=== PATIENT | female | born 1940 | race Caucasian/White ===

== ENCOUNTER 2018-04-18 14:25 | Inpatient (IN) ==
--- NOTE | 2018-04-18 15:22 | General Surgery Consult Note ---
<FadiEddie Ivanna - Last Filed: 04/18/18 17:13> Date of Encounter: 04/18/18 Time of Encounter: 15:50 Assessment and Plan (1) Mass of colon Current Visit: Yes Status: Acute CT shows mass in the sigmoid colon and bowel obstruction with dilated bowel loops Abdomen with tympany - unlikely to be able to have an adequate bowel prep for colonoscopy Labs: mild leukocytosis (13.8), no anemia, platelets 411, mild hypokalemia (3.1) , BUN and Cr normal PLAN: NPO in prep for OR IV fluids and antibiotics Replace potassium Will proceed with proctosigmoidectomy with diverting colostomy this evening - risks and benefits discussed, questions answered - signed consent completed (2) Bowel obstruction Current Visit: Yes Status: Acute Plan as above Qualifiers: Intestinal obstruction type: unspecified Intestinal obstruction extent: partial Qualified Code(s): K56.600 - Partial intestinal obstruction, unspecified as to cause History of Present Illness Consult date: 04/18/18 Reason for consult: other (sigmoid colon mass, perforated viscus) Requesting physician: Best Stevens History of present illness: Ms. Álvarez is a 78 year old female with PMH of dementia, HTN, HLD, hypothyroidism, and venous stasis, with PSH of tubal ligation, presented to [facility] with N/V/D and weakness for the past couple of days. She is very sleepy upon my exam. She can communicate and knows her name, but does not carry on much conversation beyond that. She has not been reporting abdominal pain. They report that she had no BM' s for the past couple of days, until this morning when she had diarrhea. Normally she has a BM daily, and intermittently she will have some mild diarrhea. No hematochezia, melena, or change in stool caliber. Family does report a 12# weight loss. no prior colonoscopy. She has care by family 24 hours a day. They report she has been refusing to eat or drink over this time period as well. Becoming increasingly confused. Normally able to walk around the house on her own. Also admits to a productive cough. No fevers or chills. She has not had anything to eat today. No smoking or alcohol history. No history of heart problems or lung problems. CT w/ IV contrast shows suspected infiltrating mass of the sigmoid colon. Mild dilatation of the colon proximal to the mass suggests an element of obstruction. Sigmoid diverticulosis with no evidence of diverticulitis. Cholelithiasis without findings of cholecystitis. Free fluid in the pelvis. Past Med Surg Social Fam HX - Past Medical History Medical history: hyperlipidemia, hypertension, thyroid disease, venous stasis Psychiatric history: depression - Social History Smoking Status: Never smoker Smokeless Tobacco Status: No Alcohol use: none Drug use: none Medications and Allergies Aspirin [Lo-Dose Aspirin EC] 81 mg PO DAILY 04/18/18 [History] Citalopram [CeleXA] 30 mg PO DAILY 04/18/18 [History] Donepezil HCl [Aricept] 10 mg PO HS 04/18/18 [History] Levothyroxine [Synthroid] 100 mcg PO DAILY 04/18/18 [History] Lisinopril-HCTZ 10-12.5 [Prinzide 10-12.5] 1 each PO DAILY 04/18/18 [History] Potassium Chloride [K-Tab ER] 20 meq PO DAILY 04/18/18 [History] Simvastatin [Zocor] 20 mg PO DAILY 04/18/18 [History] 3 Allergy/AdvReac Type Severity Reaction Status Date / Time No Known Allergies Allergy Verified 04/20/17 08:49 Review of Systems All systems PM: reviewed and no additional remarkable complaints except as stated All systems PM: The remainder of the systems were reviewed and are negative General Surgery Exam - General physical appearance well developed, well nourished, no distress - Eyes normal ocular movement - Respiratory normal expansion, normal respiratory effort, clear to auscultation - Cardiovascular Cardiovascular exam: Present: RRR - Abdomen Abdomen general surgery: Present: bowel sounds present, soft, tympanic, tender ( difficult to determine, pushes hand away when palpating LLQ), guarding, surgical scars (midline) - Integumentary Integumentary general surgery: Present: warm and dry, no abnormal pigmentation - Psychiatric Psychiatric general surgery: Present: oriented to person, oriented to place Results - Labs 04/18/18 15:56 All other labs normal. Consult Discharge Plan - Plan Referrals: Albertina Zapien MD [Primary Care Provider] - <Virgil Hernandez - Last Filed: 04/18/18 20:22> Date of Encounter: 04/18/18 Review of Systems All systems PM: The remainder of the systems were reviewed and are negative General Surgery Exam Initial Vital Signs Temp Pulse Resp BP Pulse Ox 99.3 F 80 14 128/77 97 04/18/18 16:36 04/18/18 16:36 04/18/18 16:36 04/18/18 16:36 04/18/18 16:36 Exam Initial Vital Signs Temp Pulse Resp BP Pulse Ox 99.3 F 80 14 128/77 97 04/18/18 16:36 04/18/18 16:36 04/18/18 16:36 04/18/18 16:36 04/18/18 16:36 Results - Labs 04/18/18 15:56 Abnormal lab results Potassium 3.3 mEq/L (3.5-5.1) L 04/18/18 15:56 Glucose 139 mg/dL (70-105) H 04/18/18 15:56 Diabetes panel 04/18/18 Range/Units 15:56 Sodium 139 (136-145) mEq/L Potassium 3.3 L (3.5-5.1) mEq/L Chloride 104 (98-107) mEq/L Carbon Dioxide 27 (23-29) mEq/L BUN 19 (8-23) mg/dL Creatinine 0.88 (0.60-1.20) mg/dL Glucose 139 H (70-105) mg/dL Calcium 8.9 (8.6-10.3) mg/dL Calcium panel 04/18/18 Range/Units 15:56 Calcium 8.9 (8.6-10.3) mg/dL Pituitary panel 04/18/18 Range/Units 15:56 Sodium 139 (136-145) mEq/L Potassium 3.3 L (3.5-5.1) mEq/L Chloride 104 (98-107) mEq/L Carbon Dioxide 27 (23-29) mEq/L BUN 19 (8-23) mg/dL Creatinine 0.88 (0.60-1.20) mg/dL Glucose 139 H (70-105) mg/dL Calcium 8.9 (8.6-10.3) mg/dL Adrenal panel 04/18/18 Range/Units 15:56 Sodium 139 (136-145) mEq/L Potassium 3.3 L (3.5-5.1) mEq/L Chloride 104 (98-107) mEq/L Carbon Dioxide 27 (23-29) mEq/L BUN 19 (8-23) mg/dL Creatinine 0.88 (0.60-1.20) mg/dL Glucose 139 H (70-105) mg/dL Calcium 8.9 (8.6-10.3) mg/dL All other labs normal. - Attending Attestation I examined this patient and my medical decision-making was reviewed with the Resident Physician. I agree with the documented findings, disposition and treatment plan as described except to the extent set forth below. The patient is seen and evaluated with resident after transfer from [place] emergency room. She has lost weight and not eaten for several days. She has mild hypokalemia. CAT scan demonstrates bowel obstruction at the level of the rectosigmoid. I personally reviewed the films and agree with the findings of a likely infiltrative mass at this level. In her age group, with no previous colonoscopy, colon cancer is at the top of the differential. Her colon is obstructed and I think that immediate exploration and Torrez's procedure is indicated. I shared this information with the family. Perioperative care and patients with this severity of dementia is always challenging. I also shared this with the family we will proceed with Torrez's procedure symptoms possible. Virgil Hernandez MD FACS
[2018-04-18] MEDS ORDERED: OXYCODONE Oral CONC 10 MG/0.5 ML ORAL.SYG SL PRN ×2 (15:25→21:55)
[2018-04-18] MEDS ORDERED: 0.9 % Sodium Chloride 1,000 ML IVC SCH (15:30)
[2018-04-18] MEDS ORDERED: MetroNIDAZOLE 500 MG/100 ML 500 MG/100 ML BAG IVPB SCH (16:00)
[2018-04-18 16:51] LABS: BUN/Creatinine Ratio 22 (6-26); Blood Urea Nitrogen 19 mg/dL (8-23); Calcium 8.9 mg/dL (8.6-10.3); Carbon Dioxide 27 mEq/L (23-29); Carcinoembryonic Antigen 1.4 ng/mL (Less than 5.0); Chloride 104 mEq/L (98-107); Glucose 139 mg/dL (70-105); Osmolality,Calculated 293 (280-300); Potassium 3.3 mEq/L (3.5-5.1); Sodium 139 mEq/L (136-145); eGFR For African Americans > 60 (> 60); eGFR For Non-African Americans > 60 (> 60)
--- NOTE | 2018-04-18 17:58 | Anesthesia Evaluation PreOp ---
Date of Encounter: 04/18/18 Time of Encounter: 18:00 - Past History Planned Operation: Torrez's Procedure Cardiac History: HTN, Hyperlipidemia Pulmonary History: Denies Any Significant HX COMPUTER SYSTEMS TECHNICIAN History: Denies Any Significant HX Other Medical History: Thyroid, Other (Depression) Anesthesia History: No Prior Anesthetic Complications : No Alcohol Use: none Drug use: none Medications and Allergies Aspirin [Lo-Dose Aspirin EC] 81 mg PO DAILY 04/18/18 [History] Citalopram [CeleXA] 30 mg PO DAILY 04/18/18 [History] Donepezil HCl [Aricept] 10 mg PO HS 04/18/18 [History] Levothyroxine [Synthroid] 100 mcg PO DAILY 04/18/18 [History] Lisinopril-HCTZ 10-12.5 [Prinzide 10-12.5] 1 each PO DAILY 04/18/18 [History] Potassium Chloride [K-Tab ER] 20 meq PO DAILY 04/18/18 [History] Simvastatin [Zocor] 20 mg PO DAILY 04/18/18 [History] 3 Allergy/AdvReac Type Severity Reaction Status Date / Time No Known Allergies Allergy Verified 04/20/17 08:49 - Meds/Allergy Pre-op Review Medications Reviewed: Yes Allergies Reviewed: Yes Beta Blockers on Current Med List: No Anesthesia Results - Labs 04/18/18 15:56 Laboratory Tests 04/18/18 04/18/18 10:05 15:56 Hgb 13.8 Hct 41.4 Plt Count 411 H Sodium 139 Potassium 3.3 L BUN 19 Creatinine 0.88 - Imaging EKG: report reviewed Anesthesia Exam Vital Signs/O2 Sat/Glucose, Most Current Temp Pulse Resp BP Pulse Ox 04/18/18 16:36 99.3 F 80 14 128/77 97 Height: 5'2 Weight: 174 lbs NPO (# of Hours): MN Pain Scale: 0 - HEENT Pupil (Motor): Pupils equal, EOMI Mallampati: II Oral Opening: Greater than 3 - COMPUTER SYSTEMS TECHNICIAN LOC: Oriented COMPUTER SYSTEMS TECHNICIAN Motor: Normal RUE, Normal LUE, Normal RLE, Normal LLE, Normal Face COMPUTER SYSTEMS TECHNICIAN Sensory: Normal: RUE, LUE, RLE, LLE, Face - Cardiac Rhythm: Regular Murmur: None JVD: No Carotid Bruit: No - Pulmonary Breath Sounds: bilateral Clear Respiratory Effort: Symmetrical Anesthesia Assess/Plan ASA Score: 2 Modified Isreal Scale for Level of Consciousness: Cooperative, oriented, and tranquil Anesthetic Plan: General, Regional (Discussed GA, possible TAP Block, agrees to proceed) Monitoring Plan: Standard Monitors Recovery Plan: PACU
[2018-04-18] MEDS ORDERED: Acetaminophen IV 1,000 MG/100 ML INFUS..BTL ONE (18:06)
[2018-04-18] MEDS ORDERED: Famotidine 20 MG/2 ML VIAL ONE (18:07)
[2018-04-18] MEDS ORDERED: *HR* Propofol 200 MG/20 ML VIAL IVP ONE (18:09)
[2018-04-18] MEDS ORDERED: *HR* FentaNYL (PF) 100 MCG/2 ML VIAL ONE ×2 (18:09→19:15)
[2018-04-18] MEDS ORDERED: *HR* Midazolam HCl 2 MG/2 ML VIAL ONE (18:09)
[2018-04-18] MEDS ORDERED: CefOXitin 1,000 MG VIAL ONE ×2 (18:10→19:25)
[2018-04-18] MEDS ORDERED: Dexamethasone 4 MG/ML VIAL ONE (18:24)
[2018-04-18] MEDS ORDERED: Ondansetron 4 MG/2 ML VIAL ONE (18:24)
[2018-04-18] MEDS ORDERED: *HR* Rocuronium Bromide 50 MG/5 ML VIAL ONE (18:24)
[2018-04-18] MEDS ORDERED: Lidocaine -MPF 2% 2 ML VIAL ONE (18:24)
[2018-04-18] MEDS ORDERED: *HR* Succinylcholine 200 MG/10 ML VIAL IVP ONE (18:24)
[2018-04-18] MEDS ORDERED: *HR* PHENYLEPHRINE 1,000 MCG/10 ML SYRINGE IVP ONE (18:42)
[2018-04-18] MEDS ORDERED: EPHEDrine 50 MG/ML VIAL ONE (18:49)
[2018-04-18] MEDS ORDERED: *HR* Morphine 10 MG/ML VIAL ONE (19:04)
[2018-04-18] MEDS ORDERED: Ondansetron 4 MG/2 ML VIAL IVP PRN (19:23)
[2018-04-18] MEDS ORDERED: Naloxone 0.4 MG/ML INJ IVP PRN ×2 (19:23→21:55)
--- NOTE | 2018-04-18 19:36 | Internal Med History&Physical ---
Date of Encounter: 04/18/18 Time of Encounter: 15:37 Internal Medicine - H&P: HPI Chief complaint: Sigmoid Colon Mass and Bowel Obstruction Admitted From: Intrahospital Transfer Plans for Post Hospital Care: Transfer Inp Rehab Fac History of present illness: Ms. Stinson is a 78 year old female who presented to [facility] ED today with a few day history of nausea, vomiting, diarrhea, poor PO intake, and generalized weakness. She has history of dementia, but usually awake and conservative. She is somnolent at this time and cannot provide any history. Family is in room and provides all of history. Patient shakes her head and denies any pain at this time. She has only had diarrhea starting today. Family denies hematochezia or melena. Family denies hematemesis. She has started to become increasingly confused from her baseline. She was previously walking on her own. At [facility] ED, she was found to have WBC of 13.8 and potassium of 3.1. CXR showed bibasilar atelectasis. CT abdomen/pelvis showed suspected infiltrating mass of sigmoid colon and mild dilatation of colon proximal to mass suggesting obstruction. She was given IV KCl and IV NS in [place] ED. She was transferred here for surgical consultation. Dr. Hernandez was surgeon consulted. I discussed case in person with him. He is planning to take to OR and perform proctosigmoidectomy with diverting colostomy this evening. He discussed risks family, and they are in agreement with proceeding with surgery. Past Med Surg Social Fam HX - Past Medical History Attestation: Yes The following information was validated with the patient. Source: obtained from family Medical history: hyperlipidemia, hypertension, thyroid disease, venous stasis Psychiatric history: depression - Past Surgical History Surgical History: no surgical history - Social History Smoking Status: Never smoker Smokeless Tobacco Status: No Alcohol use: none Drug use: none - Additional Family History Additional family history: No significant family history per patient's family. Internal Medicine - H&P: Meds Aspirin [Lo-Dose Aspirin EC] 81 mg PO DAILY 04/18/18 [History] Citalopram [CeleXA] 30 mg PO DAILY 04/18/18 [History] Donepezil HCl [Aricept] 10 mg PO HS 04/18/18 [History] Levothyroxine [Synthroid] 100 mcg PO DAILY 04/18/18 [History] Lisinopril-HCTZ 10-12.5 [Prinzide 10-12.5] 1 each PO DAILY 04/18/18 [History] Potassium Chloride [K-Tab ER] 20 meq PO DAILY 04/18/18 [History] Simvastatin [Zocor] 20 mg PO DAILY 04/18/18 [History] 3 Allergy/AdvReac Type Severity Reaction Status Date / Time No Known Allergies Allergy Verified 04/20/17 08:49 All Systems PM: Unable to obtain ROS from patient due to non-verbal and altered status. - Constitutional Vitals: Temp Pulse Resp BP Pulse Ox 99.3 F 80 14 128/77 97 04/18/18 16:36 04/18/18 16:36 04/18/18 16:36 04/18/18 16:36 04/18/18 16:36 General appearance: Present: A&O X 0, cooperative, no acute distress. Absent: answers questions appropriately Exam: Non-verbal - Head Head exam: Present: atraumatic, normal inspection, normocephalic - Eye Eye exam: Present: EOMI, PERRL. Absent: conjunctival injection, nystagmus, scleral icterus - ENT ENT exam: Present: mucous membranes moist, normal external ear exam, normal oropharynx - Neck Neck exam general surgery: Present: supple, trachea midline. Absent: lymphadenopathy, tenderness, thyromegaly - Respiratory Respiratory exam: Present: CTAB. Absent: accessory muscle use, rales, rhonchi, wheezes Additional comments: Normal WOB - Cardiovascular Cardiovascular exam: Present: RRR, +S1, +S2. Absent: diastolic murmur, gallop, rubs, systolic murmur Additional comments: No BLE edema - GI/Abdominal GI/Abdominal exam: Present: hyperactive bowel sounds (Tympanic, high-pitched bowel sounds loudest in LLQ), soft, tenderness (Mild TTP diffusely across abdomen). Absent: distended, guarding, hepatomegaly, mass, rebound, splenomegaly - Neurological Exam Neurological exam: Present: no focal deficits. Absent: motor sensory deficit, facial droop Additional comments: Unable to fully evaluate due to patient condition - Psychiatric Additional comments: Unable to evaluate due to patient condition - Skin Skin exam: Present: dry, intact, warm. Absent: cyanosis, rash Internal Med - H&P Results - Labs CBC & Chem 7: 04/18/18 15:56 Labs: BMP 04/18/18 15:56 Sodium 139 Potassium 3.3 L Chloride 104 Carbon Dioxide 27 BUN 19 Creatinine 0.88 Glucose 139 H Calcium 8.9 - Assessment and plan (1) Bowel obstruction Current Visit: Yes Status: Acute Assessment and plan: Secondary to sigmoid colon mass. Surgery consulted; appreciate input. I have discussed case in person with Dr. Hernandez, who plans on taking patient for proctosigmoidectomy with diverting colostomy this evening. Will continue NPO, IVF, replete electrolytes, and control N/V with IV zofran. Oxycodone SL PRN pain. Start IV protonix for GI prophylaxis. Start IV flagyl and IV cipro. Recheck labwork in AM. PT/OT/SW consulted for discharge planning. Qualifiers: Intestinal obstruction type: unspecified Intestinal obstruction extent: partial Qualified Code(s): K56.600 - Partial intestinal obstruction, unspecified as to cause (2) Mass of colon Current Visit: Yes Status: Acute Assessment and plan: Management as per above. Plan for surgery today. Follow up on biopsy results. May need heme/onc consult based on biopsy results. (3) Hypokalemia Current Visit: Yes Status: Acute Assessment and plan: K= 3.3. Give KCl 40 mEq IV once. Recheck BMP in AM. (4) Atelectasis of both lungs Current Visit: Yes Status: Acute Assessment and plan: Start incentive spirometer when awake and post-op. (5) HTN (hypertension) Current Visit: Yes Status: Chronic Assessment and plan: Continue home medications when tolerating PO. Start hydralazine 10 mg IV Q6H PRN systolic BP > 160 and/or diastolic BP > 100. Qualifiers: Hypertension type: essential hypertension Qualified Code(s): I10 - Essential (primary) hypertension (6) HLD (hyperlipidemia) Current Visit: Yes Status: Chronic Assessment and plan: Continue home medications when tolerating PO. Qualifiers: Hyperlipidemia type: mixed hyperlipidemia Qualified Code(s): E78.2 - Mixed hyperlipidemia (7) Hypothyroidism Current Visit: Yes Status: Acute Assessment and plan: Hold home PO levothyroxine until tolerating PO. Start IV levothyroxine at home dose for now. Qualifiers: Hypothyroidism type: unspecified Qualified Code(s): E03.9 - Hypothyroidism , unspecified (8) DVT prophylaxis Current Visit: Yes Status: Acute Assessment and plan: Start SQ heparin. - Time Spent With Patient Total time spent is greater than 50% in coordination of care (as documented) at patient's floor/unit and/or counseling patient: less than 15 minutes
[2018-04-18] MEDS ORDERED: Povidone-Iodine 28.4 GM TUBE TP ONE (19:41)
[2018-04-18] MEDS ORDERED: Levothyroxine Sodium 100 MCG VIAL IVP SCH (19:45)
[2018-04-18] MEDS ORDERED: Pantoprazole 40 MG VIAL IVP SCH (19:45)
[2018-04-18] MEDS ORDERED: Bupivacaine/EPI 1:200k 0.5%PF 30 ML VIAL ONE (19:49)
--- NOTE | 2018-04-18 20:33 | Operative Note ---
Date of procedure: 04/18/18 Pre-op diagnosis: Sigmoid colon obstruction secondary to infiltrating mass Post-op diagnosis: other (Sigmoid colon obstruction indistinct infiltrating mass ) Procedure: Torrez's procedure. Sigmoid colectomy with end colostomy Anesthesia: MEGAN Surgeon: Virgil Hernandez Was there an assistant director of plant operations present: Yes Director Radio News: Lyric Romero Estimated blood loss (cc): 75 Specimen: Sigmoid colon and rectosigmoid mass Condition: stable Disposition: PACU Procedure in Detail: After informed consent the patient was taken to the major operative suite placed supine position given adequate general anesthetic. Norton catheter was placed. The abdomen was prepped and draped in sterile fashion utilizing ChloraPrep standard draping techniques. Timeout was taken and patient was identified. Made a lower abdominal midline incision. The abdomen was entered. There were some adhesions between the fallopian tube in the sigmoid colon. The sigmoid colon and cecum were very dilated. There was transudate fluid in the abdomen consistent with bowel obstruction. We traced the dilated sigmoid colon to the rectosigmoid. The rectum was absolutely flaccid. The rectosigmoid was rock hard over a 4 cm length. I was able to mobilize the fallopian tubes and uterus off the rectosigmoid and sigmoid colon. I divided the lateral peritoneal attachments to the rectosigmoid. The sigmoid colon was divided at its midportion with a stapler. The end of the staple line failed and there was some spillage of stool in the abdomen. The area of staple line failure was immediately closed with interrupted silk. There was no further spillage. I divided the sigmoid mesentery with clamps and hemostatic ligatures. I obtained full mobilization rectum. I divided the rectum just below the level of the pelvic inlet. This was done with contour stapler and staple line was intact. I divided the remaining portions of the mesentery to the rectum. Specimen was passed off the field clinically a rockhard mass about 4 cm the sigmoid colon was mobilized. I irrigated the abdomen with copious amounts of antibiotic containing solution. I made an opening in the left lower quadrant and brought the sigmoid colon out in a tension-free manner to perform end colostomy. I irrigated the abdomen again and closed the midline with looped 0 PDS. Skin was closed with interrupted Vicryl and skin clips. I matured the colostomy with 3 point 3-0 Vicryl's. She tolerated the procedure well. I opened the specimen. I was unable to identify any mucosal defect consistent with malignancy. The differential diagnosis still includes colon cancer but now also includes perforated diverticular disease with severe scar causing complete colon obstruction. She tolerated the procedure well and was transferred to recovery in stable condition
--- NOTE | 2018-04-18 22:17 | Anesthesia Evaluation Post Op ---
Date of Encounter: 04/18/18 Time of Encounter: 22:16 - Vital Signs Vital Signs: Vital Signs/O2 Sat, Most Current Temp Pulse Resp BP Pulse Ox 97.5 F L 111 18 112/70 96 04/18/18 22:00 04/18/18 22:00 04/18/18 22:00 04/18/18 22:00 04/18/18 22:00 - Lungs Lungs: Clear Ascult./Percussion - Airway Airway: Non-obstructed - Cardiovascular Regular Rate - Mental Status Mental Status: Asleep with brisk response to light stimulation, Baseline Status - Pain Pain Scale: 0 Pain Scale used: Numeric (1 - 10) - Nausea Vomiting Nausea Vomiting: Not Present - Hydration Hydration: NPO, Norton catheter - Discharge PostOp Status: Transfer Patient to floor
[2018-04-18] MEDS: 0.9 % Sodium Chloride 1,000 ML IVC SCH (23:09)
[2018-04-19] MEDS: MetroNIDAZOLE 500 MG/100 ML 500 MG/100 ML BAG IVPB SCH ×3 (00:27→15:19)
[2018-04-19 05:30] LABS: Basophils % 0.1 %; Hematocrit 39.3 % (35.3-44.9); Hemoglobin 12.6 g/dL (11.5-15.4); Immature Granulocytes % 0.2 % (0-4); Lymphocytes # 0.4 K/mcL (0.6-4.6); Lymphocytes % 4.4 %; Mean Corpuscular HGB Conc 32.1 g/dL (31.6-35.5); Mean Corpuscular Hemoglobin 28.3 pg (28.0-33.3); Mean Corpuscular Volume 88.1 fL (83.0-100.0); Mean Platelet Volume 10.8 fL (9.4-12.4); Monocytes # 0.4 K/mcL (0.0-1.3); Monocytes % 4.7 %; Neutrophils # 8.2 K/mcL (1.6-8.9); Platelet Count 331 K/mcL (140-400); Red Blood Count 4.46 M/mcL (3.82-4.97); Red Cell Distribution Width 13.4 % (11.5-14.5); Segmented Neutrophils % 90.6 %
[2018-04-19 05:38] LABS: INR 1.3; Prothrombin Time 14.2 Seconds (9.4-12.1)
[2018-04-19 05:41] LABS: Activated Partial Thrombo Time 27.2 Seconds (26.0-36.0)
[2018-04-19 05:45] LABS: Platelet Estimate Normal (Normal)
[2018-04-19 05:54] LABS: Alanine Aminotransferase 20 Units/L (7-52); Albumin 2.8 g/dL (3.5-5.7); Alkaline Phosphatase 80 Units/L (34-104); Aspartate Amino Transferase 21 Units/L (13-39); BUN/Creatinine Ratio 17 (6-26); Bilirubin,Total 0.8 mg/dL (0.3-1.0); Blood Urea Nitrogen 16 mg/dL (8-23); Calcium 7.7 mg/dL (8.6-10.3); Carbon Dioxide 20 mEq/L (23-29); Chloride 108 mEq/L (98-107); Globulin 2.7 g/dL (2.4-3.5); Glucose 216 mg/dL (70-105); Magnesium 1.4 mg/dL (1.6-2.6); Osmolality,Calculated 294 (280-300); Phosphorous 3.2 mg/dL (2.7-4.5); Potassium 3.4 mEq/L (3.5-5.1); Sodium 138 mEq/L (136-145); Total Protein 5.5 g/dL (6.4-8.9); eGFR For African Americans > 60 (> 60); eGFR For Non-African Americans 59 (> 60)
[2018-04-19] MEDS: 0.9 % Sodium Chloride 1,000 ML IVC SCH ×3 (05:55→16:52)
[2018-04-19] MEDS: *HR* Heparin 5,000 UNIT/ML VIAL SQ SCH ×2 (05:55→16:52)
[2018-04-19] MEDS ORDERED: *HR* Heparin 5,000 UNIT/ML VIAL SQ SCH (06:00)
[2018-04-19] MEDS ORDERED: Levothyroxine Sodium 100 MCG VIAL IVP SCH (06:30)
[2018-04-19] MEDS ORDERED: Potassium Chloride 40 MEQ, Lidocaine 1% 2 ML in D5% in Water 500 ML IVPB ONE (07:19)
--- NOTE | 2018-04-19 08:07 | Internal Med Progress Note ---
<Eric Cevallos - Last Filed: 04/19/18 13:30> Date of Encounter: 04/19/18 Time of Encounter: 08:05 - Assessment and plan (1) Bowel obstruction Current Visit: Yes Status: Resolved Assessment and plan: Secondary to sigmoid colon mass. POD#1 s/p Torrez's procedure, sigmoid colectomy with end colostomy Surgery following Continue NPO, IVF, replete electrolytes, and control N/V with IV zofran. Oxycodone SL PRN pain. Continue IV protonix for GI prophylaxis Continue IV flagyl and IV cipro. Recheck labwork in AM. Advance diet once approved by surgeon PT/OT/SW consulted for discharge planning. Qualifiers: Intestinal obstruction type: unspecified Intestinal obstruction extent: partial Qualified Code(s): K56.600 - Partial intestinal obstruction, unspecified as to cause (2) Mass of colon Current Visit: Yes Status: Resolved Assessment and plan: Management as per above. Torrez's procedure, Sigmoid colectomy with end colostomy performed 04/18/18 CEA 1.4 Follow up on biopsy results. May need heme/onc consult based on biopsy results. (3) Atelectasis of both lungs Current Visit: Yes Status: Acute Assessment and plan: Encourage incentive spirometery when awake post-op. (4) Hypokalemia Current Visit: Yes Status: Acute Assessment and plan: Given KCl 40 mEq IV Recheck BMP in AM. (5) Hypomagnesemia Current Visit: Yes Status: Acute Assessment and plan: Supplement Mag Continue to monitor (6) HTN (hypertension) Current Visit: Yes Status: Chronic Assessment and plan: Continue home medications when tolerating PO. Continue hydralazine 10 mg IV Q6H PRN systolic BP > 160 and/or diastolic BP > 100. Qualifiers: Hypertension type: essential hypertension Qualified Code(s): I10 - Essential (primary) hypertension (7) HLD (hyperlipidemia) Current Visit: Yes Status: Chronic Assessment and plan: Continue home medications when tolerating PO. Qualifiers: Hyperlipidemia type: mixed hyperlipidemia Qualified Code(s): E78.2 - Mixed hyperlipidemia (8) Hypothyroidism Current Visit: Yes Status: Acute Assessment and plan: Hold home PO levothyroxine until tolerating PO. Continue IV levothyroxine at home dose for now. Qualifiers: Hypothyroidism type: unspecified Qualified Code(s): E03.9 - Hypothyroidism , unspecified (9) Dementia Current Visit: Yes Status: Chronic Assessment and plan: Continue home meds Qualifiers: Dementia type: unspecified type Dementia behavioral disturbance: without behavioral disturbance Qualified Code(s): F03.90 - Unspecified dementia without behavioral disturbance (10) Obesity (BMI 30.0-34.9) Current Visit: No Status: Chronic Assessment and plan: Lifestyle modification (11) DVT prophylaxis Current Visit: Yes Status: Acute Assessment and plan: SQ heparin. 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 Patient denies any c/o. Surgical dressing is intact. - Constitutional Vitals: Temp Pulse Resp BP Pulse Ox 97.5 F L 77 16 94/56 93 04/19/18 07:23 04/19/18 07:23 04/19/18 07:23 04/19/18 07:23 04/19/18 07:23 General appearance: Present: A&O X 0, cooperative, no acute distress, obese. Absent: answers questions appropriately - Head Head exam: Present: atraumatic, normocephalic - Eye Eye exam: Present: PERRL, conjuntiva pink, sclera anicteric Pupils: Present: PERRL - ENT ENT exam: Present: mucous membranes dry, normal oropharynx - Neck Neck exam general surgery: Present: supple, trachea midline. Absent: lymphadenopathy - Respiratory Respiratory exam: Present: CTAB. Absent: accessory muscle use, rales, rhonchi, wheezes - Cardiovascular Cardiovascular exam: Present: RRR, +S1, +S2. Absent: diastolic murmur, gallop, rubs, systolic murmur - GI/Abdominal GI/Abdominal exam: Present: normal bowel sounds, soft, tenderness (appropriate TTP, colostomy site intact), no peritoneal signs. Absent: distended - Extremities Exam Extremities exam: Present: warm, radial pulses palpable and symmetrical. Absent : calf tenderness, cyanotic, pedal edema - Incison Incision: Present: clean and dry, intact - Back Exam Back exam: Present: normal inspection. Absent: paraspinal tenderness, tenderness - Neurological Exam Neurological exam: Present: CN II-XII intact, no focal deficits. Absent: pronater drift, facial droop, speech deficit - Psychiatric Psychiatric exam: Present: normal affect, normal mood - Skin Skin exam: Present: dry, intact, warm Internal Medicine: Result - Labs CBC & Chem 7: 04/19/18 04:19 04/19/18 04:19 Labs: Short CBC 04/19/18 Range/Units 04:19 WBC 9.1 (4.3-11.1) K/mcL Hgb 12.6 (11.5-15.4) g/dL Hct 39.3 (35.3-44.9) % Plt Count 331 (140-400) K/mcL Neutrophils # 8.2 (1.6-8.9) K/mcL BMP 04/18/18 04/19/18 15:56 04:19 Sodium 139 138 Potassium 3.3 L 3.4 L Chloride 104 108 H Carbon Dioxide 27 20 L BUN 19 16 Creatinine 0.88 0.92 Glucose 139 H 216 H Calcium 8.9 7.7 L Liver Function 04/19/18 Range/Units 04:19 Total Bilirubin 0.8 (0.3-1.0) mg/dL AST 21 (13-39) Units/L ALT 20 (7-52) Units/L Alkaline Phosphatase 80 (34-104) Units/L Albumin 2.8 L (3.5-5.7) g/dL - ABG Interpretation ABG results: PT/INR, D-dimer PT 14.2 Seconds (9.4-12.1) H 04/19/18 04:19 - Pulse Oximetry Interpretation Digit-Finger Pulse Oximetry Readin (On RA) - VTE Documentation of Mechanical Device: Intermittent pneumatic compression device Consult Discharge Plan - Plan Referrals: Albertina Zapien MD [Primary Care Provider] - <Emily Sparks - Last Filed: 04/19/18 14:54> Date of Encounter: 04/19/18 - Assessment and plan (1) Mass of colon Current Visit: Yes Status: Resolved (2) Bowel obstruction Current Visit: Yes Status: Resolved Qualifiers: Intestinal obstruction type: unspecified Intestinal obstruction extent: partial Qualified Code(s): K56.600 - Partial intestinal obstruction, unspecified as to cause (3) Atelectasis of both lungs Current Visit: Yes Status: Acute (4) Hypokalemia Current Visit: Yes Status: Acute (5) HTN (hypertension) Current Visit: Yes Status: Chronic Qualifiers: Hypertension type: essential hypertension Qualified Code(s): I10 - Essential (primary) hypertension (6) HLD (hyperlipidemia) Current Visit: Yes Status: Chronic Qualifiers: Hyperlipidemia type: mixed hyperlipidemia Qualified Code(s): E78.2 - Mixed hyperlipidemia (7) Hypothyroidism Current Visit: Yes Status: Acute Qualifiers: Hypothyroidism type: unspecified Qualified Code(s): E03.9 - Hypothyroidism , unspecified (8) DVT prophylaxis Current Visit: Yes Status: Acute (9) Hypomagnesemia Current Visit: Yes Status: Acute (10) Dementia Current Visit: Yes Status: Chronic Qualifiers: Dementia type: unspecified type Dementia behavioral disturbance: without behavioral disturbance Qualified Code(s): F03.90 - Unspecified dementia without behavioral disturbance (11) Obesity (BMI 30.0-34.9) Current Visit: No Status: Chronic (12) Protein-calorie malnutrition, moderate Current Visit: Yes Status: Acute - Time Spent With Patient Total time spent is greater than 50% in coordination of care (as documented) at patient's floor/unit and/or counseling patient: - Constitutional Vitals: Temp Pulse Resp BP Pulse Ox 99.9 F H 129 15 94/57 96 04/19/18 12:18 04/19/18 12:18 04/19/18 12:18 04/19/18 12:18 04/19/18 12:18 Internal Medicine: Result - Labs CBC & Chem 7: 04/19/18 04:19 04/19/18 04:19 Labs: Short CBC 04/19/18 Range/Units 04:19 WBC 9.1 (4.3-11.1) K/mcL Hgb 12.6 (11.5-15.4) g/dL Hct 39.3 (35.3-44.9) % Plt Count 331 (140-400) K/mcL Neutrophils # 8.2 (1.6-8.9) K/mcL BMP 04/18/18 04/19/18 15:56 04:19 Sodium 139 138 Potassium 3.3 L 3.4 L Chloride 104 108 H Carbon Dioxide 27 20 L BUN 19 16 Creatinine 0.88 0.92 Glucose 139 H 216 H Calcium 8.9 7.7 L Liver Function 04/19/18 Range/Units 04:19 Total Bilirubin 0.8 (0.3-1.0) mg/dL AST 21 (13-39) Units/L ALT 20 (7-52) Units/L Alkaline Phosphatase 80 (34-104) Units/L Albumin 2.8 L (3.5-5.7) g/dL - ABG Interpretation ABG results: PT/INR, D-dimer PT 14.2 Seconds (9.4-12.1) H 04/19/18 04:19 - Attending Attestation I examined this patient and my medical decision-making was reviewed with the Resident Physician Dr. Cevallos. I agree with the documented findings, disposition and treatment plan as described except to the extent set forth below. Ms. Stinson is a 78 year old female who presented to [facility] ED with a few day history of nausea, vomiting, diarrhea, poor PO intake, and generalized weakness. Family denies hematochezia or melena. Family denies hematemesis. At [facility] ED, she was found to have WBC of 13.8 and potassium of 3.1. CXR showed bibasilar atelectasis. CT abdomen/pelvis showed suspected infiltrating mass of sigmoid colon and mild dilatation of colon proximal to mass suggesting obstruction. Pt was admitted her and went to OR for perform proctosigmoidectomy with diverting colostomy last night. Pt is resting comfortably. Noticed stool in colostomy bag. Gen: Sleepy Chest: DBS b/l Heart: S1S2+ RRR Abd; Colostomy bag +, Dressing on over incisions a/p 1. Acute bowel obstruction due to sigmoid colon mass 2. s/p Torrez's procedure. Sigmoid colectomy with end colostomy cont post op care as per Surgery IV hydration NPO for now empirical abx close monitoring of electrolytes
[2018-04-19] MEDS: Pantoprazole 40 MG VIAL IVP SCH (08:23)
--- NOTE | 2018-04-19 09:30 | General Surgery Progress Note ---
<FadiEddie Ivanna - Last Filed: 04/19/18 09:28> Date of Encounter: 04/19/18 Time of Encounter: 07:30 - Assessment and Plan (1) Bowel obstruction Current Visit: Yes Status: Inactive POD #1 s/p Torrez's procedure - sigmoidectomy with diverting colostomy. Stool present in colostomy this morning - final pathology pending: appearance not entirely convincing for colon cancer - DDX: colon cancer, severe scar from perforated diverticulum CT shows mass in the sigmoid colon and bowel obstruction with dilated bowel loops Labs: leukocytosis resolved, no anemia, mild hypokalemia, BUN and Cr normal PLAN: NPO IV fluids and antibiotics Pain and nausea control Replace potassium Qualifiers: Intestinal obstruction type: unspecified Intestinal obstruction extent: partial Qualified Code(s): K56.600 - Partial intestinal obstruction, unspecified as to cause (2) Mass of colon Current Visit: Yes Status: Inactive Plan as above Pathology pending Subjective Patient reports: afebrile Narrative: Pt very somnolent upon my exam. Abdomen appears with mild tenderness. Colostomy with stool. Objective Vital Signs - Last 8 Hours Temp Pulse Resp BP Pulse Ox 04/19/18 07:23 97.5 F L 77 16 94/56 93 04/19/18 04:43 97.8 F 112 15 106/68 96 Intake and Output 04/18/18 04/19/18 04/19/18 23:59 07:59 15:59 Intake Total 0 / 0 1300 / 1300 200 / 200 Output Total 75 / 75 150 / 150 Balance -75 / -75 1150 / 1150 200 / 200 Intake: IV Fluids 1300 / 1300 200 / 200 0.9 % Sodium Chloride 1,000 ML 1000 / 1000 @ 125 mls/hr IVC .Q8H [facility] Rx#: [id number] Cipro Premix 400 MG/200 ML 400 200 / 200 mg In 200 ml @ 200 mls/hr IVPB Q12H [facility] Rx#:[id number] Flagyl Premix 500 MG/100 ML 500 100 / 100 mg In 100 ml @ 100 mls/hr IVPB Q8HR [facility] Rx#:[id number] Potassium Chloride 10 mEq/100mL 200 / 200 10 meq In 100 ml @ 100 mls/hr IVPB Q1H [facility] Rx#:[id number] Oral 0 / 0 0 / 0 Output: Urine 0 / 0 Estimated Blood Loss 75 / 75 Catheter 150 / 150 Other: Meal NPO Dinner Weight 79.1 kg Blood Glucose* 172 - General physical appearance no distress - Respiratory normal expansion, normal respiratory effort - Cardiovascular Cardiovascular exam: Present: RRR - Abdomen Abdomen: Present: bowel sounds present, soft, tender (appropriately) - Incision Incision: Present: clean and dry, intact, open (ostomy pink, stool present in colostomy bag) - Labs 04/19/18 04:19 04/19/18 04:19 Diabetes panel 04/18/18 04/19/18 Range/Units 15:56 04:19 Sodium 139 138 (136-145) mEq/L Potassium 3.3 L 3.4 L (3.5-5.1) mEq/L Chloride 104 108 H (98-107) mEq/L Carbon Dioxide 27 20 L (23-29) mEq/L BUN 19 16 (8-23) mg/dL Creatinine 0.88 0.92 (0.60-1.20) mg/dL Glucose 139 H 216 H (70-105) mg/dL Calcium 8.9 7.7 L (8.6-10.3) mg/dL AST 21 (13-39) Units/L ALT 20 (7-52) Units/L Alkaline Phosphatase 80 (34-104) Units/L Albumin 2.8 L (3.5-5.7) g/dL Calcium panel 04/18/18 04/19/18 Range/Units 15:56 04:19 Calcium 8.9 7.7 L (8.6-10.3) mg/dL Phosphorus 3.2 (2.7-4.5) mg/dL Albumin 2.8 L (3.5-5.7) g/dL Pituitary panel 04/18/18 04/19/18 Range/Units 15:56 04:19 Sodium 139 138 (136-145) mEq/L Potassium 3.3 L 3.4 L (3.5-5.1) mEq/L Chloride 104 108 H (98-107) mEq/L Carbon Dioxide 27 20 L (23-29) mEq/L BUN 19 16 (8-23) mg/dL Creatinine 0.88 0.92 (0.60-1.20) mg/dL Glucose 139 H 216 H (70-105) mg/dL Calcium 8.9 7.7 L (8.6-10.3) mg/dL Adrenal panel 04/18/18 04/19/18 Range/Units 15:56 04:19 Sodium 139 138 (136-145) mEq/L Potassium 3.3 L 3.4 L (3.5-5.1) mEq/L Chloride 104 108 H (98-107) mEq/L Carbon Dioxide 27 20 L (23-29) mEq/L BUN 19 16 (8-23) mg/dL Creatinine 0.88 0.92 (0.60-1.20) mg/dL Glucose 139 H 216 H (70-105) mg/dL Calcium 8.9 7.7 L (8.6-10.3) mg/dL Total Bilirubin 0.8 (0.3-1.0) mg/dL AST 21 (13-39) Units/L ALT 20 (7-52) Units/L Alkaline Phosphatase 80 (34-104) Units/L Albumin 2.8 L (3.5-5.7) g/dL - VTE Documentation of Mechanical Device: Intermittent pneumatic compression device Consult Discharge Plan - Plan Additional Instructions: will continue to follow loosely please see recommendations above Referrals: Albertina Zapien MD [Primary Care Provider] - <Virgil Hernandez - Last Filed: 04/21/18 09:35> Date of Encounter: 04/19/18 Objective Vital Signs - Last 8 Hours Temp Pulse Resp BP Pulse Ox 04/21/18 08:04 98.4 F 108 19 119/73 97 04/21/18 05:29 98.9 F 105 20 133/86 98 Intake and Output 04/20/18 04/21/18 04/21/18 23:59 07:59 15:59 Intake Total 400 / 400 300 / 300 1000 / 1000 Output Total 695 / 695 150 / 150 Balance -295 / -295 150 / 150 1000 / 1000 Intake: IV Fluids 400 / 400 300 / 300 1000 / 1000 0.9 % Sodium Chloride 1,000 ML 1000 / 1000 @ 75 mls/hr IVC .[id number] [facility] Rx #:[id number] Ofirmev 1,000 mg/100 ml 1,000 100 / 100 200 / 200 mg In 100 ml @ 400 mls/hr IVPB Q6HR [facility] Rx#:[id number] Cipro Premix 400 MG/200 ML 400 200 / 200 mg In 200 ml @ 200 mls/hr IVPB Q12H [facility] Rx#:[id number] Flagyl Premix 500 MG/100 ML 500 100 / 100 100 / 100 mg In 100 ml @ 100 mls/hr IVPB Q8HR [facility] Rx#:[id number] Output: Stool 175 / 175 150 / 150 Catheter 520 / 520 Other: Stool Consistency loose Stool Color Green Black # Urine Diapers 1 Weight 87.1 kg Blood Glucose* 104 107 Patient Weight 04/21/18 23:59 Weight 87.1 kg - Labs 04/21/18 04:19 04/21/18 04:19 Diabetes panel 04/21/18 Range/Units 04:19 Sodium 139 (136-145) mEq/L Potassium 3.2 L (3.5-5.1) mEq/L Chloride 114 H (98-107) mEq/L Carbon Dioxide 21 L (23-29) mEq/L BUN 17 (8-23) mg/dL Creatinine 0.80 (0.60-1.20) mg/dL Glucose 121 H (70-105) mg/dL Calcium 7.7 L (8.6-10.3) mg/dL Calcium panel 04/21/18 Range/Units 04:19 Calcium 7.7 L (8.6-10.3) mg/dL Pituitary panel 04/21/18 Range/Units 04:19 Sodium 139 (136-145) mEq/L Potassium 3.2 L (3.5-5.1) mEq/L Chloride 114 H (98-107) mEq/L Carbon Dioxide 21 L (23-29) mEq/L BUN 17 (8-23) mg/dL Creatinine 0.80 (0.60-1.20) mg/dL Glucose 121 H (70-105) mg/dL Calcium 7.7 L (8.6-10.3) mg/dL Adrenal panel 04/21/18 Range/Units 04:19 Sodium 139 (136-145) mEq/L Potassium 3.2 L (3.5-5.1) mEq/L Chloride 114 H (98-107) mEq/L Carbon Dioxide 21 L (23-29) mEq/L BUN 17 (8-23) mg/dL Creatinine 0.80 (0.60-1.20) mg/dL Glucose 121 H (70-105) mg/dL Calcium 7.7 L (8.6-10.3) mg/dL - Attending Attestation I examined this patient and my medical decision-making was reviewed with the Resident Physician. I agree with the documented findings, disposition and treatment plan as described except to the extent set forth below. The patient is seen and evaluated on morning rounds with the resident. She has profound dementia. She had disorientation last night and removed her ostomy appliance as well as pulled her IV. She now has a 24-hour sitter. The level of dementia we will make postoperative care very challenging. We will continue maximum supportive care. Virgil Hernandez MD FACS
[2018-04-19] MEDS ORDERED: Ketorolac 15 MG/ML VIAL IVP ONE (09:53)
[2018-04-19] MEDS: Acetaminophen IV 1,000 MG/100 ML INFUS..BTL IVPB SCH ×3 (12:23→23:59)
[2018-04-19] MEDS ORDERED: OXYCODONE Oral CONC 10 MG/0.5 ML ORAL.SYG SL PRN (15:09)
[2018-04-19] MEDS: Haloperidol Lactate 5 MG/ML VIAL IVP PRN ×2 (15:18→22:06)
[2018-04-19] MEDS: OXYCODONE Oral CONC 10 MG/0.5 ML ORAL.SYG SL PRN (16:51)
[2018-04-19] MEDS ORDERED: Haloperidol Lactate 5 MG/ML VIAL IVP ONE (17:02)
[2018-04-19] MEDS: *HR* FentaNYL (PF) 100 MCG/2 ML VIAL IVP PRN (17:12)
[2018-04-19] MEDS ORDERED: *HR* LORazepam 2 MG/ML VIAL IVP ONE (20:44)
[2018-04-20] MEDS: MetroNIDAZOLE 500 MG/100 ML 500 MG/100 ML BAG IVPB SCH ×3 (00:06→15:34)
[2018-04-20] MEDS: *HR* FentaNYL (PF) 100 MCG/2 ML VIAL IVP PRN ×3 (03:06→15:33)
[2018-04-20] MEDS: Acetaminophen IV 1,000 MG/100 ML INFUS..BTL IVPB SCH ×3 (05:50→19:54)
[2018-04-20] MEDS: 0.9 % Sodium Chloride 1,000 ML IVC SCH ×2 (05:51→13:20)
[2018-04-20] MEDS: *HR* Heparin 5,000 UNIT/ML VIAL SQ SCH ×2 (05:51→18:50)
--- NOTE | 2018-04-20 06:09 | Event Note ---
Date of Encounter: 04/20/18 Time of Encounter: 06:01 On day team patient was placed in restraints due to aggressiveness towards staff and pulling IVs out and her colostomy bag off. During the night patient was checked on multiple occasions to assess if she was able to have her order for soft restraints removed but per nurse the couple of times they had taken her restraints off that night in attempts she immediately was pulling at her IV. Restraint sights were checked with no signs of skin break down or ischemia. Pulses were present bilaterally. Patient continued to be confused and mumble words but was not responding to any of my questions. Soft restraints were continued for patient's safety and to complete treatment.
[2018-04-20 06:28] LABS: Hematocrit 31.4 % (35.3-44.9); Immature Platelets 2.8 % (1.1-6.1); Mean Corpuscular HGB Conc 32.2 g/dL (31.6-35.5); Mean Corpuscular Hemoglobin 27.9 pg (28.0-33.3); Mean Corpuscular Volume 86.7 fL (83.0-100.0); Mean Platelet Volume 10.8 fL (9.4-12.4); Red Blood Count 3.62 M/mcL (3.82-4.97); Red Cell Distribution Width 13.6 % (11.5-14.5)
[2018-04-20] MEDS ORDERED: Levothyroxine Sodium 100 MCG VIAL IVP SCH (06:30)
[2018-04-20 06:35] LABS: Hemoglobin 10.1 g/dL (11.5-15.4)
[2018-04-20 06:40] LABS: BUN/Creatinine Ratio 23 (6-26); Blood Urea Nitrogen 19 mg/dL (8-23); Calcium 7.6 mg/dL (8.6-10.3); Carbon Dioxide 20 mEq/L (23-29); Chloride 112 mEq/L (98-107); Glucose 103 mg/dL (70-105); Magnesium 1.8 mg/dL (1.6-2.6); Osmolality,Calculated 289 (280-300); Potassium 3.2 mEq/L (3.5-5.1); Sodium 138 mEq/L (136-145); eGFR For African Americans > 60 (> 60); eGFR For Non-African Americans > 60 (> 60)
--- NOTE | 2018-04-20 06:43 | Internal Med Progress Note ---
<Eric Cevallos - Last Filed: 04/20/18 13:43> Date of Encounter: 04/20/18 Time of Encounter: 06:42 - Assessment and plan (1) Bowel obstruction Current Visit: Yes Status: Resolved Assessment and plan: Secondary to sigmoid colon mass. POD#2 s/p Torrez's procedure, sigmoid colectomy with end colostomy Surgery following Replete electrolytes, and control N/V with IV zofran. CXR reveals findings suggest congestive heart failure. IVF decreased to 75cc/ hr. Echo pending Oxycodone SL PRN pain. Continue IV protonix for GI prophylaxis Continue IV flagyl and IV cipro. Recheck labwork in AM. Clear liquid diet, advance diet once approved by surgeon PT/OT/SW consulted for discharge planning. Qualifiers: Intestinal obstruction type: unspecified Intestinal obstruction extent: partial Qualified Code(s): K56.600 - Partial intestinal obstruction, unspecified as to cause (2) Mass of colon Current Visit: Yes Status: Resolved Assessment and plan: Management as per above. Torrez's procedure, Sigmoid colectomy with end colostomy performed 04/18/18 CEA 1.4 Follow up on biopsy results. May need heme/onc consult based on biopsy results. (3) Atelectasis of both lungs Current Visit: Yes Status: Acute Assessment and plan: CXR reveals findings suggest congestive heart failure. IVF decreased to 75cc/ hr. Echo pending Encourage incentive spirometery when awake post-op. (4) Delirium Current Visit: Yes Status: Acute Assessment and plan: Patient was placed in soft restraints due to acute delirium and pulling out her IV and colostomy bag. Surgical dressing is intact. Sitter and daughter are at bedside. Keep patient awake during the day to avoid owning. Continue Haldol prn (5) Dementia Current Visit: Yes Status: Chronic Assessment and plan: Continue home meds Qualifiers: Dementia type: unspecified type Dementia behavioral disturbance: without behavioral disturbance Qualified Code(s): F03.90 - Unspecified dementia without behavioral disturbance (6) HTN (hypertension) Current Visit: Yes Status: Chronic Assessment and plan: Continue home medications when tolerating PO. Continue hydralazine 10 mg IV Q6H PRN systolic BP > 160 and/or diastolic BP > 100. Qualifiers: Hypertension type: essential hypertension Qualified Code(s): I10 - Essential (primary) hypertension (7) HLD (hyperlipidemia) Current Visit: Yes Status: Chronic Assessment and plan: Continue home medications when tolerating PO. Qualifiers: Hyperlipidemia type: mixed hyperlipidemia Qualified Code(s): E78.2 - Mixed hyperlipidemia (8) Hypothyroidism Current Visit: Yes Status: Acute Assessment and plan: Continue home levothyroxine. Qualifiers: Hypothyroidism type: unspecified Qualified Code(s): E03.9 - Hypothyroidism , unspecified (9) Obesity (BMI 30.0-34.9) Current Visit: No Status: Chronic Assessment and plan: Lifestyle modification (10) Protein-calorie malnutrition, moderate Current Visit: Yes Status: Acute Assessment and plan: Albumin 2.8 Decreased dust mixer strength, temporal wasting, loss of muscle mass Advance diet once approved by surgeon (11) Hypokalemia Current Visit: Yes Status: Acute Assessment and plan: Given KCl 40 mEq IV Recheck BMP in AM. (12) Hypomagnesemia Current Visit: Yes Status: Acute Assessment and plan: Supplemented Mag Continue to monitor (13) DVT prophylaxis Current Visit: Yes Status: Acute Assessment and plan: SQ heparin. - Time Spent With Patient Total time spent is greater than 50% in coordination of care (as documented) at patient's floor/unit and/or counseling patient: - Subjective Interval history: Patient seen and examined resting comfortably in bed on POD# 2 s/p Torrez's procedure, sigmoid colectomy with end colostomy. Patient was placed in soft restraints yesterday due to acute delirium and pulling out her IV and colostomy bag. Surgical dressing is intact. Sitter and daughter are at bedside. - Constitutional Vitals: Temp Pulse Resp BP Pulse Ox 99.0 F 133 18 103/71 97 04/20/18 03:01 04/20/18 03:01 04/20/18 03:01 04/20/18 03:01 04/20/18 03:01 General appearance: Present: A&O X 0, cooperative, no acute distress, obese. Absent: answers questions appropriately - Head Head exam: Present: atraumatic, normocephalic - Eye Eye exam: Present: PERRL, conjuntiva pink, sclera anicteric Pupils: Present: PERRL - ENT ENT exam: Present: mucous membranes dry, normal oropharynx - Neck Neck exam general surgery: Present: supple, trachea midline. Absent: lymphadenopathy - Respiratory Respiratory exam: Present: decreased breath sounds. Absent: accessory muscle use, CTAB, rales, rhonchi, wheezes - Cardiovascular Cardiovascular exam: Present: +S1, +S2, tachycardia. Absent: diastolic murmur, gallop, RRR, rubs, systolic murmur - GI/Abdominal GI/Abdominal exam: Present: hypoactive bowel sounds, soft, tenderness ( appropriate TTP, ostomy and dressing intact), no peritoneal signs. Absent: distended, normal bowel sounds - Additional comments: rios in place - Extremities Exam Extremities exam: Present: warm, radial pulses palpable and symmetrical. Absent : calf tenderness, cyanotic, pedal edema - Incison Incision: Present: clean and dry, intact - Neurological Exam Neurological exam: Present: altered, CN II-XII intact, no focal deficits. Absent: oriented X3, pronater drift, facial droop, speech deficit - Psychiatric Psychiatric exam: Present: agitated, normal mood - Skin Skin exam: Present: dry, intact, normal color, warm Internal Medicine: Result - Labs CBC & Chem 7: 04/20/18 05:43 04/20/18 05:43 Labs: Short CBC 04/20/18 Range/Units 05:43 WBC 13.4 H (4.3-11.1) K/mcL Hgb 10.1 L D (11.5-15.4) g/dL Hct 31.4 L (35.3-44.9) % Plt Count 249 (140-400) K/mcL BMP 04/20/18 05:43 Sodium 138 Potassium 3.2 L Chloride 112 H Carbon Dioxide 20 L BUN 19 Creatinine 0.82 Glucose 103 Calcium 7.6 L - ABG Interpretation ABG results: PT/INR, D-dimer PT 14.2 Seconds (9.4-12.1) H 04/19/18 04:19 - Pulse Oximetry Interpretation Digit-Finger Pulse Oximetry Readin (2L O2 via NC) - Impressions Impressions Chest X-Ray 04/20/18 11:54 IMPRESSION: Findings suggest congestive heart failure D/ / Jules Winter MD / Jules Winter MD Interpreting Provider: Jules Winter MD - VTE Documentation of Mechanical Device: Intermittent pneumatic compression device Consult Discharge Plan - Plan Referrals: Albertina Zapien MD [Primary Care Provider] - <Emily Sparks - Last Filed: 04/20/18 14:43> Date of Encounter: 04/20/18 - Assessment and plan (1) Mass of colon Current Visit: Yes Status: Resolved (2) Bowel obstruction Current Visit: Yes Status: Resolved Qualifiers: Intestinal obstruction type: unspecified Intestinal obstruction extent: partial Qualified Code(s): K56.600 - Partial intestinal obstruction, unspecified as to cause (3) Atelectasis of both lungs Current Visit: Yes Status: Acute (4) Hypokalemia Current Visit: Yes Status: Acute (5) HTN (hypertension) Current Visit: Yes Status: Chronic Qualifiers: Hypertension type: essential hypertension Qualified Code(s): I10 - Essential (primary) hypertension (6) HLD (hyperlipidemia) Current Visit: Yes Status: Chronic Qualifiers: Hyperlipidemia type: mixed hyperlipidemia Qualified Code(s): E78.2 - Mixed hyperlipidemia (7) Hypothyroidism Current Visit: Yes Status: Acute Qualifiers: Hypothyroidism type: unspecified Qualified Code(s): E03.9 - Hypothyroidism , unspecified (8) DVT prophylaxis Current Visit: Yes Status: Acute (9) Hypomagnesemia Current Visit: Yes Status: Acute (10) Dementia Current Visit: Yes Status: Chronic Qualifiers: Dementia type: unspecified type Dementia behavioral disturbance: without behavioral disturbance Qualified Code(s): F03.90 - Unspecified dementia without behavioral disturbance (11) Obesity (BMI 30.0-34.9) Current Visit: No Status: Chronic (12) Protein-calorie malnutrition, moderate Current Visit: Yes Status: Acute (13) Delirium Current Visit: Yes Status: Acute - Time Spent With Patient Total time spent is greater than 50% in coordination of care (as documented) at patient's floor/unit and/or counseling patient: - Constitutional Vitals: Temp Pulse Resp BP Pulse Ox 97.9 F 136 17 124/70 96 04/20/18 09:35 04/20/18 09:35 04/20/18 09:35 04/20/18 09:35 04/20/18 09:35 Internal Medicine: Result - Labs CBC & Chem 7: 04/20/18 05:43 04/20/18 05:43 Labs: Short CBC 04/20/18 Range/Units 05:43 WBC 13.4 H (4.3-11.1) K/mcL Hgb 10.1 L D (11.5-15.4) g/dL Hct 31.4 L (35.3-44.9) % Plt Count 249 (140-400) K/mcL BMP 04/20/18 05:43 Sodium 138 Potassium 3.2 L Chloride 112 H Carbon Dioxide 20 L BUN 19 Creatinine 0.82 Glucose 103 Calcium 7.6 L - ABG Interpretation ABG results: PT/INR, D-dimer PT 14.2 Seconds (9.4-12.1) H 04/19/18 04:19 - Impressions Impressions Chest X-Ray 04/20/18 11:54 IMPRESSION: Findings suggest congestive heart failure D/ / Jules Winter MD / Jules Winter MD Interpreting Provider: Jules Winter MD - Attending Attestation I examined this patient and my medical decision-making was reviewed with the Resident Physician Dr. Cevallos. I agree with the documented findings, disposition and treatment plan as described except to the extent set forth below. Ms. Stinson is a 78 year old female who presented to [facility] ED with a few day history of nausea, vomiting, diarrhea, poor PO intake, and generalized weakness. Family denies hematochezia or melena. Family denies hematemesis. At [facility] ED, she was found to have WBC of 13.8 and potassium of 3.1. CXR showed bibasilar atelectasis. CT abdomen/pelvis showed suspected infiltrating mass of sigmoid colon and mild dilatation of colon proximal to mass suggesting obstruction. Pt was admitted here and went to OR for perform proctosigmoidectomy with diverting colostomy on 04/18/18. Pt became very agitated and delirious y/d. Now pt is resting comfortably. Still confused and getting agitated at times. Noticed stool in colostomy bag. Gen: A,A, disoriented Chest: DBS b/l Heart: S1S2+ Sinus tachycardia Abd; Colostomy bag +, Dressing on over incisions a/p 1. Acute bowel obstruction due to sigmoid colon mass 2. s/p Torrez's procedure. Sigmoid colectomy with end colostomy cont post op care as per Surgery IV hydration clear liquid diet empirical abx cipro and flagyl close monitoring of electrolytes 3. Acute delirium due to dementia + post op cont Haldol PRN soft restrain for now 4. Acute hypoxic resp failure CXR showed atelectasis repeat CXR today cont o2 cont Duoneb Gentle hydration
[2018-04-20] MEDS ORDERED: Potassium Chloride 40 MEQ, Lidocaine 1% 2 ML in D5% in Water 500 ML IVPB ONE (06:44)
[2018-04-20] MEDS ORDERED: Potassium Chloride Elixir 20 MEQ/15 ML UDC PO ONE (07:58)
--- NOTE | 2018-04-20 07:59 | General Surgery Progress Note ---
<Eddie Aponte R - Last Filed: 04/20/18 07:50> Date of Encounter: 04/20/18 Time of Encounter: 07:50 - Assessment and Plan (1) Bowel obstruction Current Visit: Yes Status: Resolved POD #3 s/p Torrez's procedure - sigmoidectomy with diverting colostomy. Stool present in colostomy this morning - final pathology pending: appearance not entirely convincing for colon cancer - DDX: colon cancer, severe scar from perforated diverticulum CT shows mass in the sigmoid colon and bowel obstruction with dilated bowel loops Labs: leukocytosis (13.4 today), mild anemia, mild hypokalemia, BUN and Cr normal PLAN: May advance to clears today while upright IV fluids if able to maintain access Continue antibiotics Pain and nausea control Replace potassium Consult to jermaine for assistance with agitation, confusion, and delirium - continue sitter Qualifiers: Intestinal obstruction type: unspecified Intestinal obstruction extent: partial Qualified Code(s): K56.600 - Partial intestinal obstruction, unspecified as to cause (2) Mass of colon Current Visit: Yes Status: Resolved Plan as above Pathology pending Subjective Narrative: Pt still confused and limited responses. Does not appear to be in distress on exam. Objective Vital Signs - Last 8 Hours Temp Pulse Resp BP Pulse Ox 04/20/18 03:01 99.0 F 133 18 103/71 97 Intake and Output 04/19/18 04/19/18 04/20/18 15:59 23:59 07:59 Intake Total 1350 / 1350 650 / 650 1500 / 1500 Output Total 450 / 450 975 / 975 Balance 1350 / 1350 200 / 200 525 / 525 Intake: IV Fluids 1350 / 1350 650 / 650 1500 / 1500 0.9 % Sodium Chloride 1,000 ML 950 / 950 250 / 250 1000 / 1000 @ 125 mls/hr IVC .Q8H [facility] Rx#: [id number] Ofirmev 1,000 mg/100 ml 1,000 100 / 100 100 / 100 200 / 200 mg In 100 ml @ 400 mls/hr IVPB Q6HR [facility] Rx#:[id number] Cipro Premix 400 MG/200 ML 400 200 / 200 200 / 200 200 / 200 mg In 200 ml @ 200 mls/hr IVPB Q12H [facility] Rx#:[id number] Flagyl Premix 500 MG/100 ML 500 100 / 100 100 / 100 100 / 100 mg In 100 ml @ 100 mls/hr IVPB Q8HR [facility] Rx#:[id number] Oral 0 / 0 Output: Stool 450 / 450 500 / 500 Catheter 475 / 475 Other: Meal NPO Percent of Meal Consumed 0% Stool Consistency loose liquid Stool Color Brown Weight 80.743 kg Blood Glucose* 176 111 93 Patient Weight 04/20/18 23:59 Weight 80.743 kg - General physical appearance no distress - Cardiovascular Cardiovascular exam: Present: tachycardia, regular rhythm - Abdomen Abdomen: Present: bowel sounds present, soft, tender (appropriately) - Incision Incision: Present: clean and dry, intact, open (ostomy pink with stool in colostomy bag) - Integumentary no rash - Neurologic CN 2-12 grossly intact - Labs 04/20/18 05:43 04/20/18 05:43 Diabetes panel 04/20/18 Range/Units 05:43 Sodium 138 (136-145) mEq/L Potassium 3.2 L (3.5-5.1) mEq/L Chloride 112 H (98-107) mEq/L Carbon Dioxide 20 L (23-29) mEq/L BUN 19 (8-23) mg/dL Creatinine 0.82 (0.60-1.20) mg/dL Glucose 103 (70-105) mg/dL Calcium 7.6 L (8.6-10.3) mg/dL Calcium panel 04/20/18 Range/Units 05:43 Calcium 7.6 L (8.6-10.3) mg/dL Pituitary panel 04/20/18 Range/Units 05:43 Sodium 138 (136-145) mEq/L Potassium 3.2 L (3.5-5.1) mEq/L Chloride 112 H (98-107) mEq/L Carbon Dioxide 20 L (23-29) mEq/L BUN 19 (8-23) mg/dL Creatinine 0.82 (0.60-1.20) mg/dL Glucose 103 (70-105) mg/dL Calcium 7.6 L (8.6-10.3) mg/dL Adrenal panel 04/20/18 Range/Units 05:43 Sodium 138 (136-145) mEq/L Potassium 3.2 L (3.5-5.1) mEq/L Chloride 112 H (98-107) mEq/L Carbon Dioxide 20 L (23-29) mEq/L BUN 19 (8-23) mg/dL Creatinine 0.82 (0.60-1.20) mg/dL Glucose 103 (70-105) mg/dL Calcium 7.6 L (8.6-10.3) mg/dL - VTE Documentation of Mechanical Device: Intermittent pneumatic compression device Consult Discharge Plan - Plan Additional Instructions: will continue to follow loosely please see recommendations above Referrals: Albertina Zapien MD [Primary Care Provider] - <Virgil Hernandez - Last Filed: 04/21/18 09:41> Date of Encounter: 04/20/18 Objective Vital Signs - Last 8 Hours Temp Pulse Resp BP Pulse Ox 04/21/18 08:04 98.4 F 108 19 119/73 97 04/21/18 05:29 98.9 F 105 20 133/86 98 Intake and Output 04/20/18 04/21/18 04/21/18 23:59 07:59 15:59 Intake Total 400 / 400 300 / 300 1000 / 1000 Output Total 695 / 695 150 / 150 Balance -295 / -295 150 / 150 1000 / 1000 Intake: IV Fluids 400 / 400 300 / 300 1000 / 1000 0.9 % Sodium Chloride 1,000 ML 1000 / 1000 @ 75 mls/hr IVC .[id number] [facility] Rx #:[id number] Ofirmev 1,000 mg/100 ml 1,000 100 / 100 200 / 200 mg In 100 ml @ 400 mls/hr IVPB Q6HR [facility] Rx#:[id number] Cipro Premix 400 MG/200 ML 400 200 / 200 mg In 200 ml @ 200 mls/hr IVPB Q12H [facility] Rx#:[id number] Flagyl Premix 500 MG/100 ML 500 100 / 100 100 / 100 mg In 100 ml @ 100 mls/hr IVPB Q8HR [facility] Rx#:[id number] Output: Stool 175 / 175 150 / 150 Catheter 520 / 520 Other: Stool Consistency loose Stool Color Green Black # Urine Diapers 1 Weight 87.1 kg Blood Glucose* 104 107 Patient Weight 04/21/18 23:59 Weight 87.1 kg - Labs 04/21/18 04:19 04/21/18 04:19 Diabetes panel 04/21/18 Range/Units 04:19 Sodium 139 (136-145) mEq/L Potassium 3.2 L (3.5-5.1) mEq/L Chloride 114 H (98-107) mEq/L Carbon Dioxide 21 L (23-29) mEq/L BUN 17 (8-23) mg/dL Creatinine 0.80 (0.60-1.20) mg/dL Glucose 121 H (70-105) mg/dL Calcium 7.7 L (8.6-10.3) mg/dL Calcium panel 04/21/18 Range/Units 04:19 Calcium 7.7 L (8.6-10.3) mg/dL Pituitary panel 04/21/18 Range/Units 04:19 Sodium 139 (136-145) mEq/L Potassium 3.2 L (3.5-5.1) mEq/L Chloride 114 H (98-107) mEq/L Carbon Dioxide 21 L (23-29) mEq/L BUN 17 (8-23) mg/dL Creatinine 0.80 (0.60-1.20) mg/dL Glucose 121 H (70-105) mg/dL Calcium 7.7 L (8.6-10.3) mg/dL Adrenal panel 04/21/18 Range/Units 04:19 Sodium 139 (136-145) mEq/L Potassium 3.2 L (3.5-5.1) mEq/L Chloride 114 H (98-107) mEq/L Carbon Dioxide 21 L (23-29) mEq/L BUN 17 (8-23) mg/dL Creatinine 0.80 (0.60-1.20) mg/dL Glucose 121 H (70-105) mg/dL Calcium 7.7 L (8.6-10.3) mg/dL - Attending Attestation I examined this patient and my medical decision-making was reviewed with the Resident Physician. I agree with the documented findings, disposition and treatment plan as described except to the extent set forth below. The patient was seen and evaluated on morning rounds with resident. She continues to be disoriented and unresponsive secondary to profound dementia. She has a 24-hour sitter at this point. We will try to start some clear liquid diet she is having good ostomy function and bowel movement Virgil Hernandez MD FACS
[2018-04-20] MEDS: Pantoprazole 40 MG VIAL IVP SCH (08:48)
[2018-04-20] MEDS: Haloperidol Lactate 5 MG/ML VIAL IVP PRN ×3 (08:49→22:06)
--- NOTE | 2018-04-20 12:34 | Electrocardiograph Report ---
[address] [place] [address] Test Date: 2018-04-19 Pat Name: Preeti Stinson Department: 115 Room: 3A13 Gender: F [employer]: TLS : 1940 Requested By: Maria R Bang Order Number: [id number] Reading MD: Guzman Hall Measurements Intervals [place] Rate: 112 P: 48 CT: 120 QRS: -1 QRSD: 100 T: -10 QT: 324 QTc: 390 Interpretive Statements SINUS TACHYCARDIA POSSIBLE INFERIOR MYOCARDIAL INFARCTION, PROBABLY OLD WITH POSTERIOR EXTENSION Electronically Signed On 04-20-2018 12:32:36 EDT by Guzman Hall
[2018-04-20] MEDS ORDERED: Perflutren Lipid Microsphere 1.3 ML in 0.9 % Sodium Chloride 8.7 ML IVP ONE (19:19)
[2018-04-20] MEDS ORDERED: Perflutren Lipid Microsphere 2 ML VIAL ONE (19:37)
[2018-04-20] MEDS: Ondansetron 4 MG/2 ML VIAL IVP PRN (19:46)
--- NOTE | 2018-04-20 20:04 | Consult Note ---
Date of Encounter: 04/20/18 Time of Encounter: 19:45 History of Present Illness Patient: new to practice Requesting Physician: Best Stevens Reason for consult: exacerbation of neurocogntion History of present illness: Ms. Stinson is a 78 year old female patient was placed in restraints due to aggressiveness towards staff and pulling IVs out and her colostomy bag off. During the night patient was checked on multiple occasions to assess if she was able to have her order for soft restraints removed but per nurse the couple of times they had taken her restraints off that night in attempts she immediately was pulling at her IV. Restraint sights were checked with no signs of skin break down or ischemia. Pulses were present bilaterally. Patient continued to be confused and mumble words but was not responding to any of my questions. Soft restraints were continued for patient's safety and to complete treatment. Pt is a 78 yo, , female, who presents for exacerbation of neurocogniton , currently agitatied and aggressive. Pt is currently resting comfortably. Pt was mininamally responsive and unable to participate in the interview process. will continue to follow pt loosely. Pt was smiling and pleasent at time of interview. MSE: Alert and Oriented x0 Appearance: dressed in hospital [facility] Behavior: Polite, pleasant Speech: unable to assess Mood: unable to assess Affect: pleasant Thought content: pleasant Psychosis: none noted, currently does not appear to be responding to internal stimuli. Thought Process: significant reduction in neurocognition however unable to assess at this time. Judgment: Poor. Insight: Poor . 1.Interval hx 2.Continue current medications 3.Review current labs 4. Supportive therapy was provided 5. Will continue to follow pt loosely 6. Recomment utilization of PRN medications to keep pt calm and in compliance with treatment. 7. Concern for asperation with sedation, pt vomited while present with interview CC: Best Stevens Past Med Surg Social Fam HX - Past Medical History Medical history: hyperlipidemia, hypertension, thyroid disease, venous stasis - Past Psychiatric History Psychiatric history: Reports: other (unable to assess at this time) - Past Surgical History Surgical History: no surgical history - Social History Smoking Status: Never smoker Smokeless Tobacco Status: No Alcohol use: none Drug use: none Medications & Allergies Aspirin [Lo-Dose Aspirin EC] 81 mg PO DAILY 04/18/18 [History] Citalopram [CeleXA] 30 mg PO DAILY 04/18/18 [History] Donepezil HCl [Aricept] 10 mg PO HS 04/18/18 [History] Levothyroxine [Synthroid] 100 mcg PO DAILY 04/18/18 [History] Lisinopril-HCTZ 10-12.5 [Prinzide 10-12.5] 1 each PO DAILY 04/18/18 [History] Potassium Chloride [K-Tab ER] 20 meq PO DAILY 04/18/18 [History] Simvastatin [Zocor] 20 mg PO DAILY 04/18/18 [History] 3 Allergy/AdvReac Type Severity Reaction Status Date / Time No Known Allergies Allergy Verified 04/20/17 08:49 Review of Systems Neurological: Reports: confusion, memory loss Psychiatric: Reports: other (unable to assess at this time) Psychiatry Exam - Constitutional Vitals: Temp Pulse Resp BP Pulse Ox 97.9 F 127 17 119/68 96 04/20/18 14:40 04/20/18 14:40 04/20/18 14:40 04/20/18 14:40 04/20/18 14:40 General appearance: age & developmentally appropriate - Psychiatric Patient Orientation: No Person, No Time, No Place, No Circumstance, Yes Other ( not oriented) Level of alertness: Sedated Behavior: calm, cooperative, withdrawn Psychomotor activity: Abnormal movements Eye Contact: Minimal Contact Mood Description: Other (confused) Affect description: inappropriate to situation Speech Volume: No speech Speech pattern: limited Language & Vocabulary: other (limited) Thought Process: Slowed Thinking Thought Content: Yes Poverty of Content Perceptual Disturbances: Yes Derealization Attention Span Ability: Unable to Sustain Attention Memory Description: Remote Impaired Patient Reliability: Not Reliable Historian Fund of knowledge: Yes below average Intelligence Estimate: Below Average Judgment: Poor Insight: None Results - Labs Labs: Laboratory Last Values WBC 13.4 K/mcL (4.3-11.1) H 04/20/18 05:43 RBC 3.62 M/mcL (3.82-4.97) L 04/20/18 05:43 Hgb 10.1 g/dL (11.5-15.4) L D 04/20/18 05:43 Hct 31.4 % (35.3-44.9) L 04/20/18 05:43 MCV 86.7 fL (83.0-100.0) 04/20/18 05:43 MCH 27.9 pg (28.0-33.3) L 04/20/18 05:43 MCHC 32.2 g/dL (31.6-35.5) 04/20/18 05:43 RDW 13.6 % (11.5-14.5) 04/20/18 05:43 Plt Count 249 K/mcL (140-400) 04/20/18 05:43 MPV 10.8 fL (9.4-12.4) 04/20/18 05:43 Immature Gran % 0.2 % (0-4) 04/19/18 04:19 Seg Neutrophils % 90.6 % 04/19/18 04:19 Lymphocytes % 4.4 % 04/19/18 04:19 Monocytes % 4.7 % 04/19/18 04:19 Eosinophils % 0.0 % 04/19/18 04:19 Basophils % 0.1 % 04/19/18 04:19 Neutrophils # 8.2 K/mcL (1.6-8.9) 04/19/18 04:19 Lymphocytes # 0.4 K/mcL (0.6-4.6) L 04/19/18 04:19 Monocytes # 0.4 K/mcL (0.0-1.3) 04/19/18 04:19 Eosinophils # 0.0 K/mcL (0.0-0.6) 04/19/18 04:19 Basophils # 0.0 K/mcL (0.0-0.2) 04/19/18 04:19 Platelet Estimate Normal (Normal) 04/19/18 04:19 Immature Plt Fraction 2.8 % (1.1-6.1) 04/20/18 05:43 PT 14.2 Seconds (9.4-12.1) H 04/19/18 04:19 INR 1.3 04/19/18 04:19 APTT 27.2 Seconds (26.0-36.0) 04/19/18 04:19 Sodium 138 mEq/L (136-145) 04/20/18 05:43 Potassium 3.2 mEq/L (3.5-5.1) L 04/20/18 05:43 Chloride 112 mEq/L (98-107) H 04/20/18 05:43 Carbon Dioxide 20 mEq/L (23-29) L 04/20/18 05:43 BUN 19 mg/dL (8-23) 04/20/18 05:43 Creatinine 0.82 mg/dL (0.60-1.20) 04/20/18 05:43 Est GFR ( Amer) > 60 (> 60) 04/20/18 05:43 Est GFR (Non-Af Amer) > 60 (> 60) 04/20/18 05:43 BUN/Creatinine Ratio 23 (6-26) 04/20/18 05:43 Glucose 103 mg/dL (70-105) 04/20/18 05:43 POC Glucose 104 mg/dL (70-99) H 04/20/18 18:35 Calculated Osmolality 289 (280-300) 04/20/18 05:43 Calcium 7.6 mg/dL (8.6-10.3) L 04/20/18 05:43 Phosphorus 3.2 mg/dL (2.7-4.5) 04/19/18 04:19 Magnesium 1.8 mg/dL (1.6-2.6) 04/20/18 05:43 Total Bilirubin 0.8 mg/dL (0.3-1.0) 04/19/18 04:19 AST 21 Units/L (13-39) 04/19/18 04:19 ALT 20 Units/L (7-52) 04/19/18 04:19 Alkaline Phosphatase 80 Units/L (34-104) 04/19/18 04:19 Serum Total Protein 5.5 g/dL (6.4-8.9) L 04/19/18 04:19 Albumin 2.8 g/dL (3.5-5.7) L 04/19/18 04:19 Globulin 2.7 g/dL (2.4-3.5) 04/19/18 04:19 Albumin/Globulin Ratio 1.0 (1.1-2.2) L 04/19/18 04:19 Carcinoembryonic Ag 1.4 ng/mL (Less than 5.0) 04/18/18 15:56 - Impressions Impressions Chest X-Ray 04/20/18 11:54 IMPRESSION: Findings suggest congestive heart failure D/ / Jules Winter MD / Jules Winter MD Interpreting Provider: Jules Winter MD Consult Discharge Plan - Plan Referrals: Albertina Zapien MD [Primary Care Provider] -
--- NOTE | 2018-04-20 20:12 | Consult Note ---
Date of Encounter: 04/20/18 Assessment & Recommendation (1) Delirium Current visit: Yes Status: Acute (2) Dementia Current visit: Yes Status: Chronic Qualifiers: Dementia type: unspecified type Dementia behavioral disturbance: without behavioral disturbance Qualified Code(s): F03.90 - Unspecified dementia without behavioral disturbance History of Present Illness Requesting Physician: Best Stevens History of present illness: Ms. Stinson is a 78 year old female CC: Best Stevens Past Med Surg Social Fam HX - Past Medical History Medical history: hyperlipidemia, hypertension, thyroid disease, venous stasis - Past Surgical History Surgical History: no surgical history - Social History Smoking Status: Never smoker Smokeless Tobacco Status: No Alcohol use: none Drug use: none Medications & Allergies Aspirin [Lo-Dose Aspirin EC] 81 mg PO DAILY 04/18/18 [History] Citalopram [CeleXA] 30 mg PO DAILY 04/18/18 [History] Donepezil HCl [Aricept] 10 mg PO HS 04/18/18 [History] Levothyroxine [Synthroid] 100 mcg PO DAILY 04/18/18 [History] Lisinopril-HCTZ 10-12.5 [Prinzide 10-12.5] 1 each PO DAILY 04/18/18 [History] Potassium Chloride [K-Tab ER] 20 meq PO DAILY 04/18/18 [History] Simvastatin [Zocor] 20 mg PO DAILY 04/18/18 [History] 3 Allergy/AdvReac Type Severity Reaction Status Date / Time No Known Allergies Allergy Verified 04/20/17 08:49 Review of Systems Psychiatric: Reports: other (unable to assess at this time) Psychiatry Exam - Constitutional Vitals: Temp Pulse Resp BP Pulse Ox 97.9 F 127 17 119/68 96 04/20/18 14:40 04/20/18 14:40 04/20/18 14:40 04/20/18 14:40 04/20/18 14:40 Results - Labs Labs: Laboratory Last Values WBC 13.4 K/mcL (4.3-11.1) H 04/20/18 05:43 RBC 3.62 M/mcL (3.82-4.97) L 04/20/18 05:43 Hgb 10.1 g/dL (11.5-15.4) L D 04/20/18 05:43 Hct 31.4 % (35.3-44.9) L 04/20/18 05:43 MCV 86.7 fL (83.0-100.0) 04/20/18 05:43 MCH 27.9 pg (28.0-33.3) L 04/20/18 05:43 MCHC 32.2 g/dL (31.6-35.5) 04/20/18 05:43 RDW 13.6 % (11.5-14.5) 04/20/18 05:43 Plt Count 249 K/mcL (140-400) 04/20/18 05:43 MPV 10.8 fL (9.4-12.4) 04/20/18 05:43 Immature Gran % 0.2 % (0-4) 04/19/18 04:19 Seg Neutrophils % 90.6 % 04/19/18 04:19 Lymphocytes % 4.4 % 04/19/18 04:19 Monocytes % 4.7 % 04/19/18 04:19 Eosinophils % 0.0 % 04/19/18 04:19 Basophils % 0.1 % 04/19/18 04:19 Neutrophils # 8.2 K/mcL (1.6-8.9) 04/19/18 04:19 Lymphocytes # 0.4 K/mcL (0.6-4.6) L 04/19/18 04:19 Monocytes # 0.4 K/mcL (0.0-1.3) 04/19/18 04:19 Eosinophils # 0.0 K/mcL (0.0-0.6) 04/19/18 04:19 Basophils # 0.0 K/mcL (0.0-0.2) 04/19/18 04:19 Platelet Estimate Normal (Normal) 04/19/18 04:19 Immature Plt Fraction 2.8 % (1.1-6.1) 04/20/18 05:43 PT 14.2 Seconds (9.4-12.1) H 04/19/18 04:19 INR 1.3 04/19/18 04:19 APTT 27.2 Seconds (26.0-36.0) 04/19/18 04:19 Sodium 138 mEq/L (136-145) 04/20/18 05:43 Potassium 3.2 mEq/L (3.5-5.1) L 04/20/18 05:43 Chloride 112 mEq/L (98-107) H 04/20/18 05:43 Carbon Dioxide 20 mEq/L (23-29) L 04/20/18 05:43 BUN 19 mg/dL (8-23) 04/20/18 05:43 Creatinine 0.82 mg/dL (0.60-1.20) 04/20/18 05:43 Est GFR ( Amer) > 60 (> 60) 04/20/18 05:43 Est GFR (Non-Af Amer) > 60 (> 60) 04/20/18 05:43 BUN/Creatinine Ratio 23 (6-26) 04/20/18 05:43 Glucose 103 mg/dL (70-105) 04/20/18 05:43 POC Glucose 104 mg/dL (70-99) H 04/20/18 18:35 Calculated Osmolality 289 (280-300) 04/20/18 05:43 Calcium 7.6 mg/dL (8.6-10.3) L 04/20/18 05:43 Phosphorus 3.2 mg/dL (2.7-4.5) 04/19/18 04:19 Magnesium 1.8 mg/dL (1.6-2.6) 04/20/18 05:43 Total Bilirubin 0.8 mg/dL (0.3-1.0) 04/19/18 04:19 AST 21 Units/L (13-39) 04/19/18 04:19 ALT 20 Units/L (7-52) 04/19/18 04:19 Alkaline Phosphatase 80 Units/L (34-104) 04/19/18 04:19 Serum Total Protein 5.5 g/dL (6.4-8.9) L 04/19/18 04:19 Albumin 2.8 g/dL (3.5-5.7) L 04/19/18 04:19 Globulin 2.7 g/dL (2.4-3.5) 04/19/18 04:19 Albumin/Globulin Ratio 1.0 (1.1-2.2) L 04/19/18 04:19 Carcinoembryonic Ag 1.4 ng/mL (Less than 5.0) 04/18/18 15:56 - Impressions Impressions Chest X-Ray 04/20/18 11:54 IMPRESSION: Findings suggest congestive heart failure D/ / Jules Winter MD / Jules Winter MD Interpreting Provider: Jules Winter MD Consult Discharge Plan - Plan Additional Instructions: will continue to follow loosely please see recommendations above Referrals: Albertina Zapien MD [Primary Care Provider] -
[2018-04-21] MEDS: Acetaminophen IV 1,000 MG/100 ML INFUS..BTL IVPB SCH ×3 (00:13→13:04)
[2018-04-21] MEDS: MetroNIDAZOLE 500 MG/100 ML 500 MG/100 ML BAG IVPB SCH ×4 (00:19→23:33)
[2018-04-21 04:45] LABS: Basophils % 0.1 %; Hematocrit 30.3 % (35.3-44.9); Hemoglobin 9.8 g/dL (11.5-15.4); Immature Granulocytes % 0.9 % (0-4); Lymphocytes # 0.6 K/mcL (0.6-4.6); Lymphocytes % 4.2 %; Mean Corpuscular HGB Conc 32.3 g/dL (31.6-35.5); Mean Corpuscular Hemoglobin 27.8 pg (28.0-33.3); Mean Corpuscular Volume 86.1 fL (83.0-100.0); Mean Platelet Volume 10.6 fL (9.4-12.4); Monocytes # 0.5 K/mcL (0.0-1.3); Monocytes % 3.4 %; Neutrophils # 13.7 K/mcL (1.6-8.9); Platelet Count 266 K/mcL (140-400); Red Blood Count 3.52 M/mcL (3.82-4.97); Red Cell Distribution Width 13.8 % (11.5-14.5); Segmented Neutrophils % 91.4 %
[2018-04-21 04:55] LABS: BUN/Creatinine Ratio 21 (6-26); Blood Urea Nitrogen 17 mg/dL (8-23); Calcium 7.7 mg/dL (8.6-10.3); Carbon Dioxide 21 mEq/L (23-29); Chloride 114 mEq/L (98-107); Glucose 121 mg/dL (70-105); Osmolality,Calculated 291 (280-300); Potassium 3.2 mEq/L (3.5-5.1); Sodium 139 mEq/L (136-145); eGFR For African Americans > 60 (> 60); eGFR For Non-African Americans > 60 (> 60)
[2018-04-21] MEDS: *HR* Heparin 5,000 UNIT/ML VIAL SQ SCH ×2 (05:42→17:58)
[2018-04-21] MEDS ORDERED: Potassium Chloride 40 MEQ, Lidocaine 1% 2 ML in D5% in Water 500 ML IVPB ONE (07:32)
--- NOTE | 2018-04-21 07:35 | Internal Med Progress Note ---
<Eric Cevallos - Last Filed: 04/21/18 11:46> Date of Encounter: 04/21/18 Time of Encounter: 07:33 - Assessment and plan (1) Mass of colon Current Visit: Yes Status: Resolved Assessment and plan: Management as per above. Torrez's procedure, Sigmoid colectomy with end colostomy performed 04/18/18 CEA 1.4 Follow up on biopsy results. May need heme/onc consult based on biopsy results. (2) Bowel obstruction Current Visit: Yes Status: Acute Assessment and plan: Secondary to sigmoid colon mass. POD#3 s/p Torrez's procedure, sigmoid colectomy with end colostomy Surgery following Replete electrolytes, and control N/V with IV zofran. Acute abdominal series shows no evidence of pneumoperitoneum. No evidence of bowel obstruction. IVF decreased to 75cc/hr. Echo pending Oxycodone SL PRN pain. Continue IV protonix for GI prophylaxis Continue IV flagyl and IV cipro. Recheck labwork in AM. NPO, advance diet once approved by surgeon PT/OT/SW consulted for discharge planning. Qualifiers: Intestinal obstruction type: unspecified Intestinal obstruction extent: partial Qualified Code(s): K56.600 - Partial intestinal obstruction, unspecified as to cause (3) Atelectasis of both lungs Current Visit: Yes Status: Acute Assessment and plan: Acute abdominal series shows small bilateral pleural effusions with mild interstitial pulmonary edema. Mild right lower lobe patchy airspace opacity that may represent atelectasis and/or aspiration. Continue Flagyl and Cipro IVF decreased to 75cc/hr. Echo pending Encourage incentive spirometery when awake post-op. Patient vomited yesterday and is now on supplemental O2. Continue aspiration precautions. NPO, Speech therapy consulted. (4) Delirium Current Visit: Yes Status: Acute Assessment and plan: Patient remained in soft restraints overnight due to acute delirium and pulling out her IV and colostomy bag. Surgical dressing is intact. Sitter is at bedside. Keep patient awake during the day to avoid ing. Continue Haldol prn A&Ox1. Will trial restraint vacation today. (5) Dementia Current Visit: Yes Status: Chronic Assessment and plan: Psych following loosly. Continue home meds Qualifiers: Dementia type: unspecified type Dementia behavioral disturbance: without behavioral disturbance Qualified Code(s): F03.90 - Unspecified dementia without behavioral disturbance (6) HTN (hypertension) Current Visit: Yes Status: Chronic Assessment and plan: Continue home medications when tolerating PO. Continue hydralazine 10 mg IV Q6H PRN systolic BP > 160 and/or diastolic BP > 100. Qualifiers: Hypertension type: essential hypertension Qualified Code(s): I10 - Essential (primary) hypertension (7) HLD (hyperlipidemia) Current Visit: Yes Status: Chronic Assessment and plan: Continue home medications when tolerating PO. Qualifiers: Hyperlipidemia type: mixed hyperlipidemia Qualified Code(s): E78.2 - Mixed hyperlipidemia (8) Hypothyroidism Current Visit: Yes Status: Acute Assessment and plan: Continue home levothyroxine. Qualifiers: Hypothyroidism type: unspecified Qualified Code(s): E03.9 - Hypothyroidism , unspecified (9) Hypokalemia Current Visit: Yes Status: Acute Assessment and plan: Given KCl 40 mEq IV Recheck BMP in AM. (10) Hypomagnesemia Current Visit: Yes Status: Resolved Assessment and plan: Supplemented Mag Continue to monitor (11) Obesity (BMI 30.0-34.9) Current Visit: No Status: Chronic Assessment and plan: Lifestyle modification (12) Protein-calorie malnutrition, moderate Current Visit: Yes Status: Acute Assessment and plan: Albumin 2.8 Decreased performance improvement consultant strength, temporal wasting, loss of muscle mass Advance diet once approved by surgeon (13) DVT prophylaxis Current Visit: Yes Status: Acute Assessment and plan: SQ heparin. - Time Spent With Patient Total time spent is greater than 50% in coordination of care (as documented) at patient's floor/unit and/or counseling patient: - Subjective Interval history: Patient seen and examined resting comfortably in bed on POD# 3 s/p Torrez's procedure, sigmoid colectomy with end colostomy. Patient remained in soft restraints overnight due to delirium. Restraints were removed this AM. Surgical dressing is intact. Sitter and daughter are at bedside. Patient vomited yesterday and is now on supplemental O2. Continue aspiration precautions. - Constitutional Vitals: Temp Pulse Resp BP Pulse Ox 98.9 F 105 20 133/86 98 04/21/18 05:29 04/21/18 05:29 04/21/18 05:29 04/21/18 05:29 04/21/18 05:29 General appearance: Present: A&O X 1, no acute distress, obese. Absent: answers questions appropriately - Head Head exam: Present: atraumatic, normocephalic - Eye Eye exam: Present: PERRL, conjuntiva pink, sclera anicteric Pupils: Present: PERRL - ENT ENT exam: Present: mucous membranes dry, normal oropharynx - Neck Neck exam general surgery: Present: supple, trachea midline. Absent: lymphadenopathy - Respiratory Respiratory exam: Present: decreased breath sounds. Absent: accessory muscle use, CTAB, rales, rhonchi, wheezes - Cardiovascular Cardiovascular exam: Present: RRR, +S1, +S2. Absent: diastolic murmur, gallop, rubs, systolic murmur - GI/Abdominal GI/Abdominal exam: Present: normal bowel sounds, soft, tenderness (surgical dressing and ostomy in place), no peritoneal signs. Absent: distended - Extremities Exam Extremities exam: Present: warm, radial pulses palpable and symmetrical. Absent : calf tenderness, cyanotic, pedal edema - Neurological Exam Neurological exam: Present: CN II-XII intact, oriented X3, no focal deficits. Absent: pronater drift, facial droop, speech deficit - Psychiatric Psychiatric exam: Present: flat affect - Expanded Psychiatric Exam Focused psych exam: Present: restlessness - Skin Skin exam: Present: dry, intact (no skin break down), warm Internal Medicine: Result - Labs CBC & Chem 7: 04/21/18 04:19 04/21/18 04:19 Labs: Short CBC 04/21/18 Range/Units 04:19 WBC 14.9 H (4.3-11.1) K/mcL Hgb 9.8 L (11.5-15.4) g/dL Hct 30.3 L (35.3-44.9) % Plt Count 266 (140-400) K/mcL Neutrophils # 13.7 H (1.6-8.9) K/mcL BMP 04/21/18 04:19 Sodium 139 Potassium 3.2 L Chloride 114 H Carbon Dioxide 21 L BUN 17 Creatinine 0.80 Glucose 121 H Calcium 7.7 L - ABG Interpretation ABG results: PT/INR, D-dimer PT 14.2 Seconds (9.4-12.1) H 04/19/18 04:19 - Pulse Oximetry Interpretation Digit-Finger Pulse Oximetry Readin (On 3L O2) - Impressions Impressions Impressions Chest X-Ray 04/20/18 11:54 IMPRESSION: Findings suggest congestive heart failure D/ / Jules Winter MD / Jules Winter MD Interpreting Provider: Jules Winter MD Chest/Abdomen X-ray 04/21/18 07:35 IMPRESSION: Small bilateral pleural effusions with mild interstitial pulmonary edema. Mild right lower lobe patchy airspace opacity that may represent atelectasis and/or aspiration. No evidence of pneumoperitoneum. No evidence of bowel obstruction. D/ / Luis Peoples MD / Luis Peoples MD Interpreting Provider: Luis Peoples MD - VTE Documentation of Mechanical Device: Intermittent pneumatic compression device Consult Discharge Plan - Plan Additional Instructions: will continue to follow loosely please see recommendations above Referrals: Albertina Zapien MD [Primary Care Provider] - <BridgerJose Luisbobby - Last Filed: 04/21/18 13:55> Date of Encounter: 04/21/18 - Assessment and plan (1) Mass of colon Current Visit: Yes Status: Resolved (2) Bowel obstruction Current Visit: Yes Status: Acute Qualifiers: Intestinal obstruction type: unspecified Intestinal obstruction extent: partial Qualified Code(s): K56.600 - Partial intestinal obstruction, unspecified as to cause (3) Atelectasis of both lungs Current Visit: Yes Status: Acute (4) Hypokalemia Current Visit: Yes Status: Acute (5) HTN (hypertension) Current Visit: Yes Status: Chronic Qualifiers: Hypertension type: essential hypertension Qualified Code(s): I10 - Essential (primary) hypertension (6) HLD (hyperlipidemia) Current Visit: Yes Status: Chronic Qualifiers: Hyperlipidemia type: mixed hyperlipidemia Qualified Code(s): E78.2 - Mixed hyperlipidemia (7) Hypothyroidism Current Visit: Yes Status: Acute Qualifiers: Hypothyroidism type: unspecified Qualified Code(s): E03.9 - Hypothyroidism , unspecified (8) DVT prophylaxis Current Visit: Yes Status: Acute (9) Hypomagnesemia Current Visit: Yes Status: Resolved (10) Dementia Current Visit: Yes Status: Chronic Qualifiers: Dementia type: unspecified type Dementia behavioral disturbance: without behavioral disturbance Qualified Code(s): F03.90 - Unspecified dementia without behavioral disturbance (11) Obesity (BMI 30.0-34.9) Current Visit: No Status: Chronic (12) Protein-calorie malnutrition, moderate Current Visit: Yes Status: Acute (13) Delirium Current Visit: Yes Status: Acute - Time Spent With Patient Total time spent is greater than 50% in coordination of care (as documented) at patient's floor/unit and/or counseling patient: - Constitutional Vitals: Temp Pulse Resp BP Pulse Ox 98.9 F 91 19 112/63 94 04/21/18 12:00 04/21/18 12:00 04/21/18 12:00 04/21/18 12:00 04/21/18 12:00 Internal Medicine: Result - Labs CBC & Chem 7: 04/21/18 04:19 04/21/18 04:19 Labs: Short CBC 04/21/18 Range/Units 04:19 WBC 14.9 H (4.3-11.1) K/mcL Hgb 9.8 L (11.5-15.4) g/dL Hct 30.3 L (35.3-44.9) % Plt Count 266 (140-400) K/mcL Neutrophils # 13.7 H (1.6-8.9) K/mcL BMP 04/21/18 04:19 Sodium 139 Potassium 3.2 L Chloride 114 H Carbon Dioxide 21 L BUN 17 Creatinine 0.80 Glucose 121 H Calcium 7.7 L - ABG Interpretation ABG results: PT/INR, D-dimer PT 14.2 Seconds (9.4-12.1) H 04/19/18 04:19 - Impressions Impressions Echocardiogram 04/20/18 13:45 Impressions: Sinus tachycardia. LVEF 65%. Atypical septal motion. Mild left ventricular diastolic dysfunction. Indeterminate diastolic function. Normal right ventricular structure and function. Mild-moderate tricuspid regurgitation. Moderate pulmonary hypertension. Left Ventricular Wall Motion: Rest Echo Findings All wall segments showed normal motion. Findings: Study Quality * Technically challenging due to clinical status. ECG Findings * Sinus tachycardia. Left Ventricle * LVEF 65%. * Atypical septal motion. * Mild left ventricular diastolic dysfunction. * Indeterminate diastolic function. Right Ventricle * Normal right ventricular structure and function. Left Atrium * Moderately dilated left atrium. Right Atrium * Normal right atrial size. Mitral Valve * Moderate mitral annular calcification * No mitral stenosis. * No mitral regurgitation. Aortic Valve * No aortic regurgitation. * Aortic valve not well visualized. * No aortic stenosis. Tricuspid Valve * Tricuspid valve not well visualized. * Mild-moderate tricuspid regurgitation. * Estimated RA pressure is 8 mmHg. * Estimated RVSP is 53 mmHg. * Moderate pulmonary hypertension. Pulmonic Valve * Pulmonic valve is not well visualized. * No pulmonic stenosis. * No pulmonic regurgitation. Pulmonary Artery * Pulmonary artery not well visualized. Aorta * Not well visualized. Pericardium * There is no pericardial effusion present. Interatrial Septum * No evidence of PFO by color Doppler. IVC * The IVC is not dilated. * < 50% respiratory change. Chest/Abdomen X-ray 04/21/18 07:35 IMPRESSION: Small bilateral pleural effusions with mild interstitial pulmonary edema. Mild right lower lobe patchy airspace opacity that may represent atelectasis and/or aspiration. No evidence of pneumoperitoneum. No evidence of bowel obstruction. D/ / Luis Peoples MD / Luis Peoples MD Interpreting Provider: Luis Peoples MD - Attending Attestation I examined this patient and my medical decision-making was reviewed with the Resident Physician Dr. Cevallos. I agree with the documented findings, disposition and treatment plan as described except to the extent set forth below. Ms. Stinson is a 78 year old female who presented to [facility] ED with a few day history of nausea, vomiting, diarrhea, poor PO intake, and generalized weakness. Family denies hematochezia or melena. Family denies hematemesis. At [facility] ED, she was found to have WBC of 13.8 and potassium of 3.1. CXR showed bibasilar atelectasis. CT abdomen/pelvis showed suspected infiltrating mass of sigmoid colon and mild dilatation of colon proximal to mass suggesting obstruction. Pt was admitted here and went to OR for perform proctosigmoidectomy with diverting colostomy on 04/18/18. Pt became very agitated and delirious post op. Now pt is resting comfortably. Today she is more alert, awake and oriented to self. Noticed stool in colostomy bag. She did have few episodes of vomiting last night. Gen: A,A, disoriented Chest: DBS b/l Heart: S1S2+ Sinus tachycardia Abd; Colostomy bag +, Dressing on over incisions a/p 1. Acute bowel obstruction due to sigmoid colon mass 2. s/p Torrez's procedure. Sigmoid Colectomy with end colostomy cont post op care as per Surgery path report pending Reviewed abd x ray - no signs of obstruction resumed diet high risk for aspiration speech eval ordered cont empirical abx cipro and flagyl close monitoring of electrolytes 3. Acute delirium due to dementia + post op cont Haldol PRN soft restrain as needed for now 4. Acute hypoxic resp failure 5. ?? Aspiration PNA - Pt is high risk for aspiration CXR showed atelectasis / concerning for aspiration PNA cont o2 cont Duoneb d/c IVF Aspiration precautions on abx already Talked to the pt's daughter at bed side and explained to her about current care.
[2018-04-21] MEDS: Haloperidol Lactate 5 MG/ML VIAL IVP PRN ×2 (08:35→23:33)
[2018-04-21] MEDS: 0.9 % Sodium Chloride 1,000 ML IVC SCH (08:37)
--- NOTE | 2018-04-21 09:14 | General Surgery Progress Note ---
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 Sigmoid colectomy with end colostomy POD#3 as above. Pathology pending. CEA unremarkable Was on clear, concern for aspiration, NPO per primary team (who has also placed ST eval) her stoma is pink and moist, but flat. She has had approximately 100 ML's of then brown liquid output. Plan: May return to PO when safe to do so Continue ATBX; WBC increased 14.9 from 13.4; okay to change Cipro to Levaquin for broader coverage if necessary. AAS with patchy opacities which could be atelectasis vs aspiration Ostomy care: Will need bedside RN for new colostomy teaching as the wound care nurses unavailable at this time. Please place convex wafer with colostomy change Place abdominal binder loosely to protect colostomy given confusion. IVF (and electrolyte repletion) per primary team; may need PICC and TPN pending speech eval for aspiration supportive care and discomfort management PT/OT and SW following Qualifiers: Intestinal obstruction type: unspecified Intestinal obstruction extent: partial Qualified Code(s): K56.600 - Partial intestinal obstruction, unspecified as to cause (2) Mass of colon Current Visit: Yes Status: Resolved See assessment and plan above (3) Dementia Current Visit: Yes Status: Chronic psych following. Management per primary team. See A/P above Qualifiers: Dementia type: unspecified type Dementia behavioral disturbance: without behavioral disturbance Qualified Code(s): F03.90 - Unspecified dementia without behavioral disturbance (4) Obesity (BMI 30.0-34.9) Current Visit: No Status: Chronic See a/p above (5) Protein-calorie malnutrition, moderate Current Visit: Yes Status: Acute See a/p above Subjective Narrative: Unable to obtain subjective information's patient is obtunded. Sitter is at bedside. Family is at bedside and state confusion. Objective Vital Signs - Last 8 Hours Temp Pulse Resp BP Pulse Ox 04/21/18 08:04 98.4 F 108 19 119/73 97 04/21/18 05:29 98.9 F 105 20 133/86 98 04/21/18 01:30 99.7 F H 94 19 108/82 93 Intake and Output 04/20/18 04/21/18 04/21/18 23:59 07:59 15:59 Intake Total 400 / 400 300 / 300 1000 / 1000 Output Total 695 / 695 150 / 150 Balance -295 / -295 150 / 150 1000 / 1000 Intake: IV Fluids 400 / 400 300 / 300 1000 / 1000 0.9 % Sodium Chloride 1,000 ML 1000 / 1000 @ 75 mls/hr IVC .[id number] [facility] Rx #:[id number] Ofirmev 1,000 mg/100 ml 1,000 100 / 100 200 / 200 mg In 100 ml @ 400 mls/hr IVPB Q6HR [facility] Rx#:[id number] Cipro Premix 400 MG/200 ML 400 200 / 200 mg In 200 ml @ 200 mls/hr IVPB Q12H [facility] Rx#:[id number] Flagyl Premix 500 MG/100 ML 500 100 / 100 100 / 100 mg In 100 ml @ 100 mls/hr IVPB Q8HR [facility] Rx#:[id number] Output: Stool 175 / 175 150 / 150 Catheter 520 / 520 Other: Stool Consistency loose Stool Color Green Black # Urine Diapers 1 Weight 87.1 kg Blood Glucose* 104 107 Patient Weight 04/21/18 23:59 Weight 87.1 kg - General physical appearance no distress - ENT atraumatic, normocephalic, Other (bilious appearing vomitus noted on gown and chin) - Neck Neck exam: trachea midline - Respiratory other (Course and decreased) - Cardiovascular Cardiovascular exam: Present: RRR (distant heart tones) - Abdomen Abdomen: Present: bowel sounds present, soft, tender, wound (ostomy is flat, but with output and is pink/moist) Hernia: none - Incision Incision: Present: clean and dry, intact - Integumentary no rash - Neurologic confused - Musculoskeletal other - Psychiatric other (confused) - Labs 04/21/18 04:19 04/21/18 04:19 Diabetes panel 04/21/18 Range/Units 04:19 Sodium 139 (136-145) mEq/L Potassium 3.2 L (3.5-5.1) mEq/L Chloride 114 H (98-107) mEq/L Carbon Dioxide 21 L (23-29) mEq/L BUN 17 (8-23) mg/dL Creatinine 0.80 (0.60-1.20) mg/dL Glucose 121 H (70-105) mg/dL Calcium 7.7 L (8.6-10.3) mg/dL Calcium panel 04/21/18 Range/Units 04:19 Calcium 7.7 L (8.6-10.3) mg/dL Pituitary panel 04/21/18 Range/Units 04:19 Sodium 139 (136-145) mEq/L Potassium 3.2 L (3.5-5.1) mEq/L Chloride 114 H (98-107) mEq/L Carbon Dioxide 21 L (23-29) mEq/L BUN 17 (8-23) mg/dL Creatinine 0.80 (0.60-1.20) mg/dL Glucose 121 H (70-105) mg/dL Calcium 7.7 L (8.6-10.3) mg/dL Adrenal panel 04/21/18 Range/Units 04:19 Sodium 139 (136-145) mEq/L Potassium 3.2 L (3.5-5.1) mEq/L Chloride 114 H (98-107) mEq/L Carbon Dioxide 21 L (23-29) mEq/L BUN 17 (8-23) mg/dL Creatinine 0.80 (0.60-1.20) mg/dL Glucose 121 H (70-105) mg/dL Calcium 7.7 L (8.6-10.3) mg/dL - VTE Documentation of Mechanical Device: Intermittent pneumatic compression device Consult Discharge Plan - Plan Additional Instructions: continue current medications for calm/agitation, and to keep pt comfortable and redirectable Referrals: Albertina Zapien MD [Primary Care Provider] - <Virgil Hernandez - Last Filed: 04/23/18 12:04> Date of Encounter: 04/21/18 Objective Vital Signs - Last 8 Hours Temp Pulse Resp BP Pulse Ox 04/23/18 11:15 98.3 F 114 18 144/95 96 04/23/18 08:19 95 04/23/18 08:00 99.2 F 110 16 153/97 95 Intake and Output 04/22/18 04/23/18 04/23/18 23:59 07:59 15:59 Intake Total 200 / 200 115 / 115 120 / 120 Output Total 0 / 0 Balance 200 / 200 115 / 115 120 / 120 Intake: IV Fluids 200 / 200 100 / 100 100 / 100 Ofirmev 1,000 mg/100 ml 1,000 100 / 100 mg In 100 ml @ 400 mls/hr IVPB ONCE ONE Rx#:[id number] Flagyl Premix 500 MG/100 ML 500 100 / 100 100 / 100 100 / 100 mg In 100 ml @ 100 mls/hr IVPB Q8HR [facility] Rx#:[id number] Oral 15 15 20 / 20 Output: Urine 0 / 0 Other: Meal Breakfast Percent of Meal Consumed 5% # Urine Diapers 1 # Bowel Movement Diapers 0 Weight 91.8 kg 93.3 kg Patient Weight 04/23/18 23:59 Weight 93.3 kg - Labs 04/23/18 04:12 04/23/18 04:12 Diabetes panel 04/23/18 Range/Units 04:12 Sodium 141 (136-145) mEq/L Potassium 3.4 L (3.5-5.1) mEq/L Chloride 114 H (98-107) mEq/L Carbon Dioxide 19 L (23-29) mEq/L BUN 10 (8-23) mg/dL Creatinine 0.62 (0.60-1.20) mg/dL Glucose 104 (70-105) mg/dL Calcium 7.9 L (8.6-10.3) mg/dL Calcium panel 04/23/18 Range/Units 04:12 Calcium 7.9 L (8.6-10.3) mg/dL Pituitary panel 04/23/18 Range/Units 04:12 Sodium 141 (136-145) mEq/L Potassium 3.4 L (3.5-5.1) mEq/L Chloride 114 H (98-107) mEq/L Carbon Dioxide 19 L (23-29) mEq/L BUN 10 (8-23) mg/dL Creatinine 0.62 (0.60-1.20) mg/dL Glucose 104 (70-105) mg/dL Calcium 7.9 L (8.6-10.3) mg/dL Adrenal panel 04/23/18 Range/Units 04:12 Sodium 141 (136-145) mEq/L Potassium 3.4 L (3.5-5.1) mEq/L Chloride 114 H (98-107) mEq/L Carbon Dioxide 19 L (23-29) mEq/L BUN 10 (8-23) mg/dL Creatinine 0.62 (0.60-1.20) mg/dL Glucose 104 (70-105) mg/dL Calcium 7.9 L (8.6-10.3) mg/dL - Attending Attestation I examined this patient and my medical decision-making was reviewed with the Resident Physician. I agree with the documented findings, disposition and treatment plan as described except to the extent set forth below. The patient is seen and evaluated on morning rounds with the resident. She remains unresponsive. Her ostomy is functioning normally. We will try to take measures to assist her with orientation and returned to her baseline of dementia. Continue supportive care. Virgil Hernandez MD FACS
[2018-04-21] MEDS: *HR* FentaNYL (PF) 100 MCG/2 ML VIAL IVP PRN (10:52)
[2018-04-21] MEDS: Ondansetron 4 MG/2 ML VIAL IVP PRN (10:52)
[2018-04-21] MEDS: Pantoprazole 40 MG VIAL IVP SCH (11:01)
[2018-04-21] MEDS: Levalbuterol Neb 1.25 MG/3 ML IH PRN (23:14)
[2018-04-22] MEDS: OXYCODONE Oral CONC 10 MG/0.5 ML ORAL.SYG SL PRN ×3 (02:50→19:37)
[2018-04-22 05:55] LABS: Basophils % 0.1 %; Eosinophils # 0.1 K/mcL (0.0-0.6); Eosinophils % 0.5 %; Hematocrit 32.3 % (35.3-44.9); Hemoglobin 10.6 g/dL (11.5-15.4); Immature Granulocytes % 0.8 % (0-4); Lymphocytes % 7.7 %; Mean Corpuscular HGB Conc 32.8 g/dL (31.6-35.5); Mean Corpuscular Hemoglobin 28.4 pg (28.0-33.3); Mean Corpuscular Volume 86.6 fL (83.0-100.0); Mean Platelet Volume 10.7 fL (9.4-12.4); Monocytes # 0.6 K/mcL (0.0-1.3); Monocytes % 4.8 %; Neutrophils # 11.4 K/mcL (1.6-8.9); Platelet Count 294 K/mcL (140-400); Red Blood Count 3.73 M/mcL (3.82-4.97); Red Cell Distribution Width 13.9 % (11.5-14.5); Segmented Neutrophils % 86.1 %
[2018-04-22] MEDS: *HR* Heparin 5,000 UNIT/ML VIAL SQ SCH ×2 (05:57→16:26)
[2018-04-22 06:17] LABS: BUN/Creatinine Ratio 20 (6-26); Blood Urea Nitrogen 13 mg/dL (8-23); Calcium 7.7 mg/dL (8.6-10.3); Carbon Dioxide 18 mEq/L (23-29); Chloride 112 mEq/L (98-107); Glucose 116 mg/dL (70-105); Magnesium 1.6 mg/dL (1.6-2.6); Osmolality,Calculated 289 (280-300); Potassium 3.1 mEq/L (3.5-5.1); Sodium 139 mEq/L (136-145); eGFR For African Americans > 60 (> 60); eGFR For Non-African Americans > 60 (> 60)
[2018-04-22] MEDS ORDERED: Potassium Chloride Elixir 20 MEQ/15 ML UDC PO ONE (07:24)
--- NOTE | 2018-04-22 08:23 | Internal Med Progress Note ---
Date of Encounter: 04/22/18 Time of Encounter: 08:16 - Assessment and plan (1) Fever Current Visit: Yes Status: Acute Assessment and plan: POD 4, fever, will check CXR, UA and blood culture, changed cipro to levaqin Qualifiers: Fever type: unspecified Qualified Code(s): R50.9 - Fever, unspecified (2) Mass of colon Current Visit: Yes Status: Resolved Assessment and plan: Management as per above. Torrez's procedure, Sigmoid colectomy with end colostomy performed 04/18/18 CEA 1.4 Follow up on biopsy results. will consult heme/onc (3) Bowel obstruction Current Visit: Yes Status: Acute Assessment and plan: POD 4, on clear, mag advance to purred diet per SP if surgery is ok Qualifiers: Intestinal obstruction type: unspecified Intestinal obstruction extent: partial Qualified Code(s): K56.600 - Partial intestinal obstruction, unspecified as to cause (4) Hypokalemia Current Visit: Yes Status: Acute Assessment and plan: replaced oral (5) HLD (hyperlipidemia) Current Visit: Yes Status: Chronic Qualifiers: Hyperlipidemia type: mixed hyperlipidemia Qualified Code(s): E78.2 - Mixed hyperlipidemia (6) Hypomagnesemia Current Visit: Yes Status: Resolved (7) Dementia Current Visit: Yes Status: Chronic Assessment and plan: pschy is on board Qualifiers: Dementia type: unspecified type Dementia behavioral disturbance: without behavioral disturbance Qualified Code(s): F03.90 - Unspecified dementia without behavioral disturbance (8) Obesity (BMI 30.0-34.9) Current Visit: Yes Status: Chronic Assessment and plan: Lifestyle modification (9) Protein-calorie malnutrition, moderate Current Visit: Yes Status: Acute (10) Delirium Current Visit: Yes Status: Acute Assessment and plan: Supportive care, continue sitter, r/o infections (11) Hypothyroidism Current Visit: Yes Status: Acute Qualifiers: Hypothyroidism type: unspecified Qualified Code(s): E03.9 - Hypothyroidism , unspecified (12) HTN (hypertension) Current Visit: Yes Status: Chronic Qualifiers: Hypertension type: essential hypertension Qualified Code(s): I10 - Essential (primary) hypertension - Time Spent With Patient Total time spent is greater than 50% in coordination of care (as documented) at patient's floor/unit and/or counseling patient: 25 - 35 minutes - Subjective Interval history: Ms. Stinson is a 78 year old female who presented to [facility] ED today with a few day history of nausea, vomiting, diarrhea, poor PO intake, and generalized weakness. She has history of dementia, but usually awake and conservative.CT abdomen/pelvis showed suspected infiltrating mass of sigmoid colon and mild dilatation of colon proximal to mass suggesting obstruction. Patient had a sigmoid colectomy and colostomy on April 18. She is currently confused, has a sitter, colostomy is making stools. On clear liquids. Had a speech evaluation med advanced to pureed diets if surgery is okay, patient had a fever this morning 100.2 , MATA 120, I Ordered chest x-ray UA and the 2 sets of blood culture. She is on flagyle and cipro for GI coverage, I chanaged cipro to levaquin - Constitutional Vitals: Temp Pulse Resp BP Pulse Ox 100.2 F H 126 22 132/85 94 04/22/18 07:36 04/22/18 07:36 04/22/18 07:36 04/22/18 07:36 04/22/18 07:36 General appearance: Present: A&O X 1, no acute distress, obese. Absent: answers questions appropriately Exam: CONSTITUTIONAL: patient appears as an age appropriate female in no acute distress. EYES Clear sclerae, bilateral pupils are equal, reactive to light. EMOI. RESPIRATORY: No accessory muscle use, bilateral basilar crackles to auscultation , no wheezing. CARDIOVASCULAR: Regular heart rate, normal S1 and S2, no murmurs GASTROINTESTINAL: bowel sounds present, soft, no tenderness. MUSCULOSKELETAL: Joints in normal range of motion, no clubbing, no edema, no cyanosis. Bilateral peripheral pulses 2+. NEUROLOGIC: CN II to XII are grossly intact, no focal neurological deficit. Internal Medicine: Result - Labs CBC & Chem 7: 04/22/18 03:37 04/22/18 03:37 Labs: Short CBC 04/22/18 Range/Units 03:37 WBC 13.2 H (4.3-11.1) K/mcL Hgb 10.6 L (11.5-15.4) g/dL Hct 32.3 L (35.3-44.9) % Plt Count 294 (140-400) K/mcL Neutrophils # 11.4 H (1.6-8.9) K/mcL BMP 04/22/18 03:37 Sodium 139 Potassium 3.1 L Chloride 112 H Carbon Dioxide 18 L BUN 13 Creatinine 0.65 Glucose 116 H Calcium 7.7 L - ABG Interpretation ABG results: PT/INR, D-dimer PT 14.2 Seconds (9.4-12.1) H 04/19/18 04:19 - Impressions Impressions Echocardiogram 04/20/18 13:45 Impressions: Sinus tachycardia. LVEF 65%. Atypical septal motion. Mild left ventricular diastolic dysfunction. Indeterminate diastolic function. Normal right ventricular structure and function. Mild-moderate tricuspid regurgitation. Moderate pulmonary hypertension. Left Ventricular Wall Motion: Rest Echo Findings All wall segments showed normal motion. Findings: Study Quality * Technically challenging due to clinical status. ECG Findings * Sinus tachycardia. Left Ventricle * LVEF 65%. * Atypical septal motion. * Mild left ventricular diastolic dysfunction. * Indeterminate diastolic function. Right Ventricle * Normal right ventricular structure and function. Left Atrium * Moderately dilated left atrium. Right Atrium * Normal right atrial size. Mitral Valve * Moderate mitral annular calcification * No mitral stenosis. * No mitral regurgitation. Aortic Valve * No aortic regurgitation. * Aortic valve not well visualized. * No aortic stenosis. Tricuspid Valve * Tricuspid valve not well visualized. * Mild-moderate tricuspid regurgitation. * Estimated RA pressure is 8 mmHg. * Estimated RVSP is 53 mmHg. * Moderate pulmonary hypertension. Pulmonic Valve * Pulmonic valve is not well visualized. * No pulmonic stenosis. * No pulmonic regurgitation. Pulmonary Artery * Pulmonary artery not well visualized. Aorta * Not well visualized. Pericardium * There is no pericardial effusion present. Interatrial Septum * No evidence of PFO by color Doppler. IVC * The IVC is not dilated. * < 50% respiratory change. Chest/Abdomen X-ray 04/21/18 07:35 IMPRESSION: Small bilateral pleural effusions with mild interstitial pulmonary edema. Mild right lower lobe patchy airspace opacity that may represent atelectasis and/or aspiration. No evidence of pneumoperitoneum. No evidence of bowel obstruction. D/ / Luis Peoples MD / Luis Peoples MD Interpreting Provider: Luis Peoples MD - VTE Documentation of Mechanical Device: Intermittent pneumatic compression device Consult Discharge Plan - Plan Additional Instructions: will continue to follow loosely please see recommendations above Referrals: Albertina Zapien MD [Primary Care Provider] -
[2018-04-22] MEDS: MetroNIDAZOLE 500 MG/100 ML 500 MG/100 ML BAG IVPB SCH ×3 (08:36→23:24)
[2018-04-22] MEDS: Haloperidol Lactate 5 MG/ML VIAL IVP PRN (08:47)
[2018-04-22] MEDS: Aspirin Enteric Coated 81 MG Tablet PO SCH (08:52)
[2018-04-22] MEDS ORDERED: Levofloxacin 750 MG/150 ML 750 MG/150 ML BAG IVPB SCH (09:00)
[2018-04-22 09:48] LABS: Bilirubin,Urine Negative (Negative); Blood,Urine Negative (Negative); Clarity,Urine Clear (Clear); Color,Urine Dark Yellow (Yellow); Glucose,Urine (UA) Normal (Normal); Ketones,Urine 15 mg/dL (Negative); Leukocyte Esterase,Urine Trace (Negative); Nitrite,Urine Positive (Negative); PH,Urine 5.5 pH Units (5.0-8.0); Protein,Urine Trace mg/dL (Neg-Trace); Specific Gravity,Urine > 1.030 (1.010-1.025); Urobilinogen,Urine Normal (Normal)
[2018-04-22 09:53] LABS: Bacteria,Urine None Seen per hpf (None-Few); Hyaline Casts,Urine None Seen per lpf (None-Few); Squamous Epithelial Cell,Urine Many per lpf (None-Few); WBC,Urine 0-3 per hpf (0-3)
--- NOTE | 2018-04-22 11:16 | General Surgery Progress Note ---
Date of Encounter: 04/22/18 Time of Encounter: 06:30 - Assessment and Plan (1) Bowel obstruction Current Visit: Yes Status: Acute POD #4 s/p Torrez's procedure - sigmoidectomy with diverting colostomy. 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 Labs: leukocytosis improving, mild anemia, hypokalemia, BUN and Cr normal PLAN: Ok to have clear liquid diet Pain and nausea control IV fluids, antibiotics, and electrolyte replacement per primary team Ostomy care - will need RN teaching prior to discharge - convex wafer with changes - loose abdominal binder if needed to protect colostomy PT/OT and SW following Qualifiers: Intestinal obstruction type: unspecified Intestinal obstruction extent: partial Qualified Code(s): K56.600 - Partial intestinal obstruction, unspecified as to cause (2) Mass of colon Current Visit: Yes Status: Resolved Plan as above (3) Dementia Current Visit: Yes Status: Chronic Management per primary and psychiatry Qualifiers: Dementia type: unspecified type Dementia behavioral disturbance: without behavioral disturbance Qualified Code(s): F03.90 - Unspecified dementia without behavioral disturbance Subjective Narrative: Pt resting. She does not speak much during exam. Does not appear to be in pain during physical exam. Sitter at bedside. Objective Vital Signs - Last 8 Hours Temp Pulse Resp BP Pulse Ox 04/22/18 09:27 99.1 F 119 22 115/75 92 04/22/18 07:50 92 04/22/18 07:36 100.2 F H 126 22 132/85 94 04/22/18 05:34 98.7 F 115 26 136/85 95 Intake and Output 04/21/18 04/22/18 04/22/18 23:59 07:59 15:59 Intake Total 315 / 315 300 / 300 250 / 250 Output Total 110 / 110 60 / 60 450 / 450 Balance 205 / 205 240 / 240 -200 / -200 Intake: IV Fluids 300 / 300 300 / 300 250 / 250 Cipro Premix 400 MG/200 ML 400 200 / 200 200 / 200 mg In 200 ml @ 200 mls/hr IVPB Q12H [facility] Rx#:[id number] Levaquin Premix 750mg/150 mL 150 / 150 750 mg In 150 ml @ 100 mls/hr IVPB DAILY [facility] Rx#:[id number] Flagyl Premix 500 MG/100 ML 500 100 / 100 100 / 100 100 / 100 mg In 100 ml @ 100 mls/hr IVPB Q8HR [facility] Rx#:[id number] Oral 15 / 15 0 / 0 Output: Urine 60 / 60 60 / 60 Stool 50 / 50 50 / 50 Straight Cath 400 / 400 Other: Stool Consistency liquid Stool Color Green Brown Green # Urine Diapers 1 1 0 Weight 92.9 kg Patient Weight 04/22/18 23:59 Weight 92.9 kg - General physical appearance no distress - Eyes normal ocular movement - ENT atraumatic, normocephalic - Neck Neck exam: trachea midline - Respiratory other (decreased bilaterally) - Cardiovascular Cardiovascular exam: Present: RRR - Abdomen Abdomen: Present: bowel sounds present, soft, non tender, wound (ostomy pink and moist with output) - Incision Incision: Present: clean and dry, intact - Neurologic confused - Labs 04/22/18 03:37 04/22/18 03:37 Diabetes panel 04/22/18 Range/Units 03:37 Sodium 139 (136-145) mEq/L Potassium 3.1 L (3.5-5.1) mEq/L Chloride 112 H (98-107) mEq/L Carbon Dioxide 18 L (23-29) mEq/L BUN 13 (8-23) mg/dL Creatinine 0.65 (0.60-1.20) mg/dL Glucose 116 H (70-105) mg/dL Calcium 7.7 L (8.6-10.3) mg/dL Calcium panel 04/22/18 Range/Units 03:37 Calcium 7.7 L (8.6-10.3) mg/dL Pituitary panel 04/22/18 Range/Units 03:37 Sodium 139 (136-145) mEq/L Potassium 3.1 L (3.5-5.1) mEq/L Chloride 112 H (98-107) mEq/L Carbon Dioxide 18 L (23-29) mEq/L BUN 13 (8-23) mg/dL Creatinine 0.65 (0.60-1.20) mg/dL Glucose 116 H (70-105) mg/dL Calcium 7.7 L (8.6-10.3) mg/dL Adrenal panel 04/22/18 Range/Units 03:37 Sodium 139 (136-145) mEq/L Potassium 3.1 L (3.5-5.1) mEq/L Chloride 112 H (98-107) mEq/L Carbon Dioxide 18 L (23-29) mEq/L BUN 13 (8-23) mg/dL Creatinine 0.65 (0.60-1.20) mg/dL Glucose 116 H (70-105) mg/dL Calcium 7.7 L (8.6-10.3) mg/dL - VTE Documentation of Mechanical Device: Intermittent pneumatic compression device Consult Discharge Plan - Plan Additional Instructions: will continue to follow loosely please see recommendations above Referrals: Albertina Zapien MD [Primary Care Provider] -
--- NOTE | 2018-04-22 19:22 | Consult Note ---
Date of Encounter: 04/22/18 Time of Encounter: 18:30 Assessment & Recommendation (1) Delirium Current visit: Yes Status: Acute (2) Dementia Current visit: Yes Status: Chronic Qualifiers: Dementia type: unspecified type Dementia behavioral disturbance: without behavioral disturbance Qualified Code(s): F03.90 - Unspecified dementia without behavioral disturbance History of Present Illness Requesting Physician: Bridgette Lindquist MD Reason for consult: delirium History of present illness: Ms. Stinson is a 78 year old female patient was placed in restraints due to aggressiveness towards staff and pulling IVs out and her colostomy bag off. During the night patient was checked on multiple occasions to assess if she was able to have her order for soft restraints removed but per nurse the couple of times they had taken her restraints off that night in attempts she immediately was pulling at her IV. Restraint sights were checked with no signs of skin break down or ischemia. Pulses were present bilaterally. Patient continued to be confused and mumble words but was not responding to any of my questions. Soft restraints were continued for patient's safety and to complete treatment. Pt is a 78 yo, , female, who presents for exacerbation of neurocogniton , currently agitatied and aggressive. Pt is currently resting comfortably. Pt was mininamally responsive and unable to participate in the interview process. will continue to follow pt loosely. Pt was smiling and pleasent at time of interview. MSE: Alert and Oriented x1 Appearance: dressed in hospital pajamas Behavior: Polite, pleasant Speech: fluent, one word answers, normal tone, normal rate Mood: unable to assess Affect: pleasant Thought content: pleasant Psychosis: none noted, currently does not appear to be responding to internal stimuli. Thought Process: significant reduction in neurocognition however unable to assess at this time. Judgment: Poor. Insight: Poor . 1.Interval hx 2.Continue current medications 3.Review current labs 4. Supportive therapy was provided 5. Will continue to follow pt loosely 6. Recomment utilization of PRN medications to keep pt calm and in compliance with treatment. 7. Concern for asperation with sedation. CC: Bridgette Lindquist MD Past Med Surg Social Fam HX - Past Medical History Medical history: hyperlipidemia, hypertension, thyroid disease, venous stasis - Past Psychiatric History Psychiatric history: Reports: other (unable to assess) Family psychiatric history: Unknown Family History of Suicide: Unknown - Past Surgical History Surgical History: no surgical history - Social History Smoking Status: Never smoker Smokeless Tobacco Status: No Alcohol use: none Drug use: none Medications & Allergies Aspirin [Lo-Dose Aspirin EC] 81 mg PO DAILY 04/18/18 [History] Citalopram [CeleXA] 30 mg PO DAILY 04/18/18 [History] Donepezil HCl [Aricept] 10 mg PO HS 04/18/18 [History] Levothyroxine [Synthroid] 100 mcg PO DAILY 04/18/18 [History] Lisinopril-HCTZ 10-12.5 [Prinzide 10-12.5] 1 each PO DAILY 04/18/18 [History] Potassium Chloride [K-Tab ER] 20 meq PO DAILY 04/18/18 [History] Simvastatin [Zocor] 20 mg PO DAILY 04/18/18 [History] 3 Allergy/AdvReac Type Severity Reaction Status Date / Time No Known Allergies Allergy Verified 04/20/17 08:49 Review of Systems Psychiatric: Reports: other (unable to assess at this time) Psychiatry Exam - Constitutional Vitals: Temp Pulse Resp BP Pulse Ox 98.6 F 118 20 136/81 94 04/22/18 15:59 04/22/18 15:59 04/22/18 15:59 04/22/18 15:59 04/22/18 15:59 - Psychiatric Patient Orientation: Yes Person Level of alertness: Sedated Behavior: calm, other (redirectable) Psychomotor activity: Normal Eye Contact: Minimal Contact Mood Description: Anxious Affect description: flat Speech Volume: Soft/Quiet Speech pattern: normal rate, fluent Language & Vocabulary: limited Thought Process: Disorganized, Slowed Thinking Thought Content: No Suicidal ideation, No Homicidal ideation Perceptual Disturbances: No Auditory hallucinations, No Visual hallucinations Attention Span Ability: Unable to Focus Memory Description: Immediate Impaired, Remote Impaired Patient Reliability: Not Reliable Historian Fund of knowledge: Yes below average Intelligence Estimate: Average Judgment: Poor Insight: None Results - Labs Labs: Laboratory Last Values WBC 13.2 K/mcL (4.3-11.1) H 04/22/18 03:37 RBC 3.73 M/mcL (3.82-4.97) L 04/22/18 03:37 Hgb 10.6 g/dL (11.5-15.4) L 04/22/18 03:37 Hct 32.3 % (35.3-44.9) L 04/22/18 03:37 MCV 86.6 fL (83.0-100.0) 04/22/18 03:37 MCH 28.4 pg (28.0-33.3) 04/22/18 03:37 MCHC 32.8 g/dL (31.6-35.5) 04/22/18 03:37 RDW 13.9 % (11.5-14.5) 04/22/18 03:37 Plt Count 294 K/mcL (140-400) 04/22/18 03:37 MPV 10.7 fL (9.4-12.4) 04/22/18 03:37 Immature Gran % 0.8 % (0-4) 04/22/18 03:37 Seg Neutrophils % 86.1 % 04/22/18 03:37 Lymphocytes % 7.7 % 04/22/18 03:37 Monocytes % 4.8 % 04/22/18 03:37 Eosinophils % 0.5 % 04/22/18 03:37 Basophils % 0.1 % 04/22/18 03:37 Neutrophils # 11.4 K/mcL (1.6-8.9) H 04/22/18 03:37 Lymphocytes # 1.0 K/mcL (0.6-4.6) 04/22/18 03:37 Monocytes # 0.6 K/mcL (0.0-1.3) 04/22/18 03:37 Eosinophils # 0.1 K/mcL (0.0-0.6) 04/22/18 03:37 Basophils # 0.0 K/mcL (0.0-0.2) 04/22/18 03:37 Platelet Estimate Normal (Normal) 04/19/18 04:19 Immature Plt Fraction 2.8 % (1.1-6.1) 04/20/18 05:43 PT 14.2 Seconds (9.4-12.1) H 04/19/18 04:19 INR 1.3 04/19/18 04:19 APTT 27.2 Seconds (26.0-36.0) 04/19/18 04:19 Sodium 139 mEq/L (136-145) 04/22/18 03:37 Potassium 3.1 mEq/L (3.5-5.1) L 04/22/18 03:37 Chloride 112 mEq/L (98-107) H 04/22/18 03:37 Carbon Dioxide 18 mEq/L (23-29) L 04/22/18 03:37 BUN 13 mg/dL (8-23) 04/22/18 03:37 Creatinine 0.65 mg/dL (0.60-1.20) 04/22/18 03:37 Est GFR ( Amer) > 60 (> 60) 04/22/18 03:37 Est GFR (Non-Af Amer) > 60 (> 60) 04/22/18 03:37 BUN/Creatinine Ratio 20 (6-26) 04/22/18 03:37 Glucose 116 mg/dL (70-105) H 04/22/18 03:37 POC Glucose 121 mg/dL (70-99) H 04/21/18 12:55 Calculated Osmolality 289 (280-300) 04/22/18 03:37 Calcium 7.7 mg/dL (8.6-10.3) L 04/22/18 03:37 Phosphorus 3.2 mg/dL (2.7-4.5) 04/19/18 04:19 Magnesium 1.6 mg/dL (1.6-2.6) 04/22/18 03:37 Total Bilirubin 0.8 mg/dL (0.3-1.0) 04/19/18 04:19 AST 21 Units/L (13-39) 04/19/18 04:19 ALT 20 Units/L (7-52) 04/19/18 04:19 Alkaline Phosphatase 80 Units/L (34-104) 04/19/18 04:19 Serum Total Protein 5.5 g/dL (6.4-8.9) L 04/19/18 04:19 Albumin 2.8 g/dL (3.5-5.7) L 04/19/18 04:19 Globulin 2.7 g/dL (2.4-3.5) 04/19/18 04:19 Albumin/Globulin Ratio 1.0 (1.1-2.2) L 04/19/18 04:19 Carcinoembryonic Ag 1.4 ng/mL (Less than 5.0) 04/18/18 15:56 Urine Color Dark Yellow (Yellow) 04/22/18 09:16 Urine Clarity Clear (Clear) 04/22/18 09:16 Urine pH 5.5 pH Units (5.0-8.0) 04/22/18 09:16 Ur Specific [place] > 1.030 (1.010-1.025) H 04/22/18 09:16 Urine Protein Trace mg/dL (Neg-Trace) 04/22/18 09:16 Urine Glucose (UA) Normal mg/dL (Normal) 04/22/18 09:16 Urine Ketones 15 mg/dL (Negative) H 04/22/18 09:16 Urine Blood Negative (Negative) 04/22/18 09:16 Urine Nitrite Positive (Negative) A 04/22/18 09:16 Urine Bilirubin Negative (Negative) 04/22/18 09:16 Urine Urobilinogen Normal mg/dL (Normal) 04/22/18 09:16 Ur Leukocyte Esterase Trace (Negative) H 04/22/18 09:16 Urine Microscopic RBC 5-15 per hpf (0-3) H 04/22/18 09:16 Urine Microscopic WBC 0-3 per hpf (0-3) 04/22/18 09:16 Ur Squamous Epith Cells Many per lpf (None-Few) H 04/22/18 09:16 Urine Bacteria None Seen per hpf (None-Few) 04/22/18 09:16 Hyaline Casts None Seen per lpf (None-Few) 04/22/18 09:16 Ur Culture Indicated? NO. (NO) A 04/22/18 09:16 - Impressions Impressions Chest X-Ray 04/22/18 08:12 IMPRESSION: 1. Stable pulmonary vascular congestion with low lung volumes and bibasilar atelectasis. D/ / Demetri Benz MD / Demetri Benz MD Interpreting Provider: Demetri Benz MD Consult Discharge Plan - Plan Additional Instructions: continue current medications for calm/agitation, and to keep pt comfortable and redirectable Referrals: Albertina Zapien MD [Primary Care Provider] -
[2018-04-22] MEDS ORDERED: Acetaminophen IV 1,000 MG/100 ML INFUS..BTL IVPB ONE (22:18)
[2018-04-23 04:35] LABS: Basophils % 0.1 %; Eosinophils # 0.1 K/mcL (0.0-0.6); Eosinophils % 1.8 %; Hematocrit 31.7 % (35.3-44.9); Hemoglobin 10.5 g/dL (11.5-15.4); Lymphocytes # 1.2 K/mcL (0.6-4.6); Lymphocytes % 16.3 %; Mean Corpuscular HGB Conc 33.1 g/dL (31.6-35.5); Mean Corpuscular Hemoglobin 28.3 pg (28.0-33.3); Mean Corpuscular Volume 85.4 fL (83.0-100.0); Mean Platelet Volume 9.8 fL (9.4-12.4); Monocytes # 0.9 K/mcL (0.0-1.3); Platelet Count 325 K/mcL (140-400); Red Blood Count 3.71 M/mcL (3.82-4.97); Red Cell Distribution Width 13.9 % (11.5-14.5); Segmented Neutrophils % 68.8 %
[2018-04-23 04:50] LABS: BUN/Creatinine Ratio 16 (6-26); Blood Urea Nitrogen 10 mg/dL (8-23); Calcium 7.9 mg/dL (8.6-10.3); Carbon Dioxide 19 mEq/L (23-29); Chloride 114 mEq/L (98-107); Glucose 104 mg/dL (70-105); Osmolality,Calculated 291 (280-300); Potassium 3.4 mEq/L (3.5-5.1); Sodium 141 mEq/L (136-145); eGFR For African Americans > 60 (> 60); eGFR For Non-African Americans > 60 (> 60)
[2018-04-23] MEDS: OXYCODONE Oral CONC 10 MG/0.5 ML ORAL.SYG SL PRN ×3 (05:19→18:15)
[2018-04-23] MEDS: *HR* Heparin 5,000 UNIT/ML VIAL SQ SCH ×2 (05:20→17:20)
[2018-04-23] MEDS: Aspirin Enteric Coated 81 MG Tablet PO SCH (07:41)
[2018-04-23] MEDS: MetroNIDAZOLE 500 MG/100 ML 500 MG/100 ML BAG IVPB SCH ×2 (07:41→15:48)
--- NOTE | 2018-04-23 08:28 | Internal Med Progress Note ---
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 continue ATB (3) Bowel obstruction Current Visit: Yes Status: Acute Assessment and plan: s/p Torrez's procedure - sigmoidectomy with diverting colostomy on 04/18. 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 on pureed diet with thin liquid Qualifiers: Intestinal obstruction type: unspecified Intestinal obstruction extent: partial Qualified Code(s): K56.600 - Partial intestinal obstruction, unspecified as to cause (4) Hypokalemia Current Visit: Yes Status: Acute Assessment and plan: replaced and follow up am (5) HLD (hyperlipidemia) Current Visit: Yes Status: Chronic Qualifiers: Hyperlipidemia type: mixed hyperlipidemia Qualified Code(s): E78.2 - Mixed hyperlipidemia (6) Hypomagnesemia Current Visit: Yes Status: Resolved (7) Dementia Current Visit: Yes Status: Chronic Qualifiers: Dementia type: unspecified type Dementia behavioral disturbance: without behavioral disturbance Qualified Code(s): F03.90 - Unspecified dementia without behavioral disturbance (8) Obesity (BMI 30.0-34.9) Current Visit: Yes Status: Chronic (9) Protein-calorie malnutrition, moderate Current Visit: Yes Status: Acute (10) Delirium Current Visit: Yes Status: Acute Assessment and plan: Post op delirium Supportive care, continue sitter, r/o infections (11) Hypothyroidism Current Visit: Yes Status: Acute Qualifiers: Hypothyroidism type: unspecified Qualified Code(s): E03.9 - Hypothyroidism , unspecified (12) HTN (hypertension) Current Visit: Yes Status: Chronic Qualifiers: Hypertension type: essential hypertension Qualified Code(s): I10 - Essential (primary) hypertension - Time Spent With Patient Total time spent is greater than 50% in coordination of care (as documented) at patient's floor/unit and/or counseling patient: Greater than 35 minutes - Subjective Interval history: Ms. Stinson is a 78 year old female who presented to [facility] ED today with a few day history of nausea, vomiting, diarrhea, poor PO intake, and generalized weakness. She has history of dementia, but usually awake and conservative.CT abdomen/pelvis showed suspected infiltrating mass of sigmoid colon and mild dilatation of colon proximal to mass suggesting obstruction. Patient had a sigmoid colectomy and colostomy on April 18. She is currently confused, has a sitter, colostomy is making stools. Had a speech evaluation and advanced to pureed diets on 04/22, patient had a fever this morning 100.2 , MATA 120, on 04/22, chest x-ray showed congestion and negative UA and the 2 sets of blood culture pending. Continue on flagyl and levaquin. Patient is doing ok, T 99.2, WBC trending down, she has b/l crackles, with wheezing, CXR showed congestion, will give Iv lasix Hypokalemia, oral replacement - Constitutional Vitals: Temp Pulse Resp BP Pulse Ox 99.2 F 110 16 153/97 95 04/23/18 08:00 04/23/18 08:00 04/23/18 08:00 04/23/18 08:00 04/23/18 08:19 General appearance: Present: A&O X 1, no acute distress, obese. Absent: answers questions appropriately Exam: CONSTITUTIONAL: patient appears as an age appropriate female in no acute distress. EYES Clear sclerae, bilateral pupils are equal, reactive to light. EMOI. RESPIRATORY: No accessory muscle use, bilateral clear to auscultation, no wheezing, no crackles/rales. CARDIOVASCULAR: Regular heart rate, normal S1 and S2, no murmurs GASTROINTESTINAL: bowel sounds present, soft, no tenderness. MUSCULOSKELETAL: Joints in normal range of motion, no clubbing, no edema, no cyanosis. Bilateral peripheral pulses 2+. NEUROLOGIC: CN II to XII are grossly intact, no focal neurological deficit. Internal Medicine: Result - Labs CBC & Chem 7: 04/23/18 04:12 04/23/18 04:12 Labs: Short CBC 04/23/18 Range/Units 04:12 WBC 7.2 (4.3-11.1) K/mcL Hgb 10.5 L (11.5-15.4) g/dL Hct 31.7 L (35.3-44.9) % Plt Count 325 (140-400) K/mcL Neutrophils # 5.0 (1.6-8.9) K/mcL BMP 04/23/18 04:12 Sodium 141 Potassium 3.4 L Chloride 114 H Carbon Dioxide 19 L BUN 10 Creatinine 0.62 Glucose 104 Calcium 7.9 L Urine 04/22/18 Range/Units 09:16 Urine Color Dark Yellow (Yellow) Urine Clarity Clear (Clear) Urine pH 5.5 (5.0-8.0) pH Units Ur Specific [place] > 1.030 H (1.010-1.025) Urine Protein Trace (Neg-Trace) mg/dL Urine Glucose (UA) Normal (Normal) mg/dL - ABG Interpretation ABG results: PT/INR, D-dimer PT 14.2 Seconds (9.4-12.1) H 04/19/18 04:19 - Impressions Impressions Chest X-Ray 04/22/18 08:12 IMPRESSION: 1. Stable pulmonary vascular congestion with low lung volumes and bibasilar atelectasis. D/ / Demetri Benz MD / Demetri Benz MD Interpreting Provider: Demetri Benz MD - VTE Documentation of Mechanical Device: Intermittent pneumatic compression device Consult Discharge Plan - Plan Additional Instructions: continue current medications for calm/agitation, and to keep pt comfortable and redirectable Referrals: Albertina Zapien MD [Primary Care Provider] -
[2018-04-23] MEDS ORDERED: Potassium Chloride Elixir 20 MEQ/15 ML UDC PO ONE (08:30)
[2018-04-23] MEDS: Furosemide 20 MG/2 ML VIAL IVP SCH ×2 (08:35→22:17)
[2018-04-23] MEDS: Ondansetron 4 MG/2 ML VIAL IVP PRN (08:42)
--- NOTE | 2018-04-23 10:32 | General Surgery Progress Note ---
<Eddie Aponte Ivanna - Last Filed: 04/23/18 10:29> Date of Encounter: 04/23/18 Time of Encounter: 07:50 - Assessment and Plan (1) Bowel obstruction Current Visit: Yes Status: Acute POD #5 s/p Torrez's procedure - sigmoidectomy with diverting colostomy. 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 Labs: leukocytosis resolved, mild anemia, hypokalemia, BUN and Cr normal PLAN: Continue pureed diet Pain and nausea control IV fluids, antibiotics, and electrolyte replacement per primary team Ostomy care - will need RN teaching prior to discharge - convex wafer with changes - loose abdominal binder if needed to protect colostomy PT/OT and SW following Qualifiers: Intestinal obstruction type: unspecified Intestinal obstruction extent: partial Qualified Code(s): K56.600 - Partial intestinal obstruction, unspecified as to cause (2) Mass of colon Current Visit: Yes Status: Resolved Plan as above (3) Dementia Current Visit: Yes Status: Chronic Management per primary and psychiatry Qualifiers: Dementia type: unspecified type Dementia behavioral disturbance: without behavioral disturbance Qualified Code(s): F03.90 - Unspecified dementia without behavioral disturbance Subjective Narrative: Pt with eyes open this AM. Still not verbally responding to questions. She is noted to be coughing more than before. Family at bedside. Objective Vital Signs - Last 8 Hours Temp Pulse Resp BP Pulse Ox 04/23/18 08:19 95 04/23/18 08:00 99.2 F 110 16 153/97 95 04/23/18 04:00 99.1 F 102 16 141/87 94 Intake and Output 04/22/18 04/23/18 04/23/18 23:59 07:59 15:59 Intake Total 200 / 200 115 / 115 120 / 120 Output Total 0 / 0 Balance 200 / 200 115 / 115 120 / 120 Intake: IV Fluids 200 / 200 100 / 100 100 / 100 Ofirmev 1,000 mg/100 ml 1,000 100 / 100 mg In 100 ml @ 400 mls/hr IVPB ONCE ONE Rx#:[id number] Flagyl Premix 500 MG/100 ML 500 100 / 100 100 / 100 100 / 100 mg In 100 ml @ 100 mls/hr IVPB Q8HR [facility] Rx#:[id number] Oral 15 / 15 20 / 20 Output: Urine 0 / 0 Other: Meal Breakfast Percent of Meal Consumed 5% # Urine Diapers 1 # Bowel Movement Diapers 0 Weight 91.8 kg 93.3 kg Patient Weight 04/23/18 23:59 Weight 93.3 kg - General physical appearance no distress - Respiratory other (decreased bilaterally) - Cardiovascular Cardiovascular exam: Present: tachycardia, regular rhythm - Abdomen Abdomen: Present: bowel sounds present, soft, non tender (pt does not respond when abdomen is palpated), wound (ostomy pink and moist with output). Absent: guarding, rebound, rigid - Incision Incision: Present: clean and dry, intact - Neurologic confused - Labs 04/23/18 04:12 04/23/18 04:12 Diabetes panel 04/23/18 Range/Units 04:12 Sodium 141 (136-145) mEq/L Potassium 3.4 L (3.5-5.1) mEq/L Chloride 114 H (98-107) mEq/L Carbon Dioxide 19 L (23-29) mEq/L BUN 10 (8-23) mg/dL Creatinine 0.62 (0.60-1.20) mg/dL Glucose 104 (70-105) mg/dL Calcium 7.9 L (8.6-10.3) mg/dL Calcium panel 04/23/18 Range/Units 04:12 Calcium 7.9 L (8.6-10.3) mg/dL Pituitary panel 04/23/18 Range/Units 04:12 Sodium 141 (136-145) mEq/L Potassium 3.4 L (3.5-5.1) mEq/L Chloride 114 H (98-107) mEq/L Carbon Dioxide 19 L (23-29) mEq/L BUN 10 (8-23) mg/dL Creatinine 0.62 (0.60-1.20) mg/dL Glucose 104 (70-105) mg/dL Calcium 7.9 L (8.6-10.3) mg/dL Adrenal panel 04/23/18 Range/Units 04:12 Sodium 141 (136-145) mEq/L Potassium 3.4 L (3.5-5.1) mEq/L Chloride 114 H (98-107) mEq/L Carbon Dioxide 19 L (23-29) mEq/L BUN 10 (8-23) mg/dL Creatinine 0.62 (0.60-1.20) mg/dL Glucose 104 (70-105) mg/dL Calcium 7.9 L (8.6-10.3) mg/dL - VTE Documentation of Mechanical Device: Intermittent pneumatic compression device Consult Discharge Plan - Plan Additional Instructions: continue current medications for calm/agitation, and to keep pt comfortable and redirectable Referrals: Albertina Zapien MD [Primary Care Provider] - <Virgil Hernandez - Last Filed: 04/23/18 12:14> Date of Encounter: 04/23/18 Objective Vital Signs - Last 8 Hours Temp Pulse Resp BP Pulse Ox 04/23/18 11:15 98.3 F 114 18 144/95 96 04/23/18 08:19 95 04/23/18 08:00 99.2 F 110 16 153/97 95 Intake and Output 04/22/18 04/23/18 04/23/18 23:59 07:59 15:59 Intake Total 200 / 200 115 / 115 120 / 120 Output Total 0 / 0 Balance 200 / 200 115 / 115 120 / 120 Intake: IV Fluids 200 / 200 100 / 100 100 / 100 Ofirmev 1,000 mg/100 ml 1,000 100 / 100 mg In 100 ml @ 400 mls/hr IVPB ONCE ONE Rx#:[id number] Flagyl Premix 500 MG/100 ML 500 100 / 100 100 / 100 100 / 100 mg In 100 ml @ 100 mls/hr IVPB Q8HR [facility] Rx#:[id number] Oral 15 / 15 20 / 20 Output: Urine 0 / 0 Other: Meal Breakfast Percent of Meal Consumed 5% # Urine Diapers 1 # Bowel Movement Diapers 0 Weight 91.8 kg 93.3 kg Patient Weight 04/23/18 23:59 Weight 93.3 kg - Labs 04/23/18 04:12 04/23/18 04:12 Diabetes panel 04/23/18 Range/Units 04:12 Sodium 141 (136-145) mEq/L Potassium 3.4 L (3.5-5.1) mEq/L Chloride 114 H (98-107) mEq/L Carbon Dioxide 19 L (23-29) mEq/L BUN 10 (8-23) mg/dL Creatinine 0.62 (0.60-1.20) mg/dL Glucose 104 (70-105) mg/dL Calcium 7.9 L (8.6-10.3) mg/dL Calcium panel 04/23/18 Range/Units 04:12 Calcium 7.9 L (8.6-10.3) mg/dL Pituitary panel 04/23/18 Range/Units 04:12 Sodium 141 (136-145) mEq/L Potassium 3.4 L (3.5-5.1) mEq/L Chloride 114 H (98-107) mEq/L Carbon Dioxide 19 L (23-29) mEq/L BUN 10 (8-23) mg/dL Creatinine 0.62 (0.60-1.20) mg/dL Glucose 104 (70-105) mg/dL Calcium 7.9 L (8.6-10.3) mg/dL Adrenal panel 04/23/18 Range/Units 04:12 Sodium 141 (136-145) mEq/L Potassium 3.4 L (3.5-5.1) mEq/L Chloride 114 H (98-107) mEq/L Carbon Dioxide 19 L (23-29) mEq/L BUN 10 (8-23) mg/dL Creatinine 0.62 (0.60-1.20) mg/dL Glucose 104 (70-105) mg/dL Calcium 7.9 L (8.6-10.3) mg/dL - Attending Attestation I examined this patient and my medical decision-making was reviewed with the Resident Physician. I agree with the documented findings, disposition and treatment plan as described except to the extent set forth below. The patient is seen and evaluated on morning rounds with the resident. She looks much better today. She is almost back to her baseline of dementia. She is sitting in bed and smiling as well as interacting with her family. Her ostomy is functioning normally. She is slow to take diet. Continue supportive care Virgil Hernandez MD FACS
[2018-04-23] MEDS ORDERED: Levofloxacin 750 MG/150 ML 750 MG/150 ML BAG IVPB SCH (14:00)
[2018-04-24] MEDS: MetroNIDAZOLE 500 MG/100 ML 500 MG/100 ML BAG IVPB SCH ×4 (00:03→23:45)
[2018-04-24 01:23] LABS: Basophils % 0.3 %; Eosinophils # 0.1 K/mcL (0.0-0.6); Eosinophils % 0.6 %; Hematocrit 35.1 % (35.3-44.9); Hemoglobin 11.4 g/dL (11.5-15.4); Immature Granulocytes % 1.9 % (0-4); Lymphocytes # 1.2 K/mcL (0.6-4.6); Lymphocytes % 11.4 %; Mean Corpuscular HGB Conc 32.5 g/dL (31.6-35.5); Mean Corpuscular Hemoglobin 27.2 pg (28.0-33.3); Mean Corpuscular Volume 83.8 fL (83.0-100.0); Mean Platelet Volume 9.8 fL (9.4-12.4); Monocytes # 1.2 K/mcL (0.0-1.3); Monocytes % 11.7 %; Neutrophils # 7.7 K/mcL (1.6-8.9); Platelet Count 429 K/mcL (140-400); Red Blood Count 4.19 M/mcL (3.82-4.97); Red Cell Distribution Width 14.2 % (11.5-14.5); Segmented Neutrophils % 74.1 %
[2018-04-24 01:40] LABS: Alanine Aminotransferase 20 Units/L (7-52); Albumin 2.8 g/dL (3.5-5.7); Albumin/Globulin Ratio 0.9 (1.1-2.2); Alkaline Phosphatase 81 Units/L (34-104); Aspartate Amino Transferase 18 Units/L (13-39); BUN/Creatinine Ratio 14 (6-26); Bilirubin,Direct 0.3 mg/dL (0.0-0.2); Bilirubin,Indirect 0.3 mg/dL (0.0-1.2); Bilirubin,Total 0.6 mg/dL (0.3-1.0); Blood Urea Nitrogen 11 mg/dL (8-23); Calcium 8.4 mg/dL (8.6-10.3); Carbon Dioxide 20 mEq/L (23-29); Chloride 109 mEq/L (98-107); Globulin 3.2 g/dL (2.4-3.5); Glucose 115 mg/dL (70-105); Magnesium 1.6 mg/dL (1.6-2.6); Osmolality,Calculated 292 (280-300); Potassium 3.2 mEq/L (3.5-5.1); Sodium 141 mEq/L (136-145); eGFR For African Americans > 60 (> 60); eGFR For Non-African Americans > 60 (> 60)
[2018-04-24] MEDS: Ondansetron 4 MG/2 ML VIAL IVP PRN (04:31)
[2018-04-24] MEDS: OXYCODONE Oral CONC 10 MG/0.5 ML ORAL.SYG SL PRN ×4 (05:13→23:27)
[2018-04-24] MEDS ORDERED: 0.9 % Sodium Chloride 1,000 ML IVC SCH ×2 (07:30→07:34)
[2018-04-24] MEDS: *HR* Heparin 5,000 UNIT/ML VIAL SQ SCH ×2 (07:31→17:34)
[2018-04-24] MEDS ORDERED: Potassium Chloride 40 MEQ, Lidocaine 1% 2 ML in D5% in Water 500 ML IVPB ONE (07:38)
--- NOTE | 2018-04-24 07:54 | Internal Med Progress Note ---
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 continue ATB (3) Bowel obstruction Current Visit: Yes Status: Acute Assessment and plan: s/p Torrez's procedure - sigmoidectomy with diverting colostomy on 04/18. 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 -persistent post-op ileus, NG was placed last night, surgery is on board Qualifiers: Intestinal obstruction type: unspecified Intestinal obstruction extent: partial Qualified Code(s): K56.600 - Partial intestinal obstruction, unspecified as to cause (4) Hypokalemia Current Visit: Yes Status: Acute Assessment and plan: IV repalced, will follow up pm (5) HLD (hyperlipidemia) Current Visit: Yes Status: Chronic Qualifiers: Hyperlipidemia type: mixed hyperlipidemia Qualified Code(s): E78.2 - Mixed hyperlipidemia (6) Hypomagnesemia Current Visit: Yes Status: Resolved Assessment and plan: IV replaced follow up am (7) Dementia Current Visit: Yes Status: Chronic Qualifiers: Dementia type: unspecified type Dementia behavioral disturbance: without behavioral disturbance Qualified Code(s): F03.90 - Unspecified dementia without behavioral disturbance (8) Protein-calorie malnutrition, moderate Current Visit: Yes Status: Acute (9) Delirium Current Visit: Yes Status: Acute (10) Hypothyroidism Current Visit: Yes Status: Acute Assessment and plan: changed to iV form Qualifiers: Hypothyroidism type: unspecified Qualified Code(s): E03.9 - Hypothyroidism , unspecified (11) HTN (hypertension) Current Visit: Yes Status: Chronic Qualifiers: Hypertension type: essential hypertension Qualified Code(s): I10 - Essential (primary) hypertension (12) Dysphagia Current Visit: Yes Status: Acute Assessment and plan: SP done on 04/22, ok for pureed diet with thin liquid Qualifiers: Dysphagia type: oral phase Qualified Code(s): R13.11 - Dysphagia, oral phase (13) Obesity (BMI 30-39.9) Current Visit: Yes Status: Acute - Time Spent With Patient Total time spent is greater than 50% in coordination of care (as documented) at patient's floor/unit and/or counseling patient: Greater than 35 minutes - Subjective Interval history: Ms. Stinson is a 78 year old female who presented to [facility] ED today with a few day history of nausea, vomiting, diarrhea, poor PO intake, and generalized weakness. She has history of dementia, but usually awake and conservative.CT abdomen/pelvis showed suspected infiltrating mass of sigmoid colon and mild dilatation of colon proximal to mass suggesting obstruction. Patient had a sigmoid colectomy and colostomy on April 18. She is currently confused, has a sitter, colostomy is making stools. Had a speech evaluation and advanced to pureed diets on 04/22, patient had a fever this morning 100.2 , MATA 120, on 04/22, chest x-ray ON 04/22 showed congestion and negative UA, DUPLEX OF LE was negative for DVT and the 2 sets of blood culture pending. Continue on flagyl and levaquin. Patient vomited last night, acute abdominal series on 04/24 showed persistent post-op ileus, NG placed had 800 ml output at the fisrt shift. will place soft restraint to prevent NG removal. CXR showed small pleural effusion with bibasilar atelectasis 1. persistent post-op delirum in setting of dementia, unable to wean sitter 2. persistent post-op ileus, on NG 3. post-op fever, no UTI and pneumonia, likley aspiration and atelectasis, on IV flagyl and zosyn discharge plan family prefer going home with home care, but family caseworker is concerned her daughter being too much to take care of her - Constitutional Vitals: Temp Pulse Resp BP Pulse Ox 100.5 F H 122 23 135/86 93 04/24/18 07:00 04/24/18 07:00 04/24/18 07:00 04/24/18 07:00 04/24/18 07:00 General appearance: Present: A&O X 1, mild distress, no acute distress, obese. Absent: answers questions appropriately Exam: CONSTITUTIONAL: patient appears as an age appropriate female in no acute distress. EYES Clear sclerae, bilateral pupils are equal, reactive to light. EMOI. RESPIRATORY: No accessory muscle use, bilateral clear to auscultation, no wheezing, no crackles/rales. CARDIOVASCULAR: Regular heart rate, normal S1 and S2, no murmurs GASTROINTESTINAL: bowel sounds present, soft, no tenderness. MUSCULOSKELETAL: Joints in normal range of motion, no clubbing, no edema, no cyanosis. Bilateral peripheral pulses 2+. NEUROLOGIC: CN II to XII are grossly intact, no focal neurological deficit. Internal Medicine: Result - Labs CBC & Chem 7: 04/24/18 00:39 04/24/18 00:39 Labs: Short CBC 04/24/18 Range/Units 00:39 WBC 10.3 (4.3-11.1) K/mcL Hgb 11.4 L (11.5-15.4) g/dL Hct 35.1 L (35.3-44.9) % Plt Count 429 H (140-400) K/mcL Neutrophils # 7.7 (1.6-8.9) K/mcL BMP 04/24/18 00:39 Sodium 141 Potassium 3.2 L Chloride 109 H Carbon Dioxide 20 L BUN 11 Creatinine 0.76 Glucose 115 H Calcium 8.4 L Liver Function 04/24/18 Range/Units 00:39 Total Bilirubin 0.6 (0.3-1.0) mg/dL Direct Bilirubin 0.3 H (0.0-0.2) mg/dL AST 18 (13-39) Units/L ALT 20 (7-52) Units/L Alkaline Phosphatase 81 (34-104) Units/L Albumin 2.8 L (3.5-5.7) g/dL - ABG Interpretation ABG results: PT/INR, D-dimer PT 14.2 Seconds (9.4-12.1) H 04/19/18 04:19 - Impressions Impressions Chest/Abdomen X-ray 04/24/18 05:45 IMPRESSION: Persistent mild postoperative ileus. Small pleural effusions with bibasilar atelectasis. D/ / Tahir Conrad MD / Tahir Conrad MD Interpreting Provider: Tahir Conrad MD - VTE Documentation of Mechanical Device: Intermittent pneumatic compression device Consult Discharge Plan - Plan Additional Instructions: continue current medications for calm/agitation, and to keep pt comfortable and redirectable Referrals: Albertina Zapien MD [Primary Care Provider] -
[2018-04-24] MEDS: Levothyroxine Sodium 100 MCG VIAL IVP SCH (07:56)
[2018-04-24] MEDS: Pantoprazole 40 MG VIAL IVP SCH (07:56)
[2018-04-24] MEDS: Aspirin Enteric Coated 81 MG Tablet PO SCH (07:56)
[2018-04-24] MEDS: Acetaminophen IV 1,000 MG/100 ML INFUS..BTL IVPB PRN ×2 (08:15→14:06)
[2018-04-24] MEDS: Piperacillin/Tazobactam 3.375 GM in 0.9 % Sodium Chloride Mini Bag 100 ML IVPB SCH ×2 (08:35→16:08)
--- NOTE | 2018-04-24 08:48 | General Surgery Progress Note ---
<FadiEddie Ivanna - Last Filed: 04/24/18 10:14> Date of Encounter: 04/24/18 Time of Encounter: 08:00 - Assessment and Plan (1) Bowel obstruction Current Visit: Yes Status: Acute POD #6 s/p Torrez's procedure - sigmoidectomy with diverting colostomy. 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 Continuing Flagyl AAS XR: do not think this is an ileus PLAN: NPO and NG tube - 800ml out - bowel rest today - possible retrial of diet tomorrow Plan for PICC and TPN start on Wednesday 04/25 IV fluids (D5 1/2 NS + 20K) at 75 ml/hr Pain and nausea control IV fluids, antibiotics, and electrolyte replacement per primary team Ostomy care - will need RN teaching prior to discharge - convex wafer with changes - loose abdominal binder if needed to protect colostomy PT/OT and SW following Qualifiers: Intestinal obstruction type: unspecified Intestinal obstruction extent: partial Qualified Code(s): K56.600 - Partial intestinal obstruction, unspecified as to cause (2) Mass of colon Current Visit: Yes Status: Resolved Plan as above (3) Dementia Current Visit: Yes Status: Chronic Management per primary and psychiatry Qualifiers: Dementia type: unspecified type Dementia behavioral disturbance: without behavioral disturbance Qualified Code(s): F03.90 - Unspecified dementia without behavioral disturbance Subjective Narrative: Pt not responding during encounter. Began having vomiting overnight and NG tube was placed. Objective Vital Signs - Last 8 Hours Temp Pulse Resp BP Pulse Ox 04/24/18 07:00 100.5 F H 122 23 135/86 93 04/24/18 05:30 100.7 F H 125 21 141/94 93 04/24/18 04:10 100.7 F H 127 26 151/99 94 04/24/18 00:47 99.1 F 120 24 139/88 91 Intake and Output 04/23/18 04/24/18 04/24/18 23:59 07:59 15:59 Intake Total 105 / 105 100 / 100 Output Total 0 / 0 0 / 0 Balance 105 / 105 100 / 100 0 / 0 Intake: IV Fluids 100 / 100 100 / 100 Flagyl Premix 500 MG/100 ML 500 100 / 100 100 / 100 mg In 100 ml @ 100 mls/hr IVPB Q8HR [facility] Rx#:[id number] Oral 5 / 5 0 / 0 Output: Urine 0 / 0 Stool 0 / 0 Other: Meal Dinner NPO Percent of Meal Consumed 5% # Urine Diapers 1 1 1 # Bowel Movements 0 Weight 89.3 kg Patient Weight 04/24/18 23:59 Weight 89.3 kg - General physical appearance no distress - Respiratory other (diminished and course bilaterally) - Cardiovascular Cardiovascular exam: Present: tachycardia, regular rhythm - Abdomen Abdomen: Present: bowel sounds present, soft, wound (ostomy pink and moist with output). Absent: guarding, rebound, rigid - Incision Incision: Present: clean and dry, intact - Neurologic confused - Labs 04/24/18 00:39 04/24/18 00:39 Diabetes panel 04/24/18 Range/Units 00:39 Sodium 141 (136-145) mEq/L Potassium 3.2 L (3.5-5.1) mEq/L Chloride 109 H (98-107) mEq/L Carbon Dioxide 20 L (23-29) mEq/L BUN 11 (8-23) mg/dL Creatinine 0.76 (0.60-1.20) mg/dL Glucose 115 H (70-105) mg/dL Calcium 8.4 L (8.6-10.3) mg/dL AST 18 (13-39) Units/L ALT 20 (7-52) Units/L Alkaline Phosphatase 81 (34-104) Units/L Albumin 2.8 L (3.5-5.7) g/dL Calcium panel 04/24/18 Range/Units 00:39 Calcium 8.4 L (8.6-10.3) mg/dL Albumin 2.8 L (3.5-5.7) g/dL Pituitary panel 04/24/18 Range/Units 00:39 Sodium 141 (136-145) mEq/L Potassium 3.2 L (3.5-5.1) mEq/L Chloride 109 H (98-107) mEq/L Carbon Dioxide 20 L (23-29) mEq/L BUN 11 (8-23) mg/dL Creatinine 0.76 (0.60-1.20) mg/dL Glucose 115 H (70-105) mg/dL Calcium 8.4 L (8.6-10.3) mg/dL Adrenal panel 04/24/18 Range/Units 00:39 Sodium 141 (136-145) mEq/L Potassium 3.2 L (3.5-5.1) mEq/L Chloride 109 H (98-107) mEq/L Carbon Dioxide 20 L (23-29) mEq/L BUN 11 (8-23) mg/dL Creatinine 0.76 (0.60-1.20) mg/dL Glucose 115 H (70-105) mg/dL Calcium 8.4 L (8.6-10.3) mg/dL Total Bilirubin 0.6 (0.3-1.0) mg/dL AST 18 (13-39) Units/L ALT 20 (7-52) Units/L Alkaline Phosphatase 81 (34-104) Units/L Albumin 2.8 L (3.5-5.7) g/dL - VTE Documentation of Mechanical Device: Intermittent pneumatic compression device Consult Discharge Plan - Plan Additional Instructions: continue current medications for calm/agitation, and to keep pt comfortable and redirectable Referrals: Albertina Zpaien MD [Primary Care Provider] - <Virgil Hernandez - Last Filed: 04/24/18 11:02> Date of Encounter: 04/24/18 Objective Vital Signs - Last 8 Hours Temp Pulse Resp BP Pulse Ox 04/24/18 10:00 100.2 F H 111 24 123/81 94 04/24/18 09:30 100.2 F H 111 20 123/81 94 04/24/18 09:00 93 04/24/18 07:30 100.5 F H 122 20 135/86 94 04/24/18 07:00 100.5 F H 122 23 135/86 93 04/24/18 05:30 100.7 F H 125 21 141/94 93 04/24/18 04:10 100.7 F H 127 26 151/99 94 Intake and Output 04/23/18 04/24/18 04/24/18 23:59 07:59 15:59 Intake Total 105 / 105 100 / 100 200 / 200 Output Total 0 / 0 0 / 0 Balance 105 / 105 100 / 100 200 / 200 Intake: IV Fluids 100 / 100 100 / 100 200 / 200 Ofirmev 1,000 mg/100 ml 1,000 100 / 100 mg In 100 ml @ 400 mls/hr IVPB Q6H [facility] Rx#:[id number] Flagyl Premix 500 MG/100 ML 500 100 / 100 100 / 100 100 / 100 mg In 100 ml @ 100 mls/hr IVPB Q8HR [facility] Rx#:[id number] Oral 5 / 5 0 / 0 Output: Urine 0 / 0 Stool 0 / 0 Other: Meal Dinner NPO Percent of Meal Consumed 5% # Urine Diapers 1 1 1 # Bowel Movements 0 Weight 89.3 kg Patient Weight 04/24/18 23:59 Weight 89.3 kg - Labs 04/24/18 00:39 04/24/18 00:39 Diabetes panel 04/24/18 Range/Units 00:39 Sodium 141 (136-145) mEq/L Potassium 3.2 L (3.5-5.1) mEq/L Chloride 109 H (98-107) mEq/L Carbon Dioxide 20 L (23-29) mEq/L BUN 11 (8-23) mg/dL Creatinine 0.76 (0.60-1.20) mg/dL Glucose 115 H (70-105) mg/dL Calcium 8.4 L (8.6-10.3) mg/dL AST 18 (13-39) Units/L ALT 20 (7-52) Units/L Alkaline Phosphatase 81 (34-104) Units/L Albumin 2.8 L (3.5-5.7) g/dL Calcium panel 04/24/18 Range/Units 00:39 Calcium 8.4 L (8.6-10.3) mg/dL Albumin 2.8 L (3.5-5.7) g/dL Pituitary panel 04/24/18 Range/Units 00:39 Sodium 141 (136-145) mEq/L Potassium 3.2 L (3.5-5.1) mEq/L Chloride 109 H (98-107) mEq/L Carbon Dioxide 20 L (23-29) mEq/L BUN 11 (8-23) mg/dL Creatinine 0.76 (0.60-1.20) mg/dL Glucose 115 H (70-105) mg/dL Calcium 8.4 L (8.6-10.3) mg/dL Adrenal panel 04/24/18 Range/Units 00:39 Sodium 141 (136-145) mEq/L Potassium 3.2 L (3.5-5.1) mEq/L Chloride 109 H (98-107) mEq/L Carbon Dioxide 20 L (23-29) mEq/L BUN 11 (8-23) mg/dL Creatinine 0.76 (0.60-1.20) mg/dL Glucose 115 H (70-105) mg/dL Calcium 8.4 L (8.6-10.3) mg/dL Total Bilirubin 0.6 (0.3-1.0) mg/dL AST 18 (13-39) Units/L ALT 20 (7-52) Units/L Alkaline Phosphatase 81 (34-104) Units/L Albumin 2.8 L (3.5-5.7) g/dL - Attending Attestation I examined this patient and my medical decision-making was reviewed with the Resident Physician. I agree with the documented findings, disposition and treatment plan as described except to the extent set forth below. The patient is seen and evaluated on morning rounds with resident. She developed nausea and vomiting last evening. Nasogastric tube was placed. Gen. large amount of drainage. Today her ostomy is functioning. I ordered an acute abdominal series last night. There is no evidence of obstruction on these films. This is likely postoperative ileus. This should resolve. We will start TPN tomorrow. The patient is resting comfortably Virgil Hernandez MD FACS
[2018-04-24] MEDS: D5% in 0.45% NACL w KCl 20 MEQ/1,000 ML MLS IVC SCH (11:39)
[2018-04-25] MEDS: Piperacillin/Tazobactam 3.375 GM in 0.9 % Sodium Chloride Mini Bag 100 ML IVPB SCH ×4 (00:53→23:32)
[2018-04-25 01:00] LABS: Basophils % 0.2 %; Eosinophils # 0.2 K/mcL (0.0-0.6); Eosinophils % 1.5 %; Hematocrit 32.5 % (35.3-44.9); Hemoglobin 10.7 g/dL (11.5-15.4); Immature Granulocytes % 1.7 % (0-4); Lymphocytes # 1.7 K/mcL (0.6-4.6); Lymphocytes % 11.5 %; Mean Corpuscular HGB Conc 32.9 g/dL (31.6-35.5); Mean Corpuscular Hemoglobin 27.6 pg (28.0-33.3); Mean Platelet Volume 9.4 fL (9.4-12.4); Monocytes # 1.5 K/mcL (0.0-1.3); Neutrophils # 11.2 K/mcL (1.6-8.9); Platelet Count 418 K/mcL (140-400); Red Blood Count 3.87 M/mcL (3.82-4.97); Red Cell Distribution Width 14.6 % (11.5-14.5); Segmented Neutrophils % 75.1 %
[2018-04-25 01:12] LABS: Alanine Aminotransferase 15 Units/L (7-52); Albumin 2.7 g/dL (3.5-5.7); Alkaline Phosphatase 72 Units/L (34-104); Aspartate Amino Transferase 15 Units/L (13-39); BUN/Creatinine Ratio 14 (6-26); Bilirubin,Direct 0.2 mg/dL (0.0-0.2); Bilirubin,Indirect 0.3 mg/dL (0.0-1.2); Bilirubin,Total 0.5 mg/dL (0.3-1.0); Blood Urea Nitrogen 13 mg/dL (8-23); Calcium 8.1 mg/dL (8.6-10.3); Carbon Dioxide 24 mEq/L (23-29); Chloride 112 mEq/L (98-107); Globulin 2.8 g/dL (2.4-3.5); Glucose 141 mg/dL (70-105); Magnesium 2.1 mg/dL (1.6-2.6); Osmolality,Calculated 294 (280-300); Potassium 3.5 mEq/L (3.5-5.1); Sodium 141 mEq/L (136-145); Total Protein 5.5 g/dL (6.4-8.9); eGFR For African Americans > 60 (> 60); eGFR For Non-African Americans 57 (> 60)
[2018-04-25] MEDS: D5% in 0.45% NACL w KCl 20 MEQ/1,000 ML MLS IVC SCH (04:46)
[2018-04-25] MEDS: OXYCODONE Oral CONC 10 MG/0.5 ML ORAL.SYG SL PRN (06:15)
[2018-04-25] MEDS: *HR* Heparin 5,000 UNIT/ML VIAL SQ SCH ×2 (06:16→17:08)
[2018-04-25] MEDS ORDERED: Methylnaltrexone 12 MG/0.6 ML SYRINGE SQ ONE (07:41)
[2018-04-25] MEDS ORDERED: Lidocaine -MPF 1% 5 ML AMPUL INFILT ONE (07:42)
[2018-04-25] MEDS ORDERED: 0.9 % Sodium Chloride 1,000 ML IVC SCH (07:45)
--- NOTE | 2018-04-25 07:47 | General Surgery Progress Note ---
<GilbertAngelica Lo - Last Filed: 04/25/18 07:43> Date of Encounter: 04/25/18 Time of Encounter: 07:30 - Assessment and Plan (1) Bowel obstruction Current Visit: Yes Status: Acute Date of procedure: 04/18/18 Pre-op diagnosis: Sigmoid colon obstruction secondary to infiltrating mass Post-op diagnosis: other (Sigmoid colon obstruction indistinct infiltrating mass ) Procedure: Torrez's procedure. Sigmoid colectomy with end colostomy POD#7 as above. Pathology pending. CEA unremarkable Clinical course thus far has included a period of being on CLD postoperatively, but on day 3 there was concern for aspiration. DIRECTOR [employer]LOOD BANK recommended thickened liquids and she was returned to a diet. On 04/23/2018 she was sitting up at bedside and appeared to be doing well, but on she developed a postoperative ileus and an NG was placed with return of 1L. She has had aprox 250 ml green output since 0500 on 04/25 and a total 2140 ml since placing NG wednesday. RN reports two wet depends during his shift, making I&O difficult. her stoma is pink and moist, but flat. She has had approximately 30 ML's of then brown liquid output. Plan: continue supportive care and discomfort management postoperative ileus: methylnatrexone SQ x1, NPO, NG to LIWS Await return of bowel function PICC/TPN for protein malnutrition Continue ATBX; WBC increased 10.3 to 15.0 (noted primary team changed levofloxacin to Zosyn on 04/24, flagyl remains) Will obtain repeat CXR Insert rios for accurate I&O in the setting of increased WBC, decreased urine output, and fever. Check Ua/cx upon insertion of rios Ostomy care: consult to wound care Place abdominal binder loosely to protect colostomy given confusion. continue PT/OT as able Qualifiers: Intestinal obstruction type: unspecified Intestinal obstruction extent: partial Qualified Code(s): K56.600 - Partial intestinal obstruction, unspecified as to cause (2) Leukocytosis Current Visit: Yes Status: Acute Suspect pulm vs urinary in nature. No evidence for concern for abdominal source. Rectal temp bolus 250 ml (for mild increase in creatinine), then MIV at 75 ml until TPN at goal titrate TPN/MIV to TPN goal. Stop MIV when TPN at goal UA w/culture CXR Blood cx prior to PICC insertion ATBX recommendations pending-will defer further management to primary team. Qualifiers: Leukocytosis type: unspecified Qualified Code(s): D72.829 - Elevated white blood cell count, unspecified (3) Mass of colon Current Visit: Yes Status: Resolved See assessment and plan above (4) Dementia Current Visit: Yes Status: Chronic psych following. Management per primary team. See A/P above Will d/c narcotic pain medication in an effort to reduce confusion (noted sitters at bedside and patient in restraints). Qualifiers: Dementia type: unspecified type Dementia behavioral disturbance: without behavioral disturbance Qualified Code(s): F03.90 - Unspecified dementia without behavioral disturbance (5) Protein-calorie malnutrition, moderate Current Visit: Yes Status: Acute See a/p above PICC and TPN Subjective Narrative: Unable to obtain subjective information due to current mental status. Sitters are at bedside. Objective Vital Signs - Last 8 Hours Temp Pulse Resp BP Pulse Ox 04/25/18 07:34 99.4 F 109 20 142/87 91 04/25/18 04:29 99.1 F 110 19 115/77 92 04/25/18 02:00 99.1 F 103 19 125/82 93 Intake and Output 04/24/18 04/24/18 04/25/18 15:59 23:59 07:59 Intake Total 1072 / 1072 450 / 450 850 / 850 Output Total 590 / 590 300 / 300 Balance 482 / 482 150 / 150 850 / 850 Intake: IV Fluids 1072 / 1072 450 / 450 850 / 850 0.9 % Sodium Chloride 1,000 ML 100 / 100 @ 75 mls/hr IVC .[id number] [facility] Rx #:[id number] KCl 20mEq IN D5%-0.45 NACL 20 250 / 250 750 / 750 meq In 1,000 ml @ 75 mls/hr IVC .[id number] [facility] Rx#:[id number] Ofirmev 1,000 mg/100 ml 1,000 200 / 200 mg In 100 ml @ 400 mls/hr IVPB Q6H PRN Rx#:[id number] Magnesium Sulfate Premix 2gm/ 50 / 50 50mL 2 gm In 50 ml @ 50 mls/hr IVPB ONCE ONE Rx#:[id number] Flagyl Premix 500 MG/100 ML 500 100 / 100 100 / 100 100 / 100 mg In 100 ml @ 100 mls/hr IVPB Q8HR [facility] Rx#:[id number] Zosyn 3.375 GM In 0.9 % Sodium 100 / 100 100 / 100 Chloride (Mini-Bag +) 100 ML @ 25 mls/hr IVPB Q8HR [facility] Rx#: [id number] KCl 40 MEQ Xylocaine 2 ML In 522 / 522 Dextrose 5% 500 ML @ 130.5 mls/ hr IVPB ONCE ONE Rx#:[id number] Oral 0 / 0 0 / 0 Output: Stool 0 / 0 Gastric Drainage 590 / 590 300 / 300 Other: Meal npo NPO Percent of Meal Consumed 0% # Urine Diapers 0 0 0 # Bowel Movements 0 0 Weight 90.8 kg Blood Glucose* 142 134 131 Patient Weight 04/25/18 23:59 Weight 90.8 kg - General physical appearance no distress, other (confused) - ENT dry mucosa, atraumatic, normocephalic, Other (NG noted to left nares) - Neck Neck exam: trachea midline, no venous distension - Respiratory other (Decreased respiratory effort) - Cardiovascular Cardiovascular exam: Present: RRR - Abdomen Abdomen: Present: soft, tender, wound (colostomy is WNL. Small amount of brown output in bag.). Absent: bowel sounds present (faint at best) Hernia: none - Incision Incision: Present: clean and dry, intact - Integumentary no growths - Neurologic confused, disoriented, other (restraints and sitter noted) - Musculoskeletal other - Psychiatric other (disoriented) - Labs 04/25/18 00:36 04/25/18 00:36 Diabetes panel 04/24/18 04/25/18 Range/Units 15:20 00:36 Sodium 141 (136-145) mEq/L Potassium 3.5 3.5 (3.5-5.1) mEq/L Chloride 112 H (98-107) mEq/L Carbon Dioxide 24 (23-29) mEq/L BUN 13 (8-23) mg/dL Creatinine 0.94 (0.60-1.20) mg/dL Glucose 141 H (70-105) mg/dL Calcium 8.1 L (8.6-10.3) mg/dL AST 15 (13-39) Units/L ALT 15 (7-52) Units/L Alkaline Phosphatase 72 (34-104) Units/L Albumin 2.7 L (3.5-5.7) g/dL Calcium panel 04/25/18 Range/Units 00:36 Calcium 8.1 L (8.6-10.3) mg/dL Albumin 2.7 L (3.5-5.7) g/dL Pituitary panel 04/24/18 04/25/18 Range/Units 15:20 00:36 Sodium 141 (136-145) mEq/L Potassium 3.5 3.5 (3.5-5.1) mEq/L Chloride 112 H (98-107) mEq/L Carbon Dioxide 24 (23-29) mEq/L BUN 13 (8-23) mg/dL Creatinine 0.94 (0.60-1.20) mg/dL Glucose 141 H (70-105) mg/dL Calcium 8.1 L (8.6-10.3) mg/dL Adrenal panel 04/24/18 04/25/18 Range/Units 15:20 00:36 Sodium 141 (136-145) mEq/L Potassium 3.5 3.5 (3.5-5.1) mEq/L Chloride 112 H (98-107) mEq/L Carbon Dioxide 24 (23-29) mEq/L BUN 13 (8-23) mg/dL Creatinine 0.94 (0.60-1.20) mg/dL Glucose 141 H (70-105) mg/dL Calcium 8.1 L (8.6-10.3) mg/dL Total Bilirubin 0.5 (0.3-1.0) mg/dL AST 15 (13-39) Units/L ALT 15 (7-52) Units/L Alkaline Phosphatase 72 (34-104) Units/L Albumin 2.7 L (3.5-5.7) g/dL - VTE Documentation of Mechanical Device: Intermittent pneumatic compression device Consult Discharge Plan - Plan Additional Instructions: continue current medications for calm/agitation, and to keep pt comfortable and redirectable Referrals: Albertina Zapien MD [Primary Care Provider] - <Virgil Hernandez - Last Filed: 04/26/18 13:07> Date of Encounter: 04/25/18 Objective Vital Signs - Last 8 Hours Temp Pulse Resp BP Pulse Ox 04/26/18 10:48 98.3 F 100 18 115/83 92 04/26/18 10:01 18 95 04/26/18 06:52 98.2 F 99 18 132/82 95 Intake and Output 04/25/18 04/26/18 04/26/18 23:59 07:59 15:59 Intake Total 595 / 595 350 / 350 Output Total 1200 / 1200 1500 / 1500 900 / 900 Balance -605 / -605 -1150 / -1150 -900 / -900 Intake: IV Fluids 355 / 355 350 / 350 Intralipid 20% 250 ML @ 21 mls/ 250 / 250 hr IVPB DAILY@1700 [facility] Rx#: [id number] Zosyn 3.375 GM In 0.9 % Sodium 100 / 100 100 / 100 Chloride (Mini-Bag +) 100 ML @ 25 mls/hr IVPB Q8HR [facility] Rx#: [id number] Potassium Phosphate 22 MEQ In 0 255 / 255 .9 % Sodium Chloride 250 ML @ 40 mls/hr IVPB ONCE ONE Rx#: [id number] Oral 240 / 240 0 / 0 Output: Urine 400 / 400 Gastric Tube Lavage Amount 300 / 300 550 / 550 500 / 500 Left Nare 300 / 300 550 / 550 500 / 500 Catheter 900 / 900 950 / 950 Other: Meal Dinner NPO BREAKFAST Percent of Meal Consumed 100% Weight 87.8 kg 87.8 kg Blood Glucose* 126 138 178 Patient Weight 04/26/18 23:59 Weight 87.8 kg - Labs 04/26/18 04:25 04/26/18 04:25 Diabetes panel 04/26/18 04/26/18 Range/Units 04:00 04:25 Sodium 143 (136-145) mEq/L Potassium 2.8 L (3.5-5.1) mEq/L Chloride 111 H (98-107) mEq/L Carbon Dioxide 26 (23-29) mEq/L BUN 8 (8-23) mg/dL Creatinine 0.63 (0.60-1.20) mg/dL Glucose 122 H (70-105) mg/dL Calcium 7.6 L (8.6-10.3) mg/dL Triglycerides 100 (< 150) mg/dL Calcium panel 04/26/18 Range/Units 04:25 Calcium 7.6 L (8.6-10.3) mg/dL Phosphorus 3.0 (2.7-4.5) mg/dL Pituitary panel 04/26/18 Range/Units 04:25 Sodium 143 (136-145) mEq/L Potassium 2.8 L (3.5-5.1) mEq/L Chloride 111 H (98-107) mEq/L Carbon Dioxide 26 (23-29) mEq/L BUN 8 (8-23) mg/dL Creatinine 0.63 (0.60-1.20) mg/dL Glucose 122 H (70-105) mg/dL Calcium 7.6 L (8.6-10.3) mg/dL Adrenal panel 04/26/18 Range/Units 04:25 Sodium 143 (136-145) mEq/L Potassium 2.8 L (3.5-5.1) mEq/L Chloride 111 H (98-107) mEq/L Carbon Dioxide 26 (23-29) mEq/L BUN 8 (8-23) mg/dL Creatinine 0.63 (0.60-1.20) mg/dL Glucose 122 H (70-105) mg/dL Calcium 7.6 L (8.6-10.3) mg/dL - Attending Attestation I have personally performed a face to face evaluation on this patient. I have reviewed and agree with the care plan. History and Exam by me shows: The patient is seen and evaluated on morning rounds. She has had nausea and vomiting and ileus. We will continue nasogastric tube drainage today. Virgil Hernandez MD FACS
[2018-04-25] MEDS ORDERED: 0.9 % Sodium Chloride 250 ML IVC ONE (08:02)
[2018-04-25 08:28] LABS: Bilirubin,Urine Negative (Negative); Blood,Urine Negative (Negative); Clarity,Urine Clear (Clear); Color,Urine Yellow (Yellow); Glucose,Urine (UA) Normal (Normal); Ketones,Urine Trace mg/dL (Negative); Leukocyte Esterase,Urine Negative (Negative); Nitrite,Urine Negative (Negative); Protein,Urine Negative (Neg-Trace); Specific Gravity,Urine 1.019 (1.010-1.025); Urobilinogen,Urine Normal (Normal)
[2018-04-25 09:01] LABS: Magnesium 1.9 mg/dL (1.6-2.6); Phosphorous 2.2 mg/dL (2.7-4.5)
[2018-04-25] MEDS: MetroNIDAZOLE 500 MG/100 ML 500 MG/100 ML BAG IVPB SCH (09:51)
[2018-04-25] MEDS: 0.9 % Sodium Chloride 1,000 ML IVC SCH (09:51)
[2018-04-25] MEDS: Levothyroxine Sodium 100 MCG VIAL IVP SCH (09:52)
[2018-04-25] MEDS: Pantoprazole 40 MG VIAL IVP SCH (09:52)
[2018-04-25] MEDS ORDERED: D10% in Water 500 ML IVC PRN (11:43)
[2018-04-25] MEDS ORDERED: D5% in Water 1,000 ML IVC PRN (12:12)
[2018-04-25] MEDS ORDERED: Dextrose Gel 15 GM/37.5 ML TUBE PO PRN ×2 (12:12)
[2018-04-25] MEDS ORDERED: *HR* Dextrose 50 % in Water (Syg) 50 ML SYRINGE IVP PRN (12:12)
[2018-04-25] MEDS: Insulin LISPRO 300 UNITS/3 ML VIAL SQ SCH ×3 (12:35→21:02)
[2018-04-25] MEDS: *HR* LORazepam 2 MG/ML VIAL IVP PRN (13:25)
[2018-04-25] MEDS ORDERED: Acetylcysteine 10% 2 ML INHSOL IH SCH (16:00)
--- NOTE | 2018-04-25 16:23 | Electrocardiograph Report ---
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
[2018-04-25] MEDS ORDERED: Clinimix E 5%-15% SOLUTION 2,000 ML with MVI, adult with vitamin K 10 ML IVC SCH (17:00)
--- NOTE | 2018-04-25 17:42 | Internal Med Progress Note ---
Date of Encounter: 04/25/18 Time of Encounter: 16:00 - Assessment and plan (1) Ileus following gastrointestinal surgery Current Visit: Yes Status: Acute Assessment and plan: Pt has developed ileus. Currently has NG with drainage. Has been started on TPN through new PICC today. (2) Leukocytosis Current Visit: Yes Status: Acute Assessment and plan: WBC higher today. Currently on IV abx to cover possible aspiration. Flagyl stopped today. Zosyn continued. Added IV Vancomycin today. Recheck labs tomorrow. Qualifiers: Leukocytosis type: unspecified Qualified Code(s): D72.829 - Elevated white blood cell count, unspecified (3) Bowel obstruction Current Visit: Yes Status: Acute Assessment and plan: From sigmoid colon mass s/p resection now. Pain management. Qualifiers: Intestinal obstruction type: other intestinal obstruction Intestinal obstruction extent: partial Qualified Code(s): K56.690 - Other partial intestinal obstruction (4) Hypokalemia Current Visit: Yes Status: Resolved Assessment and plan: Potassium normal. Now on TPN so will follow. (5) Hypophosphatemia Current Visit: Yes Status: Acute Assessment and plan: New today. Replete prior to TPN. (6) HTN (hypertension) Current Visit: Yes Status: Chronic Assessment and plan: Not taking PO. Continue IV meds for management of BP. Qualifiers: Hypertension type: essential hypertension Qualified Code(s): I10 - Essential (primary) hypertension (7) HLD (hyperlipidemia) Current Visit: Yes Status: Chronic Assessment and plan: Continue home medications when tolerating PO. Qualifiers: Hyperlipidemia type: mixed hyperlipidemia Qualified Code(s): E78.2 - Mixed hyperlipidemia (8) Hypothyroidism Current Visit: Yes Status: Chronic Assessment and plan: Currently on IV supplement. Qualifiers: Hypothyroidism type: acquired Qualified Code(s): E03.9 - Hypothyroidism, unspecified (9) DVT prophylaxis Current Visit: Yes Status: Acute (10) Dementia Current Visit: Yes Status: Chronic Assessment and plan: Sitter in room now. Qualifiers: Dementia type: unspecified type Dementia behavioral disturbance: without behavioral disturbance Qualified Code(s): F03.90 - Unspecified dementia without behavioral disturbance (11) Protein-calorie malnutrition, moderate Current Visit: Yes Status: Acute Assessment and plan: TPN started today. Electrolytes to be followed. - Time Spent With Patient Total time spent is greater than 50% in coordination of care (as documented) at patient's floor/unit and/or counseling patient: - Subjective Interval history: Ms Stinson is currently admitted for acute post op ileus following Hartmans procedure for colon mass. She is now on TPN. She remains moderate to high risk due to potential for worsening clinical status. Ms Stinson is very restless. Now on TPN. PICC placed today. She does not respond to questions. NG placed last night for vomiting. - Constitutional Vitals: Temp Pulse Resp BP Pulse Ox 98.8 F 101 28 130/70 92 04/25/18 15:55 04/25/18 15:55 04/25/18 15:55 04/25/18 15:55 04/25/18 15:55 General appearance: Present: A&O X 1, mild distress. Absent: answers questions appropriately - Head Head exam: Present: normocephalic - Eye Eye exam: Present: EOMI, conjuntiva pink - ENT ENT exam: Present: mucous membranes dry Additional comments: NG in place - Respiratory Respiratory exam: Present: decreased breath sounds, rhonchi. Absent: respiratory distress, wheezes - Cardiovascular Cardiovascular exam: Present: distant heart sounds, RRR. Absent: tachycardia - GI/Abdominal GI/Abdominal exam: Present: hypoactive bowel sounds, soft - Extremities Exam Extremities exam: Present: warm. Absent: tenderness - Neurological Exam Neurological exam: Present: alert Additional comments: Does not follow commands. - Skin Skin exam: Present: dry, warm Internal Medicine: Result - Labs CBC & Chem 7: 04/25/18 00:36 04/25/18 00:36 Labs: Short CBC 04/25/18 Range/Units 00:36 WBC 15.0 H (4.3-11.1) K/mcL Hgb 10.7 L (11.5-15.4) g/dL Hct 32.5 L (35.3-44.9) % Plt Count 418 H (140-400) K/mcL Neutrophils # 11.2 H (1.6-8.9) K/mcL BMP 04/25/18 00:36 Sodium 141 Potassium 3.5 Chloride 112 H Carbon Dioxide 24 BUN 13 Creatinine 0.94 Glucose 141 H Calcium 8.1 L Liver Function 04/25/18 Range/Units 00:36 Total Bilirubin 0.5 (0.3-1.0) mg/dL Direct Bilirubin 0.2 (0.0-0.2) mg/dL AST 15 (13-39) Units/L ALT 15 (7-52) Units/L Alkaline Phosphatase 72 (34-104) Units/L Albumin 2.7 L (3.5-5.7) g/dL Urine 04/25/18 Range/Units 08:10 Urine Color Yellow (Yellow) Urine Clarity Clear (Clear) Urine pH 6.0 (5.0-8.0) pH Units Ur Specific [place] 1.019 (1.010-1.025) Urine Protein Negative (Neg-Trace) mg/dL Urine Glucose (UA) Normal (Normal) mg/dL - ABG Interpretation ABG results: PT/INR, D-dimer PT 14.2 Seconds (9.4-12.1) H 04/19/18 04:19 - Impressions Impressions Chest X-Ray 04/25/18 07:38 IMPRESSION: 1. Enteric tube in the stomach. 2. Mild improved aeration of the right lung base. No acute basilar consolidation to suggest aspiration pneumonitis. D/ / 04/25/2018 08:16:57 Terrence Anderson MD / [facility] Interpreting Provider: Terrence Anderson MD - VTE Documentation of Mechanical Device: Intermittent pneumatic compression device Consult Discharge Plan - Plan Additional Instructions: continue current medications for calm/agitation, and to keep pt comfortable and redirectable Referrals: Albertina Zapien MD [Primary Care Provider] -
[2018-04-25] MEDS: Acetylcysteine 10% 2 ML INHSOL IH SCH (22:12)
[2018-04-25] MEDS: Levalbuterol Neb 1.25 MG/3 ML IH PRN (22:12)
[2018-04-26] MEDS: Insulin LISPRO 300 UNITS/3 ML VIAL SQ SCH ×6 (00:10→20:18)
[2018-04-26] MEDS: Levalbuterol Neb 1.25 MG/3 ML IH PRN ×4 (03:41→22:31)
[2018-04-26] MEDS: Acetylcysteine 10% 2 ML INHSOL IH SCH ×4 (03:41→22:31)
[2018-04-26 04:40] LABS: Basophils % 0.2 %; Eosinophils # 0.2 K/mcL (0.0-0.6); Eosinophils % 1.4 %; Hemoglobin 9.8 g/dL (11.5-15.4); Lymphocytes # 2.2 K/mcL (0.6-4.6); Mean Corpuscular HGB Conc 32.7 g/dL (31.6-35.5); Mean Corpuscular Hemoglobin 27.4 pg (28.0-33.3); Mean Corpuscular Volume 83.8 fL (83.0-100.0); Mean Platelet Volume 9.3 fL (9.4-12.4); Monocytes # 1.3 K/mcL (0.0-1.3); Monocytes % 8.1 %; Neutrophils # 11.6 K/mcL (1.6-8.9); Platelet Count 356 K/mcL (140-400); Red Blood Count 3.58 M/mcL (3.82-4.97); Red Cell Distribution Width 14.5 % (11.5-14.5); Segmented Neutrophils % 74.3 %
[2018-04-26 05:01] LABS: BUN/Creatinine Ratio 13 (6-26); Blood Urea Nitrogen 8 mg/dL (8-23); Calcium 7.6 mg/dL (8.6-10.3); Carbon Dioxide 26 mEq/L (23-29); Chloride 111 mEq/L (98-107); Glucose 122 mg/dL (70-105); Magnesium 1.5 mg/dL (1.6-2.6); Osmolality,Calculated 296 (280-300); Potassium 2.8 mEq/L (3.5-5.1); Sodium 143 mEq/L (136-145); eGFR For African Americans > 60 (> 60); eGFR For Non-African Americans > 60 (> 60)
[2018-04-26] MEDS: *HR* Heparin 5,000 UNIT/ML VIAL SQ SCH ×2 (06:16→17:23)
[2018-04-26] MEDS ORDERED: MetroNIDAZOLE 500 MG/100 ML 500 MG/100 ML BAG IVPB SCH (08:00)
--- NOTE | 2018-04-26 08:02 | General Surgery Progress Note ---
<Angelica Hunt - Last Filed: 04/26/18 07:57> Date of Encounter: 04/26/18 Time of Encounter: 07:15 - Assessment and Plan (1) Bowel obstruction Current Visit: Yes Status: Acute Date of procedure: 04/18/18 Pre-op diagnosis: Sigmoid colon obstruction secondary to infiltrating mass Post-op diagnosis: other (Sigmoid colon obstruction indistinct infiltrating mass ) Procedure: Torrez's procedure. Sigmoid colectomy with end colostomy POD#8 as above. Pathology pending. CEA unremarkable Clinical course thus far has included a period of being on CLD postoperatively, but on day 3 there was concern for aspiration. SPRINKLER FITTER recommended thickened liquids and she was returned to a diet. On 04/23/2018 she was sitting up at bedside and appeared to be doing well, but on 04/24 she developed a postoperative ileus and an NG was placed with return of 1L. NG output is decreasing. Norton catheter was replaced yesterday (04/25 due to decreased urinary output) and RN noted 1200 ML's return. her stoma is pink and moist, but flat. She has had approximately 20 ml bowel sweat Plan: continue supportive care and discomfort management postoperative ileus: methylnatrexone SQ x1 on 04/25 (can repeat on 04/26), NPO , NG to gravity. May return to suction if vomiting or nausea. Await return of bowel function PICC/TPN for protein malnutrition Continue ATBX; WBC increased 10.3>>15.0>> (noted primary team changed levofloxacin to Zosyn on 04/24, flagyl to vancomycin 625). Continue antibiotics per primary team Continue Norton while strict intake and output needed daily wound care per bedside RN: remove dressing. Wash midline incision with antibacterial soap. May cover with a dry dressing or leave open to air. Ostomy care: consult to wound care Place abdominal binder loosely to protect colostomy given confusion. continue PT/OT as able Qualifiers: Intestinal obstruction type: other intestinal obstruction Intestinal obstruction extent: partial Qualified Code(s): K56.690 - Other partial intestinal obstruction (2) Leukocytosis Current Visit: Yes Status: Acute Suspect pulm vs urinary in nature. No evidence for concern for abdominal source. See assessment and plan above. Management per primary team Qualifiers: Leukocytosis type: unspecified Qualified Code(s): D72.829 - Elevated white blood cell count, unspecified (3) Mass of colon Current Visit: Yes Status: Resolved See assessment and plan above (4) Dementia Current Visit: Yes Status: Chronic psych following. Management per primary team. See A/P above Will d/c narcotic pain medication in an effort to reduce confusion (noted sitters at bedside and patient in restraints). Qualifiers: Dementia type: unspecified type Dementia behavioral disturbance: without behavioral disturbance Qualified Code(s): F03.90 - Unspecified dementia without behavioral disturbance (5) Protein-calorie malnutrition, moderate Current Visit: Yes Status: Acute Postoperative ileus remains but improving. See a/p above PICC and TPN Subjective Narrative: Remains confused. Unable to obtain subjective information. Although patient does states she is feeling "a little better." Objective Vital Signs - Last 8 Hours Temp Pulse Resp BP Pulse Ox 04/26/18 06:52 98.2 F 99 18 132/82 95 04/26/18 03:45 18 98 04/26/18 03:27 99.7 F H 100 19 122/62 90 04/26/18 00:56 98.2 F 105 20 125/79 95 Intake and Output 04/25/18 04/25/18 04/26/18 15:59 23:59 07:59 Intake Total 200 / 200 595 / 595 350 / 350 Output Total 1850 / 1850 1200 / 1200 1500 / 1500 Balance -1650 / -1650 -605 / -605 -1150 / -1150 Intake: IV Fluids 200 / 200 355 / 355 350 / 350 Intralipid 20% 250 ML @ 21 mls/ 250 / 250 hr IVPB DAILY@1700 [facility] Rx#: [id number] Flagyl Premix 500 MG/100 ML 500 100 / 100 mg In 100 ml @ 100 mls/hr IVPB Q8HR [facility] Rx#:[id number] Zosyn 3.375 GM In 0.9 % Sodium 100 / 100 100 / 100 100 / 100 Chloride (Mini-Bag +) 100 ML @ 25 mls/hr IVPB Q8HR [facility] Rx#: [id number] Potassium Phosphate 22 MEQ In 0 255 / 255 .9 % Sodium Chloride 250 ML @ 40 mls/hr IVPB ONCE ONE Rx#: [id number] Oral 240 / 240 0 / 0 Output: Gastric Tube Lavage Amount 700 / 700 300 / 300 550 / 550 Left Nare 700 / 700 300 / 300 550 / 550 Catheter 1150 / 1150 900 / 900 950 / 950 Other: Meal Dinner Percent of Meal Consumed 100% Weight 87.8 kg Blood Glucose* 113 126 138 - General physical appearance no distress, other (Confused) - ENT atraumatic, normocephalic - Neck Neck exam: trachea midline - Respiratory other (Decreased respiratory effort, decreased breath sounds) - Cardiovascular Cardiovascular exam: Present: RRR - Abdomen Abdomen: Present: bowel sounds present (Hypoactive), soft, non tender, wound ( Colostomy site is with a small amount of bowel sweat) Hernia: none - Incision Incision: Present: clean and dry, intact - Integumentary no rash - Neurologic disoriented - Musculoskeletal other (Generalized weakness noted) - Psychiatric speech is normal - Labs 04/26/18 04:25 04/26/18 04:25 Diabetes panel 04/26/18 04/26/18 Range/Units 04:00 04:25 Sodium 143 (136-145) mEq/L Potassium 2.8 L (3.5-5.1) mEq/L Chloride 111 H (98-107) mEq/L Carbon Dioxide 26 (23-29) mEq/L BUN 8 (8-23) mg/dL Creatinine 0.63 (0.60-1.20) mg/dL Glucose 122 H (70-105) mg/dL Calcium 7.6 L (8.6-10.3) mg/dL Triglycerides 100 (< 150) mg/dL Calcium panel 04/25/18 04/26/18 Range/Units 08:30 04:25 Calcium 7.6 L (8.6-10.3) mg/dL Phosphorus 2.2 L 3.0 (2.7-4.5) mg/dL Pituitary panel 04/26/18 Range/Units 04:25 Sodium 143 (136-145) mEq/L Potassium 2.8 L (3.5-5.1) mEq/L Chloride 111 H (98-107) mEq/L Carbon Dioxide 26 (23-29) mEq/L BUN 8 (8-23) mg/dL Creatinine 0.63 (0.60-1.20) mg/dL Glucose 122 H (70-105) mg/dL Calcium 7.6 L (8.6-10.3) mg/dL Adrenal panel 04/26/18 Range/Units 04:25 Sodium 143 (136-145) mEq/L Potassium 2.8 L (3.5-5.1) mEq/L Chloride 111 H (98-107) mEq/L Carbon Dioxide 26 (23-29) mEq/L BUN 8 (8-23) mg/dL Creatinine 0.63 (0.60-1.20) mg/dL Glucose 122 H (70-105) mg/dL Calcium 7.6 L (8.6-10.3) mg/dL - VTE Documentation of Mechanical Device: Intermittent pneumatic compression device Consult Discharge Plan - Plan Additional Instructions: continue current medications for calm/agitation, and to keep pt comfortable and redirectable Referrals: Albertina Zapien MD [Primary Care Provider] - <Virgil Hernandez - Last Filed: 04/26/18 13:09> Date of Encounter: 04/26/18 Objective Vital Signs - Last 8 Hours Temp Pulse Resp BP Pulse Ox 04/26/18 10:48 98.3 F 100 18 115/83 92 04/26/18 10:01 18 95 04/26/18 06:52 98.2 F 99 18 132/82 95 Intake and Output 04/25/18 04/26/18 04/26/18 23:59 07:59 15:59 Intake Total 595 / 595 350 / 350 Output Total 1200 / 1200 1500 / 1500 900 / 900 Balance -605 / -605 -1150 / -1150 -900 / -900 Intake: IV Fluids 355 / 355 350 / 350 Intralipid 20% 250 ML @ 21 mls/ 250 / 250 hr IVPB DAILY@1700 [facility] Rx#: [id number] Zosyn 3.375 GM In 0.9 % Sodium 100 / 100 100 / 100 Chloride (Mini-Bag +) 100 ML @ 25 mls/hr IVPB Q8HR [facility] Rx#: [id number] Potassium Phosphate 22 MEQ In 0 255 / 255 .9 % Sodium Chloride 250 ML @ 40 mls/hr IVPB ONCE ONE Rx#: [id number] Oral 240 / 240 0 / 0 Output: Urine 400 / 400 Gastric Tube Lavage Amount 300 / 300 550 / 550 500 / 500 Left Nare 300 / 300 550 / 550 500 / 500 Catheter 900 / 900 950 / 950 Other: Meal Dinner NPO BREAKFAST Percent of Meal Consumed 100% Weight 87.8 kg 87.8 kg Blood Glucose* 126 138 178 Patient Weight 04/26/18 23:59 Weight 87.8 kg - Labs 04/26/18 04:25 04/26/18 04:25 Diabetes panel 04/26/18 04/26/18 Range/Units 04:00 04:25 Sodium 143 (136-145) mEq/L Potassium 2.8 L (3.5-5.1) mEq/L Chloride 111 H (98-107) mEq/L Carbon Dioxide 26 (23-29) mEq/L BUN 8 (8-23) mg/dL Creatinine 0.63 (0.60-1.20) mg/dL Glucose 122 H (70-105) mg/dL Calcium 7.6 L (8.6-10.3) mg/dL Triglycerides 100 (< 150) mg/dL Calcium panel 04/26/18 Range/Units 04:25 Calcium 7.6 L (8.6-10.3) mg/dL Phosphorus 3.0 (2.7-4.5) mg/dL Pituitary panel 04/26/18 Range/Units 04:25 Sodium 143 (136-145) mEq/L Potassium 2.8 L (3.5-5.1) mEq/L Chloride 111 H (98-107) mEq/L Carbon Dioxide 26 (23-29) mEq/L BUN 8 (8-23) mg/dL Creatinine 0.63 (0.60-1.20) mg/dL Glucose 122 H (70-105) mg/dL Calcium 7.6 L (8.6-10.3) mg/dL Adrenal panel 04/26/18 Range/Units 04:25 Sodium 143 (136-145) mEq/L Potassium 2.8 L (3.5-5.1) mEq/L Chloride 111 H (98-107) mEq/L Carbon Dioxide 26 (23-29) mEq/L BUN 8 (8-23) mg/dL Creatinine 0.63 (0.60-1.20) mg/dL Glucose 122 H (70-105) mg/dL Calcium 7.6 L (8.6-10.3) mg/dL - Attending Attestation I have personally performed a face to face evaluation on this patient. I have reviewed and agree with the care plan. History and Exam by me shows: The patient is seen and evaluated on morning rounds with the clinical nurse practitioner. The patient has had decreased nasogastric tube output. We will try and get the tube out today by placing the nasogastric tube to Norton bag for drain. Continue TPN Virgil Hernandez MD FACS
[2018-04-26] MEDS ORDERED: Potassium Chloride 40 MEQ, Lidocaine 1% 2 ML in D5% in Water 500 ML IVPB ONE (08:04)
[2018-04-26] MEDS: Piperacillin/Tazobactam 3.375 GM in 0.9 % Sodium Chloride Mini Bag 100 ML IVPB SCH ×2 (09:23→16:02)
[2018-04-26] MEDS: Levothyroxine Sodium 100 MCG VIAL IVP SCH (09:24)
[2018-04-26] MEDS: Pantoprazole 40 MG VIAL IVP SCH (09:24)
[2018-04-26] MEDS: 0.9 % Sodium Chloride 1,000 ML IVC SCH (09:25)
[2018-04-26] MEDS ORDERED: 0.9 % Sodium Chloride 1,000 ML IVC SCH (13:59)
[2018-04-26] MEDS ORDERED: Clinimix E 5%-15% SOLUTION 2,000 ML with MVI, adult with vitamin K 10 ML IVC SCH (17:00)
--- NOTE | 2018-04-26 17:55 | Internal Med Progress Note ---
Date of Encounter: 04/26/18 Time of Encounter: 08:30 - Assessment and plan (1) Ileus following gastrointestinal surgery Current Visit: Yes Status: Acute Assessment and plan: Continues with NG and TPN. Further management per surgical service. (2) Leukocytosis Current Visit: Yes Status: Acute Assessment and plan: WBC about the same. Currently on IV abx. Recheck labs tomorrow. Qualifiers: Leukocytosis type: unspecified Qualified Code(s): D72.829 - Elevated white blood cell count, unspecified (3) Bowel obstruction Current Visit: Yes Status: Acute Assessment and plan: From sigmoid colon mass s/p resection now. Pain management. Qualifiers: Intestinal obstruction type: other intestinal obstruction Intestinal obstruction extent: partial Qualified Code(s): K56.690 - Other partial intestinal obstruction (4) Hypokalemia Current Visit: Yes Status: Resolved Assessment and plan: Low again today. Replace IV today. Continue TPN. (5) Hypophosphatemia Current Visit: Yes Status: Acute Assessment and plan: Continue in TPN. (6) HTN (hypertension) Current Visit: Yes Status: Chronic Assessment and plan: Not taking PO. Continue IV meds for management of BP. Qualifiers: Hypertension type: essential hypertension Qualified Code(s): I10 - Essential (primary) hypertension (7) HLD (hyperlipidemia) Current Visit: Yes Status: Chronic Assessment and plan: Continue home medications when tolerating PO. Qualifiers: Hyperlipidemia type: mixed hyperlipidemia Qualified Code(s): E78.2 - Mixed hyperlipidemia (8) Hypothyroidism Current Visit: Yes Status: Chronic Assessment and plan: Currently on IV supplement. Qualifiers: Hypothyroidism type: acquired Qualified Code(s): E03.9 - Hypothyroidism, unspecified (9) DVT prophylaxis Current Visit: Yes Status: Acute (10) Dementia Current Visit: Yes Status: Chronic Assessment and plan: Sitter in room now. Qualifiers: Dementia type: unspecified type Dementia behavioral disturbance: without behavioral disturbance Qualified Code(s): F03.90 - Unspecified dementia without behavioral disturbance (11) Protein-calorie malnutrition, moderate Current Visit: Yes Status: Acute Assessment and plan: TPN started. Electrolytes to be followed. (12) Hypomagnesemia Current Visit: Yes Status: Acute Assessment and plan: New again today. Replace. (13) Hypocalcemia Current Visit: Yes Status: Acute Assessment and plan: New today. Replace. - Time Spent With Patient Total time spent is greater than 50% in coordination of care (as documented) at patient's floor/unit and/or counseling patient: - Subjective Interval history: Ms Stinson is currently admitted for acute post op ileus following Hartmans procedure for colon mass. She is now on TPN. She remains moderate to high risk due to potential for worsening clinical status. Ms Stinson remains confused and restless at times. No fever though WBC is still high. She did not answer my questions. - Constitutional Vitals: Temp Pulse Resp BP Pulse Ox 98.4 F 100 18 127/80 93 04/26/18 14:00 04/26/18 14:00 04/26/18 16:00 04/26/18 14:00 04/26/18 16:00 General appearance: Present: A&O X 1. Absent: answers questions appropriately - Head Head exam: Present: normocephalic - Eye Eye exam: Present: EOMI, conjuntiva pink - ENT ENT exam: Present: mucous membranes dry - Respiratory Respiratory exam: Present: decreased breath sounds, rhonchi - Cardiovascular Cardiovascular exam: Present: RRR. Absent: tachycardia - GI/Abdominal GI/Abdominal exam: Present: soft - Extremities Exam Extremities exam: Present: warm. Absent: tenderness - Neurological Exam Neurological exam: Present: alert - Skin Skin exam: Present: warm Internal Medicine: Result - Labs CBC & Chem 7: 04/26/18 04:25 04/26/18 04:25 Labs: Short CBC 04/26/18 Range/Units 04:25 WBC 15.7 H (4.3-11.1) K/mcL Hgb 9.8 L (11.5-15.4) g/dL Hct 30.0 L (35.3-44.9) % Plt Count 356 (140-400) K/mcL Neutrophils # 11.6 H (1.6-8.9) K/mcL BMP 04/26/18 04:25 Sodium 143 Potassium 2.8 L Chloride 111 H Carbon Dioxide 26 BUN 8 Creatinine 0.63 Glucose 122 H Calcium 7.6 L - ABG Interpretation ABG results: PT/INR, D-dimer PT 14.2 Seconds (9.4-12.1) H 04/19/18 04:19 - VTE Documentation of Mechanical Device: Intermittent pneumatic compression device Consult Discharge Plan - Plan Additional Instructions: continue current medications for calm/agitation, and to keep pt comfortable and redirectable Referrals: Albertina Zapien MD [Primary Care Provider] -
[2018-04-26] MEDS: Ondansetron 4 MG/2 ML VIAL IVP PRN (22:44)
[2018-04-27] MEDS: Piperacillin/Tazobactam 3.375 GM in 0.9 % Sodium Chloride Mini Bag 100 ML IVPB SCH ×3 (00:15→17:30)
[2018-04-27] MEDS: Insulin LISPRO 300 UNITS/3 ML VIAL SQ SCH ×6 (00:34→20:34)
[2018-04-27] MEDS: Levalbuterol Neb 1.25 MG/3 ML IH PRN ×4 (04:05→20:50)
[2018-04-27] MEDS: Acetylcysteine 10% 2 ML INHSOL IH SCH ×4 (04:05→20:50)
[2018-04-27 04:25] LABS: Basophils # 0.1 K/mcL (0.0-0.2); Basophils % 0.2 %; Eosinophils # 0.2 K/mcL (0.0-0.6); Eosinophils % 0.9 %; Hematocrit 37.8 % (35.3-44.9); Immature Granulocytes % 1.4 % (0-4); Lymphocytes # 1.6 K/mcL (0.6-4.6); Lymphocytes % 7.2 %; Mean Corpuscular HGB Conc 33.1 g/dL (31.6-35.5); Mean Corpuscular Hemoglobin 27.9 pg (28.0-33.3); Mean Corpuscular Volume 84.4 fL (83.0-100.0); Mean Platelet Volume 9.9 fL (9.4-12.4); Monocytes # 1.1 K/mcL (0.0-1.3); Monocytes % 4.9 %; Neutrophils # 18.3 K/mcL (1.6-8.9); Platelet Count 409 K/mcL (140-400); Red Blood Count 4.48 M/mcL (3.82-4.97); Red Cell Distribution Width 14.3 % (11.5-14.5); Segmented Neutrophils % 85.4 %
[2018-04-27 04:26] LABS: Hemoglobin 12.5 g/dL (11.5-15.4)
[2018-04-27 04:27] LABS: BUN/Creatinine Ratio 14 (6-26); Blood Urea Nitrogen 8 mg/dL (8-23); Calcium 7.5 mg/dL (8.6-10.3); Carbon Dioxide 26 mEq/L (23-29); Chloride 105 mEq/L (98-107); Glucose 124 mg/dL (70-105); Magnesium 1.6 mg/dL (1.6-2.6); Osmolality,Calculated 288 (280-300); Phosphorous 3.9 mg/dL (2.7-4.5); Potassium 2.7 mEq/L (3.5-5.1); Sodium 139 mEq/L (136-145); eGFR For African Americans > 60 (> 60); eGFR For Non-African Americans > 60 (> 60)
[2018-04-27] MEDS: *HR* Heparin 5,000 UNIT/ML VIAL SQ SCH ×2 (04:58→17:29)
[2018-04-27] MEDS: Levothyroxine Sodium 100 MCG VIAL IVP SCH (08:43)
[2018-04-27] MEDS: Pantoprazole 40 MG VIAL IVP SCH (08:43)
--- NOTE | 2018-04-27 08:49 | Wound Care Progress Note ---
Date of Encounter: 04/27/18 Time of Encounter: 07:00 Patient Wound Assessment - Vital Signs Temperature: 99.1 F Pulse Rate: 105 Respiratory Rate: 17 Blood Pressure: 112/72 O2 Sat by Pulse Oximetry: 95 Blood Glucose: 141 - Pain Present Pain Present: Unable to Respond - Nutrition Assessment Nutritional Support: Tube Feedings Subjective Narrative: The patient is seen and evaluated on morning rounds. She is not doing well at all. She had vomiting with her nasogastric tube to a Norton bag. Her white blood cell count is elevated at 21,500. Her colostomy is working well and 750 mL was removed last night. She is currently on aggressive broad-spectrum antibiotic therapy. Her overall condition appears to be deteriorating. I have ordered a CAT scan of the abdomen to rule out any possibility of intra- abdominal sepsis. My overall feeling is that this is pulmonary in nature. She continues to not be able to cooperate secondary to dementia. Nasogastric tube will be placed to continuous low wall suction. She had some blood in her nasogastric tube this morning however her hemoglobin and hematocrit are stable. Objective Last Vital Signs Temp 99.1 F 04/27/18 08:43 Pulse 105 04/27/18 08:43 Resp 17 04/27/18 08:43 BP 112/72 04/27/18 08:43 Pulse Ox 95 04/27/18 08:43 - General physical appearance moderate distress, chronically ill, other (Dementia with disorientation) - Cardiac Cardiovascular exam: RRR, no murmurs/rubs/gallops - Respiratory crackles: bilateral, wheezing: bilateral - Abdomen Abdomen: bowel sounds present, soft (Ostomy functioning with 750 mL of output) - Neurologic other (Unresponsive today) - Psychiatric other (Disoriented and unresponsive) - Labs 04/27/18 03:50 04/27/18 03:50 Diabetes panel 04/27/18 Range/Units 03:50 Sodium 139 (136-145) mEq/L Potassium 2.7 L (3.5-5.1) mEq/L Chloride 105 (98-107) mEq/L Carbon Dioxide 26 (23-29) mEq/L BUN 8 (8-23) mg/dL Creatinine 0.59 L (0.60-1.20) mg/dL Glucose 124 H (70-105) mg/dL Calcium 7.5 L (8.6-10.3) mg/dL Calcium panel 04/27/18 Range/Units 03:50 Calcium 7.5 L (8.6-10.3) mg/dL Phosphorus 3.9 (2.7-4.5) mg/dL Pituitary panel 04/27/18 Range/Units 03:50 Sodium 139 (136-145) mEq/L Potassium 2.7 L (3.5-5.1) mEq/L Chloride 105 (98-107) mEq/L Carbon Dioxide 26 (23-29) mEq/L BUN 8 (8-23) mg/dL Creatinine 0.59 L (0.60-1.20) mg/dL Glucose 124 H (70-105) mg/dL Calcium 7.5 L (8.6-10.3) mg/dL Adrenal panel 04/27/18 Range/Units 03:50 Sodium 139 (136-145) mEq/L Potassium 2.7 L (3.5-5.1) mEq/L Chloride 105 (98-107) mEq/L Carbon Dioxide 26 (23-29) mEq/L BUN 8 (8-23) mg/dL Creatinine 0.59 L (0.60-1.20) mg/dL Glucose 124 H (70-105) mg/dL Calcium 7.5 L (8.6-10.3) mg/dL - Assessment and Plan (1) Bowel obstruction Current Visit: Yes Status: Acute The patient is postoperative day 8 from 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 She had Torrez's procedure. Her baseline dementia has made her postoperative recovery difficult. She had vomiting last night. Her white blood cell count is elevated. We will obtain a CAT scan of the abdomen to rule out intra-abdominal sepsis causes. Qualifiers: Intestinal obstruction type: other intestinal obstruction Intestinal obstruction extent: complete Qualified Code(s): K56.691 - Other complete intestinal obstruction Consult Discharge Plan - Plan Additional Instructions: continue current medications for calm/agitation, and to keep pt comfortable and redirectable Referrals: Albertina Zapien MD [Primary Care Provider] -
[2018-04-27] MEDS ORDERED: Potassium Chloride 40 MEQ, Lidocaine 1% 2 ML in D5% in Water 500 ML IVPB ONE (08:51)
[2018-04-27] MEDS ORDERED: Levofloxacin 750 MG/150 ML 750 MG/150 ML BAG IVPB SCH (10:00)
[2018-04-27 10:46] LABS: Bilirubin,Urine Negative (Negative); Blood,Urine Small (Negative); Clarity,Urine Cloudy (Clear); Color,Urine Dark Yellow (Yellow); Glucose,Urine (UA) Normal (Normal); Ketones,Urine Negative (Negative); Leukocyte Esterase,Urine Small (Negative); Nitrite,Urine Negative (Negative); Protein,Urine 100 mg/dL (Neg-Trace); Specific Gravity,Urine > 1.030 (1.010-1.025); Urobilinogen,Urine Normal (Normal)
[2018-04-27 10:48] LABS: Squamous Epithelial Cell,Urine Many per lpf (None-Few); WBC,Urine 50-100 per hpf (0-3)
[2018-04-27 11:04] LABS: Bacteria,Urine Many per hpf (None-Few); Yeast,Urine Many per hpf (None Seen)
[2018-04-27 11:05] LABS: Hyaline Casts,Urine None Seen per lpf (None-Few)
--- NOTE | 2018-04-27 12:13 | Infectious Disease Consult ---
Date of Encounter: 04/27/18 Time of Encounter: 11:00 Assessment and Plan (1) Sepsis Status: Acute Assessment and plan: The patient had three SIRS criteria (tachycardia, leukocytosis, and fever). Etiology unclear: intra-abdominal (peritonitis) vs. pulmonary (pneumonia) vs. non-infectious. The patient did have some spillage of bowel contents into the abdomen intra-op, but CT negative for abscess or fluid collection. She continues to have persistent/worsening leukocytosis and tachycardia. She has been afebrile x 48 hours. Blood culture drawn 04/22/18 is NGTD x 1 set. Repeat blood culture drawn 04/24/18 is NGTD x 1 set. Repeat blood cultures drawn 04/25/18 are NGTD x 2 sets. The patient's mental status makes it very difficult to obtain ROS information from her. CT of the abdomen and pelvis showed findings consistent with ileus and some ascites, but no other acute intra-abdominal process. It did show adjacent consolidation at the lung bases. WBC up to 21 this morning with neutrophilic predominance. Urinalysis negative. Liquid stool noted in the colostomy bag. Based on amount and appearance, low index of suspicion for C. diff. The patient does have a PICC line, but clinically does not appear infected. Surgical incision looks great. Repeat blood cultures x 2 sets now. Check procalcitonin. Check peripheral smear. The patient has had several episodes of emesis making the possibility of aspiration very high. Get CT of the chest to evaluate. Check amylase, lipase, LFTs. The patient does not appear to have any URI symptoms, but may consider checking RIP. If CT chest indicative of PNA, consider checking S. pneumo and Legionella UATs and sputum culture if the patient is able to provide an adequate specimen. Continue Vancomycin IV. Pharmacy to dose. Goal trough ~15. Continue Zosyn 3.375 grams IV Q8H. Start Micafungin 100mg IV daily. Discontinue Levaquin. Monitor renal function and for drug toxicity and dose-adjust antibiotics. Duration of treatment depends on the clinical picture. Qualifiers: Sepsis type: sepsis due to unspecified organism Qualified Code(s): A41.9 - Sepsis, unspecified organism (2) Leukocytosis Status: Acute Assessment and plan: Etiology unclear. Neutrophilic predominance. Workup as above. Qualifiers: Leukocytosis type: unspecified Qualified Code(s): D72.829 - Elevated white blood cell count, unspecified (3) Encephalopathy Status: Acute Assessment and plan: Etiology unclear, but likely multifactorial: sepsis + anesthesia + pain medication +/- other. Unsure of the patient's baseline. Consider CT head to evaluate. (4) Ileus following gastrointestinal surgery Status: Acute Assessment and plan: CT of the abdomen and pelvis completed 04/27/18 showed findings consistent with post-op ileus. Could be contributing to leukocytosis. Management per the surgery team. (5) Mass of colon Status: Resolved Assessment and plan: CT of the abdomen and pelvis completed 04/18/18 showed a suspicious infiltrating mass of the colon with obstruction. Transferred to [facility]. Surgery consulted and following. 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 Operative note reviewed. Pathology negative for malignancy, but did show acute on chronic diverticulosis with abscess and giant cell formation. Post-op care per the general surgery team. (6) Bowel obstruction Status: Acute Assessment and plan: Secondary to colonic mass. Qualifiers: Intestinal obstruction type: other intestinal obstruction Intestinal obstruction extent: complete Qualified Code(s): K56.691 - Other complete intestinal obstruction (7) Hypokalemia Status: Acute Assessment and plan: Replacement per the primary team. (8) HTN (hypertension) Status: Chronic Qualifiers: Hypertension type: essential hypertension Qualified Code(s): I10 - Essential (primary) hypertension (9) HLD (hyperlipidemia) Status: Chronic Qualifiers: Hyperlipidemia type: mixed hyperlipidemia Qualified Code(s): E78.2 - Mixed hyperlipidemia (10) Hypothyroidism Status: Chronic Qualifiers: Hypothyroidism type: acquired Qualified Code(s): E03.9 - Hypothyroidism, unspecified (11) Dementia Status: Chronic Qualifiers: Dementia type: unspecified type Dementia behavioral disturbance: without behavioral disturbance Qualified Code(s): F03.90 - Unspecified dementia without behavioral disturbance Infectious Disease HPI - Data of Consult Patient: new to practice Consult date: 04/27/18 Requesting Physician: Nir Rome DO Primary Care Provider: Albertina Zapien, - Consult Narrative Reason for consult: Leukocytosis History of present illness: Ms. Stinson is a 78 year old female with a past medical history of dementia, hyperlipidemia, hypertension, hypothyroidism, depression, and venous stasis. Patient was admitted to the hospital April 18 for a colon mass. We are consulted April 27 for further recommendations for persistent leukocytosis. Briefly, the patient is a 78-year-old female with past medical history as stated above. The patient's mental status precludes her ability to provide me with much information regarding the events leading up to her hospitalization, therefore, most of the information is obtained from the medical record. There is not currently any family at the bedside. The patient presented to a april at [facility] emergency department on the day of admission with complaints of generalized weakness, abdominal pain, and poor by mouth intake. On arrival to the ER, the patient had tachycardia and leukocytosis with neutrophilic predominance and she was noted to be hypoxic on room air. She has CT abdomen and pelvis with IV and oral contrast that showed a suspicious infiltrating mass of the colon with obstruction. Chest x-ray showed bibasilar atelectasis. Urinalysis was negative for pyuria. She was transferred to the [facility] for further evaluation and treatment. Upon arrival, the patient was evaluated by general surgery. She was taken to the OR on April 18 and underwent a Torrez's procedure and sigmoid colectomy with end colostomy. Review of the operative note reveals that there was some spillage of stool contents into the abdomen. Centimeter mass was removed. Pathology revealed acute on chronic diverticulosis with abscess and giant cell formation. Post-op she was started on IV Cipro and Flagyl. Since surgery, the patient has been confused and pulling her lines and has required soft restraints. Postoperatively, the patient's leukocytosis resolved, but she had persistent tachycardia and redeveloped leukocytosis two days after surgery. On , she was evaluated by [facility] and was noted to have an episode of emesis. There was concern for aspiration. Chest/abdominal xray 04/21/18 showed small bilateral pleural effusions with mild interstitial pulmonary edema and mild RLL opacity concerning for atelectasis vs. PNA. On 04/22, the patient spiked a fever with Tmax 100.9. Her antibiotic coverage was switched from Cipro and flagyl to Levaquin and Flagyl on 04/22. Blood culture drawn 04/22/18 is negative x 1 set. Venous doppler studies of the BLE were negative. Urinalysis was contaminated. Speech therapy was consulted and recommended mechanically altered diet with thin liquids. Her WBC normalized on 04/23. On 04/24, the patient had another fever with Tmax 100.7. The patient had another episode of emesis and NGT was placed and 1 liter of gastric contents were removed. Chest and abdominal x-ray showed a mild post-op ileus and small bilateral pleural effusions with bibasilar atelectasis. Antibiotics were switched to Zosyn and Flagyl. On 04/25, leukocytosis recurred. Additional blood cultures were obtained x 2 sets peripherally and are NGTD. Repeat CXR showed improved aeration of the right lung base without definite infiltrate. Urinalysis was obtained via rios catheter and was negative, but patient had a 1200ml of urine in her bladder. The patient had a PICC line placed on 04/25 and TPN was started. Vancomycin was added to the antibiotic regimen. Levaquin was added this morning as well. The patient continues to have intermittent episodes of vomiting despite NGT to straight drain, so LIWS was started this morning. According to the staff, she also had grossly bloody drainage from her NGT this morning and surgery is aware. CT of the abdomen and pelvis this morning shows findings consistent with ileus, a focal nodule on the left kidney, and adjacent consolidation of the bilateral lung bases. She has been afebrile since 04/25, but her WBC has continued to worsen and she continues to have altered mental status and tachycardia. During my exam today, the patient is unable to provide with any ROS information other than she is not currently having any pain. She does not follow commands or answer any questions. CC: Nir Rome, DO Past Med Surg Social Fam HX - Past Medical History Source: old records reviewed, nursing notes reviewed Medical history: hyperlipidemia, hypertension, thyroid disease, venous stasis, other (Dementia) Psychiatric history: other - Past Surgical History Surgical History: no surgical history - Social History Smoking Status: Never smoker Smokeless Tobacco Status: No Alcohol use: none Drug use: none Infectious Disease-CN:Meds Aspirin [Lo-Dose Aspirin EC] 81 mg PO DAILY 04/18/18 [History] Citalopram [CeleXA] 30 mg PO DAILY 04/18/18 [History] Donepezil HCl [Aricept] 10 mg PO HS 04/18/18 [History] Levothyroxine [Synthroid] 100 mcg PO DAILY 04/18/18 [History] Lisinopril-HCTZ 10-12.5 [Prinzide 10-12.5] 1 each PO DAILY 04/18/18 [History] Potassium Chloride [K-Tab ER] 20 meq PO DAILY 04/18/18 [History] Simvastatin [Zocor] 20 mg PO DAILY 04/18/18 [History] 3 Allergy/AdvReac Type Severity Reaction Status Date / Time No Known Allergies Allergy Verified 04/20/17 08:49 ROS unobtainable: due to mental status Exam - Constitutional Vitals: Temp Pulse Resp BP Pulse Ox 99.1 F 105 18 112/72 94 04/27/18 08:50 04/27/18 08:50 04/27/18 10:34 04/27/18 08:50 04/27/18 10:34 General appearance: no acute distress, obese, no febrile - Head Head exam: Present: atraumatic, normal inspection, normocephalic - Eye Additional comments: Patient refuses to open eyes and resists passive opening. She does not follow commands to assess EOMs. - ENT Additional comments: Unable to assess. Patient refuses. - Neck Neck exam: Present: normal inspection - Respiratory Respiratory exam: Present: decreased breath sounds (Bilateral bases). Absent: rales, respiratory distress, rhonchi - Cardiovascular Cardiovascular exam: Present: +S1, +S2, tachycardia. Absent: irregular rhythm - GI/Abdominal GI/Abdominal exam: Present: normal bowel sounds, soft, tenderness (Generalized) . Absent: distended Additional comments: Midline abdominal incision with waleska intact and wound edges well- approximated. Colostomy noted to the LLQ with small amount of dark green/brown liquid stool noted in the bag. Rios catheter noted to be draining dark yellow urine. NGT to LIWS with small amount of dark green drainage noted. - Extremities Exam Extremities exam: Absent: joint swelling, pedal edema, tenderness - Neurological Exam Neurological exam: Present: altered. Absent: oriented X3 Additional comments: Does not follow commands consistently. Opens eyes some to verbal stimuli. Moves all extremities simultaneously, but not on command. - Skin Skin exam: Present: dry, intact, normal color, warm - Additional findings Additional findings: PICC line noted to the RUE with transparent dressing C/D/I. No erythema, warmth , drainage, or tenderness noted. Infectious Disease CN: Results - Labs CBC & Chem 7: 04/27/18 03:50 04/27/18 03:50 Cultures: Cultures 04/22/18 08:24 Blood Culture - Final Peripheral Venipuncture No growth. Final report. 04/25/18 07:55 Blood Culture - Preliminary Peripheral Venipuncture Culture is incubating and being continuously monitored for growth. Final report to follow. 04/25/18 07:57 Blood Culture - Preliminary Peripheral Venipuncture Culture is incubating and being continuously monitored for growth. Final report to follow. 04/24/18 05:27 Blood Culture - Preliminary Peripheral Venipuncture Culture is incubating and being continuously monitored for growth. Final report to follow. Serology: Serology 04/27/18 04/25/18 04/22/18 Range/Units 10:35 08:10 09:16 Urine Color Dark Yellow Yellow Dark Yellow (Yellow) Urine Clarity Cloudy A Clear Clear (Clear) Urine pH 6.0 6.0 5.5 (5.0-8.0) pH Units Ur Specific Reading > 1.030 H 1.019 > 1.030 H (1.010-1.025) Urine Protein 100 H Negative Trace (Neg-Trace) mg/dL Urine Glucose (UA) Normal Normal Normal (Normal) mg/dL Urine Ketones Negative Trace H 15 H (Negative) mg/dL Urine Blood Small H Negative Negative (Negative) Urine Nitrite Negative Negative Positive A (Negative) Urine Bilirubin Negative Negative Negative (Negative) Urine Urobilinogen Normal Normal Normal (Normal) mg/dL Ur Leukocyte Esterase Small H Negative Trace H (Negative) Urine Microscopic RBC 3-5 H 5-15 H (0-3) per hpf Urine Microscopic WBC 50-100 H 0-3 (0-3) per hpf Ur Squamous Epith Cells Many H Many H (None-Few) per lpf Urine Bacteria Many H None Seen (None-Few) per hpf Hyaline Casts None Seen None Seen (None-Few) per lpf Urine Yeast Many H (None Seen) per hpf Ur Culture Indicated? NO. A (NO) - VTE Documentation of Mechanical Device: Intermittent pneumatic compression device Consult Discharge Plan - Plan Additional Instructions: continue current medications for calm/agitation, and to keep pt comfortable and redirectable Referrals: Albertina Huerta MD [Primary Care Provider] - - Attending Attestation I examined this patient and my medical decision-making was reviewed with the Resident Physician. I agree with the documented findings, disposition and treatment plan as described except to the extent set forth below. This is an addendum to original report dictated by [place] Rolon CNP. Please refer to [place]'s note for full details. Patient is a 78-year-old woman who is unable to give me any history so most of the information was taken from medical records who has a history of dementia, hyperlipidemia, hypertension, hypothyroidism was admitted to [place] on 04/18 for colon mass. We are consulted on 04/27 for persistent leukocytosis. Patient was taken to the OR on 04/18 where she underwent a Torrez's procedure and sigmoid colectomy with end colostomy. Op note mentions some spillage of stool continent of the abdomen. 4 cm mass was resected and sent to pathology. Pathology was negative for malignancy. Patient's pulse op was treated with Flagyl and Cipro and her leukocytosis resolved. Patient on 04/22 spiked a low- grade temperature of 100.9 Fahrenheit. Workup was nonrevealing at that time. Patient continued to have fever and antibiotics were switched to Zosyn and Flagyl. Patient's symptoms not improved continues to be very confused requiring 4. restraint going on her INR. TPN was started. We were asked to evaluate the patient and make further recommendations. Assessment and plan: 1-sepsis 2 -persistent leukocytosis 3 - encephalopathy 4-ileus 5 - mass of colon 6-bowel obstruction 7-possible aspiration pneumonia Recommendations: I am not sure where the persistent leukocytosis coming from or if this is due to infection versus reactive versus leukemoid area Possible sources including urine versus intra-abdominal versus pulmonary. Could also possibly be due to central line associated infection but very unlikely since the patient said fever and leukocytosis prior to central line placement. Patient is already on broad-spectrum antibiotics. We will continue. Add antifungal element since the patient had perforated viscus intraoperatively and had some spillage into the intra-abdominal cavity. Await blood cultures and urine cultures to finalize Check procalcitonin and peripheral smear Check inflammatory markers
[2018-04-27 15:56] LABS: Albumin 2.2 g/dL (3.5-5.7); Albumin/Globulin Ratio 0.8 (1.1-2.2); Bilirubin,Direct 0.2 mg/dL (0.0-0.2); Bilirubin,Indirect 0.2 mg/dL (0.0-1.2); Bilirubin,Total 0.4 mg/dL (0.3-1.0); Globulin 2.6 g/dL (2.4-3.5); Total Protein 4.8 g/dL (6.4-8.9)
[2018-04-27] MEDS ORDERED: Clinimix E 5%-15% SOLUTION 2,000 ML with MVI, adult with vitamin K 10 ML IVC SCH (17:00)
[2018-04-27] MEDS: Acetaminophen IV 1,000 MG/100 ML INFUS..BTL IVPB PRN (17:28)
--- NOTE | 2018-04-27 18:56 | Internal Med Progress Note ---
Date of Encounter: 04/27/18 Time of Encounter: 16:45 - Assessment and plan (1) Ileus following gastrointestinal surgery Current Visit: Yes Status: Acute Assessment and plan: Continues with NG and TPN. Further management per surgical service. Had CT earlier today. (2) Leukocytosis Current Visit: Yes Status: Acute Assessment and plan: WBC increased today. On IV abx. Will ask ID for input regarding possible sources. Qualifiers: Leukocytosis type: unspecified Qualified Code(s): D72.829 - Elevated white blood cell count, unspecified (3) Bowel obstruction Current Visit: Yes Status: Acute Assessment and plan: From sigmoid colon mass s/p resection now. Pain management. Qualifiers: Intestinal obstruction type: other intestinal obstruction Intestinal obstruction extent: complete Qualified Code(s): K56.691 - Other complete intestinal obstruction (4) Hypokalemia Current Visit: Yes Status: Acute Assessment and plan: Low again today. Replace IV today again. Continue TPN. (5) HTN (hypertension) Current Visit: Yes Status: Chronic Assessment and plan: Not taking PO. Continue IV meds for management of BP. Qualifiers: Hypertension type: essential hypertension Qualified Code(s): I10 - Essential (primary) hypertension (6) HLD (hyperlipidemia) Current Visit: Yes Status: Chronic Assessment and plan: Continue home medications when tolerating PO. Qualifiers: Hyperlipidemia type: mixed hyperlipidemia Qualified Code(s): E78.2 - Mixed hyperlipidemia (7) Hypothyroidism Current Visit: Yes Status: Chronic Assessment and plan: Currently on IV supplement. Qualifiers: Hypothyroidism type: acquired Qualified Code(s): E03.9 - Hypothyroidism, unspecified (8) DVT prophylaxis Current Visit: Yes Status: Acute (9) Dementia Current Visit: Yes Status: Chronic Assessment and plan: Sitter in room now. Qualifiers: Dementia type: unspecified type Dementia behavioral disturbance: without behavioral disturbance Qualified Code(s): F03.90 - Unspecified dementia without behavioral disturbance (10) Protein-calorie malnutrition, moderate Current Visit: Yes Status: Acute Assessment and plan: TPN started. Electrolytes to be followed. (11) Hypomagnesemia Current Visit: Yes Status: Acute Assessment and plan: Monitoring at this time. (12) Hypocalcemia Current Visit: Yes Status: Acute - Time Spent With Patient Total time spent is greater than 50% in coordination of care (as documented) at patient's floor/unit and/or counseling patient: - Subjective Interval history: Ms Stinson is currently admitted for acute post op ileus following Hartmans procedure for colon mass. She is now on TPN. She remains moderate to high risk due to potential for worsening clinical status. Ms Stinson becomes more agitated in evening. WBC increasing. No fever. Otherwise does not answer questions. - Constitutional Vitals: Temp Pulse Resp BP Pulse Ox 99.5 F 91 16 110/74 95 04/27/18 17:06 04/27/18 17:06 04/27/18 17:06 04/27/18 17:06 04/27/18 17:06 General appearance: Present: A&O X 1. Absent: answers questions appropriately - Head Head exam: Present: normocephalic - Eye Eye exam: Present: conjuntiva pink - ENT ENT exam: Present: mucous membranes dry - Respiratory Respiratory exam: Present: rhonchi - Cardiovascular Cardiovascular exam: Present: RRR. Absent: tachycardia - GI/Abdominal GI/Abdominal exam: Present: hypoactive bowel sounds, soft - Extremities Exam Extremities exam: Present: warm - Neurological Exam Neurological exam: Present: alert - Skin Skin exam: Present: dry, warm Internal Medicine: Result - Labs CBC & Chem 7: 04/27/18 03:50 04/27/18 03:50 Labs: Short CBC 04/27/18 Range/Units 03:50 WBC 21.4 H (4.3-11.1) K/mcL Hgb 12.5 D (11.5-15.4) g/dL Hct 37.8 (35.3-44.9) % Plt Count 409 H (140-400) K/mcL Neutrophils # 18.3 H (1.6-8.9) K/mcL BMP 04/27/18 03:50 Sodium 139 Potassium 2.7 L Chloride 105 Carbon Dioxide 26 BUN 8 Creatinine 0.59 L Glucose 124 H Calcium 7.5 L Liver Function 04/27/18 Range/Units 14:45 Total Bilirubin 0.4 (0.3-1.0) mg/dL Direct Bilirubin 0.2 (0.0-0.2) mg/dL AST 16 (13-39) Units/L ALT 13 (7-52) Units/L Alkaline Phosphatase 54 (34-104) Units/L Albumin 2.2 L (3.5-5.7) g/dL Urine 04/27/18 Range/Units 10:35 Urine Color Dark Yellow (Yellow) Urine Clarity Cloudy A (Clear) Urine pH 6.0 (5.0-8.0) pH Units Ur Specific Walker > 1.030 H (1.010-1.025) Urine Protein 100 H (Neg-Trace) mg/dL Urine Glucose (UA) Normal (Normal) mg/dL - ABG Interpretation ABG results: PT/INR, D-dimer PT 14.2 Seconds (9.4-12.1) H 04/19/18 04:19 - Impressions Impressions Abdomen/Pelvis CT 04/27/18 07:59 IMPRESSION: Interval placement of left lower quadrant ostomy. Scattered dilated loops of small and large bowel are seen. No definite transition point is seen, favoring ileus over obstruction. Small bilateral pleural effusions, suggesting fluid overload. Scattered abdominal and pelvic ascites, most commonly secondary to fluid overload. Sterility of the fluid however is technically indeterminate by imaging. The amount of fluid seen is likely insufficient for paracentesis Cholelithiasis. Fluid in the bladder appears somewhat hyperdense. This could be artifactual or secondary to blood or proteinaceous debris. Recommend correlation with urinalysis Focal nodule projects medially off the left kidney, not clearly a simple cyst. Consider renal ultrasound Healing sacral insufficiency fractures D/ / Xavi Baum MD / Xavi Baum MD Interpreting Provider: Xavi Baum MD - VTE Documentation of Mechanical Device: Intermittent pneumatic compression device Consult Discharge Plan - Plan Additional Instructions: continue current medications for calm/agitation, and to keep pt comfortable and redirectable Referrals: Albertina Huerta MD [Primary Care Provider] -
[2018-04-27] MEDS: Micafungin 100 MG in 0.9 % Sodium Chloride Mini Bag 100 ML IVPB SCH (20:45)
[2018-04-27] MEDS: *HR* LORazepam 2 MG/ML VIAL IVP PRN (22:10)
[2018-04-28] MEDS: Piperacillin/Tazobactam 3.375 GM in 0.9 % Sodium Chloride Mini Bag 100 ML IVPB SCH ×3 (00:29→16:56)
[2018-04-28] MEDS: Insulin LISPRO 300 UNITS/3 ML VIAL SQ SCH ×6 (00:37→21:09)
[2018-04-28 04:22] LABS: Basophils % 0.1 %; Eosinophils # 0.3 K/mcL (0.0-0.6); Eosinophils % 1.5 %; Hematocrit 31.5 % (35.3-44.9); Immature Granulocytes % 1.4 % (0-4); Lymphocytes # 1.6 K/mcL (0.6-4.6); Lymphocytes % 8.2 %; Mean Corpuscular HGB Conc 33.7 g/dL (31.6-35.5); Mean Corpuscular Hemoglobin 28.6 pg (28.0-33.3); Mean Corpuscular Volume 84.9 fL (83.0-100.0); Mean Platelet Volume 9.7 fL (9.4-12.4); Monocytes # 1.3 K/mcL (0.0-1.3); Monocytes % 6.8 %; Neutrophils # 16.2 K/mcL (1.6-8.9); Platelet Count 323 K/mcL (140-400); Red Blood Count 3.71 M/mcL (3.82-4.97); Red Cell Distribution Width 14.3 % (11.5-14.5)
[2018-04-28 04:29] LABS: Hemoglobin 10.6 g/dL (11.5-15.4)
[2018-04-28 04:40] LABS: BUN/Creatinine Ratio 16 (6-26); Blood Urea Nitrogen 17 mg/dL (8-23); Calcium 7.4 mg/dL (8.6-10.3); Carbon Dioxide 25 mEq/L (23-29); Chloride 107 mEq/L (98-107); Glucose 109 mg/dL (70-105); Magnesium 1.6 mg/dL (1.6-2.6); Osmolality,Calculated 290 (280-300); Phosphorous 3.3 mg/dL (2.7-4.5); Potassium 2.7 mEq/L (3.5-5.1); Sodium 139 mEq/L (136-145); eGFR For African Americans > 60 (> 60); eGFR For Non-African Americans 51 (> 60)
[2018-04-28] MEDS: *HR* Heparin 5,000 UNIT/ML VIAL SQ SCH ×2 (05:43→17:00)
--- NOTE | 2018-04-28 10:22 | Infectious Disease Progress No ---
Date of Encounter: 04/28/18 Time of Encounter: 10:19 - Assessment and Plan (1) Sepsis Current Visit: Yes Status: Acute The patient had three SIRS criteria (tachycardia, leukocytosis, and fever). Etiology unclear: intra-abdominal (peritonitis) vs. pulmonary (pneumonia) vs. non-infectious. The patient did have some spillage of bowel contents into the abdomen intra-op, but CT negative for abscess or fluid collection. She continues to have persistent leukocytosis, but appears to be trending down today. She continues to have persistent tachycardia. She has been afebrile x 48 hours. Blood culture drawn 04/22/18 is negative x 1 set. Repeat blood culture drawn 04/24/18 is NGTD x 1 set. Repeat blood cultures drawn 04/25/18 are NGTD x 2 sets. Additional blood cultures drawn 04/27/18 are pending x 2 sets. The patient's mental status makes it very difficult to obtain ROS information from her. CT of the abdomen and pelvis showed findings consistent with ileus and some ascites, but no other acute intra-abdominal process. It did show adjacent consolidation at the lung bases. CT chest shows bilateral upper lobe nodular opacities, concerning for infectious process. Urinalysis negative. The patient does have a PICC line, but clinically does not appear infected. Surgical incision looks great. Check procalcitonin. --> pending. Check peripheral smear. --> pending. Amylase and lipase elevated, but abdominal exam benign and CT negative for pancreatitis. The patient does not appear to have any URI symptoms. S. pneumo and Legionella UATs negative. Continue Vancomycin IV. Pharmacy to dose. Goal trough ~15. Continue Zosyn 3.375 grams IV Q8H. Continue Micafungin 100mg IV daily. Monitor renal function and for drug toxicity and dose-adjust antibiotics. Duration of treatment depends on the clinical picture. Qualifiers: Sepsis type: sepsis due to unspecified organism Qualified Code(s): A41.9 - Sepsis, unspecified organism (2) Leukocytosis Current Visit: Yes Status: Acute Etiology unclear. Neutrophilic predominance. Improved this morning. Workup as above. Qualifiers: Leukocytosis type: unspecified Qualified Code(s): D72.829 - Elevated white blood cell count, unspecified (3) Abnormal CT scan, chest Current Visit: Yes Status: Acute CT of the chest completed 04/27/18 shows moderate bilateral pleural effusions with bibasilar lung opacities likely representing atelectasis. It also shows upper lob sub-solid nodular opacities that are suspected to be infectious. Recommend pulmonary to evaluate. (4) Encephalopathy Current Visit: Yes Status: Acute Etiology unclear, but likely multifactorial: sepsis + anesthesia + pain medication +/- other. Unsure of the patient's baseline. (5) Ileus following gastrointestinal surgery Current Visit: Yes Status: Acute CT of the abdomen and pelvis completed 04/27/18 showed findings consistent with post-op ileus. Could be contributing to leukocytosis. Management per the surgery team. (6) Mass of colon Current Visit: Yes Status: Resolved CT of the abdomen and pelvis completed 04/18/18 showed a suspicious infiltrating mass of the colon with obstruction. Transferred to [facility]. Surgery consulted and following. 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 Operative note reviewed. Pathology negative for malignancy, but did show acute on chronic diverticulosis with abscess and giant cell formation. Post-op care per the general surgery team. (7) Bowel obstruction Current Visit: Yes Status: Acute Secondary to colonic mass. Resolved. Qualifiers: Intestinal obstruction type: other intestinal obstruction Intestinal obstruction extent: complete Qualified Code(s): K56.691 - Other complete intestinal obstruction (8) Hypokalemia Current Visit: Yes Status: Acute Replacement per the primary team. (9) HTN (hypertension) Current Visit: Yes Status: Chronic Qualifiers: Hypertension type: essential hypertension Qualified Code(s): I10 - Essential (primary) hypertension (10) HLD (hyperlipidemia) Current Visit: Yes Status: Chronic Qualifiers: Hyperlipidemia type: mixed hyperlipidemia Qualified Code(s): E78.2 - Mixed hyperlipidemia (11) Hypothyroidism Current Visit: Yes Status: Chronic Qualifiers: Hypothyroidism type: acquired Qualified Code(s): E03.9 - Hypothyroidism, unspecified (12) Dementia Current Visit: Yes Status: Chronic Qualifiers: Dementia type: unspecified type Dementia behavioral disturbance: without behavioral disturbance Qualified Code(s): F03.90 - Unspecified dementia without behavioral disturbance - Subjective Interval history: Patient seen and examined. No acute events noted overnight. Patient more awake this morning, but appears restless and agitated and not able to provide ROS information. Per the sitter at bedside, patient very restless overnight and attempts to pull lines and colostomy bag when unrestrained. No more vomiting noted this morning. Infect Dis PN-Objective Data - Labs CBC & Chem 7: 04/29/18 10:20 04/29/18 03:15 Labs: Laboratory Results - last 24 hr 04/26/18 04/27/18 04/27/18 20:11 08:48 10:35 WBC RBC Hgb Hct MCV MCH MCHC RDW Plt Count MPV Immature Gran % Seg Neutrophils % Lymphocytes % Monocytes % Eosinophils % Basophils % Neutrophils # Lymphocytes # Monocytes # Eosinophils # Basophils # Smear Path Review Sodium Potassium Chloride Carbon Dioxide BUN Creatinine Est GFR ( Amer) Est GFR (Non-Af Amer) BUN/Creatinine Ratio Glucose POC Glucose 116 H 133 H Calculated Osmolality Calcium Phosphorus Magnesium Total Bilirubin Direct Bilirubin Indirect Bilirubin AST ALT Alkaline Phosphatase Serum Total Protein Albumin Globulin Albumin/Globulin Ratio Amylase Lipase Urine Color Dark Yellow Urine Clarity Cloudy A Urine pH 6.0 Ur Specific [place] > 1.030 H Urine Protein 100 H Urine Glucose (UA) Normal Urine Ketones Negative Urine Blood Small H Urine Nitrite Negative Urine Bilirubin Negative Urine Urobilinogen Normal Ur Leukocyte Esterase Small H Urine Microscopic RBC 3-5 H Urine Microscopic WBC 50-100 H Ur Squamous Epith Cells Many H Urine Bacteria Many H Hyaline Casts None Seen Urine Yeast Many H Vancomycin Trough 04/27/18 04/27/18 04/27/18 12:46 14:45 16:10 WBC RBC Hgb Hct MCV MCH MCHC RDW Plt Count MPV Immature Gran % Seg Neutrophils % Lymphocytes % Monocytes % Eosinophils % Basophils % Neutrophils # Lymphocytes # Monocytes # Eosinophils # Basophils # Smear Path Review See Below Sodium Potassium Chloride Carbon Dioxide BUN Creatinine Est GFR ( Amer) Est GFR (Non-Af Amer) BUN/Creatinine Ratio Glucose POC Glucose 137 H Calculated Osmolality Calcium Phosphorus Magnesium Total Bilirubin 0.4 Direct Bilirubin 0.2 Indirect Bilirubin 0.2 AST 16 ALT 13 Alkaline Phosphatase 54 Serum Total Protein 4.8 L Albumin 2.2 L Globulin 2.6 Albumin/Globulin Ratio 0.8 L Amylase 111 H Lipase 130 H Urine Color Urine Clarity Urine pH Ur Specific [place] Urine Protein Urine Glucose (UA) Urine Ketones Urine Blood Urine Nitrite Urine Bilirubin Urine Urobilinogen Ur Leukocyte Esterase Urine Microscopic RBC Urine Microscopic WBC Ur Squamous Epith Cells Urine Bacteria Hyaline Casts Urine Yeast Vancomycin Trough 6 04/27/18 04/27/18 04/27/18 16:55 20:23 23:55 WBC RBC Hgb Hct MCV MCH MCHC RDW Plt Count MPV Immature Gran % Seg Neutrophils % Lymphocytes % Monocytes % Eosinophils % Basophils % Neutrophils # Lymphocytes # Monocytes # Eosinophils # Basophils # Smear Path Review Sodium Potassium Chloride Carbon Dioxide BUN Creatinine Est GFR ( Amer) Est GFR (Non-Af Amer) BUN/Creatinine Ratio Glucose POC Glucose 114 H 122 H 111 H Calculated Osmolality Calcium Phosphorus Magnesium Total Bilirubin Direct Bilirubin Indirect Bilirubin AST ALT Alkaline Phosphatase Serum Total Protein Albumin Globulin Albumin/Globulin Ratio Amylase Lipase Urine Color Urine Clarity Urine pH Ur Specific [place] Urine Protein Urine Glucose (UA) Urine Ketones Urine Blood Urine Nitrite Urine Bilirubin Urine Urobilinogen Ur Leukocyte Esterase Urine Microscopic RBC Urine Microscopic WBC Ur Squamous Epith Cells Urine Bacteria Hyaline Casts Urine Yeast Vancomycin Trough 04/28/18 04/28/18 04/28/18 04:00 04:00 04:06 WBC 19.8 H RBC 3.71 L Hgb 10.6 L D Hct 31.5 L MCV 84.9 MCH 28.6 MCHC 33.7 RDW 14.3 Plt Count 323 MPV 9.7 Immature Gran % 1.4 Seg Neutrophils % 82.0 Lymphocytes % 8.2 Monocytes % 6.8 Eosinophils % 1.5 Basophils % 0.1 Neutrophils # 16.2 H Lymphocytes # 1.6 Monocytes # 1.3 Eosinophils # 0.3 Basophils # 0.0 Smear Path Review Sodium 139 Potassium 2.7 L Chloride 107 Carbon Dioxide 25 BUN 17 Creatinine 1.05 Est GFR ( Amer) > 60 Est GFR (Non-Af Amer) 51 L BUN/Creatinine Ratio 16 Glucose 109 H POC Glucose 113 H Calculated Osmolality 290 Calcium 7.4 L Phosphorus 3.3 Magnesium 1.6 Total Bilirubin Direct Bilirubin Indirect Bilirubin AST ALT Alkaline Phosphatase Serum Total Protein Albumin Globulin Albumin/Globulin Ratio Amylase Lipase Urine Color Urine Clarity Urine pH Ur Specific [place] Urine Protein Urine Glucose (UA) Urine Ketones Urine Blood Urine Nitrite Urine Bilirubin Urine Urobilinogen Ur Leukocyte Esterase Urine Microscopic RBC Urine Microscopic WBC Ur Squamous Epith Cells Urine Bacteria Hyaline Casts Urine Yeast Vancomycin Trough 04/28/18 08:08 WBC RBC Hgb Hct MCV MCH MCHC RDW Plt Count MPV Immature Gran % Seg Neutrophils % Lymphocytes % Monocytes % Eosinophils % Basophils % Neutrophils # Lymphocytes # Monocytes # Eosinophils # Basophils # Smear Path Review Sodium Potassium Chloride Carbon Dioxide BUN Creatinine Est GFR ( Amer) Est GFR (Non-Af Amer) BUN/Creatinine Ratio Glucose POC Glucose 114 H Calculated Osmolality Calcium Phosphorus Magnesium Total Bilirubin Direct Bilirubin Indirect Bilirubin AST ALT Alkaline Phosphatase Serum Total Protein Albumin Globulin Albumin/Globulin Ratio Amylase Lipase Urine Color Urine Clarity Urine pH Ur Specific [place] Urine Protein Urine Glucose (UA) Urine Ketones Urine Blood Urine Nitrite Urine Bilirubin Urine Urobilinogen Ur Leukocyte Esterase Urine Microscopic RBC Urine Microscopic WBC Ur Squamous Epith Cells Urine Bacteria Hyaline Casts Urine Yeast Vancomycin Trough Cultures: Cultures 04/27/18 10:29 Legionella Antigen - Final Urine,[place] Streptococcus pneumoniae Antigen (M - Final 04/27/18 16:10 Blood Culture - Preliminary Peripheral Venipuncture Culture is incubating and being continuously monitored for growth. Final report to follow. 04/27/18 16:10 Blood Culture - Preliminary Peripheral Venipuncture Culture is incubating and being continuously monitored for growth. Final report to follow. 04/22/18 08:24 Blood Culture - Final Peripheral Venipuncture No growth. Final report. 04/25/18 07:55 Blood Culture - Preliminary Peripheral Venipuncture Culture is incubating and being continuously monitored for growth. Final report to follow. 04/25/18 07:57 Blood Culture - Preliminary Peripheral Venipuncture Culture is incubating and being continuously monitored for growth. Final report to follow. 04/24/18 05:27 Blood Culture - Preliminary Peripheral Venipuncture Culture is incubating and being continuously monitored for growth. Final report to follow. Serology 04/27/18 04/25/18 04/22/18 Range/Units 10:35 08:10 09:16 Urine Color Dark Yellow Yellow Dark Yellow (Yellow) Urine Clarity Cloudy A Clear Clear (Clear) Urine pH 6.0 6.0 5.5 (5.0-8.0) pH Units Ur Specific [place] > 1.030 H 1.019 > 1.030 H (1.010-1.025) Urine Protein 100 H Negative Trace (Neg-Trace) mg/dL Urine Glucose (UA) Normal Normal Normal (Normal) mg/dL Urine Ketones Negative Trace H 15 H (Negative) mg/dL Urine Blood Small H Negative Negative (Negative) Urine Nitrite Negative Negative Positive A (Negative) Urine Bilirubin Negative Negative Negative (Negative) Urine Urobilinogen Normal Normal Normal (Normal) mg/dL Ur Leukocyte Esterase Small H Negative Trace H (Negative) Urine Microscopic RBC 3-5 H 5-15 H (0-3) per hpf Urine Microscopic WBC 50-100 H 0-3 (0-3) per hpf Ur Squamous Epith Cells Many H Many H (None-Few) per lpf Urine Bacteria Many H None Seen (None-Few) per hpf Hyaline Casts None Seen None Seen (None-Few) per lpf Urine Yeast Many H (None Seen) per hpf Ur Culture Indicated? NO. A (NO) - Impressions Impressions Chest CT 04/27/18 15:37 IMPRESSION: Motion limited study. Moderate bilateral pleural effusions. Associated bibasilar lung opacities likely represent atelectasis. Upper lobe sub solid nodular opacities measuring up to 23 mm are suspected to be infectious; however, recommend follow up based on guidelines below. RECOMMENDATIONS: Fleischner Society guidelines for follow-up and management of incidentally detected subsolid pulmonary nodules: Multiple subsolid nodules < 6 mm - [address] at 3-6 months. If stable, consider CT at 2 and 4 years. > than or equal to 6 mm - CT at 3-6 months. Subsequent management based on the most suspicious nodule(s). - Low risk patients include individuals with minimal or absent history of smoking and other known risk factors. - High risk patients include individuals with a history or smoking or known risk factors. Radiology 2017 http://pubs.[facility]na.org/doi/full/[email or web address] D/ / 04/27/2018 20:01:05 Abdirizak Das MD / pro Interpreting Provider: Abdirizak Das MD Exam - Constitutional Vitals: Temp Pulse Resp BP Pulse Ox 100.0 F H 93 18 119/79 97 04/28/18 10:05 04/28/18 10:05 04/28/18 10:05 04/28/18 10:05 04/28/18 10:05 General appearance: average body habitus, no acute distress, no cooperative - Head Head exam: Present: atraumatic, normal inspection, normocephalic - Eye Additional comments: Unable to assess due to patient refusal. Resists passive eye opening. - ENT Additional comments: Unable to assess. Patient refuses to open her mouth. - Neck Neck exam: Present: normal inspection - Respiratory Respiratory exam: Present: decreased breath sounds (Throughout). Absent: rales , respiratory distress, rhonchi, wheezes Additional comments: Moist cough noted on exam. - Cardiovascular Cardiovascular exam: Present: tachycardia. Absent: irregular rhythm - GI/Abdominal GI/Abdominal exam: Present: normal bowel sounds, soft. Absent: distended, tenderness Additional comments: Midline abdominal incision dressing C/D/I. Colostomy noted to the LLQ with flat, beefy red stoma. Moderate amount of dark green liquid noted in the collection bag. [place] catheter noted to be draining dark yellow urine. NGT to LIWS with moderate amount of dark green liquid drainage. - Extremities Exam Extremities exam: Present: normal inspection. Absent: joint swelling, pedal edema, tenderness - Neurological Exam Neurological exam: Present: altered (Awake, does not follow commands or answer questions.), no focal deficits (MAHMOOD x4 spontaneously). Absent: facial droop - Psychiatric Psychiatric exam: Present: agitated - Skin Skin exam: Present: dry, intact, normal color, warm - VTE Documentation of Mechanical Device: Intermittent pneumatic compression device Consult Discharge Plan - Plan Additional Instructions: continue current medications for calm/agitation, and to keep pt comfortable and redirectable Referrals: Albertina Huerta MD [Primary Care Provider] - - Attending Attestation I examined this patient and my medical decision-making was reviewed with the Resident Physician. I agree with the documented findings, disposition and treatment plan as described except to the extent set forth below.
[2018-04-28] MEDS: Micafungin 100 MG in 0.9 % Sodium Chloride Mini Bag 100 ML IVPB SCH (11:06)
[2018-04-28] MEDS: Pantoprazole 40 MG VIAL IVP SCH (11:08)
[2018-04-28] MEDS: Levothyroxine Sodium 100 MCG VIAL IVP SCH (11:08)
--- NOTE | 2018-04-28 12:34 | General Surgery Progress Note ---
<GilbertAngelica Lo - Last Filed: 04/28/18 12:28> Date of Encounter: 04/28/18 Time of Encounter: 12:28 - Assessment and Plan (1) Bowel obstruction Current Visit: Yes Status: Resolved Date of procedure: 04/18/18 Pre-op diagnosis: Sigmoid colon obstruction secondary to infiltrating mass Post-op diagnosis: other (Sigmoid colon obstruction indistinct infiltrating mass ) Procedure: Torrez's procedure. Sigmoid colectomy with end colostomy POD#10 as above. Pathology acute on chronic diverticulitis. CEA unremarkable Clinical course thus far has included a period of being on CLD postoperatively, but on day 3 there was concern for aspiration. FAN RUNNER recommended thickened liquids and she was returned to a diet. On 04/23/2018 she was sitting up at bedside and appeared to be doing well, but on 04/24 she developed a postoperative ileus and an NG was placed with return of 1L. NG output is decreasing. Norton catheter was replaced (04/25 due to decreased urinary output) and RN noted 1200 ML's return. She continued to have vomiting with her need her gastric tube to a Norton bag. She was returned to suction. On 04/27/2018 urine her white blood cell count remains elevated at 21,000 hundred. She is having output in her colostomy. A CT of the abdomen and pelvis was completed to rule out any possibility of intra-abdominal sepsis 04/27 which noted scattered dilated loops of small and large bowel, no transition point seen, scattered abdominal and pelvic ascites most likely secondary to fluid overload, cholelithiasis, focal nodule projecting over the left kidney not clearly a simple cyst. her stoma is pink and moist Plan: continue supportive care and discomfort management postoperative ileus: methylnatrexone SQ x1 on 04/25 (can repeat on 04/26), NPO , NG to LIWS. Await return of bowel function PICC/TPN for protein malnutrition Continue ATBX; WBC increased 10.3>>15.0>> (noted primary team changed levofloxacin to Zosyn on 04/24, flagyl to vancomycin 625). Continue antibiotics per primary team Continue Norton while strict intake and output needed daily wound care per bedside RN: remove dressing. Wash midline incision with antibacterial soap. May cover with a dry dressing or leave open to air. Ostomy care: consult to wound care Place abdominal binder loosely to protect colostomy given confusion. continue PT/OT as able; noted she will need a hospital bed at home per primary team Qualifiers: Intestinal obstruction type: other intestinal obstruction Intestinal obstruction extent: complete Qualified Code(s): K56.691 - Other complete intestinal obstruction (2) Leukocytosis Current Visit: Yes Status: Acute Suspect pulm vs urinary in nature. No evidence for concern for abdominal source. See assessment and plan above. Management per primary team/infectious disease Qualifiers: Leukocytosis type: unspecified Qualified Code(s): D72.829 - Elevated white blood cell count, unspecified (3) Mass of colon Current Visit: Yes Status: Resolved See assessment and plan above (4) Dementia Current Visit: Yes Status: Chronic psych following. Management per primary team. See A/P above Qualifiers: Dementia type: unspecified type Dementia behavioral disturbance: without behavioral disturbance Qualified Code(s): F03.90 - Unspecified dementia without behavioral disturbance (5) Protein-calorie malnutrition, moderate Current Visit: Yes Status: Acute Postoperative ileus remains but improving. See a/p above PICC and TPN Subjective Narrative: Unable to obtain subjective information. She remains confused. Objective Vital Signs - Last 8 Hours Temp Pulse Resp BP Pulse Ox 04/28/18 12:09 99.2 F 107 20 132/79 96 04/28/18 10:05 100.0 F H 93 18 119/79 97 04/28/18 09:00 100.0 F H 93 18 119/79 97 04/28/18 07:12 99.4 F 107 20 118/77 95 04/28/18 05:00 99.5 F 106 20 137/78 95 Intake and Output 04/27/18 04/28/18 04/28/18 23:59 07:59 15:59 Intake Total 800 / 800 350 / 350 0 / 0 Output Total 945 / 945 1125 / 1125 950 / 950 Balance -145 / -145 -775 / -775 -950 / -950 Intake: IV Fluids 800 / 800 350 / 350 Ofirmev 1,000 mg/100 ml 1,000 100 / 100 mg In 100 ml @ 400 mls/hr IVPB Q6H PRN Rx#:[id number] Intralipid 20% 250 ML @ 21 mls/ 250 / 250 hr IVPB DAILY@1700 [facility] Rx#: [id number] Mycamine 100 MG In 0.9 % Sodium 100 / 100 Chloride (Mini-Bag +) 100 ML @ 100 mls/hr IVPB DAILY [facility] Rx#: [id number] Zosyn 3.375 GM In 0.9 % Sodium 100 / 100 100 / 100 Chloride (Mini-Bag +) 100 ML @ 25 mls/hr IVPB Q8HR [facility] Rx#: [id number] Vancocin 2,000 MG In 0.9 % 500 / 500 Sodium Chloride 500 ML @ 250 mls/hr IVPB Q24H [facility] Rx#: [id number] Oral 0 / 0 0 / 0 Output: Urine 250 / 250 Stool 470 / 470 450 / 450 450 / 450 Catheter 125 / 125 375 / 375 250 / 250 Gastric Drainage 350 / 350 300 / 300 Other: Meal Dinner Breakfast Percent of Meal Consumed 0% 0% Stool Consistency liquid liquid Stool Color Brown Brown Green Green Blood Glucose* 111 124 - Labs 04/28/18 04:00 04/28/18 04:00 Diabetes panel 04/27/18 04/28/18 Range/Units 14:45 04:00 Sodium 139 (136-145) mEq/L Potassium 2.7 L (3.5-5.1) mEq/L Chloride 107 (98-107) mEq/L Carbon Dioxide 25 (23-29) mEq/L BUN 17 (8-23) mg/dL Creatinine 1.05 (0.60-1.20) mg/dL Glucose 109 H (70-105) mg/dL Calcium 7.4 L (8.6-10.3) mg/dL AST 16 (13-39) Units/L ALT 13 (7-52) Units/L Alkaline Phosphatase 54 (34-104) Units/L Albumin 2.2 L (3.5-5.7) g/dL Calcium panel 04/27/18 04/28/18 Range/Units 14:45 04:00 Calcium 7.4 L (8.6-10.3) mg/dL Phosphorus 3.3 (2.7-4.5) mg/dL Albumin 2.2 L (3.5-5.7) g/dL Pituitary panel 04/28/18 Range/Units 04:00 Sodium 139 (136-145) mEq/L Potassium 2.7 L (3.5-5.1) mEq/L Chloride 107 (98-107) mEq/L Carbon Dioxide 25 (23-29) mEq/L BUN 17 (8-23) mg/dL Creatinine 1.05 (0.60-1.20) mg/dL Glucose 109 H (70-105) mg/dL Calcium 7.4 L (8.6-10.3) mg/dL Adrenal panel 04/27/18 04/28/18 Range/Units 14:45 04:00 Sodium 139 (136-145) mEq/L Potassium 2.7 L (3.5-5.1) mEq/L Chloride 107 (98-107) mEq/L Carbon Dioxide 25 (23-29) mEq/L BUN 17 (8-23) mg/dL Creatinine 1.05 (0.60-1.20) mg/dL Glucose 109 H (70-105) mg/dL Calcium 7.4 L (8.6-10.3) mg/dL Total Bilirubin 0.4 (0.3-1.0) mg/dL AST 16 (13-39) Units/L ALT 13 (7-52) Units/L Alkaline Phosphatase 54 (34-104) Units/L Albumin 2.2 L (3.5-5.7) g/dL - VTE Documentation of Mechanical Device: Intermittent pneumatic compression device Consult Discharge Plan - Plan Additional Instructions: continue current medications for calm/agitation, and to keep pt comfortable and redirectable Referrals: Albertina Huerta MD [Primary Care Provider] - <Virgil Hernandez - Last Filed: 04/28/18 13:39> Date of Encounter: 04/28/18 - Assessment and Plan (1) Bowel obstruction Current Visit: Yes Status: Resolved Qualifiers: Intestinal obstruction type: other intestinal obstruction Intestinal obstruction extent: complete Qualified Code(s): K56.691 - Other complete intestinal obstruction Objective Vital Signs - Last 8 Hours Temp Pulse Resp BP Pulse Ox 04/28/18 12:09 99.2 F 107 20 132/79 96 04/28/18 10:05 100.0 F H 93 18 119/79 97 04/28/18 09:00 100.0 F H 93 18 119/79 97 04/28/18 07:12 99.4 F 107 20 118/77 95 Intake and Output 04/27/18 04/28/18 04/28/18 23:59 07:59 15:59 Intake Total 800 / 800 350 / 350 0 / 0 Output Total 945 / 945 1125 / 1125 1050 / 1050 Balance -145 / -145 -775 / -775 -1050 / -1050 Intake: IV Fluids 800 / 800 350 / 350 Ofirmev 1,000 mg/100 ml 1,000 100 / 100 mg In 100 ml @ 400 mls/hr IVPB Q6H PRN Rx#:[id number] Intralipid 20% 250 ML @ 21 mls/ 250 / 250 hr IVPB DAILY@1700 [facility] Rx#: [id number] Mycamine 100 MG In 0.9 % Sodium 100 / 100 Chloride (Mini-Bag +) 100 ML @ 100 mls/hr IVPB DAILY [facility] Rx#: [id number] Zosyn 3.375 GM In 0.9 % Sodium 100 / 100 100 / 100 Chloride (Mini-Bag +) 100 ML @ 25 mls/hr IVPB Q8HR [facility] Rx#: [id number] Vancocin 2,000 MG In 0.9 % 500 / 500 Sodium Chloride 500 ML @ 250 mls/hr IVPB Q24H [facility] Rx#: [id number] Oral 0 / 0 0 / 0 Output: Urine 250 / 250 Stool 470 / 470 450 / 450 450 / 450 Catheter 125 / 125 375 / 375 350 / 350 Gastric Drainage 350 / 350 300 / 300 Other: Meal Dinner Lunch Percent of Meal Consumed 0% 0% Stool Consistency liquid liquid Stool Color Brown Brown Green Green Blood Glucose* 111 124 - Labs 04/28/18 04:00 04/28/18 04:00 Diabetes panel 04/27/18 04/28/18 Range/Units 14:45 04:00 Sodium 139 (136-145) mEq/L Potassium 2.7 L (3.5-5.1) mEq/L Chloride 107 (98-107) mEq/L Carbon Dioxide 25 (23-29) mEq/L BUN 17 (8-23) mg/dL Creatinine 1.05 (0.60-1.20) mg/dL Glucose 109 H (70-105) mg/dL Calcium 7.4 L (8.6-10.3) mg/dL AST 16 (13-39) Units/L ALT 13 (7-52) Units/L Alkaline Phosphatase 54 (34-104) Units/L Albumin 2.2 L (3.5-5.7) g/dL Calcium panel 04/27/18 04/28/18 Range/Units 14:45 04:00 Calcium 7.4 L (8.6-10.3) mg/dL Phosphorus 3.3 (2.7-4.5) mg/dL Albumin 2.2 L (3.5-5.7) g/dL Pituitary panel 04/28/18 Range/Units 04:00 Sodium 139 (136-145) mEq/L Potassium 2.7 L (3.5-5.1) mEq/L Chloride 107 (98-107) mEq/L Carbon Dioxide 25 (23-29) mEq/L BUN 17 (8-23) mg/dL Creatinine 1.05 (0.60-1.20) mg/dL Glucose 109 H (70-105) mg/dL Calcium 7.4 L (8.6-10.3) mg/dL Adrenal panel 04/27/18 04/28/18 Range/Units 14:45 04:00 Sodium 139 (136-145) mEq/L Potassium 2.7 L (3.5-5.1) mEq/L Chloride 107 (98-107) mEq/L Carbon Dioxide 25 (23-29) mEq/L BUN 17 (8-23) mg/dL Creatinine 1.05 (0.60-1.20) mg/dL Glucose 109 H (70-105) mg/dL Calcium 7.4 L (8.6-10.3) mg/dL Total Bilirubin 0.4 (0.3-1.0) mg/dL AST 16 (13-39) Units/L ALT 13 (7-52) Units/L Alkaline Phosphatase 54 (34-104) Units/L Albumin 2.2 L (3.5-5.7) g/dL - Attending Attestation I have personally performed a face to face evaluation on this patient. I have reviewed and agree with the care plan. History and Exam by me shows: I personally reviewed the CAT scan images from yesterday. I evaluated the patient on morning rounds today. She appears to have a prolonged postoperative ileus. There does not appear to be a bowel obstruction. She is having colostomy output. Her nausea vomiting should clear with continued support. Add Reglan as needed.
[2018-04-28] MEDS ORDERED: Potassium Chloride 40 MEQ, Lidocaine 1% 2 ML in D5% in Water 500 ML IVPB ONE (13:19)
[2018-04-28 15:12] LABS: Adenovirus Not Detected (Not Detect); Bordetella Pertussis Not Detected (Not Detect); Chlamydophila pneumoniae Not Detected (Not Detect); Coronavirus 229E Not Detected (Not Detect); Coronavirus HKU1 Not Detected (Not Detect); Coronavirus NL63 Not Detected (Not Detect); Coronavirus OC43 Not Detected (Not Detect); Human Metapneumovirus Not Detected (Not Detect); Human Rhinovirus/Enterovirus Not Detected (Not Detect); Influenza A Subtype 2009 H1 Not Detected (Not Detect); Influenza A Untypeable Not Detected (Not Detect); Influenza B Not Detected (Not Detect); Mycoplasma pneumoniae Not Detected (Not Detect); Parainfluenza Virus 1 Not Detected (Not Detect); Parainfluenza Virus 2 Not Detected (Not Detect); Parainfluenza Virus 3 Not Detected (Not Detect); Parainfluenza Virus 4 Not Detected (Not Detect); Respiratory Syncytial Virus Not Detected (Not Detect)
[2018-04-28] MEDS ORDERED: Clinimix E 5%-15% SOLUTION 2,000 ML with MVI, adult with vitamin K 10 ML, Potassium C... IVC SCH (17:00)
--- NOTE | 2018-04-28 18:18 | Internal Med Progress Note ---
Date of Encounter: 04/28/18 Time of Encounter: 08:00 - Assessment and plan (1) Ileus following gastrointestinal surgery Current Visit: Yes Status: Acute Assessment and plan: Continues with NG and TPN. Further management per surgical service. (2) Leukocytosis Current Visit: Yes Status: Acute Assessment and plan: WBC somewhat improved. Continue abx per ID service. Qualifiers: Leukocytosis type: unspecified Qualified Code(s): D72.829 - Elevated white blood cell count, unspecified (3) Bowel obstruction Current Visit: Yes Status: Resolved Assessment and plan: From sigmoid colon mass s/p resection now. Pain management. Qualifiers: Intestinal obstruction type: other intestinal obstruction Intestinal obstruction extent: complete Qualified Code(s): K56.691 - Other complete intestinal obstruction (4) Hypokalemia Current Visit: Yes Status: Acute Assessment and plan: Persists. IV replacement. Added to TPN today. (5) HTN (hypertension) Current Visit: Yes Status: Chronic Assessment and plan: Not taking PO. Continue IV meds for management of BP. Qualifiers: Hypertension type: essential hypertension Qualified Code(s): I10 - Essential (primary) hypertension (6) HLD (hyperlipidemia) Current Visit: Yes Status: Chronic Assessment and plan: Continue home medications when tolerating PO. Qualifiers: Hyperlipidemia type: mixed hyperlipidemia Qualified Code(s): E78.2 - Mixed hyperlipidemia (7) Hypothyroidism Current Visit: Yes Status: Chronic Assessment and plan: Currently on IV supplement. Qualifiers: Hypothyroidism type: acquired Qualified Code(s): E03.9 - Hypothyroidism, unspecified (8) DVT prophylaxis Current Visit: Yes Status: Acute (9) Dementia Current Visit: Yes Status: Chronic Assessment and plan: Sitter in room now. Qualifiers: Dementia type: unspecified type Dementia behavioral disturbance: without behavioral disturbance Qualified Code(s): F03.90 - Unspecified dementia without behavioral disturbance (10) Protein-calorie malnutrition, moderate Current Visit: Yes Status: Acute Assessment and plan: TPN started. Electrolytes to be followed. (11) Hypomagnesemia Current Visit: Yes Status: Resolved (12) Hypocalcemia Current Visit: Yes Status: Acute - Time Spent With Patient Total time spent is greater than 50% in coordination of care (as documented) at patient's floor/unit and/or counseling patient: - Subjective Interval history: Ms Stinson is currently admitted for acute post op ileus following Hartmans procedure for colon mass. She is now on TPN. She remains moderate to high risk due to potential for worsening clinical status. Ms Stinson seems to be more alert today. Does not answer question. No fever or chills. - Constitutional Vitals: Temp Pulse Resp BP Pulse Ox 99.5 F 102 20 131/36 95 04/28/18 17:34 04/28/18 17:34 04/28/18 17:34 04/28/18 17:34 04/28/18 17:34 General appearance: Present: A&O X 1. Absent: answers questions appropriately - Head Head exam: Present: normocephalic - Eye Eye exam: Present: conjuntiva pink - ENT ENT exam: Present: mucous membranes dry - Respiratory Respiratory exam: Present: decreased breath sounds. Absent: rhonchi, wheezes - Cardiovascular Cardiovascular exam: Present: RRR. Absent: tachycardia - GI/Abdominal GI/Abdominal exam: Present: hypoactive bowel sounds, soft - Extremities Exam Extremities exam: Present: warm. Absent: tenderness - Neurological Exam Neurological exam: Present: alert - Skin Skin exam: Present: dry, warm Internal Medicine: Result - Labs CBC & Chem 7: 04/28/18 04:00 04/28/18 04:00 Labs: Short CBC 04/28/18 Range/Units 04:00 WBC 19.8 H (4.3-11.1) K/mcL Hgb 10.6 L D (11.5-15.4) g/dL Hct 31.5 L (35.3-44.9) % Plt Count 323 (140-400) K/mcL Neutrophils # 16.2 H (1.6-8.9) K/mcL BMP 04/28/18 04:00 Sodium 139 Potassium 2.7 L Chloride 107 Carbon Dioxide 25 BUN 17 Creatinine 1.05 Glucose 109 H Calcium 7.4 L - ABG Interpretation ABG results: PT/INR, D-dimer PT 14.2 Seconds (9.4-12.1) H 04/19/18 04:19 - Impressions Impressions Chest CT 04/27/18 15:37 IMPRESSION: Motion limited study. Moderate bilateral pleural effusions. Associated bibasilar lung opacities likely represent atelectasis. Upper lobe sub solid nodular opacities measuring up to 23 mm are suspected to be infectious; however, recommend follow up based on guidelines below. RECOMMENDATIONS: Fleischner Society guidelines for follow-up and management of incidentally detected subsolid pulmonary nodules: Multiple subsolid nodules < 6 [address] - CT at 3-6 months. If stable, consider CT at 2 and 4 years. > than or equal to 6 [address] - [address] at 3-6 months. Subsequent management based on the most suspicious nodule(s). - Low risk patients include individuals with minimal or absent history of smoking and other known risk factors. - High risk patients include individuals with a history or smoking or known risk factors. Radiology 2017 http://pubs.rsna.org/doi/full/10.1148/radiol.[email or web address] D/ / 04/27/2018 20:01:05 Abdirizak Das MD / pro Interpreting Provider: Abdirizak Das MD - VTE Documentation of Mechanical Device: Intermittent pneumatic compression device Consult Discharge Plan - Plan Additional Instructions: continue current medications for calm/agitation, and to keep pt comfortable and redirectable Referrals: Albertina Huerta MD [Primary Care Provider] -
[2018-04-28] MEDS: Acetaminophen IV 1,000 MG/100 ML INFUS..BTL IVPB PRN (20:49)
[2018-04-29] MEDS: Piperacillin/Tazobactam 3.375 GM in 0.9 % Sodium Chloride Mini Bag 100 ML IVPB SCH ×3 (00:05→21:00)
[2018-04-29] MEDS: Insulin LISPRO 300 UNITS/3 ML VIAL SQ SCH ×6 (00:30→20:12)
[2018-04-29 04:02] LABS: Calcium 7.6 mg/dL (8.6-10.3); Magnesium 1.9 mg/dL (1.6-2.6); Phosphorous 3.7 mg/dL (2.7-4.5); Potassium 2.8 mEq/L (3.5-5.1)
[2018-04-29] MEDS ORDERED: Potassium Chloride 40 MEQ, Lidocaine 1% 2 ML in D5% in Water 500 ML IVPB ONE (05:28)
[2018-04-29] MEDS: *HR* Heparin 5,000 UNIT/ML VIAL SQ SCH ×2 (05:47→17:33)
[2018-04-29] MEDS: Micafungin 100 MG in 0.9 % Sodium Chloride Mini Bag 100 ML IVPB SCH (10:02)
[2018-04-29] MEDS: Levothyroxine Sodium 100 MCG VIAL IVP SCH (10:02)
[2018-04-29] MEDS: Pantoprazole 40 MG VIAL IVP SCH (10:03)
[2018-04-29 10:49] LABS: Basophils % 0.2 %; Eosinophils # 0.3 K/mcL (0.0-0.6); Eosinophils % 1.7 %; Hemoglobin 9.9 g/dL (11.5-15.4); Immature Granulocytes % 1.1 % (0-4); Lymphocytes # 1.2 K/mcL (0.6-4.6); Mean Corpuscular Hemoglobin 27.6 pg (28.0-33.3); Mean Corpuscular Volume 83.6 fL (83.0-100.0); Mean Platelet Volume 9.9 fL (9.4-12.4); Monocytes # 1.1 K/mcL (0.0-1.3); Monocytes % 6.3 %; Neutrophils # 14.1 K/mcL (1.6-8.9); Platelet Count 314 K/mcL (140-400); Red Blood Count 3.59 M/mcL (3.82-4.97); Red Cell Distribution Width 14.6 % (11.5-14.5); Segmented Neutrophils % 83.7 %
--- NOTE | 2018-04-29 12:47 | General Surgery Progress Note ---
Date of Encounter: 04/29/18 Time of Encounter: 12:00 - Assessment and Plan (1) Bowel obstruction Current Visit: Yes Status: Acute Date of procedure: 04/18/18 Pre-op diagnosis: Sigmoid colon obstruction secondary to infiltrating mass Post-op diagnosis: other (Sigmoid colon obstruction indistinct infiltrating mass ) Procedure: Torrez's procedure. Sigmoid colectomy with end colostomy POD#11 as above. Pathology acute on chronic diverticulitis. CEA unremarkable Clinical course thus far has included a period of being on CLD postoperatively, but on day 3 there was concern for aspiration. [employer] recommended thickened liquids and she was returned to a diet. On 04/23/2018 she was sitting up at bedside and appeared to be doing well, but on 04/24 she developed a postoperative ileus and an NG was placed with return of 1L. NG output is decreasing. Norton catheter was replaced (04/25 due to decreased urinary output) and RN noted 1200 ML's return. She continued to have vomiting with her need her gastric tube to a Norton bag, and she was returned to suction. On 04/[address] of the abdomen and pelvis was completed to rule out any possibility of intra-abdominal sepsis which noted scattered dilated loops of small and large bowel, no transition point seen, scattered abdominal and pelvic ascites most likely secondary to fluid overload, cholelithiasis, focal nodule projecting over the left kidney not clearly a simple cyst. ID is following and changed IV ATBX to Vanc, Zosyn, and Micofungin 04/29 her NG remains to suction at this time and has had minimal output. She has had greater than 600 ML liquid output in her colostomy today. Her stoma is pink and moist. She does remain confused and noted sitters at bedside bilateral wrist restraints applied. Her right arm is significantly edematous when compared to the left arm. Her PICC is in the right arm. The bedside RN notes that they did infuse Zosyn and a peripheral IV and ill filtrated however the Zosyn amount is only 100 mL. We will obtain bilateral upper extremity Doppler's to rule out DVT. Plan: continue supportive care and discomfort management postoperative ileus: methylnatrexone SQ x1 on 04/25 (can repeat after 04/26 if needed) Await return of bowel function-will complete a KUB. If her bowel gas pattern is improved, we will d/c her NG tube return to diet as per [employer] recommendations PICC/TPN for protein malnutrition daily wound care per bedside RN: remove dressing. Wash midline incision with antibacterial soap. May cover with a dry dressing or leave open to air. Ostomy care per bedside RN Place abdominal binder loosely to protect colostomy given confusion. Continue PT/OT, GI, and DVT prophylaxis Update: 1334 NG d/c'd. May have clear liquid diet per [employer] recommendations. Will consider advancing diet on 04/30 Qualifiers: Intestinal obstruction type: other intestinal obstruction Intestinal obstruction extent: complete Qualified Code(s): K56.691 - Other complete intestinal obstruction (2) Arm edema Current Visit: Yes Status: Acute PIV infiltration vs concern for DVT BL UE dopplers to r/o DVT Continue heparin SQ per primary team in the interim (3) Leukocytosis Current Visit: Yes Status: Acute Suspect pulm vs urinary in nature. No evidence for concern for abdominal source. Managment per ID Qualifiers: Leukocytosis type: unspecified Qualified Code(s): D72.829 - Elevated white blood cell count, unspecified (4) Mass of colon Current Visit: Yes Status: Resolved See assessment and plan above (5) Dementia Current Visit: Yes Status: Chronic psych following. Management per primary team. See A/P above Qualifiers: Dementia type: unspecified type Dementia behavioral disturbance: without behavioral disturbance Qualified Code(s): F03.90 - Unspecified dementia without behavioral disturbance (6) Protein-calorie malnutrition, moderate Current Visit: Yes Status: Acute Postoperative ileus remains but improving. See a/p above PICC and TPN (7) Postoperative ileus Current Visit: Yes Status: Acute Prolonged postoperative ileus. See assessment and plan above. Further recommendations pending KUB Subjective Narrative: Unable to obtain subjective information. Mrs. Stinson remains confused. Objective Vital Signs - Last 8 Hours Temp Pulse Resp BP Pulse Ox 04/29/18 11:57 98.8 F 95 20 145/82 96 04/29/18 11:54 98.8 F 95 20 145/82 96 04/29/18 08:06 98.2 F 95 20 124/69 96 04/29/18 07:30 98.2 F 95 20 124/69 96 Intake and Output 04/28/18 04/29/18 04/29/18 23:59 07:59 15:59 Intake Total 210 / 210 350 / 350 0 / 0 Output Total 1275 / 1275 650 / 650 1600 / 1600 Balance -1065 / -1065 -300 / -300 -1600 / -1600 Intake: IV Fluids 200 / 200 350 / 350 Ofirmev 1,000 mg/100 ml 1,000 100 / 100 mg In 100 ml @ 400 mls/hr IVPB Q6H PRN Rx#:[id number] Intralipid 20% 250 ML @ 21 mls/ 250 / 250 hr IVPB DAILY@1700 [facility] Rx#: [id number] Zosyn 3.375 GM In 0.9 % Sodium 100 / 100 100 / 100 Chloride (Mini-Bag +) 100 ML @ 25 mls/hr IVPB Q8HR [facility] Rx#: [id number] Oral 0 / 0 0 / 0 Free Water 10 10 Output: Stool 550 / 550 300 / 300 350 / 350 Catheter 725 / 725 350 / 350 1100 / 1100 Gastric Drainage 150 / 150 Other: Meal Dinner Breakfast Percent of Meal Consumed 0% 0% Stool Consistency liquid liquid Stool Color Yellow Brown Brown Green Yellow Green Blood Glucose* 125 131 99 - General physical appearance no distress, other - Neck Neck exam: trachea midline - Respiratory other (Decreased breath sounds) - Cardiovascular Cardiovascular exam: Present: distant heart sounds - Abdomen Abdomen: Present: bowel sounds present, soft, non tender, wound (Colostomy site is within normal limits. The stoma is pink and moist. The student nurse reported 350 ML screen output this a.m. and the bag is nearly full again.) Hernia: none - Incision Incision: Present: clean and dry, intact - Integumentary other - Musculoskeletal other (She is restrained bilateral upper arms. Her right arm is very edematous. The left arm is of normal size.) - Psychiatric other (Confused) - Labs 04/29/18 10:20 04/29/18 03:15 Diabetes panel 04/29/18 Range/Units 03:15 Sodium 139 (136-145) mEq/L Potassium 2.8 L (3.5-5.1) mEq/L Chloride 109 H (98-107) mEq/L Carbon Dioxide 23 (23-29) mEq/L BUN 26 H (8-23) mg/dL Creatinine 1.68 H (0.60-1.20) mg/dL Glucose 108 H (70-105) mg/dL Calcium 7.6 L (8.6-10.3) mg/dL Calcium panel 04/29/18 Range/Units 03:15 Calcium 7.6 L (8.6-10.3) mg/dL Phosphorus 3.7 (2.7-4.5) mg/dL Pituitary panel 04/29/18 Range/Units 03:15 Sodium 139 (136-145) mEq/L Potassium 2.8 L (3.5-5.1) mEq/L Chloride 109 H (98-107) mEq/L Carbon Dioxide 23 (23-29) mEq/L BUN 26 H (8-23) mg/dL Creatinine 1.68 H (0.60-1.20) mg/dL Glucose 108 H (70-105) mg/dL Calcium 7.6 L (8.6-10.3) mg/dL Adrenal panel 04/29/18 Range/Units 03:15 Sodium 139 (136-145) mEq/L Potassium 2.8 L (3.5-5.1) mEq/L Chloride 109 H (98-107) mEq/L Carbon Dioxide 23 (23-29) mEq/L BUN 26 H (8-23) mg/dL Creatinine 1.68 H (0.60-1.20) mg/dL Glucose 108 H (70-105) mg/dL Calcium 7.6 L (8.6-10.3) mg/dL - VTE Documentation of Mechanical Device: Intermittent pneumatic compression device Consult Discharge Plan - Plan Additional Instructions: continue current medications for calm/agitation, and to keep pt comfortable and redirectable Referrals: Albertina Huerta MD [Primary Care Provider] -
[2018-04-29] MEDS ORDERED: Micafungin 100 MG in 0.9 % Sodium Chloride Mini Bag 100 ML IVPB SCH (15:00)
--- NOTE | 2018-04-29 16:07 | Infectious Disease Progress No ---
Date of Encounter: 04/29/18 Time of Encounter: 16:05 - Assessment and Plan (1) Sepsis Current Visit: Yes Status: Acute The patient had three SIRS criteria (tachycardia, leukocytosis, and fever). Etiology unclear: intra-abdominal (peritonitis) vs. pulmonary (pneumonia) vs. non-infectious. The patient did have some spillage of bowel contents into the abdomen intra-op, but CT negative for abscess or fluid collection. She continues to have persistent leukocytosis, but appears to be trending down today. She continues to have persistent tachycardia. She has been afebrile x 48 hours. Blood culture drawn 04/22/18 is negative x 1 set. Repeat blood culture drawn 04/24/18 is NGTD x 1 set. Repeat blood cultures drawn 04/25/18 are NGTD x 2 sets. Additional blood cultures drawn 04/27/18 are pending x 2 sets. The patient's mental status makes it very difficult to obtain ROS information from her. CT of the abdomen and pelvis showed findings consistent with ileus and some ascites, but no other acute intra-abdominal process. It did show adjacent consolidation at the lung bases. CT chest shows bilateral upper lobe nodular opacities, concerning for infectious process. Urinalysis negative. The patient does have a PICC line, but clinically does not appear infected. Surgical incision looks great. Check procalcitonin. --> pending. Check peripheral smear. --> reveals reactive leukocytosis Amylase and lipase elevated, but abdominal exam benign and CT negative for pancreatitis. The patient does not appear to have any URI symptoms. S. pneumo and Legionella UATs negative. d/c vancomycin; no proof of MRSA and patient seems to be going into GEORGI. Continue Zosyn 3.375 grams IV Q8H. d/c Micafungin 100mg IV daily. Monitor renal function and for drug toxicity and dose-adjust antibiotics. Duration of treatment depends on the clinical picture. d/w pharmacy staff Qualifiers: Sepsis type: sepsis due to unspecified organism Qualified Code(s): A41.9 - Sepsis, unspecified organism (2) Leukocytosis Current Visit: Yes Status: Acute Etiology unclear. Neutrophilic predominance. Improved this morning. Workup as above. Qualifiers: Leukocytosis type: unspecified Qualified Code(s): D72.829 - Elevated white blood cell count, unspecified (3) Abnormal CT scan, chest Current Visit: Yes Status: Acute CT of the chest completed 04/27/18 shows moderate bilateral pleural effusions with bibasilar lung opacities likely representing atelectasis. It also shows upper lob sub-solid nodular opacities that are suspected to be infectious. Recommend pulmonary to evaluate. (4) Encephalopathy Current Visit: Yes Status: Acute Etiology unclear, but likely multifactorial: sepsis + anesthesia + pain medication +/- other. Unsure of the patient's baseline. (5) Ileus following gastrointestinal surgery Current Visit: Yes Status: Acute CT of the abdomen and pelvis completed 04/27/18 showed findings consistent with post-op ileus. Could be contributing to leukocytosis. Management per the surgery team. (6) Mass of colon Current Visit: Yes Status: Resolved CT of the abdomen and pelvis completed 04/18/18 showed a suspicious infiltrating mass of the colon with obstruction. Transferred to [facility]. Surgery consulted and following. 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 Operative note reviewed. Pathology negative for malignancy, but did show acute on chronic diverticulosis with abscess and giant cell formation. Post-op care per the general surgery team. (7) Bowel obstruction Current Visit: Yes Status: Acute Secondary to colonic mass. Resolved. Qualifiers: Intestinal obstruction type: other intestinal obstruction Intestinal obstruction extent: complete Qualified Code(s): K56.691 - Other complete intestinal obstruction (8) Hypokalemia Current Visit: Yes Status: Acute Replacement per the primary team. (9) HTN (hypertension) Current Visit: Yes Status: Chronic Qualifiers: Hypertension type: essential hypertension Qualified Code(s): I10 - Essential (primary) hypertension (10) HLD (hyperlipidemia) Current Visit: Yes Status: Chronic Qualifiers: Hyperlipidemia type: mixed hyperlipidemia Qualified Code(s): E78.2 - Mixed hyperlipidemia (11) Hypothyroidism Current Visit: Yes Status: Chronic Qualifiers: Hypothyroidism type: acquired Qualified Code(s): E03.9 - Hypothyroidism, unspecified (12) Dementia Current Visit: Yes Status: Chronic Qualifiers: Dementia type: unspecified type Dementia behavioral disturbance: without behavioral disturbance Qualified Code(s): F03.90 - Unspecified dementia without behavioral disturbance (13) GEORGI (acute kidney injury) Current Visit: Yes Status: Acute Etiology not clear. Likely multifactorial. Monitor kidney function closely We will DC vancomycin - Subjective Interval history: Patient seen and examined. No acute events noted overnight. Patient more awake this morning, but appears restless and agitated and not able to provide ROS information. Daughter is at bedside who I have met for the first time. Review of systems Limited WBC improved from 20,000-17,000 Patient has been afebrile for 24 hours Infect Dis PN-Objective Data - Labs CBC & Chem 7: 04/29/18 10:20 04/29/18 03:15 Labs: Laboratory Results - last 24 hr 04/28/18 04/28/18 04/28/18 16:25 20:35 23:54 WBC RBC Hgb Hct MCV MCH MCHC RDW Plt Count MPV Immature Gran % Seg Neutrophils % Lymphocytes % Monocytes % Eosinophils % Basophils % Neutrophils # Lymphocytes # Monocytes # Eosinophils # Basophils # Sodium Potassium Chloride Carbon Dioxide BUN Creatinine Est GFR ( Amer) Est GFR (Non-Af Amer) BUN/Creatinine Ratio Glucose POC Glucose 122 H 120 H 125 H Calculated Osmolality Calcium Venous Ioniz Calcium Phosphorus Magnesium Random Vancomycin 04/29/18 04/29/18 04/29/18 03:15 03:54 04:00 WBC RBC Hgb Hct MCV MCH MCHC RDW Plt Count MPV Immature Gran % Seg Neutrophils % Lymphocytes % Monocytes % Eosinophils % Basophils % Neutrophils # Lymphocytes # Monocytes # Eosinophils # Basophils # Sodium 139 Potassium 2.8 L Chloride 109 H Carbon Dioxide 23 BUN 26 H Creatinine 1.68 H Est GFR ( Amer) 36 L Est GFR (Non-Af Amer) 29 L BUN/Creatinine Ratio 15 Glucose 108 H POC Glucose 131 H Calculated Osmolality 293 Calcium 7.6 L Venous Ioniz Calcium 1.10 L Phosphorus 3.7 Magnesium 1.9 Random Vancomycin 04/29/18 04/29/18 04/29/18 08:16 10:20 10:20 WBC 16.8 H RBC 3.59 L Hgb 9.9 L Hct 30.0 L MCV 83.6 MCH 27.6 L MCHC 33.0 RDW 14.6 H Plt Count 314 MPV 9.9 Immature Gran % 1.1 Seg Neutrophils % 83.7 Lymphocytes % 7.0 Monocytes % 6.3 Eosinophils % 1.7 Basophils % 0.2 Neutrophils # 14.1 H Lymphocytes # 1.2 Monocytes # 1.1 Eosinophils # 0.3 Basophils # 0.0 Sodium Potassium Chloride Carbon Dioxide BUN Creatinine Est GFR ( Amer) Est GFR (Non-Af Amer) BUN/Creatinine Ratio Glucose POC Glucose 141 H Calculated Osmolality Calcium Venous Ioniz Calcium Phosphorus Magnesium Random Vancomycin 14 Cultures: Cultures 04/24/18 05:27 Blood Culture - Final Peripheral Venipuncture No growth. Final report. 04/27/18 10:25 Urine Culture - Preliminary Urine,Catheterized Yeast Species 04/27/18 10:29 Legionella Antigen - Final Urine,[place] Streptococcus pneumoniae Antigen (M - Final 04/27/18 16:10 Blood Culture - Preliminary Peripheral Venipuncture Culture is incubating and being continuously monitored for growth. Final report to follow. 04/27/18 16:10 Blood Culture - Preliminary Peripheral Venipuncture Culture is incubating and being continuously monitored for growth. Final report to follow. 04/22/18 08:24 Blood Culture - Final Peripheral Venipuncture No growth. Final report. 04/25/18 07:55 Blood Culture - Preliminary Peripheral Venipuncture Culture is incubating and being continuously monitored for growth. Final report to follow. 04/25/18 07:57 Blood Culture - Preliminary Peripheral Venipuncture Culture is incubating and being continuously monitored for growth. Final report to follow. Serology 04/28/18 04/27/18 04/25/18 Range/Units 14:15 10:35 08:10 Urine Color Dark Yellow Yellow (Yellow) Urine Clarity Cloudy A Clear (Clear) Urine pH 6.0 6.0 (5.0-8.0) pH Units Ur Specific [place] > 1.030 H 1.019 (1.010-1.025) Urine Protein 100 H Negative (Neg-Trace) mg/dL Urine Glucose (UA) Normal Normal (Normal) mg/dL Urine Ketones Negative Trace H (Negative) mg/dL Urine Blood Small H Negative (Negative) Urine Nitrite Negative Negative (Negative) Urine Bilirubin Negative Negative (Negative) Urine Urobilinogen Normal Normal (Normal) mg/dL Ur Leukocyte Esterase Small H Negative (Negative) Urine Microscopic RBC 3-5 H (0-3) per hpf Urine Microscopic WBC 50-100 H (0-3) per hpf Ur Squamous Epith Cells Many H (None-Few) per lpf Urine Bacteria Many H (None-Few) per hpf Hyaline Casts None Seen (None-Few) per lpf Urine Yeast Many H (None Seen) per hpf Ur Culture Indicated? (NO) Chlamy pneumoniae PCR Not Detected (Not Detect) Adenovirus (PCR) Not Detected (Not Detect) B. pertussis DNA (PCR) Not Detected (Not Detect) B.parapertussis DNA PCR Not Detected (Not Detect) Coronavirus OC43 (PCR) Not Detected (Not Detect) Coronavirus HKU1 (PCR) Not Detected (Not Detect) Coronavirus 229E (PCR) Not Detected (Not Detect) Coronavirus NL63 (PCR) Not Detected (Not Detect) Human Metapneumovir PCR Not Detected (Not Detect) Influenza A (H1) PCR Not Detected (Not Detect) Influ A (H1N1/09) PCR Not Detected (Not Detect) Influenza A (H3) PCR Not Detected (Not Detect) Influenza A Untype (PCR) Not Detected (Not Detect) Influenza Type B (PCR) Not Detected (Not Detect) M.pneumoniae DNA (PCR) Not Detected (Not Detect) Parainfluenza 1 (PCR) Not Detected (Not Detect) Parainfluenza 2 (PCR) Not Detected (Not Detect) Parainfluenza 3 (PCR) Not Detected (Not Detect) Parainfluenza 4 (PCR) Not Detected (Not Detect) RSV (PCR) Not Detected (Not Detect) Entero/Rhino (PCR) Not Detected (Not Detect) 04/22/18 Range/Units 09:16 Urine Color Dark Yellow (Yellow) Urine Clarity Clear (Clear) Urine pH 5.5 (5.0-8.0) pH Units Ur Specific [place] > 1.030 H (1.010-1.025) Urine Protein Trace (Neg-Trace) mg/dL Urine Glucose (UA) Normal (Normal) mg/dL Urine Ketones 15 H (Negative) mg/dL Urine Blood Negative (Negative) Urine Nitrite Positive A (Negative) Urine Bilirubin Negative (Negative) Urine Urobilinogen Normal (Normal) mg/dL Ur Leukocyte Esterase Trace H (Negative) Urine Microscopic RBC 5-15 H (0-3) per hpf Urine Microscopic WBC 0-3 (0-3) per hpf Ur Squamous Epith Cells Many H (None-Few) per lpf Urine Bacteria None Seen (None-Few) per hpf Hyaline Casts None Seen (None-Few) per lpf Urine Yeast (None Seen) per hpf Ur Culture Indicated? NO. A (NO) Chlamy pneumoniae PCR (Not Detect) Adenovirus (PCR) (Not Detect) B. pertussis DNA (PCR) (Not Detect) B.parapertussis DNA PCR (Not Detect) Coronavirus OC43 (PCR) (Not Detect) Coronavirus HKU1 (PCR) (Not Detect) Coronavirus 229E (PCR) (Not Detect) Coronavirus NL63 (PCR) (Not Detect) Human Metapneumovir PCR (Not Detect) Influenza A (H1) PCR (Not Detect) Influ A (H1N1/09) PCR (Not Detect) Influenza A (H3) PCR (Not Detect) Influenza A Untype (PCR) (Not Detect) Influenza Type B (PCR) (Not Detect) M.pneumoniae DNA (PCR) (Not Detect) Parainfluenza 1 (PCR) (Not Detect) Parainfluenza 2 (PCR) (Not Detect) Parainfluenza 3 (PCR) (Not Detect) Parainfluenza 4 (PCR) (Not Detect) RSV (PCR) (Not Detect) Entero/Rhino (PCR) (Not Detect) - Impressions Impressions KUB X-Ray 04/29/18 12:17 IMPRESSION: 1. The nasogastric tube is looped within the proximal stomach. Consider repositioning prior to use. 2. Nonobstructive bowel gas pattern. D/ / Abdirizak Diamond MD / Abdirizak Diamond MD Interpreting Provider: Abdirizak Diamond MD Exam - Constitutional Vitals: Temp Pulse Resp BP Pulse Ox 98.8 F 95 20 145/82 96 04/29/18 11:57 04/29/18 11:57 04/29/18 11:57 04/29/18 11:57 04/29/18 11:57 General appearance: disheveled, no febrile, no cooperative - Respiratory Additional comments: 4 inspiratory effort. Chest expanding symmetrically. Lungs audible both lung vazquez. - Cardiovascular Cardiovascular exam: Present: RRR, +S1, +S2 - GI/Abdominal Additional comments: Abdomen soft. Colostomy intact. Wound intact. - VTE Documentation of Mechanical Device: Intermittent pneumatic compression device Consult Discharge Plan - Plan Additional Instructions: continue current medications for calm/agitation, and to keep pt comfortable and redirectable Referrals: Albertina Huerta MD [Primary Care Provider] -
--- NOTE | 2018-04-29 16:24 | Internal Med Progress Note ---
Date of Encounter: 04/29/18 Time of Encounter: 08:10 - Assessment and plan (1) Acute renal failure due to tubular necrosis Current Visit: Yes Status: Suspected Assessment and plan: Pt is having a lot of volume out in stool. She is negative over 2 liters last 24 hours. Will give some IV fluids in addition to TPN and recheck labs in AM May need to ultrasound kidneys as well. (2) Hypokalemia Current Visit: Yes Status: Acute Assessment and plan: Persists today. IV replacement. Increased amount in TPN. (3) Hypocalcemia Current Visit: Yes Status: Acute Assessment and plan: Low again today. Replace. (4) Ileus following gastrointestinal surgery Current Visit: Yes Status: Acute Assessment and plan: NG to be removed today. Has stool output in ostomy. Continue TPN till adequate PO nutrition. (5) Leukocytosis Current Visit: Yes Status: Acute Assessment and plan: Slowly decreasing. Abx per ID service. Qualifiers: Leukocytosis type: unspecified Qualified Code(s): D72.829 - Elevated white blood cell count, unspecified (6) HTN (hypertension) Current Visit: Yes Status: Chronic Assessment and plan: Not taking PO. Continue IV meds for management of BP. Qualifiers: Hypertension type: essential hypertension Qualified Code(s): I10 - Essential (primary) hypertension (7) HLD (hyperlipidemia) Current Visit: Yes Status: Chronic Assessment and plan: Continue home medications when tolerating PO. Qualifiers: Hyperlipidemia type: mixed hyperlipidemia Qualified Code(s): E78.2 - Mixed hyperlipidemia (8) Hypothyroidism Current Visit: Yes Status: Chronic Assessment and plan: Currently on IV supplement. Qualifiers: Hypothyroidism type: acquired Qualified Code(s): E03.9 - Hypothyroidism, unspecified (9) Dementia Current Visit: Yes Status: Chronic Assessment and plan: Sitter in room now. Qualifiers: Dementia type: unspecified type Dementia behavioral disturbance: without behavioral disturbance Qualified Code(s): F03.90 - Unspecified dementia without behavioral disturbance (10) Protein-calorie malnutrition, moderate Current Visit: Yes Status: Acute Assessment and plan: TPN started. Electrolytes to be followed. (11) Bowel obstruction Current Visit: Yes Status: Resolved Assessment and plan: From sigmoid colon mass s/p resection now. Pain management. Qualifiers: Intestinal obstruction type: other intestinal obstruction Intestinal obstruction extent: complete Qualified Code(s): K56.691 - Other complete intestinal obstruction (12) DVT prophylaxis Current Visit: Yes Status: Acute - Time Spent With Patient Total time spent is greater than 50% in coordination of care (as documented) at patient's floor/unit and/or counseling patient: - Subjective Interval history: Ms Stinson is currently admitted for acute post op ileus following Hartmans procedure for colon mass. She is now on TPN. She remains moderate to high risk due to potential for worsening clinical status. Ms Stinson is resting comfortably at this time. NG to be removed today. She has a lot of stool output. No fever or chills. WBC slightly lower. Not really answering or following commands. - Constitutional Vitals: Temp Pulse Resp BP Pulse Ox 98.2 F 101 15 114/62 96 04/29/18 16:00 04/29/18 16:00 04/29/18 16:00 04/29/18 16:00 04/29/18 16:00 General appearance: Present: A&O X 1. Absent: answers questions appropriately - Head Head exam: Present: normocephalic - Eye Eye exam: Present: conjuntiva pink - ENT ENT exam: Present: mucous membranes dry - Respiratory Respiratory exam: Present: decreased breath sounds. Absent: rales, rhonchi, wheezes - Cardiovascular Cardiovascular exam: Present: distant heart sounds, RRR. Absent: tachycardia - GI/Abdominal GI/Abdominal exam: Present: hypoactive bowel sounds, soft - Extremities Exam Extremities exam: Present: warm. Absent: tenderness Additional comments: RUE has some edema - Neurological Exam Neurological exam: Present: alert - Skin Skin exam: Present: dry, warm Internal Medicine: Result - Labs CBC & Chem 7: 04/29/18 10:20 04/29/18 03:15 Labs: Short CBC 04/29/18 Range/Units 10:20 WBC 16.8 H (4.3-11.1) K/mcL Hgb 9.9 L (11.5-15.4) g/dL Hct 30.0 L (35.3-44.9) % Plt Count 314 (140-400) K/mcL Neutrophils # 14.1 H (1.6-8.9) K/mcL BMP 04/29/18 03:15 Sodium 139 Potassium 2.8 L Chloride 109 H Carbon Dioxide 23 BUN 26 H Creatinine 1.68 H Glucose 108 H Calcium 7.6 L - ABG Interpretation ABG results: PT/INR, D-dimer PT 14.2 Seconds (9.4-12.1) H 04/19/18 04:19 - Impressions Impressions KUB X-Ray 04/29/18 12:17 IMPRESSION: 1. The nasogastric tube is looped within the proximal stomach. Consider repositioning prior to use. 2. Nonobstructive bowel gas pattern. D/ / Abdirizak Diamond MD / Abdirizak Diamond MD Interpreting Provider: Abdirizak Diamond MD - VTE Documentation of Mechanical Device: Intermittent pneumatic compression device Consult Discharge Plan - Plan Additional Instructions: continue current medications for calm/agitation, and to keep pt comfortable and redirectable Referrals: Albertina Huerta MD [Primary Care Provider] -
[2018-04-29] MEDS ORDERED: Calcium Gluconate 2,000 MG in 0.9 % Sodium Chloride 100 ML IVPB ONE (16:31)
[2018-04-29] MEDS ORDERED: Clinimix E 5%-15% SOLUTION 2,000 ML with MVI, adult with vitamin K 10 ML, Potassium A... IVC SCH (17:00)
[2018-04-29] MEDS: Acetaminophen IV 1,000 MG/100 ML INFUS..BTL IVPB PRN (17:25)
[2018-04-29] MEDS: Ringers Solution, Lactated 1,000 ML IVC SCH (17:32)
[2018-04-29] MEDS ORDERED: Piperacillin/Tazobactam 3.375 GM in 0.9 % Sodium Chloride Mini Bag 100 ML IVPB SCH (18:00)
[2018-04-30] MEDS: Insulin LISPRO 300 UNITS/3 ML VIAL SQ SCH ×6 (00:50→20:23)
[2018-04-30 04:13] LABS: Calcium 8.1 mg/dL (8.6-10.3); Magnesium 1.9 mg/dL (1.6-2.6); Phosphorous 3.3 mg/dL (2.7-4.5); Potassium 3.2 mEq/L (3.5-5.1)
[2018-04-30] MEDS: *HR* Heparin 5,000 UNIT/ML VIAL SQ SCH ×2 (06:12→18:24)
[2018-04-30] MEDS ORDERED: Aminoglycoside Consult 1 EACH MC ONE (07:50)
[2018-04-30] MEDS: Ringers Solution, Lactated 1,000 ML IVC SCH (08:11)
[2018-04-30] MEDS: Pantoprazole 40 MG VIAL IVP SCH (08:12)
[2018-04-30] MEDS: Levothyroxine Sodium 100 MCG VIAL IVP SCH (08:13)
--- NOTE | 2018-04-30 08:49 | Internal Med Progress Note ---
Date of Encounter: 04/30/18 Time of Encounter: 08:30 - Assessment and plan (1) Acute renal failure due to tubular necrosis Current Visit: Yes Status: Suspected Assessment and plan: Slightly improved today. Will continue IV fluids in addition to TPN. If stool volume is high will check for C diff. Recheck labs tomorrow. Avoid nephrotoxins. Vanc being dosed by renal function. (2) Hypokalemia Current Visit: Yes Status: Acute Assessment and plan: Persists today. Little better than yesterday. Will give IV supplement. Has in TPN as well. (3) Hypocalcemia Current Visit: Yes Status: Acute Assessment and plan: Recheck and replace (4) Ileus following gastrointestinal surgery Current Visit: Yes Status: Acute Assessment and plan: Tolerating having NG out. Not taking a whole lot in by mouth. Continue TPN for now. (5) Leukocytosis Current Visit: Yes Status: Acute Assessment and plan: Recheck tomorrow. Qualifiers: Leukocytosis type: unspecified Qualified Code(s): D72.829 - Elevated white blood cell count, unspecified (6) HTN (hypertension) Current Visit: Yes Status: Chronic Assessment and plan: BP a little higher this am. Not as well controlled. Restart PO meds now. Qualifiers: Hypertension type: essential hypertension Qualified Code(s): I10 - Essential (primary) hypertension (7) HLD (hyperlipidemia) Current Visit: Yes Status: Chronic Assessment and plan: Continue home medications when tolerating PO. Qualifiers: Hyperlipidemia type: mixed hyperlipidemia Qualified Code(s): E78.2 - Mixed hyperlipidemia (8) Hypothyroidism Current Visit: Yes Status: Chronic Assessment and plan: Currently on IV supplement. Anticipate transition to PO tomorrow. Qualifiers: Hypothyroidism type: acquired Qualified Code(s): E03.9 - Hypothyroidism, unspecified (9) Dementia Current Visit: Yes Status: Chronic Assessment and plan: Seems to be more alert today but confused. Qualifiers: Dementia type: unspecified type Dementia behavioral disturbance: without behavioral disturbance Qualified Code(s): F03.90 - Unspecified dementia without behavioral disturbance (10) Protein-calorie malnutrition, moderate Current Visit: Yes Status: Acute Assessment and plan: TPN to be continued. (11) Bowel obstruction Current Visit: Yes Status: Resolved Assessment and plan: From sigmoid colon mass s/p resection now. Pain management. Qualifiers: Intestinal obstruction type: other intestinal obstruction Intestinal obstruction extent: complete Qualified Code(s): K56.691 - Other complete intestinal obstruction (12) DVT prophylaxis Current Visit: Yes Status: Acute - Time Spent With Patient Total time spent is greater than 50% in coordination of care (as documented) at patient's floor/unit and/or counseling patient: - Subjective Interval history: Ms Stinson is currently admitted for acute post op ileus following Hartmans procedure for colon mass. She is now on TPN. She remains moderate to high risk due to potential for worsening clinical status. Ms Stinson is more alert. She is conversant with us but not understandable. She was requesting water. She has output in her ostomy and no nausea or vomiting. She continues to pull at everything. No CP or SOB noted. - Constitutional Vitals: Temp Pulse Resp BP Pulse Ox 97.9 F 106 16 153/87 96 04/30/18 06:38 04/30/18 06:38 04/30/18 06:38 04/30/18 06:38 04/30/18 06:38 General appearance: Present: A&O X 1. Absent: answers questions appropriately - Head Head exam: Present: normocephalic - Eye Eye exam: Present: EOMI, conjuntiva pink - ENT ENT exam: Present: mucous membranes dry - Respiratory Respiratory exam: Present: decreased breath sounds. Absent: rales, rhonchi, wheezes - Cardiovascular Cardiovascular exam: Present: RRR. Absent: tachycardia - GI/Abdominal GI/Abdominal exam: Present: hypoactive bowel sounds, soft. Absent: tenderness Additional comments: Ostomy with liquid stool - Extremities Exam Extremities exam: Present: tenderness, warm Additional comments: Tender RUE with superficial clot area - Neurological Exam Neurological exam: Present: alert - Skin Skin exam: Present: dry, warm Internal Medicine: Result - Labs CBC & Chem 7: 04/29/18 10:20 04/30/18 03:37 Labs: Short CBC 04/29/18 Range/Units 10:20 WBC 16.8 H (4.3-11.1) K/mcL Hgb 9.9 L (11.5-15.4) g/dL Hct 30.0 L (35.3-44.9) % Plt Count 314 (140-400) K/mcL Neutrophils # 14.1 H (1.6-8.9) K/mcL BMP 04/30/18 03:37 Sodium 139 Potassium 3.2 L Chloride 109 H Carbon Dioxide 22 L BUN 29 H Creatinine 1.58 H Glucose 107 H Calcium 8.1 L - ABG Interpretation ABG results: PT/INR, D-dimer PT 14.2 Seconds (9.4-12.1) H 04/19/18 04:19 - Impressions Impressions KUB X-Ray 04/29/18 12:17 IMPRESSION: 1. The nasogastric tube is looped within the proximal stomach. Consider repositioning prior to use. 2. Nonobstructive bowel gas pattern. D/ / Abdirizak Diamond MD / Abdirizak Diamond MD Interpreting Provider: Abdirizak Diamond MD - VTE Documentation of Mechanical Device: Intermittent pneumatic compression device Consult Discharge Plan - Plan Additional Instructions: continue current medications for calm/agitation, and to keep pt comfortable and redirectable Referrals: Albertina Huerta MD [Primary Care Provider] -
[2018-04-30] MEDS ORDERED: amLODIPine 5 MG TABLET PO SCH (09:30)
[2018-04-30] MEDS: Piperacillin/Tazobactam 3.375 GM in 0.9 % Sodium Chloride Mini Bag 100 ML IVPB SCH ×2 (10:40→21:22)
--- NOTE | 2018-04-30 11:28 | Infectious Disease Progress No ---
Date of Encounter: 04/30/18 Time of Encounter: 11:26 - Assessment and Plan (1) Sepsis Current Visit: Yes Status: Acute The patient had three SIRS criteria (tachycardia, leukocytosis, and fever). Etiology unclear: intra-abdominal (peritonitis) vs. pulmonary (pneumonia) vs. non-infectious. The patient did have some spillage of bowel contents into the abdomen intra-op, but CT negative for abscess or fluid collection. She continues to have persistent leukocytosis, but appears to be trending down. She continues to have persistent tachycardia, but appears improved. She has been afebrile. Blood culture drawn 04/22/18 is negative x 1 set. Repeat blood culture drawn 04/24/18 is NGTD x 1 set. Repeat blood cultures drawn 04/25/18 are NGTD x 2 sets. Additional blood cultures drawn 04/27/18 are NGTD x 2 sets. The patient's mental status makes it very difficult to obtain ROS information from her. CT of the abdomen and pelvis showed findings consistent with ileus and some ascites, but no other acute intra-abdominal process. It did show adjacent consolidation at the lung bases. CT chest shows bilateral upper lobe nodular opacities, concerning for infectious process. Urinalysis negative. Culture grew out only yeast. The patient does have a PICC line, but clinically does not appear infected. Surgical incision looks great. Check procalcitonin. --> pending. Check peripheral smear. --> reveals reactive leukocytosis Amylase and lipase elevated, but abdominal exam benign and CT negative for pancreatitis. The patient does not appear to have any URI symptoms. S. pneumo and Legionella UATs negative. Discontinue vancomycin; no proof of MRSA and patient seems to be going into GEORGI. Continue Zosyn 3.375 grams IV Q8H. Discontinue Micafungin 100mg IV daily. Monitor renal function and for drug toxicity and dose-adjust antibiotics. Duration of treatment depends on the clinical picture. Qualifiers: Sepsis type: sepsis due to unspecified organism Qualified Code(s): A41.9 - Sepsis, unspecified organism (2) Leukocytosis Current Visit: Yes Status: Acute Etiology unclear. Neutrophilic predominance. Improved. Workup as above. Continue to trend. Qualifiers: Leukocytosis type: unspecified Qualified Code(s): D72.829 - Elevated white blood cell count, unspecified (3) Abnormal CT scan, chest Current Visit: Yes Status: Acute CT of the chest completed 04/27/18 shows moderate bilateral pleural effusions with bibasilar lung opacities likely representing atelectasis. It also shows upper lobe sub-solid nodular opacities that are suspected to be infectious. Recommend pulmonary to evaluate. (4) Encephalopathy Current Visit: Yes Status: Acute Etiology unclear, but likely multifactorial: sepsis + anesthesia + pain medication +/- other. Unsure of the patient's baseline. (5) Ileus following gastrointestinal surgery Current Visit: Yes Status: Acute CT of the abdomen and pelvis completed 04/27/18 showed findings consistent with post-op ileus. Could be contributing to leukocytosis. Management per the surgery team. (6) Mass of colon Current Visit: Yes Status: Resolved CT of the abdomen and pelvis completed 04/18/18 showed a suspicious infiltrating mass of the colon with obstruction. Transferred to [facility]. Surgery consulted and following. 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 Operative note reviewed. Pathology negative for malignancy, but did show acute on chronic diverticulosis with abscess and giant cell formation. Post-op care per the general surgery team. (7) Bowel obstruction Current Visit: Yes Status: Resolved Secondary to colonic mass. Resolved. Qualifiers: Intestinal obstruction type: other intestinal obstruction Intestinal obstruction extent: complete Qualified Code(s): K56.691 - Other complete intestinal obstruction (8) Hypokalemia Current Visit: Yes Status: Resolved Replacement per the primary team. (9) HTN (hypertension) Current Visit: Yes Status: Chronic Qualifiers: Hypertension type: essential hypertension Qualified Code(s): I10 - Essential (primary) hypertension (10) HLD (hyperlipidemia) Current Visit: Yes Status: Chronic Qualifiers: Hyperlipidemia type: mixed hyperlipidemia Qualified Code(s): E78.2 - Mixed hyperlipidemia (11) Hypothyroidism Current Visit: Yes Status: Chronic Qualifiers: Hypothyroidism type: acquired Qualified Code(s): E03.9 - Hypothyroidism, unspecified (12) Dementia Current Visit: Yes Status: Chronic Qualifiers: Dementia type: unspecified type Dementia behavioral disturbance: without behavioral disturbance Qualified Code(s): F03.90 - Unspecified dementia without behavioral disturbance (13) GEORGI (acute kidney injury) Current Visit: Yes Status: Acute Etiology not clear. Likely multifactorial. Monitor kidney function closely We will DC vancomycin. (14) Superficial venous thrombosis of right arm Current Visit: Yes Status: Acute Venous doppler study shows SVT in the right basilic and right cephalic veins. Supportive care. Anticoagulation per the primary team. - Subjective Interval history: Patient seen and examined with family at the bedside. No acute events noted overnight. Patient more awake this morning, but appears restless and agitated and not able to much provide ROS information. Per the sitter at bedside, patient very restless overnight and attempts to pull lines and colostomy bag when unrestrained. The patient denies pain or shortness of breath, but is unable to provide any other ROS information. Infect Dis PN-Objective Data - Labs CBC & Chem 7: 04/29/18 10:20 04/30/18 03:37 Labs: Laboratory Results - last 24 hr 04/27/18 04/29/18 04/30/18 16:10 19:52 00:46 Sodium Potassium Chloride Carbon Dioxide BUN Creatinine Est GFR ( Amer) Est GFR (Non-Af Amer) BUN/Creatinine Ratio Glucose POC Glucose 131 H 127 H Calculated Osmolality Calcium Phosphorus Magnesium Procalcitonin 0.16 H 04/30/18 04/30/18 03:37 07:41 Sodium 139 Potassium 3.2 L Chloride 109 H Carbon Dioxide 22 L BUN 29 H Creatinine 1.58 H Est GFR ( Amer) 38 L Est GFR (Non-Af Amer) 32 L BUN/Creatinine Ratio 18 Glucose 107 H POC Glucose 121 H Calculated Osmolality 294 Calcium 8.1 L Phosphorus 3.3 Magnesium 1.9 Procalcitonin Cultures: Cultures 04/27/18 10:25 Urine Culture - Final Urine,Catheterized Beatris albicans 04/25/18 07:55 Blood Culture - Final Peripheral Venipuncture No growth. Final report. 04/25/18 07:57 Blood Culture - Final Peripheral Venipuncture No growth. Final report. 04/24/18 05:27 Blood Culture - Final Peripheral Venipuncture No growth. Final report. 04/27/18 10:29 Legionella Antigen - Final Urine,[place] Streptococcus pneumoniae Antigen (M - Final 04/27/18 16:10 Blood Culture - Preliminary Peripheral Venipuncture Culture is incubating and being continuously monitored for growth. Final report to follow. 04/27/18 16:10 Blood Culture - Preliminary Peripheral Venipuncture Culture is incubating and being continuously monitored for growth. Final report to follow. 04/22/18 08:24 Blood Culture - Final Peripheral Venipuncture No growth. Final report. Serology 04/28/18 04/27/18 04/25/18 Range/Units 14:15 10:35 08:10 Urine Color Dark Yellow Yellow (Yellow) Urine Clarity Cloudy A Clear (Clear) Urine pH 6.0 6.0 (5.0-8.0) pH Units Ur Specific [place] > 1.030 H 1.019 (1.010-1.025) Urine Protein 100 H Negative (Neg-Trace) mg/dL Urine Glucose (UA) Normal Normal (Normal) mg/dL Urine Ketones Negative Trace H (Negative) mg/dL Urine Blood Small H Negative (Negative) Urine Nitrite Negative Negative (Negative) Urine Bilirubin Negative Negative (Negative) Urine Urobilinogen Normal Normal (Normal) mg/dL Ur Leukocyte Esterase Small H Negative (Negative) Urine Microscopic RBC 3-5 H (0-3) per hpf Urine Microscopic WBC 50-100 H (0-3) per hpf Ur Squamous Epith Cells Many H (None-Few) per lpf Urine Bacteria Many H (None-Few) per hpf Hyaline Casts None Seen (None-Few) per lpf Urine Yeast Many H (None Seen) per hpf Ur Culture Indicated? (NO) Chlamy pneumoniae PCR Not Detected (Not Detect) Adenovirus (PCR) Not Detected (Not Detect) B. pertussis DNA (PCR) Not Detected (Not Detect) B.parapertussis DNA PCR Not Detected (Not Detect) Coronavirus OC43 (PCR) Not Detected (Not Detect) Coronavirus HKU1 (PCR) Not Detected (Not Detect) Coronavirus 229E (PCR) Not Detected (Not Detect) Coronavirus NL63 (PCR) Not Detected (Not Detect) Human Metapneumovir PCR Not Detected (Not Detect) Influenza A (H1) PCR Not Detected (Not Detect) Influ A (H1N1/09) PCR Not Detected (Not Detect) Influenza A (H3) PCR Not Detected (Not Detect) Influenza A Untype (PCR) Not Detected (Not Detect) Influenza Type B (PCR) Not Detected (Not Detect) M.pneumoniae DNA (PCR) Not Detected (Not Detect) Parainfluenza 1 (PCR) Not Detected (Not Detect) Parainfluenza 2 (PCR) Not Detected (Not Detect) Parainfluenza 3 (PCR) Not Detected (Not Detect) Parainfluenza 4 (PCR) Not Detected (Not Detect) RSV (PCR) Not Detected (Not Detect) Entero/Rhino (PCR) Not Detected (Not Detect) 04/22/18 Range/Units 09:16 Urine Color Dark Yellow (Yellow) Urine Clarity Clear (Clear) Urine pH 5.5 (5.0-8.0) pH Units Ur Specific [place] > 1.030 H (1.010-1.025) Urine Protein Trace (Neg-Trace) mg/dL Urine Glucose (UA) Normal (Normal) mg/dL Urine Ketones 15 H (Negative) mg/dL Urine Blood Negative (Negative) Urine Nitrite Positive A (Negative) Urine Bilirubin Negative (Negative) Urine Urobilinogen Normal (Normal) mg/dL Ur Leukocyte Esterase Trace H (Negative) Urine Microscopic RBC 5-15 H (0-3) per hpf Urine Microscopic WBC 0-3 (0-3) per hpf Ur Squamous Epith Cells Many H (None-Few) per lpf Urine Bacteria None Seen (None-Few) per hpf Hyaline Casts None Seen (None-Few) per lpf Urine Yeast (None Seen) per hpf Ur Culture Indicated? NO. A (NO) Chlamy pneumoniae PCR (Not Detect) Adenovirus (PCR) (Not Detect) B. pertussis DNA (PCR) (Not Detect) B.parapertussis DNA PCR (Not Detect) Coronavirus OC43 (PCR) (Not Detect) Coronavirus HKU1 (PCR) (Not Detect) Coronavirus 229E (PCR) (Not Detect) Coronavirus NL63 (PCR) (Not Detect) Human Metapneumovir PCR (Not Detect) Influenza A (H1) PCR (Not Detect) Influ A (H1N1/09) PCR (Not Detect) Influenza A (H3) PCR (Not Detect) Influenza A Untype (PCR) (Not Detect) Influenza Type B (PCR) (Not Detect) M.pneumoniae DNA (PCR) (Not Detect) Parainfluenza 1 (PCR) (Not Detect) Parainfluenza 2 (PCR) (Not Detect) Parainfluenza 3 (PCR) (Not Detect) Parainfluenza 4 (PCR) (Not Detect) RSV (PCR) (Not Detect) Entero/Rhino (PCR) (Not Detect) - Impressions Impressions KUB X-Ray 04/29/18 12:17 IMPRESSION: 1. The nasogastric tube is looped within the proximal stomach. Consider repositioning prior to use. 2. Nonobstructive bowel gas pattern. D/ / Abdirizak Diamond MD / Abdirizak Diamond MD Interpreting Provider: Abdirizak Diamond MD Exam - Constitutional Vitals: Temp Pulse Resp BP Pulse Ox 99.2 F 102 16 147/84 95 04/30/18 10:50 04/30/18 10:50 04/30/18 10:50 04/30/18 10:50 04/30/18 10:50 General appearance: average body habitus, cooperative, no acute distress - Head Head exam: Present: atraumatic, normal inspection, normocephalic - Eye Eye exam: Present: normal appearance, PERRL Pupils: Present: normal accommodation - ENT ENT exam: Present: mucous membranes dry - Neck Neck exam: Present: normal inspection - Respiratory Respiratory exam: Present: CTAB. Absent: rales, respiratory distress, rhonchi, wheezes - Cardiovascular Cardiovascular exam: Present: RRR, +S1, +S2 - GI/Abdominal GI/Abdominal exam: Present: normal bowel sounds, soft, tenderness (grimaces with abdominal palpation). Absent: distended Additional comments: Midline abdominal surgical incision [employer] with w[place]ka intact and wound edges well -approximated. No erythema, warmth, or drainage noted. Colostomy noted to the LLQ with small amount of liquid brown stool noted in the bag. - Extremities Exam Extremities exam: Absent: joint swelling, normal inspection (RUE erythematous with mild erythema and warmth noted.), pedal edema, tenderness - Neurological Exam Neurological exam: Present: alert, no focal deficits (MAHMOOD spontaneously x 4). Absent: oriented X3 - Skin Skin exam: Present: dry, intact, normal color, warm - VTE Documentation of Mechanical Device: Intermittent pneumatic compression device Consult Discharge Plan - Plan Additional Instructions: continue current medications for calm/agitation, and to keep pt comfortable and redirectable Referrals: Albertina Huerta MD [Primary Care Provider] -
--- NOTE | 2018-04-30 13:36 | General Surgery Progress Note ---
Date of Encounter: 04/30/18 Time of Encounter: 12:10 - Assessment and Plan (1) Status post Sunny's procedure Current Visit: Yes Status: Acute patient is doing well from surgical standpoint ngt removed yesterday and limited thickened clears given, per daughter in patients confused state she is refusing to open her mouth and eat patient will be placed up in chair for all meals, ok to give ice cream, encourage po intake incision healing well colostomy pink and functioning appropriate, output + (2) Dementia Current Visit: Yes Status: Chronic patient confused with dementia at baseline discussed with family that undergoing hospitalization and surgery she can have an acute exaccerbation of her confusion and can even progress with her confusion to a new norm, expressed understanding patient is unlikely able to return home at discharge, likely need rehab or snf Qualifiers: Dementia type: unspecified type Dementia behavioral disturbance: without behavioral disturbance Qualified Code(s): F03.90 - Unspecified dementia without behavioral disturbance (3) Urinary retention Current Visit: Yes Status: Acute continue with rios start flomax Subjective Narrative: patient is confused and not answering questions appropriately is agitated daughters present sitter present Objective Vital Signs - Last 8 Hours Temp Pulse Resp BP Pulse Ox 04/30/18 10:50 99.2 F 102 16 147/84 95 04/30/18 06:38 97.9 F 106 16 153/87 96 Intake and Output 04/29/18 04/30/18 04/30/18 23:59 07:59 15:59 Intake Total 370 / 370 1350 / 1350 255 / 255 Output Total 1175 / 1175 2100 / 2100 775 / 775 Balance -805 / -805 -750 / -750 -520 / -520 Intake: IV Fluids 320 / 320 1350 / 1350 200 / 200 Lactated Ringers 1,000 ML @ 75 1000 / 1000 mls/hr IVC .[id number] REMBERTO Rx#: [id number] Ofirmev 1,000 mg/100 ml 1,000 100 / 100 mg In 100 ml @ 400 mls/hr IVPB Q6H PRN Rx#:[id number] Calcium Gluconate 2,000 MG In 0 120 / 120 .9 % Sodium Chloride 100 ML @ 220 mls/hr IVPB ONCE ONE Rx#: [id number] Intralipid 20% 250 ML @ 21 mls/ 250 / 250 hr IVPB DAILY@1700 REMBERTO Rx#: [id number] Mycamine 100 MG In 0.9 % Sodium 100 / 100 Chloride (Mini-Bag +) 100 ML @ 100 mls/hr IVPB Q24H REMBERTO Rx#: [id number] Zosyn 3.375 GM In 0.9 % Sodium 100 / 100 Chloride (Mini-Bag +) 100 ML @ 25 mls/hr IVPB Q12H REMBERTO Rx#: [id number] Potassium Chloride 10 mEq/100mL 200 / 200 10 meq In 100 ml @ 100 mls/hr IVPB Q1H REMBERTO Rx#:[id number] Oral 50 / 50 55 / 55 Output: Stool 300 / 300 300 / 300 100 / 100 Catheter 875 / 875 1800 / 1800 675 / 675 Other: Meal Dinner Percent of Meal Consumed 0% Stool Consistency liquid Blood Glucose* 131 121 111 - General physical appearance well developed, no distress - Eyes normal ocular movement - ENT dry mucosa - Neck Neck exam: trachea midline - Respiratory normal expansion, clear to auscultation - Cardiovascular Cardiovascular exam: Present: RRR - Abdomen Abdomen: Present: bowel sounds present, soft, non tender. Absent: distended, guarding, rebound - Incision Incision: Present: clean and dry, intact - Integumentary no rash, no growths - Musculoskeletal other (laying in bed with restraints in place) - Psychiatric oriented to time, oriented to person, oriented to place, speech is normal, memory intact - Additional Exam colostomy pink, functioning - Labs 04/29/18 10:20 04/30/18 03:37 Diabetes panel 04/30/18 Range/Units 03:37 Sodium 139 (136-145) mEq/L Potassium 3.2 L (3.5-5.1) mEq/L Chloride 109 H (98-107) mEq/L Carbon Dioxide 22 L (23-29) mEq/L BUN 29 H (8-23) mg/dL Creatinine 1.58 H (0.60-1.20) mg/dL Glucose 107 H (70-105) mg/dL Calcium 8.1 L (8.6-10.3) mg/dL Calcium panel 04/30/18 Range/Units 03:37 Calcium 8.1 L (8.6-10.3) mg/dL Phosphorus 3.3 (2.7-4.5) mg/dL Pituitary panel 04/30/18 Range/Units 03:37 Sodium 139 (136-145) mEq/L Potassium 3.2 L (3.5-5.1) mEq/L Chloride 109 H (98-107) mEq/L Carbon Dioxide 22 L (23-29) mEq/L BUN 29 H (8-23) mg/dL Creatinine 1.58 H (0.60-1.20) mg/dL Glucose 107 H (70-105) mg/dL Calcium 8.1 L (8.6-10.3) mg/dL Adrenal panel 04/30/18 Range/Units 03:37 Sodium 139 (136-145) mEq/L Potassium 3.2 L (3.5-5.1) mEq/L Chloride 109 H (98-107) mEq/L Carbon Dioxide 22 L (23-29) mEq/L BUN 29 H (8-23) mg/dL Creatinine 1.58 H (0.60-1.20) mg/dL Glucose 107 H (70-105) mg/dL Calcium 8.1 L (8.6-10.3) mg/dL - VTE Documentation of Mechanical Device: Intermittent pneumatic compression device Consult Discharge Plan - Plan Additional Instructions: continue current medications for calm/agitation, and to keep pt comfortable and redirectable Referrals: Albertina Huerta MD [Primary Care Provider] -
[2018-04-30] MEDS ORDERED: Haloperidol Lactate 5 MG/ML VIAL IVP PRN (13:37)
[2018-04-30] MEDS ORDERED: Haloperidol Lactate 5 MG/ML VIAL IVP ONE (15:47)
[2018-04-30] MEDS ORDERED: Clinimix E 5%-15% SOLUTION 2,000 ML with MVI, adult with vitamin K 10 ML IVC SCH (17:00)
[2018-04-30] MEDS ORDERED: Famotidine 20 MG TABLET PO SCH (21:00)
[2018-05-01] MEDS: Insulin LISPRO 300 UNITS/3 ML VIAL SQ SCH ×7 (00:50→23:53)
[2018-05-01] MEDS: Ringers Solution, Lactated 1,000 ML IVC SCH (01:10)
[2018-05-01 03:39] LABS: Hematocrit 29.5 % (35.3-44.9); Hemoglobin 9.8 g/dL (11.5-15.4); Mean Corpuscular HGB Conc 33.2 g/dL (31.6-35.5); Mean Corpuscular Hemoglobin 28.2 pg (28.0-33.3); Mean Corpuscular Volume 84.8 fL (83.0-100.0); Mean Platelet Volume 10.1 fL (9.4-12.4); Platelet Count 333 K/mcL (140-400); Red Blood Count 3.48 M/mcL (3.82-4.97); Red Cell Distribution Width 14.7 % (11.5-14.5)
[2018-05-01 03:44] LABS: VBG PH 7.44 pH Units (7.32-7.42)
[2018-05-01 03:59] LABS: Calcium 7.9 mg/dL (8.6-10.3); Magnesium 1.7 mg/dL (1.6-2.6); Potassium 3.8 mEq/L (3.5-5.1)
[2018-05-01] MEDS: *HR* Heparin 5,000 UNIT/ML VIAL SQ SCH ×2 (06:04→18:59)
[2018-05-01] MEDS ORDERED: Ringers Solution, Lactated 1,000 ML IVC SCH (07:45)
--- NOTE | 2018-05-01 07:55 | Internal Med Progress Note ---
Date of Encounter: 05/01/18 Time of Encounter: 07:30 - Assessment and plan (1) Acute renal failure due to tubular necrosis Current Visit: Yes Status: Suspected Assessment and plan: Continues to have GEORGI despite fluids though is slowly decreasing. Making good urine. Will check US. Continue IV fluids. (2) Hypokalemia Current Visit: Yes Status: Resolved Assessment and plan: Improved today. Continue current amount in TPN and follow. (3) Hypocalcemia Current Visit: Yes Status: Acute Assessment and plan: Low again today. Will replace. (4) Ileus following gastrointestinal surgery Current Visit: Yes Status: Resolved Assessment and plan: No further N/V and having good output. Not eating - will start appetite supplement. (5) Leukocytosis Current Visit: Yes Status: Acute Assessment and plan: Lower today. Abx plan per ID. Qualifiers: Leukocytosis type: unspecified Qualified Code(s): D72.829 - Elevated white blood cell count, unspecified (6) HTN (hypertension) Current Visit: Yes Status: Chronic Assessment and plan: Uncontrolled. Meds adjusted today. Qualifiers: Hypertension type: essential hypertension Qualified Code(s): I10 - Essential (primary) hypertension (7) HLD (hyperlipidemia) Current Visit: Yes Status: Chronic Assessment and plan: Refused Zocor last night. Will d/c for now. Qualifiers: Hyperlipidemia type: mixed hyperlipidemia Qualified Code(s): E78.2 - Mixed hyperlipidemia (8) Hypothyroidism Current Visit: Yes Status: Chronic Assessment and plan: Transition to PO supplement today. Qualifiers: Hypothyroidism type: acquired Qualified Code(s): E03.9 - Hypothyroidism, unspecified (9) Dementia Current Visit: Yes Status: Chronic Assessment and plan: Much more agitated and delirious. Did not sleep last night. Start Trazodone at bedtime. PRN Haldol. No focal neuro deficits to suggest CORN SHELLER event. Hopefully will improve with time. Qualifiers: Dementia type: unspecified type Dementia behavioral disturbance: with behavioral disturbance Qualified Code(s): F03.91 - Unspecified dementia with behavioral disturbance (10) Protein-calorie malnutrition, moderate Current Visit: Yes Status: Acute Assessment and plan: TPN to be continued. (11) Bowel obstruction Current Visit: Yes Status: Resolved Qualifiers: Intestinal obstruction type: other intestinal obstruction Intestinal obstruction extent: complete Qualified Code(s): K56.691 - Other complete intestinal obstruction (12) DVT prophylaxis Current Visit: Yes Status: Acute - Time Spent With Patient Total time spent is greater than 50% in coordination of care (as documented) at patient's floor/unit and/or counseling patient: - Subjective Interval history: Ms Stinson is currently admitted for acute post op ileus following Hartmans procedure for colon mass. She is now on TPN. She remains moderate to high risk due to potential for worsening clinical status. Ms Stinson has been very agitated. She did not sleep last night. She is not eating. She is cursing and "not herself." No overt fever. WBC improving but creatinine still elevated. Blood pressure elevated as well. Lots of urine output. When given food she closes mouth and turns away. - Constitutional Vitals: Temp Pulse Resp BP Pulse Ox 99.4 F 95 20 172/93 95 05/01/18 07:45 05/01/18 07:45 05/01/18 07:45 05/01/18 07:45 05/01/18 07:45 General appearance: Present: A&O X 1. Absent: answers questions appropriately - Head Head exam: Present: atraumatic, normocephalic - Eye Eye exam: Present: EOMI, conjuntiva pink - ENT ENT exam: Present: mucous membranes dry - Respiratory Respiratory exam: Present: decreased breath sounds, rhonchi. Absent: rales, wheezes - Cardiovascular Cardiovascular exam: Present: RRR. Absent: systolic murmur, tachycardia - GI/Abdominal GI/Abdominal exam: Present: normal bowel sounds, soft, tenderness - Extremities Exam Extremities exam: Present: tenderness, warm Additional comments: Tender RUE with superficial clots. - Neurological Exam Neurological exam: Present: alert - Skin Skin exam: Present: dry, warm Internal Medicine: Result - Labs CBC & Chem 7: 05/01/18 03:25 05/01/18 03:25 Labs: Short CBC 05/01/18 Range/Units 03:25 WBC 12.6 H (4.3-11.1) K/mcL Hgb 9.8 L (11.5-15.4) g/dL Hct 29.5 L (35.3-44.9) % Plt Count 333 (140-400) K/mcL BMP 05/01/18 03:25 Sodium 138 Potassium 3.8 Chloride 107 Carbon Dioxide 25 BUN 30 H Creatinine 1.45 H Glucose 112 H Calcium 7.9 L - ABG Interpretation ABG results: PT/INR, D-dimer PT 14.2 Seconds (9.4-12.1) H 04/19/18 04:19 - VTE Documentation of Mechanical Device: Intermittent pneumatic compression device Consult Discharge Plan - Plan Additional Instructions: continue current medications for calm/agitation, and to keep pt comfortable and redirectable Referrals: Albertina Heurta MD [Primary Care Provider] -
[2018-05-01] MEDS ORDERED: Calcium Gluconate 2,000 MG in 0.9 % Sodium Chloride 100 ML IVPB ONE (08:48)
[2018-05-01] MEDS: amLODIPine 5 MG TABLET PO SCH (09:32)
[2018-05-01] MEDS: Megestrol Acetate 400 MG/10 ML UDC PO SCH (09:33)
[2018-05-01] MEDS: Piperacillin/Tazobactam 3.375 GM in 0.9 % Sodium Chloride Mini Bag 100 ML IVPB SCH ×2 (09:33→21:10)
--- NOTE | 2018-05-01 11:13 | General Surgery Progress Note ---
Date of Encounter: 05/01/18 Time of Encounter: 11:11 - Assessment and Plan (1) Status post Sunny's procedure Current Visit: Yes Status: Acute patient is doing well from surgical standpoint still refusing to eat, will try fulls with ensure for all meals patient will be placed up in chair for all meals, ok to give ice cream, encourage po intake incision healing well colostomy pink and functioning appropriate, output + (2) Dementia Current Visit: Yes Status: Chronic patient confused with dementia at baseline discussed with family that undergoing hospitalization and surgery she can have an acute exaccerbation of her confusion and can even progress with her confusion to a new norm, expressed understanding patient is unlikely able to return home at discharge, likely need rehab or snf, discussed possible LTAC, they would like to talk to social work regarding this Qualifiers: Dementia type: unspecified type Dementia behavioral disturbance: with behavioral disturbance Qualified Code(s): F03.91 - Unspecified dementia with behavioral disturbance (3) Urinary retention Current Visit: Yes Status: Acute continue with rios continue flomax Subjective Narrative: patient still confused and agitated when try to talk with patient, daughters are present and state she was up in chair this am and ate half a thing of vanilla icecream Objective Vital Signs - Last 8 Hours Temp Pulse Resp BP Pulse Ox 05/01/18 07:45 99.4 F 95 20 172/93 95 Intake and Output 04/30/18 05/01/18 05/01/18 23:59 07:59 15:59 Intake Total 1000 / 1000 350 / 350 Output Total 1800 / 1800 1850 / 1850 Balance -800 / -800 -1500 / -1500 Intake: IV Fluids 1000 / 1000 350 / 350 Lactated Ringers 1,000 ML @ 75 1000 / 1000 mls/hr IVC .[id number] REMBERTO Rx#: [id number] Intralipid 20% 250 ML @ 21 mls/ 250 / 250 hr IVPB DAILY@1700 REMBERTO Rx#: [id number] Zosyn 3.375 GM In 0.9 % Sodium 100 / 100 Chloride (Mini-Bag +) 100 ML @ 25 mls/hr IVPB Q12H REMBERTO Rx#: [id number] Oral 0 / 0 0 / 0 Output: Stool 100 / 100 0 / 0 Catheter 1700 / 1700 1850 / 1850 Other: Meal Dinner Percent of Meal Consumed 0% Weight 84 kg Blood Glucose* 127 137 Patient Weight 05/01/18 23:59 Weight 84 kg - General physical appearance well developed, well nourished, no distress, obese - Eyes PERRL, normal ocular movement - ENT normal mucosa, normocephalic - Neck Neck exam: trachea midline - Respiratory normal expansion, clear to auscultation - Cardiovascular Cardiovascular exam: Present: RRR - Abdomen Abdomen: Present: bowel sounds present, soft, non tender. Absent: distended, guarding, rebound Additional Comments: colostomy - pink, functioning well - Incision Incision: Present: clean and dry, intact - Integumentary no growths - Neurologic CN 2-12 grossly intact - Musculoskeletal normal posture - Psychiatric other (confused, agitated) - Labs 05/01/18 03:25 05/01/18 03:25 Diabetes panel 05/01/18 Range/Units 03:25 Sodium 138 (136-145) mEq/L Potassium 3.8 (3.5-5.1) mEq/L Chloride 107 (98-107) mEq/L Carbon Dioxide 25 (23-29) mEq/L BUN 30 H (8-23) mg/dL Creatinine 1.45 H (0.60-1.20) mg/dL Glucose 112 H (70-105) mg/dL Calcium 7.9 L (8.6-10.3) mg/dL Calcium panel 05/01/18 Range/Units 03:25 Calcium 7.9 L (8.6-10.3) mg/dL Phosphorus 3.0 (2.7-4.5) mg/dL Pituitary panel 05/01/18 Range/Units 03:25 Sodium 138 (136-145) mEq/L Potassium 3.8 (3.5-5.1) mEq/L Chloride 107 (98-107) mEq/L Carbon Dioxide 25 (23-29) mEq/L BUN 30 H (8-23) mg/dL Creatinine 1.45 H (0.60-1.20) mg/dL Glucose 112 H (70-105) mg/dL Calcium 7.9 L (8.6-10.3) mg/dL Adrenal panel 05/01/18 Range/Units 03:25 Sodium 138 (136-145) mEq/L Potassium 3.8 (3.5-5.1) mEq/L Chloride 107 (98-107) mEq/L Carbon Dioxide 25 (23-29) mEq/L BUN 30 H (8-23) mg/dL Creatinine 1.45 H (0.60-1.20) mg/dL Glucose 112 H (70-105) mg/dL Calcium 7.9 L (8.6-10.3) mg/dL - VTE Documentation of Mechanical Device: Intermittent pneumatic compression device Consult Discharge Plan - Plan Additional Instructions: continue current medications for calm/agitation, and to keep pt comfortable and redirectable Referrals: Albertina Huerta MD [Primary Care Provider] -
[2018-05-01] MEDS: Clinimix E 5%-15% SOLUTION 2,000 ML with MVI, adult with vitamin K 10 ML IVC SCH (16:34)
[2018-05-01] MEDS: traZODone 50 MG TABLET PO SCH (21:14)
[2018-05-01] MEDS: Famotidine 20 MG TABLET PO SCH (21:14)
[2018-05-02 03:48] LABS: Hematocrit 29.9 % (35.3-44.9); Mean Corpuscular HGB Conc 33.4 g/dL (31.6-35.5); Mean Corpuscular Hemoglobin 28.2 pg (28.0-33.3); Mean Corpuscular Volume 84.2 fL (83.0-100.0); Mean Platelet Volume 9.9 fL (9.4-12.4); Platelet Count 343 K/mcL (140-400); Red Blood Count 3.55 M/mcL (3.82-4.97); Red Cell Distribution Width 15.1 % (11.5-14.5)
[2018-05-02 04:04] LABS: Calcium 8.2 mg/dL (8.6-10.3); Magnesium 1.7 mg/dL (1.6-2.6); Phosphorous 4.1 mg/dL (2.7-4.5); Potassium 3.7 mEq/L (3.5-5.1)
[2018-05-02] MEDS: Insulin LISPRO 300 UNITS/3 ML VIAL SQ SCH ×5 (04:15→23:56)
[2018-05-02] MEDS: *HR* Heparin 5,000 UNIT/ML VIAL SQ SCH ×2 (05:42→17:14)
--- NOTE | 2018-05-02 09:06 | General Surgery Progress Note ---
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 Sigmoid colectomy with end colostomy POD#14 as above. Pathology acute on chronic diverticulitis. CEA unremarkable Clinical course thus far has included a period of being on CLD postoperatively, but on day 3 there was concern for aspiration. RESOURCE DEVELOPMENT DIRECTOR recommended thickened liquids and she was returned to a diet. On 04/23/2018 she was sitting up at bedside and appeared to be doing well, but on 04/24 she developed a postoperative ileus and an NG was placed with return of 1L. NG output is decreasing. Norton catheter was replaced (04/25 due to decreased urinary output) and RN noted 1200 ML's return. She continued to have vomiting with her need her gastric tube to a Norton bag, and she was returned to suction. On 04/[address] of the abdomen and pelvis was completed to rule out any possibility of intra-abdominal sepsis which noted scattered dilated loops of small and large bowel, no transition point seen, scattered abdominal and pelvic ascites most likely secondary to fluid overload, cholelithiasis, focal nodule projecting over the left kidney not clearly a simple cyst. ID is following and changed IV ATBX to Vanc, Zosyn, and Micofungin 04/29 her NG remains to suction at this time and has had minimal output. She has had greater than 600 ML liquid output in her colostomy today. Her stoma is pink and moist. She does remain confused and noted sitters at bedside bilateral wrist restraints applied. Her right arm is significantly edematous when compared to the left arm. Her PICC is in the right arm. The bedside RN notes that they did infuse Zosyn and a peripheral IV and ill filtrated however the Zosyn amount is only 100 mL. BL UE dopplers negative for DVT 05/01/2018 she was started on FLD. She is not eating or drinking much. She is a poor candidate for a PEG given that she pulls line, requires a sitter and restraints. Dr. Herrera discussed with family that undergoing hospitalization and surgery she can have an acute exaccerbation of her confusion and can even progress with her confusion to a new norm, expressed understanding; patient is unlikely able to return home at discharge, likely need rehab or snf, discussed possible LTAC, they would like to talk to social work regarding this. WBC overall downtrending. [place] remain. Incision is grossly WNL. Plan: continue supportive care and discomfort management postoperative ileus: resolving. having output and has not required any further doses of methylnaltrexone. Reglan as needed Megace per primary team PICC/TPN for protein malnutrition; calorie count daily wound care per bedside RN: remove dressing. Wash midline incision with antibacterial soap. May cover with a dry dressing or leave open to air. Ostomy care per bedside RN Place abdominal binder loosely to protect colostomy given confusion. Continue PT/OT, GI, and DVT prophylaxis D/c planning per primary care as above. Qualifiers: Intestinal obstruction type: other intestinal obstruction Intestinal obstruction extent: complete Qualified Code(s): K56.691 - Other complete intestinal obstruction (2) Arm edema Current Visit: Yes Status: Acute PIV infiltration vs concern for DVT BL UE dopplers to r/o DVT: Superficial thrombus noted. Continue heparin SQ per primary team in the interim (3) Leukocytosis Current Visit: Yes Status: Acute Suspect pulm vs urinary in nature. No evidence for concern for abdominal source. Managment per ID Qualifiers: Leukocytosis type: unspecified Qualified Code(s): D72.829 - Elevated white blood cell count, unspecified (4) Mass of colon Current Visit: Yes Status: Resolved See assessment and plan above (5) Dementia Current Visit: Yes Status: Chronic See a/p above Qualifiers: Dementia type: unspecified type Dementia behavioral disturbance: with behavioral disturbance Qualified Code(s): F03.91 - Unspecified dementia with behavioral disturbance (6) Protein-calorie malnutrition, moderate Current Visit: Yes Status: Acute Postoperative ileus remains but improving. See a/p above PICC and TPN (7) Postoperative ileus Current Visit: Yes Status: Acute Prolonged postoperative ileus. See assessment and plan above. Subjective Narrative: Confused. Sitter at bedside. Does not answer subjective questions. Objective Vital Signs - Last 8 Hours Temp Pulse Resp BP Pulse Ox 05/02/18 07:45 98.4 F 100 16 133/72 92 05/02/18 06:49 98.4 F 100 16 133/72 92 05/02/18 05:01 99.1 F 115 20 129/71 95 05/02/18 03:08 99.3 F 111 20 132/75 95 Intake and Output 05/01/18 05/02/18 05/02/18 23:59 07:59 15:59 Intake Total 1787 100 / 100 Output Total 950 / 950 1300 / 1300 Balance 838 / 838 -1300 / -1300 100 / 100 Intake: IV Fluids 1787 100 / 100 Clinimix E 5%-15% SOLUTION 2, 1787 000 ML @ 83.3 mls/hr IVC .Q24H REMBERTO with M.v.i. Adult 10 ml Rx# :[id number] Zosyn 3.375 GM In 0.9 % Sodium 100 / 100 Chloride (Mini-Bag +) 100 ML @ 25 mls/hr IVPB Q12H [facility] Rx#: [id number] Oral 0 / 0 0 / 0 Output: Urine 350 / 350 Stool 100 / 100 Catheter 850 / 850 950 / 950 Other: Meal Dinner Breakfast Percent of Meal Consumed 5% 0% Blood Glucose* 136 126 116 - General physical appearance no distress, other (sitting upright in chair at bedside) - ENT normocephalic - Neck Neck exam: trachea midline - Respiratory other (decreased) - Cardiovascular Cardiovascular exam: Present: RRR - Abdomen Abdomen: Present: bowel sounds present, soft, non tender, wound (ostomy with output. Stoma is pink and moist) - Incision Incision: Present: clean and dry, intact - Neurologic normal sensation - Musculoskeletal normal posture - Psychiatric other (confused) - Labs 05/02/18 03:32 05/02/18 03:32 Diabetes panel 05/02/18 Range/Units 03:32 Sodium 138 (136-145) mEq/L Potassium 3.7 (3.5-5.1) mEq/L Chloride 104 (98-107) mEq/L Carbon Dioxide 26 (23-29) mEq/L BUN 33 H (8-23) mg/dL Creatinine 1.48 H (0.60-1.20) mg/dL Glucose 104 (70-105) mg/dL Calcium 8.2 L (8.6-10.3) mg/dL Triglycerides 144 (< 150) mg/dL Calcium panel 05/02/18 Range/Units 03:32 Calcium 8.2 L (8.6-10.3) mg/dL Phosphorus 4.1 (2.7-4.5) mg/dL Pituitary panel 05/02/18 Range/Units 03:32 Sodium 138 (136-145) mEq/L Potassium 3.7 (3.5-5.1) mEq/L Chloride 104 (98-107) mEq/L Carbon Dioxide 26 (23-29) mEq/L BUN 33 H (8-23) mg/dL Creatinine 1.48 H (0.60-1.20) mg/dL Glucose 104 (70-105) mg/dL Calcium 8.2 L (8.6-10.3) mg/dL Adrenal panel 05/02/18 Range/Units 03:32 Sodium 138 (136-145) mEq/L Potassium 3.7 (3.5-5.1) mEq/L Chloride 104 (98-107) mEq/L Carbon Dioxide 26 (23-29) mEq/L BUN 33 H (8-23) mg/dL Creatinine 1.48 H (0.60-1.20) mg/dL Glucose 104 (70-105) mg/dL Calcium 8.2 L (8.6-10.3) mg/dL - VTE Documentation of Mechanical Device: Intermittent pneumatic compression device Consult Discharge Plan - Plan Additional Instructions: continue current medications for calm/agitation, and to keep pt comfortable and redirectable Referrals: Albertina Huerta MD [Primary Care Provider] - <Moira Herrera - Last Filed: 05/02/18 11:52> Date of Encounter: 05/02/18 - Assessment and Plan (1) Status post Sunny's procedure Current Visit: Yes Status: Acute (2) Dementia Current Visit: Yes Status: Chronic Qualifiers: Dementia type: unspecified type Dementia behavioral disturbance: with behavioral disturbance Qualified Code(s): F03.91 - Unspecified dementia with behavioral disturbance (3) Urinary retention Current Visit: Yes Status: Acute Objective Vital Signs - Last 8 Hours Temp Pulse Resp BP Pulse Ox 05/02/18 10:53 98.2 F 96 16 140/89 96 05/02/18 07:45 98.4 F 100 16 133/72 92 05/02/18 06:49 98.4 F 100 16 133/72 92 05/02/18 05:01 99.1 F 115 20 129/71 95 Intake and Output 05/01/18 05/02/18 05/02/18 23:59 07:59 15:59 Intake Total 1787 350 / 350 Output Total 950 / 950 1300 / 1300 Balance 838 / 838 -1300 / -1300 350 / 350 Intake: IV Fluids 1787 350 / 350 Clinimix E 5%-15% SOLUTION 2, 1787 000 ML @ 83.3 mls/hr IVC .Q24H REMBERTO with M.v.i. Adult 10 ml Rx# :[id number] Intralipid 20% 250 ML @ 21 mls/ 250 / 250 hr IVPB DAILY@1700 REMBERTO Rx#: [id number] Zosyn 3.375 GM In 0.9 % Sodium 100 / 100 Chloride (Mini-Bag +) 100 ML @ 25 mls/hr IVPB Q12H [facility] Rx#: [id number] Oral 0 / 0 0 / 0 Output: Urine 350 / 350 Stool 100 / 100 Catheter 850 / 850 950 / 950 Other: Meal Dinner Breakfast Percent of Meal Consumed 5% 0% Blood Glucose* 136 126 114 - Labs 05/02/18 03:32 05/02/18 03:32 Diabetes panel 05/02/18 Range/Units 03:32 Sodium 138 (136-145) mEq/L Potassium 3.7 (3.5-5.1) mEq/L Chloride 104 (98-107) mEq/L Carbon Dioxide 26 (23-29) mEq/L BUN 33 H (8-23) mg/dL Creatinine 1.48 H (0.60-1.20) mg/dL Glucose 104 (70-105) mg/dL Calcium 8.2 L (8.6-10.3) mg/dL Triglycerides 144 (< 150) mg/dL Calcium panel 05/02/18 Range/Units 03:32 Calcium 8.2 L (8.6-10.3) mg/dL Phosphorus 4.1 (2.7-4.5) mg/dL Pituitary panel 05/02/18 Range/Units 03:32 Sodium 138 (136-145) mEq/L Potassium 3.7 (3.5-5.1) mEq/L Chloride 104 (98-107) mEq/L Carbon Dioxide 26 (23-29) mEq/L BUN 33 H (8-23) mg/dL Creatinine 1.48 H (0.60-1.20) mg/dL Glucose 104 (70-105) mg/dL Calcium 8.2 L (8.6-10.3) mg/dL Adrenal panel 05/02/18 Range/Units 03:32 Sodium 138 (136-145) mEq/L Potassium 3.7 (3.5-5.1) mEq/L Chloride 104 (98-107) mEq/L Carbon Dioxide 26 (23-29) mEq/L BUN 33 H (8-23) mg/dL Creatinine 1.48 H (0.60-1.20) mg/dL Glucose 104 (70-105) mg/dL Calcium 8.2 L (8.6-10.3) mg/dL - Attending Attestation I have personally performed a face to face evaluation on this patient. I have reviewed and agree with the care plan. History and Exam by me shows:
[2018-05-02] MEDS: amLODIPine 5 MG TABLET PO SCH (09:18)
[2018-05-02] MEDS: Famotidine 20 MG TABLET PO SCH (09:18)
[2018-05-02] MEDS: Megestrol Acetate 400 MG/10 ML UDC PO SCH (09:20)
[2018-05-02] MEDS: Piperacillin/Tazobactam 3.375 GM in 0.9 % Sodium Chloride Mini Bag 100 ML IVPB SCH ×2 (09:25→17:07)
--- NOTE | 2018-05-02 11:37 | Infectious Disease Progress No ---
Date of Encounter: 05/02/18 Time of Encounter: 11:34 - Assessment and Plan (1) Sepsis Current Visit: Yes Status: Acute The patient had three SIRS criteria (tachycardia, leukocytosis, and fever). Etiology unclear: intra-abdominal (peritonitis) vs. pulmonary (pneumonia) vs. non-infectious. The patient did have some spillage of bowel contents into the abdomen intra-op, but CT negative for abscess or fluid collection. She continues to have persistent leukocytosis, but appears to be trending down. She continues to have persistent tachycardia, but appears improved. She has been afebrile. Blood culture drawn 04/22/18 is negative x 1 set. Repeat blood culture drawn 04/24/18 is negative x 1 set. Repeat blood cultures drawn 04/25/18 are negative x 2 sets. Additional blood cultures drawn 04/27/18 are negative x 2 sets. The patient's mental status makes it very difficult to obtain ROS information from her. CT of the abdomen and pelvis showed findings consistent with ileus and some ascites, but no other acute intra-abdominal process. It did show adjacent consolidation at the lung bases. CT chest shows bilateral upper lobe nodular opacities, concerning for infectious process. Urinalysis negative. Culture grew out only yeast. The patient does have a PICC line, but clinically does not appear infected. Surgical incision looks great. Check procalcitonin. --> mildly elevated at 0.16. Check peripheral smear. --> reveals reactive leukocytosis Amylase and lipase elevated, but abdominal exam benign and CT negative for pancreatitis. The patient does not appear to have any URI symptoms. S. pneumo and Legionella UATs negative. Vancomycin stopped due to lack of MRSA on cultures and worsening GEORGI. Continue Zosyn 3.375 grams IV Q8H (day 8). Micafungin discontinued. Monitor renal function and for drug toxicity and dose-adjust antibiotics. Duration of treatment depends on the clinical picture. Qualifiers: Sepsis type: sepsis due to unspecified organism Qualified Code(s): A41.9 - Sepsis, unspecified organism (2) Leukocytosis Current Visit: Yes Status: Acute Etiology unclear. Neutrophilic predominance. Improved. Workup as above. Continue to trend. Qualifiers: Leukocytosis type: unspecified Qualified Code(s): D72.829 - Elevated white blood cell count, unspecified (3) Abnormal CT scan, chest Current Visit: Yes Status: Acute CT of the chest completed 04/27/18 shows moderate bilateral pleural effusions with bibasilar lung opacities likely representing atelectasis. It also shows upper lobe sub-solid nodular opacities that are suspected to be infectious. Recommend pulmonary to evaluate. (4) Encephalopathy Current Visit: Yes Status: Acute Etiology unclear, but likely multifactorial: sepsis + anesthesia + pain medication +/- other. Appears improved. Continue to monitor closely. (5) Ileus following gastrointestinal surgery Current Visit: Yes Status: Resolved CT of the abdomen and pelvis completed 04/27/18 showed findings consistent with post-op ileus. Could be contributing to leukocytosis. Management per the surgery team. (6) Mass of colon Current Visit: Yes Status: Resolved CT of the abdomen and pelvis completed 04/18/18 showed a suspicious infiltrating mass of the colon with obstruction. Transferred to [facility]. Surgery consulted and following. 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 Operative note reviewed. Pathology negative for malignancy, but did show acute on chronic diverticulosis with abscess and giant cell formation. Post-op care per the general surgery team. (7) Bowel obstruction Current Visit: Yes Status: Resolved Secondary to colonic mass. Resolved. Qualifiers: Intestinal obstruction type: other intestinal obstruction Intestinal obstruction extent: complete Qualified Code(s): K56.691 - Other complete intestinal obstruction (8) Hypokalemia Current Visit: Yes Status: Resolved Replacement per the primary team. (9) HTN (hypertension) Current Visit: Yes Status: Chronic Qualifiers: Hypertension type: essential hypertension Qualified Code(s): I10 - Essential (primary) hypertension (10) HLD (hyperlipidemia) Current Visit: Yes Status: Chronic Qualifiers: Hyperlipidemia type: mixed hyperlipidemia Qualified Code(s): E78.2 - Mixed hyperlipidemia (11) Hypothyroidism Current Visit: Yes Status: Chronic Qualifiers: Hypothyroidism type: acquired Qualified Code(s): E03.9 - Hypothyroidism, unspecified (12) Dementia Current Visit: Yes Status: Chronic Qualifiers: Dementia type: unspecified type Dementia behavioral disturbance: with behavioral disturbance Qualified Code(s): F03.91 - Unspecified dementia with behavioral disturbance (13) GEORGI (acute kidney injury) Current Visit: Yes Status: Acute Etiology not clear. Likely multifactorial. Monitor kidney function closely Continue to trend. (14) Superficial venous thrombosis of right arm Current Visit: Yes Status: Acute Venous doppler study shows SVT in the right basilic and right cephalic veins. Supportive care. Anticoagulation per the primary team. - Subjective Interval history: Patient seen and examined. No acute events noted overnight. Patient more awake this morning. Denies chest pain, shortness of breath, abdominal pain, or nausea/ vomiting. Able to follow some commands. Sitter remains at bedside with BUE wrist restraints noted. Infect Dis PN-Objective Data - Labs CBC & Chem 7: 05/02/18 03:32 05/02/18 03:32 Labs: Laboratory Results - last 24 hr 05/01/18 05/01/18 05/01/18 07:38 11:19 15:55 WBC RBC Hgb Hct MCV MCH MCHC RDW Plt Count MPV Sodium Potassium Chloride Carbon Dioxide BUN Creatinine Est GFR ( Amer) Est GFR (Non-Af Amer) BUN/Creatinine Ratio Glucose POC Glucose 137 H 129 H 127 H Calculated Osmolality Calcium Phosphorus Magnesium Triglycerides 05/01/18 05/01/18 05/02/18 20:32 23:24 03:32 WBC RBC Hgb Hct MCV MCH MCHC RDW Plt Count MPV Sodium 138 Potassium 3.7 Chloride 104 Carbon Dioxide 26 BUN 33 H Creatinine 1.48 H Est GFR ( Amer) 41 L Est GFR (Non-Af Amer) 34 L BUN/Creatinine Ratio 22 Glucose 104 POC Glucose 123 H 136 H Calculated Osmolality 294 Calcium 8.2 L Phosphorus 4.1 Magnesium 1.7 Triglycerides 144 05/02/18 05/02/18 03:32 04:13 WBC 13.0 H RBC 3.55 L Hgb 10.0 L Hct 29.9 L MCV 84.2 MCH 28.2 MCHC 33.4 RDW 15.1 H Plt Count 343 MPV 9.9 Sodium Potassium Chloride Carbon Dioxide BUN Creatinine Est GFR ( Amer) Est GFR (Non-Af Amer) BUN/Creatinine Ratio Glucose POC Glucose 126 H Calculated Osmolality Calcium Phosphorus Magnesium Triglycerides Cultures: Cultures 04/27/18 10:25 Urine Culture - Final Urine,Catheterized Beatris albicans 04/25/18 07:55 Blood Culture - Final Peripheral Venipuncture No growth. Final report. 04/25/18 07:57 Blood Culture - Final Peripheral Venipuncture No growth. Final report. 04/24/18 05:27 Blood Culture - Final Peripheral Venipuncture No growth. Final report. 04/27/18 10:29 Legionella Antigen - Final Urine,[place] Streptococcus pneumoniae Antigen (M - Final 04/27/18 16:10 Blood Culture - Preliminary Peripheral Venipuncture Culture is incubating and being continuously monitored for growth. Final report to follow. 04/27/18 16:10 Blood Culture - Preliminary Peripheral Venipuncture Culture is incubating and being continuously monitored for growth. Final report to follow. 04/22/18 08:24 Blood Culture - Final Peripheral Venipuncture No growth. Final report. Serology 04/28/18 04/27/18 04/25/18 Range/Units 14:15 10:35 08:10 Urine Color Dark Yellow Yellow (Yellow) Urine Clarity Cloudy A Clear (Clear) Urine pH 6.0 6.0 (5.0-8.0) pH Units Ur Specific [place] > 1.030 H 1.019 (1.010-1.025) Urine Protein 100 H Negative (Neg-Trace) mg/dL Urine Glucose (UA) Normal Normal (Normal) mg/dL Urine Ketones Negative Trace H (Negative) mg/dL Urine Blood Small H Negative (Negative) Urine Nitrite Negative Negative (Negative) Urine Bilirubin Negative Negative (Negative) Urine Urobilinogen Normal Normal (Normal) mg/dL Ur Leukocyte Esterase Small H Negative (Negative) Urine Microscopic RBC 3-5 H (0-3) per hpf Urine Microscopic WBC 50-100 H (0-3) per hpf Ur Squamous Epith Cells Many H (None-Few) per lpf Urine Bacteria Many H (None-Few) per hpf Hyaline Casts None Seen (None-Few) per lpf Urine Yeast Many H (None Seen) per hpf Ur Culture Indicated? (NO) Chlamy pneumoniae PCR Not Detected (Not Detect) Adenovirus (PCR) Not Detected (Not Detect) B. pertussis DNA (PCR) Not Detected (Not Detect) B.parapertussis DNA PCR Not Detected (Not Detect) Coronavirus OC43 (PCR) Not Detected (Not Detect) Coronavirus HKU1 (PCR) Not Detected (Not Detect) Coronavirus 229E (PCR) Not Detected (Not Detect) Coronavirus NL63 (PCR) Not Detected (Not Detect) Human Metapneumovir PCR Not Detected (Not Detect) Influenza A (H1) PCR Not Detected (Not Detect) Influ A (H1N1/09) PCR Not Detected (Not Detect) Influenza A (H3) PCR Not Detected (Not Detect) Influenza A Untype (PCR) Not Detected (Not Detect) Influenza Type B (PCR) Not Detected (Not Detect) M.pneumoniae DNA (PCR) Not Detected (Not Detect) Parainfluenza 1 (PCR) Not Detected (Not Detect) Parainfluenza 2 (PCR) Not Detected (Not Detect) Parainfluenza 3 (PCR) Not Detected (Not Detect) Parainfluenza 4 (PCR) Not Detected (Not Detect) RSV (PCR) Not Detected (Not Detect) Entero/Rhino (PCR) Not Detected (Not Detect) 04/22/18 Range/Units 09:16 Urine Color Dark Yellow (Yellow) Urine Clarity Clear (Clear) Urine pH 5.5 (5.0-8.0) pH Units Ur Specific [place] > 1.030 H (1.010-1.025) Urine Protein Trace (Neg-Trace) mg/dL Urine Glucose (UA) Normal (Normal) mg/dL Urine Ketones 15 H (Negative) mg/dL Urine Blood Negative (Negative) Urine Nitrite Positive A (Negative) Urine Bilirubin Negative (Negative) Urine Urobilinogen Normal (Normal) mg/dL Ur Leukocyte Esterase Trace H (Negative) Urine Microscopic RBC 5-15 H (0-3) per hpf Urine Microscopic WBC 0-3 (0-3) per hpf Ur Squamous Epith Cells Many H (None-Few) per lpf Urine Bacteria None Seen (None-Few) per hpf Hyaline Casts None Seen (None-Few) per lpf Urine Yeast (None Seen) per hpf Ur Culture Indicated? NO. A (NO) Chlamy pneumoniae PCR (Not Detect) Adenovirus (PCR) (Not Detect) B. pertussis DNA (PCR) (Not Detect) B.parapertussis DNA PCR (Not Detect) Coronavirus OC43 (PCR) (Not Detect) Coronavirus HKU1 (PCR) (Not Detect) Coronavirus 229E (PCR) (Not Detect) Coronavirus NL63 (PCR) (Not Detect) Human Metapneumovir PCR (Not Detect) Influenza A (H1) PCR (Not Detect) Influ A (H1N1/09) PCR (Not Detect) Influenza A (H3) PCR (Not Detect) Influenza A Untype (PCR) (Not Detect) Influenza Type B (PCR) (Not Detect) M.pneumoniae DNA (PCR) (Not Detect) Parainfluenza 1 (PCR) (Not Detect) Parainfluenza 2 (PCR) (Not Detect) Parainfluenza 3 (PCR) (Not Detect) Parainfluenza 4 (PCR) (Not Detect) RSV (PCR) (Not Detect) Entero/Rhino (PCR) (Not Detect) - Impressions Impressions Retroperitoneum Ultrasound 05/02/18 08:00 IMPRESSION: No hydronephrosis. D/ / Michael Mills MD / Michael Mills MD Interpreting Provider: Michael Mills MD Exam - Constitutional Vitals: Temp Pulse Resp BP Pulse Ox 98.2 F 96 16 140/89 96 05/02/18 10:53 05/02/18 10:53 05/02/18 10:53 05/02/18 10:53 05/02/18 10:53 General appearance: average body habitus, cooperative, no acute distress - Head Head exam: Present: atraumatic, normal inspection, normocephalic - Eye Eye exam: Present: normal appearance, PERRL. Absent: EOMI (Unable to assess. Patient noncompliant with exam.) - ENT ENT exam: Present: mucous membranes dry - Neck Neck exam: Present: normal inspection - Respiratory Respiratory exam: Present: CTAB. Absent: rales, respiratory distress, rhonchi, wheezes - Cardiovascular Cardiovascular exam: Present: RRR, +S1, +S2 - GI/Abdominal GI/Abdominal exam: Present: normal bowel sounds, soft. 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 No erythema, warmth, or drainage noted. Colostomy noted to the LLQ with liquid green stool noted in the collection bag. [place] catheter noted to be draining clear yellow urine. - Extremities Exam Extremities exam: Present: normal inspection. Absent: joint swelling, pedal edema, tenderness - Neurological Exam Neurological exam: Present: alert, no focal deficits (MAHMOOD x 4 spontaneously, but does not follow commands.). Absent: oriented X3 (Oriented to person only.) - Psychiatric Psychiatric exam: Present: normal affect, normal mood - Skin Skin exam: Present: dry, intact, normal color, warm - Additional findings Additional findings: PICC line noted to the RUE with transparent dressing C/D/I. RUE mildly edematous, erythema improved. - VTE Documentation of Mechanical Device: Intermittent pneumatic compression device Consult Discharge Plan - Plan Additional Instructions: continue current medications for calm/agitation, and to keep pt comfortable and redirectable Referrals: Albertina Huerta MD [Primary Care Provider] - - Attending Attestation I examined this patient and my medical decision-making was reviewed with the Resident Physician. I agree with the documented findings, disposition and treatment plan as described except to the extent set forth below.
--- NOTE | 2018-05-02 14:22 | Internal Med Progress Note ---
Date of Encounter: 05/02/18 Time of Encounter: 07:30 - Assessment and plan (1) Acute renal failure due to tubular necrosis Current Visit: Yes Status: Suspected Assessment and plan: Creatinine about the same. May be baseline. Ultrasound neg for obstruction and urine output good. Avoid nephrotoxins. (2) Hypokalemia Current Visit: Yes Status: Resolved Assessment and plan: Improved today. Continue current amount in TPN and follow. (3) Hypocalcemia Current Visit: Yes Status: Acute Assessment and plan: Replaced yesterday. Recheck tomorrow. (4) Ileus following gastrointestinal surgery Current Visit: Yes Status: Resolved (5) Leukocytosis Current Visit: Yes Status: Acute Assessment and plan: WBC stable today. Qualifiers: Leukocytosis type: unspecified Qualified Code(s): D72.829 - Elevated white blood cell count, unspecified (6) HTN (hypertension) Current Visit: Yes Status: Chronic Assessment and plan: Seems to be better controlled today. Continue to follow. Qualifiers: Hypertension type: essential hypertension Qualified Code(s): I10 - Essential (primary) hypertension (7) HLD (hyperlipidemia) Current Visit: Yes Status: Chronic Assessment and plan: Refused Zocor. Will d/c for now. Qualifiers: Hyperlipidemia type: mixed hyperlipidemia Qualified Code(s): E78.2 - Mixed hyperlipidemia (8) Hypothyroidism Current Visit: Yes Status: Chronic Assessment and plan: On PO supplement. Qualifiers: Hypothyroidism type: acquired Qualified Code(s): E03.9 - Hypothyroidism, unspecified (9) Dementia Current Visit: Yes Status: Chronic Assessment and plan: On Trazodone at night and PRN Haldol. Increase activity. Qualifiers: Dementia type: unspecified type Dementia behavioral disturbance: with behavioral disturbance Qualified Code(s): F03.91 - Unspecified dementia with behavioral disturbance (10) Protein-calorie malnutrition, moderate Current Visit: Yes Status: Acute Assessment and plan: TPN to be continued. (11) Bowel obstruction Current Visit: Yes Status: Resolved Qualifiers: Intestinal obstruction type: other intestinal obstruction Intestinal obstruction extent: complete Qualified Code(s): K56.691 - Other complete intestinal obstruction (12) DVT prophylaxis Current Visit: Yes Status: Acute - Time Spent With Patient Total time spent is greater than 50% in coordination of care (as documented) at patient's floor/unit and/or counseling patient: - Subjective Interval history: Ms Stinson is currently admitted for acute post op ileus following Hartmans procedure for colon mass. She is now on TPN. She remains moderate to high risk due to potential for worsening clinical status. Ms Stinson is restless but more directable at this time. No fever or chills. Still not eating much. Stool output not excessive. Creatinine still elevated - ? new baseline. Planning to get up to chair today to try to eat. Still on TPN. - Constitutional Vitals: Temp Pulse Resp BP Pulse Ox 98.2 F 96 16 140/89 96 05/02/18 10:53 05/02/18 10:53 05/02/18 10:53 05/02/18 10:53 05/02/18 10:53 General appearance: Present: A&O X 1. Absent: answers questions appropriately - Head Head exam: Present: normocephalic - Eye Eye exam: Present: conjuntiva pink - ENT ENT exam: Present: mucous membranes dry - Respiratory Respiratory exam: Present: rhonchi. Absent: rales, wheezes Additional comments: Does not appear to be in distress. - Cardiovascular Cardiovascular exam: Present: RRR. Absent: tachycardia - GI/Abdominal GI/Abdominal exam: Present: normal bowel sounds, soft - Extremities Exam Extremities exam: Present: warm. Absent: tenderness - Neurological Exam Neurological exam: Present: alert - Skin Skin exam: Present: dry, warm Internal Medicine: Result - Labs CBC & Chem 7: 05/02/18 03:32 05/02/18 03:32 Labs: Short CBC 05/02/18 Range/Units 03:32 WBC 13.0 H (4.3-11.1) K/mcL Hgb 10.0 L (11.5-15.4) g/dL Hct 29.9 L (35.3-44.9) % Plt Count 343 (140-400) K/mcL BMP 05/02/18 03:32 Sodium 138 Potassium 3.7 Chloride 104 Carbon Dioxide 26 BUN 33 H Creatinine 1.48 H Glucose 104 Calcium 8.2 L - ABG Interpretation ABG results: PT/INR, D-dimer PT 14.2 Seconds (9.4-12.1) H 04/19/18 04:19 - Impressions Impressions Retroperitoneum Ultrasound 05/02/18 08:00 IMPRESSION: No hydronephrosis. D/ / Michael Mills MD / Michael Mills MD Interpreting Provider: Michael Mills MD - VTE Documentation of Mechanical Device: Intermittent pneumatic compression device Consult Discharge Plan - Plan Additional Instructions: continue current medications for calm/agitation, and to keep pt comfortable and redirectable Referrals: Albertina Huerta MD [Primary Care Provider] -
[2018-05-02] MEDS ORDERED: Clinimix E 5%-15% SOLUTION 2,000 ML with MVI, adult with vitamin K 10 ML IVC SCH (17:00)
[2018-05-02] MEDS: Clinimix E 5%-15% SOLUTION 2,000 ML with MVI, adult with vitamin K 10 ML IVC SCH (17:20)
[2018-05-02] MEDS: traZODone 50 MG TABLET PO SCH (20:17)
[2018-05-03] MEDS: Piperacillin/Tazobactam 3.375 GM in 0.9 % Sodium Chloride Mini Bag 100 ML IVPB SCH ×3 (02:42→17:09)
[2018-05-03 05:43] LABS: Basophils # 0.1 K/mcL (0.0-0.2); Basophils % 0.4 %; Eosinophils # 0.3 K/mcL (0.0-0.6); Eosinophils % 2.4 %; Hematocrit 28.8 % (35.3-44.9); Hemoglobin 9.6 g/dL (11.5-15.4); Immature Granulocytes % 1.3 % (0-4); Lymphocytes # 1.7 K/mcL (0.6-4.6); Lymphocytes % 13.9 %; Mean Corpuscular HGB Conc 33.3 g/dL (31.6-35.5); Mean Corpuscular Hemoglobin 28.3 pg (28.0-33.3); Mean Platelet Volume 9.8 fL (9.4-12.4); Monocytes # 1.4 K/mcL (0.0-1.3); Monocytes % 11.3 %; Neutrophils # 8.4 K/mcL (1.6-8.9); Platelet Count 385 K/mcL (140-400); Red Blood Count 3.39 M/mcL (3.82-4.97); Red Cell Distribution Width 15.6 % (11.5-14.5); Segmented Neutrophils % 70.7 %
[2018-05-03] MEDS: Insulin LISPRO 300 UNITS/3 ML VIAL SQ SCH ×3 (05:50→17:14)
[2018-05-03 06:01] LABS: Calcium 7.8 mg/dL (8.6-10.3); Magnesium 1.8 mg/dL (1.6-2.6); Phosphorous 3.9 mg/dL (2.7-4.5); Potassium 3.8 mEq/L (3.5-5.1)
[2018-05-03] MEDS: *HR* Heparin 5,000 UNIT/ML VIAL SQ SCH ×2 (06:02→17:13)
[2018-05-03] MEDS: amLODIPine 5 MG TABLET PO SCH (09:03)
[2018-05-03] MEDS: Famotidine 20 MG TABLET PO SCH (09:04)
[2018-05-03] MEDS: Megestrol Acetate 400 MG/10 ML UDC PO SCH (09:09)
--- NOTE | 2018-05-03 09:19 | General Surgery Progress Note ---
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 Sigmoid colectomy with end colostomy POD#15 as above. Pathology acute on chronic diverticulitis. CEA unremarkable prolonged postoperative ileus is resolved. She did require one dose of sub Q methyl naltrexone. She is having output in her colostomy, has not had any further episodes of nausea or vomiting, and is tolerating her PO. She is having poor intake and therefore remains on TPN. Megace has been initiated. I suspect her dementia is contributing. Sitter remains at bedside and per case management, the patient had to be placed in restraints again last night. ID is following and the patient is on IV ATBX. a CT of the abdomen and pelvis did not indicate any abdominal sources. ATBX to Vanc, Zosyn, and Micofungin 04/29 BL UE dopplers negative for DVT Plan: continue supportive care and discomfort management prolonged postoperative ileus is resolved. Continue diet as tolerated. Megace per primary team PICC/TPN for protein malnutrition; calorie count daily wound care per bedside RN: remove dressing. Wash midline incision with antibacterial soap. May cover with a dry dressing or leave open to air. May remove waleska and place Steri-Strips. Ostomy care per bedside RN Continue abdominal binder loosely to protect colostomy given confusion. Continue PT/OT, GI, and DVT prophylaxis D/c planning per primary care as above. Per CM, she will need to be consider and restraint free prior to ECF admission, but is unclear if LTAC (which would be more appropriate) would accept. Referral to [facility] noted. Qualifiers: Intestinal obstruction type: other intestinal obstruction Intestinal obstruction extent: complete Qualified Code(s): K56.691 - Other complete intestinal obstruction (2) Tachycardia Current Visit: Yes Status: Acute Patient is afebrile. She is tachycardic today. 120s. No acute distress. Management per primary team. (3) Leukocytosis Current Visit: Yes Status: Acute Suspect pulm vs urinary in nature. No evidence for concern for abdominal source. Managment per ID Qualifiers: Leukocytosis type: unspecified Qualified Code(s): D72.829 - Elevated white blood cell count, unspecified (4) Mass of colon Current Visit: Yes Status: Resolved See assessment and plan above (5) Dementia Current Visit: Yes Status: Chronic See a/p above Qualifiers: Dementia type: unspecified type Dementia behavioral disturbance: with behavioral disturbance Qualified Code(s): F03.91 - Unspecified dementia with behavioral disturbance (6) Protein-calorie malnutrition, moderate Current Visit: Yes Status: Acute Postoperative ileus remains but improving. See a/p above PICC and TPN (7) Postoperative ileus Current Visit: Yes Status: Acute Prolonged postoperative ileus. See assessment and plan above. (8) Arm edema Current Visit: Yes Status: Resolved PIV infiltration vs concern for DVT BL UE dopplers to r/o DVT: Superficial thrombus noted. Continue heparin SQ per primary team in the interim Subjective Patient reports: no new complaints Objective Vital Signs - Last 8 Hours Temp Pulse Resp BP Pulse Ox 05/03/18 07:37 97.6 F 110 18 139/75 98 05/03/18 05:07 99.4 F 109 20 138/77 96 05/03/18 03:05 99.6 F 120 20 151/83 96 Intake and Output 05/02/18 05/03/18 05/03/18 23:59 07:59 15:59 Intake Total 2350 / 2350 100 / 100 350 / 350 Output Total 1450 / 1450 725 / 725 Balance 900 / 900 -625 / -625 350 / 350 Intake: IV Fluids 2110 / 2110 100 / 100 Clinimix E 5%-15% SOLUTION 2009 000 ML @ 83.3 mls/hr IVC .Q24H REMBERTO with M.v.i. Adult 10 ml Rx# :[id number] Zosyn 3.375 GM In 0.9 % Sodium 100 / 100 100 / 100 Chloride (Mini-Bag +) 100 ML @ 25 mls/hr IVPB Q8H REMBERTO Rx#: [id number] Oral 240 / 240 350 / 350 Output: Stool 25 / 25 Catheter 1450 / 1450 700 / 700 Other: Meal Breakfast Percent of Meal Consumed 60% 0% Weight 80.5 kg Blood Glucose* 126 - General physical appearance no distress, other (restraints noted. Sitter at bedside) - ENT atraumatic, normocephalic - Neck Neck exam: trachea midline - Respiratory normal expansion, normal respiratory effort, clear to auscultation - Cardiovascular Cardiovascular exam: Present: tachycardia - Abdomen Abdomen: Present: bowel sounds present, soft, non tender - Incision Incision: Present: clean and dry, intact - Integumentary no abnormal pigmentation - Neurologic disoriented - Musculoskeletal normal posture - Psychiatric other - Labs 05/03/18 05:25 05/03/18 05:25 Diabetes panel 05/03/18 Range/Units 05:25 Sodium 136 (136-145) mEq/L Potassium 3.8 (3.5-5.1) mEq/L Chloride 106 (98-107) mEq/L Carbon Dioxide 22 L (23-29) mEq/L BUN 37 H (8-23) mg/dL Creatinine 1.51 H (0.60-1.20) mg/dL Glucose 112 H (70-105) mg/dL Calcium 7.8 L (8.6-10.3) mg/dL Calcium panel 05/03/18 Range/Units 05:25 Calcium 7.8 L (8.6-10.3) mg/dL Phosphorus 3.9 (2.7-4.5) mg/dL Pituitary panel 05/03/18 Range/Units 05:25 Sodium 136 (136-145) mEq/L Potassium 3.8 (3.5-5.1) mEq/L Chloride 106 (98-107) mEq/L Carbon Dioxide 22 L (23-29) mEq/L BUN 37 H (8-23) mg/dL Creatinine 1.51 H (0.60-1.20) mg/dL Glucose 112 H (70-105) mg/dL Calcium 7.8 L (8.6-10.3) mg/dL Adrenal panel 05/03/18 Range/Units 05:25 Sodium 136 (136-145) mEq/L Potassium 3.8 (3.5-5.1) mEq/L Chloride 106 (98-107) mEq/L Carbon Dioxide 22 L (23-29) mEq/L BUN 37 H (8-23) mg/dL Creatinine 1.51 H (0.60-1.20) mg/dL Glucose 112 H (70-105) mg/dL Calcium 7.8 L (8.6-10.3) mg/dL - VTE Documentation of Mechanical Device: Intermittent pneumatic compression device Consult Discharge Plan - Plan Additional Instructions: continue current medications for calm/agitation, and to keep pt comfortable and redirectable Referrals: Albertina Huerta MD [Primary Care Provider] - <Moira Herrera - Last Filed: 05/03/18 10:09> Date of Encounter: 05/03/18 - Assessment and Plan (1) Status post Sunny's procedure Current Visit: Yes Status: Acute (2) Dementia Current Visit: Yes Status: Chronic Qualifiers: Dementia type: unspecified type Dementia behavioral disturbance: with behavioral disturbance Qualified Code(s): F03.91 - Unspecified dementia with behavioral disturbance (3) Urinary retention Current Visit: Yes Status: Acute Objective Vital Signs - Last 8 Hours Temp Pulse Resp BP Pulse Ox 05/03/18 07:37 97.6 F 110 18 139/75 98 05/03/18 05:07 99.4 F 109 20 138/77 96 05/03/18 03:05 99.6 F 120 20 151/83 96 Intake and Output 05/02/18 05/03/18 05/03/18 23:59 07:59 15:59 Intake Total 2350 / 2350 100 / 100 350 / 350 Output Total 1450 / 1450 725 / 725 200 / 200 Balance 900 / 900 -625 / -625 150 / 150 Intake: IV Fluids 2110 / 2110 100 / 100 Clinimix E 5%-15% SOLUTION , 2009 000 ML @ 83.3 mls/hr IVC .Q24H REMBERTO with M.v.i. Adult 10 ml Rx# :[id number] Zosyn 3.375 GM In 0.9 % Sodium 100 / 100 100 / 100 Chloride (Mini-Bag +) 100 ML @ 25 mls/hr IVPB Q8H REMBERTO Rx#: [id number] Oral 240 / 240 350 / 350 Output: Urine 200 / 200 Stool 25 / 25 Catheter 1450 / 1450 700 / 700 Other: Meal Breakfast Percent of Meal Consumed 60% 0% Weight 80.5 kg Blood Glucose* 126 - Labs 05/03/18 05:25 05/03/18 05:25 Diabetes panel 05/03/18 Range/Units 05:25 Sodium 136 (136-145) mEq/L Potassium 3.8 (3.5-5.1) mEq/L Chloride 106 (98-107) mEq/L Carbon Dioxide 22 L (23-29) mEq/L BUN 37 H (8-23) mg/dL Creatinine 1.51 H (0.60-1.20) mg/dL Glucose 112 H (70-105) mg/dL Calcium 7.8 L (8.6-10.3) mg/dL Calcium panel 05/03/18 Range/Units 05:25 Calcium 7.8 L (8.6-10.3) mg/dL Phosphorus 3.9 (2.7-4.5) mg/dL Pituitary panel 05/03/18 Range/Units 05:25 Sodium 136 (136-145) mEq/L Potassium 3.8 (3.5-5.1) mEq/L Chloride 106 (98-107) mEq/L Carbon Dioxide 22 L (23-29) mEq/L BUN 37 H (8-23) mg/dL Creatinine 1.51 H (0.60-1.20) mg/dL Glucose 112 H (70-105) mg/dL Calcium 7.8 L (8.6-10.3) mg/dL Adrenal panel 05/03/18 Range/Units 05:25 Sodium 136 (136-145) mEq/L Potassium 3.8 (3.5-5.1) mEq/L Chloride 106 (98-107) mEq/L Carbon Dioxide 22 L (23-29) mEq/L BUN 37 H (8-23) mg/dL Creatinine 1.51 H (0.60-1.20) mg/dL Glucose 112 H (70-105) mg/dL Calcium 7.8 L (8.6-10.3) mg/dL - Attending Attestation I have personally performed a face to face evaluation on this patient. I have reviewed and agree with the care plan. History and Exam by me shows:
--- NOTE | 2018-05-03 12:19 | Infectious Disease Progress No ---
Date of Encounter: 05/03/18 Time of Encounter: 12:17 - Assessment and Plan (1) Sepsis Current Visit: Yes Status: Acute The patient had three SIRS criteria (tachycardia, leukocytosis, and fever). Etiology unclear: intra-abdominal (peritonitis) vs. pulmonary (pneumonia) vs. non-infectious. The patient did have some spillage of bowel contents into the abdomen intra-op, but CT negative for abscess or fluid collection. WBC trending down, but had low-grade fever overnight and tachycardia persists. Blood culture drawn 04/22/18 is negative x 1 set. Repeat blood culture drawn 04/24/18 is negative x 1 set. Repeat blood cultures drawn 04/25/18 are negative x 2 sets. Additional blood cultures drawn 04/27/18 are negative x 2 sets. The patient's mental status makes it very difficult to obtain ROS information from her. CT of the abdomen and pelvis showed findings consistent with ileus and some ascites, but no other acute intra-abdominal process. It did show adjacent consolidation at the lung bases. CT chest shows bilateral upper lobe nodular opacities, concerning for infectious process. Urinalysis negative. Culture grew out only yeast. The patient does have a PICC line, but clinically does not appear infected. Surgical incision looks great. Check procalcitonin. --> mildly elevated at 0.16. Check peripheral smear. --> reveals reactive leukocytosis Amylase and lipase elevated, but abdominal exam benign and CT negative for pancreatitis. The patient does not appear to have any URI symptoms. S. pneumo and Legionella UATs negative. Vancomycin stopped due to lack of MRSA on cultures and worsening GEORGI. Get CXR now. Repeat blood cultures x 2 sets now. Continue Zosyn 3.375 grams IV Q8H (day 9). Micafungin discontinued. Monitor renal function and for drug toxicity and dose-adjust antibiotics. Duration of treatment depends on the clinical picture. Qualifiers: Sepsis type: sepsis due to unspecified organism Qualified Code(s): A41.9 - Sepsis, unspecified organism (2) Leukocytosis Current Visit: Yes Status: Acute Etiology unclear. Neutrophilic predominance. Improved. Workup as above. Continue to trend. Qualifiers: Leukocytosis type: unspecified Qualified Code(s): D72.829 - Elevated white blood cell count, unspecified (3) Abnormal CT scan, chest Current Visit: Yes Status: Acute CT of the chest completed 04/27/18 shows moderate bilateral pleural effusions with bibasilar lung opacities likely representing atelectasis. It also shows upper lobe sub-solid nodular opacities that are suspected to be infectious. Recommend pulmonary to evaluate. Repeat CXR. Given the patient's AMS, worsening tachycardia, and low-grade fevers , concern that the patient may be aspirating. (4) Encephalopathy Current Visit: Yes Status: Acute Etiology unclear, but likely multifactorial: sepsis + anesthesia + pain medication +/- other. Appears improved. Continue to monitor closely. (5) Ileus following gastrointestinal surgery Current Visit: Yes Status: Resolved CT of the abdomen and pelvis completed 04/27/18 showed findings consistent with post-op ileus. Could be contributing to leukocytosis. Management per the surgery team. (6) Mass of colon Current Visit: Yes Status: Resolved CT of the abdomen and pelvis completed 04/18/18 showed a suspicious infiltrating mass of the colon with obstruction. Transferred to [facility]. Surgery consulted and following. 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 Operative note reviewed. Pathology negative for malignancy, but did show acute on chronic diverticulosis with abscess and giant cell formation. Post-op care per the general surgery team. (7) Bowel obstruction Current Visit: Yes Status: Chronic Secondary to colonic mass. Resolved. Qualifiers: Intestinal obstruction type: other intestinal obstruction Intestinal obstruction extent: complete Qualified Code(s): K56.691 - Other complete intestinal obstruction (8) Hypokalemia Current Visit: Yes Status: Resolved Replacement per the primary team. (9) HTN (hypertension) Current Visit: Yes Status: Chronic Qualifiers: Hypertension type: essential hypertension Qualified Code(s): I10 - Essential (primary) hypertension (10) HLD (hyperlipidemia) Current Visit: Yes Status: Chronic Qualifiers: Hyperlipidemia type: mixed hyperlipidemia Qualified Code(s): E78.2 - Mixed hyperlipidemia (11) Hypothyroidism Current Visit: Yes Status: Chronic Qualifiers: Hypothyroidism type: acquired Qualified Code(s): E03.9 - Hypothyroidism, unspecified (12) Dementia Current Visit: Yes Status: Chronic Qualifiers: Dementia type: unspecified type Dementia behavioral disturbance: with behavioral disturbance Qualified Code(s): F03.91 - Unspecified dementia with behavioral disturbance (13) GEORGI (acute kidney injury) Current Visit: Yes Status: Acute Etiology not clear. Likely multifactorial. Monitor kidney function closely Continue to trend. (14) Superficial venous thrombosis of right arm Current Visit: Yes Status: Acute Venous doppler study shows SVT in the right basilic and right cephalic veins. Supportive care. Anticoagulation per the primary team. - Subjective Interval history: Patient seen and examined with family at bedside. No acute events noted overnight. Patient remains confused and restless. Unable to provide ROS information this morning. Sitter remains at bedside with BUE wrist restraints noted. Family states the patient is not eating much. Infect Dis PN-Objective Data - Labs CBC & Chem 7: 05/03/18 05:25 05/03/18 05:25 Labs: Laboratory Results - last 24 hr 05/02/18 05/02/18 05/02/18 08:57 11:18 17:52 WBC RBC Hgb Hct MCV MCH MCHC RDW Plt Count MPV Immature Gran % Seg Neutrophils % Lymphocytes % Monocytes % Eosinophils % Basophils % Neutrophils # Lymphocytes # Monocytes # Eosinophils # Basophils # Sodium Potassium Chloride Carbon Dioxide BUN Creatinine Est GFR ( Amer) Est GFR (Non-Af Amer) BUN/Creatinine Ratio Glucose POC Glucose 116 H 114 H 110 H Calculated Osmolality Calcium Phosphorus Magnesium 05/02/18 05/03/18 05/03/18 23:34 05:25 05:25 WBC 11.9 H RBC 3.39 L Hgb 9.6 L Hct 28.8 L MCV 85.0 MCH 28.3 MCHC 33.3 RDW 15.6 H Plt Count 385 MPV 9.8 Immature Gran % 1.3 Seg Neutrophils % 70.7 Lymphocytes % 13.9 Monocytes % 11.3 Eosinophils % 2.4 Basophils % 0.4 Neutrophils # 8.4 Lymphocytes # 1.7 Monocytes # 1.4 H Eosinophils # 0.3 Basophils # 0.1 Sodium 136 Potassium 3.8 Chloride 106 Carbon Dioxide 22 L BUN 37 H Creatinine 1.51 H Est GFR ( Amer) 40 L Est GFR (Non-Af Amer) 33 L BUN/Creatinine Ratio 25 Glucose 112 H POC Glucose 126 H Calculated Osmolality 291 Calcium 7.8 L Phosphorus 3.9 Magnesium 1.8 05/03/18 11:06 WBC RBC Hgb Hct MCV MCH MCHC RDW Plt Count MPV Immature Gran % Seg Neutrophils % Lymphocytes % Monocytes % Eosinophils % Basophils % Neutrophils # Lymphocytes # Monocytes # Eosinophils # Basophils # Sodium Potassium Chloride Carbon Dioxide BUN Creatinine Est GFR ( Amer) Est GFR (Non-Af Amer) BUN/Creatinine Ratio Glucose POC Glucose 116 H Calculated Osmolality Calcium Phosphorus Magnesium Cultures: Cultures 04/27/18 16:10 Blood Culture - Final Peripheral Venipuncture No growth. Final report. 04/27/18 16:10 Blood Culture - Final Peripheral Venipuncture No growth. Final report. 04/27/18 10:25 Urine Culture - Final Urine,Catheterized Beatris albicans 04/25/18 07:55 Blood Culture - Final Peripheral Venipuncture No growth. Final report. 04/25/18 07:57 Blood Culture - Final Peripheral Venipuncture No growth. Final report. 04/24/18 05:27 Blood Culture - Final Peripheral Venipuncture No growth. Final report. 04/27/18 10:29 Legionella Antigen - Final Urine,[place] Streptococcus pneumoniae Antigen (M - Final 04/22/18 08:24 Blood Culture - Final Peripheral Venipuncture No growth. Final report. Serology 04/28/18 04/27/18 04/25/18 Range/Units 14:15 10:35 08:10 Urine Color Dark Yellow Yellow (Yellow) Urine Clarity Cloudy A Clear (Clear) Urine pH 6.0 6.0 (5.0-8.0) pH Units Ur Specific [place] > 1.030 H 1.019 (1.010-1.025) Urine Protein 100 H Negative (Neg-Trace) mg/dL Urine Glucose (UA) Normal Normal (Normal) mg/dL Urine Ketones Negative Trace H (Negative) mg/dL Urine Blood Small H Negative (Negative) Urine Nitrite Negative Negative (Negative) Urine Bilirubin Negative Negative (Negative) Urine Urobilinogen Normal Normal (Normal) mg/dL Ur Leukocyte Esterase Small H Negative (Negative) Urine Microscopic RBC 3-5 H (0-3) per hpf Urine Microscopic WBC 50-100 H (0-3) per hpf Ur Squamous Epith Cells Many H (None-Few) per lpf Urine Bacteria Many H (None-Few) per hpf Hyaline Casts None Seen (None-Few) per lpf Urine Yeast Many H (None Seen) per hpf Ur Culture Indicated? (NO) Chlamy pneumoniae PCR Not Detected (Not Detect) Adenovirus (PCR) Not Detected (Not Detect) B. pertussis DNA (PCR) Not Detected (Not Detect) B.parapertussis DNA PCR Not Detected (Not Detect) Coronavirus OC43 (PCR) Not Detected (Not Detect) Coronavirus HKU1 (PCR) Not Detected (Not Detect) Coronavirus 229E (PCR) Not Detected (Not Detect) Coronavirus NL63 (PCR) Not Detected (Not Detect) Human Metapneumovir PCR Not Detected (Not Detect) Influenza A (H1) PCR Not Detected (Not Detect) Influ A (H1N1/09) PCR Not Detected (Not Detect) Influenza A (H3) PCR Not Detected (Not Detect) Influenza A Untype (PCR) Not Detected (Not Detect) Influenza Type B (PCR) Not Detected (Not Detect) M.pneumoniae DNA (PCR) Not Detected (Not Detect) Parainfluenza 1 (PCR) Not Detected (Not Detect) Parainfluenza 2 (PCR) Not Detected (Not Detect) Parainfluenza 3 (PCR) Not Detected (Not Detect) Parainfluenza 4 (PCR) Not Detected (Not Detect) RSV (PCR) Not Detected (Not Detect) Entero/Rhino (PCR) Not Detected (Not Detect) 04/22/18 Range/Units 09:16 Urine Color Dark Yellow (Yellow) Urine Clarity Clear (Clear) Urine pH 5.5 (5.0-8.0) pH Units Ur Specific [place] > 1.030 H (1.010-1.025) Urine Protein Trace (Neg-Trace) mg/dL Urine Glucose (UA) Normal (Normal) mg/dL Urine Ketones 15 H (Negative) mg/dL Urine Blood Negative (Negative) Urine Nitrite Positive A (Negative) Urine Bilirubin Negative (Negative) Urine Urobilinogen Normal (Normal) mg/dL Ur Leukocyte Esterase Trace H (Negative) Urine Microscopic RBC 5-15 H (0-3) per hpf Urine Microscopic WBC 0-3 (0-3) per hpf Ur Squamous Epith Cells Many H (None-Few) per lpf Urine Bacteria None Seen (None-Few) per hpf Hyaline Casts None Seen (None-Few) per lpf Urine Yeast (None Seen) per hpf Ur Culture Indicated? NO. A (NO) Chlamy pneumoniae PCR (Not Detect) Adenovirus (PCR) (Not Detect) B. pertussis DNA (PCR) (Not Detect) B.parapertussis DNA PCR (Not Detect) Coronavirus OC43 (PCR) (Not Detect) Coronavirus HKU1 (PCR) (Not Detect) Coronavirus 229E (PCR) (Not Detect) Coronavirus NL63 (PCR) (Not Detect) Human Metapneumovir PCR (Not Detect) Influenza A (H1) PCR (Not Detect) Influ A (H1N1/09) PCR (Not Detect) Influenza A (H3) PCR (Not Detect) Influenza A Untype (PCR) (Not Detect) Influenza Type B (PCR) (Not Detect) M.pneumoniae DNA (PCR) (Not Detect) Parainfluenza 1 (PCR) (Not Detect) Parainfluenza 2 (PCR) (Not Detect) Parainfluenza 3 (PCR) (Not Detect) Parainfluenza 4 (PCR) (Not Detect) RSV (PCR) (Not Detect) Entero/Rhino (PCR) (Not Detect) Exam - Constitutional Vitals: Temp Pulse Resp BP Pulse Ox 98.9 F 113 18 125/89 92 05/03/18 10:56 05/03/18 10:56 05/03/18 10:56 05/03/18 10:56 05/03/18 10:56 General appearance: average body habitus, no acute distress, no febrile - Head Head exam: Present: atraumatic, normal inspection, normocephalic - Eye Additional comments: Patient non-compliant with exam. - ENT ENT exam: Present: mucous membranes dry - Neck Neck exam: Present: normal inspection - Respiratory Respiratory exam: Present: CTAB. Absent: rales, respiratory distress, rhonchi, wheezes - Cardiovascular Cardiovascular exam: Present: tachycardia. Absent: irregular rhythm - GI/Abdominal GI/Abdominal exam: Present: normal bowel sounds, soft, tenderness (generalized) . Absent: distended Additional comments: Midline abdominal incision [employer] with waleska intact and wound edges well- approximated. Colostomy noted to the left abdomen with liquid green stool noted in the collection bag. [place] catheter noted to be draining clear yellow urine. - Extremities Exam Extremities exam: Present: normal inspection, pedal edema (1+ BLE). Absent: joint swelling, tenderness Additional comments: PICC line noted to the RUE with transparent dressing C/D/I. - Neurological Exam Neurological exam: Present: altered, no focal deficits (MAHMOOD x 4 spontaneously.) - Psychiatric Psychiatric exam: Present: agitated (restless) - Skin Skin exam: Present: dry, intact, normal color, warm - VTE Documentation of Mechanical Device: Intermittent pneumatic compression device Consult Discharge Plan - Plan Additional Instructions: continue current medications for calm/agitation, and to keep pt comfortable and redirectable Referrals: Albertina Huerta MD [Primary Care Provider] - - Attending Attestation I examined this patient and my medical decision-making was reviewed with the Resident Physician. I agree with the documented findings, disposition and treatment plan as described except to the extent set forth below.
--- NOTE | 2018-05-03 15:14 | Internal Med Progress Note ---
<Bib,Kimberley - Last Filed: 05/03/18 16:02> Date of Encounter: 05/03/18 Time of Encounter: 03:10 - Assessment and plan (1) Bowel obstruction Current Visit: Yes Status: Chronic Assessment and plan: From sigmoid colon mass s/p resection. Continue pain management. Qualifiers: Intestinal obstruction type: other intestinal obstruction Intestinal obstruction extent: complete Qualified Code(s): K56.691 - Other complete intestinal obstruction (2) Hypokalemia Current Visit: Yes Status: Resolved Assessment and plan: Resolved, but will continue to monitor (3) HTN (hypertension) Current Visit: Yes Status: Chronic Assessment and plan: Resolved. Plan: continue amlodopine, hydralazine, tamsulosin Qualifiers: Hypertension type: essential hypertension Qualified Code(s): I10 - Essential (primary) hypertension (4) HLD (hyperlipidemia) Current Visit: Yes Status: Chronic Assessment and plan: Refused Zocor at admission. Plan: will consider addressing this after her altered mental status resolves Qualifiers: Hyperlipidemia type: mixed hyperlipidemia Qualified Code(s): E78.2 - Mixed hyperlipidemia (5) Hypothyroidism Current Visit: Yes Status: Chronic Assessment and plan: Continue levothyroxine. Qualifiers: Hypothyroidism type: acquired Qualified Code(s): E03.9 - Hypothyroidism, unspecified (6) DVT prophylaxis Current Visit: Yes Status: Acute Assessment and plan: Continue Heparin SubQ (7) Dementia Current Visit: Yes Status: Chronic Assessment and plan: Continue trazadone and donepezil. -Decrease night time disturbance Qualifiers: Dementia type: unspecified type Dementia behavioral disturbance: with behavioral disturbance Qualified Code(s): F03.91 - Unspecified dementia with behavioral disturbance (8) Protein-calorie malnutrition, moderate Current Visit: Yes Status: Acute Assessment and plan: Soft diet with chopped meat suggested by dietary. (9) Leukocytosis Current Visit: Yes Status: Acute Assessment and plan: Continue zosyn day 2. Qualifiers: Leukocytosis type: unspecified Qualified Code(s): D72.829 - Elevated white blood cell count, unspecified (10) Ileus following gastrointestinal surgery Current Visit: Yes Status: Resolved Assessment and plan: Resolved. No further N/V and having good output per colostomy. -If she continues to not eat, will consider other dietary options. (11) Hypocalcemia Current Visit: Yes Status: Acute Assessment and plan: Likely secondary to malnutrition -Progress diet (12) Acute renal failure due to tubular necrosis Current Visit: Yes Status: Suspected Assessment and plan: Creatinine 1.51 today, continues to be high for the past 5 days. Ultrasound neg for obstruction and urine output good. Avoid nephrotoxins. (13) Altered mental status Current Visit: Yes Status: Acute Assessment and plan: Unknown cause. Infection vs endocrine disease, uremia, vs tumor -She did have history of the abdominal mass s/p ressection but the ongoing confusion could be due to mass at other regions -decrease use of haldol -decrease night time disturbance Qualifiers: Altered mental status type: disorientation Qualified Code(s): R41.0 - Disorientation, unspecified - Time Spent With Patient Total time spent is greater than 50% in coordination of care (as documented) at patient's floor/unit and/or counseling patient: - Subjective Interval history: Ms. Stinson is a 78 year old female who was seen at bedside today. She is 15 days status post rectosigmoidecty and colostomy. This morning she is awake, but confused and not oriented to person, place or time. She is unable to provide any significant history and no family is present to determine her baseline. - Constitutional Vitals: Temp Pulse Resp BP Pulse Ox 98.9 F 113 18 125/89 92 05/03/18 10:56 05/03/18 10:56 05/03/18 10:56 05/03/18 10:56 05/03/18 10:56 General appearance: Present: A&O X 1. Absent: answers questions appropriately Exam: Confused and not responding to questions appropriately - Head Head exam: Present: atraumatic, normocephalic - Eye Eye exam: Present: EOMI, sclera anicteric - ENT ENT exam: Present: mucous membranes dry - Neck Neck exam general surgery: Present: supple, trachea midline - Respiratory Respiratory exam: Present: CTAB. Absent: chest wall tenderness, respiratory distress - Cardiovascular Cardiovascular exam: Present: +S1, +S2 - GI/Abdominal GI/Abdominal exam: Present: soft Additional comments: surgical band around the abdomen with a colostomy bag showing fecal matter. - Extremities Exam Extremities exam: Present: warm, radial pulses palpable and symmetrical Additional comments: mild tenderness in lower extremities bilaterally - Psychiatric Additional comments: confused, thought content not intact, not responding appropriately to questions - Skin Skin exam: Present: dry, normal color, warm Internal Medicine: Result - Labs CBC & Chem 7: 05/03/18 05:25 05/03/18 05:25 Labs: Short CBC 05/03/18 Range/Units 05:25 WBC 11.9 H (4.3-11.1) K/mcL Hgb 9.6 L (11.5-15.4) g/dL Hct 28.8 L (35.3-44.9) % Plt Count 385 (140-400) K/mcL Neutrophils # 8.4 (1.6-8.9) K/mcL BMP 05/03/18 05:25 Sodium 136 Potassium 3.8 Chloride 106 Carbon Dioxide 22 L BUN 37 H Creatinine 1.51 H Glucose 112 H Calcium 7.8 L - ABG Interpretation ABG results: PT/INR, D-dimer PT 14.2 Seconds (9.4-12.1) H 04/19/18 04:19 - Impressions Impressions Chest X-Ray 05/03/18 12:33 IMPRESSION: Small bilateral pleural effusions with some minimal left basilar atelectasis. D/ / 05/03/2018 13:59:43 Tahir Conrad MD / Adelina Blank Interpreting Provider: Tahir Conrad MD - Diagnostic Studies CT scan - abdomen Additional comments: CT abdomen: on 04/18/18 showed infiltrating mass of sigmoid colon with mild dilation of the colon proximal to the mass. Sigmoid diverticulosis with no evidence of diverticulitis. Fluid adjacent to the fundus of the gallbladder does not appear to originate from the gallbladder and is most likely related to the colonic process. Read by Dr. Caleb Pereira Chest x-ray Additional comments: C-xray: minimal bibasilar atelectasis with small pleural effusions. - VTE Documentation of Mechanical Device: Intermittent pneumatic compression device Consult Discharge Plan - Plan Additional Instructions: continue current medications for calm/agitation, and to keep pt comfortable and redirectable Referrals: Albertina Huerta MD [Primary Care Provider] - <Sania Johnson - Last Filed: 05/03/18 22:58> Date of Encounter: 05/03/18 - Assessment and plan (1) Bowel obstruction Current Visit: Yes Status: Chronic Qualifiers: Intestinal obstruction type: other intestinal obstruction Intestinal obstruction extent: complete Qualified Code(s): K56.691 - Other complete intestinal obstruction (2) Hypokalemia Current Visit: Yes Status: Resolved (3) HTN (hypertension) Current Visit: Yes Status: Chronic Qualifiers: Hypertension type: essential hypertension Qualified Code(s): I10 - Essential (primary) hypertension (4) HLD (hyperlipidemia) Current Visit: Yes Status: Chronic Qualifiers: Hyperlipidemia type: mixed hyperlipidemia Qualified Code(s): E78.2 - Mixed hyperlipidemia (5) Hypothyroidism Current Visit: Yes Status: Chronic Qualifiers: Hypothyroidism type: acquired Qualified Code(s): E03.9 - Hypothyroidism, unspecified (6) DVT prophylaxis Current Visit: Yes Status: Acute (7) Dementia Current Visit: Yes Status: Chronic Qualifiers: Dementia type: unspecified type Dementia behavioral disturbance: with behavioral disturbance Qualified Code(s): F03.91 - Unspecified dementia with behavioral disturbance (8) Protein-calorie malnutrition, moderate Current Visit: Yes Status: Acute (9) Leukocytosis Current Visit: Yes Status: Acute Qualifiers: Leukocytosis type: unspecified Qualified Code(s): D72.829 - Elevated white blood cell count, unspecified (10) Ileus following gastrointestinal surgery Current Visit: Yes Status: Resolved (11) Hypocalcemia Current Visit: Yes Status: Acute (12) Acute renal failure due to tubular necrosis Current Visit: Yes Status: Suspected (13) Altered mental status Current Visit: Yes Status: Acute Qualifiers: Altered mental status type: disorientation Qualified Code(s): R41.0 - Disorientation, unspecified - Time Spent With Patient Total time spent is greater than 50% in coordination of care (as documented) at patient's floor/unit and/or counseling patient: - Constitutional Vitals: Temp Pulse Resp BP Pulse Ox 98.2 F 115 18 110/69 96 05/03/18 18:00 05/03/18 18:00 05/03/18 18:00 05/03/18 18:00 05/03/18 18:00 Internal Medicine: Result - Labs CBC & Chem 7: 05/03/18 05:25 05/03/18 05:25 Labs: Short CBC 05/03/18 Range/Units 05:25 WBC 11.9 H (4.3-11.1) K/mcL Hgb 9.6 L (11.5-15.4) g/dL Hct 28.8 L (35.3-44.9) % Plt Count 385 (140-400) K/mcL Neutrophils # 8.4 (1.6-8.9) K/mcL BMP 05/03/18 05:25 Sodium 136 Potassium 3.8 Chloride 106 Carbon Dioxide 22 L BUN 37 H Creatinine 1.51 H Glucose 112 H Calcium 7.8 L - ABG Interpretation ABG results: PT/INR, D-dimer PT 14.2 Seconds (9.4-12.1) H 04/19/18 04:19 - Impressions Impressions Chest X-Ray 05/03/18 12:33 IMPRESSION: Small bilateral pleural effusions with some minimal left basilar atelectasis. D/ / 05/03/2018 13:59:43 Tahir Conrad MD / Adelina Blank Interpreting Provider: Tahir Conrad MD - Attending Attestation I examined this patient and my medical decision-making was reviewed with the Resident Physician. I agree with the documented findings, disposition and treatment plan as described except to the extent set forth below. Patient appears confused today, but in no acute distress. Verbal responses are incoherent and sitter at bedside states this is her baseline since monitoring her. TPN discontinued today, will try patient on PO. D/C telemetry and D/C rios to reduce agitation Continue re orientation, haldol as prn only for severe agitation Restraints off today once again Encourage PO intake. Family okay to bring in food that encourages her appetite.
[2018-05-03] MEDS: traZODone 50 MG TABLET PO SCH (20:03)
[2018-05-04] MEDS: Insulin LISPRO 300 UNITS/3 ML VIAL SQ SCH ×4 (01:29→20:43)
[2018-05-04] MEDS: Piperacillin/Tazobactam 3.375 GM in 0.9 % Sodium Chloride Mini Bag 100 ML IVPB SCH ×3 (02:13→23:59)
[2018-05-04 03:46] LABS: Basophils # 0.1 K/mcL (0.0-0.2); Basophils % 0.5 %; Eosinophils # 0.1 K/mcL (0.0-0.6); Eosinophils % 1.1 %; Hematocrit 29.3 % (35.3-44.9); Hemoglobin 9.8 g/dL (11.5-15.4); Immature Granulocytes % 1.1 % (0-4); Lymphocytes # 1.4 K/mcL (0.6-4.6); Lymphocytes % 10.4 %; Mean Corpuscular HGB Conc 33.4 g/dL (31.6-35.5); Mean Corpuscular Hemoglobin 28.5 pg (28.0-33.3); Mean Corpuscular Volume 85.2 fL (83.0-100.0); Mean Platelet Volume 9.9 fL (9.4-12.4); Monocytes # 1.7 K/mcL (0.0-1.3); Neutrophils # 9.6 K/mcL (1.6-8.9); Platelet Count 417 K/mcL (140-400); Red Blood Count 3.44 M/mcL (3.82-4.97); Red Cell Distribution Width 15.9 % (11.5-14.5); Segmented Neutrophils % 73.9 %
[2018-05-04 04:07] LABS: Calcium 8.5 mg/dL (8.6-10.3); Potassium 4.2 mEq/L (3.5-5.1)
[2018-05-04] MEDS: *HR* Heparin 5,000 UNIT/ML VIAL SQ SCH ×2 (05:44→17:04)
[2018-05-04] MEDS ORDERED: 0.9 % Sodium Chloride 500 ML IVC ONE (08:10)
--- NOTE | 2018-05-04 09:21 | Internal Med Progress Note ---
<Hang Mccartneya - Last Filed: 05/04/18 13:57> Date of Encounter: 05/04/18 Time of Encounter: 09:20 - Assessment and plan (1) Bowel obstruction Current Visit: Yes Status: Chronic Assessment and plan: Resolved. -Due to mass of sigmoid colon - s/p resection and colostomy -Continue pain management. Qualifiers: Intestinal obstruction type: other intestinal obstruction Intestinal obstruction extent: complete Qualified Code(s): K56.691 - Other complete intestinal obstruction (2) Leukocytosis Current Visit: Yes Status: Acute Assessment and plan: Continue zosyn day 3. Qualifiers: Leukocytosis type: unspecified Qualified Code(s): D72.829 - Elevated white blood cell count, unspecified (3) Acute renal failure due to tubular necrosis Current Visit: Yes Status: Suspected Assessment and plan: Creatinine 1.65 today -continues to be high for the past 6 days, possibly pre-renal due to dehydration -Ultrasound neg for obstruction -continue bladder scan -Avoid nephrotoxins. (4) Protein-calorie malnutrition, moderate Current Visit: Yes Status: Acute Assessment and plan: Continues to not eat -Dietary suggested: soft diet with chopped meat suggested by dietary. -continue megestrol -considering other feeding options (5) Ileus following gastrointestinal surgery Current Visit: Yes Status: Resolved Assessment and plan: Resolved. -No further N/V and having good output per colostomy. -If she continues to not eat, will consider other dietary options. (6) Hypokalemia Current Visit: Yes Status: Resolved Assessment and plan: Resolved, but will continue to monitor (7) HTN (hypertension) Current Visit: Yes Status: Chronic Assessment and plan: Resolved. -continue amlodopine, hydralazine, tamsulosin Qualifiers: Hypertension type: essential hypertension Qualified Code(s): I10 - Essential (primary) hypertension (8) HLD (hyperlipidemia) Current Visit: Yes Status: Chronic Assessment and plan: Refused Zocor at admission. -will consider addressing this after her altered mental status resolves Qualifiers: Hyperlipidemia type: mixed hyperlipidemia Qualified Code(s): E78.2 - Mixed hyperlipidemia (9) Hypothyroidism Current Visit: Yes Status: Chronic Assessment and plan: Continue levothyroxine. Qualifiers: Hypothyroidism type: acquired Qualified Code(s): E03.9 - Hypothyroidism, unspecified (10) Dementia Current Visit: Yes Status: Chronic Assessment and plan: Continue trazadone and donepezil. -Decrease night time disturbance Qualifiers: Dementia type: unspecified type Dementia behavioral disturbance: with behavioral disturbance Qualified Code(s): F03.91 - Unspecified dementia with behavioral disturbance (11) Hypocalcemia Current Visit: Yes Status: Acute Assessment and plan: Improving since yesterday. -Likely secondary to malnutrition -Progress diet (12) DVT prophylaxis Current Visit: Yes Status: Acute Assessment and plan: Continue Heparin SubQ (13) Altered mental status Current Visit: Yes Status: Acute Assessment and plan: Unknown cause. Infection vs endocrine disease, uremia, vs tumor -She did have history of the abdominal mass s/p ressection but the ongoing confusion could be due to mass at other regions -decrease use of haldol -decrease night time disturbance Qualifiers: Altered mental status type: disorientation Qualified Code(s): R41.0 - Disorientation, unspecified - Time Spent With Patient Total time spent is greater than 50% in coordination of care (as documented) at patient's floor/unit and/or counseling patient: - Subjective Interval history: Ms. Stinson is a 78 year old female who was seen at bedside today. She is 16 days status post rectosigmoidecty and colostomy. This morning she is sleeping but is aroused via sternal rub. She is still confused but responds to her name, not place or time. She is unable to provide any significant history and no family is present to determine her baseline. She does seem uncomfortable in bed as she is constantly adjusting her body. - Constitutional Vitals: Temp Pulse Resp BP Pulse Ox 99.5 F 116 20 146/69 95 05/04/18 08:12 05/04/18 08:12 05/04/18 08:12 05/04/18 01:37 05/04/18 08:12 General appearance: Present: A&O X 1. Absent: answers questions appropriately - Head Head exam: Present: atraumatic, normocephalic - Eye Eye exam: Present: EOMI, sclera anicteric - ENT ENT exam: Present: mucous membranes dry - Respiratory Respiratory exam: Present: decreased breath sounds (decreased breath sounds bibasilar). Absent: chest wall tenderness, wheezes - Cardiovascular Cardiovascular exam: Present: +S1, +S2. Absent: JVD - GI/Abdominal GI/Abdominal exam: Present: soft (healing surgical incision on the anterior abdomen). Absent: pulsatile mass, no peritoneal signs - Extremities Exam Extremities exam: Present: calf tenderness, tenderness (bilateral superfiial skin tenderness of lower legs), warm, radial pulses palpable and symmetrical. Absent: cyanotic - Incison Incision: Present: clean and dry, intact - Neurological Exam Neurological exam: Present: alert. Absent: oriented X3 - Skin Skin exam: Present: dry. Absent: cyanosis, erythema, rash Internal Medicine: Result - Labs CBC & Chem 7: 05/04/18 03:30 05/04/18 03:30 Labs: Short CBC 05/04/18 Range/Units 03:30 WBC 13.0 H (4.3-11.1) K/mcL Hgb 9.8 L (11.5-15.4) g/dL Hct 29.3 L (35.3-44.9) % Plt Count 417 H (140-400) K/mcL Neutrophils # 9.6 H (1.6-8.9) K/mcL BMP 05/04/18 03:30 Sodium 137 Potassium 4.2 Chloride 107 Carbon Dioxide 22 L BUN 34 H Creatinine 1.65 H Glucose 108 H Calcium 8.5 L - ABG Interpretation ABG results: PT/INR, D-dimer PT 14.2 Seconds (9.4-12.1) H 04/19/18 04:19 - Impressions Impressions Chest X-Ray 05/03/18 12:33 IMPRESSION: Small bilateral pleural effusions with some minimal left basilar atelectasis. D/ / 05/03/2018 13:59:43 Tahir Conrad MD / Adelina Blank Interpreting Provider: Tahir Conrad MD - Diagnostic Studies Chest x-ray Additional comments: Reviewed and shows bibasilar pleural effusion vs decreased full deep breath. - VTE Documentation of Mechanical Device: Intermittent pneumatic compression device Consult Discharge Plan - Plan Additional Instructions: continue current medications for calm/agitation, and to keep pt comfortable and redirectable Referrals: Albertina Huerta MD [Primary Care Provider] - <Sania Johnson - Last Filed: 05/04/18 18:48> Date of Encounter: 05/04/18 - Assessment and plan (1) Bowel obstruction Current Visit: Yes Status: Chronic Qualifiers: Intestinal obstruction type: other intestinal obstruction Intestinal obstruction extent: complete Qualified Code(s): K56.691 - Other complete intestinal obstruction (2) Hypokalemia Current Visit: Yes Status: Resolved (3) HTN (hypertension) Current Visit: Yes Status: Chronic Qualifiers: Hypertension type: essential hypertension Qualified Code(s): I10 - Essential (primary) hypertension (4) HLD (hyperlipidemia) Current Visit: Yes Status: Chronic Qualifiers: Hyperlipidemia type: mixed hyperlipidemia Qualified Code(s): E78.2 - Mixed hyperlipidemia (5) Hypothyroidism Current Visit: Yes Status: Chronic Qualifiers: Hypothyroidism type: acquired Qualified Code(s): E03.9 - Hypothyroidism, unspecified (6) DVT prophylaxis Current Visit: Yes Status: Acute (7) Dementia Current Visit: Yes Status: Chronic Qualifiers: Dementia type: unspecified type Dementia behavioral disturbance: with behavioral disturbance Qualified Code(s): F03.91 - Unspecified dementia with behavioral disturbance (8) Protein-calorie malnutrition, moderate Current Visit: Yes Status: Acute (9) Leukocytosis Current Visit: Yes Status: Acute Qualifiers: Leukocytosis type: unspecified Qualified Code(s): D72.829 - Elevated white blood cell count, unspecified (10) Ileus following gastrointestinal surgery Current Visit: Yes Status: Resolved (11) Hypocalcemia Current Visit: Yes Status: Acute (12) Acute renal failure due to tubular necrosis Current Visit: Yes Status: Suspected (13) Altered mental status Current Visit: Yes Status: Acute Qualifiers: Altered mental status type: disorientation Qualified Code(s): R41.0 - Disorientation, unspecified - Time Spent With Patient Total time spent is greater than 50% in coordination of care (as documented) at patient's floor/unit and/or counseling patient: - Constitutional Vitals: Temp Pulse Resp BP Pulse Ox 99.5 F 116 20 146/69 95 05/04/18 08:12 05/04/18 08:12 05/04/18 08:12 05/04/18 01:37 05/04/18 09:00 Internal Medicine: Result - Labs CBC & Chem 7: 05/04/18 03:30 05/04/18 03:30 Labs: Short CBC 05/04/18 Range/Units 03:30 WBC 13.0 H (4.3-11.1) K/mcL Hgb 9.8 L (11.5-15.4) g/dL Hct 29.3 L (35.3-44.9) % Plt Count 417 H (140-400) K/mcL Neutrophils # 9.6 H (1.6-8.9) K/mcL BMP 05/04/18 03:30 Sodium 137 Potassium 4.2 Chloride 107 Carbon Dioxide 22 L BUN 34 H Creatinine 1.65 H Glucose 108 H Calcium 8.5 L - ABG Interpretation ABG results: PT/INR, D-dimer PT 14.2 Seconds (9.4-12.1) H 04/19/18 04:19 - Attending Attestation I examined this patient and my medical decision-making was reviewed with the Resident Physician. I agree with the documented findings, disposition and treatment plan as described except to the extent set forth below. Today patient is less agitated but does appear in generalized discomfort. Two daughters are at bedside, one is POA. She was only able to eat a few table spoons of pudding today, enoughto take medications. They state overall she has not looked like this in the past. She closes her eyes but is easily arousable with verbal and tactile stimuli. Abdominal exam unchanged since yesterday. Neurological exam shows no focal defecits. Ileus following GI surgery Leukocytosis Poor appetite Acute renal failure Acute delirium Dementia Hypertension Depression Moderate protein calorie malnutrition Bowel obstruction s/p surgery and colostomy - Give additional IV fluids today - TPN discontinued by Surgery - Patient is poor candidate for PEG tube - Megace does not appear to improve appetite, will discontinue - Start Marinol - Encourage PO intake with pleasurable foods. - Recheck BMP in AM - Continue antibiotics per ID recommendations. I had discussion with POKhadar and other daughter as well at bedside. They are concerned because she is not eating and do not like to see her starve. They inquire about getting her nutrition, in particular continuing TPN. This was not restarted as her PO intake seems related to progressing dementia. We discussed risks of TPN and that this would not provide sufficient nutrients as well. They inquired about a PEG tube. The risks of PEG tube outweight the benefits in her case given dementia and her tendency to rip out lines and requiring restraints at several times during this admission. Later in the day no family/friends were at bedside. A family member of the patient called the [employer] and requested that the patient was transferred to [place]. I attempted to call the POA back 3 times but there was no answer. I called next listed phone number the other daughter and there was no answer. I left a phone message twice for POA. If POA is requesting to transfer patient, we may consider doing so. When able to reach [facility], we will need to discuss there must be an accepting physician for a transfer.
[2018-05-04] MEDS ORDERED: *HR* HYDROcodone/Acet 7.5/325 mg TABLET PO ONE (10:58)
[2018-05-04] MEDS: Famotidine 20 MG TABLET PO SCH (11:02)
[2018-05-04] MEDS: amLODIPine 5 MG TABLET PO SCH (11:02)
[2018-05-04] MEDS: Megestrol Acetate 400 MG/10 ML UDC PO SCH (11:03)
[2018-05-04] MEDS ORDERED: 0.9 % Sodium Chloride 1,000 ML IVC SCH (11:15)
--- NOTE | 2018-05-04 12:52 | General Surgery Progress Note ---
Date of Encounter: 05/04/18 Time of Encounter: 12:45 - Assessment and Plan (1) Sepsis Current Visit: Yes Status: Acute Plan: continue supportive care and discomfort management prolonged postoperative ileus is resolved. Continue diet as tolerated. Megace per primary team TPN stopped 05/03/18 daily wound care per bedside RN: remove dressing. Wash midline incision with antibacterial soap. May cover with a dry dressing or leave open to air. May remove waleska and place Steri-Strips. Ostomy care per bedside RN Continue abdominal binder loosely to protect colostomy given confusion. Continue PT/OT, GI, and DVT prophylaxis D/c planning per primary care as above. Per CM, she will need to be consider and restraint free prior to ECF admission, but is unclear if LTAC (which would be more appropriate) would accept. Referral to [facility] [place] noted. Qualifiers: Sepsis type: sepsis due to unspecified organism Qualified Code(s): A41.9 - Sepsis, unspecified organism Subjective Patient reports: other (Patient out of bed to chair and pleasantly confused, restraints off with daughter at bedside. Patient did not eat breakfast this morning.) Objective Vital Signs - Last 8 Hours Temp Pulse Resp Pulse Ox 05/04/18 08:12 99.5 F 116 20 95 Intake and Output 05/03/18 05/04/18 05/04/18 23:59 07:59 15:59 Intake Total 100 / 100 0 / 0 Output Total 150 / 150 250 / 250 Balance -50 / -50 -250 / -250 Intake: IV Fluids 100 / 100 Zosyn 3.375 GM In 0.9 % Sodium 100 / 100 Chloride (Mini-Bag +) 100 ML @ 25 mls/hr IVPB Q8H [facility] Rx#: [id number] Oral 0 / 0 Output: Urine 250 / 250 Stool 150 / 150 Other: Meal Breakfast Percent of Meal Consumed 0% Stool Consistency soft Stool Color Brown Green Blood Glucose* 98 94 115 - General physical appearance well developed, no distress, chronically ill, other (out of bed to chair and pleasantly confused) - Eyes normal ocular movement - ENT dry mucosa, atraumatic, normocephalic - Neck Neck exam: trachea midline - Respiratory normal respiratory effort, clear to auscultation, other (diminished bibasilar bases) - Cardiovascular Cardiovascular exam: Present: tachycardia - Abdomen Abdomen: Present: bowel sounds present, soft, non tender, wound (ileostomy pink and moist with liquid stool noted) - Neurologic CN 2-12 grossly intact - Psychiatric other (patient confused) - Labs 05/04/18 03:30 05/04/18 03:30 Diabetes panel 05/04/18 Range/Units 03:30 Sodium 137 (136-145) mEq/L Potassium 4.2 (3.5-5.1) mEq/L Chloride 107 (98-107) mEq/L Carbon Dioxide 22 L (23-29) mEq/L BUN 34 H (8-23) mg/dL Creatinine 1.65 H (0.60-1.20) mg/dL Glucose 108 H (70-105) mg/dL Calcium 8.5 L (8.6-10.3) mg/dL Calcium panel 05/04/18 Range/Units 03:30 Calcium 8.5 L (8.6-10.3) mg/dL Pituitary panel 05/04/18 Range/Units 03:30 Sodium 137 (136-145) mEq/L Potassium 4.2 (3.5-5.1) mEq/L Chloride 107 (98-107) mEq/L Carbon Dioxide 22 L (23-29) mEq/L BUN 34 H (8-23) mg/dL Creatinine 1.65 H (0.60-1.20) mg/dL Glucose 108 H (70-105) mg/dL Calcium 8.5 L (8.6-10.3) mg/dL Adrenal panel 05/04/18 Range/Units 03:30 Sodium 137 (136-145) mEq/L Potassium 4.2 (3.5-5.1) mEq/L Chloride 107 (98-107) mEq/L Carbon Dioxide 22 L (23-29) mEq/L BUN 34 H (8-23) mg/dL Creatinine 1.65 H (0.60-1.20) mg/dL Glucose 108 H (70-105) mg/dL Calcium 8.5 L (8.6-10.3) mg/dL - VTE Documentation of Mechanical Device: Intermittent pneumatic compression device Consult Discharge Plan - Plan Additional Instructions: continue current medications for calm/agitation, and to keep pt comfortable and redirectable Referrals: Albertina Huerta MD [Primary Care Provider] - - Attending Attestation For this encounter, I have reviewed the DOOR CLOSER MECHANIC or PA documentation, treatment plan, and medical decision making; and I have had face to face time with this patient.
[2018-05-04] MEDS: traZODone 50 MG TABLET PO SCH (20:39)
[2018-05-05] MEDS: Insulin LISPRO 300 UNITS/3 ML VIAL SQ SCH ×4 (00:02→17:13)
[2018-05-05 03:39] LABS: Basophils # 0.1 K/mcL (0.0-0.2); Basophils % 0.5 %; Eosinophils # 0.3 K/mcL (0.0-0.6); Eosinophils % 2.7 %; Hematocrit 27.9 % (35.3-44.9); Hemoglobin 9.2 g/dL (11.5-15.4); Immature Granulocytes % 0.9 % (0-4); Lymphocytes # 1.6 K/mcL (0.6-4.6); Lymphocytes % 13.9 %; Mean Corpuscular Hemoglobin 28.6 pg (28.0-33.3); Mean Corpuscular Volume 86.6 fL (83.0-100.0); Mean Platelet Volume 9.8 fL (9.4-12.4); Monocytes # 1.2 K/mcL (0.0-1.3); Monocytes % 9.8 %; Neutrophils # 8.4 K/mcL (1.6-8.9); Platelet Count 411 K/mcL (140-400); Red Blood Count 3.22 M/mcL (3.82-4.97); Red Cell Distribution Width 15.9 % (11.5-14.5); Segmented Neutrophils % 72.2 %
[2018-05-05 04:00] LABS: Calcium 8.3 mg/dL (8.6-10.3); Potassium 3.7 mEq/L (3.5-5.1)
[2018-05-05 04:18] LABS: Folate 15.1 ng/mL (3.0-16.0)
[2018-05-05] MEDS: *HR* Heparin 5,000 UNIT/ML VIAL SQ SCH ×2 (05:29→17:11)
[2018-05-05] MEDS: amLODIPine 5 MG TABLET PO SCH (08:19)
[2018-05-05] MEDS: Famotidine 20 MG TABLET PO SCH (08:23)
--- NOTE | 2018-05-05 08:48 | General Surgery Progress Note ---
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 Sigmoid colectomy with end colostomy POD#17 as above. Pathology acute on chronic diverticulitis. CEA unremarkable prolonged postoperative ileus is resolved (with supportive care including one dose of SuBQ methylnaltrexone and PRN Reglan). She is having output in her colostomy, has not had any further episodes of nausea or vomiting, and is tolerating her PO. TPN was stopped 05/03/2018. Megace per primary team. Noted no restraints. IV ATBX per ID 04/29 BL UE dopplers negative for DVT Plan: Continue current diet as tolerate. Protein supplements TID daily wound care per bedside RN: Mahnaz removed. Steri strips in place. Daily would care - wash with antibacterial soap. May leave open to air or place an ABD pad for comfort. Keep abdominal binder in place to protect ostomy. Ostomy care per bedside RN D/C planning per primary team for placement. Anticipate Surgery will sign off pending attending attestation. Thank you for allowing us to participate in Ms. Stinson's care. Please reconsult if questions or needs arise. Qualifiers: Intestinal obstruction type: other intestinal obstruction Intestinal obstruction extent: complete Qualified Code(s): K56.691 - Other complete intestinal obstruction (2) Leukocytosis Current Visit: Yes Status: Acute Suspect pulm vs urinary in nature. No evidence for concern for abdominal source. Managment per ID Qualifiers: Leukocytosis type: unspecified Qualified Code(s): D72.829 - Elevated white blood cell count, unspecified (3) Mass of colon Current Visit: Yes Status: Resolved See assessment and plan above (4) Dementia Current Visit: Yes Status: Chronic See a/p above Qualifiers: Dementia type: unspecified type Dementia behavioral disturbance: with behavioral disturbance Qualified Code(s): F03.91 - Unspecified dementia with behavioral disturbance (5) Protein-calorie malnutrition, moderate Current Visit: Yes Status: Acute See a/p above (6) Postoperative ileus Current Visit: Yes Status: Resolved Prolonged postoperative ileus. See assessment and plan above. (7) Arm edema Current Visit: Yes Status: Resolved See above Subjective Narrative: Confused. Does states she does not have any pain. Unable to obtain any further subjective information. Objective Vital Signs - Last 8 Hours Temp Pulse Resp BP Pulse Ox 05/05/18 07:24 111 16 112/89 95 05/05/18 04:25 98.7 F 97 18 112/69 97 Intake and Output 05/04/18 05/05/18 05/05/18 23:59 07:59 15:59 Intake Total 0 / 0 0 / 0 Output Total 500 / 500 650 / 650 Balance -500 / -500 -650 / -650 Intake: Oral 0 / 0 0 / 0 Output: Urine 0 / 0 Stool 50 / 50 Straight Cath 500 / 500 600 / 600 Other: Meal Dinner Percent of Meal Consumed 0% Stool Consistency loose Stool Color Black - General physical appearance no distress, other (Sitting uprgiht in chair at bedside. No restraints noted.) - ENT atraumatic, normocephalic - Neck Neck exam: trachea midline - Respiratory clear to auscultation - Cardiovascular Cardiovascular exam: Present: distant heart sounds - Abdomen Abdomen: Present: bowel sounds present, soft, non tender, wound (Stoma is pink and moist) Hernia: none - Incision Incision: Present: clean and dry, intact - Integumentary no abnormal pigmentation - Neurologic confused, disoriented - Musculoskeletal normal posture - Psychiatric other - Labs 05/05/18 03:19 05/05/18 03:19 Diabetes panel 05/05/18 Range/Units 03:19 Sodium 140 (136-145) mEq/L Potassium 3.7 (3.5-5.1) mEq/L Chloride 112 H (98-107) mEq/L Carbon Dioxide 21 L (23-29) mEq/L BUN 27 H (8-23) mg/dL Creatinine 1.48 H (0.60-1.20) mg/dL Glucose 96 (70-105) mg/dL Calcium 8.3 L (8.6-10.3) mg/dL Calcium panel 05/05/18 Range/Units 03:19 Calcium 8.3 L (8.6-10.3) mg/dL Pituitary panel 05/05/18 Range/Units 03:19 Sodium 140 (136-145) mEq/L Potassium 3.7 (3.5-5.1) mEq/L Chloride 112 H (98-107) mEq/L Carbon Dioxide 21 L (23-29) mEq/L BUN 27 H (8-23) mg/dL Creatinine 1.48 H (0.60-1.20) mg/dL Glucose 96 (70-105) mg/dL Calcium 8.3 L (8.6-10.3) mg/dL Adrenal panel 05/05/18 Range/Units 03:19 Sodium 140 (136-145) mEq/L Potassium 3.7 (3.5-5.1) mEq/L Chloride 112 H (98-107) mEq/L Carbon Dioxide 21 L (23-29) mEq/L BUN 27 H (8-23) mg/dL Creatinine 1.48 H (0.60-1.20) mg/dL Glucose 96 (70-105) mg/dL Calcium 8.3 L (8.6-10.3) mg/dL - VTE Documentation of Mechanical Device: Intermittent pneumatic compression device Consult Discharge Plan - Plan Additional Instructions: continue current medications for calm/agitation, and to keep pt comfortable and redirectable Referrals: Albertina Huerta MD [Primary Care Provider] - Virgil Hernandez MD [Partnered Physician] - 05/24/18 10:00 am
--- NOTE | 2018-05-05 09:17 | Internal Med Progress Note ---
<Kimberley Mccartney - Last Filed: 05/05/18 17:17> Date of Encounter: 05/05/18 Time of Encounter: 09:12 - Assessment and plan (1) Bowel obstruction Current Visit: Yes Status: Chronic Assessment and plan: Resolved. Due to mass of sigmoid colon. S/p resection and colostomy. Continue pain management. Qualifiers: Intestinal obstruction type: other intestinal obstruction Intestinal obstruction extent: complete Qualified Code(s): K56.691 - Other complete intestinal obstruction (2) Leukocytosis Current Visit: Yes Status: Acute Assessment and plan: From unknown source. Her blood cultures have been negative. Incision site is clean and intact. We will continue Zosyn day 12. Qualifiers: Leukocytosis type: unspecified Qualified Code(s): D72.829 - Elevated white blood cell count, unspecified (3) Acute renal failure due to tubular necrosis Current Visit: Yes Status: Suspected Assessment and plan: Creatinine 1.48 today, improved from 1.65 yesterday. Continues to be high for the past 6 days, possibly pre-renal due to dehydration. Ultrasound neg for obstruction. Please continue bladder scan. Avoid nephrotoxins. (4) Protein-calorie malnutrition, moderate Current Visit: Yes Status: Acute Assessment and plan: Eating a small portion of her meal. Prefers only chocolate pudding. Dietary suggested: soft diet with chopped meat suggested by dietary. Continue megestrol. Consider providing meals Ms. Stinson with her preferred meals. (5) Ileus following gastrointestinal surgery Current Visit: Yes Status: Resolved Assessment and plan: Resolved. No further N/V and having good output per colostomy. Urging her to eat at chair. If she continues to not eat, will consider other dietary options. (6) Hypokalemia Current Visit: Yes Status: Resolved Assessment and plan: Resolved, but will continue to monitor. (7) HTN (hypertension) Current Visit: Yes Status: Chronic Assessment and plan: Resolved. Has history of chronic hypertension. Continue amlodopine, hydralazine and tamsulosin Qualifiers: Hypertension type: essential hypertension Qualified Code(s): I10 - Essential (primary) hypertension (8) HLD (hyperlipidemia) Current Visit: Yes Status: Chronic Assessment and plan: Refused Zocor at admission. May not be beneficial with her age, risk vs. benefit. Will address this after her altered mental status resolves Qualifiers: Hyperlipidemia type: mixed hyperlipidemia Qualified Code(s): E78.2 - Mixed hyperlipidemia (9) Hypothyroidism Current Visit: Yes Status: Chronic Assessment and plan: Continue levothyroxine. Qualifiers: Hypothyroidism type: acquired Qualified Code(s): E03.9 - Hypothyroidism, unspecified (10) Dementia Current Visit: Yes Status: Chronic Assessment and plan: Continue trazadone and donepezil. Decrease night time disturbance Qualifiers: Dementia type: unspecified type Dementia behavioral disturbance: with behavioral disturbance Qualified Code(s): F03.91 - Unspecified dementia with behavioral disturbance (11) Hypocalcemia Current Visit: Yes Status: Acute Assessment and plan: Likely secondary to malnutrition. Progress diet (12) DVT prophylaxis Current Visit: Yes Status: Acute Assessment and plan: Continue Heparin SubQ (13) Altered mental status Current Visit: Yes Status: Acute Assessment and plan: Waxing and waning. Unknown cause, possibly due to lack of sleep overnight. Or it could be infection, pain or due to change of environment. IV fluids were started yesterday and she received 1 dose of norco 7.5 mg. She slept well overnight. This morning she is awake, alert, talking and responding to stimuli. Continue to decrease night time disturbance. Qualifiers: Altered mental status type: disorientation Qualified Code(s): R41.0 - Disorientation, unspecified - Time Spent With Patient Total time spent is greater than 50% in coordination of care (as documented) at patient's floor/unit and/or counseling patient: - Subjective Interval history: Ms. Stinson is a 78 year old female who was seen at bedside today. She is 17 days status post rectosigmoidecty and colostomy. This morning she is awake and alert. She is responding to her name. She is also talking but without congruent thought content. She denies any pain. She denied nausea, vomiting, chest pain, fever or chills. Per bedside career transition specialist she did use the bedside commode but still had half the residual volume post voiding. Her nutrition intake is not significant but she is being urged to eat. Per surgery TPN was only being used for post-op ileus and it is not a good option for [facility] nutrition source. Additionally, because of her mentation and confusion she is not a good candidate for PEG as she may remove it with force. - Constitutional Vitals: Temp Pulse Resp BP Pulse Ox 98.7 F 111 16 112/89 95 05/05/18 04:25 05/05/18 07:24 05/05/18 07:24 05/05/18 07:24 05/05/18 07:24 General appearance: Present: A&O X 1, no acute distress. Absent: answers questions appropriately - Head Head exam: Present: atraumatic - Eye Eye exam: Present: EOMI, sclera anicteric - ENT ENT exam: Present: mucous membranes moist - Neck Neck exam general surgery: Present: full ROM, trachea midline - Respiratory Respiratory exam: Present: CTAB. Absent: accessory muscle use, rales, rhonchi, wheezes - Cardiovascular Cardiovascular exam: Present: +S1, +S2. Absent: JVD - GI/Abdominal GI/Abdominal exam: Present: soft. Absent: tenderness (colostomy bad intact) - Extremities Exam Extremities exam: Present: full ROM, warm. Absent: calf tenderness Additional comments: bilateral lower extremity pulses intact - Psychiatric Psychiatric exam: Present: normal affect. Absent: anxious Additional comments: thought content not congruent - Skin Skin exam: Present: dry, warm. Absent: rash Internal Medicine: Result - Labs CBC & Chem 7: 05/05/18 03:19 05/05/18 03:19 Labs: Short CBC 05/05/18 Range/Units 03:19 WBC 11.7 H (4.3-11.1) K/mcL Hgb 9.2 L (11.5-15.4) g/dL Hct 27.9 L (35.3-44.9) % Plt Count 411 H (140-400) K/mcL Neutrophils # 8.4 (1.6-8.9) K/mcL BMP 05/05/18 03:19 Sodium 140 Potassium 3.7 Chloride 112 H Carbon Dioxide 21 L BUN 27 H Creatinine 1.48 H Glucose 96 Calcium 8.3 L - ABG Interpretation ABG results: PT/INR, D-dimer PT 14.2 Seconds (9.4-12.1) H 04/19/18 04:19 - VTE Documentation of Mechanical Device: Intermittent pneumatic compression device Consult Discharge Plan - Plan Additional Instructions: continue current medications for calm/agitation, and to keep pt comfortable and redirectable Referrals: Virgil Hernandez MD [Partnered Physician] - 05/24/18 10:00 am Albertina Huerta MD [Primary Care Provider] - <Sania Johnson - Last Filed: 05/05/18 18:08> Date of Encounter: 05/05/18 - Assessment and plan (1) Bowel obstruction Current Visit: Yes Status: Chronic Qualifiers: Intestinal obstruction type: other intestinal obstruction Intestinal obstruction extent: complete Qualified Code(s): K56.691 - Other complete intestinal obstruction (2) Hypokalemia Current Visit: Yes Status: Resolved (3) HTN (hypertension) Current Visit: Yes Status: Chronic Qualifiers: Hypertension type: essential hypertension Qualified Code(s): I10 - Essential (primary) hypertension (4) HLD (hyperlipidemia) Current Visit: Yes Status: Chronic Qualifiers: Hyperlipidemia type: mixed hyperlipidemia Qualified Code(s): E78.2 - Mixed hyperlipidemia (5) Hypothyroidism Current Visit: Yes Status: Chronic Qualifiers: Hypothyroidism type: acquired Qualified Code(s): E03.9 - Hypothyroidism, unspecified (6) DVT prophylaxis Current Visit: Yes Status: Acute (7) Dementia Current Visit: Yes Status: Chronic Qualifiers: Dementia type: unspecified type Dementia behavioral disturbance: with behavioral disturbance Qualified Code(s): F03.91 - Unspecified dementia with behavioral disturbance (8) Protein-calorie malnutrition, moderate Current Visit: Yes Status: Acute (9) Leukocytosis Current Visit: Yes Status: Acute Qualifiers: Leukocytosis type: unspecified Qualified Code(s): D72.829 - Elevated white blood cell count, unspecified (10) Ileus following gastrointestinal surgery Current Visit: Yes Status: Resolved (11) Hypocalcemia Current Visit: Yes Status: Acute (12) Acute renal failure due to tubular necrosis Current Visit: Yes Status: Suspected (13) Altered mental status Current Visit: Yes Status: Acute Qualifiers: Altered mental status type: disorientation Qualified Code(s): R41.0 - Disorientation, unspecified - Time Spent With Patient Total time spent is greater than 50% in coordination of care (as documented) at patient's floor/unit and/or counseling patient: - Constitutional Vitals: Temp Pulse Resp BP Pulse Ox 98.2 F 67 16 130/86 97 05/05/18 11:39 05/05/18 11:39 05/05/18 11:39 05/05/18 11:39 05/05/18 11:39 Internal Medicine: Result - Labs CBC & Chem 7: 05/05/18 03:19 05/05/18 03:19 Labs: Short CBC 05/05/18 Range/Units 03:19 WBC 11.7 H (4.3-11.1) K/mcL Hgb 9.2 L (11.5-15.4) g/dL Hct 27.9 L (35.3-44.9) % Plt Count 411 H (140-400) K/mcL Neutrophils # 8.4 (1.6-8.9) K/mcL BMP 05/05/18 03:19 Sodium 140 Potassium 3.7 Chloride 112 H Carbon Dioxide 21 L BUN 27 H Creatinine 1.48 H Glucose 96 Calcium 8.3 L - ABG Interpretation ABG results: PT/INR, D-dimer PT 14.2 Seconds (9.4-12.1) H 04/19/18 04:19 - Attending Attestation I examined this patient and my medical decision-making was reviewed with the Resident Physician. I agree with the documented findings, disposition and treatment plan as described except to the extent set forth below. Patient was up in chair more active today than yesterday. She was more alert for me today, but still confused. Daughter was present at bedside for examination VS Reviewed Labs: reviewed A/P: 1. Bowel obstruction - secondary to acute/chronic diverticulitis with scarring. Status-post proctosigmoidectomy POD #17. 2. Acute Delirium 3. Dementia 4. Acute renal failure, acute on chronic renal failure 5. Hypertension 6. Moderate protein calorie malnutrition 7. Leukocytosis. - Stable from surgical stand point, Surgery has signed off - Delirium precautions - Encourage PO intake - Renal function stable, likely patient new baseline renal function - Received 10 days Zosyn, discontinued today Per daughter (POA), we made a request for transfer, I called [facility] in [place]. They did not accept this patient for transfer. The daughter did note to me later in the day she does see some improvement in her eating a little more. Nursing does report to me that she is still reluctant to eat. I did inform daughter that she may be waxing and waning and she may return to non cooperative and agitated state. Daughter agrees to encourage PO and also working on discharging to swing bed.
[2018-05-05] MEDS: Piperacillin/Tazobactam 3.375 GM in 0.9 % Sodium Chloride Mini Bag 100 ML IVPB SCH (12:00)
--- NOTE | 2018-05-05 12:37 | Infectious Disease Progress No ---
Date of Encounter: 05/05/18 Time of Encounter: 12:35 - Assessment and Plan (1) Sepsis Current Visit: Yes Status: Acute The patient had three SIRS criteria (tachycardia, leukocytosis, and fever). Etiology unclear: intra-abdominal (peritonitis) vs. pulmonary (pneumonia) vs. non-infectious. The patient did have some spillage of bowel contents into the abdomen intra-op, but CT negative for abscess or fluid collection. WBC trending down, but had low-grade fever overnight and tachycardia persists. Blood culture drawn 04/22/18 is negative x 1 set. Repeat blood culture drawn 04/24/18 is negative x 1 set. Repeat blood cultures drawn 04/25/18 are negative x 2 sets. Additional blood cultures drawn 04/27/18 are negative x 2 sets. Repeat blood cultures drawn 05/03/18 are NGTD x 2 sets. The patient's mental status makes it very difficult to obtain ROS information from her. CT of the abdomen and pelvis showed findings consistent with ileus and some ascites, but no other acute intra-abdominal process. It did show adjacent consolidation at the lung bases. CT chest shows bilateral upper lobe nodular opacities, concerning for infectious process. Urinalysis negative. Culture grew out only yeast. The patient does have a PICC line, but clinically does not appear infected. Surgical incision looks great. Check procalcitonin. --> mildly elevated at 0.16. Check peripheral smear. --> reveals reactive leukocytosis Amylase and lipase elevated, but abdominal exam benign and CT negative for pancreatitis. Repeat CXR showed bibasilar atelectasis and small pleural effusions. No PNA. The patient does not appear to have any URI symptoms. S. pneumo and Legionella UATs negative. Vancomycin stopped due to lack of MRSA on cultures and worsening GEORGI. Continue Zosyn 3.375 grams IV Q8H (day 11). Micafungin discontinued. Monitor renal function and for drug toxicity and dose-adjust antibiotics. Duration of treatment depends on the clinical picture. Per nursing, family has requested transfer to [facility] for a second opinion. Will continue current course of treatment for now, but consider stopping Zosyn and seeing how the patient does clinically. Qualifiers: Qualified Code(s): A41.9 - Sepsis, unspecified organism (2) Leukocytosis Current Visit: Yes Status: Acute Etiology unclear. Neutrophilic predominance. Improved. Workup as above. Continue to trend. Qualifiers: Qualified Code(s): D72.829 - Elevated white blood cell count, unspecified (3) Abnormal CT scan, chest Current Visit: Yes Status: Acute CT of the chest completed 04/27/18 shows moderate bilateral pleural effusions with bibasilar lung opacities likely representing atelectasis. It also shows upper lobe sub-solid nodular opacities that are suspected to be infectious. Recommend pulmonary to evaluate. Repeat CXR negative for PNA. (4) Encephalopathy Current Visit: Yes Status: Acute Etiology unclear, but likely multifactorial: sepsis + anesthesia + pain medication +/- other. Appears improved. Continue to monitor closely. (5) Ileus following gastrointestinal surgery Current Visit: Yes Status: Resolved CT of the abdomen and pelvis completed 04/27/18 showed findings consistent with post-op ileus. Resolved. Management per the surgery team. (6) Mass of colon Current Visit: Yes Status: Resolved CT of the abdomen and pelvis completed 04/18/18 showed a suspicious infiltrating mass of the colon with obstruction. Transferred to [facility]. Surgery consulted and following. 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 Operative note reviewed. Pathology negative for malignancy, but did show acute on chronic diverticulosis with abscess and giant cell formation. Post-op care per the general surgery team. (7) Bowel obstruction Current Visit: Yes Status: Chronic Secondary to colonic mass. Resolved. Qualifiers: Qualified Code(s): K56.691 - Other complete intestinal obstruction (8) Hypokalemia Current Visit: Yes Status: Resolved Replacement per the primary team. (9) HTN (hypertension) Current Visit: Yes Status: Chronic Qualifiers: Qualified Code(s): I10 - Essential (primary) hypertension (10) HLD (hyperlipidemia) Current Visit: Yes Status: Chronic Qualifiers: Qualified Code(s): E78.2 - Mixed hyperlipidemia (11) Hypothyroidism Current Visit: Yes Status: Chronic Qualifiers: Qualified Code(s): E03.9 - Hypothyroidism, unspecified (12) Dementia Current Visit: Yes Status: Chronic Qualifiers: Qualified Code(s): F03.91 - Unspecified dementia with behavioral disturbance (13) GEORGI (acute kidney injury) Current Visit: Yes Status: Acute Etiology not clear. Likely multifactorial. Monitor kidney function closely. Continue to trend. (14) Superficial venous thrombosis of right arm Current Visit: Yes Status: Acute Venous doppler study shows SVT in the right basilic and right cephalic veins. Supportive care. Anticoagulation per the primary team. - Subjective Interval history: Patient seen and examined with family at bedside. No acute events noted overnight. Patient remains confused and restless. Unable to provide ROS information this morning, but denies pain. Restraints have been removed. Family states the patient is not eating much. TPN discontinued by the surgery team. [place] was discontinued and patient noted to have high bladder volume on bladder scan so she had a straight cath. Infect Dis PN-Objective Data - Labs CBC & Chem 7: 05/05/18 03:19 05/05/18 03:19 Labs: Laboratory Results - last 24 hr 05/03/18 05/05/18 05/05/18 17:05 03:19 03:19 WBC 11.7 H RBC 3.22 L Hgb 9.2 L Hct 27.9 L MCV 86.6 MCH 28.6 MCHC 33.0 RDW 15.9 H Plt Count 411 H MPV 9.8 Immature Gran % 0.9 Seg Neutrophils % 72.2 Lymphocytes % 13.9 Monocytes % 9.8 Eosinophils % 2.7 Basophils % 0.5 Neutrophils # 8.4 Lymphocytes # 1.6 Monocytes # 1.2 Eosinophils # 0.3 Basophils # 0.1 Sodium 140 Potassium 3.7 Chloride 112 H Carbon Dioxide 21 L BUN 27 H Creatinine 1.48 H Est GFR ( Amer) 41 L Est GFR (Non-Af Amer) 34 L BUN/Creatinine Ratio 18 Glucose 96 POC Glucose 109 H Calculated Osmolality 295 Calcium 8.3 L Vitamin B12 Folate 05/05/18 05/05/18 03:19 11:44 WBC RBC Hgb Hct MCV MCH MCHC RDW Plt Count MPV Immature Gran % Seg Neutrophils % Lymphocytes % Monocytes % Eosinophils % Basophils % Neutrophils # Lymphocytes # Monocytes # Eosinophils # Basophils # Sodium Potassium Chloride Carbon Dioxide BUN Creatinine Est GFR ( Amer) Est GFR (Non-Af Amer) BUN/Creatinine Ratio Glucose POC Glucose 93 Calculated Osmolality Calcium Vitamin B12 412 Folate 15.1 Cultures: Cultures 05/03/18 12:48 Blood Culture - Preliminary Peripheral Venipuncture Culture is incubating and being continuously monitored for growth. Final report to follow. 05/03/18 12:50 Blood Culture - Preliminary Peripheral Venipuncture Culture is incubating and being continuously monitored for growth. Final report to follow. 04/27/18 16:10 Blood Culture - Final Peripheral Venipuncture No growth. Final report. 04/27/18 16:10 Blood Culture - Final Peripheral Venipuncture No growth. Final report. 04/27/18 10:25 Urine Culture - Final Urine,Catheterized Beatris albicans 04/25/18 07:55 Blood Culture - Final Peripheral Venipuncture No growth. Final report. 04/25/18 07:57 Blood Culture - Final Peripheral Venipuncture No growth. Final report. 04/24/18 05:27 Blood Culture - Final Peripheral Venipuncture No growth. Final report. 04/27/18 10:29 Legionella Antigen - Final Urine,[place] Streptococcus pneumoniae Antigen (M - Final 04/22/18 08:24 Blood Culture - Final Peripheral Venipuncture No growth. Final report. Serology 04/28/18 04/27/18 04/25/18 Range/Units 14:15 10:35 08:10 Urine Color Dark Yellow Yellow (Yellow) Urine Clarity Cloudy A Clear (Clear) Urine pH 6.0 6.0 (5.0-8.0) pH Units Ur Specific [place] > 1.030 H 1.019 (1.010-1.025) Urine Protein 100 H Negative (Neg-Trace) mg/dL Urine Glucose (UA) Normal Normal (Normal) mg/dL Urine Ketones Negative Trace H (Negative) mg/dL Urine Blood Small H Negative (Negative) Urine Nitrite Negative Negative (Negative) Urine Bilirubin Negative Negative (Negative) Urine Urobilinogen Normal Normal (Normal) mg/dL Ur Leukocyte Esterase Small H Negative (Negative) Urine Microscopic RBC 3-5 H (0-3) per hpf Urine Microscopic WBC 50-100 H (0-3) per hpf Ur Squamous Epith Cells Many H (None-Few) per lpf Urine Bacteria Many H (None-Few) per hpf Hyaline Casts None Seen (None-Few) per lpf Urine Yeast Many H (None Seen) per hpf Ur Culture Indicated? (NO) Chlamy pneumoniae PCR Not Detected (Not Detect) Adenovirus (PCR) Not Detected (Not Detect) B. pertussis DNA (PCR) Not Detected (Not Detect) B.parapertussis DNA PCR Not Detected (Not Detect) Coronavirus OC43 (PCR) Not Detected (Not Detect) Coronavirus HKU1 (PCR) Not Detected (Not Detect) Coronavirus 229E (PCR) Not Detected (Not Detect) Coronavirus NL63 (PCR) Not Detected (Not Detect) Human Metapneumovir PCR Not Detected (Not Detect) Influenza A (H1) PCR Not Detected (Not Detect) Influ A (H1N1/09) PCR Not Detected (Not Detect) Influenza A (H3) PCR Not Detected (Not Detect) Influenza A Untype (PCR) Not Detected (Not Detect) Influenza Type B (PCR) Not Detected (Not Detect) M.pneumoniae DNA (PCR) Not Detected (Not Detect) Parainfluenza 1 (PCR) Not Detected (Not Detect) Parainfluenza 2 (PCR) Not Detected (Not Detect) Parainfluenza 3 (PCR) Not Detected (Not Detect) Parainfluenza 4 (PCR) Not Detected (Not Detect) RSV (PCR) Not Detected (Not Detect) Entero/Rhino (PCR) Not Detected (Not Detect) 04/22/18 Range/Units 09:16 Urine Color Dark Yellow (Yellow) Urine Clarity Clear (Clear) Urine pH 5.5 (5.0-8.0) pH Units Ur Specific [place] > 1.030 H (1.010-1.025) Urine Protein Trace (Neg-Trace) mg/dL Urine Glucose (UA) Normal (Normal) mg/dL Urine Ketones 15 H (Negative) mg/dL Urine Blood Negative (Negative) Urine Nitrite Positive A (Negative) Urine Bilirubin Negative (Negative) Urine Urobilinogen Normal (Normal) mg/dL Ur Leukocyte Esterase Trace H (Negative) Urine Microscopic RBC 5-15 H (0-3) per hpf Urine Microscopic WBC 0-3 (0-3) per hpf Ur Squamous Epith Cells Many H (None-Few) per lpf Urine Bacteria None Seen (None-Few) per hpf Hyaline Casts None Seen (None-Few) per lpf Urine Yeast (None Seen) per hpf Ur Culture Indicated? NO. A (NO) Chlamy pneumoniae PCR (Not Detect) Adenovirus (PCR) (Not Detect) B. pertussis DNA (PCR) (Not Detect) B.parapertussis DNA PCR (Not Detect) Coronavirus OC43 (PCR) (Not Detect) Coronavirus HKU1 (PCR) (Not Detect) Coronavirus 229E (PCR) (Not Detect) Coronavirus NL63 (PCR) (Not Detect) Human Metapneumovir PCR (Not Detect) Influenza A (H1) PCR (Not Detect) Influ A (H1N1/09) PCR (Not Detect) Influenza A (H3) PCR (Not Detect) Influenza A Untype (PCR) (Not Detect) Influenza Type B (PCR) (Not Detect) M.pneumoniae DNA (PCR) (Not Detect) Parainfluenza 1 (PCR) (Not Detect) Parainfluenza 2 (PCR) (Not Detect) Parainfluenza 3 (PCR) (Not Detect) Parainfluenza 4 (PCR) (Not Detect) RSV (PCR) (Not Detect) Entero/Rhino (PCR) (Not Detect) Exam - Constitutional Vitals: Temp Pulse Resp BP Pulse Ox 98.2 F 67 16 130/86 97 05/05/18 11:39 05/05/18 11:39 05/05/18 11:39 05/05/18 11:39 05/05/18 11:39 General appearance: average body habitus, cooperative, no acute distress - Head Head exam: Present: atraumatic, normal inspection, normocephalic - Eye Eye exam: Present: EOMI, normal appearance, PERRL Pupils: Present: normal accommodation - ENT ENT exam: Present: mucous membranes dry - Neck Neck exam: Present: normal inspection - Respiratory Respiratory exam: Present: CTAB. Absent: rales, respiratory distress, rhonchi, wheezes - Cardiovascular Cardiovascular exam: Present: +S1, +S2, tachycardia. Absent: irregular rhythm - GI/Abdominal GI/Abdominal exam: Present: normal bowel sounds, soft, tenderness (generalized) . Absent: distended Additional comments: Midline abdominal incision [employer] with steri-strips intact. Colostomy noted to the left lower quadrant with liquid green stool noted in the collection bag. - Extremities Exam Extremities exam: Present: normal inspection. Absent: joint swelling, pedal edema, tenderness - Neurological Exam Neurological exam: Present: alert. Absent: oriented X3 (Oriented to person only.), no focal deficits (MAHMOOD x 4 spontaneously.) - Psychiatric Psychiatric exam: Present: agitated - Skin Skin exam: Present: dry, intact, normal color, warm Additional comments: PICC line noted to the RUE With transparent dressing C/D/I. - VTE Documentation of Mechanical Device: Intermittent pneumatic compression device Consult Discharge Plan - Plan Additional Instructions: continue current medications for calm/agitation, and to keep pt comfortable and redirectable Referrals: Virgil Hernandez MD [Partnered Physician] - 05/24/18 10:00 am Albertina Huerta MD [Primary Care Provider] - - Attending Attestation I examined this patient and my medical decision-making was reviewed with the Resident Physician. I agree with the documented findings, disposition and treatment plan as described except to the extent set forth below.
[2018-05-05] MEDS ORDERED: *HR* HYDROcodone/Acet 5/325 mg TABLET PO PRN (15:51)
[2018-05-05] MEDS ORDERED: HYDROcodone/Acet 5-217 mg/10mL 10 ML UDC PO PRN (16:36)
[2018-05-05] MEDS: traZODone 50 MG TABLET PO SCH (20:24)
[2018-05-06] MEDS: Insulin LISPRO 300 UNITS/3 ML VIAL SQ SCH ×5 (01:01→23:18)
[2018-05-06] MEDS: *HR* Heparin 5,000 UNIT/ML VIAL SQ SCH ×2 (05:15→17:41)
[2018-05-06 05:51] LABS: Hemoglobin 9.9 g/dL (11.5-15.4); Mean Corpuscular Hemoglobin 28.8 pg (28.0-33.3); Mean Corpuscular Volume 87.2 fL (83.0-100.0); Mean Platelet Volume 9.9 fL (9.4-12.4); Platelet Count 450 K/mcL (140-400); Red Blood Count 3.44 M/mcL (3.82-4.97); Red Cell Distribution Width 15.9 % (11.5-14.5)
[2018-05-06 06:00] LABS: Calcium 8.5 mg/dL (8.6-10.3); Potassium 3.6 mEq/L (3.5-5.1)
[2018-05-06] MEDS: amLODIPine 5 MG TABLET PO SCH (09:17)
[2018-05-06] MEDS: Famotidine 20 MG TABLET PO SCH (09:17)
--- NOTE | 2018-05-06 11:15 | Infectious Disease Progress No ---
Date of Encounter: 05/06/18 Time of Encounter: 11:13 - Assessment and Plan (1) Sepsis Current Visit: Yes Status: Acute The patient had three SIRS criteria (tachycardia, leukocytosis, and fever). Etiology unclear: intra-abdominal (peritonitis) vs. pulmonary (pneumonia) vs. non-infectious. The patient did have some spillage of bowel contents into the abdomen intra-op, but CT negative for abscess or fluid collection. WBC trending down, but had low-grade fever overnight and tachycardia persists. Blood culture drawn 04/22/18 is negative x 1 set. Repeat blood culture drawn 04/24/18 is negative x 1 set. Repeat blood cultures drawn 04/25/18 are negative x 2 sets. Additional blood cultures drawn 04/27/18 are negative x 2 sets. Repeat blood cultures drawn 05/03/18 are NGTD x 2 sets. The patient's mental status makes it very difficult to obtain ROS information from her. CT of the abdomen and pelvis showed findings consistent with ileus and some ascites, but no other acute intra-abdominal process. It did show adjacent consolidation at the lung bases. CT chest shows bilateral upper lobe nodular opacities, concerning for infectious process. Urinalysis negative. Culture grew out only yeast. The patient does have a PICC line, but clinically does not appear infected. Surgical incision looks great. Check procalcitonin. --> mildly elevated at 0.16. Check peripheral smear. --> reveals reactive leukocytosis Amylase and lipase elevated, but abdominal exam benign and CT negative for pancreatitis. Repeat CXR showed bibasilar atelectasis and small pleural effusions. No PNA. The patient does not appear to have any URI symptoms. S. pneumo and Legionella UATs negative. Vancomycin stopped due to lack of MRSA on cultures and worsening GEORGI. Micafungin discontinued. Zosyn discontinued after 11 day course. Continue to monitor off antibiotics. Qualifiers: Sepsis type: sepsis due to unspecified organism Qualified Code(s): A41.9 - Sepsis, unspecified organism (2) Leukocytosis Current Visit: Yes Status: Resolved Etiology unclear. Neutrophilic predominance. WBC normalized this morning. Workup as above. Continue to trend. Qualifiers: Leukocytosis type: unspecified Qualified Code(s): D72.829 - Elevated white blood cell count, unspecified (3) Abnormal CT scan, chest Current Visit: Yes Status: Acute CT of the chest completed 04/27/18 shows moderate bilateral pleural effusions with bibasilar lung opacities likely representing atelectasis. It also shows upper lobe sub-solid nodular opacities that are suspected to be infectious. Recommend pulmonary to evaluate. Repeat CXR negative for PNA. (4) Encephalopathy Current Visit: Yes Status: Acute Etiology unclear, but likely multifactorial: sepsis + anesthesia + pain medication +/- other. Appears improved. Continue to monitor closely. (5) Ileus following gastrointestinal surgery Current Visit: Yes Status: Resolved CT of the abdomen and pelvis completed 04/27/18 showed findings consistent with post-op ileus. Resolved. Management per the surgery team. (6) Mass of colon Current Visit: Yes Status: Resolved CT of the abdomen and pelvis completed 04/18/18 showed a suspicious infiltrating mass of the colon with obstruction. Transferred to [facility]. Surgery consulted and following. 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 Operative note reviewed. Pathology negative for malignancy, but did show acute on chronic diverticulosis with abscess and giant cell formation. Post-op care per the general surgery team. (7) Bowel obstruction Current Visit: Yes Status: Resolved Secondary to colonic mass. Resolved. Qualifiers: Intestinal obstruction type: other intestinal obstruction Intestinal obstruction extent: complete Qualified Code(s): K56.691 - Other complete intestinal obstruction (8) Hypokalemia Current Visit: Yes Status: Resolved Replacement per the primary team. (9) HTN (hypertension) Current Visit: Yes Status: Chronic Qualifiers: Hypertension type: essential hypertension Qualified Code(s): I10 - Essential (primary) hypertension (10) HLD (hyperlipidemia) Current Visit: Yes Status: Chronic Qualifiers: Hyperlipidemia type: mixed hyperlipidemia Qualified Code(s): E78.2 - Mixed hyperlipidemia (11) Hypothyroidism Current Visit: Yes Status: Chronic Qualifiers: Hypothyroidism type: acquired Qualified Code(s): E03.9 - Hypothyroidism, unspecified (12) Dementia Current Visit: Yes Status: Chronic Qualifiers: Dementia type: unspecified type Dementia behavioral disturbance: with behavioral disturbance Qualified Code(s): F03.91 - Unspecified dementia with behavioral disturbance (13) GEORGI (acute kidney injury) Current Visit: Yes Status: Acute Etiology not clear. Likely multifactorial. Improved. Monitor kidney function closely. Continue to trend. (14) Superficial venous thrombosis of right arm Current Visit: Yes Status: Acute Venous doppler study shows SVT in the right basilic and right cephalic veins. Supportive care. Anticoagulation per the primary team. - Subjective Interval history: Patient seen and examined. No acute events noted overnight. Patient remains confused and restless. Unable to provide ROS information this morning, but denies pain. Restraints have been removed. Per nursing, patient retains urine and is having Q6H bladder scans. Antibiotics discontinued 05/05/18. Infect Dis PN-Objective Data - Labs CBC & Chem 7: 05/06/18 05:26 05/06/18 05:26 Labs: Laboratory Results - last 24 hr 05/05/18 05/05/18 05/05/18 11:44 17:12 23:48 WBC RBC Hgb Hct MCV MCH MCHC RDW Plt Count MPV Sodium Potassium Chloride Carbon Dioxide BUN Creatinine Est GFR ( Amer) Est GFR (Non-Af Amer) BUN/Creatinine Ratio Glucose POC Glucose 93 95 96 Calculated Osmolality Calcium 05/06/18 05/06/18 05/06/18 05:22 05:26 05:26 WBC 9.1 RBC 3.44 L Hgb 9.9 L Hct 30.0 L MCV 87.2 MCH 28.8 MCHC 33.0 RDW 15.9 H Plt Count 450 H MPV 9.9 Sodium 140 Potassium 3.6 Chloride 111 H Carbon Dioxide 21 L BUN 22 Creatinine 1.30 H Est GFR ( Amer) 48 L Est GFR (Non-Af Amer) 40 L BUN/Creatinine Ratio 17 Glucose 92 POC Glucose 83 Calculated Osmolality 293 Calcium 8.5 L Cultures: Cultures 05/03/18 12:48 Blood Culture - Preliminary Peripheral Venipuncture Culture is incubating and being continuously monitored for growth. Final report to follow. 05/03/18 12:50 Blood Culture - Preliminary Peripheral Venipuncture Culture is incubating and being continuously monitored for growth. Final report to follow. 04/27/18 16:10 Blood Culture - Final Peripheral Venipuncture No growth. Final report. 04/27/18 16:10 Blood Culture - Final Peripheral Venipuncture No growth. Final report. 04/27/18 10:25 Urine Culture - Final Urine,Catheterized Beatris albicans 04/25/18 07:55 Blood Culture - Final Peripheral Venipuncture No growth. Final report. 04/25/18 07:57 Blood Culture - Final Peripheral Venipuncture No growth. Final report. 04/24/18 05:27 Blood Culture - Final Peripheral Venipuncture No growth. Final report. 04/27/18 10:29 Legionella Antigen - Final Urine,[place] Streptococcus pneumoniae Antigen (M - Final 04/22/18 08:24 Blood Culture - Final Peripheral Venipuncture No growth. Final report. Serology 04/28/18 04/27/18 04/25/18 Range/Units 14:15 10:35 08:10 Urine Color Dark Yellow Yellow (Yellow) Urine Clarity Cloudy A Clear (Clear) Urine pH 6.0 6.0 (5.0-8.0) pH Units Ur Specific [place] > 1.030 H 1.019 (1.010-1.025) Urine Protein 100 H Negative (Neg-Trace) mg/dL Urine Glucose (UA) Normal Normal (Normal) mg/dL Urine Ketones Negative Trace H (Negative) mg/dL Urine Blood Small H Negative (Negative) Urine Nitrite Negative Negative (Negative) Urine Bilirubin Negative Negative (Negative) Urine Urobilinogen Normal Normal (Normal) mg/dL Ur Leukocyte Esterase Small H Negative (Negative) Urine Microscopic RBC 3-5 H (0-3) per hpf Urine Microscopic WBC 50-100 H (0-3) per hpf Ur Squamous Epith Cells Many H (None-Few) per lpf Urine Bacteria Many H (None-Few) per hpf Hyaline Casts None Seen (None-Few) per lpf Urine Yeast Many H (None Seen) per hpf Ur Culture Indicated? (NO) Chlamy pneumoniae PCR Not Detected (Not Detect) Adenovirus (PCR) Not Detected (Not Detect) B. pertussis DNA (PCR) Not Detected (Not Detect) B.parapertussis DNA PCR Not Detected (Not Detect) Coronavirus OC43 (PCR) Not Detected (Not Detect) Coronavirus HKU1 (PCR) Not Detected (Not Detect) Coronavirus 229E (PCR) Not Detected (Not Detect) Coronavirus NL63 (PCR) Not Detected (Not Detect) Human Metapneumovir PCR Not Detected (Not Detect) Influenza A (H1) PCR Not Detected (Not Detect) Influ A (H1N1/09) PCR Not Detected (Not Detect) Influenza A (H3) PCR Not Detected (Not Detect) Influenza A Untype (PCR) Not Detected (Not Detect) Influenza Type B (PCR) Not Detected (Not Detect) M.pneumoniae DNA (PCR) Not Detected (Not Detect) Parainfluenza 1 (PCR) Not Detected (Not Detect) Parainfluenza 2 (PCR) Not Detected (Not Detect) Parainfluenza 3 (PCR) Not Detected (Not Detect) Parainfluenza 4 (PCR) Not Detected (Not Detect) RSV (PCR) Not Detected (Not Detect) Entero/Rhino (PCR) Not Detected (Not Detect) 04/22/18 Range/Units 09:16 Urine Color Dark Yellow (Yellow) Urine Clarity Clear (Clear) Urine pH 5.5 (5.0-8.0) pH Units Ur Specific [place] > 1.030 H (1.010-1.025) Urine Protein Trace (Neg-Trace) mg/dL Urine Glucose (UA) Normal (Normal) mg/dL Urine Ketones 15 H (Negative) mg/dL Urine Blood Negative (Negative) Urine Nitrite Positive A (Negative) Urine Bilirubin Negative (Negative) Urine Urobilinogen Normal (Normal) mg/dL Ur Leukocyte Esterase Trace H (Negative) Urine Microscopic RBC 5-15 H (0-3) per hpf Urine Microscopic WBC 0-3 (0-3) per hpf Ur Squamous Epith Cells Many H (None-Few) per lpf Urine Bacteria None Seen (None-Few) per hpf Hyaline Casts None Seen (None-Few) per lpf Urine Yeast (None Seen) per hpf Ur Culture Indicated? NO. A (NO) Chlamy pneumoniae PCR (Not Detect) Adenovirus (PCR) (Not Detect) B. pertussis DNA (PCR) (Not Detect) B.parapertussis DNA PCR (Not Detect) Coronavirus OC43 (PCR) (Not Detect) Coronavirus HKU1 (PCR) (Not Detect) Coronavirus 229E (PCR) (Not Detect) Coronavirus NL63 (PCR) (Not Detect) Human Metapneumovir PCR (Not Detect) Influenza A (H1) PCR (Not Detect) Influ A (H1N1/09) PCR (Not Detect) Influenza A (H3) PCR (Not Detect) Influenza A Untype (PCR) (Not Detect) Influenza Type B (PCR) (Not Detect) M.pneumoniae DNA (PCR) (Not Detect) Parainfluenza 1 (PCR) (Not Detect) Parainfluenza 2 (PCR) (Not Detect) Parainfluenza 3 (PCR) (Not Detect) Parainfluenza 4 (PCR) (Not Detect) RSV (PCR) (Not Detect) Entero/Rhino (PCR) (Not Detect) Exam - Constitutional Vitals: Temp Pulse Resp BP Pulse Ox 99.8 F H 84 15 156/88 98 05/06/18 10:27 05/06/18 10:27 05/06/18 10:27 05/06/18 10:27 05/06/18 10:27 General appearance: average body habitus, cooperative, no acute distress - Head Head exam: Present: atraumatic, normal inspection, normocephalic - Eye Eye exam: Present: EOMI, normal appearance, PERRL Pupils: Present: normal accommodation - ENT ENT exam: Present: mucous membranes dry - Neck Neck exam: Present: normal inspection - Respiratory Respiratory exam: Present: CTAB. Absent: rales, respiratory distress, rhonchi, wheezes - Cardiovascular Cardiovascular exam: Present: tachycardia. Absent: irregular rhythm - GI/Abdominal GI/Abdominal exam: Present: normal bowel sounds, soft, tenderness (Generalized, patient grimaces with palpation.). Absent: distended Additional comments: Colostomy noted to the LLQ with liquid green stool noted in the collection bag. Midline abdominal incision with steri-strips intact. Wound edges well- approximated. No erythema, warmth, or drainage noted. - Extremities Exam Extremities exam: Present: normal inspection. Absent: joint swelling, pedal edema, tenderness - Neurological Exam Neurological exam: Present: altered, no focal deficits (MAHMOOD x 4.). Absent: facial droop - Psychiatric Psychiatric exam: Present: agitated (Restless) - Skin Skin exam: Present: dry, intact, normal color, warm - VTE Documentation of Mechanical Device: Intermittent pneumatic compression device Consult Discharge Plan - Plan Additional Instructions: continue current medications for calm/agitation, and to keep pt comfortable and redirectable Referrals: Virgil Hernandez MD [Partnered Physician] - 05/24/18 10:00 am Albertina Huerta MD [Primary Care Provider] - - Attending Attestation I examined this patient and my medical decision-making was reviewed with the Resident Physician. I agree with the documented findings, disposition and treatment plan as described except to the extent set forth below.
--- NOTE | 2018-05-06 13:33 | Internal Med Progress Note ---
<Kimberley Mccartney - Last Filed: 05/06/18 13:30> Date of Encounter: 05/06/18 Time of Encounter: 01:30 - Assessment and plan (1) Altered mental status Current Visit: Yes Status: Acute Assessment and plan: Waxing and waning. Unknown cause, possibly due to disturbance in her sleep cycle. Or it could be infection, pain or due to change of environment. This morning she is awake, alert, talking and responding to stimuli although her thought content is not congruent. Continue to decrease night time disturbance. Qualifiers: Altered mental status type: disorientation Qualified Code(s): R41.0 - Disorientation, unspecified (2) Bowel obstruction Current Visit: Yes Status: Resolved Assessment and plan: Resolved. Due to mass of sigmoid colon. S/p resection and colostomy. Continue pain management. Qualifiers: Intestinal obstruction type: other intestinal obstruction Intestinal obstruction extent: complete Qualified Code(s): K56.691 - Other complete intestinal obstruction (3) Leukocytosis Current Visit: Yes Status: Resolved Assessment and plan: Resolved. Was from unknown source. Her blood cultures have been negative. Incision site is clean and intact. Zosyn stopped 05/04/18. WBC decreased and returned to normal limits today. Qualifiers: Leukocytosis type: unspecified Qualified Code(s): D72.829 - Elevated white blood cell count, unspecified (4) Acute renal failure due to tubular necrosis Current Visit: Yes Status: Suspected Assessment and plan: Creatinine 1.30 today, improved from 1.48 yesterday. Continues to be high for the past 7 days, possibly pre-renal due to dehydration. Ultrasound neg for obstruction. Please continue bladder scan if urinary retention. Avoid nephrotoxins. (5) Protein-calorie malnutrition, moderate Current Visit: Yes Status: Acute Assessment and plan: Eating a small portion of her meal. Prefers only chocolate pudding. Dietary suggested: soft diet with chopped meat suggested by dietary. Consider providing Ms. Stinson with her preferred meals to increase her caloric intake. (6) Ileus following gastrointestinal surgery Current Visit: Yes Status: Resolved Assessment and plan: Resolved. No further N/V and having good output per colostomy. Urging her to eat at chair. If she continues to not eat, will consider adding dietary supplement options. (7) Hypokalemia Current Visit: Yes Status: Resolved Assessment and plan: Resolved, but will continue to monitor. (8) HTN (hypertension) Current Visit: Yes Status: Chronic Assessment and plan: Resolved. Has history of chronic hypertension. Continue amlodopine, hydralazine and tamsulosin Qualifiers: Hypertension type: essential hypertension Qualified Code(s): I10 - Essential (primary) hypertension (9) HLD (hyperlipidemia) Current Visit: Yes Status: Chronic Assessment and plan: Refused Zocor at admission. May not be beneficial with her age, risk vs. benefit. May consider addressing this after her altered mental status resolves Qualifiers: Hyperlipidemia type: mixed hyperlipidemia Qualified Code(s): E78.2 - Mixed hyperlipidemia (10) Hypothyroidism Current Visit: Yes Status: Chronic Assessment and plan: Continue levothyroxine. Qualifiers: Hypothyroidism type: acquired Qualified Code(s): E03.9 - Hypothyroidism, unspecified (11) Dementia Current Visit: Yes Status: Chronic Assessment and plan: Continue trazadone and donepezil. Decrease night time disturbance. Try to reorient Ms. Stinson when she is confused. Qualifiers: Dementia type: unspecified type Dementia behavioral disturbance: with behavioral disturbance Qualified Code(s): F03.91 - Unspecified dementia with behavioral disturbance (12) Hypocalcemia Current Visit: Yes Status: Acute Assessment and plan: Resolving, likely secondary to malnutrition. Progress diet (13) DVT prophylaxis Current Visit: Yes Status: Acute Assessment and plan: Continue Heparin SubQ (14) Anemia Current Visit: Yes Status: Acute Assessment and plan: Anemia ongoing since 04/20/18. Suspected due to operative blood loss. Because her nutrition has not been great, it is likely due to procedural blood loss and culmination of decreased diet. Does not seem to be an acute process as hemoglobin has been stable. There is no evidence of blood loss, colostomy bag has greenish stool. Also, penicillin and its derivatives can cause anemia and she was on a penicillin for 11 days. The medication was stopped two days ago. Her hemoglobin remains stable at this time and with increased in diet it should improve. Will continue to monitor. Qualifiers: Anemia type: unspecified type Qualified Code(s): D64.9 - Anemia, unspecified - Time Spent With Patient Total time spent is greater than 50% in coordination of care (as documented) at patient's floor/unit and/or counseling patient: - Subjective Interval history: Ms. Stinson is a 78 year old female who was seen at bedside today. She is 1 days status post rectosigmoidecty and colostomy. This morning she is awake and alert. She is responding to her name. She is also talking but without congruent thought content. She is slightly more comfortable in bed than the past a few days. Per bedside eye care professional she is using the bedside commode. Her nutrition intake is not significant but she is being urged to eat. Per surgery TPN was only being used for post-op ileus and it is not a good option for [facility] nutrition source. Additionally, because of her mentation and confusion she is not a good candidate for PEG as she may remove it with force. She completed 35% of her lunch which is more than the past a few days. She is improving and may benefit from ensure or other dietary supplements. - Constitutional Vitals: Temp Pulse Resp BP Pulse Ox 99.8 F H 84 15 156/88 98 05/06/18 10:27 05/06/18 10:27 05/06/18 10:27 05/06/18 10:27 05/06/18 10:27 General appearance: Present: A&O X 1, no acute distress. Absent: answers questions appropriately - Head Head exam: Present: atraumatic, normocephalic - Eye Eye exam: Present: EOMI, sclera anicteric - ENT ENT exam: Present: mucous membranes moist - Neck Neck exam general surgery: Present: full ROM, trachea midline - Respiratory Respiratory exam: Present: CTAB. Absent: rales, rhonchi, wheezes - Cardiovascular Cardiovascular exam: Present: +S1, +S2. Absent: JVD - GI/Abdominal GI/Abdominal exam: Present: soft. Absent: distended, guarding Additional comments: colostomy bag intact with stool present - Extremities Exam Extremities exam: Present: warm. Absent: calf tenderness Additional comments: lower extremity pulses intact bilaterally - Psychiatric Psychiatric exam: Absent: agitated Additional comments: awake and alert, thought content no congruent - Skin Skin exam: Present: dry, warm. Absent: cyanosis, erythema Internal Medicine: Result - Labs CBC & Chem 7: 05/06/18 05:26 05/06/18 05:26 Labs: Short CBC 05/06/18 Range/Units 05:26 WBC 9.1 (4.3-11.1) K/mcL Hgb 9.9 L (11.5-15.4) g/dL Hct 30.0 L (35.3-44.9) % Plt Count 450 H (140-400) K/mcL BMP 05/06/18 05:26 Sodium 140 Potassium 3.6 Chloride 111 H Carbon Dioxide 21 L BUN 22 Creatinine 1.30 H Glucose 92 Calcium 8.5 L - ABG Interpretation ABG results: PT/INR, D-dimer PT 14.2 Seconds (9.4-12.1) H 04/19/18 04:19 - VTE Documentation of Mechanical Device: Intermittent pneumatic compression device Consult Discharge Plan - Plan Additional Instructions: continue current medications for calm/agitation, and to keep pt comfortable and redirectable Referrals: Virgil Hernandez MD [Partnered Physician] - 05/24/18 10:00 am Albertina Huerta MD [Primary Care Provider] - <Sania Johnson - Last Filed: 05/06/18 19:16> Date of Encounter: 05/06/18 - Assessment and plan (1) Bowel obstruction Current Visit: Yes Status: Resolved Qualifiers: Intestinal obstruction type: other intestinal obstruction Intestinal obstruction extent: complete Qualified Code(s): K56.691 - Other complete intestinal obstruction (2) Hypokalemia Current Visit: Yes Status: Resolved (3) HTN (hypertension) Current Visit: Yes Status: Chronic Qualifiers: Hypertension type: essential hypertension Qualified Code(s): I10 - Essential (primary) hypertension (4) HLD (hyperlipidemia) Current Visit: Yes Status: Chronic Qualifiers: Hyperlipidemia type: mixed hyperlipidemia Qualified Code(s): E78.2 - Mixed hyperlipidemia (5) Hypothyroidism Current Visit: Yes Status: Chronic Qualifiers: Hypothyroidism type: acquired Qualified Code(s): E03.9 - Hypothyroidism, unspecified (6) DVT prophylaxis Current Visit: Yes Status: Acute (7) Dementia Current Visit: Yes Status: Chronic Qualifiers: Dementia type: unspecified type Dementia behavioral disturbance: with behavioral disturbance Qualified Code(s): F03.91 - Unspecified dementia with behavioral disturbance (8) Protein-calorie malnutrition, moderate Current Visit: Yes Status: Acute (9) Leukocytosis Current Visit: Yes Status: Resolved Qualifiers: Leukocytosis type: unspecified Qualified Code(s): D72.829 - Elevated white blood cell count, unspecified (10) Ileus following gastrointestinal surgery Current Visit: Yes Status: Resolved (11) Hypocalcemia Current Visit: Yes Status: Acute (12) Acute renal failure due to tubular necrosis Current Visit: Yes Status: Suspected (13) Altered mental status Current Visit: Yes Status: Acute Qualifiers: Altered mental status type: disorientation Qualified Code(s): R41.0 - Disorientation, unspecified (14) Anemia Current Visit: Yes Status: Acute Qualifiers: Anemia type: unspecified type Qualified Code(s): D64.9 - Anemia, unspecified - Time Spent With Patient Total time spent is greater than 50% in coordination of care (as documented) at patient's floor/unit and/or counseling patient: - Constitutional Vitals: Temp Pulse Resp BP Pulse Ox 98.0 F 98 15 127/68 98 05/06/18 14:22 05/06/18 14:22 05/06/18 14:22 05/06/18 14:22 05/06/18 14:22 Internal Medicine: Result - Labs CBC & Chem 7: 05/06/18 05:26 05/06/18 05:26 Labs: Short CBC 05/06/18 Range/Units 05:26 WBC 9.1 (4.3-11.1) K/mcL Hgb 9.9 L (11.5-15.4) g/dL Hct 30.0 L (35.3-44.9) % Plt Count 450 H (140-400) K/mcL BMP 05/06/18 05:26 Sodium 140 Potassium 3.6 Chloride 111 H Carbon Dioxide 21 L BUN 22 Creatinine 1.30 H Glucose 92 Calcium 8.5 L - ABG Interpretation ABG results: PT/INR, D-dimer PT 14.2 Seconds (9.4-12.1) H 04/19/18 04:19 - Attending Attestation I examined this patient and my medical decision-making was reviewed with the Resident Physician. I agree with the documented findings, disposition and treatment plan as described except to the extent set forth below.
[2018-05-06] MEDS: traZODone 50 MG TABLET PO SCH (21:31)
[2018-05-07] MEDS: *HR* Heparin 5,000 UNIT/ML VIAL SQ SCH ×2 (05:40→18:26)
[2018-05-07] MEDS: Insulin LISPRO 300 UNITS/3 ML VIAL SQ SCH ×3 (05:40→17:46)
[2018-05-07] MEDS: Famotidine 20 MG TABLET PO SCH (10:25)
[2018-05-07] MEDS: Cholecalciferol (D-3) 1,000 UNIT TABLET PO SCH (10:26)
[2018-05-07] MEDS: amLODIPine 5 MG TABLET PO SCH (10:26)
[2018-05-07] MEDS: Multivit/Ca/Min/Fe/FA 1 TAB TABLET PO SCH (10:26)
--- NOTE | 2018-05-07 18:11 | Internal Med Progress Note ---
Date of Encounter: 05/07/18 Time of Encounter: 18:09 - Assessment and plan (1) Bowel obstruction Current Visit: Yes Status: Resolved Assessment and plan: Resolved. Due to mass of sigmoid colon. S/p resection and colostomy. Continue pain management. Disposition:Patient will need placed to ECF/SNF/Swing, will be better suited to be sitter free for >24 hours. Today she may not be able to be sitter-free. Tomorrow will re assess. Medically she is stable. Qualifiers: Intestinal obstruction type: other intestinal obstruction Intestinal obstruction extent: complete Qualified Code(s): K56.691 - Other complete intestinal obstruction (2) Hypokalemia Current Visit: Yes Status: Resolved Assessment and plan: Resolved, but will continue to monitor. (3) HTN (hypertension) Current Visit: Yes Status: Chronic Assessment and plan: Resolved. Has history of chronic hypertension. Continue amlodopine, hydralazine and tamsulosin Qualifiers: Hypertension type: essential hypertension Qualified Code(s): I10 - Essential (primary) hypertension (4) HLD (hyperlipidemia) Current Visit: Yes Status: Chronic Assessment and plan: Refused Zocor at admission. May not be beneficial with her age, risk vs. benefit. May consider addressing this after her altered mental status resolves Qualifiers: Hyperlipidemia type: mixed hyperlipidemia Qualified Code(s): E78.2 - Mixed hyperlipidemia (5) Hypothyroidism Current Visit: Yes Status: Chronic Assessment and plan: Continue levothyroxine. Qualifiers: Hypothyroidism type: acquired Qualified Code(s): E03.9 - Hypothyroidism, unspecified (6) DVT prophylaxis Current Visit: Yes Status: Acute Assessment and plan: Continue Heparin SubQ (7) Dementia Current Visit: Yes Status: Chronic Assessment and plan: Continue trazadone and donepezil. Decrease night time disturbance. Try to reorient Ms. Stinson when she is confused. Qualifiers: Dementia type: unspecified type Dementia behavioral disturbance: with behavioral disturbance Qualified Code(s): F03.91 - Unspecified dementia with behavioral disturbance (8) Protein-calorie malnutrition, moderate Current Visit: Yes Status: Acute Assessment and plan: Eating a small portion of her meal. Prefers only chocolate pudding. Dietary suggested: soft diet with chopped meat suggested by dietary. Consider providing Ms. Stinson with her preferred meals to increase her caloric intake. (9) Leukocytosis Current Visit: Yes Status: Resolved Assessment and plan: Resolved. Was from unknown source. Her blood cultures have been negative. Incision site is clean and intact. Zosyn stopped 05/04/18. WBC decreased and returned to normal limits today. Qualifiers: Leukocytosis type: unspecified Qualified Code(s): D72.829 - Elevated white blood cell count, unspecified (10) Ileus following gastrointestinal surgery Current Visit: Yes Status: Resolved Assessment and plan: Resolved. No further N/V and having good output per colostomy. Urging her to eat at chair. If she continues to not eat, will consider adding dietary supplement options. (11) Hypocalcemia Current Visit: Yes Status: Acute Assessment and plan: Resolving, likely secondary to malnutrition. Progress diet (12) Acute renal failure due to tubular necrosis Current Visit: Yes Status: Suspected Assessment and plan: Creatinine 1.30 today, improved from 1.48 yesterday. Continues to be high for the past 7 days, possibly pre-renal due to dehydration. Ultrasound neg for obstruction. Please continue bladder scan if urinary retention. Avoid nephrotoxins. (13) Altered mental status Current Visit: Yes Status: Acute Assessment and plan: Waxing and waning. Unknown cause, possibly due to disturbance in her sleep cycle. Or it could be infection, pain or due to change of environment. This morning she is awake, alert, talking and responding to stimuli although her thought content is not congruent. Continue to decrease night time disturbance. Qualifiers: Altered mental status type: disorientation Qualified Code(s): R41.0 - Disorientation, unspecified (14) Anemia Current Visit: Yes Status: Acute Assessment and plan: Anemia ongoing since 04/20/18. Suspected due to operative blood loss. Because her nutrition has not been great, it is likely due to procedural blood loss and culmination of decreased diet. Does not seem to be an acute process as hemoglobin has been stable. There is no evidence of blood loss, colostomy bag has greenish stool. Also, penicillin and its derivatives can cause anemia and she was on a penicillin for 11 days. The medication was stopped two days ago. Her hemoglobin remains stable at this time and with increased in diet it should improve. Will continue to monitor. Qualifiers: Anemia type: unspecified type Qualified Code(s): D64.9 - Anemia, unspecified - Time Spent With Patient Total time spent is greater than 50% in coordination of care (as documented) at patient's floor/unit and/or counseling patient: - Subjective Interval history: No acute events. Sitter and nursing report that she is behaved more appropraite today. Does not show any agitation. She has been eating a little bit more food. Kirt at bedside was giving her food earlier in day. She denies any pain. - Constitutional Vitals: Temp Pulse Resp BP Pulse Ox 98.6 F 99 16 113/67 97 05/07/18 16:00 05/07/18 16:00 05/07/18 16:00 05/07/18 16:00 05/07/18 16:00 General appearance: Present: A&O X 1, no acute distress. Absent: answers questions appropriately Exam: - Head Head exam: Present: atraumatic - Eye Eye exam: Present: EOMI, sclera anicteric - ENT ENT exam: Present: mucous membranes moist - Neck Neck exam general surgery: Present: full ROM, trachea midline - Respiratory Respiratory exam: Present: CTAB. Absent: accessory muscle use, rales, rhonchi, wheezes - Cardiovascular Cardiovascular exam: Present: +S1, +S2. Absent: JVD - GI/Abdominal GI/Abdominal exam: Present: soft. Absent: tenderness (colostomy bad intact) - Extremities Exam Extremities exam: Present: full ROM, warm. Absent: calf tenderness - Psychiatric Psychiatric exam: Present: normal affect. Absent: anxious - Skin Skin exam: Present: dry, warm. Absent: rash Internal Medicine: Result - Labs CBC & Chem 7: 05/06/18 05:26 05/06/18 05:26 - ABG Interpretation ABG results: PT/INR, D-dimer PT 14.2 Seconds (9.4-12.1) H 04/19/18 04:19 - VTE Documentation of Mechanical Device: Intermittent pneumatic compression device Consult Discharge Plan - Plan Additional Instructions: continue current medications for calm/agitation, and to keep pt comfortable and redirectable Referrals: Virgil Hernandez MD [Partnered Physician] - 05/24/18 10:00 am Albertina Huerta MD [Primary Care Provider] -
[2018-05-07] MEDS: traZODone 50 MG TABLET PO SCH (22:22)
[2018-05-08] MEDS: Insulin LISPRO 300 UNITS/3 ML VIAL SQ SCH ×4 (00:59→18:29)
[2018-05-08] MEDS: *HR* Heparin 5,000 UNIT/ML VIAL SQ SCH ×2 (06:15→18:28)
[2018-05-08] MEDS: Cholecalciferol (D-3) 1,000 UNIT TABLET PO SCH (09:18)
[2018-05-08] MEDS: Famotidine 20 MG TABLET PO SCH (09:18)
[2018-05-08] MEDS: Multivit/Ca/Min/Fe/FA 1 TAB TABLET PO SCH (09:18)
[2018-05-08] MEDS: amLODIPine 5 MG TABLET PO SCH (09:24)
--- NOTE | 2018-05-08 14:27 | Internal Med Progress Note ---
Date of Encounter: 05/08/18 Time of Encounter: 14:24 - Assessment and plan (1) Bowel obstruction Current Visit: Yes Status: Resolved Assessment and plan: Resolved. Due to mass of sigmoid colon. S/p resection and colostomy. Continue pain management. Disposition: - Patient will need placed to ECF/SNF/Swing, will be better suited to be sitter free for >24 hours. - She still needs a sitter as occasionally she gets up and wanders around but is not safe to do so, high fall risk as well and is very week. - Continue PT/OT Qualifiers: Intestinal obstruction type: other intestinal obstruction Intestinal obstruction extent: complete Qualified Code(s): K56.691 - Other complete intestinal obstruction (2) Hypokalemia Current Visit: Yes Status: Resolved Assessment and plan: Resolved, but will continue to monitor. (3) HTN (hypertension) Current Visit: Yes Status: Chronic Assessment and plan: Resolved. Has history of chronic hypertension. Continue amlodopine, hydralazine and tamsulosin Qualifiers: Hypertension type: essential hypertension Qualified Code(s): I10 - Essential (primary) hypertension (4) HLD (hyperlipidemia) Current Visit: Yes Status: Chronic Assessment and plan: Refused Zocor at admission. May not be beneficial with her age, risk vs. benefit. May consider addressing this after her altered mental status resolves Qualifiers: Hyperlipidemia type: mixed hyperlipidemia Qualified Code(s): E78.2 - Mixed hyperlipidemia (5) Hypothyroidism Current Visit: Yes Status: Chronic Qualifiers: Hypothyroidism type: acquired Qualified Code(s): E03.9 - Hypothyroidism, unspecified (6) DVT prophylaxis Current Visit: Yes Status: Acute Assessment and plan: Continue Heparin SubQ (7) Dementia Current Visit: Yes Status: Chronic Assessment and plan: Continue trazadone and donepezil. Decrease night time disturbance. Try to reorient Ms. Stinson when she is confused. Qualifiers: Dementia type: unspecified type Dementia behavioral disturbance: with behavioral disturbance Qualified Code(s): F03.91 - Unspecified dementia with behavioral disturbance (8) Protein-calorie malnutrition, moderate Current Visit: Yes Status: Acute Assessment and plan: Eating a small portion of her meal. Prefers only chocolate pudding. Dietary suggested: soft diet with chopped meat suggested by dietary. Consider providing Ms. [place] with her preferred meals to increase her caloric intake. (9) Leukocytosis Current Visit: Yes Status: Resolved Assessment and plan: Resolved. Was from unknown source. Her blood cultures have been negative. Incision site is clean and intact. Zosyn stopped 05/04/18. WBC decreased and returned to normal limits today. Qualifiers: Leukocytosis type: unspecified Qualified Code(s): D72.829 - Elevated white blood cell count, unspecified (10) Ileus following gastrointestinal surgery Current Visit: Yes Status: Resolved Assessment and plan: Resolved. No further N/V and having good output per colostomy. Urging her to eat at chair. If she continues to not eat, will consider adding dietary supplement options. (11) Hypocalcemia Current Visit: Yes Status: Acute Assessment and plan: Resolving, likely secondary to malnutrition. Progress diet (12) Acute renal failure due to tubular necrosis Current Visit: Yes Status: Suspected Assessment and plan: Creatinine 1.30 today, improved from 1.48 yesterday. Continues to be high for the past 7 days, possibly pre-renal due to dehydration. Ultrasound neg for obstruction. Please continue bladder scan if urinary retention. Avoid nephrotoxins. (13) Altered mental status Current Visit: Yes Status: Acute Assessment and plan: Waxing and waning. Unknown cause, possibly due to disturbance in her sleep cycle. Or it could be infection, pain or due to change of environment. This morning she is awake, alert, talking and responding to stimuli although her thought content is not congruent. Continue to decrease night time disturbance. Qualifiers: Altered mental status type: disorientation Qualified Code(s): R41.0 - Disorientation, unspecified (14) Anemia Current Visit: Yes Status: Acute Assessment and plan: Anemia ongoing since 04/20/18. Suspected due to operative blood loss. Because her nutrition has not been great, it is likely due to procedural blood loss and culmination of decreased diet. Does not seem to be an acute process as hemoglobin has been stable. There is no evidence of blood loss, colostomy bag has greenish stool. Also, penicillin and its derivatives can cause anemia and she was on a penicillin for 11 days. The medication was stopped two days ago. Her hemoglobin remains stable at this time and with increased in diet it should improve. Will continue to monitor. Qualifiers: Anemia type: unspecified type Qualified Code(s): D64.9 - Anemia, unspecified - Time Spent With Patient Total time spent is greater than 50% in coordination of care (as documented) at patient's floor/unit and/or counseling patient: - Subjective Interval history: No acute events. Daughters at bedside Sitter and nursing report that she is behaved more appropriate today. Does not show any agitation. Not as much appetite today as compared to yesterday - Constitutional Vitals: Temp Pulse Resp BP Pulse Ox 98.2 F 92 16 91/58 94 05/08/18 09:32 05/08/18 09:32 05/08/18 09:32 05/08/18 09:32 05/08/18 09:32 General appearance: Present: A&O X 1, no acute distress. Absent: answers questions appropriately Exam: Gen: NAD, AAOx1 CVS: RRR Abd: NT/ND, colostomy in place Ext: no edema Internal Medicine: Result - Labs CBC & Chem 7: 05/06/18 05:26 05/06/18 05:26 - ABG Interpretation ABG results: PT/INR, D-dimer PT 14.2 Seconds (9.4-12.1) H 04/19/18 04:19 - VTE Documentation of Mechanical Device: Intermittent pneumatic compression device Consult Discharge Plan - Plan Additional Instructions: continue current medications for calm/agitation, and to keep pt comfortable and redirectable Referrals: Virgil Hernandez MD [Partnered Physician] - 05/24/18 10:00 am Albertina Huerta MD [Primary Care Provider] -
[2018-05-08] MEDS: traZODone 50 MG TABLET PO SCH (19:57)
[2018-05-08] MEDS ORDERED: *HR* LORazepam 2 MG/ML VIAL IVP ONE (21:53)
[2018-05-09] MEDS: Insulin LISPRO 300 UNITS/3 ML VIAL SQ SCH ×4 (01:18→17:26)
[2018-05-09 03:04] LABS: Bilirubin,Urine Negative (Negative); Blood,Urine Negative (Negative); Clarity,Urine Cloudy (Clear); Color,Urine Yellow (Yellow); Glucose,Urine (UA) Normal (Normal); Ketones,Urine Negative (Negative); Leukocyte Esterase,Urine Moderate (Negative); Nitrite,Urine Negative (Negative); Protein,Urine 30 mg/dL (Neg-Trace); Specific Gravity,Urine 1.021 (1.010-1.025); Urobilinogen,Urine Normal (Normal)
[2018-05-09 03:05] LABS: Bacteria,Urine None Seen per hpf (None-Few); Hyaline Casts,Urine Moderate per lpf (None-Few); Squamous Epithelial Cell,Urine Many per lpf (None-Few); WBC,Urine 30-50 per hpf (0-3)
[2018-05-09 03:15] LABS: Yeast,Urine Many per hpf (None Seen)
[2018-05-09] MEDS: *HR* LORazepam Oral Conc 2 MG/ML SL PRN ×2 (06:15→14:06)
[2018-05-09] MEDS: *HR* Heparin 5,000 UNIT/ML VIAL SQ SCH ×2 (06:20→17:12)
[2018-05-09] MEDS: amLODIPine 5 MG TABLET PO SCH (07:42)
[2018-05-09] MEDS: Cholecalciferol (D-3) 1,000 UNIT TABLET PO SCH (07:43)
[2018-05-09] MEDS: Famotidine 20 MG TABLET PO SCH (07:43)
[2018-05-09] MEDS: Multivit/Ca/Min/Fe/FA 1 TAB TABLET PO SCH (07:43)
--- NOTE | 2018-05-09 14:58 | Internal Med Progress Note ---
<Kimberley Mccartney - Last Filed: 05/09/18 17:58> Date of Encounter: 05/09/18 Time of Encounter: 03:00 - Assessment and plan (1) Altered mental status Current Visit: Yes Status: Acute Assessment and plan: Waxing and waning. Unknown cause, possibly due to disturbance in her sleep cycle. Or it could be due to change in her environment. This morning she is awake, alert, talking and responding to stimuli although her thought content is not congruent. Continue to decrease night time disturbance. Reorient her when she is confused. Qualifiers: Altered mental status type: disorientation Qualified Code(s): R41.0 - Disorientation, unspecified (2) Bowel obstruction Current Visit: Yes Status: Resolved Assessment and plan: Resolved. Due to mass of sigmoid colon. S/p resection and colostomy. Continue pain management. Disposition: - Patient will need placed to ECF/SNF/Swing, will be better suited to be sitter free for >24 hours. - She still needs a sitter as occasionally she gets up and walks around and is not steady or safe to do so without assistance. - High fall risk as well and is very week. - Continue PT/OT Qualifiers: Intestinal obstruction type: other intestinal obstruction Intestinal obstruction extent: complete Qualified Code(s): K56.691 - Other complete intestinal obstruction (3) Leukocytosis Current Visit: Yes Status: Resolved Assessment and plan: Resolved. Was from unknown source. Her blood cultures have been negative. Incision site is clean and intact. Zosyn stopped 05/04/18. WBC decreased and returned to normal limits 05/06/18. Qualifiers: Leukocytosis type: unspecified Qualified Code(s): D72.829 - Elevated white blood cell count, unspecified (4) Acute renal failure due to tubular necrosis Current Visit: Yes Status: Suspected Assessment and plan: Resolved elevated creatinine. Last reading on 05/06/18 was 1.30. Elevated creatinine could be attributed to pre-renal cause due to dehydration. Ultrasound negative for obstruction. She is now voiding at bedside commode. Encourage use of the bedside commode. Please continue bladder scan if urinary retention. Avoid nephrotoxins. (5) Protein-calorie malnutrition, moderate Current Visit: Yes Status: Acute (6) Ileus following gastrointestinal surgery Current Visit: Yes Status: Resolved (7) Hypokalemia Current Visit: Yes Status: Resolved Assessment and plan: Resolved, but will continue to monitor. (8) HTN (hypertension) Current Visit: Yes Status: Chronic Assessment and plan: Resolved. Has history of chronic hypertension. His blood pressure this morning was 110/78. Continue amlodopine, hydralazine and tamsulosin Qualifiers: Hypertension type: essential hypertension Qualified Code(s): I10 - Essential (primary) hypertension (9) HLD (hyperlipidemia) Current Visit: Yes Status: Chronic Assessment and plan: Refused Zocor at admission. May not be beneficial with her age, risk vs. benefit. May consider addressing this after her altered mental status resolves Qualifiers: Hyperlipidemia type: mixed hyperlipidemia Qualified Code(s): E78.2 - Mixed hyperlipidemia (10) Hypothyroidism Current Visit: Yes Status: Chronic Assessment and plan: Continue levothyroxine. Qualifiers: Hypothyroidism type: acquired Qualified Code(s): E03.9 - Hypothyroidism, unspecified (11) Dementia Current Visit: Yes Status: Chronic Assessment and plan: Continue trazadone and donepezil. Decrease night time disturbance. Try to reorient Ms. Stinson when she is confused. Qualifiers: Dementia type: unspecified type Dementia behavioral disturbance: with behavioral disturbance Qualified Code(s): F03.91 - Unspecified dementia with behavioral disturbance (12) Hypocalcemia Current Visit: Yes Status: Acute Assessment and plan: Resolving, likely secondary to malnutrition. Progress diet. (13) DVT prophylaxis Current Visit: Yes Status: Acute (14) Anemia Current Visit: Yes Status: Acute Assessment and plan: Anemia ongoing since 04/20/18. Suspected due to operative blood loss. Because her nutrition has not been great, it is likely due to procedural blood loss and culmination of decreased diet. Does not seem to be an acute process as hemoglobin has been stable. There is no evidence of blood loss, colostomy bag has light brown stool. Also, penicillin and its derivatives can cause anemia and she was on a penicillin for 11 days. The medication was stopped 5 days ago. Her hemoglobin remains stable at this time and with increased in diet it should improve. Will continue to monitor. Qualifiers: Anemia type: unspecified type Qualified Code(s): D64.9 - Anemia, unspecified - Time Spent With Patient Total time spent is greater than 50% in coordination of care (as documented) at patient's floor/unit and/or counseling patient: - Subjective Interval history: Ms. Stinson is a 78 year old female who was seen at bedside today. She is 20 days status post rectosigmoidecty and colostomy. This morning she is awake and alert. She is responding to her name. She is also talking but without congruent thought content. Her nutrition intake is not significant but she is being urged to eat. Because of her mentation and confusion she is not a good candidate for PEG as she may remove it with force. She is improving and may benefit from ensure or other dietary supplements. - Constitutional Vitals: Temp Pulse Resp BP Pulse Ox 98.0 F 71 16 110/78 97 05/09/18 09:24 05/09/18 09:24 05/09/18 09:24 05/09/18 09:24 05/09/18 09:24 General appearance: Present: A&O X 1, no acute distress. Absent: answers questions appropriately - Head Head exam: Present: atraumatic, normocephalic - Eye Eye exam: Present: EOMI, sclera anicteric - ENT ENT exam: Present: mucous membranes moist - Respiratory Respiratory exam: Present: CTAB. Absent: chest wall tenderness, rales, rhonchi , wheezes - Cardiovascular Cardiovascular exam: Present: +S1, +S2. Absent: JVD - GI/Abdominal GI/Abdominal exam: Present: soft. Absent: distended, tenderness (colostomy bag intact, incision site clean and healing) - Extremities Exam Extremities exam: Present: warm. Absent: calf tenderness, pedal edema, tenderness - Psychiatric Additional comments: Thought content not congruent, removed her clothing, yelling at the personal care worker, refusing to eat breakfast - Skin Additional comments: abdominal incision site clean Internal Medicine: Result - Labs CBC & Chem 7: 05/06/18 05:26 05/06/18 05:26 Labs: Urine 05/09/18 Range/Units 02:44 Urine Color Yellow (Yellow) Urine Clarity Cloudy A (Clear) Urine pH 7.0 (5.0-8.0) pH Units Ur Specific [place] 1.021 (1.010-1.025) Urine Protein 30 H (Neg-Trace) mg/dL Urine Glucose (UA) Normal (Normal) mg/dL - ABG Interpretation ABG results: PT/INR, D-dimer PT 14.2 Seconds (9.4-12.1) H 04/19/18 04:19 - VTE Documentation of Mechanical Device: Intermittent pneumatic compression device Consult Discharge Plan - Plan Additional Instructions: continue current medications for calm/agitation, and to keep pt comfortable and redirectable Referrals: Virgil Hernandez MD [Partnered Physician] - 05/24/18 10:00 am Albertina Huerta MD [Primary Care Provider] - <Sania Johnson - Last Filed: 05/09/18 18:07> Date of Encounter: 05/09/18 - Assessment and plan (1) Bowel obstruction Current Visit: Yes Status: Resolved Qualifiers: Intestinal obstruction type: other intestinal obstruction Intestinal obstruction extent: complete Qualified Code(s): K56.691 - Other complete intestinal obstruction (2) Hypokalemia Current Visit: Yes Status: Resolved (3) HTN (hypertension) Current Visit: Yes Status: Chronic Qualifiers: Hypertension type: essential hypertension Qualified Code(s): I10 - Essential (primary) hypertension (4) HLD (hyperlipidemia) Current Visit: Yes Status: Chronic Qualifiers: Hyperlipidemia type: mixed hyperlipidemia Qualified Code(s): E78.2 - Mixed hyperlipidemia (5) Hypothyroidism Current Visit: Yes Status: Chronic Qualifiers: Hypothyroidism type: acquired Qualified Code(s): E03.9 - Hypothyroidism, unspecified (6) DVT prophylaxis Current Visit: Yes Status: Acute (7) Dementia Current Visit: Yes Status: Chronic Qualifiers: Dementia type: unspecified type Dementia behavioral disturbance: with behavioral disturbance Qualified Code(s): F03.91 - Unspecified dementia with behavioral disturbance (8) Protein-calorie malnutrition, moderate Current Visit: Yes Status: Acute (9) Leukocytosis Current Visit: Yes Status: Resolved Qualifiers: Leukocytosis type: unspecified Qualified Code(s): D72.829 - Elevated white blood cell count, unspecified (10) Ileus following gastrointestinal surgery Current Visit: Yes Status: Resolved (11) Hypocalcemia Current Visit: Yes Status: Acute (12) Acute renal failure due to tubular necrosis Current Visit: Yes Status: Suspected (13) Altered mental status Current Visit: Yes Status: Acute Qualifiers: Altered mental status type: disorientation Qualified Code(s): R41.0 - Disorientation, unspecified (14) Anemia Current Visit: Yes Status: Acute Qualifiers: Anemia type: unspecified type Qualified Code(s): D64.9 - Anemia, unspecified - Time Spent With Patient Total time spent is greater than 50% in coordination of care (as documented) at patient's floor/unit and/or counseling patient: - Constitutional Vitals: Temp Pulse Resp BP Pulse Ox 98.0 F 71 16 110/78 97 05/09/18 09:24 05/09/18 09:24 05/09/18 09:24 05/09/18 09:24 05/09/18 09:24 Internal Medicine: Result - Labs CBC & Chem 7: 05/06/18 05:26 05/06/18 05:26 Labs: Urine 05/09/18 Range/Units 02:44 Urine Color Yellow (Yellow) Urine Clarity Cloudy A (Clear) Urine pH 7.0 (5.0-8.0) pH Units Ur Specific [place] 1.021 (1.010-1.025) Urine Protein 30 H (Neg-Trace) mg/dL Urine Glucose (UA) Normal (Normal) mg/dL - ABG Interpretation ABG results: PT/INR, D-dimer PT 14.2 Seconds (9.4-12.1) H 04/19/18 04:19 - Attending Attestation I examined this patient and my medical decision-making was reviewed with the Resident Physician. I agree with the documented findings, disposition and treatment plan as described except to the extent set forth below.
--- NOTE | 2018-05-09 15:11 | Infectious Disease Progress No ---
Date of Encounter: 05/09/18 Time of Encounter: 15:07 - Assessment and Plan (1) Sepsis Status: Acute The patient had three SIRS criteria (tachycardia, leukocytosis, and fever). Etiology unclear: intra-abdominal (peritonitis) vs. pulmonary (pneumonia) vs. non-infectious. The patient did have some spillage of bowel contents into the abdomen intra-op, but CT negative for abscess or fluid collection. WBC trending down, but had low-grade fever overnight and tachycardia persists. Blood culture drawn 04/22/18 is negative x 1 set. Repeat blood culture drawn 04/24/18 is negative x 1 set. Repeat blood cultures drawn 04/25/18 are negative x 2 sets. Additional blood cultures drawn 04/27/18 are negative x 2 sets. Repeat blood cultures drawn 05/03/18 are NGTD x 2 sets. The patient's mental status makes it very difficult to obtain ROS information from her. CT of the abdomen and pelvis showed findings consistent with ileus and some ascites, but no other acute intra-abdominal process. It did show adjacent consolidation at the lung bases. CT chest shows bilateral upper lobe nodular opacities, concerning for infectious process. Urinalysis negative. Culture grew out only yeast. The patient does have a PICC line, but clinically does not appear infected. Surgical incision looks great. Check procalcitonin. --> mildly elevated at 0.16. Check peripheral smear. --> reveals reactive leukocytosis Amylase and lipase elevated, but abdominal exam benign and CT negative for pancreatitis. Repeat CXR showed bibasilar atelectasis and small pleural effusions. No PNA. The patient does not appear to have any URI symptoms. S. pneumo and Legionella UATs negative. Vancomycin stopped due to lack of MRSA on cultures and worsening GEORGI. Micafungin discontinued. Zosyn discontinued after 11 day course. Continue to monitor off antibiotics. No further recommendations from the ID team. Will sign off. Please re-consult if needed. Qualifiers: Sepsis type: sepsis due to unspecified organism Qualified Code(s): A41.9 - Sepsis, unspecified organism (2) Leukocytosis Status: Resolved Etiology unclear. Neutrophilic predominance. WBC normalized this morning. Workup as above. Continue to trend. Qualifiers: Leukocytosis type: unspecified Qualified Code(s): D72.829 - Elevated white blood cell count, unspecified (3) Abnormal CT scan, chest Status: Acute CT of the chest completed 04/27/18 shows moderate bilateral pleural effusions with bibasilar lung opacities likely representing atelectasis. It also shows upper lobe sub-solid nodular opacities that are suspected to be infectious. Recommend pulmonary to evaluate. Repeat CXR negative for PNA. (4) Encephalopathy Status: Acute Etiology unclear, but likely multifactorial: sepsis + anesthesia + pain medication +/- other. Appears improved. Continue to monitor closely. (5) Ileus following gastrointestinal surgery Status: Resolved CT of the abdomen and pelvis completed 04/27/18 showed findings consistent with post-op ileus. Resolved. Management per the surgery team. (6) Mass of colon Status: Resolved CT of the abdomen and pelvis completed 04/18/18 showed a suspicious infiltrating mass of the colon with obstruction. Transferred to [facility]. Surgery consulted and following. 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 Operative note reviewed. Pathology negative for malignancy, but did show acute on chronic diverticulosis with abscess and giant cell formation. Post-op care per the general surgery team. (7) Bowel obstruction Status: Resolved Secondary to colonic mass. Resolved. Qualifiers: Intestinal obstruction type: other intestinal obstruction Intestinal obstruction extent: complete Qualified Code(s): K56.691 - Other complete intestinal obstruction (8) Hypokalemia Status: Resolved Replacement per the primary team. (9) HTN (hypertension) Status: Chronic Qualifiers: Hypertension type: essential hypertension Qualified Code(s): I10 - Essential (primary) hypertension (10) HLD (hyperlipidemia) Status: Chronic Qualifiers: Hyperlipidemia type: mixed hyperlipidemia Qualified Code(s): E78.2 - Mixed hyperlipidemia (11) Hypothyroidism Status: Chronic Qualifiers: Hypothyroidism type: acquired Qualified Code(s): E03.9 - Hypothyroidism, unspecified (12) Dementia Status: Chronic Qualifiers: Dementia type: unspecified type Dementia behavioral disturbance: with behavioral disturbance Qualified Code(s): F03.91 - Unspecified dementia with behavioral disturbance (13) GEORGI (acute kidney injury) Status: Acute Etiology not clear. Likely multifactorial. Improved. Monitor kidney function closely. Continue to trend. (14) Superficial venous thrombosis of right arm Status: Acute Venous doppler study shows SVT in the right basilic and right cephalic veins. Supportive care. Anticoagulation per the primary team. - Subjective Interval history: Patient seen and examined. No acute events noted overnight. Patient remains confused and restless. Unable to provide ROS information this morning, but denies pain. Restraints have been removed. Antibiotics discontinued 05/05/18. Per the patient's family, they are working to get her discharged to ECF soon. Infect Dis PN-Objective Data - Labs CBC & Chem 7: 05/06/18 05:26 05/06/18 05:26 Labs: Laboratory Results - last 24 hr 05/05/18 05/08/18 05/08/18 03:19 10:57 17:06 POC Glucose 114 H 112 H Whole Bld Vitamin B1 162 Urine Color Urine Clarity Urine pH Ur Specific [place] Urine Protein Urine Glucose (UA) Urine Ketones Urine Blood Urine Nitrite Urine Bilirubin Urine Urobilinogen Ur Leukocyte Esterase Urine Microscopic RBC Urine Microscopic WBC Ur Squamous Epith Cells Urine Bacteria Hyaline Casts Urine Yeast Ur Culture Indicated? 05/08/18 05/09/18 05/09/18 23:44 02:44 05:34 POC Glucose 116 H 101 H Whole Bld Vitamin B1 Urine Color Yellow Urine Clarity Cloudy A Urine pH 7.0 Ur Specific [place] 1.021 Urine Protein 30 H Urine Glucose (UA) Normal Urine Ketones Negative Urine Blood Negative Urine Nitrite Negative Urine Bilirubin Negative Urine Urobilinogen Normal Ur Leukocyte Esterase Moderate H Urine Microscopic RBC Test Not Performed Urine Microscopic WBC 30-50 H Ur Squamous Epith Cells Many H Urine Bacteria None Seen Hyaline Casts Moderate H Urine Yeast Many H Ur Culture Indicated? NO. A 05/09/18 07:59 POC Glucose 89 Whole Bld Vitamin B1 Urine Color Urine Clarity Urine pH Ur Specific [place] Urine Protein Urine Glucose (UA) Urine Ketones Urine Blood Urine Nitrite Urine Bilirubin Urine Urobilinogen Ur Leukocyte Esterase Urine Microscopic RBC Urine Microscopic WBC Ur Squamous Epith Cells Urine Bacteria Hyaline Casts Urine Yeast Ur Culture Indicated? Cultures: Cultures 05/03/18 12:48 Blood Culture - Final Peripheral Venipuncture No growth. Final report. 05/03/18 12:50 Blood Culture - Final Peripheral Venipuncture No growth. Final report. 04/27/18 16:10 Blood Culture - Final Peripheral Venipuncture No growth. Final report. 04/27/18 16:10 Blood Culture - Final Peripheral Venipuncture No growth. Final report. 04/27/18 10:25 Urine Culture - Final Urine,Catheterized Beatris albicans 04/25/18 07:55 Blood Culture - Final Peripheral Venipuncture No growth. Final report. 04/25/18 07:57 Blood Culture - Final Peripheral Venipuncture No growth. Final report. 04/24/18 05:27 Blood Culture - Final Peripheral Venipuncture No growth. Final report. 04/27/18 10:29 Legionella Antigen - Final Urine,[place] Streptococcus pneumoniae Antigen (M - Final 04/22/18 08:24 Blood Culture - Final Peripheral Venipuncture No growth. Final report. Serology 05/09/18 04/28/18 04/27/18 Range/Units 02:44 14:15 10:35 Urine Color Yellow Dark Yellow (Yellow) Urine Clarity Cloudy A Cloudy A (Clear) Urine pH 7.0 6.0 (5.0-8.0) pH Units Ur Specific [place] 1.021 > 1.030 H (1.010-1.025) Urine Protein 30 H 100 H (Neg-Trace) mg/dL Urine Glucose (UA) Normal Normal (Normal) mg/dL Urine Ketones Negative Negative (Negative) mg/dL Urine Blood Negative Small H (Negative) Urine Nitrite Negative Negative (Negative) Urine Bilirubin Negative Negative (Negative) Urine Urobilinogen Normal Normal (Normal) mg/dL Ur Leukocyte Esterase Moderate H Small H (Negative) Urine Microscopic RBC Test Not Performed 3-5 H (0-3) per hpf Urine Microscopic WBC 30-50 H 50-100 H (0-3) per hpf Ur Squamous Epith Cells Many H Many H (None-Few) per lpf Urine Bacteria None Seen Many H (None-Few) per hpf Hyaline Casts Moderate H None Seen (None-Few) per lpf Urine Yeast Many H Many H (None Seen) per hpf Ur Culture Indicated? NO. A (NO) Chlamy pneumoniae PCR Not Detected (Not Detect) Adenovirus (PCR) Not Detected (Not Detect) B. pertussis DNA (PCR) Not Detected (Not Detect) B.parapertussis DNA PCR Not Detected (Not Detect) Coronavirus OC43 (PCR) Not Detected (Not Detect) Coronavirus HKU1 (PCR) Not Detected (Not Detect) Coronavirus 229E (PCR) Not Detected (Not Detect) Coronavirus NL63 (PCR) Not Detected (Not Detect) Human Metapneumovir PCR Not Detected (Not Detect) Influenza A (H1) PCR Not Detected (Not Detect) Influ A (H1N1/09) PCR Not Detected (Not Detect) Influenza A (H3) PCR Not Detected (Not Detect) Influenza A Untype (PCR) Not Detected (Not Detect) Influenza Type B (PCR) Not Detected (Not Detect) M.pneumoniae DNA (PCR) Not Detected (Not Detect) Parainfluenza 1 (PCR) Not Detected (Not Detect) Parainfluenza 2 (PCR) Not Detected (Not Detect) Parainfluenza 3 (PCR) Not Detected (Not Detect) Parainfluenza 4 (PCR) Not Detected (Not Detect) RSV (PCR) Not Detected (Not Detect) Entero/Rhino (PCR) Not Detected (Not Detect) 04/25/18 04/22/18 Range/Units 08:10 09:16 Urine Color Yellow Dark Yellow (Yellow) Urine Clarity Clear Clear (Clear) Urine pH 6.0 5.5 (5.0-8.0) pH Units Ur Specific [place] 1.019 > 1.030 H (1.010-1.025) Urine Protein Negative Trace (Neg-Trace) mg/dL Urine Glucose (UA) Normal Normal (Normal) mg/dL Urine Ketones Trace H 15 H (Negative) mg/dL Urine Blood Negative Negative (Negative) Urine Nitrite Negative Positive A (Negative) Urine Bilirubin Negative Negative (Negative) Urine Urobilinogen Normal Normal (Normal) mg/dL Ur Leukocyte Esterase Negative Trace H (Negative) Urine Microscopic RBC 5-15 H (0-3) per hpf Urine Microscopic WBC 0-3 (0-3) per hpf Ur Squamous Epith Cells Many H (None-Few) per lpf Urine Bacteria None Seen (None-Few) per hpf Hyaline Casts None Seen (None-Few) per lpf Urine Yeast (None Seen) per hpf Ur Culture Indicated? NO. A (NO) Chlamy pneumoniae PCR (Not Detect) Adenovirus (PCR) (Not Detect) B. pertussis DNA (PCR) (Not Detect) B.parapertussis DNA PCR (Not Detect) Coronavirus OC43 (PCR) (Not Detect) Coronavirus HKU1 (PCR) (Not Detect) Coronavirus 229E (PCR) (Not Detect) Coronavirus NL63 (PCR) (Not Detect) Human Metapneumovir PCR (Not Detect) Influenza A (H1) PCR (Not Detect) Influ A (H1N1/09) PCR (Not Detect) Influenza A (H3) PCR (Not Detect) Influenza A Untype (PCR) (Not Detect) Influenza Type B (PCR) (Not Detect) M.pneumoniae DNA (PCR) (Not Detect) Parainfluenza 1 (PCR) (Not Detect) Parainfluenza 2 (PCR) (Not Detect) Parainfluenza 3 (PCR) (Not Detect) Parainfluenza 4 (PCR) (Not Detect) RSV (PCR) (Not Detect) Entero/Rhino (PCR) (Not Detect) Exam - Constitutional Vitals: Temp Pulse Resp BP Pulse Ox 98.0 F 71 16 110/78 97 05/09/18 09:24 05/09/18 09:24 05/09/18 09:24 05/09/18 09:24 05/09/18 09:24 General appearance: average body habitus, cooperative, no acute distress - Head Head exam: Present: atraumatic, normal inspection, normocephalic - Eye Eye exam: Present: EOMI, normal appearance, PERRL Pupils: Present: normal accommodation - ENT ENT exam: Present: mucous membranes dry - Neck Neck exam: Present: normal inspection - Respiratory Respiratory exam: Present: CTAB. Absent: rales, respiratory distress, rhonchi, wheezes - Cardiovascular Cardiovascular exam: Present: RRR, +S1, +S2 - GI/Abdominal GI/Abdominal exam: Present: normal bowel sounds, soft. Absent: distended, tenderness Additional comments: Midline abdominal incision [employer] with wound edges well-approximated. No erythema, warmth, or edema. Colostomy noted to the Left side of the abdomen with collection bag intact. Liquid brown stool noted in bag. - Extremities Exam Extremities exam: Present: normal inspection. Absent: joint swelling, pedal edema, tenderness - Neurological Exam Neurological exam: Present: alert, no focal deficits (MAHMOOD x 4.). Absent: oriented X3 - Skin Skin exam: Present: dry, intact, normal color, warm - VTE Documentation of Mechanical Device: Intermittent pneumatic compression device Consult Discharge Plan - Plan Additional Instructions: continue current medications for calm/agitation, and to keep pt comfortable and redirectable Referrals: Virgil Hernandez MD [Partnered Physician] - 05/24/18 10:00 am Albertina Huerta MD [Primary Care Provider] - Prescriptions: HYDROcodone/Acet 5-217 mg/10mL [Lortab Elixir] 10 ml PO Q12H PRN 3 Days #60 ml PRN Reason: pain LORazepam Oral Conc [Ativan Oral Conc] 1 mg SL Q12H PRN 3 Days #6 mg PRN Reason: Agitation - Attending Attestation I examined this patient and my medical decision-making was reviewed with the Resident Physician. I agree with the documented findings, disposition and treatment plan as described except to the extent set forth below.
[2018-05-09] MEDS: traZODone 50 MG TABLET PO SCH (21:18)
[2018-05-10] MEDS: Insulin LISPRO 300 UNITS/3 ML VIAL SQ SCH ×3 (00:30→11:30)
[2018-05-10 05:00] VITALS: BP 117/59
[2018-05-10] MEDS: *HR* Heparin 5,000 UNIT/ML VIAL SQ SCH (05:38)
[2018-05-10] MEDS: amLODIPine 5 MG TABLET PO SCH (07:59)
[2018-05-10] MEDS: Famotidine 20 MG TABLET PO SCH (07:59)
[2018-05-10] MEDS: Cholecalciferol (D-3) 1,000 UNIT TABLET PO SCH (07:59)
[2018-05-10] MEDS: Multivit/Ca/Min/Fe/FA 1 TAB TABLET PO SCH (07:59)
--- NOTE | 2018-05-10 09:33 | Internal Med Progress Note ---
<Hang Mccartneya - Last Filed: 05/10/18 09:31> Date of Encounter: 05/10/18 Time of Encounter: 09:30 - Assessment and plan (1) Bowel obstruction Status: Resolved Assessment and plan: Resolved. Due to mass of sigmoid colon. S/p resection and colostomy. Disposition: - Patient will need placed to ECF/SNF/Swing, will be better suited to be sitter free for >24 hours. - She still needs a sitter as occasionally she gets up and walks around and is not steady or safe to do so without assistance. - High fall risk as well and is very week. - Continue PT/OT Qualifiers: Intestinal obstruction type: other intestinal obstruction Intestinal obstruction extent: complete Qualified Code(s): K56.691 - Other complete intestinal obstruction (2) Hypokalemia Status: Resolved Assessment and plan: Resolved, but will continue to monitor. (3) HTN (hypertension) Status: Chronic Assessment and plan: Resolved. Has history of chronic hypertension. His blood pressure this morning was 117/59. Continue amlodopine, hydralazine and tamsulosin Qualifiers: Hypertension type: essential hypertension Qualified Code(s): I10 - Essential (primary) hypertension (4) HLD (hyperlipidemia) Status: Chronic Assessment and plan: Refused Zocor at admission. May not be beneficial with her age, risk vs. benefit. May consider addressing this after her altered mental status resolves Qualifiers: Hyperlipidemia type: mixed hyperlipidemia Qualified Code(s): E78.2 - Mixed hyperlipidemia (5) Hypothyroidism Status: Chronic Assessment and plan: Continue levothyroxine. Qualifiers: Hypothyroidism type: acquired Qualified Code(s): E03.9 - Hypothyroidism, unspecified (6) Dementia Status: Chronic Assessment and plan: Continue trazadone and donepezil. Decrease night time disturbance. Try to reorient Ms. Stinson when she is confused. Qualifiers: Dementia type: unspecified type Dementia behavioral disturbance: with behavioral disturbance Qualified Code(s): F03.91 - Unspecified dementia with behavioral disturbance (7) Protein-calorie malnutrition, moderate Status: Acute Assessment and plan: Eating a small portion of her meal. Prefers only chocolate pudding and strawberry ensure which is ordered. Dietary suggested: soft diet with chopped meat but she does not eat it. Consider providing Ms. Stinson with her preferred meals to increase her caloric intake. (8) Leukocytosis Status: Resolved Assessment and plan: Resolved. Was from unknown source. Her blood cultures have been negative. Incision site is clean and intact. Zosyn stopped 05/04/18. WBC decreased and returned to normal limits 05/06/18. Qualifiers: Leukocytosis type: unspecified Qualified Code(s): D72.829 - Elevated white blood cell count, unspecified (9) Ileus following gastrointestinal surgery Status: Resolved Assessment and plan: Resolved. No further N/V and having good output per colostomy. Urging her to eat at chair. Dietary supplement ordered. (10) Hypocalcemia Status: Acute Assessment and plan: Resolving, likely secondary to malnutrition. Progress diet. (11) Acute renal failure due to tubular necrosis Status: Suspected Assessment and plan: Resolved, had elevated creatinine 04/29/18 to 05/05/18. Last reading on 05/06/18 was 1.30. Elevated creatinine could be attributed to pre-renal cause due to dehydration. Ultrasound negative for obstruction. She is now voiding at bedside commode. Encourage use of the bedside commode. Please continue bladder scan if urinary retention. Avoid nephrotoxins. (12) Altered mental status Status: Acute Assessment and plan: Waxing and waning. Unknown cause, possibly due to disturbance in her sleep cycle. She is not sleeping at night. Or it could be due to change in her environment. This morning she is awake, alert, talking and responding to stimuli although her thought content is not congruent. Continue to decrease night time disturbance. Reorient her when she is confused. Qualifiers: Altered mental status type: disorientation Qualified Code(s): R41.0 - Disorientation, unspecified (13) DVT prophylaxis Status: Acute Assessment and plan: Continue Heparin SubQ (14) Anemia Status: Acute Assessment and plan: Anemia ongoing since 04/20/18. Suspected due to operative blood loss. Because her nutrition has not been great, it is likely due to procedural blood loss and culmination of decreased diet. Does not seem to be an acute process as hemoglobin has been stable. There is no evidence of blood loss, colostomy bag has light brown stool. Also, penicillin and its derivatives can cause anemia and she was on a penicillin for 11 days. The medication was stopped 5 days ago. Her hemoglobin remains stable at this time and with increased in diet it should improve. Will continue to monitor. Qualifiers: Anemia type: unspecified type Qualified Code(s): D64.9 - Anemia, unspecified - Time Spent With Patient Total time spent is greater than 50% in coordination of care (as documented) at patient's floor/unit and/or counseling patient: - Subjective Interval history: Ms. Stinson is a 78 year old female who was seen at bedside today. She is 21 days status post rectosigmoidecty and colostomy. This morning she is awake and alert but is uncomfortable in bed. When asked is she wanted to sit in a chair she was agreeable and was moved to a chair. She is responding to her name and answer some questions. She denies any area of pain when asked. She is also talking but without congruent thought content. Her nutrition intake is not significant but she is being urged to eat and her favorite food items, including chocolate pudding and strawberry ensure is ordered. Because of her mentation and confusion she is not a good candidate for PEG as she may remove it with force. - Constitutional Vitals: Temp Pulse Resp BP Pulse Ox 98.8 F 118 20 117/59 97 05/10/18 05:00 05/10/18 05:00 05/10/18 05:00 05/10/18 05:00 05/10/18 05:00 General appearance: Present: A&O X 1, no acute distress. Absent: answers questions appropriately - Head Head exam: Present: atraumatic, normocephalic - Eye Eye exam: Present: EOMI, sclera anicteric - ENT ENT exam: Present: mucous membranes dry - Neck Neck exam general surgery: Present: full ROM, trachea midline - Respiratory Respiratory exam: Present: CTAB. Absent: rales, rhonchi, wheezes - Cardiovascular Cardiovascular exam: Present: +S1, +S2, tachycardia - GI/Abdominal GI/Abdominal exam: Present: soft. Absent: firm, tenderness Additional comments: colostomy bag intact - Extremities Exam Extremities exam: Absent: joint swelling, pedal edema, tenderness Additional comments: +2 bilateral lower extremity pulses - Incison Comments: abdominal incision intact and healing - Psychiatric Psychiatric exam: Present: agitated - Skin Skin exam: Present: dry, warm. Absent: erythema Internal Medicine: Result - Labs CBC & Chem 7: 05/06/18 05:26 05/06/18 05:26 - ABG Interpretation ABG results: PT/INR, D-dimer PT 14.2 Seconds (9.4-12.1) H 04/19/18 04:19 - VTE Documentation of Mechanical Device: Intermittent pneumatic compression device Consult Discharge Plan - Plan Additional Instructions: continue current medications for calm/agitation, and to keep pt comfortable and redirectable Referrals: Virgil Hernandez MD [Partnered Physician] - 05/24/18 10:00 am Albertina Huerta MD [Primary Care Provider] - Prescriptions: HYDROcodone/Acet 5-217 mg/10mL [Lortab Elixir] 10 ml PO Q12H PRN 3 Days #60 ml PRN Reason: pain LORazepam Oral Conc [Ativan Oral Conc] 1 mg SL Q12H PRN 3 Days #6 mg PRN Reason: Agitation <Sania Johnson - Last Filed: 05/11/18 00:26> Date of Encounter: 05/11/18 - Assessment and plan (1) Bowel obstruction Status: Resolved Qualifiers: Intestinal obstruction type: other intestinal obstruction Intestinal obstruction extent: complete Qualified Code(s): K56.691 - Other complete intestinal obstruction (2) Hypokalemia Status: Resolved (3) HTN (hypertension) Status: Chronic Qualifiers: Hypertension type: essential hypertension Qualified Code(s): I10 - Essential (primary) hypertension (4) HLD (hyperlipidemia) Status: Chronic Qualifiers: Hyperlipidemia type: mixed hyperlipidemia Qualified Code(s): E78.2 - Mixed hyperlipidemia (5) Hypothyroidism Status: Chronic Qualifiers: Hypothyroidism type: acquired Qualified Code(s): E03.9 - Hypothyroidism, unspecified (6) DVT prophylaxis Status: Acute (7) Dementia Status: Chronic Qualifiers: Dementia type: unspecified type Dementia behavioral disturbance: with behavioral disturbance Qualified Code(s): F03.91 - Unspecified dementia with behavioral disturbance (8) Protein-calorie malnutrition, moderate Status: Acute (9) Leukocytosis Status: Resolved Qualifiers: Leukocytosis type: unspecified Qualified Code(s): D72.829 - Elevated white blood cell count, unspecified (10) Ileus following gastrointestinal surgery Status: Resolved (11) Hypocalcemia Status: Acute (12) Acute renal failure due to tubular necrosis Status: Suspected (13) Altered mental status Status: Acute Qualifiers: Altered mental status type: disorientation Qualified Code(s): R41.0 - Disorientation, unspecified (14) Anemia Status: Acute Qualifiers: Anemia type: unspecified type Qualified Code(s): D64.9 - Anemia, unspecified - Time Spent With Patient Total time spent is greater than 50% in coordination of care (as documented) at patient's floor/unit and/or counseling patient: - Constitutional Vitals: Temp Pulse Resp BP Pulse Ox 98.8 F 118 20 117/59 97 05/10/18 05:00 05/10/18 05:00 05/10/18 05:00 05/10/18 05:00 05/10/18 05:00 Internal Medicine: Result - Labs CBC & Chem 7: 05/06/18 05:26 05/06/18 05:26 - ABG Interpretation ABG results: PT/INR, D-dimer PT 14.2 Seconds (9.4-12.1) H 04/19/18 04:19 - Attending Attestation I examined this patient and my medical decision-making was reviewed with the Resident Physician. I agree with the documented findings, disposition and treatment plan as described except to the extent set forth below.
--- NOTE | 2018-05-10 12:39 | Discharge Summary ---
- NOTES TO OUTPATIENT PROVIDER Notes to Outpatient Provider: Follow-up hydration and nutrition. Need to encourage sips and food, may need some medications changed to liquid. Repeat BMP in one week. Monitor glucose. Insulin discontinued. Consider sliding scale. Date of Encounter: 05/10/18 Time of Encounter: 12:39 - Discharge Diagnosis (1) Bowel obstruction Priority: Primary Status: Resolved Qualifiers: Intestinal obstruction type: other intestinal obstruction Intestinal obstruction extent: complete Qualified Code(s): K56.691 - Other complete intestinal obstruction (2) Altered mental status Priority: Secondary Status: Acute Qualifiers: Altered mental status type: disorientation Qualified Code(s): R41.0 - Disorientation, unspecified (3) Hypokalemia Priority: Secondary Status: Resolved (4) HTN (hypertension) Priority: Secondary Status: Chronic Qualifiers: Hypertension type: essential hypertension Qualified Code(s): I10 - Essential (primary) hypertension (5) HLD (hyperlipidemia) Priority: Secondary Status: Chronic Qualifiers: Hyperlipidemia type: mixed hyperlipidemia Qualified Code(s): E78.2 - Mixed hyperlipidemia (6) Hypothyroidism Priority: Secondary Status: Chronic Qualifiers: Hypothyroidism type: acquired Qualified Code(s): E03.9 - Hypothyroidism, unspecified (7) DVT prophylaxis Priority: Secondary Status: Acute (8) Dementia Priority: Secondary Status: Chronic Qualifiers: Dementia type: unspecified type Dementia behavioral disturbance: with behavioral disturbance Qualified Code(s): F03.91 - Unspecified dementia with behavioral disturbance (9) Protein-calorie malnutrition, moderate Priority: Secondary Status: Acute (10) Leukocytosis Priority: Secondary Status: Resolved Qualifiers: Leukocytosis type: unspecified Qualified Code(s): D72.829 - Elevated white blood cell count, unspecified (11) Ileus following gastrointestinal surgery Priority: Secondary Status: Resolved (12) Hypocalcemia Priority: Secondary Status: Acute (13) Acute renal failure due to tubular necrosis Priority: Secondary Status: Suspected Assessment and Plan: Last creatinine 1.3, may be new baseline. Recommend follow-up BMP in one week. (14) Anemia Priority: Secondary Status: Acute Qualifiers: Anemia type: unspecified type Qualified Code(s): D64.9 - Anemia, unspecified Hospital course: Ms. Stinson is a 78 year old female with dementia, HTN, thyroid disease presented for small bowel obstruction. She has a history of acute and chronic diverticulitis that caused the obstruction. She had a small bowel resection with colostomy on 04/18/18. Patient did develop and ileus after surgery and was placed on TPN until ileus resolved. She developed what is suspected an infection from an unknown soure (thought to be UTI or respiratory) and she was treated with 10 days of Zosyn. Infectious disease was consulted to aid with antibiotic treatment. She did have acute kidney injury, and likely has new baseline creatinine that is 1.3 as of 05/06/18. Patient had acute delirium while in hospital and had difficulty with oral intake. This did gradually improve. She was discharged to ECF in stable condition. Recommend BMP, CBC, and glucose monitoring. - Time Spent with Patient Total time spent providing and/or coordinating discharge services: - Discharge Medications Prescriptions: HYDROcodone/Acet 5-217 mg/10mL [Lortab Elixir] 10 ml PO Q12H PRN 3 Days #60 ml PRN Reason: pain LORazepam Oral Conc [Ativan Oral Conc] 1 mg SL Q12H PRN 3 Days #6 mg PRN Reason: Agitation Home Medications: Aspirin [Lo-Dose Aspirin EC] 81 mg PO DAILY 04/18/18 [History] Citalopram [CeleXA] 30 mg PO DAILY 04/18/18 [History] Donepezil HCl [Aricept] 10 mg PO HS 04/18/18 [History] Levothyroxine [Synthroid] 100 mcg PO DAILY 04/18/18 [History] Simvastatin [Zocor] 20 mg PO DAILY 04/18/18 [History] Cholecalciferol (D-3) [Vitamin D] 1,000 unit PO DAILY tablet 05/10/18 [Rx] HYDROcodone/Acet 5-217 mg/10mL [Lortab Elixir] 10 ml PO Q12H PRN 3 Days #60 ml 05/10/18 [Rx] LORazepam Oral Conc [Ativan Oral Conc] 1 mg SL Q12H PRN 3 Days #6 mg 05/10/18 [ Rx] Multivit/Ca/Min/Fe/FA [Thera M Plus] 1 tab PO DAILY tablet 05/10/18 [Rx] Tamsulosin [Flomax] 0.4 mg PO DAILY capsule 05/10/18 [Rx] amLODIPine [Norvasc] 10 mg PO DAILY tablet 05/10/18 [Rx] traZODone [TraZODone] 50 mg PO HS tablet 05/10/18 [Rx] Allergies/Adverse Reactions: 3 Allergy/AdvReac Type Severity Reaction Status Date / Time No Known Allergies Allergy Verified 04/20/17 08:49 Date of admission: 04/18/18 15:10 Primary care physician: Albertina Huerta MD Consults: 04/18/18 15:23 Consult to Surgery [CONS] Stat Consulting Provider: Surgery [facility] Reason for Consult: Sigmoid Colon Mass, Perforated Viscus Call Completed: Yes 04/18/18 15:24 Consult to J2Ee Architect [CONS] Routine Reason for SW Consult: family would like to discuss LTAC placement that we are recommending (surgery and hospitalist) Placement, Discharge Planning 04/19/18 15:06 Consult to Wound Care [CONS] Routine Reason for Consult: New ostomy teaching Time Notified: 09:12 Call Completed: Yes 04/20/18 07:48 Consult to Psychiatry [CONS] Routine Consulting Provider: Psychiatry Ebony Reason consult: Confusion Agitation Other reason and/or additional details: Post-op partial colon resection with colostomy. Baseline dementia, with acute worsening secondary to surgery Time Notified: 07:49 Call Completed: Yes 04/21/18 10:19 Consult to Nutrition [CONS] Routine Comment: Consulting Provider: NUTRITION Reason for Dietary Consult: PO Supplementation 04/25/18 07:43 consult to supervisor blueprinting and photocopy [Consult to Nutrition] [CONS] Routine Comment: Consulting Provider: NUTRITION Reason for Dietary Consult: TPN Start and Manage 04/27/18 09:33 Consult to Infectious Diseases [CONS] Routine Consulting Provider: Infectious Disease [facility] Reason for Consult: Persistent leukocytosis Time Notified: 09:30 Call Completed: Yes Discharging clinician: Sania Johnson - Constitutional Vitals: Temp Pulse Resp BP Pulse Ox 98.8 F 118 20 117/59 97 05/10/18 05:00 05/10/18 05:00 05/10/18 05:00 05/10/18 05:00 05/10/18 05:00 General appearance: Present: A&O X 1, no acute distress. Absent: answers questions appropriately Exam: - Head Head exam: Present: atraumatic, normocephalic - Eye Eye exam: Present: EOMI, sclera anicteric - ENT ENT exam: Present: mucous membranes dry - Neck Neck exam general surgery: Present: full ROM, trachea midline - Respiratory Respiratory exam: Present: CTAB. Absent: rales, rhonchi, wheezes - Cardiovascular Cardiovascular exam: Present: +S1, +S2, tachycardia - GI/Abdominal GI/Abdominal exam: Present: soft. Absent: firm, tenderness Additional comments: Colostomy back present. Clean site. - Patient Status Disposition: Transfer SNF Condition: Undetermined Functional capacity at discharge: wheelchair bound Overall status at discharge: patient is progressing back to baseline - Discharge Instructions Follow Up With: Virgil Hernandez MD [Partnered Physician] - 05/24/18 10:00 am Albertina Huerta MD [Primary Care Provider] - Additional Instructions: continue current medications for calm/agitation, and to keep pt comfortable and redirectable - Diet and Activity Activity: as per physical therapy Diet: advance to your usual diet - VTE Documentation of Mechanical Device: Intermittent pneumatic compression device
--- NOTE | 2018-05-10 13:02 | Physician Discharge Referral ---
ExtendedCare Referral Info Institutional Level of Care: Skilled - Diagnosis (1) Bowel obstruction Priority: Primary Status: Resolved (2) Altered mental status Priority: Secondary Status: Acute (3) Hypokalemia Priority: Secondary Status: Resolved (4) HTN (hypertension) Priority: Secondary Status: Chronic (5) HLD (hyperlipidemia) Priority: Secondary Status: Chronic (6) Hypothyroidism Priority: Secondary Status: Chronic (7) DVT prophylaxis Priority: Secondary Status: Acute (8) Dementia Priority: Secondary Status: Chronic (9) Protein-calorie malnutrition, moderate Priority: Secondary Status: Acute (10) Leukocytosis Priority: Secondary Status: Resolved (11) Ileus following gastrointestinal surgery Priority: Secondary Status: Resolved (12) Hypocalcemia Priority: Secondary Status: Acute (13) Acute renal failure due to tubular necrosis Priority: Secondary Status: Suspected (14) Anemia Priority: Secondary Status: Acute - Transfer Medications Prescriptions: HYDROcodone/Acet 5-217 mg/10mL [Lortab Elixir] 10 ml PO Q12H PRN 3 Days #60 ml PRN Reason: pain LORazepam Oral Conc [Ativan Oral Conc] 1 mg SL Q12H PRN 3 Days #6 mg PRN Reason: Agitation Home Medications: Aspirin [Lo-Dose Aspirin EC] 81 mg PO DAILY 04/18/18 [History] Citalopram [CeleXA] 30 mg PO DAILY 04/18/18 [History] Donepezil HCl [Aricept] 10 mg PO HS 04/18/18 [History] Levothyroxine [Synthroid] 100 mcg PO DAILY 04/18/18 [History] Simvastatin [Zocor] 20 mg PO DAILY 04/18/18 [History] Cholecalciferol (D-3) [Vitamin D] 1,000 unit PO DAILY tablet 05/10/18 [Rx] HYDROcodone/Acet 5-217 mg/10mL [Lortab Elixir] 10 ml PO Q12H PRN 3 Days #60 ml 05/10/18 [Rx] LORazepam Oral Conc [Ativan Oral Conc] 1 mg SL Q12H PRN 3 Days #6 mg 05/10/18 [ Rx] Multivit/Ca/Min/Fe/FA [Thera M Plus] 1 tab PO DAILY tablet 05/10/18 [Rx] Tamsulosin [Flomax] 0.4 mg PO DAILY capsule 05/10/18 [Rx] amLODIPine [Norvasc] 10 mg PO DAILY tablet 05/10/18 [Rx] traZODone [TraZODone] 50 mg PO HS tablet 05/10/18 [Rx] Allergies/Adverse Reactions: 3 Allergy/AdvReac Type Severity Reaction Status Date / Time No Known Allergies Allergy Verified 04/20/17 08:49 - Respiratory Orders Smoking Cessation: Smoking cessation has been advised. For more information, call the [place] Tobacco Quit Line at 5-314-QMRK-NOW. - Lab Orders Lab Orders: CBC (BMP, glucose checks, BP monitoring) - Advance Directives Code Status: Full Code - Mobility Orders Other (as per physical therapy) - Rehabiliation Orders Rehab Orders: Sternal Precautions, Evaluation for Physical Therapy, Evaluation for Occupational Therapy - Treatments Skin tear care topically daily PRN per policy, May check for fecal impaction rectally daily PRN - Diet Orders No Added Salt (ADELITA), Cardiac CERTIFICATION: I certify that the transfer of the above named patient to an Extended Care Facility is necessary for the continuing treatment of the diagnosis listed. The above information is true and accurate reflection of patient's current condition. Confidential - Redisclosure prohibited without a patient's written consent.
--- NOTE | 2018-05-10 13:47 | Discharge Summary ---
- NOTES TO OUTPATIENT PROVIDER Notes to Outpatient Provider: Ms. Stinson was admitted on 04/18/[address] obstruction [address] abdomen showed sigmoidal mass. She is s/p sigmoid colecyomy with end colostomy. She was on vancomycin for 11 days and was stopped due to no source of infection and to prevent renal injuries. During her stay she had waxing and waning mental status which decreased her diet and affected her sleep pattern. The past a few days she is able to get out of bed with assistance to use the bedside commode and is increasing her mentation. She should get follow up labs in 7 days to follow her metabolic status. Date of Encounter: 05/10/18 Time of Encounter: 07:10 - Discharge Diagnosis (1) Bowel obstruction Priority: Primary Status: Resolved Assessment and Plan: Resolved. Due to mass of sigmoid colon. S/p resection and colostomy. Disposition: - Patient will need placed to ECF/SNF/Swing, will be better suited to be sitter free for >24 hours. - She still needs a sitter as occasionally she gets up and walks around and is not steady or safe to do so without assistance. - High fall risk as well and is very week. - Continue PT/OT Qualifiers: Intestinal obstruction type: other intestinal obstruction Intestinal obstruction extent: complete Qualified Code(s): K56.691 - Other complete intestinal obstruction (2) Hypokalemia Priority: Secondary Status: Resolved (3) HTN (hypertension) Priority: Secondary Status: Chronic Qualifiers: Hypertension type: essential hypertension Qualified Code(s): I10 - Essential (primary) hypertension (4) HLD (hyperlipidemia) Priority: Secondary Status: Chronic Qualifiers: Hyperlipidemia type: mixed hyperlipidemia Qualified Code(s): E78.2 - Mixed hyperlipidemia (5) Hypothyroidism Priority: Secondary Status: Chronic Qualifiers: Hypothyroidism type: acquired Qualified Code(s): E03.9 - Hypothyroidism, unspecified (6) Dementia Priority: Secondary Status: Chronic Qualifiers: Dementia type: unspecified type Dementia behavioral disturbance: with behavioral disturbance Qualified Code(s): F03.91 - Unspecified dementia with behavioral disturbance (7) Protein-calorie malnutrition, moderate Priority: Secondary Status: Acute (8) Leukocytosis Priority: Secondary Status: Resolved Qualifiers: Leukocytosis type: unspecified Qualified Code(s): D72.829 - Elevated white blood cell count, unspecified (9) Ileus following gastrointestinal surgery Priority: Secondary Status: Resolved (10) Hypocalcemia Priority: Secondary Status: Acute (11) Acute renal failure due to tubular necrosis Priority: Secondary Status: Suspected (12) Altered mental status Priority: Secondary Status: Acute Qualifiers: Altered mental status type: disorientation Qualified Code(s): R41.0 - Disorientation, unspecified (13) Anemia Priority: Secondary Status: Acute Qualifiers: Anemia type: unspecified type Qualified Code(s): D64.9 - Anemia, unspecified (14) DVT prophylaxis Priority: Secondary Status: Acute Hospital course: Ms. Stinson is a 78 year old female - Time Spent with Patient Total time spent providing and/or coordinating discharge services: - Discharge Medications Prescriptions: HYDROcodone/Acet 5-217 mg/10mL [Lortab Elixir] 10 ml PO Q12H PRN 3 Days #60 ml PRN Reason: pain LORazepam Oral Conc [Ativan Oral Conc] 1 mg SL Q12H PRN 3 Days #6 mg PRN Reason: Agitation Home Medications: Aspirin [Lo-Dose Aspirin EC] 81 mg PO DAILY 04/18/18 [History] Citalopram [CeleXA] 30 mg PO DAILY 04/18/18 [History] Donepezil HCl [Aricept] 10 mg PO HS 04/18/18 [History] Levothyroxine [Synthroid] 100 mcg PO DAILY 04/18/18 [History] Simvastatin [Zocor] 20 mg PO DAILY 04/18/18 [History] Cholecalciferol (D-3) [Vitamin D] 1,000 unit PO DAILY tablet 05/10/18 [Rx] HYDROcodone/Acet 5-217 mg/10mL [Lortab Elixir] 10 ml PO Q12H PRN 3 Days #60 ml 05/10/18 [Rx] LORazepam Oral Conc [Ativan Oral Conc] 1 mg SL Q12H PRN 3 Days #6 mg 05/10/18 [ Rx] Multivit/Ca/Min/Fe/FA [Thera M Plus] 1 tab PO DAILY tablet 05/10/18 [Rx] Tamsulosin [Flomax] 0.4 mg PO DAILY capsule 05/10/18 [Rx] amLODIPine [Norvasc] 10 mg PO DAILY tablet 05/10/18 [Rx] traZODone [TraZODone] 50 mg PO HS tablet 05/10/18 [Rx] Allergies/Adverse Reactions: 3 Allergy/AdvReac Type Severity Reaction Status Date / Time No Known Allergies Allergy Verified 04/20/17 08:49 Date of admission: 04/18/18 15:10 Primary care physician: Albertina Huerta MD Consults: 04/18/18 15:23 Consult to Surgery [CONS] Stat Consulting Provider: Surgery [facility] Reason for Consult: Sigmoid Colon Mass, Perforated Viscus Call Completed: Yes 04/18/18 15:24 Consult to [employer] Feeder [CONS] Routine Reason for SW Consult: family would like to discuss LTAC placement that we are recommending (surgery and hospitalist) Placement, Discharge Planning 04/19/18 15:06 Consult to Wound Care [CONS] Routine Reason for Consult: New ostomy teaching Time Notified: 09:12 Call Completed: Yes 04/20/18 07:48 Consult to Psychiatry [CONS] Routine Consulting Provider: Psychiatry Ebony Reason consult: Confusion Agitation Other reason and/or additional details: Post-op partial colon resection with colostomy. Baseline dementia, with acute worsening secondary to surgery Time Notified: 07:49 Call Completed: Yes 04/21/18 10:19 Consult to Nutrition [CONS] Routine Comment: Consulting Provider: NUTRITION Reason for Dietary Consult: PO Supplementation 04/25/18 07:43 consult to wire welder [Consult to Nutrition] [CONS] Routine Comment: Consulting Provider: NUTRITION Reason for Dietary Consult: TPN Start and Manage 04/27/18 09:33 Consult to Infectious Diseases [CONS] Routine Consulting Provider: Infectious Disease Ebony Reason for Consult: Persistent leukocytosis Time Notified: 09:30 Call Completed: Yes Discharging clinician: Kimberley Mccartney Anticipated date of discharge: 05/10/18 - Constitutional Vitals: Temp Pulse Resp BP Pulse Ox 98.8 F 118 20 117/59 97 05/10/18 05:00 05/10/18 05:00 05/10/18 05:00 05/10/18 05:00 05/10/18 05:00 General appearance: Present: A&O X 1, no acute distress. Absent: answers questions appropriately - Patient Status Disposition: Transfer SNF Condition: Undetermined - Discharge Instructions Follow Up With: Virgil Hernandez MD [Partnered Physician] - 05/24/18 10:00 am Albertina Huerta MD [Primary Care Provider] - Additional Instructions: continue current medications for calm/agitation, and to keep pt comfortable and redirectable - VTE Documentation of Mechanical Device: Intermittent pneumatic compression device
== END 2018-05-10 14:02 | DRG 329 ==
LOC: 3ANU 15:10 → SUATTDRO 15:10 → 3ANU 04-20 04:11
PROVIDERS: ADMIT Family Medicine; ATTEND Internal Medicine

== ENCOUNTER 2018-05-14 01:15 | Inpatient (IN) ==
[2018-05-14] MEDS ORDERED: 0.9 % Sodium Chloride 1,000 ML IVC ONE ×4 (01:25→08:29)
--- NOTE | 2018-05-14 01:46 | Emergency Department Note ---
Disposition Clinical Impression: Acute respiratory failure with hypoxia Disposition: Admitted As Inpatient Condition: Critical Referrals: Albertina Huerta MD [Primary Care Provider] - Forms: ED Satisfaction Letter, Work/School Release General Adult HPI - General Chief complaint: ED General Medical Stated complaint: General Time Seen by Provider: 05/14/18 01:27 Source: EMS Limitations: altered mental status - History of Present Illness Pain Scale: 8 - Related Data Home Medications Medication Instructions Recorded Confirmed Aspirin [Lo-Dose Aspirin EC] 81 mg PO DAILY 04/18/18 04/18/18 Citalopram [CeleXA] 30 mg PO DAILY 04/18/18 04/18/18 Donepezil HCl [Aricept] 10 mg PO HS 04/18/18 04/18/18 Levothyroxine [Synthroid] 100 mcg PO DAILY 04/18/18 04/18/18 Simvastatin [Zocor] 20 mg PO DAILY 04/18/18 04/18/18 Previous Rx's Medication Instructions Recorded Cholecalciferol (D-3) [Vitamin D] 1,000 unit PO DAILY tablet 05/10/18 HYDROcodone/Acet 5-217 mg/10mL 10 ml PO Q12H PRN 3 Days #60 ml 05/10/18 [Lortab Elixir] LORazepam Oral Conc [Ativan Oral 1 mg SL Q12H PRN 3 Days #6 mg 05/10/18 Conc] Multivit/Ca/Min/Fe/FA [Thera M 1 tab PO DAILY tablet 05/10/18 Plus] Tamsulosin [Flomax] 0.4 mg PO DAILY capsule 05/10/18 amLODIPine [Norvasc] 10 mg PO DAILY tablet 05/10/18 traZODone [TraZODone] 50 mg PO HS tablet 05/10/18 Allergies Allergy/AdvReac Type Severity Reaction Status Date / Time No Known Allergies Allergy Verified 04/20/17 08:49 Past Medical History - Past Medical History Medical history: Reports: hyperlipidemia, hypertension, thyroid disease, venous stasis, other Surgical history: Reports: no surgical history Psychiatric history: Reports: other - Social History Smoking Status: Never smoker Smokeless Tobacco Status: No Alcohol use: Reports: none Drug use: Reports: none Physical Exam - General Limitations: altered mental status General appearance: alert Course Vital Signs Temperature 98.6 F 05/14/18 01:20 Pulse Rate 107 05/14/18 01:20 Respiratory Rate 40 05/14/18 01:20 Blood Pressure 73/51 05/14/18 01:20 O2 Sat by Pulse Oximetry 85 05/14/18 01:20 Temperature 98.6 F 05/14/18 01:20 Pulse Rate 92 05/14/18 05:42 Respiratory Rate 24 05/14/18 05:42 Blood Pressure 91/68 05/14/18 05:42 O2 Sat by Pulse Oximetry 96 05/14/18 05:42 Oxygen Delivery Oxygen Delivery Room Air Medical Decision Making - Lab Data Result diagrams: 05/14/18 03:26 05/14/18 03:48 Lab Results 05/14/18 05/14/18 05/14/18 Range/Units 01:56 02:06 02:57 WBC (4.3-11.1) K/mcL RBC (3.82-4.97) M/mcL Hgb (11.5-15.4) g/dL Hct (35.3-44.9) % MCV (83.0-100.0) fL MCH (28.0-33.3) pg MCHC (31.6-35.5) g/dL RDW (11.5-14.5) % Plt Count (140-400) K/mcL MPV (9.4-12.4) fL Immature Gran % (0-4) % Seg Neutrophils % % Lymphocytes % % Monocytes % % Eosinophils % % Basophils % % Neutrophils # (1.6-8.9) K/mcL Lymphocytes # (0.6-4.6) K/mcL Monocytes # (0.0-1.3) K/mcL Eosinophils # (0.0-0.6) K/mcL Basophils # (0.0-0.2) K/mcL Nucleated RBCs/100 WBC (0) /100 WBC Platelet Estimate (Normal) Polychromasia (Not Present) Sample Site R Radial ABG pH 7.24 L (7.32-7.45) pH Units ABG pCO2 27 L (35-45) mmHg ABG pO2 63 L (85-104) mmHg ABG HCO3 12 L (21-27) mEq/L ABG Total CO2 12 L (20-26) mEq/L ABG O2 Saturation 88 L (95-98) % ABG Base Excess -14 L (-2 to 3) mEq/L Chad Test Positive Respiration Rate O2 Delivery Device NRB Blood Gas Modality Inspired O2 100.0 (1-15=lpm [id number]=%) Tidal Volume cc PEEP cm H2O Sodium 171 H* (136-145) mEq/L Potassium 2.8 L (3.5-5.1) mEq/L Chloride 141 H (98-107) mEq/L Carbon Dioxide 12 L (23-29) mEq/L BUN 93 H (8-23) mg/dL Creatinine 6.46 H (0.60-1.20) mg/dL Est GFR ( Amer) 8 L (> 60) Est GFR (Non-Af Amer) 6 L (> 60) BUN/Creatinine Ratio 14 (6-26) Glucose 123 H (70-105) mg/dL Calculated Osmolality 382 H (280-300) Lactic Acid (0.5-2.2) mmol/L Calcium 7.6 L (8.6-10.3) mg/dL Phosphorus 5.4 H (2.7-4.5) mg/dL Magnesium 2.1 (1.6-2.6) mg/dL Total Bilirubin 0.6 (0.3-1.0) mg/dL Direct Bilirubin 0.3 H (0.0-0.2) mg/dL Indirect Bilirubin 0.3 (0.0-1.2) mg/dL AST 45 H (13-39) Units/L ALT 42 (7-52) Units/L Alkaline Phosphatase 60 (34-104) Units/L Troponin I 0.07 H* (< 0.04) ng/mL Serum Total Protein 5.9 L (6.4-8.9) g/dL Albumin 2.6 L (3.5-5.7) g/dL Globulin 3.3 (2.4-3.5) g/dL Albumin/Globulin Ratio 0.8 L (1.1-2.2) Urine Color Dark Yellow (Yellow) Urine Clarity Cloudy A (Clear) Urine pH 7.5 (5.0-8.0) pH Units Ur Specific [place] 1.021 (1.010-1.025) Urine Protein 30 H (Neg-Trace) mg/dL Urine Glucose (UA) Normal (Normal) mg/dL Urine Ketones Negative (Negative) mg/dL Urine Blood Negative (Negative) Urine Nitrite Negative (Negative) Urine Bilirubin Small H (Negative) Urine Urobilinogen Normal (Normal) mg/dL Ur Leukocyte Esterase Large H (Negative) Urine Microscopic RBC 3-5 H (0-3) per hpf Urine Microscopic WBC 15-30 H (0-3) per hpf Ur Squamous Epith Cells Moderate H (None-Few) per lpf Ur Transition Epith Cell Few (None-Few) per hpf Urine Bacteria Moderate H (None-Few) per hpf Hyaline Casts Few (None-Few) per lpf Ur Culture Indicated? YES A (NO) 05/14/18 05/14/18 05/14/18 Range/Units 02:57 03:25 03:26 WBC 17.8 H (4.3-11.1) K/mcL RBC 3.89 (3.82-4.97) M/mcL Hgb 11.2 L (11.5-15.4) g/dL Hct 37.7 (35.3-44.9) % MCV 96.9 D (83.0-100.0) fL MCH 28.8 (28.0-33.3) pg MCHC 29.7 L (31.6-35.5) g/dL RDW 18.7 H (11.5-14.5) % Plt Count 247 (140-400) K/mcL MPV 11.3 (9.4-12.4) fL Immature Gran % 1.3 (0-4) % Seg Neutrophils % 90.4 % Lymphocytes % 5.1 % Monocytes % 2.6 % Eosinophils % 0.4 % Basophils % 0.2 % Neutrophils # 16.1 H (1.6-8.9) K/mcL Lymphocytes # 0.9 (0.6-4.6) K/mcL Monocytes # 0.5 (0.0-1.3) K/mcL Eosinophils # 0.1 (0.0-0.6) K/mcL Basophils # 0.0 (0.0-0.2) K/mcL Nucleated RBCs/100 WBC 2.4 H (0) /100 WBC Platelet Estimate Normal (Normal) Polychromasia 1+ A (Not Present) Sample Site R Radial ABG pH 7.07 L* D (7.32-7.45) pH Units ABG pCO2 50 H D (35-45) mmHg ABG pO2 107 H D (85-104) mmHg ABG HCO3 15 L (21-27) mEq/L ABG Total CO2 16 L (20-26) mEq/L ABG O2 Saturation 95 (95-98) % ABG Base Excess -15 L (-2 to 3) mEq/L Chad Test Positive Respiration Rate 14 O2 Delivery Device Adult Vent Blood Gas Modality ASSIST CONTROL Inspired O2 100.0 (1-15=lpm [id number]=%) Tidal Volume 400 cc PEEP 5 cm H2O Sodium (136-145) mEq/L Potassium (3.5-5.1) mEq/L Chloride (98-107) mEq/L Carbon Dioxide (23-29) mEq/L BUN (8-23) mg/dL Creatinine (0.60-1.20) mg/dL Est GFR ( Amer) (> 60) Est GFR (Non-Af Amer) (> 60) BUN/Creatinine Ratio (6-26) Glucose (70-105) mg/dL Calculated Osmolality (280-300) Lactic Acid 7.5 H* (0.5-2.2) mmol/L Calcium (8.6-10.3) mg/dL Phosphorus (2.7-4.5) mg/dL Magnesium (1.6-2.6) mg/dL Total Bilirubin (0.3-1.0) mg/dL Direct Bilirubin (0.0-0.2) mg/dL Indirect Bilirubin (0.0-1.2) mg/dL AST (13-39) Units/L ALT (7-52) Units/L Alkaline Phosphatase (34-104) Units/L Troponin I (< 0.04) ng/mL Serum Total Protein (6.4-8.9) g/dL Albumin (3.5-5.7) g/dL Globulin (2.4-3.5) g/dL Albumin/Globulin Ratio (1.1-2.2) Urine Color (Yellow) Urine Clarity (Clear) Urine pH (5.0-8.0) pH Units Ur Specific [place] (1.010-1.025) Urine Protein (Neg-Trace) mg/dL Urine Glucose (UA) (Normal) mg/dL Urine Ketones (Negative) mg/dL Urine Blood (Negative) Urine Nitrite (Negative) Urine Bilirubin (Negative) Urine Urobilinogen (Normal) mg/dL Ur Leukocyte Esterase (Negative) Urine Microscopic RBC (0-3) per hpf Urine Microscopic WBC (0-3) per hpf Ur Squamous Epith Cells (None-Few) per lpf Ur Transition Epith Cell (None-Few) per hpf Urine Bacteria (None-Few) per hpf Hyaline Casts (None-Few) per lpf Ur Culture Indicated? (NO) 05/14/18 05/14/18 Range/Units 03:48 04:19 WBC (4.3-11.1) K/mcL RBC (3.82-4.97) M/mcL Hgb (11.5-15.4) g/dL Hct (35.3-44.9) % MCV (83.0-100.0) fL MCH (28.0-33.3) pg MCHC (31.6-35.5) g/dL RDW (11.5-14.5) % Plt Count (140-400) K/mcL MPV (9.4-12.4) fL Immature Gran % (0-4) % Seg Neutrophils % % Lymphocytes % % Monocytes % % Eosinophils % % Basophils % % Neutrophils # (1.6-8.9) K/mcL Lymphocytes # (0.6-4.6) K/mcL Monocytes # (0.0-1.3) K/mcL Eosinophils # (0.0-0.6) K/mcL Basophils # (0.0-0.2) K/mcL Nucleated RBCs/100 WBC (0) /100 WBC Platelet Estimate (Normal) Polychromasia (Not Present) Sample Site R Radial ABG pH 7.29 L D (7.32-7.45) pH Units ABG pCO2 35 (35-45) mmHg ABG pO2 82 L (85-104) mmHg ABG HCO3 17 L (21-27) mEq/L ABG Total CO2 18 L (20-26) mEq/L ABG O2 Saturation 95 (95-98) % ABG Base Excess -9 L (-2 to 3) mEq/L Chad Test Positive Respiration Rate 24 O2 Delivery Device Adult Vent Blood Gas Modality ASSIST CONTROL Inspired O2 100.0 (1-15=lpm rb68-079=%) Tidal Volume 450 cc PEEP 5 cm H2O Sodium 173 H* (136-145) mEq/L Potassium 3.1 L (3.5-5.1) mEq/L Chloride 137 H (98-107) mEq/L Carbon Dioxide 17 L (23-29) mEq/L BUN 93 H (8-23) mg/dL Creatinine 6.70 H (0.60-1.20) mg/dL Est GFR ( Amer) 7 L (> 60) Est GFR (Non-Af Amer) 6 L (> 60) BUN/Creatinine Ratio 14 (6-26) Glucose 138 H (70-105) mg/dL Calculated Osmolality 387 H (280-300) Lactic Acid (0.5-2.2) mmol/L Calcium 8.1 L (8.6-10.3) mg/dL Phosphorus (2.7-4.5) mg/dL Magnesium (1.6-2.6) mg/dL Total Bilirubin (0.3-1.0) mg/dL Direct Bilirubin (0.0-0.2) mg/dL Indirect Bilirubin (0.0-1.2) mg/dL AST (13-39) Units/L ALT (7-52) Units/L Alkaline Phosphatase (34-104) Units/L Troponin I (< 0.04) ng/mL Serum Total Protein (6.4-8.9) g/dL Albumin (3.5-5.7) g/dL Globulin (2.4-3.5) g/dL Albumin/Globulin Ratio (1.1-2.2) Urine Color (Yellow) Urine Clarity (Clear) Urine pH (5.0-8.0) pH Units Ur Specific [place] (1.010-1.025) Urine Protein (Neg-Trace) mg/dL Urine Glucose (UA) (Normal) mg/dL Urine Ketones (Negative) mg/dL Urine Blood (Negative) Urine Nitrite (Negative) Urine Bilirubin (Negative) Urine Urobilinogen (Normal) mg/dL Ur Leukocyte Esterase (Negative) Urine Microscopic RBC (0-3) per hpf Urine Microscopic WBC (0-3) per hpf Ur Squamous Epith Cells (None-Few) per lpf Ur Transition Epith Cell (None-Few) per hpf Urine Bacteria (None-Few) per hpf Hyaline Casts (None-Few) per lpf Ur Culture Indicated? (NO) Critical Care Time Critical Care Time: Yes Total Critical Care Time: 55 Attestation: Critical care performed: Time is exclusive of separately billable procedures. Time includes: direct patient care, patient reassessment, coordination of patient care, interpretation of data (laboratory data, radiology data, and respiratory data), review of patient's medical records, medical consultation and documentation of patient care. Procedures included in critical care time: Procedures excluded from critical care time: Attestation Statement - Attestation Attestation: I examined this patient and my medical decision-making was reviewed with the Resident Physician. I agree with the documented findings, disposition and treatment plan as described except to the extent set forth below. Patient to the ED in respiratory distress. Patient recently sent to [facility] on Wednesday after being admitted following a partial colectomy with diverting colostomy. They noticed she was gurgling. Daughter states last week she was up to the bedside commode and talking. Since she has been discharged she just lays in bed with her eyes closed. She will mumble a few words every now and then. On examination she is tachypneic. Laying in bed with her eyes closed. She is moving arms and legs. Lungs with diffuse rhonchi. Plan. Septic workup. Patient in septic shock. Giving broad-spectrum antibiotics. CT scans pending. Patient still hypertensive on Max Levophed. Starting vasopressin. CT shows pneumonia. Patient is on septic shock requiring multiple pressors. Accepted to ICU. Head CT 05/14/18 01:29 IMPRESSION: Progressive atrophy and microvascular ischemic changes. No acute intracranial hemorrhage or global mass effect. No evidence of a intracranial abscess. D/ / Terrence Anderson MD / Terrence Anderson MD Interpreting Provider: Terrence Anderson MD Chest X-Ray 05/14/18 02:54 IMPRESSION: 1. Endotracheal tube 3 cm above the anu. 2. Right CVC tip in the distal superior vena cava with no pneumothorax. 3. Progressive bilateral asymmetric pulmonary opacities which may represent developing edema or multifocal pneumonia. D/ / Terrence Anderson MD / Terrence Anderson MD Interpreting Provider: Terrence Anderson MD Abdomen/Pelvis CT 05/14/18 03:44 IMPRESSION: 1. Interval improvement of bilateral pleural effusions which are not trace. 2. Bilateral lower lobe bronchial opacification with lower lobe consolidation and multifocal upper lobe bronchiolitis. This may represent aspiration pneumonitis. 3. Postsurgical change with adhesions and no evidence of bowel obstruction, perforation, or abscess. 4. Interval resolution of ascites. 5. Redemonstration of cholelithiasis with no evidence of acute cholecystitis or biliary obstruction. D/ / Terrence Anderson MD / Terrence Anderson MD Interpreting Provider: Terrence Anderson MD Chest CT 05/14/18 03:44
--- NOTE | 2018-05-14 01:56 | Emergency Department Note ---
Disposition Clinical Impression: Acute respiratory failure with hypoxia, Lactic acidosis, Healthcare-associated pneumonia, Hypernatremia, Encephalopathy, Elevated troponin, Septic shock Acute renal failure Qualifiers: Acute renal failure type: unspecified Qualified Code(s): N17.9 - Acute kidney failure, unspecified Disposition: Admitted As Inpatient Condition: Critical General Adult HPI - General Chief complaint: ED General Medical Stated complaint: General Time Seen by Provider: 05/14/18 01:27 Source: EMS Mode of arrival: EMS Limitations: altered mental status Nursing Notes Reviewed: Yes Vital Signs Reviewed: Yes - History of Present Illness HPI Narrative: 78-year-old female presents from nursing facility due to concern for aspiration. EMS reports staff there heard a gurgling sound when he walked into her room. Patient was brought in for evaluation. Upon arrival the patient does not open her eyes to voice or pain. She does not verbalize during evaluation. She also does not follow commands. Family present reports that on Wednesday she was not like this. States that at her baseline she has dementia however she is alert opens her eyes spontaneously and will talk with her. She usually takes things by mouth however she has not had anything to eat for the last 2 days. 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 No other complaints. 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 Pain Scale: 8 Improves with: nothing Worsens with: nothing Treatments Prior to Arrival: none - Related Data Home Medications Medication Instructions Recorded Confirmed Aspirin [Lo-Dose Aspirin EC] 81 mg PO DAILY 04/18/18 04/18/18 Citalopram [CeleXA] 30 mg PO DAILY 04/18/18 04/18/18 Donepezil HCl [Aricept] 10 mg PO HS 04/18/18 04/18/18 Levothyroxine [Synthroid] 100 mcg PO DAILY 04/18/18 04/18/18 Simvastatin [Zocor] 20 mg PO DAILY 04/18/18 04/18/18 Previous Rx's Medication Instructions Recorded Cholecalciferol (D-3) [Vitamin D] 1,000 unit PO DAILY tablet 05/10/18 HYDROcodone/Acet 5-217 mg/10mL 10 ml PO Q12H PRN 3 Days #60 ml 05/10/18 [Lortab Elixir] LORazepam Oral Conc [Ativan Oral 1 mg SL Q12H PRN 3 Days #6 mg 05/10/18 Conc] Multivit/Ca/Min/Fe/FA [Thera M 1 tab PO DAILY tablet 05/10/18 Plus] Tamsulosin [Flomax] 0.4 mg PO DAILY capsule 05/10/18 amLODIPine [Norvasc] 10 mg PO DAILY tablet 05/10/18 traZODone [TraZODone] 50 mg PO HS tablet 05/10/18 Allergies Allergy/AdvReac Type Severity Reaction Status Date / Time No Known Allergies Allergy Verified 04/20/17 08:49 Limitations: ROS unobtainable due to patients medical condition Past Medical History - Past Medical History Attestation: Yes The following information was validated with the patient. Source: old records reviewed, obtained from family Medical history: Reports: hyperlipidemia, hypertension, thyroid disease, venous stasis, other Surgical history: Reports: no surgical history Psychiatric history: Reports: other - Social History Smoking Status: Never smoker Smokeless Tobacco Status: No Alcohol use: Reports: none Drug use: Reports: none Physical Exam - General Limitations: altered mental status General appearance: lethargic - Head Head exam: atraumatic, normocephalic - ENT ENT exam: normal exam - Neck Neck exam: Present: normal inspection - Respiratory Respiratory exam: Present: other (Diminished bilaterally). Absent: wheezes, accessory muscle use, prolonged expiratory phase - Cardiovascular Cardiovascular exam: Present: normal rhythm, tachycardia, normal heart sounds - Abdominal Exam Abdominal exam: Present: soft, Non-Tender, other (Left lower quadrant colostomy) . Absent: distention, rigidity - Extremities Exam Extremities exam: Present: normal inspection - Expanded Upper Extremity Exam Shoulder exam: Present: normal inspection Arm exam: Present: normal inspection Elbow exam: Present: normal inspection Forearm/Wrist exam: Present: normal inspection Hand exam: Present: normal inspection - Expanded Lower Extremity Exam Hip/Pelvis exam: Present: normal inspection Upper leg exam: Present: normal inspection Knee exam: Present: normal inspection Lower leg exam: Present: normal inspection Ankle exam: Present: normal inspection Foot/toe exam: Present: other (Mottling to the lower extremities) Neurovascular/Tendon exam: Absent: normal capillary refill (Refill 4 seconds) - Expanded Neurological Exam Coma Scale Eye Opening: None Coma Scale Motor Response: Localizes to Pain Coma Scale Verbal Response: Incomprehensible Coma Scale Total: 8 Course Course Narrative: Patient seen and examined. Vital signs reviewed. Plan for CT head, EKG, chest x-ray, labs, lactate, blood cultures. 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 Her hospitalization was complicated by intraoperative spillage of stool as well as low-grade fevers and SIRS during her hospitalization with negative blood culture results. - Reevaluation(s) Reevaluation #1: ABG demonstrating respiratory alkalosis with compensatory metabolic acidosis. Patient became hypoxic despite nonrebreather placement. Given her mental status she is not a candidate for BiPAP. I discussed these findings with the patient's family in the waiting room. Obtained verbal consent for intubation and central line placement after discussing indications as well as risks and benefits of the procedures. Patient intubated and central line placed, please see procedure notes for details. She did become hypotensive and received multiple doses of post dose epinephrine. Levophed ordered and titrated with goal map greater than 60 Reevaluation #2: Repeat ABG demonstrates hypercapnic respiratory acidosis with a pH nearing 7. Patient also becoming hypotensive despite escalating Levophed. Bicarbonate administered to improve vasopressor activity as well as addition of vasopressin. CT chest abdomen and pelvis ordered however at this time the patient is too unstable to be transferred for imaging. I had a long discussion with the patient's family at bedside. Discussed the severity of her illness and that she is critically ill. Again discussed goals of care and CODE STATUS. Request all interventions to be done at this time. Reevaluation #3: Labs confirmed with recheck a BMP of 173 for her sodium. She has a total body water deficit of 6.8 L. We will continue volume resuscitation. Additional Reevaluation(s): I accompanied the patient to CT. Once back in the room the patient did desaturate to 85%. Increased peep to 8. She improved back to 95%. Imaging reviewed. Evidence of likely aspiration pneumonia versus pneumonitis. Broad-spectrum antibiotic coverage with vancomycin and Zosyn. Patient will be admitted to the hospitalist service for further evaluation. 06:10 after imaging resulted I spoke with family in the waiting room. Discussed the critical nature of her illness and the poor likelihood that she may survive. Provided reassurance that we would continue interventions at their request. At this time they still request that she be a full code. Plan to admit to the ICU. Vital Signs Temperature 98.6 F 05/14/18 01:20 Pulse Rate 107 05/14/18 01:20 Respiratory Rate 40 05/14/18 01:20 Blood Pressure 73/51 05/14/18 01:20 O2 Sat by Pulse Oximetry 85 05/14/18 01:20 Temperature 98.6 F 05/14/18 01:20 Pulse Rate 92 05/14/18 05:42 Respiratory Rate 24 05/14/18 05:42 Blood Pressure 91/68 05/14/18 05:42 O2 Sat by Pulse Oximetry 96 05/14/18 05:42 Oxygen Delivery Oxygen Delivery Room Air Medical Decision Making - MDM Narrative Medical decision making narrative: 78-year-old female presents due to altered mental status and concern for aspiration. As per family baseline is alert and interactive and forgetful secondary to her dementia. Reports that she has not had anything to eat or drink for at least last 48 hours. She is postop from a divergent colostomy last month with a complicated hospital stay with infectious disease consultation without source of infection. The patient has acute metabolic derangements here including hypernatremia of 173, hyperchloremia, acute renal failure, elevated troponin and lactic acidosis. CT imaging demonstrates pneumonia. Patient required vasopressor intervention of Levophed and vasopressin. Patient covered with broad-spectrum antibiotics of vancomycin and Zosyn. Admitted to the hospitalist service to the intensive care unit in serious condition. - Lab Data Lab results reviewed: Yes I reviewed the patient's lab results. Result diagrams: 05/14/18 03:26 05/14/18 03:48 Lab Results 05/14/18 05/14/18 05/14/18 Range/Units 01:56 02:06 02:57 WBC (4.3-11.1) K/mcL RBC (3.82-4.97) M/mcL Hgb (11.5-15.4) g/dL Hct (35.3-44.9) % MCV (83.0-100.0) fL MCH (28.0-33.3) pg MCHC (31.6-35.5) g/dL RDW (11.5-14.5) % Plt Count (140-400) K/mcL MPV (9.4-12.4) fL Immature Gran % (0-4) % Seg Neutrophils % % Lymphocytes % % Monocytes % % Eosinophils % % Basophils % % Neutrophils # (1.6-8.9) K/mcL Lymphocytes # (0.6-4.6) K/mcL Monocytes # (0.0-1.3) K/mcL Eosinophils # (0.0-0.6) K/mcL Basophils # (0.0-0.2) K/mcL Nucleated RBCs/100 WBC (0) /100 WBC Platelet Estimate (Normal) Polychromasia (Not Present) Sample Site R Radial ABG pH 7.24 L (7.32-7.45) pH Units ABG pCO2 27 L (35-45) mmHg ABG pO2 63 L (85-104) mmHg ABG HCO3 12 L (21-27) mEq/L ABG Total CO2 12 L (20-26) mEq/L ABG O2 Saturation 88 L (95-98) % ABG Base Excess -14 L (-2 to 3) mEq/L Chad Test Positive Respiration Rate O2 Delivery Device NRB Blood Gas Modality Inspired O2 100.0 (1-15=lpm qg11-760=%) Tidal Volume cc PEEP cm H2O Sodium 171 H* (136-145) mEq/L Potassium 2.8 L (3.5-5.1) mEq/L Chloride 141 H (98-107) mEq/L Carbon Dioxide 12 L (23-29) mEq/L BUN 93 H (8-23) mg/dL Creatinine 6.46 H (0.60-1.20) mg/dL Est GFR ( Amer) 8 L (> 60) Est GFR (Non-Af Amer) 6 L (> 60) BUN/Creatinine Ratio 14 (6-26) Glucose 123 H (70-105) mg/dL Calculated Osmolality 382 H (280-300) Lactic Acid (0.5-2.2) mmol/L Calcium 7.6 L (8.6-10.3) mg/dL Phosphorus 5.4 H (2.7-4.5) mg/dL Magnesium 2.1 (1.6-2.6) mg/dL Total Bilirubin 0.6 (0.3-1.0) mg/dL Direct Bilirubin 0.3 H (0.0-0.2) mg/dL Indirect Bilirubin 0.3 (0.0-1.2) mg/dL AST 45 H (13-39) Units/L ALT 42 (7-52) Units/L Alkaline Phosphatase 60 (34-104) Units/L Troponin I 0.07 H* (< 0.04) ng/mL Serum Total Protein 5.9 L (6.4-8.9) g/dL Albumin 2.6 L (3.5-5.7) g/dL Globulin 3.3 (2.4-3.5) g/dL Albumin/Globulin Ratio 0.8 L (1.1-2.2) Urine Color Dark Yellow (Yellow) Urine Clarity Cloudy A (Clear) Urine pH 7.5 (5.0-8.0) pH Units Ur Specific [place] 1.021 (1.010-1.025) Urine Protein 30 H (Neg-Trace) mg/dL Urine Glucose (UA) Normal (Normal) mg/dL Urine Ketones Negative (Negative) mg/dL Urine Blood Negative (Negative) Urine Nitrite Negative (Negative) Urine Bilirubin Small H (Negative) Urine Urobilinogen Normal (Normal) mg/dL Ur Leukocyte Esterase Large H (Negative) Urine Microscopic RBC 3-5 H (0-3) per hpf Urine Microscopic WBC 15-30 H (0-3) per hpf Ur Squamous Epith Cells Moderate H (None-Few) per lpf Ur Transition Epith Cell Few (None-Few) per hpf Urine Bacteria Moderate H (None-Few) per hpf Hyaline Casts Few (None-Few) per lpf Ur Culture Indicated? YES A (NO) 05/14/18 05/14/18 05/14/18 Range/Units 02:57 03:25 03:26 WBC 17.8 H (4.3-11.1) K/mcL RBC 3.89 (3.82-4.97) M/mcL Hgb 11.2 L (11.5-15.4) g/dL Hct 37.7 (35.3-44.9) % MCV 96.9 D (83.0-100.0) fL MCH 28.8 (28.0-33.3) pg MCHC 29.7 L (31.6-35.5) g/dL RDW 18.7 H (11.5-14.5) % Plt Count 247 (140-400) K/mcL MPV 11.3 (9.4-12.4) fL Immature Gran % 1.3 (0-4) % Seg Neutrophils % 90.4 % Lymphocytes % 5.1 % Monocytes % 2.6 % Eosinophils % 0.4 % Basophils % 0.2 % Neutrophils # 16.1 H (1.6-8.9) K/mcL Lymphocytes # 0.9 (0.6-4.6) K/mcL Monocytes # 0.5 (0.0-1.3) K/mcL Eosinophils # 0.1 (0.0-0.6) K/mcL Basophils # 0.0 (0.0-0.2) K/mcL Nucleated RBCs/100 WBC 2.4 H (0) /100 WBC Platelet Estimate Normal (Normal) Polychromasia 1+ A (Not Present) Sample Site R Radial ABG pH 7.07 L* D (7.32-7.45) pH Units ABG pCO2 50 H D (35-45) mmHg ABG pO2 107 H D (85-104) mmHg ABG HCO3 15 L (21-27) mEq/L ABG Total CO2 16 L (20-26) mEq/L ABG O2 Saturation 95 (95-98) % ABG Base Excess -15 L (-2 to 3) mEq/L Chad Test Positive Respiration Rate 14 O2 Delivery Device Adult Vent Blood Gas Modality ASSIST CONTROL Inspired O2 100.0 (1-15=lpm fm51-203=%) Tidal Volume 400 cc PEEP 5 cm H2O Sodium (136-145) mEq/L Potassium (3.5-5.1) mEq/L Chloride (98-107) mEq/L Carbon Dioxide (23-29) mEq/L BUN (8-23) mg/dL Creatinine (0.60-1.20) mg/dL Est GFR ( Amer) (> 60) Est GFR (Non-Af Amer) (> 60) BUN/Creatinine Ratio (6-26) Glucose (70-105) mg/dL Calculated Osmolality (280-300) Lactic Acid 7.5 H* (0.5-2.2) mmol/L Calcium (8.6-10.3) mg/dL Phosphorus (2.7-4.5) mg/dL Magnesium (1.6-2.6) mg/dL Total Bilirubin (0.3-1.0) mg/dL Direct Bilirubin (0.0-0.2) mg/dL Indirect Bilirubin (0.0-1.2) mg/dL AST (13-39) Units/L ALT (7-52) Units/L Alkaline Phosphatase (34-104) Units/L Troponin I (< 0.04) ng/mL Serum Total Protein (6.4-8.9) g/dL Albumin (3.5-5.7) g/dL Globulin (2.4-3.5) g/dL Albumin/Globulin Ratio (1.1-2.2) Urine Color (Yellow) Urine Clarity (Clear) Urine pH (5.0-8.0) pH Units Ur Specific [place] (1.010-1.025) Urine Protein (Neg-Trace) mg/dL Urine Glucose (UA) (Normal) mg/dL Urine Ketones (Negative) mg/dL Urine Blood (Negative) Urine Nitrite (Negative) Urine Bilirubin (Negative) Urine Urobilinogen (Normal) mg/dL Ur Leukocyte Esterase (Negative) Urine Microscopic RBC (0-3) per hpf Urine Microscopic WBC (0-3) per hpf Ur Squamous Epith Cells (None-Few) per lpf Ur Transition Epith Cell (None-Few) per hpf Urine Bacteria (None-Few) per hpf Hyaline Casts (None-Few) per lpf Ur Culture Indicated? (NO) 05/14/18 05/14/18 Range/Units 03:48 04:19 WBC (4.3-11.1) K/mcL RBC (3.82-4.97) M/mcL Hgb (11.5-15.4) g/dL Hct (35.3-44.9) % MCV (83.0-100.0) fL MCH (28.0-33.3) pg MCHC (31.6-35.5) g/dL RDW (11.5-14.5) % Plt Count (140-400) K/mcL MPV (9.4-12.4) fL Immature Gran % (0-4) % Seg Neutrophils % % Lymphocytes % % Monocytes % % Eosinophils % % Basophils % % Neutrophils # (1.6-8.9) K/mcL Lymphocytes # (0.6-4.6) K/mcL Monocytes # (0.0-1.3) K/mcL Eosinophils # (0.0-0.6) K/mcL Basophils # (0.0-0.2) K/mcL Nucleated RBCs/100 WBC (0) /100 WBC Platelet Estimate (Normal) Polychromasia (Not Present) Sample Site R Radial ABG pH 7.29 L D (7.32-7.45) pH Units ABG pCO2 35 (35-45) mmHg ABG pO2 82 L (85-104) mmHg ABG HCO3 17 L (21-27) mEq/L ABG Total CO2 18 L (20-26) mEq/L ABG O2 Saturation 95 (95-98) % ABG Base Excess -9 L (-2 to 3) mEq/L Chad Test Positive Respiration Rate 24 O2 Delivery Device Adult Vent Blood Gas Modality ASSIST CONTROL Inspired O2 100.0 (1-15=lpm fg79-200=%) Tidal Volume 450 cc PEEP 5 cm H2O Sodium 173 H* (136-145) mEq/L Potassium 3.1 L (3.5-5.1) mEq/L Chloride 137 H (98-107) mEq/L Carbon Dioxide 17 L (23-29) mEq/L BUN 93 H (8-23) mg/dL Creatinine 6.70 H (0.60-1.20) mg/dL Est GFR ( Amer) 7 L (> 60) Est GFR (Non-Af Amer) 6 L (> 60) BUN/Creatinine Ratio 14 (6-26) Glucose 138 H (70-105) mg/dL Calculated Osmolality 387 H (280-300) Lactic Acid (0.5-2.2) mmol/L Calcium 8.1 L (8.6-10.3) mg/dL Phosphorus (2.7-4.5) mg/dL Magnesium (1.6-2.6) mg/dL Total Bilirubin (0.3-1.0) mg/dL Direct Bilirubin (0.0-0.2) mg/dL Indirect Bilirubin (0.0-1.2) mg/dL AST (13-39) Units/L ALT (7-52) Units/L Alkaline Phosphatase (34-104) Units/L Troponin I (< 0.04) ng/mL Serum Total Protein (6.4-8.9) g/dL Albumin (3.5-5.7) g/dL Globulin (2.4-3.5) g/dL Albumin/Globulin Ratio (1.1-2.2) Urine Color (Yellow) Urine Clarity (Clear) Urine pH (5.0-8.0) pH Units Ur Specific [place] (1.010-1.025) Urine Protein (Neg-Trace) mg/dL Urine Glucose (UA) (Normal) mg/dL Urine Ketones (Negative) mg/dL Urine Blood (Negative) Urine Nitrite (Negative) Urine Bilirubin (Negative) Urine Urobilinogen (Normal) mg/dL Ur Leukocyte Esterase (Negative) Urine Microscopic RBC (0-3) per hpf Urine Microscopic WBC (0-3) per hpf Ur Squamous Epith Cells (None-Few) per lpf Ur Transition Epith Cell (None-Few) per hpf Urine Bacteria (None-Few) per hpf Hyaline Casts (None-Few) per lpf Ur Culture Indicated? (NO) - Radiology Data Radiology results reviewed: Yes I reviewed the patient's radiology results. Head CT 05/14/18 01:29 IMPRESSION: Progressive atrophy and microvascular ischemic changes. No acute intracranial hemorrhage or global mass effect. No evidence of a intracranial abscess. D/ / Terrence Anderson MD / Terrence Anderson MD Interpreting Provider: Terrence Anderson MD Chest X-Ray 05/14/18 02:54 IMPRESSION: 1. Endotracheal tube 3 cm above the anu. 2. Right CVC tip in the distal superior vena cava with no pneumothorax. 3. Progressive bilateral asymmetric pulmonary opacities which may represent developing edema or multifocal pneumonia. D/ / Terrence Anderson MD / Terrence Anderson MD Interpreting Provider: Terrence Anderson MD Abdomen/Pelvis CT 05/14/18 03:44 IMPRESSION: 1. Interval improvement of bilateral pleural effusions which are not trace. 2. Bilateral lower lobe bronchial opacification with lower lobe consolidation and multifocal upper lobe bronchiolitis. This may represent aspiration pneumonitis. 3. Postsurgical change with adhesions and no evidence of bowel obstruction, perforation, or abscess. 4. Interval resolution of ascites. 5. Redemonstration of cholelithiasis with no evidence of acute cholecystitis or biliary obstruction. D/ / Terrence Anderson MD / Terrence Anderson MD Interpreting Provider: Terrence Anderson MD Chest CT 05/14/18 03:44 IMPRESSION: 1. Interval improvement of bilateral pleural effusions which are not trace. 2. Bilateral lower lobe bronchial opacification with lower lobe consolidation and multifocal upper lobe bronchiolitis. This may represent aspiration pneumonitis. 3. Postsurgical change with adhesions and no evidence of bowel obstruction, perforation, or abscess. 4. Interval resolution of ascites. 5. Redemonstration of cholelithiasis with no evidence of acute cholecystitis or biliary obstruction. D/ / Terrence Anderson MD / Terrence Anderson MD Interpreting Provider: Terrence Anderson MD - EKG Data EKG #1 EKG attestation: Yes I reviewed and interpreted this EKG. EKG results narrative: EKG demonstrates sinus tachycardia with a rate of 104. Normal axis. Normal intervals. Normal R-wave progression. ST depression in leads V2 through V5. No gross ST elevations. Changes from prior EKG include ST depression. S.B.A.R. - S.B.A.R. Situation: Demographics, MOA Background: Presenting Complaint, Relevant PMH, Meds, & Allergies Assessment: Vital Signs, Course and respsone to treatment, Exam Concerns, Patient/Family Expectation, Pertinant Lab Results Recommendation: Barrier(s) to disposition, Recommendation based on pending studies, treatments, or consults S.B.A.R. Report Given to: Dr. Oliva S.B.A.RSid Repor Time: 06:04 Sepsis Event Note - Evaluation Current Stage of Sepsis: septic shock Possible Source of Sepsis: GI tract/intra-abdominal - Focused Exam Date of Encounter: 05/14/18 Time of Encounter: 03:54 Vital Signs: Vital Signs Temp Pulse Resp BP Pulse Ox 05/14/18 05:42 92 24 91/68 96 05/14/18 05:39 24 97 05/14/18 05:36 91 24 73/55 95 05/14/18 05:19 99 20 81/43 95 05/14/18 04:10 98 23 86/43 93 05/14/18 03:34 18 96 05/14/18 02:44 116 14 98/54 97 05/14/18 02:37 117 18 86/47 98 05/14/18 01:56 102 48 83/51 82 05/14/18 01:20 98.6 F 107 40 73/51 85 Respiratory Exam: Present: decreased breath sounds Cardiovascular Exam: Present: tachycardia Capillary Refill: > 2 seconds Peripheral Pulse Strength: 1+ faint Peripheral Pulse Location: Radial Skin Exam: pale - Bedside Monitoring Bedside Ultrasound Performed: No Passive Leg raise/fluid bolus: not performed
[2018-05-14 02:00] LABS: ABG Base Excess -14 mEq/L (-2 to 3); ABG HCO3 12 mEq/L (21-27); ABG Oxygen Saturation 88 % (95-98); ABG PCO2 27 mmHg (35-45); ABG PH 7.24 pH Units (7.32-7.45); ABG PO2 63 mmHg (85-104); ABG TCO2 12 mEq/L (20-26)
[2018-05-14] MEDS ORDERED: *HR* EPINEPHrine 1 MG/10 ML SYRINGE ONE (02:00)
[2018-05-14] MEDS ORDERED: *HR* Rocuronium Bromide 50 MG/5 ML VIAL IVP ONE (02:09)
[2018-05-14] MEDS ORDERED: *HR* Etomidate 40 MG/20 ML VIAL IVP ONE (02:09)
[2018-05-14] MEDS ORDERED: 0.9 % Sodium Chloride 1,000 ML ONE (02:15)
[2018-05-14 02:31] LABS: Clarity,Urine Cloudy (Clear); Color,Urine Dark Yellow (Yellow); Glucose,Urine (UA) Normal (Normal)
[2018-05-14 02:32] LABS: Bilirubin,Urine Small (Negative); Blood,Urine Negative (Negative); Ketones,Urine Negative (Negative); Leukocyte Esterase,Urine Large (Negative); Nitrite,Urine Negative (Negative); PH,Urine 7.5 pH Units (5.0-8.0); Protein,Urine 30 mg/dL (Neg-Trace); Specific Gravity,Urine 1.021 (1.010-1.025); Urobilinogen,Urine Normal (Normal)
[2018-05-14 02:33] LABS: Bacteria,Urine Moderate per hpf (None-Few); Hyaline Casts,Urine Few per lpf (None-Few); Squamous Epithelial Cell,Urine Moderate per lpf (None-Few); Transitional Epi Cells,Urine Few per hpf (None-Few); WBC,Urine 15-30 per hpf (0-3)
[2018-05-14] MEDS: Norepinephrine 4 MG in D5% in Water 250 ML IVC SCH ×6 (02:48→20:07)
--- NOTE | 2018-05-14 03:27 | Emergency Department Note ---
Disposition Clinical Impression: Acute respiratory failure with hypoxia, Lactic acidosis, Healthcare-associated pneumonia, Hypernatremia, Encephalopathy, Acute renal failure, Elevated troponin , Septic shock Disposition: Admitted As Inpatient Condition: Critical General Adult HPI - General Chief complaint: ED General Medical Stated complaint: General Time Seen by Provider: 05/14/18 01:27 Source: EMS Mode of arrival: EMS Limitations: altered mental status - History of Present Illness HPI Narrative: This is a procedure note. Please see completed H&P Dr. Grant Pain Scale: 8 Improves with: nothing Worsens with: nothing Treatments Prior to Arrival: none - Related Data Home Medications Medication Instructions Recorded Confirmed Aspirin [Lo-Dose Aspirin EC] 81 mg PO DAILY 04/18/18 05/14/18 Citalopram [CeleXA] 30 mg PO DAILY 04/18/18 05/14/18 Donepezil HCl [Aricept] 10 mg PO HS 04/18/18 05/14/18 Levothyroxine [Synthroid] 100 mcg PO DAILY 04/18/18 05/14/18 Simvastatin [Zocor] 20 mg PO DAILY 04/18/18 05/14/18 Amlodipine Besylate 10 mg PO DAILY 05/14/18 05/14/18 Hydrocodone/Acetaminophen 15 ml PO Q8H PRN 05/14/18 05/14/18 [Hydrocodon-Acetamin 7.5-325/15] LORazepam Oral Conc [Ativan Oral 1 mg SL Q8H PRN 05/14/18 05/14/18 Conc] Previous Rx's Medication Instructions Recorded Cholecalciferol (D-3) [Vitamin D] 1,000 unit PO DAILY tablet 05/10/18 Multivit/Ca/Min/Fe/FA [Thera M 1 tab PO DAILY tablet 05/10/18 Plus] Tamsulosin [Flomax] 0.4 mg PO DAILY capsule 05/10/18 traZODone [TraZODone] 50 mg PO HS tablet 05/10/18 Allergies Allergy/AdvReac Type Severity Reaction Status Date / Time No Known Allergies Allergy Verified 04/20/17 08:49 Past Medical History - Past Medical History Medical history: Reports: hyperlipidemia, hypertension, thyroid disease, venous stasis, other Surgical history: Reports: no surgical history Psychiatric history: Reports: other - Social History Smoking Status: Never smoker Smokeless Tobacco Status: No Alcohol use: Reports: none Drug use: Reports: none Physical Exam - General Limitations: altered mental status General appearance: lethargic Course Vital Signs Temperature 98.6 F 05/14/18 01:20 Pulse Rate 107 05/14/18 01:20 Respiratory Rate 40 05/14/18 01:20 Blood Pressure 73/51 05/14/18 01:20 O2 Sat by Pulse Oximetry 85 05/14/18 01:20 Temperature 97.6 F 05/14/18 20:00 Pulse Rate 75 05/14/18 20:13 Respiratory Rate 21 05/14/18 20:02 Blood Pressure 77/28 05/14/18 20:02 O2 Sat by Pulse Oximetry 100 05/14/18 20:02 Oxygen Delivery Oxygen Delivery Ventilator Procedures - Central Line Placement Right IJ Central Line Inserted*: Yes Central Line Catheter Replacement*: No Central Line Insertion: emergent Consent Obtained: verbal consent (per patient's daughter) Patient Placed on Monitor/Pulse Ox: Yes During the Procedure: clinician is wearing sterile gloves, cap, mask,& gown during insertion, sterile field and sterile technique are maintained, patient's face is covered with drape or mask and wearing a cap, everyone in room is wearing a mask Central Line Prep: Chlorhexidine scrub, sterile drapes applied Prep the Procedure Site: apply chloraprep to the skin using a back and forth scrubbing motion, allow prep to dry, drape the patient with a full body drape Local Anesthetic: lidocaine 1% Ultrasound Used for Placement: Yes Central Line Lumen Inserted: triple Post Procedure: sutured in place, good blood return, all ports aspirated, flushed, capped, sterile dressing applied, guide wire removed and visualized Post Procedure X-Ray: tip of catheter in good position, no pneumothorax seen Patient Tolerated Procedure: no complications Complications: none Name of Clinician Inserting Central Line: Dr. Godwin - Intubation Time out performed: No sedative: Etomidate Mg Given: 20 paralytic: Rocuronium Mg Given: 100 Laryngoscope: Mark ET Tube Size: 7.5 ET Tube Uncuffed: No Tube Secured Depth (cm): 22 Tube Secured Location: lips Tube Placement Confirmation: visualized tube passing through cords, equal breath sounds bilaterally, no breath sounds over epigastrium, confirmation by capnometry Patient Tolerated Procedure: no complications Intubation Complications: none Medical Decision Making - MDM Narrative Medical decision making narrative: Procedure note only. Please see completed note by Dr. Grant - Lab Data Result diagrams: 05/14/18 06:57 05/14/18 06:57 Lab Results 05/14/18 05/14/18 05/14/18 Range/Units 01:56 02:06 02:57 WBC (4.3-11.1) K/mcL RBC (3.82-4.97) M/mcL Hgb (11.5-15.4) g/dL Hct (35.3-44.9) % MCV (83.0-100.0) fL MCH (28.0-33.3) pg MCHC (31.6-35.5) g/dL RDW (11.5-14.5) % Plt Count (140-400) K/mcL MPV (9.4-12.4) fL Immature Gran % (0-4) % Seg Neutrophils % % Lymphocytes % % Monocytes % % Eosinophils % % Basophils % % Neutrophils # (1.6-8.9) K/mcL Lymphocytes # (0.6-4.6) K/mcL Monocytes # (0.0-1.3) K/mcL Eosinophils # (0.0-0.6) K/mcL Basophils # (0.0-0.2) K/mcL Nucleated RBCs/100 WBC (0) /100 WBC Platelet Estimate (Normal) Polychromasia (Not Present) Sample Site R Radial ABG pH 7.24 L (7.32-7.45) pH Units ABG pCO2 27 L (35-45) mmHg ABG pO2 63 L (85-104) mmHg ABG HCO3 12 L (21-27) mEq/L ABG Total CO2 12 L (20-26) mEq/L ABG O2 Saturation 88 L (95-98) % ABG Base Excess -14 L (-2 to 3) mEq/L Chad Test Positive Respiration Rate O2 Delivery Device NRB Blood Gas Modality Inspired O2 100.0 (1-15=lpm [id number]=%) Tidal Volume cc PEEP cm H2O Sodium 171 H* (136-145) mEq/L Potassium 2.8 L (3.5-5.1) mEq/L Chloride 141 H (98-107) mEq/L Carbon Dioxide 12 L (23-29) mEq/L BUN 93 H (8-23) mg/dL Creatinine 6.46 H (0.60-1.20) mg/dL Est GFR ( Amer) 8 L (> 60) Est GFR (Non-Af Amer) 6 L (> 60) BUN/Creatinine Ratio 14 (6-26) Glucose 123 H (70-105) mg/dL Calculated Osmolality 382 H (280-300) Lactic Acid (0.5-2.2) mmol/L Calcium 7.6 L (8.6-10.3) mg/dL Phosphorus 5.4 H (2.7-4.5) mg/dL Magnesium 2.1 (1.6-2.6) mg/dL Total Bilirubin 0.6 (0.3-1.0) mg/dL Direct Bilirubin 0.3 H (0.0-0.2) mg/dL Indirect Bilirubin 0.3 (0.0-1.2) mg/dL AST 45 H (13-39) Units/L ALT 42 (7-52) Units/L Alkaline Phosphatase 60 (34-104) Units/L Troponin I 0.07 H* (< 0.04) ng/mL Serum Total Protein 5.9 L (6.4-8.9) g/dL Albumin 2.6 L (3.5-5.7) g/dL Globulin 3.3 (2.4-3.5) g/dL Albumin/Globulin Ratio 0.8 L (1.1-2.2) Urine Color Dark Yellow (Yellow) Urine Clarity Cloudy A (Clear) Urine pH 7.5 (5.0-8.0) pH Units Ur Specific [place] 1.021 (1.010-1.025) Urine Protein 30 H (Neg-Trace) mg/dL Urine Glucose (UA) Normal (Normal) mg/dL Urine Ketones Negative (Negative) mg/dL Urine Blood Negative (Negative) Urine Nitrite Negative (Negative) Urine Bilirubin Small H (Negative) Urine Urobilinogen Normal (Normal) mg/dL Ur Leukocyte Esterase Large H (Negative) Urine Microscopic RBC 3-5 H (0-3) per hpf Urine Microscopic WBC 15-30 H (0-3) per hpf Ur Squamous Epith Cells Moderate H (None-Few) per lpf Ur Transition Epith Cell Few (None-Few) per hpf Urine Bacteria Moderate H (None-Few) per hpf Hyaline Casts Few (None-Few) per lpf Ur Culture Indicated? YES A (NO) 05/14/18 05/14/18 05/14/18 Range/Units 02:57 03:25 03:26 WBC 17.8 H (4.3-11.1) K/mcL RBC 3.89 (3.82-4.97) M/mcL Hgb 11.2 L (11.5-15.4) g/dL Hct 37.7 (35.3-44.9) % MCV 96.9 D (83.0-100.0) fL MCH 28.8 (28.0-33.3) pg MCHC 29.7 L (31.6-35.5) g/dL RDW 18.7 H (11.5-14.5) % Plt Count 247 (140-400) K/mcL MPV 11.3 (9.4-12.4) fL Immature Gran % 1.3 (0-4) % Seg Neutrophils % 90.4 % Lymphocytes % 5.1 % Monocytes % 2.6 % Eosinophils % 0.4 % Basophils % 0.2 % Neutrophils # 16.1 H (1.6-8.9) K/mcL Lymphocytes # 0.9 (0.6-4.6) K/mcL Monocytes # 0.5 (0.0-1.3) K/mcL Eosinophils # 0.1 (0.0-0.6) K/mcL Basophils # 0.0 (0.0-0.2) K/mcL Nucleated RBCs/100 WBC 2.4 H (0) /100 WBC Platelet Estimate Normal (Normal) Polychromasia 1+ A (Not Present) Sample Site R Radial ABG pH 7.07 L* D (7.32-7.45) pH Units ABG pCO2 50 H D (35-45) mmHg ABG pO2 107 H D (85-104) mmHg ABG HCO3 15 L (21-27) mEq/L ABG Total CO2 16 L (20-26) mEq/L ABG O2 Saturation 95 (95-98) % ABG Base Excess -15 L (-2 to 3) mEq/L Chad Test Positive Respiration Rate 14 O2 Delivery Device Adult Vent Blood Gas Modality ASSIST CONTROL Inspired O2 100.0 (1-15=lpm [id number]=%) Tidal Volume 400 cc PEEP 5 cm H2O Sodium (136-145) mEq/L Potassium (3.5-5.1) mEq/L Chloride (98-107) mEq/L Carbon Dioxide (23-29) mEq/L BUN (8-23) mg/dL Creatinine (0.60-1.20) mg/dL Est GFR ( Amer) (> 60) Est GFR (Non-Af Amer) (> 60) BUN/Creatinine Ratio (6-26) Glucose (70-105) mg/dL Calculated Osmolality (280-300) Lactic Acid 7.5 H* (0.5-2.2) mmol/L Calcium (8.6-10.3) mg/dL Phosphorus (2.7-4.5) mg/dL Magnesium (1.6-2.6) mg/dL Total Bilirubin (0.3-1.0) mg/dL Direct Bilirubin (0.0-0.2) mg/dL Indirect Bilirubin (0.0-1.2) mg/dL AST (13-39) Units/L ALT (7-52) Units/L Alkaline Phosphatase (34-104) Units/L Troponin I (< 0.04) ng/mL Serum Total Protein (6.4-8.9) g/dL Albumin (3.5-5.7) g/dL Globulin (2.4-3.5) g/dL Albumin/Globulin Ratio (1.1-2.2) Urine Color (Yellow) Urine Clarity (Clear) Urine pH (5.0-8.0) pH Units Ur Specific [place] (1.010-1.025) Urine Protein (Neg-Trace) mg/dL Urine Glucose (UA) (Normal) mg/dL Urine Ketones (Negative) mg/dL Urine Blood (Negative) Urine Nitrite (Negative) Urine Bilirubin (Negative) Urine Urobilinogen (Normal) mg/dL Ur Leukocyte Esterase (Negative) Urine Microscopic RBC (0-3) per hpf Urine Microscopic WBC (0-3) per hpf Ur Squamous Epith Cells (None-Few) per lpf Ur Transition Epith Cell (None-Few) per hpf Urine Bacteria (None-Few) per hpf Hyaline Casts (None-Few) per lpf Ur Culture Indicated? (NO) 05/14/18 05/14/18 Range/Units 03:48 04:19 WBC (4.3-11.1) K/mcL RBC (3.82-4.97) M/mcL Hgb (11.5-15.4) g/dL Hct (35.3-44.9) % MCV (83.0-100.0) fL MCH (28.0-33.3) pg MCHC (31.6-35.5) g/dL RDW (11.5-14.5) % Plt Count (140-400) K/mcL MPV (9.4-12.4) fL Immature Gran % (0-4) % Seg Neutrophils % % Lymphocytes % % Monocytes % % Eosinophils % % Basophils % % Neutrophils # (1.6-8.9) K/mcL Lymphocytes # (0.6-4.6) K/mcL Monocytes # (0.0-1.3) K/mcL Eosinophils # (0.0-0.6) K/mcL Basophils # (0.0-0.2) K/mcL Nucleated RBCs/100 WBC (0) /100 WBC Platelet Estimate (Normal) Polychromasia (Not Present) Sample Site R Radial ABG pH 7.29 L D (7.32-7.45) pH Units ABG pCO2 35 (35-45) mmHg ABG pO2 82 L (85-104) mmHg ABG HCO3 17 L (21-27) mEq/L ABG Total CO2 18 L (20-26) mEq/L ABG O2 Saturation 95 (95-98) % ABG Base Excess -9 L (-2 to 3) mEq/L Chad Test Positive Respiration Rate 24 O2 Delivery Device Adult Vent Blood Gas Modality ASSIST CONTROL Inspired O2 100.0 (1-15=lpm [id number]=%) Tidal Volume 450 cc PEEP 5 cm H2O Sodium 173 H* (136-145) mEq/L Potassium 3.1 L (3.5-5.1) mEq/L Chloride 137 H (98-107) mEq/L Carbon Dioxide 17 L (23-29) mEq/L BUN 93 H (8-23) mg/dL Creatinine 6.70 H (0.60-1.20) mg/dL Est GFR ( Amer) 7 L (> 60) Est GFR (Non-Af Amer) 6 L (> 60) BUN/Creatinine Ratio 14 (6-26) Glucose 138 H (70-105) mg/dL Calculated Osmolality 387 H (280-300) Lactic Acid (0.5-2.2) mmol/L Calcium 8.1 L (8.6-10.3) mg/dL Phosphorus (2.7-4.5) mg/dL Magnesium (1.6-2.6) mg/dL Total Bilirubin (0.3-1.0) mg/dL Direct Bilirubin (0.0-0.2) mg/dL Indirect Bilirubin (0.0-1.2) mg/dL AST (13-39) Units/L ALT (7-52) Units/L Alkaline Phosphatase (34-104) Units/L Troponin I (< 0.04) ng/mL Serum Total Protein (6.4-8.9) g/dL Albumin (3.5-5.7) g/dL Globulin (2.4-3.5) g/dL Albumin/Globulin Ratio (1.1-2.2) Urine Color (Yellow) Urine Clarity (Clear) Urine pH (5.0-8.0) pH Units Ur Specific [place] (1.010-1.025) Urine Protein (Neg-Trace) mg/dL Urine Glucose (UA) (Normal) mg/dL Urine Ketones (Negative) mg/dL Urine Blood (Negative) Urine Nitrite (Negative) Urine Bilirubin (Negative) Urine Urobilinogen (Normal) mg/dL Ur Leukocyte Esterase (Negative) Urine Microscopic RBC (0-3) per hpf Urine Microscopic WBC (0-3) per hpf Ur Squamous Epith Cells (None-Few) per lpf Ur Transition Epith Cell (None-Few) per hpf Urine Bacteria (None-Few) per hpf Hyaline Casts (None-Few) per lpf Ur Culture Indicated? (NO)
[2018-05-14] MEDS ORDERED: Sodium Bicarbonate 50 MEQ/50 ML VIAL IVP ONE (03:34)
[2018-05-14 03:35] LABS: ABG Base Excess -15 mEq/L (-2 to 3); ABG HCO3 15 mEq/L (21-27); ABG Oxygen Saturation 95 % (95-98); ABG PCO2 50 mmHg (35-45); ABG PH 7.07 pH Units (7.32-7.45); ABG PO2 107 mmHg (85-104); ABG TCO2 16 mEq/L (20-26); Blood Gas Modality ASSIST CONTROL; Blood Gas PEEP 5 cm H2O; Blood Gas Respiration Rate 14; Blood Gas VT 400 cc
[2018-05-14 03:39] LABS: Albumin 2.6 g/dL (3.5-5.7); Albumin/Globulin Ratio 0.8 (1.1-2.2); Bilirubin,Direct 0.3 mg/dL (0.0-0.2); Bilirubin,Indirect 0.3 mg/dL (0.0-1.2); Bilirubin,Total 0.6 mg/dL (0.3-1.0); Calcium 7.6 mg/dL (8.6-10.3); Globulin 3.3 g/dL (2.4-3.5); Magnesium 2.1 mg/dL (1.6-2.6); Phosphorous 5.4 mg/dL (2.7-4.5); Potassium 2.8 mEq/L (3.5-5.1); Total Protein 5.9 g/dL (6.4-8.9); Troponin I 0.07 ng/mL (< 0.04)
[2018-05-14 03:45] LABS: Basophils % 0.2 %; Eosinophils # 0.1 K/mcL (0.0-0.6); Eosinophils % 0.4 %; Hematocrit 37.7 % (35.3-44.9); Hemoglobin 11.2 g/dL (11.5-15.4); Immature Granulocytes % 1.3 % (0-4); Lymphocytes # 0.9 K/mcL (0.6-4.6); Lymphocytes % 5.1 %; Mean Corpuscular HGB Conc 29.7 g/dL (31.6-35.5); Mean Corpuscular Hemoglobin 28.8 pg (28.0-33.3); Mean Platelet Volume 11.3 fL (9.4-12.4); Monocytes # 0.5 K/mcL (0.0-1.3); Monocytes % 2.6 %; Neutrophils # 16.1 K/mcL (1.6-8.9); Nucleated Red Blood Cells 2.4 /100 WBC (0); Platelet Count 247 K/mcL (140-400); Red Blood Count 3.89 M/mcL (3.82-4.97); Red Cell Distribution Width 18.7 % (11.5-14.5); Segmented Neutrophils % 90.4 %
[2018-05-14 03:48] LABS: Mean Corpuscular Volume 96.9 fL (83.0-100.0)
[2018-05-14] MEDS ORDERED: Piperacillin/Tazobactam 3.375 GM in 0.9 % Sodium Chloride Mini Bag 100 ML IVPB ONE (03:52)
[2018-05-14] MEDS: Vasopressin 40 UNIT in D5% in Water 100 ML IV SCH ×2 (04:10→23:21)
[2018-05-14 04:20] LABS: Calcium 8.1 mg/dL (8.6-10.3); Potassium 3.1 mEq/L (3.5-5.1)
[2018-05-14 04:23] LABS: ABG Base Excess -9 mEq/L (-2 to 3); ABG HCO3 17 mEq/L (21-27); ABG Oxygen Saturation 95 % (95-98); ABG PCO2 35 mmHg (35-45); ABG PH 7.29 pH Units (7.32-7.45); ABG PO2 82 mmHg (85-104); ABG TCO2 18 mEq/L (20-26); Blood Gas Modality ASSIST CONTROL; Blood Gas PEEP 5 cm H2O; Blood Gas Respiration Rate 24; Blood Gas VT 450 cc
[2018-05-14 04:27] LABS: Platelet Estimate Normal (Normal); Polychromasia 1+ (Not Present)
[2018-05-14] MEDS ORDERED: Hydrocortisone Sodium Succ 100 MG/2 ML VIAL IVP ONE (05:49)
[2018-05-14] MEDS ORDERED: MetroNIDAZOLE 500 MG/100 ML 500 MG/100 ML BAG IVPB ONE (05:53)
[2018-05-14] MEDS ORDERED: Naloxone 0.4 MG/ML INJ IVP PRN (06:50)
[2018-05-14] MEDS ORDERED: Lacri-Lube 3.5 GM TUBE BOTH EYES PRN (06:50)
--- NOTE | 2018-05-14 07:09 | Pulmonology History & Physical ---
<Ash Vargas - Last Filed: 05/14/18 11:11> Date of Encounter: 05/14/18 Time of Encounter: 07:09 Assessment and Plan (1) Dehydration Current visit: Yes Status: Acute Patient in the emergency department did get 3 L of IV fluids of normal saline. Patient did have hypernatremia with a sodium level of 173. Patient had a total body water deficit of 7.1 based on calculations. We will slowly normalize the sodium with this can be done by giving more fluids. This patient does seem to still be dehydrated. We will give one more liter of fluids here in the ICU. Then will give patient half of the total body water deficit today and the rest tomorrow. Of the 3.5 L given today half will be through the OG tube and the other half will be through IV using D5W. We will continue getting BMPs. This is also helping patient's lactic acidosis is very given IV fluids patient also has a acidosis, respiratory and metabolic component as well as a metabolic alkalosis secondary to contraction alkalosis. Patient did have a head CT done which did show no acute abnormalities. Chest CT also showed improvement of bilateral pleural effusions and possibly aspiration pneumonitis. Patient is going to be treated with Zosyn for possible pneumonia. 1 L IV bolus normal saline 1.5 L D5W IV 1.5 L free water OG Tomorrow plan for 3 more liters IV fluid to help with total body water deficit In the ER they did speak with family about CODE STATUS we also did a here in the ICU. Family is still adamant they cannot make the decision to not do everything so patient's CODE STATUS is still full code. We did tell template family to think about it as patient'sis very poor due to patient's illness and multiorgan failure. (2) Acute respiratory failure with hypoxia Current visit: Yes Status: Acute Patient did have respiratory failure she was sedated with etomidate and rocuronium and intubated in the emergency department placed on the ventilator. Patient was initially acidotic and worsening patient's rate was increased to approximately 20 patient's acidosis did help with that. We did x-ray a few ventilator changes to make patient's pH more regular we are still continue to get daily ABGs to monitor. Patient has not had to be sedated at this time but in case patient does need sedation Precedex is ordered. This most likely is secondary to encephalopathy due to hypernatremia and patient's acidosis. Ventilator management with ventilator bundle. Including GI prophylaxis Precedex ordered in case she needs it for sedation (3) Acute renal failure Current visit: Yes Status: Acute Patient does have worsening acute kidney injury with a creatinine of 6.4. This most likely secondary to dehydration. This should normalize as we continued to IV hydrate. Continue to monitor daily CMP creatinine's Qualifiers: Acute renal failure type: unspecified Qualified Code(s): N17.9 - Acute kidney failure, unspecified (4) Lactic acidosis Current visit: Yes Status: Acute (5) Hypernatremia Current visit: Yes Status: Acute Patient does have hypernatremia of 173. Patient does have a total body water deficit of 7. This is most likely secondary dehydration. We will rehydrate the patient which should help with patient's hypernatremia we do not want to due to facet patient will have history of brittle edema. So we will give half the water deficit today and the other half tomorrow. This will be done using D5W as well as free water through the OG tube. See plan above Start patient on electrolyte protocol (6) Healthcare-associated pneumonia Current visit: Yes Status: Acute Patient most likely has hospital acquired pneumonia as patient has been in a senior care as well as hospitalized recently. Patient was given vancomycin and Zosyn. Due to patient's acute kidney injury will hold off on giving vancomycin at this time as I think this is most likely all secondary dehydration. We will continue the patient with daily Zosyn antibiotics. Blood cultures are pending. Day 1 Zosyn (7) Status post Sunny's procedure Current visit: No Status: Acute Patient does have colostomy. This does not seem to be an abdominal pathology causing patient's issues today. CT abdomen and pelvis was done which shows no signs of obstruction, perforation or abscess. Or any acute pathology. (8) DVT prophylaxis Current visit: No Status: Acute Heparin subcutaneous twice a day History of Present Illness Chief complaint: Altered mental status HPI: Ms. Stinson is a 78 year old female who presented from nursing facility for concern for aspiration. Patient does have medical history including hyperlipidemia, hypertension, thyroid disease, venous stasis, depression, status post 1 month from Torrez's procedure sigmoidectomy with diverting colostomy done by Dr. Hernandez. Patient was discharged from the hospital approximately 2 weeks ago went to a nursing facility. Their family said over the last week she been doing better where she seemed to be [place] active the patient was still confused. Family reports that prior to Wednesday patient was not unresponsive like she was not she came to the emergency department. She does have baseline dementia however she is alert open's her eyes spontaneously she usually takes things by mouth but they are unable to eat for the last 2 days. In the emergency department patient was intubated and a central line was placed due to GCS less than 8 as well as hypotension patient was started on 2 vasopressors including vasopressin and levo fed. Patient did not have to be sedated. Patient was intubated using etomidate and rocuronium. Patient did show to have a metabolic acidosis as well as a respiratory acidosis. Patient seems to be dehydrated. Patient also is hypernatremic at 173 total body water deficit is 6.8 L Past Med Surg Social Fam HX - Past Medical History Medical history: hyperlipidemia, hypertension, thyroid disease, venous stasis, other Psychiatric history: other - Past Surgical History Surgical History: no surgical history - Social History Smoking Status: Never smoker Smokeless Tobacco Status: No Alcohol use: none Drug use: none Medications and Allergies Aspirin [Lo-Dose Aspirin EC] 81 mg PO DAILY 04/18/18 [History] Citalopram [CeleXA] 30 mg PO DAILY 04/18/18 [History] Donepezil HCl [Aricept] 10 mg PO HS 04/18/18 [History] Levothyroxine [Synthroid] 100 mcg PO DAILY 04/18/18 [History] Simvastatin [Zocor] 20 mg PO DAILY 04/18/18 [History] Cholecalciferol (D-3) [Vitamin D] 1,000 unit PO DAILY tablet 05/10/18 [Rx] HYDROcodone/Acet 5-217 mg/10mL [Lortab Elixir] 10 ml PO Q12H PRN 3 Days #60 ml 05/10/18 [Rx] LORazepam Oral Conc [Ativan Oral Conc] 1 mg SL Q12H PRN 3 Days #6 mg 05/10/18 [ Rx] Multivit/Ca/Min/Fe/FA [Thera M Plus] 1 tab PO DAILY tablet 05/10/18 [Rx] Tamsulosin [Flomax] 0.4 mg PO DAILY capsule 05/10/18 [Rx] amLODIPine [Norvasc] 10 mg PO DAILY tablet 05/10/18 [Rx] traZODone [TraZODone] 50 mg PO HS tablet 05/10/18 [Rx] 3 Allergy/AdvReac Type Severity Reaction Status Date / Time No Known Allergies Allergy Verified 04/20/17 08:49 ROS unobtainable: due to endotracheal tube, due to mental status All Systems: The remainder of the systems were reviewed and are negative Physical Examination Vital Signs: Vital Signs, Last 4 Hours Pulse Resp BP Pulse Ox 05/14/18 06:29 92 24 102/67 95 General appearance: no acute distress, other (Somnolent not able to follow commands and intubated. Patient is not sedated when I evaluated her) Eyes: nonicteric ENT: oropharynx moist Neck: supple Effort: normal Inspection: normal Auscultation: bilateral: rhonchi Cardiovascular: regular rate and rhythm Gastrointestinal: normoactive bowel sounds, soft, non-tender, non-distended Extremities: no cyanosis, no edema, no clubbing Musculoskeletal: no deformities, ROM normal non-focal exam, pupils equal and round Results - Laboratory Findings CBC and BMP: 05/14/18 06:57 05/14/18 06:57 ABG ABG pH 7.29 pH Units (7.32-7.45) L D 05/14/18 04:19 ABG pCO2 35 mmHg (35-45) 05/14/18 04:19 ABG pO2 82 mmHg (85-104) L 05/14/18 04:19 ABG O2 Saturation 95 % (95-98) 05/14/18 04:19 Abnormal lab findings: Abnormal lab results WBC 17.8 K/mcL (4.3-11.1) H 05/14/18 03:26 Hgb 11.2 g/dL (11.5-15.4) L 05/14/18 03:26 MCHC 29.7 g/dL (31.6-35.5) L 05/14/18 03:26 RDW 18.7 % (11.5-14.5) H 05/14/18 03:26 Neutrophils # 16.1 K/mcL (1.6-8.9) H 05/14/18 03:26 Nucleated RBCs/100 WBC 2.4 /100 WBC (0) H 05/14/18 03:26 Polychromasia 1+ (Not Present) A 05/14/18 03:26 ABG pH 7.29 pH Units (7.32-7.45) L D 05/14/18 04:19 ABG pO2 82 mmHg (85-104) L 05/14/18 04:19 ABG HCO3 17 mEq/L (21-27) L 05/14/18 04:19 ABG Total CO2 18 mEq/L (20-26) L 05/14/18 04:19 ABG Base Excess -9 mEq/L (-2 to 3) L 05/14/18 04:19 Sodium 173 mEq/L (136-145) H* 05/14/18 03:48 Potassium 3.1 mEq/L (3.5-5.1) L 05/14/18 03:48 Chloride 137 mEq/L (98-107) H 05/14/18 03:48 Carbon Dioxide 17 mEq/L (23-29) L 05/14/18 03:48 BUN 93 mg/dL (8-23) H 05/14/18 03:48 Creatinine 6.70 mg/dL (0.60-1.20) H 05/14/18 03:48 Est GFR ( Amer) 7 (> 60) L 05/14/18 03:48 Est GFR (Non-Af Amer) 6 (> 60) L 05/14/18 03:48 Glucose 138 mg/dL (70-105) H 05/14/18 03:48 POC Glucose 167 mg/dL (70-99) H 05/14/18 06:44 Calculated Osmolality 387 (280-300) H 05/14/18 03:48 Lactic Acid 7.5 mmol/L (0.5-2.2) H* 05/14/18 02:57 Calcium 8.1 mg/dL (8.6-10.3) L 05/14/18 03:48 Phosphorus 5.4 mg/dL (2.7-4.5) H 05/14/18 02:57 Direct Bilirubin 0.3 mg/dL (0.0-0.2) H 05/14/18 02:57 AST 45 Units/L (13-39) H 05/14/18 02:57 Troponin I 0.07 ng/mL (< 0.04) H* 05/14/18 02:57 Serum Total Protein 5.9 g/dL (6.4-8.9) L 05/14/18 02:57 Albumin 2.6 g/dL (3.5-5.7) L 05/14/18 02:57 Albumin/Globulin Ratio 0.8 (1.1-2.2) L 05/14/18 02:57 Urine Clarity Cloudy (Clear) A 05/14/18 02:06 Urine Protein 30 mg/dL (Neg-Trace) H 05/14/18 02:06 Urine Bilirubin Small (Negative) H 05/14/18 02:06 Ur Leukocyte Esterase Large (Negative) H 05/14/18 02:06 Urine Microscopic RBC 3-5 per hpf (0-3) H 05/14/18 02:06 Urine Microscopic WBC 15-30 per hpf (0-3) H 05/14/18 02:06 Ur Squamous Epith Cells Moderate per lpf (None-Few) H 05/14/18 02:06 Urine Bacteria Moderate per hpf (None-Few) H 05/14/18 02:06 Ur Culture Indicated? YES (NO) A 05/14/18 02:06 - Diagnostic Findings Chest x-ray: report reviewed, image reviewed CT scan - chest: report reviewed, image reviewed <Anurag Brown - Last Filed: 05/14/18 11:37> Date of Encounter: 05/14/18 History of Present Illness HPI: Ms. Stinson is a 78 year old female All Systems: The remainder of the systems were reviewed and are negative Physical Examination Vital Signs: Vital Signs, Last 4 Hours Pulse Resp BP Pulse Ox 05/14/18 11:00 75 25 95/65 95 05/14/18 10:00 80 18 108/49 93 05/14/18 09:33 18 108/64 92 05/14/18 09:00 93 18 97/58 92 05/14/18 08:00 92 12 120/57 94 05/14/18 07:47 24 93/72 90 Results - Laboratory Findings CBC and BMP: 05/14/18 06:57 05/14/18 06:57 ABG ABG pH 7.23 pH Units (7.32-7.45) L 05/14/18 10:27 ABG pCO2 36 mmHg (35-45) 05/14/18 10:27 ABG pO2 95 mmHg (85-104) 05/14/18 10:27 ABG O2 Saturation 96 % (95-98) 05/14/18 10:27 PT/INR, D-dimer PT 18.8 Seconds (9.4-12.1) H 05/14/18 06:51 Abnormal lab findings: Abnormal lab results WBC 18.3 K/mcL (4.3-11.1) H 05/14/18 06:57 RBC 3.71 M/mcL (3.82-4.97) L 05/14/18 06:57 Hgb 10.8 g/dL (11.5-15.4) L 05/14/18 06:57 MCHC 30.5 g/dL (31.6-35.5) L 05/14/18 06:57 RDW 18.7 % (11.5-14.5) H 05/14/18 06:57 Band Neutrophils % 10.0 % (0-4) H 05/14/18 06:57 Neutrophils # 13.9 K/mcL (1.6-8.9) H 05/14/18 06:57 Eosinophils # 0.7 K/mcL (0.0-0.6) H 05/14/18 06:57 Nucleated RBCs/100 WBC 1.6 /100 WBC (0) H 05/14/18 06:57 Polychromasia 1+ (Not Present) A 05/14/18 03:26 PT 18.8 Seconds (9.4-12.1) H 05/14/18 06:51 APTT 22.5 Seconds (26.0-36.0) L 05/14/18 06:51 ABG pH 7.23 pH Units (7.32-7.45) L 05/14/18 10:27 ABG HCO3 15 mEq/L (21-27) L 05/14/18 10:27 ABG Total CO2 16 mEq/L (20-26) L 05/14/18 10:27 ABG Base Excess -12 mEq/L (-2 to 3) L 05/14/18 10:27 Sodium 168 mEq/L (136-145) H* 05/14/18 06:57 Potassium 3.2 mEq/L (3.5-5.1) L 05/14/18 06:57 Chloride 136 mEq/L (98-107) H 05/14/18 06:57 Carbon Dioxide 16 mEq/L (23-29) L 05/14/18 06:57 BUN 91 mg/dL (8-23) H 05/14/18 06:57 Creatinine 6.16 mg/dL (0.60-1.20) H 05/14/18 06:57 Est GFR ( Amer) 8 (> 60) L 05/14/18 06:57 Est GFR (Non-Af Amer) 7 (> 60) L 05/14/18 06:57 Glucose 240 mg/dL (70-105) H 05/14/18 06:57 POC Glucose 167 mg/dL (70-99) H 05/14/18 06:44 Calculated Osmolality 382 (280-300) H 05/14/18 06:57 Lactic Acid 4.4 mmol/L (0.5-2.2) H* 05/14/18 06:51 Calcium 7.3 mg/dL (8.6-10.3) L 05/14/18 06:57 Phosphorus 5.4 mg/dL (2.7-4.5) H 05/14/18 02:57 Direct Bilirubin 0.3 mg/dL (0.0-0.2) H 05/14/18 02:57 AST 43 Units/L (13-39) H 05/14/18 06:57 Troponin I 0.07 ng/mL (< 0.04) H* 05/14/18 06:57 Serum Total Protein 5.6 g/dL (6.4-8.9) L 05/14/18 06:57 Albumin 2.4 g/dL (3.5-5.7) L 05/14/18 06:57 Albumin/Globulin Ratio 0.8 (1.1-2.2) L 05/14/18 06:57 Urine Clarity Cloudy (Clear) A 05/14/18 02:06 Urine Protein 30 mg/dL (Neg-Trace) H 05/14/18 02:06 Urine Bilirubin Small (Negative) H 05/14/18 02:06 Ur Leukocyte Esterase Large (Negative) H 05/14/18 02:06 Urine Microscopic RBC 3-5 per hpf (0-3) H 05/14/18 02:06 Urine Microscopic WBC 15-30 per hpf (0-3) H 05/14/18 02:06 Ur Squamous Epith Cells Moderate per lpf (None-Few) H 05/14/18 02:06 Urine Bacteria Moderate per hpf (None-Few) H 05/14/18 02:06 Ur Culture Indicated? YES (NO) A 05/14/18 02:06 - Attending Attestation I examined this patient and my medical decision-making was reviewed with the Resident Physician. I agree with the documented findings, disposition and treatment plan as described except to the extent set forth below. Patient seen and examined. Labs, radiology, chart personally reviewed. Agree with resident's history and physical, assessment, plan with following comments: [employer] [employer]: Patient does not follows commands, this is multifactorial, however I suspect predominantly metabolic in nature. Pulmonary: Patient with acute respiratory acidosis for hypercapnic and hypoxic respiratory failure and ventilator adjusted multiple times due to her abnormal ABGs. Cardiovascular: Patient is in shock which is multifactorial from hypovolemia and also component of septic shock. GI: Nutrition per dietary and GI prophylaxis per routine Heme: DVT prophylaxis per routine ID: Continue antibiotics and plan to de-escalation. Patient with septic shock and fluid resuscitation and also lactic acid to be followed with empiric antibiotics Renal; urine out put and renal funtion reviewed. Patient with severe hypernatremia and volume resuscitation was done and the cuff correlated deficit to freewater which is significant and will replace intravenously as well as with water. Endorcine: blood glucose is monitored Lines: all lines checked and no evidence of infections Skin: skin care to prevent pressure ulcers per nursing routine care Patient is critically ill and discussed with the family at the bedside with overall prognosis is poor and patient remain full code. I spent 45 min of Critical Care time with this patient. It involved decision making of high complexity to assess, manipulate, and support vital organ system failure and/or to prevent further life threatening deterioration of the patient' s condition. The time involved in the performance of separately reportable procedures was not counted toward critical care time.
[2018-05-14 07:12] LABS: Hematocrit 35.4 % (35.3-44.9); Hemoglobin 10.8 g/dL (11.5-15.4); Mean Corpuscular HGB Conc 30.5 g/dL (31.6-35.5); Mean Corpuscular Hemoglobin 29.1 pg (28.0-33.3); Mean Corpuscular Volume 95.4 fL (83.0-100.0); Mean Platelet Volume 11.5 fL (9.4-12.4); Nucleated Red Blood Cells 1.6 /100 WBC (0); Platelet Count 228 K/mcL (140-400); Red Blood Count 3.71 M/mcL (3.82-4.97); Red Cell Distribution Width 18.7 % (11.5-14.5)
[2018-05-14 07:24] LABS: INR 1.7; Prothrombin Time 18.8 Seconds (9.4-12.1)
[2018-05-14 07:26] LABS: Activated Partial Thrombo Time 22.5 Seconds (26.0-36.0)
[2018-05-14 07:49] LABS: Albumin 2.4 g/dL (3.5-5.7); Albumin/Globulin Ratio 0.8 (1.1-2.2); Bilirubin,Total 0.8 mg/dL (0.3-1.0); Calcium 7.3 mg/dL (8.6-10.3); Globulin 3.2 g/dL (2.4-3.5); Potassium 3.2 mEq/L (3.5-5.1); Total Protein 5.6 g/dL (6.4-8.9); Troponin I 0.07 ng/mL (< 0.04)
[2018-05-14] MEDS: Lacri-Lube 3.5 GM TUBE BOTH EYES SCH ×5 (08:31→23:02)
[2018-05-14] MEDS ORDERED: DEXTROSE 5 % IN WATER 50 ML PGGYBK.PRT IV ONE (08:31)
[2018-05-14] MEDS: Chlorhexidine Rinse 15 ML MOUTHWASH MM SCH ×2 (08:31→20:44)
[2018-05-14] MEDS: Pantoprazole 40 MG VIAL IVP SCH (08:31)
[2018-05-14 08:33] LABS: Eosinophils # 0.7 K/mcL (0.0-0.6); Lymphocytes # 3.3 K/mcL (0.6-4.6); Monocytes # 0.4 K/mcL (0.0-1.3); Neutrophils # 13.9 K/mcL (1.6-8.9); Platelet Estimate Normal (Normal)
[2018-05-14 08:46] LABS: ABG Base Excess -11 mEq/L (-2 to 3); ABG HCO3 18 mEq/L (21-27); ABG Oxygen Saturation 95 % (95-98); ABG PCO2 51 mmHg (35-45); ABG PH 7.14 pH Units (7.32-7.45); ABG PO2 101 mmHg (85-104); ABG TCO2 19 mEq/L (20-26); Blood Gas Modality ASSIST CONTROL; Blood Gas PEEP 8 cm H2O; Blood Gas Respiration Rate 12; Blood Gas VT 450 cc
[2018-05-14] MEDS: D5% in Water 1,000 ML IVC SCH ×2 (10:20→23:22)
[2018-05-14 10:34] LABS: ABG Base Excess -12 mEq/L (-2 to 3); ABG HCO3 15 mEq/L (21-27); ABG Oxygen Saturation 96 % (95-98); ABG PCO2 36 mmHg (35-45); ABG PH 7.23 pH Units (7.32-7.45); ABG PO2 95 mmHg (85-104); ABG TCO2 16 mEq/L (20-26); Blood Gas Modality ASSIST CONTROL; Blood Gas PEEP 8 cm H2O; Blood Gas Respiration Rate 18; Blood Gas VT 450 cc
[2018-05-14] MEDS ORDERED: *HR* Rocuronium Bromide 100 MG/10 ML VIAL IVC ONE (12:59)
[2018-05-14] MEDS ORDERED: *HR* Etomidate 20 MG/10 ML AMPUL IVP ONE (12:59)
[2018-05-14 13:14] LABS: Magnesium 1.7 mg/dL (1.6-2.6); Phosphorous 5.5 mg/dL (2.7-4.5)
[2018-05-14] MEDS ORDERED: Ringers Solution, Lactated 1,000 ML IVC ONE (13:23)
[2018-05-14] MEDS: FentaNYL (PF) 1,000 MCG in 0.9 % Sodium Chloride 80 ML IVC SCH (15:59)
[2018-05-14] MEDS: *HR* Heparin 5,000 UNIT/ML VIAL SQ SCH (17:14)
[2018-05-14] MEDS: Piperacillin/Tazobactam 3.375 GM in 0.9 % Sodium Chloride Mini Bag 100 ML IVPB SCH (17:14)
[2018-05-14] MEDS: Dexmedetomidine HCl 400 MCG/100 ML MLS IVC SCH (17:23)
[2018-05-14 20:52] LABS: VBG Ionized Calcium 1.05 mmol/L (1.15-1.35)
[2018-05-14 21:10] LABS: Potassium 3.8 mEq/L (3.5-5.1)
[2018-05-14] MEDS: Potassium Chloride 40 MEQ/200 ML BAG IVPB PRN (22:11)
[2018-05-14] MEDS: Norepinephrine 16 MG in D5% in Water 500 ML IVC SCH (23:02)
[2018-05-15 03:32] LABS: Basophils # 0.1 K/mcL (0.0-0.2); Basophils % 0.3 %; Eosinophils # 0.4 K/mcL (0.0-0.6); Eosinophils % 1.4 %; Hematocrit 32.7 % (35.3-44.9); Hemoglobin 10.3 g/dL (11.5-15.4); Immature Granulocytes % 4.5 % (0-4); Lymphocytes % 6.4 %; Mean Corpuscular HGB Conc 31.5 g/dL (31.6-35.5); Mean Corpuscular Volume 92.1 fL (83.0-100.0); Mean Platelet Volume 11.5 fL (9.4-12.4); Monocytes # 0.7 K/mcL (0.0-1.3); Monocytes % 2.3 %; Nucleated Red Blood Cells 1.4 /100 WBC (0); Platelet Count 165 K/mcL (140-400); Red Blood Count 3.55 M/mcL (3.82-4.97); Red Cell Distribution Width 18.1 % (11.5-14.5); Segmented Neutrophils % 85.1 %
[2018-05-15 03:32] LABS: VBG Ionized Calcium 1.08 mmol/L (1.15-1.35)
[2018-05-15] MEDS: Phenylephrine 10 MG in D5% in Water 250 ML IVC SCH ×2 (03:44→19:41)
[2018-05-15] MEDS: Lacri-Lube 3.5 GM TUBE BOTH EYES SCH ×6 (03:45→22:59)
[2018-05-15 03:52] LABS: Calcium 7.8 mg/dL (8.6-10.3); Potassium 4.2 mEq/L (3.5-5.1)
[2018-05-15 04:05] LABS: Platelet Estimate Normal (Normal); Toxic Granulation Present (Not Present); Toxic Vacuolation Present (Not Present)
[2018-05-15 05:10] LABS: Magnesium 1.9 mg/dL (1.6-2.6); Phosphorous 2.1 mg/dL (2.7-4.5)
[2018-05-15 05:10] LABS: ABG Base Excess -7 mEq/L (-2 to 3); ABG HCO3 17 mEq/L (21-27); ABG Oxygen Saturation 95 % (95-98); ABG PCO2 27 mmHg (35-45); ABG PH 7.41 pH Units (7.32-7.45); ABG PO2 75 mmHg (85-104); ABG TCO2 18 mEq/L (20-26); Blood Gas Modality PRVC; Blood Gas PEEP 5 cm H2O; Blood Gas Respiration Rate 18; Blood Gas VT 450 cc
[2018-05-15] MEDS: Piperacillin/Tazobactam 3.375 GM in 0.9 % Sodium Chloride Mini Bag 100 ML IVPB SCH ×2 (05:33→18:12)
[2018-05-15] MEDS: *HR* Heparin 5,000 UNIT/ML VIAL SQ SCH ×2 (05:33→18:12)
[2018-05-15] MEDS: FentaNYL (PF) 1,000 MCG in 0.9 % Sodium Chloride 80 ML IVC SCH ×2 (05:34→23:58)
[2018-05-15] MEDS: Potassium Phosphate 44 MEQ in 0.9 % Sodium Chloride 250 ML IVPB PRN (05:57)
--- NOTE | 2018-05-15 07:04 | Pulmonology Progress Note ---
<KevinYadiraeleanor M - Last Filed: 05/15/18 08:25> Date of Encounter: 05/15/18 Objective PUL Vital signs: Last Vital Signs Temp 97.8 F 05/15/18 08:00 Pulse 60 05/15/18 08:00 Resp 20 05/15/18 08:00 BP 85/52 05/15/18 08:00 Pulse Ox 100 05/15/18 08:00 Ventilator Settings Ventilator Settings: Ventilator Settings, Last 8 Hours Ventilator Tidal Volume 500 Setting Ventilator Tidal Volume 500 Setting Ventilator Tidal Volume 450 Setting Ventilator Tidal Volume 450 Setting Ventilator Tidal Volume 450 Setting Ventilator Tidal Volume 450 Setting Ventilator Tidal Volume 450 Setting Ventilator Tidal Volume 450 Setting Ventilator Tidal Volume 450 Setting Ventilator Tidal Volume 450 Setting Ventilator Tidal Volume 450 Setting Ventilator Tidal Volume 450 Setting Ventilator Respiratory Rate 12 Setting Ventilator Respiratory Rate 12 Setting Ventilator Respiratory Rate 18 Setting Ventilator Respiratory Rate 18 Setting Ventilator Respiratory Rate 18 Setting Ventilator Respiratory Rate 18 Setting Ventilator Respiratory Rate 18 Setting Ventilator Respiratory Rate 18 Setting Ventilator Respiratory Rate 18 Setting Ventilator Respiratory Rate 18 Setting Ventilator Respiratory Rate 18 Setting Ventilator Respiratory Rate 18 Setting Actual Respiratory Rate 20 Actual Respiratory Rate 23 Actual Respiratory Rate 24 Actual Respiratory Rate 21 Actual Respiratory Rate 22 Actual Respiratory Rate 22 Actual Respiratory Rate 19 Actual Respiratory Rate 19 Actual Respiratory Rate 19 Actual Respiratory Rate 19 Actual Respiratory Rate 19 Positive End Expiratory 5 Pressure Positive End Expiratory 5 Pressure Positive End Expiratory 5 Pressure Positive End Expiratory 5 Pressure Positive End Expiratory 5 Pressure Positive End Expiratory 5 Pressure Positive End Expiratory 5 Pressure Positive End Expiratory 8 Pressure Positive End Expiratory 8 Pressure Positive End Expiratory 8 Pressure Positive End Expiratory 8 Pressure Positive End Expiratory 8 Pressure Peak Inspiratory Airway 16 Pressure Peak Inspiratory Airway 6.5 Pressure Peak Inspiratory Airway 6 Pressure Peak Inspiratory Airway 13 Pressure Peak Inspiratory Airway 6.8 Pressure Peak Inspiratory Airway 6.8 Pressure Peak Inspiratory Airway 5 Pressure Peak Inspiratory Airway 5 Pressure Peak Inspiratory Airway 5.7 Pressure Peak Inspiratory Airway 7.7 Pressure Peak Inspiratory Airway 5 Pressure Results - Laboratory Findings CBC and BMP: 05/15/18 03:15 05/15/18 03:15 ABG ABG pH 7.41 pH Units (7.32-7.45) 05/15/18 05:07 ABG pCO2 27 mmHg (35-45) L 05/15/18 05:07 ABG pO2 75 mmHg (85-104) L 05/15/18 05:07 ABG O2 Saturation 95 % (95-98) 05/15/18 05:07 PT/INR, D-dimer PT 18.8 Seconds (9.4-12.1) H 05/14/18 06:51 Abnormal lab findings: Abnormal lab results WBC 31.7 K/mcL (4.3-11.1) H* D 05/15/18 03:15 RBC 3.55 M/mcL (3.82-4.97) L 05/15/18 03:15 Hgb 10.3 g/dL (11.5-15.4) L 05/15/18 03:15 Hct 32.7 % (35.3-44.9) L 05/15/18 03:15 MCHC 31.5 g/dL (31.6-35.5) L 05/15/18 03:15 RDW 18.1 % (11.5-14.5) H 05/15/18 03:15 Immature Gran % 4.5 % (0-4) H 05/15/18 03:15 Band Neutrophils % 10.0 % (0-4) H 05/14/18 06:57 Neutrophils # 27.0 K/mcL (1.6-8.9) H 05/15/18 03:15 Nucleated RBCs/100 WBC 1.4 /100 WBC (0) H 05/15/18 03:15 Toxic Granulation Present (Not Present) A 05/15/18 03:15 Toxic Vacuolation Present (Not Present) A 05/15/18 03:15 Polychromasia 1+ (Not Present) A 05/14/18 03:26 PT 18.8 Seconds (9.4-12.1) H 05/14/18 06:51 APTT 22.5 Seconds (26.0-36.0) L 05/14/18 06:51 ABG pCO2 27 mmHg (35-45) L 05/15/18 05:07 ABG pO2 75 mmHg (85-104) L 05/15/18 05:07 ABG HCO3 17 mEq/L (21-27) L 05/15/18 05:07 ABG Total CO2 18 mEq/L (20-26) L 05/15/18 05:07 ABG Base Excess -7 mEq/L (-2 to 3) L 05/15/18 05:07 Chloride 117 mEq/L (98-107) H 05/15/18 03:15 Carbon Dioxide 15 mEq/L (23-29) L 05/15/18 03:15 BUN 79 mg/dL (8-23) H 05/15/18 03:15 Creatinine 3.94 mg/dL (0.60-1.20) H 05/15/18 03:15 Est GFR ( Amer) 13 (> 60) L 05/15/18 03:15 Est GFR (Non-Af Amer) 11 (> 60) L 05/15/18 03:15 Glucose 139 mg/dL (70-105) H 05/15/18 03:15 POC Glucose 169 mg/dL (70-99) H 05/14/18 23:13 Calculated Osmolality 322 (280-300) H 05/15/18 03:15 Lactic Acid 3.6 mmol/L (0.5-2.2) H 05/14/18 20:40 Calcium 7.8 mg/dL (8.6-10.3) L 05/15/18 03:15 Venous Ioniz Calcium 1.08 mmol/L (1.15-1.35) L 05/15/18 03:28 Phosphorus 2.1 mg/dL (2.7-4.5) L 05/15/18 03:15 Direct Bilirubin 0.3 mg/dL (0.0-0.2) H 05/14/18 02:57 AST 43 Units/L (13-39) H 05/14/18 06:57 Troponin I 0.07 ng/mL (< 0.04) H* 05/14/18 06:57 Serum Total Protein 5.6 g/dL (6.4-8.9) L 05/14/18 06:57 Albumin 2.4 g/dL (3.5-5.7) L 05/14/18 06:57 Albumin/Globulin Ratio 0.8 (1.1-2.2) L 05/14/18 06:57 Urine Clarity Cloudy (Clear) A 05/14/18 02:06 Urine Protein 30 mg/dL (Neg-Trace) H 05/14/18 02:06 Urine Bilirubin Small (Negative) H 05/14/18 02:06 Ur Leukocyte Esterase Large (Negative) H 05/14/18 02:06 Urine Microscopic RBC 3-5 per hpf (0-3) H 05/14/18 02:06 Urine Microscopic WBC 15-30 per hpf (0-3) H 05/14/18 02:06 Ur Squamous Epith Cells Moderate per lpf (None-Few) H 05/14/18 02:06 Urine Bacteria Moderate per hpf (None-Few) H 05/14/18 02:06 Ur Culture Indicated? YES (NO) A 05/14/18 02:06 - Microbiology Findings Microbiology Findings: Microbiology, Last 48 Hours 05/14/18 23:30 Sputum Culture - Preliminary Sputum - Clinical Findings Intake & Output: Intake & Output 05/14/18 05/15/18 05/15/18 23:59 07:59 15:59 Intake Total 3639 / 3639 285 / 285 Output Total 1100 / 1100 325 / 325 Balance 2539 / 2539 -40 / -40 Weight 78.8 kg Consult Discharge Plan - Plan Referrals: Albertina Huerta MD [Primary Care Provider] - - Attending Attestation I examined this patient and my medical decision-making was reviewed with the Resident Physician. I agree with the documented findings, disposition and treatment plan as described except to the extent set forth below. Patient seen and examined. Labs, radiology, chart personally reviewed. Agree with resident's history and physical, assessment, plan with following comments: ENROLLMENT CONSULTANT: Patient does not follows commands, Pulmonary: There is significant intrinsic PEEP which was measured almost 10 which could be affecting care hemodynamics and change vent setting with lowering respiratory rate and increased tidal volume to keep minute ventilation and repeat ABG. Patient has complicated acid-base disorder. Cardiovascular: Patient remained in shock which I suspect at this point primarily vasodilatory and septic in nature. GI: Nutrition per dietary and GI prophylaxis per routine. We will hold tube feed since patient is on vasopressors Heme: DVT prophylaxis per routine ID: Continue antibiotics and plan to de-escalation. We will add vancomycin again since patient at risk of MRSA infection. Renal; urine out put and renal funtion reviewed. There is a correction of hypernatremia and replace electrolytes. Endorcine: blood glucose is monitored Lines: all lines checked and no evidence of infections Skin: skin care to prevent pressure ulcers per nursing routine care Prognosis is poor. I spent 35 min of Critical Care time with this patient. It involved decision making of high complexity to assess, manipulate, and support vital organ system failure and/or to prevent further life threatening deterioration of the patient' s condition. The time involved in the performance of separately reportable procedures was not counted toward critical care time. <Ash Vargas - Last Filed: 05/15/18 09:10> Date of Encounter: 05/15/18 Time of Encounter: 07:04 Assessment and Plan (1) Dehydration Current Visit: Yes Status: Acute Patient in the emergency department did get 3 L of IV fluids of normal saline. Patient did have hypernatremia with a sodium level of 173. Patient had a total body water deficit of 7.1 based on calculations. We will slowly normalize the sodium with this can be done by giving more fluids. This patient does seem to still be dehydrated. We will give one more liter of fluids here in the ICU. Then will give patient half of the total body water deficit today and the rest tomorrow. Of the 3.5 L given today half will be through the OG tube and the other half will be through IV using D5W. We will continue getting BMPs. This is also helping patient's lactic acidosis is very given IV fluids patient also has a acidosis, respiratory and metabolic component as well as a metabolic alkalosis secondary to contraction alkalosis. Patient did have a head CT done which did show no acute abnormalities. Chest CT also showed improvement of bilateral pleural effusions and possibly aspiration pneumonitis. Patient is going to be treated with Zosyn for possible pneumonia. Patient was hypotensive this most likely secondary to shock to the dehydration. She is on 2 vasopressors including vasopressin and levo fed. We will try to wean as tolerated. Patient was given 2 IV boluses of normal saline and lactated Ringer's yesterday. As well as 1.5 L D5W and 1.5 L free water via OG. Patient's hyponatremia seems to be normalizing. We will give 1 L D5W to continue to help with patient's total water deficit. In the ER they did speak with family about CODE STATUS we also did a here in the ICU. Family is still adamant they cannot make the decision to not do everything so patient's CODE STATUS is still full code. We did tell template family to think about it as patient'sis very poor due to patient's illness and multiorgan failure. (2) Acute respiratory failure with hypoxia Current Visit: Yes Status: Acute Patient did have respiratory failure she was sedated with etomidate and rocuronium and intubated in the emergency department placed on the ventilator. Patient was initially acidotic and worsening patient's rate was increased to approximately 20 patient's acidosis did help with that. We did x-ray a few ventilator changes to make patient's pH more regular we are still continue to get daily ABGs to monitor. Patient has not had to be sedated at this time but in case patient does need sedation Precedex is ordered. This most likely is secondary to encephalopathy due to hypernatremia and patient's acidosis. Patient is now sedated with Precedex and fentanyl. Family is worried about pain medication want to give them a [place] I instead ordered fentanyl as a drip to help with patient's pain and also sedation. Ventilator management with ventilator bundle. Including GI prophylaxis Precedex ordered in case she needs it for sedation Duo nebs every 4 hours. (3) Acute renal failure Current Visit: Yes Status: Acute Patient does have worsening acute kidney injury with a creatinine of 6.4. This most likely secondary to dehydration. This should normalize as we continued to IV hydrate. Today's creatinine is 3.9. This seemed to be normalizing. This seems to be doing better after patient has gotten better fluid volume. Will not consult nephrology at this time. The patient's creatinine does not fully normalized we will consider Continue to monitor daily CMP creatinine's Qualifiers: Acute renal failure type: unspecified Qualified Code(s): N17.9 - Acute kidney failure, unspecified (4) Lactic acidosis Current Visit: Yes Status: Acute Patient does have a lactic acidosis is most likely secondary due to patient's dehydration. We will continue to monitor lactate. IV fluids will help normalize. (5) Hypernatremia Current Visit: Yes Status: Acute Patient does have hypernatremia of 173. Patient does have a total body water deficit of 7. This is most likely secondary dehydration. We will rehydrate the patient which should help with patient's hypernatremia we do not want to due to facet patient will have history of brittle edema. So we will give half the water deficit today and the other half tomorrow. This will be done using D5W as well as free water through the OG tube. See plan above Most recent sodium is 143. This is after getting patient IV fluids. We will continue with D5W for 1 L today. To help with total body water deficit and help normalize the sodium more. Start patient on electrolyte protocol (6) Healthcare-associated pneumonia Current Visit: Yes Status: Acute Patient most likely has hospital acquired pneumonia as patient has been in a residential as well as hospitalized recently. Patient was given vancomycin and Zosyn. Due to patient's acute kidney injury will hold off on giving vancomycin at this time as I think this is most likely all secondary dehydration. We will continue the patient with daily Zosyn antibiotics. Sputum culture did show gram-positive organisms. Due to this we will add vancomycin. Patient also had an elevation in white blood cell count this could be stress-related also could be due to a pneumonia or aspiration pneumonia. Blood cultures are pending. Day 2 Zosyn Started vancomycin day 1 (7) Status post Sunny's procedure Current Visit: No Status: Acute Patient does have colostomy. This does not seem to be an abdominal pathology causing patient's issues today. CT abdomen and pelvis was done which shows no signs of obstruction, perforation or abscess. Or any acute pathology. (8) DVT prophylaxis Current Visit: No Status: Acute Heparin subcutaneous twice a day Subjective Principal diagnosis: Dehydration Interval history: There are no acute overnight events. Patient's chart, images, labs reviewed. Overall patient is getting better her hyponatremia is resolving. Although patient is still sedated. She is not alert and not making purposeful movements and cell not following commands. Patient does make movements towards the tube these are not purposeful. Family is not at bedside during rounds today. Patient is still to be full code at this time. Objective PUL Vital signs: Last Vital Signs Temp 98.5 F 05/15/18 03:00 Pulse 73 05/15/18 05:44 Resp 21 05/15/18 05:44 BP 109/53 05/15/18 05:44 Pulse Ox 99 05/15/18 05:44 General appearance: no acute distress, other (Somnolence sedated on the ventilator) Eyes: nonicteric ENT: oropharynx moist Neck: supple Effort: normal Auscultation: bilateral: wheezes Cardiovascular: regular rate and rhythm Gastrointestinal: normoactive bowel sounds, soft, non-tender, non-distended Extremities: no cyanosis, no edema, no clubbing Musculoskeletal: no deformities, ROM normal non-focal exam, pupils equal and round, motor strength normal and symmetric Ventilator Settings Ventilator Settings: Ventilator Settings, Last 8 Hours Ventilator Tidal Volume 450 Setting Ventilator Tidal Volume 450 Setting Ventilator Tidal Volume 450 Setting Ventilator Tidal Volume 450 Setting Ventilator Tidal Volume 450 Setting Ventilator Tidal Volume 450 Setting Ventilator Tidal Volume 450 Setting Ventilator Tidal Volume 450 Setting Ventilator Tidal Volume 450 Setting Ventilator Tidal Volume 450 Setting Ventilator Respiratory Rate 18 Setting Ventilator Respiratory Rate 18 Setting Ventilator Respiratory Rate 18 Setting Ventilator Respiratory Rate 18 Setting Ventilator Respiratory Rate 18 Setting Ventilator Respiratory Rate 18 Setting Ventilator Respiratory Rate 18 Setting Ventilator Respiratory Rate 18 Setting Ventilator Respiratory Rate 18 Setting Ventilator Respiratory Rate 18 Setting Actual Respiratory Rate 21 Actual Respiratory Rate 22 Actual Respiratory Rate 22 Actual Respiratory Rate 19 Actual Respiratory Rate 19 Actual Respiratory Rate 19 Actual Respiratory Rate 19 Actual Respiratory Rate 19 Actual Respiratory Rate 19 Positive End Expiratory 5 Pressure Positive End Expiratory 5 Pressure Positive End Expiratory 5 Pressure Positive End Expiratory 5 Pressure Positive End Expiratory 8 Pressure Positive End Expiratory 8 Pressure Positive End Expiratory 8 Pressure Positive End Expiratory 8 Pressure Positive End Expiratory 8 Pressure Positive End Expiratory 8 Pressure Peak Inspiratory Airway 13 Pressure Peak Inspiratory Airway 6.8 Pressure Peak Inspiratory Airway 6.8 Pressure Peak Inspiratory Airway 5 Pressure Peak Inspiratory Airway 5 Pressure Peak Inspiratory Airway 5.7 Pressure Peak Inspiratory Airway 7.7 Pressure Peak Inspiratory Airway 5 Pressure Peak Inspiratory Airway 5 Pressure Results - Laboratory Findings CBC and BMP: 05/15/18 03:15 05/15/18 03:15 ABG ABG pH 7.41 pH Units (7.32-7.45) 05/15/18 05:07 ABG pCO2 27 mmHg (35-45) L 05/15/18 05:07 ABG pO2 75 mmHg (85-104) L 05/15/18 05:07 ABG O2 Saturation 95 % (95-98) 05/15/18 05:07 PT/INR, D-dimer PT 18.8 Seconds (9.4-12.1) H 05/14/18 06:51 Abnormal lab findings: Abnormal lab results WBC 31.7 K/mcL (4.3-11.1) H* D 05/15/18 03:15 RBC 3.55 M/mcL (3.82-4.97) L 05/15/18 03:15 Hgb 10.3 g/dL (11.5-15.4) L 05/15/18 03:15 Hct 32.7 % (35.3-44.9) L 05/15/18 03:15 MCHC 31.5 g/dL (31.6-35.5) L 05/15/18 03:15 RDW 18.1 % (11.5-14.5) H 05/15/18 03:15 Immature Gran % 4.5 % (0-4) H 05/15/18 03:15 Band Neutrophils % 10.0 % (0-4) H 05/14/18 06:57 Neutrophils # 27.0 K/mcL (1.6-8.9) H 05/15/18 03:15 Nucleated RBCs/100 WBC 1.4 /100 WBC (0) H 05/15/18 03:15 Toxic Granulation Present (Not Present) A 05/15/18 03:15 Toxic Vacuolation Present (Not Present) A 05/15/18 03:15 Polychromasia 1+ (Not Present) A 05/14/18 03:26 PT 18.8 Seconds (9.4-12.1) H 05/14/18 06:51 APTT 22.5 Seconds (26.0-36.0) L 05/14/18 06:51 ABG pCO2 27 mmHg (35-45) L 05/15/18 05:07 ABG pO2 75 mmHg (85-104) L 05/15/18 05:07 ABG HCO3 17 mEq/L (21-27) L 05/15/18 05:07 ABG Total CO2 18 mEq/L (20-26) L 05/15/18 05:07 ABG Base Excess -7 mEq/L (-2 to 3) L 05/15/18 05:07 Chloride 117 mEq/L (98-107) H 05/15/18 03:15 Carbon Dioxide 15 mEq/L (23-29) L 05/15/18 03:15 BUN 79 mg/dL (8-23) H 05/15/18 03:15 Creatinine 3.94 mg/dL (0.60-1.20) H 05/15/18 03:15 Est GFR ( Amer) 13 (> 60) L 05/15/18 03:15 Est GFR (Non-Af Amer) 11 (> 60) L 05/15/18 03:15 Glucose 139 mg/dL (70-105) H 05/15/18 03:15 POC Glucose 169 mg/dL (70-99) H 05/14/18 23:13 Calculated Osmolality 322 (280-300) H 05/15/18 03:15 Lactic Acid 3.6 mmol/L (0.5-2.2) H 05/14/18 20:40 Calcium 7.8 mg/dL (8.6-10.3) L 05/15/18 03:15 Venous Ioniz Calcium 1.08 mmol/L (1.15-1.35) L 05/15/18 03:28 Phosphorus 2.1 mg/dL (2.7-4.5) L 05/15/18 03:15 Direct Bilirubin 0.3 mg/dL (0.0-0.2) H 05/14/18 02:57 AST 43 Units/L (13-39) H 05/14/18 06:57 Troponin I 0.07 ng/mL (< 0.04) H* 05/14/18 06:57 Serum Total Protein 5.6 g/dL (6.4-8.9) L 05/14/18 06:57 Albumin 2.4 g/dL (3.5-5.7) L 05/14/18 06:57 Albumin/Globulin Ratio 0.8 (1.1-2.2) L 05/14/18 06:57 Urine Clarity Cloudy (Clear) A 05/14/18 02:06 Urine Protein 30 mg/dL (Neg-Trace) H 05/14/18 02:06 Urine Bilirubin Small (Negative) H 05/14/18 02:06 Ur Leukocyte Esterase Large (Negative) H 05/14/18 02:06 Urine Microscopic RBC 3-5 per hpf (0-3) H 05/14/18 02:06 Urine Microscopic WBC 15-30 per hpf (0-3) H 05/14/18 02:06 Ur Squamous Epith Cells Moderate per lpf (None-Few) H 05/14/18 02:06 Urine Bacteria Moderate per hpf (None-Few) H 05/14/18 02:06 Ur Culture Indicated? YES (NO) A 05/14/18 02:06 - Microbiology Findings Microbiology Findings: Microbiology, Last 48 Hours 05/14/18 23:30 Sputum Culture - Preliminary Sputum - Diagnostic Findings Chest x-ray: report reviewed, image reviewed - Clinical Findings Intake & Output: Intake & Output 05/14/18 05/14/18 05/15/18 15:59 23:59 07:59 Intake Total 2572 / 2572 3639 / 3639 285 / 285 Output Total 400 / 400 1100 / 1100 325 / 325 Balance 2172 / 2172 2539 / 2079 -40 / -40 Weight 78.8 kg
[2018-05-15] MEDS: Pantoprazole 40 MG VIAL IVP SCH (07:32)
[2018-05-15] MEDS: Chlorhexidine Rinse 15 ML MOUTHWASH MM SCH ×2 (07:32→19:57)
[2018-05-15] MEDS: D5% in Water 1,000 ML IVC SCH ×2 (08:14→19:41)
[2018-05-15] MEDS: Ipratropium/Albuterol Neb 3 ML IH SCH ×5 (08:24→23:21)
[2018-05-15 09:46] LABS: ABG Base Excess -11 mEq/L (-2 to 3); ABG HCO3 15 mEq/L (21-27); ABG Oxygen Saturation 96 % (95-98); ABG PCO2 30 mmHg (35-45); ABG PO2 91 mmHg (85-104); ABG TCO2 16 mEq/L (20-26); Blood Gas PEEP 5 cm H2O; Blood Gas Respiration Rate 12; Blood Gas VT 500 cc
[2018-05-15] MEDS: Norepinephrine 16 MG in D5% in Water 500 ML IVC SCH (10:00)
[2018-05-15] MEDS ORDERED: Ipratropium/Albuterol Neb 3 ML IH SCH (12:00)
[2018-05-15] MEDS: Dexmedetomidine HCl 400 MCG/100 ML MLS IVC SCH ×2 (12:25→23:32)
[2018-05-15] MEDS: Vasopressin 40 UNIT in D5% in Water 100 ML IV SCH (22:59)
[2018-05-16] MEDS: Lacri-Lube 3.5 GM TUBE BOTH EYES SCH ×6 (02:50→23:15)
[2018-05-16] MEDS: D5% in Water 1,000 ML IVC SCH (02:50)
[2018-05-16 03:08] LABS: Nucleated Red Blood Cells 0.2 /100 WBC (0)
[2018-05-16 03:09] LABS: Basophils % 0.2 %; Eosinophils # 0.7 K/mcL (0.0-0.6); Eosinophils % 3.4 %; Hematocrit 28.9 % (35.3-44.9); Hemoglobin 9.3 g/dL (11.5-15.4); Immature Granulocytes % 5.1 % (0-4); Immature Platelets 7.3 % (1.1-6.1); Lymphocytes # 1.6 K/mcL (0.6-4.6); Mean Corpuscular HGB Conc 32.2 g/dL (31.6-35.5); Mean Corpuscular Hemoglobin 29.2 pg (28.0-33.3); Mean Corpuscular Volume 90.6 fL (83.0-100.0); Mean Platelet Volume 12.5 fL (9.4-12.4); Monocytes # 0.4 K/mcL (0.0-1.3); Monocytes % 2.2 %; Red Blood Count 3.19 M/mcL (3.82-4.97); Red Cell Distribution Width 17.5 % (11.5-14.5); Segmented Neutrophils % 81.1 %
[2018-05-16 03:13] LABS: VBG Ionized Calcium 1.06 mmol/L (1.15-1.35)
[2018-05-16 03:21] LABS: Neutrophils # 16.1 K/mcL (1.6-8.9); Platelet Count 81 K/mcL (140-400)
[2018-05-16 03:28] LABS: Anisocytosis 1+ (Not Present)
[2018-05-16 03:29] LABS: Platelet Estimate Decreased (Normal); Poikilocytosis 1+ (Not Present); Toxic Granulation Present (Not Present)
[2018-05-16 03:31] LABS: Calcium 7.5 mg/dL (8.6-10.3); Magnesium 1.8 mg/dL (1.6-2.6); Phosphorous 3.8 mg/dL (2.7-4.5); Potassium 3.9 mEq/L (3.5-5.1)
[2018-05-16] MEDS: Ipratropium/Albuterol Neb 3 ML IH SCH ×6 (03:31→23:05)
[2018-05-16] MEDS: Potassium Chloride 40 MEQ/200 ML BAG IVPB PRN (04:15)
[2018-05-16] MEDS: Piperacillin/Tazobactam 3.375 GM in 0.9 % Sodium Chloride Mini Bag 100 ML IVPB SCH ×2 (04:50→18:02)
[2018-05-16] MEDS: *HR* Heparin 5,000 UNIT/ML VIAL SQ SCH ×2 (04:51→18:02)
[2018-05-16 05:17] LABS: ABG Base Excess -7 mEq/L (-2 to 3); ABG HCO3 18 mEq/L (21-27); ABG Oxygen Saturation 98 % (95-98); ABG PCO2 34 mmHg (35-45); ABG PH 7.34 pH Units (7.32-7.45); ABG PO2 113 mmHg (85-104); ABG TCO2 19 mEq/L (20-26); Blood Gas Modality PRVC; Blood Gas PEEP 5 cm H2O; Blood Gas Respiration Rate 14; Blood Gas VT 500 cc
[2018-05-16] MEDS: FentaNYL (PF) 1,000 MCG in 0.9 % Sodium Chloride 80 ML IVC SCH ×2 (08:06→17:10)
[2018-05-16] MEDS: Pantoprazole 40 MG VIAL IVP SCH (08:06)
[2018-05-16] MEDS: Chlorhexidine Rinse 15 ML MOUTHWASH MM SCH ×2 (08:06→19:41)
[2018-05-16] MEDS ORDERED: 0.9 % Sodium Chloride 500 ML ONE (09:25)
[2018-05-16] MEDS: Dexmedetomidine HCl 400 MCG/100 ML MLS IVC SCH ×2 (09:36→19:38)
--- NOTE | 2018-05-16 11:22 | Procedure Note ---
<Ash Vargas - Last Filed: 05/16/18 11:18> Date of procedure: 05/16/18 Pre-op diagnosis: hypotension and sepsis Post-op diagnosis: same Procedure: ARTERIAL LINE (A-Line) PLACEMENT Date: 05/16/18 Time: 1120 Indication: Hemodynamic monitoring Resident: Dr. Ash Vargas Attending: Dr. Foss A time-out was completed verifying correct patient, procedure, site, positioning , and special equipment if applicable. Allens test was performed to ensure adequate perfusion. The patients <right> wrist was prepped and draped in sterile fashion. A <18G> Arrow arterial line was introduced into the <radial/ femoral> artery. The catheter was threaded over the guide wire and the needle was removed with appropriate pulsatile blood return. The catheter was then sutured in place to the skin and a sterile dressing applied. Perfusion to the extremity distal to the point of catheter insertion was checked and found to be adequate. <Attending> was present for the entire procedure. Estimated Blood Loss: <1 mL> The patient tolerated the procedure well and there were no complications. Anesthesia: IV sedation Surgeon: Ash Vargas Was there an assistant auditor present: No Estimated blood loss (cc): 1 Specimen: None Pathology: none sent Condition: critical Disposition: ICU <Jovita Ledezma - Last Filed: 05/16/18 13:59> Procedure: I was present during the procedure confirmed the catheter placement.
[2018-05-16 12:05] LABS: VBG Ionized Calcium 1.13 mmol/L (1.15-1.35)
[2018-05-16 12:28] LABS: Magnesium 2.2 mg/dL (1.6-2.6)
--- NOTE | 2018-05-16 13:59 | Pulmonology Progress Note ---
Date of Encounter: 05/16/18 Time of Encounter: 08:30 Assessment and Plan (1) Acute respiratory failure with hypoxia Current Visit: Yes Status: Acute Patient acute hypoxic respiratory failure respiratory failure due to pneumonia and diastolic dysfunction. Patient tidal volume was adjusted for low tidal volume strategy. Adequate oxygenation and ventilation. (2) Healthcare-associated pneumonia Current Visit: Yes Status: Acute We will continue the broad-spectrum antibiotics (3) Septic shock Current Visit: Yes Status: Acute Patient is on Levophed and vasopressin put an arterial line and compare to NIBP pressure will titrate down to map of 65. (4) GEORGI (acute kidney injury) Current Visit: No Status: Acute Monitor the urine output and creatinine secondary to septic shock if not improving will consult nephrology. Patient does not have any urgent indication for hemodialysis. (5) DVT prophylaxis Current Visit: Yes Status: Acute To continue Heparin. Subjective Principal diagnosis: Dehydration Interval history: Patient with pneumonia , complicated by septic shock septic shock . Patient condition is the same not responding to commands . We will put an arterial line hopefully will help in liberation of the vasopressors . Objective PUL Vital signs: Last Vital Signs Temp 96.1 F L 05/16/18 12:22 Pulse 80 05/16/18 13:00 Resp 18 05/16/18 13:11 BP 125/73 05/16/18 13:11 Pulse Ox 97 05/16/18 13:11 Auscultation: bilateral: diminished breath sounds (dminished breadth sounds ) Extremities: edema unable to assess due to mental status other (cannot be assessed ) Ventilator Settings Ventilator Settings: Ventilator Settings, Last 8 Hours Ventilator Tidal Volume 400 Setting Ventilator Tidal Volume 400 Setting Ventilator Tidal Volume 400 Setting Ventilator Tidal Volume 400 Setting Ventilator Tidal Volume 400 Setting Ventilator Tidal Volume 400 Setting Ventilator Tidal Volume 400 Setting Ventilator Tidal Volume 400 Setting Ventilator Tidal Volume 500 Setting Ventilator Tidal Volume 500 Setting Ventilator Tidal Volume 500 Setting Ventilator Tidal Volume 500 Setting Ventilator Respiratory Rate 18 Setting Ventilator Respiratory Rate 18 Setting Ventilator Respiratory Rate 18 Setting Ventilator Respiratory Rate 18 Setting Ventilator Respiratory Rate 18 Setting Ventilator Respiratory Rate 18 Setting Ventilator Respiratory Rate 18 Setting Ventilator Respiratory Rate 18 Setting Ventilator Respiratory Rate 14 Setting Ventilator Respiratory Rate 14 Setting Ventilator Respiratory Rate 14 Setting Ventilator Respiratory Rate 14 Setting Actual Respiratory Rate 18 Actual Respiratory Rate 18 Actual Respiratory Rate 18 Actual Respiratory Rate 18 Actual Respiratory Rate 19 Actual Respiratory Rate 18 Actual Respiratory Rate 18 Actual Respiratory Rate 18 Actual Respiratory Rate 14 Actual Respiratory Rate 14 Actual Respiratory Rate 14 Actual Respiratory Rate 14 Positive End Expiratory 5 Pressure Positive End Expiratory 5 Pressure Positive End Expiratory 5 Pressure Positive End Expiratory 5 Pressure Positive End Expiratory 5 Pressure Positive End Expiratory 5 Pressure Positive End Expiratory 5 Pressure Positive End Expiratory 5 Pressure Positive End Expiratory 5 Pressure Positive End Expiratory 5 Pressure Positive End Expiratory 5 Pressure Positive End Expiratory 5 Pressure Peak Inspiratory Airway 24 Pressure Peak Inspiratory Airway 25 Pressure Peak Inspiratory Airway 22 Pressure Peak Inspiratory Airway 25 Pressure Peak Inspiratory Airway 24 Pressure Peak Inspiratory Airway 22 Pressure Peak Inspiratory Airway 23 Pressure Peak Inspiratory Airway 22 Pressure Peak Inspiratory Airway 22 Pressure Peak Inspiratory Airway 33 Pressure Peak Inspiratory Airway 21 Pressure Peak Inspiratory Airway 21 Pressure Results - Laboratory Findings CBC and BMP: 05/16/18 03:00 05/16/18 10:47 ABG ABG pH 7.34 pH Units (7.32-7.45) 05/16/18 05:15 ABG pCO2 34 mmHg (35-45) L 05/16/18 05:15 ABG pO2 113 mmHg (85-104) H 05/16/18 05:15 ABG O2 Saturation 98 % (95-98) 05/16/18 05:15 PT/INR, D-dimer PT 18.8 Seconds (9.4-12.1) H 05/14/18 06:51 Abnormal lab findings: Abnormal lab results WBC 19.8 K/mcL (4.3-11.1) H 05/16/18 03:00 RBC 3.19 M/mcL (3.82-4.97) L 05/16/18 03:00 Hgb 9.3 g/dL (11.5-15.4) L 05/16/18 03:00 Hct 28.9 % (35.3-44.9) L 05/16/18 03:00 RDW 17.5 % (11.5-14.5) H 05/16/18 03:00 Plt Count 81 K/mcL (140-400) L D 05/16/18 03:00 MPV 12.5 fL (9.4-12.4) H 05/16/18 03:00 Immature Gran % 5.1 % (0-4) H 05/16/18 03:00 Band Neutrophils % 10.0 % (0-4) H 05/14/18 06:57 Neutrophils # 16.1 K/mcL (1.6-8.9) H 05/16/18 03:00 Eosinophils # 0.7 K/mcL (0.0-0.6) H 05/16/18 03:00 Nucleated RBCs/100 WBC 0.2 /100 WBC (0) H 05/16/18 03:00 Toxic Granulation Present (Not Present) A 05/16/18 03:00 Toxic Vacuolation Present (Not Present) A 05/15/18 03:15 Platelet Estimate Decreased (Normal) L 05/16/18 03:00 Immature Plt Fraction 7.3 % (1.1-6.1) H 05/16/18 03:00 Polychromasia 1+ (Not Present) A 05/14/18 03:26 Poikilocytosis 1+ (Not Present) A 05/16/18 03:00 Anisocytosis 1+ (Not Present) A 05/16/18 03:00 PT 18.8 Seconds (9.4-12.1) H 05/14/18 06:51 APTT 22.5 Seconds (26.0-36.0) L 05/14/18 06:51 ABG pCO2 34 mmHg (35-45) L 05/16/18 05:15 ABG pO2 113 mmHg (85-104) H 05/16/18 05:15 ABG HCO3 18 mEq/L (21-27) L 05/16/18 05:15 ABG Total CO2 19 mEq/L (20-26) L 05/16/18 05:15 ABG Base Excess -7 mEq/L (-2 to 3) L 05/16/18 05:15 Chloride 112 mEq/L (98-107) H 05/16/18 03:00 Carbon Dioxide 19 mEq/L (23-29) L 05/16/18 03:00 BUN 60 mg/dL (8-23) H 05/16/18 03:00 Creatinine 2.49 mg/dL (0.60-1.20) H 05/16/18 03:00 Est GFR ( Amer) 23 (> 60) L 05/16/18 03:00 Est GFR (Non-Af Amer) 19 (> 60) L 05/16/18 03:00 Glucose 132 mg/dL (70-105) H 05/16/18 03:00 POC Glucose 145 mg/dL (70-99) H 05/16/18 11:28 Calculated Osmolality 305 (280-300) H 05/16/18 03:00 Lactic Acid 3.6 mmol/L (0.5-2.2) H 05/14/18 20:40 Calcium 7.5 mg/dL (8.6-10.3) L 05/16/18 03:00 Venous Ioniz Calcium 1.13 mmol/L (1.15-1.35) L 05/16/18 12:02 Direct Bilirubin 0.3 mg/dL (0.0-0.2) H 05/14/18 02:57 AST 43 Units/L (13-39) H 05/14/18 06:57 Troponin I 0.07 ng/mL (< 0.04) H* 05/14/18 06:57 Serum Total Protein 5.6 g/dL (6.4-8.9) L 05/14/18 06:57 Albumin 2.4 g/dL (3.5-5.7) L 05/14/18 06:57 Albumin/Globulin Ratio 0.8 (1.1-2.2) L 05/14/18 06:57 Urine Clarity Cloudy (Clear) A 05/14/18 02:06 Urine Protein 30 mg/dL (Neg-Trace) H 05/14/18 02:06 Urine Bilirubin Small (Negative) H 05/14/18 02:06 Ur Leukocyte Esterase Large (Negative) H 05/14/18 02:06 Urine Microscopic RBC 3-5 per hpf (0-3) H 05/14/18 02:06 Urine Microscopic WBC 15-30 per hpf (0-3) H 05/14/18 02:06 Ur Squamous Epith Cells Moderate per lpf (None-Few) H 05/14/18 02:06 Urine Bacteria Moderate per hpf (None-Few) H 05/14/18 02:06 Ur Culture Indicated? YES (NO) A 05/14/18 02:06 - Microbiology Findings Microbiology Findings: Microbiology, Last 48 Hours 05/14/18 23:30 Sputum Culture - Preliminary Sputum Staphylococcus aureus Gram Negative Joseph - Clinical Findings Intake & Output: Intake & Output 05/15/18 05/16/18 05/16/18 23:59 07:59 15:59 Intake Total 1627 / 1627 830 / 830 300 / 300 Output Total 1450 / 1450 375 / 375 600 / 600 Balance 177 / 177 455 / 455 -300 / -300 Weight 81.7 kg Consult Discharge Plan - Plan Referrals: Albertina Huerta MD [Primary Care Provider] -
--- NOTE | 2018-05-16 18:10 | Electrocardiograph Report ---
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
[2018-05-16] MEDS: Phenylephrine 10 MG in D5% in Water 250 ML IVC SCH (19:37)
[2018-05-16] MEDS: Vasopressin 40 UNIT in D5% in Water 100 ML IV SCH (19:37)
[2018-05-16] MEDS: Norepinephrine 16 MG in D5% in Water 500 ML IVC SCH (19:39)
[2018-05-17] MEDS: FentaNYL (PF) 1,000 MCG in 0.9 % Sodium Chloride 80 ML IVC SCH ×4 (00:21→19:59)
[2018-05-17] MEDS: Lacri-Lube 3.5 GM TUBE BOTH EYES SCH ×6 (02:52→23:27)
[2018-05-17 03:21] LABS: Nucleated Red Blood Cells 0.1 /100 WBC (0)
[2018-05-17 03:23] LABS: Basophils % 0.2 %; Eosinophils # 0.5 K/mcL (0.0-0.6); Eosinophils % 3.5 %; Hematocrit 26.6 % (35.3-44.9); Hemoglobin 8.8 g/dL (11.5-15.4); Immature Granulocytes % 0.6 % (0-4); Lymphocytes % 6.6 %; Mean Corpuscular HGB Conc 33.1 g/dL (31.6-35.5); Mean Corpuscular Hemoglobin 29.3 pg (28.0-33.3); Mean Corpuscular Volume 88.7 fL (83.0-100.0); Mean Platelet Volume 12.1 fL (9.4-12.4); Monocytes # 0.4 K/mcL (0.0-1.3); Monocytes % 2.5 %; Red Cell Distribution Width 17.9 % (11.5-14.5); Segmented Neutrophils % 86.6 %
[2018-05-17 03:24] LABS: VBG Ionized Calcium 1.11 mmol/L (1.15-1.35)
[2018-05-17 03:46] LABS: Calcium 7.5 mg/dL (8.6-10.3); Magnesium 1.9 mg/dL (1.6-2.6); Phosphorous 2.6 mg/dL (2.7-4.5); Potassium 3.6 mEq/L (3.5-5.1)
[2018-05-17] MEDS: Ipratropium/Albuterol Neb 3 ML IH SCH ×6 (03:49→23:06)
[2018-05-17] MEDS: Dexmedetomidine HCl 400 MCG/100 ML MLS IVC SCH ×3 (03:55→20:01)
[2018-05-17 04:09] LABS: Platelet Count 57 K/mcL (140-400)
[2018-05-17 04:12] LABS: Anisocytosis 1+ (Not Present); Hypochromasia Present (Not Present); Macrocytosis Present (Not Present); Platelet Estimate Decreased (Normal)
[2018-05-17] MEDS: Piperacillin/Tazobactam 3.375 GM in 0.9 % Sodium Chloride Mini Bag 100 ML IVPB SCH ×2 (05:36→17:20)
[2018-05-17] MEDS: Potassium Phosphate 44 MEQ in 0.9 % Sodium Chloride 250 ML IVPB PRN (05:37)
[2018-05-17] MEDS: Potassium Chloride 40 MEQ/200 ML BAG IVPB PRN (05:37)
[2018-05-17] MEDS: *HR* Heparin 5,000 UNIT/ML VIAL SQ SCH ×2 (05:40→17:15)
[2018-05-17] MEDS: Pantoprazole 40 MG VIAL IVP SCH (07:33)
[2018-05-17] MEDS: Chlorhexidine Rinse 15 ML MOUTHWASH MM SCH ×2 (07:33→19:34)
--- NOTE | 2018-05-17 09:14 | Pulmonology Progress Note ---
<Jovita Ledezma - Last Filed: 05/17/18 16:07> Date of Encounter: 05/17/18 Assessment and Plan (1) Acute respiratory failure with hypoxia Current Visit: Yes Status: Acute (2) Healthcare-associated pneumonia Current Visit: Yes Status: Acute (3) Septic shock Current Visit: Yes Status: Acute (4) GEORGI (acute kidney injury) Current Visit: No Status: Acute (5) DVT prophylaxis Current Visit: Yes Status: Acute Objective PUL Vital signs: Last Vital Signs Temp 97.8 F 05/17/18 12:25 Pulse 90 05/17/18 14:59 Resp 18 05/17/18 16:02 BP 127/68 05/17/18 16:02 Pulse Ox 97 05/17/18 16:02 Ventilator Settings Ventilator Settings: Ventilator Settings, Last 8 Hours Ventilator Tidal Volume 400 Setting Ventilator Tidal Volume 400 Setting Ventilator Tidal Volume 400 Setting Ventilator Tidal Volume 400 Setting Ventilator Tidal Volume 400 Setting Ventilator Tidal Volume 400 Setting Ventilator Tidal Volume 400 Setting Ventilator Tidal Volume 400 Setting Ventilator Tidal Volume 400 Setting Ventilator Tidal Volume 400 Setting Ventilator Tidal Volume 400 Setting Ventilator Respiratory Rate 18 Setting Ventilator Respiratory Rate 18 Setting Ventilator Respiratory Rate 18 Setting Ventilator Respiratory Rate 18 Setting Ventilator Respiratory Rate 18 Setting Ventilator Respiratory Rate 18 Setting Ventilator Respiratory Rate 18 Setting Ventilator Respiratory Rate 18 Setting Ventilator Respiratory Rate 18 Setting Ventilator Respiratory Rate 18 Setting Ventilator Respiratory Rate 18 Setting Actual Respiratory Rate 18 Actual Respiratory Rate 18 Actual Respiratory Rate 18 Actual Respiratory Rate 18 Actual Respiratory Rate 18 Actual Respiratory Rate 18 Actual Respiratory Rate 18 Actual Respiratory Rate 18 Actual Respiratory Rate 18 Actual Respiratory Rate 18 Actual Respiratory Rate 18 Positive End Expiratory 5 Pressure Positive End Expiratory 5 Pressure Positive End Expiratory 5 Pressure Positive End Expiratory 5 Pressure Positive End Expiratory 5 Pressure Positive End Expiratory 5 Pressure Positive End Expiratory 5 Pressure Positive End Expiratory 5 Pressure Positive End Expiratory 5 Pressure Positive End Expiratory 5 Pressure Positive End Expiratory 5 Pressure Peak Inspiratory Airway 25 Pressure Peak Inspiratory Airway 25 Pressure Peak Inspiratory Airway 25 Pressure Peak Inspiratory Airway 26 Pressure Peak Inspiratory Airway 24 Pressure Peak Inspiratory Airway 24 Pressure Peak Inspiratory Airway 24 Pressure Peak Inspiratory Airway 25 Pressure Peak Inspiratory Airway 26 Pressure Peak Inspiratory Airway 24 Pressure Peak Inspiratory Airway 24 Pressure Results - Laboratory Findings CBC and BMP: 05/17/18 03:15 05/17/18 03:15 ABG ABG pH 7.34 pH Units (7.32-7.45) 05/16/18 05:15 ABG pCO2 34 mmHg (35-45) L 05/16/18 05:15 ABG pO2 113 mmHg (85-104) H 05/16/18 05:15 ABG O2 Saturation 98 % (95-98) 05/16/18 05:15 PT/INR, D-dimer PT 18.8 Seconds (9.4-12.1) H 05/14/18 06:51 Abnormal lab findings: Abnormal lab results WBC 15.0 K/mcL (4.3-11.1) H 05/17/18 03:15 RBC 3.00 M/mcL (3.82-4.97) L 05/17/18 03:15 Hgb 8.8 g/dL (11.5-15.4) L 05/17/18 03:15 Hct 26.6 % (35.3-44.9) L 05/17/18 03:15 RDW 17.9 % (11.5-14.5) H 05/17/18 03:15 Plt Count 57 K/mcL (140-400) L 05/17/18 03:15 Band Neutrophils % 10.0 % (0-4) H 05/14/18 06:57 Neutrophils # 13.0 K/mcL (1.6-8.9) H 05/17/18 03:15 Nucleated RBCs/100 WBC 0.1 /100 WBC (0) H 05/17/18 03:15 Toxic Granulation Present (Not Present) A 05/16/18 03:00 Toxic Vacuolation Present (Not Present) A 05/15/18 03:15 Platelet Estimate Decreased (Normal) L 05/17/18 03:15 Immature Plt Fraction 9.0 % (1.1-6.1) H 05/17/18 03:15 Polychromasia 1+ (Not Present) A 05/14/18 03:26 Hypochromasia Present (Not Present) A 05/17/18 03:15 Poikilocytosis 1+ (Not Present) A 05/16/18 03:00 Anisocytosis 1+ (Not Present) A 05/17/18 03:15 Macrocytosis Present (Not Present) A 05/17/18 03:15 PT 18.8 Seconds (9.4-12.1) H 05/14/18 06:51 APTT 22.5 Seconds (26.0-36.0) L 05/14/18 06:51 ABG pCO2 34 mmHg (35-45) L 05/16/18 05:15 ABG pO2 113 mmHg (85-104) H 05/16/18 05:15 ABG HCO3 18 mEq/L (21-27) L 05/16/18 05:15 ABG Total CO2 19 mEq/L (20-26) L 05/16/18 05:15 ABG Base Excess -7 mEq/L (-2 to 3) L 05/16/18 05:15 Chloride 117 mEq/L (98-107) H 05/17/18 03:15 Carbon Dioxide 17 mEq/L (23-29) L 05/17/18 03:15 BUN 44 mg/dL (8-23) H 05/17/18 03:15 Creatinine 1.58 mg/dL (0.60-1.20) H 05/17/18 03:15 Est GFR ( Amer) 38 (> 60) L 05/17/18 03:15 Est GFR (Non-Af Amer) 32 (> 60) L 05/17/18 03:15 BUN/Creatinine Ratio 28 (6-26) H 05/17/18 03:15 Calculated Osmolality 303 (280-300) H 05/17/18 03:15 Lactic Acid 3.6 mmol/L (0.5-2.2) H 05/14/18 20:40 Calcium 7.5 mg/dL (8.6-10.3) L 05/17/18 03:15 Venous Ioniz Calcium 1.11 mmol/L (1.15-1.35) L 05/17/18 03:21 Phosphorus 2.6 mg/dL (2.7-4.5) L 05/17/18 03:15 Direct Bilirubin 0.3 mg/dL (0.0-0.2) H 05/14/18 02:57 AST 43 Units/L (13-39) H 05/14/18 06:57 Troponin I 0.07 ng/mL (< 0.04) H* 05/14/18 06:57 Serum Total Protein 5.6 g/dL (6.4-8.9) L 05/14/18 06:57 Albumin 2.4 g/dL (3.5-5.7) L 05/14/18 06:57 Albumin/Globulin Ratio 0.8 (1.1-2.2) L 05/14/18 06:57 Urine Clarity Cloudy (Clear) A 05/14/18 02:06 Urine Protein 30 mg/dL (Neg-Trace) H 05/14/18 02:06 Urine Bilirubin Small (Negative) H 05/14/18 02:06 Ur Leukocyte Esterase Large (Negative) H 05/14/18 02:06 Urine Microscopic RBC 3-5 per hpf (0-3) H 05/14/18 02:06 Urine Microscopic WBC 15-30 per hpf (0-3) H 05/14/18 02:06 Ur Squamous Epith Cells Moderate per lpf (None-Few) H 05/14/18 02:06 Urine Bacteria Moderate per hpf (None-Few) H 05/14/18 02:06 Ur Culture Indicated? 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 - Clinical Findings Intake & Output: Intake & Output 05/17/18 05/17/18 05/17/18 07:59 15:59 23:59 Intake Total 927 / 927 908 / 908 Output Total 275 / 275 350 / 350 Balance 652 / 652 558 / 558 Consult Discharge Plan - Plan Referrals: Albertina Huerta MD [Primary Care Provider] - - Attending Attestation I saw and evaluated this patient and my medical decision-making was reviewed with the Resident Physician. I agree with the documented findings, disposition and treatment plan as described except to the extent set forth below. We independently had [id number] contact with the patient I spent 40 minutes of Critical Care time with this patient. It involved decision making of high complexity to assess, manipulate, and support vital organ system failure and/or to prevent further life threatening deterioration of the patient's condition. The time involved in the performance of separately reportable procedures was not counted toward critical care time. Patient seen and examined at bedside Labs, radiology, chart personally reviewed. Management was reviewed during multidisciplinary critical care rounds. 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 Cards: She was in septic shock on Levothroid with minimal requirement. To liberate from vasopressor by today . FEN-GI: Diet as per nutrition. Renal: Acute kidney injury . Creatinine is trending down urine output is picking up ID: To continue broad-spectrum antibiotics sputum growing MRSA and Klebsiella Heme/Onc: Continue DVT prophylaxis Endo: Glucose Monitored Integ/MSK: Skin Care per routine ICU Nursing Protocol to prevent ulcers. Lines: All lines examined without evidence of infection : Dispo: Critically ill updated her daughter about her current clinical status. CODE: Full code <Dimitrios Fleming N - Last Filed: 05/17/18 16:55> Date of Encounter: 05/17/18 Time of Encounter: 09:14 Assessment and Plan (1) Acute respiratory failure with hypoxia Current Visit: Yes Status: Acute Secondary pneumonia. Adequate oxygen saturation, currently on ventilator. (2) Healthcare-associated pneumonia Current Visit: Yes Status: Acute White blood cell count is trended down to 15.0, neutrophils 13 Sputum cultures grew MRSA, and gram-negative rods Currently being treated with vancomycin and Zosyn Continue antibiotic therapy and follow cultures (3) Septic shock Current Visit: Yes Status: Acute Patient is currently on levophed, this morning she was at 2.5mcg. Sputum cultures grew MRSA and Klebsiella, patient is on apropriate antibiotics. May consider deescalating tomorrow Urine culture grew marjan Currently not on vasopressor, will go up on levophed if necessary Arterial line placed yesterday Continue to monitor blood pressure and adjust vasopressors as necessary. Attempt to wean vasopressors if possible (4) GEORGI (acute kidney injury) Current Visit: No Status: Acute GEORGI most likely secondary to sepsis and dehydration Creatinine this morning has trended down to 1.58 Continue to monitor (5) DVT prophylaxis Current Visit: No Status: Acute Continue heparin Subjective Principal diagnosis: Dehydration, sepsis, pneumonia Interval history: Patient seen and examined this morning at bedside with attending present. Patient remains on ventilator and pressors. Sputum grew MRSA and patient is on vancomycin at this time. Her white blood cell count is trending down, as is her creatinine. Her sodium is staying within normal range at 141. She is currently on 2.5 mcg of norepinephrine. Objective PUL Vital signs: Last Vital Signs Temp 96.7 F L 05/17/18 08:04 Pulse 92 05/17/18 08:00 Resp 18 05/17/18 08:00 BP 86/50 05/17/18 08:00 Pulse Ox 96 05/17/18 08:00 General appearance: other (On ventilator) Auscultation: bilateral: diminished breath sounds Cardiovascular: regular rate and rhythm Gastrointestinal: normoactive bowel sounds, soft Integumentary: normal Extremities: edema Ventilator Settings Ventilator Settings: Ventilator Settings, Last 8 Hours Ventilator Tidal Volume 400 Setting Ventilator Tidal Volume 400 Setting Ventilator Tidal Volume 400 Setting Ventilator Tidal Volume 400 Setting Ventilator Tidal Volume 400 Setting Ventilator Tidal Volume 400 Setting Ventilator Tidal Volume 400 Setting Ventilator Tidal Volume 400 Setting Ventilator Tidal Volume 400 Setting Ventilator Tidal Volume 400 Setting Ventilator Respiratory Rate 18 Setting Ventilator Respiratory Rate 18 Setting Ventilator Respiratory Rate 18 Setting Ventilator Respiratory Rate 18 Setting Ventilator Respiratory Rate 18 Setting Ventilator Respiratory Rate 18 Setting Ventilator Respiratory Rate 18 Setting Ventilator Respiratory Rate 18 Setting Ventilator Respiratory Rate 18 Setting Ventilator Respiratory Rate 18 Setting Actual Respiratory Rate 18 Actual Respiratory Rate 18 Actual Respiratory Rate 18 Actual Respiratory Rate 18 Actual Respiratory Rate 18 Actual Respiratory Rate 18 Actual Respiratory Rate 18 Actual Respiratory Rate 18 Actual Respiratory Rate 18 Actual Respiratory Rate 18 Positive End Expiratory 5 Pressure Positive End Expiratory 5 Pressure Positive End Expiratory 5 Pressure Positive End Expiratory 5 Pressure Positive End Expiratory 5 Pressure Positive End Expiratory 5 Pressure Positive End Expiratory 5 Pressure Positive End Expiratory 5 Pressure Positive End Expiratory 5 Pressure Positive End Expiratory 5 Pressure Peak Inspiratory Airway 24 Pressure Peak Inspiratory Airway 24 Pressure Peak Inspiratory Airway 25 Pressure Peak Inspiratory Airway 23 Pressure Peak Inspiratory Airway 23 Pressure Peak Inspiratory Airway 24 Pressure Peak Inspiratory Airway 24 Pressure Peak Inspiratory Airway 24 Pressure Peak Inspiratory Airway 24 Pressure Peak Inspiratory Airway 24 Pressure Results - Laboratory Findings CBC and BMP: 05/17/18 03:15 05/17/18 03:15 ABG ABG pH 7.34 pH Units (7.32-7.45) 05/16/18 05:15 ABG pCO2 34 mmHg (35-45) L 05/16/18 05:15 ABG pO2 113 mmHg (85-104) H 05/16/18 05:15 ABG O2 Saturation 98 % (95-98) 05/16/18 05:15 PT/INR, D-dimer PT 18.8 Seconds (9.4-12.1) H 05/14/18 06:51 Abnormal lab findings: Abnormal lab results WBC 15.0 K/mcL (4.3-11.1) H 05/17/18 03:15 RBC 3.00 M/mcL (3.82-4.97) L 05/17/18 03:15 Hgb 8.8 g/dL (11.5-15.4) L 05/17/18 03:15 Hct 26.6 % (35.3-44.9) L 05/17/18 03:15 RDW 17.9 % (11.5-14.5) H 05/17/18 03:15 Plt Count 57 K/mcL (140-400) L 05/17/18 03:15 Band Neutrophils % 10.0 % (0-4) H 05/14/18 06:57 Neutrophils # 13.0 K/mcL (1.6-8.9) H 05/17/18 03:15 Nucleated RBCs/100 WBC 0.1 /100 WBC (0) H 05/17/18 03:15 Toxic Granulation Present (Not Present) A 05/16/18 03:00 Toxic Vacuolation Present (Not Present) A 05/15/18 03:15 Platelet Estimate Decreased (Normal) L 05/17/18 03:15 Immature Plt Fraction 9.0 % (1.1-6.1) H 05/17/18 03:15 Polychromasia 1+ (Not Present) A 05/14/18 03:26 Hypochromasia Present (Not Present) A 05/17/18 03:15 Poikilocytosis 1+ (Not Present) A 05/16/18 03:00 Anisocytosis 1+ (Not Present) A 05/17/18 03:15 Macrocytosis Present (Not Present) A 05/17/18 03:15 PT 18.8 Seconds (9.4-12.1) H 05/14/18 06:51 APTT 22.5 Seconds (26.0-36.0) L 05/14/18 06:51 ABG pCO2 34 mmHg (35-45) L 05/16/18 05:15 ABG pO2 113 mmHg (85-104) H 05/16/18 05:15 ABG HCO3 18 mEq/L (21-27) L 05/16/18 05:15 ABG Total CO2 19 mEq/L (20-26) L 05/16/18 05:15 ABG Base Excess -7 mEq/L (-2 to 3) L 05/16/18 05:15 Chloride 117 mEq/L (98-107) H 05/17/18 03:15 Carbon Dioxide 17 mEq/L (23-29) L 05/17/18 03:15 BUN 44 mg/dL (8-23) H 05/17/18 03:15 Creatinine 1.58 mg/dL (0.60-1.20) H 05/17/18 03:15 Est GFR ( Amer) 38 (> 60) L 05/17/18 03:15 Est GFR (Non-Af Amer) 32 (> 60) L 05/17/18 03:15 BUN/Creatinine Ratio 28 (6-26) H 05/17/18 03:15 POC Glucose 117 mg/dL (70-99) H 05/16/18 23:20 Calculated Osmolality 303 (280-300) H 05/17/18 03:15 Lactic Acid 3.6 mmol/L (0.5-2.2) H 05/14/18 20:40 Calcium 7.5 mg/dL (8.6-10.3) L 05/17/18 03:15 Venous Ioniz Calcium 1.11 mmol/L (1.15-1.35) L 05/17/18 03:21 Phosphorus 2.6 mg/dL (2.7-4.5) L 05/17/18 03:15 Direct Bilirubin 0.3 mg/dL (0.0-0.2) H 05/14/18 02:57 AST 43 Units/L (13-39) H 05/14/18 06:57 Troponin I 0.07 ng/mL (< 0.04) H* 05/14/18 06:57 Serum Total Protein 5.6 g/dL (6.4-8.9) L 05/14/18 06:57 Albumin 2.4 g/dL (3.5-5.7) L 05/14/18 06:57 Albumin/Globulin Ratio 0.8 (1.1-2.2) L 05/14/18 06:57 Urine Clarity Cloudy (Clear) A 05/14/18 02:06 Urine Protein 30 mg/dL (Neg-Trace) H 05/14/18 02:06 Urine Bilirubin Small (Negative) H 05/14/18 02:06 Ur Leukocyte Esterase Large (Negative) H 05/14/18 02:06 Urine Microscopic RBC 3-5 per hpf (0-3) H 05/14/18 02:06 Urine Microscopic WBC 15-30 per hpf (0-3) H 05/14/18 02:06 Ur Squamous Epith Cells Moderate per lpf (None-Few) H 05/14/18 02:06 Urine Bacteria Moderate per hpf (None-Few) H 05/14/18 02:06 Ur Culture Indicated? 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 - Clinical Findings Intake & Output: Intake & Output 05/16/18 05/17/18 05/17/18 23:59 07:59 15:59 Intake Total 702 / 702 623 / 623 Output Total 650 / 650 275 / 275 200 / 200 Balance 52 / 52 348 / 348 -200 / -200 Weight 81.9 kg
[2018-05-17] MEDS: Norepinephrine 16 MG in D5% in Water 500 ML IVC SCH (19:35)
[2018-05-17] MEDS: Phenylephrine 10 MG in D5% in Water 250 ML IVC SCH (23:26)
[2018-05-17] MEDS: Vasopressin 40 UNIT in D5% in Water 100 ML IV SCH (23:26)
[2018-05-18] MEDS: Lacri-Lube 3.5 GM TUBE BOTH EYES SCH ×5 (03:22→20:51)
[2018-05-18] MEDS: FentaNYL (PF) 1,000 MCG in 0.9 % Sodium Chloride 80 ML IVC SCH ×3 (03:22→17:58)
[2018-05-18] MEDS: Ipratropium/Albuterol Neb 3 ML IH SCH ×6 (03:24→23:37)
[2018-05-18 03:33] LABS: VBG Ionized Calcium 1.07 mmol/L (1.15-1.35)
[2018-05-18 03:35] LABS: Basophils % 0.1 %; Eosinophils # 0.1 K/mcL (0.0-0.6); Eosinophils % 0.9 %; Hematocrit 28.3 % (35.3-44.9); Immature Granulocytes % 1.3 % (0-4); Lymphocytes # 0.8 K/mcL (0.6-4.6); Lymphocytes % 5.1 %; Mean Corpuscular HGB Conc 31.8 g/dL (31.6-35.5); Mean Corpuscular Hemoglobin 28.5 pg (28.0-33.3); Mean Corpuscular Volume 89.6 fL (83.0-100.0); Mean Platelet Volume 12.4 fL (9.4-12.4); Monocytes # 0.8 K/mcL (0.0-1.3); Monocytes % 5.3 %; Neutrophils # 12.9 K/mcL (1.6-8.9); Nucleated Red Blood Cells 0.1 /100 WBC (0); Red Blood Count 3.16 M/mcL (3.82-4.97); Red Cell Distribution Width 18.8 % (11.5-14.5); Segmented Neutrophils % 87.3 %
[2018-05-18 03:36] LABS: Platelet Count 82 K/mcL (140-400)
[2018-05-18 03:55] LABS: Calcium 7.2 mg/dL (8.6-10.3); Magnesium 1.9 mg/dL (1.6-2.6); Potassium 4.8 mEq/L (3.5-5.1)
[2018-05-18] MEDS: Dexmedetomidine HCl 400 MCG/100 ML MLS IVC SCH ×3 (04:39→22:07)
[2018-05-18] MEDS: *HR* Heparin 5,000 UNIT/ML VIAL SQ SCH ×2 (05:18→17:15)
[2018-05-18] MEDS: Piperacillin/Tazobactam 3.375 GM in 0.9 % Sodium Chloride Mini Bag 100 ML IVPB SCH ×2 (05:18→17:15)
[2018-05-18 07:34] LABS: ABG Base Excess -5 mEq/L (-2 to 3); ABG HCO3 19 mEq/L (21-27); ABG Oxygen Saturation 98 % (95-98); ABG PCO2 31 mmHg (35-45); ABG PO2 95 mmHg (85-104); ABG TCO2 20 mEq/L (20-26); Blood Gas Modality PRVC; Blood Gas Respiration Rate 18; Blood Gas VT 400 cc
[2018-05-18] MEDS: Chlorhexidine Rinse 15 ML MOUTHWASH MM SCH ×2 (08:02→20:50)
[2018-05-18] MEDS: Pantoprazole 40 MG VIAL IVP SCH (08:02)
[2018-05-18] MEDS ORDERED: Albumin 25% 25gram/100mL 25 GM/100 ML IV.SOLN IVPB ONE (09:48)
[2018-05-18] MEDS ORDERED: Levothyroxine Sodium 100 MCG VIAL IVP SCH (11:15)
[2018-05-18] MEDS ORDERED: Sennosides/Docusate Sodium TABLET PO PRN (11:16)
--- NOTE | 2018-05-18 11:22 | Pulmonology Progress Note ---
<Dimitrios Fleming N - Last Filed: 05/18/18 17:39> Date of Encounter: 05/18/18 Time of Encounter: 11:22 Assessment and Plan (1) Acute respiratory failure with hypoxia Current Visit: Yes Status: Acute Secondary to MRSA pneumonia and Klebsiella Patient is on adequate antibiotic therapy She remains on ventilator support Patient is still receiving pressors for hypotension (2) Healthcare-associated pneumonia Current Visit: Yes Status: Acute White blood cell count is trended down to 14.8 Sputum cultures grew MRSA and Klebsiella Currently being treated with vancomycin and Zosyn Continue antibiotic therapy (3) Septic shock Current Visit: Yes Status: Acute Patient is currently on levophed, this morning she was at 5mcg. We will try to wean pressors off. We will start Midodrin 5 mg 3 times a day and give patient 25% albumin. (4) GEORGI (acute kidney injury) Current Visit: No Status: Acute GEORGI most likely secondary to sepsis and dehydration Creatinine this morning has trended down to 1.37 Continue to monitor (5) DVT prophylaxis Current Visit: No Status: Acute Continue heparin Subjective Principal diagnosis: Dehydration, sepsis, pneumonia Interval history: Patient seen and examined at bedside this morning with the attending present. Her white blood cell count is slightly decreased to 14.8. She is still requiring pressors, she was on 5mcg levophed this morning. She is currently being treated with vancomycin and Zosyn for MRSA pneumonia and Klebsiella.. Objective PUL Vital signs: Last Vital Signs Temp 97.7 F 05/18/18 08:48 Pulse 89 05/18/18 11:00 Resp 24 05/18/18 11:12 BP 100/60 05/18/18 11:12 Pulse Ox 97 05/18/18 11:12 General appearance: other (Intubated, sedated) Auscultation: bilateral: diminished breath sounds Cardiovascular: regular rate and rhythm Gastrointestinal: normoactive bowel sounds Integumentary: normal Ventilator Settings Ventilator Settings: Ventilator Settings, Last 8 Hours Ventilator Tidal Volume 400 Setting Ventilator Tidal Volume 400 Setting Ventilator Tidal Volume 400 Setting Ventilator Tidal Volume 400 Setting Ventilator Tidal Volume 400 Setting Ventilator Tidal Volume 400 Setting Ventilator Tidal Volume 400 Setting Ventilator Tidal Volume 400 Setting Ventilator Tidal Volume 400 Setting Ventilator Tidal Volume 400 Setting Ventilator Tidal Volume 400 Setting Ventilator Tidal Volume 400 Setting Ventilator Tidal Volume 400 Setting Ventilator Tidal Volume 400 Setting Ventilator Respiratory Rate 18 Setting Ventilator Respiratory Rate 18 Setting Ventilator Respiratory Rate 18 Setting Ventilator Respiratory Rate 18 Setting Ventilator Respiratory Rate 18 Setting Ventilator Respiratory Rate 18 Setting Ventilator Respiratory Rate 18 Setting Ventilator Respiratory Rate 18 Setting Ventilator Respiratory Rate 18 Setting Ventilator Respiratory Rate 18 Setting Ventilator Respiratory Rate 18 Setting Ventilator Respiratory Rate 18 Setting Ventilator Respiratory Rate 18 Setting Ventilator Respiratory Rate 18 Setting Actual Respiratory Rate 24 Actual Respiratory Rate 24 Actual Respiratory Rate 23 Actual Respiratory Rate 22 Actual Respiratory Rate 18 Actual Respiratory Rate 18 Actual Respiratory Rate 19 Actual Respiratory Rate 18 Actual Respiratory Rate 22 Actual Respiratory Rate 19 Actual Respiratory Rate 19 Actual Respiratory Rate 19 Actual Respiratory Rate 18 Positive End Expiratory 5 Pressure Positive End Expiratory 5 Pressure Positive End Expiratory 5 Pressure Positive End Expiratory 5 Pressure Positive End Expiratory 5 Pressure Positive End Expiratory 5 Pressure Positive End Expiratory 5 Pressure Positive End Expiratory 5 Pressure Positive End Expiratory 5 Pressure Positive End Expiratory 5 Pressure Positive End Expiratory 5 Pressure Positive End Expiratory 5 Pressure Positive End Expiratory 5 Pressure Positive End Expiratory 5 Pressure Peak Inspiratory Airway 9 Pressure Peak Inspiratory Airway 20 Pressure Peak Inspiratory Airway 20 Pressure Peak Inspiratory Airway 19 Pressure Peak Inspiratory Airway 20 Pressure Peak Inspiratory Airway 20 Pressure Peak Inspiratory Airway 20 Pressure Peak Inspiratory Airway 20 Pressure Peak Inspiratory Airway 24 Pressure Peak Inspiratory Airway 24 Pressure Peak Inspiratory Airway 22 Pressure Peak Inspiratory Airway 22 Pressure Peak Inspiratory Airway 22 Pressure Results - Laboratory Findings CBC and BMP: 05/18/18 03:15 05/18/18 03:15 ABG ABG pH 7.40 pH Units (7.32-7.45) 05/18/18 07:30 ABG pCO2 31 mmHg (35-45) L 05/18/18 07:30 ABG pO2 95 mmHg (85-104) 05/18/18 07:30 ABG O2 Saturation 98 % (95-98) 05/18/18 07:30 PT/INR, D-dimer PT 18.8 Seconds (9.4-12.1) H 05/14/18 06:51 Abnormal lab findings: Abnormal lab results WBC 14.8 K/mcL (4.3-11.1) H 05/18/18 03:15 RBC 3.16 M/mcL (3.82-4.97) L 05/18/18 03:15 Hgb 9.0 g/dL (11.5-15.4) L 05/18/18 03:15 Hct 28.3 % (35.3-44.9) L 05/18/18 03:15 RDW 18.8 % (11.5-14.5) H 05/18/18 03:15 Plt Count 82 K/mcL (140-400) L 05/18/18 03:15 Band Neutrophils % 10.0 % (0-4) H 05/14/18 06:57 Neutrophils # 12.9 K/mcL (1.6-8.9) H 05/18/18 03:15 Nucleated RBCs/100 WBC 0.1 /100 WBC (0) H 05/18/18 03:15 Toxic Granulation Present (Not Present) A 05/16/18 03:00 Toxic Vacuolation Present (Not Present) A 05/15/18 03:15 Platelet Estimate Decreased (Normal) L 05/17/18 03:15 Immature Plt Fraction 9.0 % (1.1-6.1) H 05/17/18 03:15 Polychromasia 1+ (Not Present) A 05/14/18 03:26 Hypochromasia Present (Not Present) A 05/17/18 03:15 Poikilocytosis 1+ (Not Present) A 05/16/18 03:00 Anisocytosis 1+ (Not Present) A 05/17/18 03:15 Macrocytosis Present (Not Present) A 05/17/18 03:15 PT 18.8 Seconds (9.4-12.1) H 05/14/18 06:51 APTT 22.5 Seconds (26.0-36.0) L 05/14/18 06:51 ABG pCO2 31 mmHg (35-45) L 05/18/18 07:30 ABG HCO3 19 mEq/L (21-27) L 05/18/18 07:30 ABG Base Excess -5 mEq/L (-2 to 3) L 05/18/18 07:30 Chloride 119 mEq/L (98-107) H 05/18/18 03:15 Carbon Dioxide 18 mEq/L (23-29) L 05/18/18 03:15 BUN 28 mg/dL (8-23) H 05/18/18 03:15 Creatinine 1.37 mg/dL (0.60-1.20) H 05/18/18 03:15 Est GFR ( Amer) 45 (> 60) L 05/18/18 03:15 Est GFR (Non-Af Amer) 37 (> 60) L 05/18/18 03:15 Glucose 153 mg/dL (70-105) H 05/18/18 03:15 POC Glucose 114 mg/dL (70-99) H 05/17/18 23:34 Calculated Osmolality 303 (280-300) H 05/18/18 03:15 Lactic Acid 3.6 mmol/L (0.5-2.2) H 05/14/18 20:40 Calcium 7.2 mg/dL (8.6-10.3) L 05/18/18 03:15 Venous Ioniz Calcium 1.07 mmol/L (1.15-1.35) L 05/18/18 03:28 Direct Bilirubin 0.3 mg/dL (0.0-0.2) H 05/14/18 02:57 AST 43 Units/L (13-39) H 05/14/18 06:57 Troponin I 0.07 ng/mL (< 0.04) H* 05/14/18 06:57 Serum Total Protein 5.6 g/dL (6.4-8.9) L 05/14/18 06:57 Albumin 2.4 g/dL (3.5-5.7) L 05/14/18 06:57 Albumin/Globulin Ratio 0.8 (1.1-2.2) L 05/14/18 06:57 Urine Clarity Cloudy (Clear) A 05/14/18 02:06 Urine Protein 30 mg/dL (Neg-Trace) H 05/14/18 02:06 Urine Bilirubin Small (Negative) H 05/14/18 02:06 Ur Leukocyte Esterase Large (Negative) H 05/14/18 02:06 Urine Microscopic RBC 3-5 per hpf (0-3) H 05/14/18 02:06 Urine Microscopic WBC 15-30 per hpf (0-3) H 05/14/18 02:06 Ur Squamous Epith Cells Moderate per lpf (None-Few) H 05/14/18 02:06 Urine Bacteria Moderate per hpf (None-Few) H 05/14/18 02:06 Ur Culture Indicated? 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 - Diagnostic Findings Additional studies: KUB, no evidence of ileus - Clinical Findings Intake & Output: Intake & Output 05/17/18 05/18/18 05/18/18 23:59 07:59 15:59 Intake Total 727 / 727 614 / 614 200 / 200 Output Total 625 / 625 250 / 250 450 / 450 Balance 102 / 102 364 / 364 -250 / -250 Weight 81.2 kg Consult Discharge Plan - Plan Referrals: Albertina Huerta MD [Primary Care Provider] - <Jovita Ledezma - Last Filed: 05/18/18 23:06> Date of Encounter: 05/18/18 Assessment and Plan (1) Acute respiratory failure with hypoxia Current Visit: Yes Status: Acute (2) Healthcare-associated pneumonia Current Visit: Yes Status: Acute (3) Septic shock Current Visit: Yes Status: Acute (4) GEORGI (acute kidney injury) Current Visit: No Status: Acute (5) DVT prophylaxis Current Visit: Yes Status: Acute Objective PUL Vital signs: Last Vital Signs Temp 98.5 F 05/18/18 19:00 Pulse 78 05/18/18 22:00 Resp 18 05/18/18 22:00 BP 103/67 05/18/18 22:00 Pulse Ox 98 05/18/18 22:00 Ventilator Settings Ventilator Settings: Ventilator Settings, Last 8 Hours Ventilator Tidal Volume 400 Setting Ventilator Tidal Volume 400 Setting Ventilator Tidal Volume 400 Setting Ventilator Tidal Volume 400 Setting Ventilator Tidal Volume 400 Setting Ventilator Tidal Volume 400 Setting Ventilator Tidal Volume 400 Setting Ventilator Tidal Volume 400 Setting Ventilator Tidal Volume 400 Setting Ventilator Tidal Volume 400 Setting Ventilator Respiratory Rate 14 Setting Ventilator Respiratory Rate 14 Setting Ventilator Respiratory Rate 14 Setting Ventilator Respiratory Rate 18 Setting Ventilator Respiratory Rate 18 Setting Ventilator Respiratory Rate 18 Setting Ventilator Respiratory Rate 18 Setting Ventilator Respiratory Rate 18 Setting Ventilator Respiratory Rate 18 Setting Actual Respiratory Rate 18 Actual Respiratory Rate 18 Actual Respiratory Rate 18 Actual Respiratory Rate 19 Actual Respiratory Rate 18 Actual Respiratory Rate 19 Actual Respiratory Rate 20 Actual Respiratory Rate 20 Actual Respiratory Rate 22 Positive End Expiratory 5 Pressure Positive End Expiratory 5 Pressure Positive End Expiratory 5 Pressure Positive End Expiratory 5 Pressure Positive End Expiratory 5 Pressure Positive End Expiratory 5 Pressure Positive End Expiratory 5 Pressure Positive End Expiratory 5 Pressure Positive End Expiratory 5 Pressure Peak Inspiratory Airway 25 Pressure Peak Inspiratory Airway 25 Pressure Peak Inspiratory Airway 25 Pressure Peak Inspiratory Airway 24 Pressure Peak Inspiratory Airway 24 Pressure Peak Inspiratory Airway 21 Pressure Peak Inspiratory Airway 23 Pressure Peak Inspiratory Airway 21 Pressure Peak Inspiratory Airway 21 Pressure Results - Laboratory Findings CBC and BMP: 05/18/18 03:15 05/18/18 03:15 ABG ABG pH 7.40 pH Units (7.32-7.45) 05/18/18 07:30 ABG pCO2 31 mmHg (35-45) L 05/18/18 07:30 ABG pO2 95 mmHg (85-104) 05/18/18 07:30 ABG O2 Saturation 98 % (95-98) 05/18/18 07:30 PT/INR, D-dimer PT 18.8 Seconds (9.4-12.1) H 05/14/18 06:51 Abnormal lab findings: Abnormal lab results WBC 14.8 K/mcL (4.3-11.1) H 05/18/18 03:15 RBC 3.16 M/mcL (3.82-4.97) L 05/18/18 03:15 Hgb 9.0 g/dL (11.5-15.4) L 05/18/18 03:15 Hct 28.3 % (35.3-44.9) L 05/18/18 03:15 RDW 18.8 % (11.5-14.5) H 05/18/18 03:15 Plt Count 82 K/mcL (140-400) L 05/18/18 03:15 Band Neutrophils % 10.0 % (0-4) H 05/14/18 06:57 Neutrophils # 12.9 K/mcL (1.6-8.9) H 05/18/18 03:15 Nucleated RBCs/100 WBC 0.1 /100 WBC (0) H 05/18/18 03:15 Toxic Granulation Present (Not Present) A 05/16/18 03:00 Toxic Vacuolation Present (Not Present) A 05/15/18 03:15 Platelet Estimate Decreased (Normal) L 05/17/18 03:15 Immature Plt Fraction 9.0 % (1.1-6.1) H 05/17/18 03:15 Polychromasia 1+ (Not Present) A 05/14/18 03:26 Hypochromasia Present (Not Present) A 05/17/18 03:15 Poikilocytosis 1+ (Not Present) A 05/16/18 03:00 Anisocytosis 1+ (Not Present) A 05/17/18 03:15 Macrocytosis Present (Not Present) A 05/17/18 03:15 PT 18.8 Seconds (9.4-12.1) H 05/14/18 06:51 APTT 22.5 Seconds (26.0-36.0) L 05/14/18 06:51 ABG pCO2 31 mmHg (35-45) L 05/18/18 07:30 ABG HCO3 19 mEq/L (21-27) L 05/18/18 07:30 ABG Base Excess -5 mEq/L (-2 to 3) L 05/18/18 07:30 Chloride 119 mEq/L (98-107) H 05/18/18 03:15 Carbon Dioxide 18 mEq/L (23-29) L 05/18/18 03:15 BUN 28 mg/dL (8-23) H 05/18/18 03:15 Creatinine 1.37 mg/dL (0.60-1.20) H 05/18/18 03:15 Est GFR ( Amer) 45 (> 60) L 05/18/18 03:15 Est GFR (Non-Af Amer) 37 (> 60) L 05/18/18 03:15 Glucose 153 mg/dL (70-105) H 05/18/18 03:15 POC Glucose 155 mg/dL (70-99) H 05/18/18 11:36 Calculated Osmolality 303 (280-300) H 05/18/18 03:15 Lactic Acid 3.6 mmol/L (0.5-2.2) H 05/14/18 20:40 Calcium 7.2 mg/dL (8.6-10.3) L 05/18/18 03:15 Venous Ioniz Calcium 1.07 mmol/L (1.15-1.35) L 05/18/18 03:28 Direct Bilirubin 0.3 mg/dL (0.0-0.2) H 05/14/18 02:57 AST 43 Units/L (13-39) H 05/14/18 06:57 Troponin I 0.07 ng/mL (< 0.04) H* 05/14/18 06:57 Serum Total Protein 5.6 g/dL (6.4-8.9) L 05/14/18 06:57 Albumin 2.4 g/dL (3.5-5.7) L 05/14/18 06:57 Albumin/Globulin Ratio 0.8 (1.1-2.2) L 05/14/18 06:57 Urine Clarity Cloudy (Clear) A 05/14/18 02:06 Urine Protein 30 mg/dL (Neg-Trace) H 05/14/18 02:06 Urine Bilirubin Small (Negative) H 05/14/18 02:06 Ur Leukocyte Esterase Large (Negative) H 05/14/18 02:06 Urine Microscopic RBC 3-5 per hpf (0-3) H 05/14/18 02:06 Urine Microscopic WBC 15-30 per hpf (0-3) H 05/14/18 02:06 Ur Squamous Epith Cells Moderate per lpf (None-Few) H 05/14/18 02:06 Urine Bacteria Moderate per hpf (None-Few) H 05/14/18 02:06 Ur Culture Indicated? 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 - Clinical Findings Intake & Output: Intake & Output 05/18/18 05/18/18 05/18/18 07:59 15:59 23:59 Intake Total 614 / 614 300 / 300 1054 / 1054 Output Total 250 / 250 1300 / 1300 525 / 525 Balance 364 / 364 -1000 / -1000 529 / 529 - Attending Attestation - Attending Attestation I saw and evaluated this patient and my medical decision-making was reviewed with the Resident Physician. I agree with the documented findings, disposition and treatment plan as described except to the extent set forth below. We independently had [id number] contact with the patient Patient seen and examined at bedside Labs, radiology, chart personally reviewed. Management was reviewed during multidisciplinary critical care rounds. STRATEGY EXECUTION CONSULTANT: Patient looks little bit agitated but she is following commands most likely due to toxic/metabolic encephalopathy due to underlying sepsis Pulm: Patient has patient mismatch needs ventilatory support low tidal volume strategy acceptable oxygenation and ventilation secondary to MRSA pneumonia and Klebsiella patient is on appropriate antibiotics. Cards: She was in septic shock on Levo phed with minimal requirement. To liberate from vasopressor not able to do yesterday will try some midodrine and albumin FEN-GI: Diet as per nutrition. patient has large NG output to hold tube feed . Renal: Acute kidney injury . Creatinine is trending down urine output is picking up ID: To continue broad-spectrum antibiotics sputum growing MRSA and Klebsiella Heme/Onc: Continue DVT prophylaxis Endo: Glucose Monitored Integ/MSK: Skin Care per routine ICU Nursing Protocol to prevent ulcers. Lines: All lines examined without evidence of infection : Dispo: Critically ill updated her daughter about her current clinical status. CODE: Full code
[2018-05-18] MEDS: Levothyroxine Sodium 100 MCG VIAL IVP SCH (13:19)
[2018-05-18] MEDS: Phenylephrine 10 MG in D5% in Water 250 ML IVC SCH (20:25)
[2018-05-18] MEDS: Vasopressin 40 UNIT in D5% in Water 100 ML IV SCH (20:25)
[2018-05-18] MEDS: Norepinephrine 4 MG in D5% in Water 250 ML IVC SCH (22:09)
[2018-05-19] MEDS: FentaNYL (PF) 1,000 MCG in 0.9 % Sodium Chloride 80 ML IVC SCH ×3 (00:57→14:30)
[2018-05-19] MEDS: Lacri-Lube 3.5 GM TUBE BOTH EYES SCH ×6 (02:34→21:46)
[2018-05-19] MEDS: Ipratropium/Albuterol Neb 3 ML IH SCH ×5 (03:30→19:56)
[2018-05-19 03:35] LABS: Hemoglobin 8.5 g/dL (11.5-15.4)
[2018-05-19 03:37] LABS: Basophils % 0.2 %; Eosinophils # 0.3 K/mcL (0.0-0.6); Eosinophils % 3.7 %; Hematocrit 26.6 % (35.3-44.9); Immature Granulocytes % 2.2 % (0-4); Immature Platelets 5.4 % (1.1-6.1); Lymphocytes # 1.3 K/mcL (0.6-4.6); Lymphocytes % 14.8 %; Mean Corpuscular Hemoglobin 28.8 pg (28.0-33.3); Mean Corpuscular Volume 90.2 fL (83.0-100.0); Mean Platelet Volume 11.4 fL (9.4-12.4); Monocytes # 0.7 K/mcL (0.0-1.3); Monocytes % 8.1 %; Neutrophils # 6.4 K/mcL (1.6-8.9); Platelet Count 84 K/mcL (140-400); Red Blood Count 2.95 M/mcL (3.82-4.97); Red Cell Distribution Width 19.1 % (11.5-14.5)
[2018-05-19 03:48] LABS: VBG Ionized Calcium 1.13 mmol/L (1.15-1.35)
[2018-05-19 04:00] LABS: Calcium 7.3 mg/dL (8.6-10.3); Potassium 4.5 mEq/L (3.5-5.1)
[2018-05-19 05:24] LABS: ABG Base Excess -5 mEq/L (-2 to 3); ABG HCO3 19 mEq/L (21-27); ABG Oxygen Saturation 97 % (95-98); ABG PCO2 32 mmHg (35-45); ABG PH 7.39 pH Units (7.32-7.45); ABG PO2 95 mmHg (85-104); ABG TCO2 20 mEq/L (20-26); Blood Gas Modality ASSIST CONTROL; Blood Gas Respiration Rate 18; Blood Gas VT 400 cc
[2018-05-19 05:39] LABS: Magnesium 1.7 mg/dL (1.6-2.6)
[2018-05-19] MEDS: *HR* Heparin 5,000 UNIT/ML VIAL SQ SCH ×2 (05:50→17:14)
[2018-05-19] MEDS: Piperacillin/Tazobactam 3.375 GM in 0.9 % Sodium Chloride Mini Bag 100 ML IVPB SCH ×2 (05:50→17:15)
[2018-05-19] MEDS: Dexmedetomidine HCl 400 MCG/100 ML MLS IVC SCH (07:07)
[2018-05-19] MEDS: Chlorhexidine Rinse 15 ML MOUTHWASH MM SCH ×2 (08:46→21:46)
[2018-05-19] MEDS: Levothyroxine Sodium 100 MCG VIAL IVP SCH (08:46)
[2018-05-19] MEDS: Pantoprazole 40 MG VIAL IVP SCH (08:47)
[2018-05-19] MEDS ORDERED: Albumin 25% 25gram/100mL 25 GM/100 ML IV.SOLN IVPB ONE (08:59)
--- NOTE | 2018-05-19 12:41 | Pulmonology Progress Note ---
<LonnieDimitrios N - Last Filed: 05/19/18 17:57> Date of Encounter: 05/19/18 Time of Encounter: 12:41 Assessment and Plan (1) Acute respiratory failure with hypoxia Current Visit: Yes Status: Acute Secondary to MRSA pneumonia and Klebsiella Patient is on adequate antibiotic therapy She remains on ventilator support trial of CPAP today, patient is tolerating it well Unable to wean pressors. Increasing Midodrin to 10 mg 3 times a day (2) Healthcare-associated pneumonia Current Visit: Yes Status: Acute White blood cell count is trended down to 14.8 Sputum cultures grew MRSA and Klebsiella Currently being treated with vancomycin and Zosyn Continue antibiotic therapy (3) Septic shock Current Visit: Yes Status: Acute Patient is currently on levophed, unable to wean pressors Received abdomen 25% Midodrin increased to 10 mg 3 times a day (4) GEORGI (acute kidney injury) Current Visit: No Status: Acute GEORGI most likely secondary to sepsis and dehydration Creatinine this morning has trended down to 1.18 Continue to monitor (5) DVT prophylaxis Current Visit: No Status: Acute Continue heparin Subjective Principal diagnosis: Dehydration, sepsis, pneumonia Interval history: Patient seen and examined at bedside this morning with the attending present. Her WBC count has returned to normal range and is at 9.0 today.. She is still requiring pressors and she is on 5 mg 3 times a day of Midodrin as well. She is currently being treated with vancomycin and Zosyn for MRSA pneumonia and Klebsiella. Creatinine has normalized and was at 1.18 this morning. She remains to be minimally responsive, opening eyes slightly to name and pain but does not follow any commands. Her sedation was decreased and the patient became agitated however continues to not follow commands or communicate. Visited with family today to explain patient's current status and a trial of CPAP was performed. patient is tolerating the CPAP currently. Objective PUL Vital signs: Last Vital Signs Temp 98.5 F 05/19/18 12:00 Pulse 79 05/19/18 12:00 Resp 18 05/19/18 12:00 BP 110/61 05/19/18 12:00 Pulse Ox 100 05/19/18 12:00 General appearance: agitated, other (Minimally responsive, opens eyes to her name and pain.) Auscultation: bilateral: rhonchi Cardiovascular: regular rate and rhythm Gastrointestinal: normoactive bowel sounds, soft Extremities: edema Ventilator Settings Ventilator Settings: Ventilator Settings, Last 8 Hours Ventilator Tidal Volume 400 Setting Ventilator Tidal Volume 400 Setting Ventilator Tidal Volume 400 Setting Ventilator Tidal Volume 400 Setting Ventilator Tidal Volume 400 Setting Ventilator Tidal Volume 400 Setting Ventilator Tidal Volume 400 Setting Ventilator Tidal Volume 400 Setting Ventilator Tidal Volume 400 Setting Ventilator Respiratory Rate 18 Setting Ventilator Respiratory Rate 18 Setting Ventilator Respiratory Rate 18 Setting Ventilator Respiratory Rate 18 Setting Ventilator Respiratory Rate 18 Setting Ventilator Respiratory Rate 18 Setting Ventilator Respiratory Rate 14 Setting Ventilator Respiratory Rate 14 Setting Ventilator Respiratory Rate 18 Setting Actual Respiratory Rate 18 Actual Respiratory Rate 18 Actual Respiratory Rate 20 Actual Respiratory Rate 18 Actual Respiratory Rate 18 Actual Respiratory Rate 18 Actual Respiratory Rate 19 Actual Respiratory Rate 19 Positive End Expiratory 5 Pressure Positive End Expiratory 5 Pressure Positive End Expiratory 5 Pressure Positive End Expiratory 5 Pressure Positive End Expiratory 5 Pressure Positive End Expiratory 5 Pressure Positive End Expiratory 5 Pressure Positive End Expiratory 5 Pressure Positive End Expiratory 5 Pressure Peak Inspiratory Airway 22 Pressure Peak Inspiratory Airway 26 Pressure Peak Inspiratory Airway 24 Pressure Peak Inspiratory Airway 21 Pressure Peak Inspiratory Airway 21 Pressure Peak Inspiratory Airway 22 Pressure Peak Inspiratory Airway 22 Pressure Peak Inspiratory Airway 29 Pressure Results - Laboratory Findings CBC and BMP: 05/19/18 03:20 05/19/18 03:20 ABG ABG pH 7.39 pH Units (7.32-7.45) 05/19/18 05:21 ABG pCO2 32 mmHg (35-45) L 05/19/18 05:21 ABG pO2 95 mmHg (85-104) 05/19/18 05:21 ABG O2 Saturation 97 % (95-98) 05/19/18 05:21 PT/INR, D-dimer PT 18.8 Seconds (9.4-12.1) H 05/14/18 06:51 Abnormal lab findings: Abnormal lab results RBC 2.95 M/mcL (3.82-4.97) L 05/19/18 03:20 Hgb 8.5 g/dL (11.5-15.4) L 05/19/18 03:20 Hct 26.6 % (35.3-44.9) L 05/19/18 03:20 RDW 19.1 % (11.5-14.5) H 05/19/18 03:20 Plt Count 84 K/mcL (140-400) L 05/19/18 03:20 Band Neutrophils % 10.0 % (0-4) H 05/14/18 06:57 Nucleated RBCs/100 WBC 0.1 /100 WBC (0) H 05/18/18 03:15 Toxic Granulation Present (Not Present) A 05/16/18 03:00 Toxic Vacuolation Present (Not Present) A 05/15/18 03:15 Platelet Estimate Decreased (Normal) L 05/17/18 03:15 Polychromasia 1+ (Not Present) A 05/14/18 03:26 Hypochromasia Present (Not Present) A 05/17/18 03:15 Poikilocytosis 1+ (Not Present) A 05/16/18 03:00 Anisocytosis 1+ (Not Present) A 05/17/18 03:15 Macrocytosis Present (Not Present) A 05/17/18 03:15 PT 18.8 Seconds (9.4-12.1) H 05/14/18 06:51 APTT 22.5 Seconds (26.0-36.0) L 05/14/18 06:51 ABG pCO2 32 mmHg (35-45) L 05/19/18 05:21 ABG HCO3 19 mEq/L (21-27) L 05/19/18 05:21 ABG Base Excess -5 mEq/L (-2 to 3) L 05/19/18 05:21 Chloride 119 mEq/L (98-107) H 05/19/18 03:20 Carbon Dioxide 19 mEq/L (23-29) L 05/19/18 03:20 Est GFR ( Amer) 54 (> 60) L 05/19/18 03:20 Est GFR (Non-Af Amer) 44 (> 60) L 05/19/18 03:20 Glucose 106 mg/dL (70-105) H 05/19/18 03:20 POC Glucose 105 mg/dL (70-99) H 05/19/18 11:43 Lactic Acid 3.6 mmol/L (0.5-2.2) H 05/14/18 20:40 Calcium 7.3 mg/dL (8.6-10.3) L 05/19/18 03:20 Venous Ioniz Calcium 1.13 mmol/L (1.15-1.35) L 05/19/18 03:46 Direct Bilirubin 0.3 mg/dL (0.0-0.2) H 05/14/18 02:57 AST 43 Units/L (13-39) H 05/14/18 06:57 Troponin I 0.07 ng/mL (< 0.04) H* 05/14/18 06:57 Serum Total Protein 5.6 g/dL (6.4-8.9) L 05/14/18 06:57 Albumin 2.4 g/dL (3.5-5.7) L 05/14/18 06:57 Albumin/Globulin Ratio 0.8 (1.1-2.2) L 05/14/18 06:57 Urine Clarity Cloudy (Clear) A 05/14/18 02:06 Urine Protein 30 mg/dL (Neg-Trace) H 05/14/18 02:06 Urine Bilirubin Small (Negative) H 05/14/18 02:06 Ur Leukocyte Esterase Large (Negative) H 05/14/18 02:06 Urine Microscopic RBC 3-5 per hpf (0-3) H 05/14/18 02:06 Urine Microscopic WBC 15-30 per hpf (0-3) H 05/14/18 02:06 Ur Squamous Epith Cells Moderate per lpf (None-Few) H 05/14/18 02:06 Urine Bacteria Moderate per hpf (None-Few) H 05/14/18 02:06 Ur Culture Indicated? YES (NO) A 05/14/18 02:06 - Clinical Findings Intake & Output: Intake & Output 05/18/18 05/19/18 05/19/18 23:59 07:59 15:59 Intake Total 1154 / 1154 300 / 300 584 / 584 Output Total 795 / 795 430 / 430 250 / 250 Balance 359 / 359 -130 / -130 334 / 334 Weight 82 kg Consult Discharge Plan - Plan Referrals: Albertina Huerta MD [Primary Care Provider] - <Jovita Ledezma - Last Filed: 05/20/18 12:04> Date of Encounter: 05/20/18 Assessment and Plan (1) Acute respiratory failure with hypoxia Current Visit: Yes Status: Acute (2) Healthcare-associated pneumonia Current Visit: Yes Status: Acute (3) Septic shock Current Visit: Yes Status: Acute (4) GEORGI (acute kidney injury) Current Visit: No Status: Acute (5) DVT prophylaxis Current Visit: Yes Status: Acute Objective PUL Vital signs: Last Vital Signs Temp 100.3 F H 05/19/18 19:20 Pulse 72 05/19/18 23:00 Resp 21 05/19/18 23:20 BP 98/43 05/19/18 23:20 Pulse Ox 97 05/19/18 23:20 Results - Laboratory Findings CBC and BMP: 05/20/18 04:00 05/19/18 03:20 ABG ABG pH 7.39 pH Units (7.32-7.45) 05/20/18 10:57 ABG pCO2 31 mmHg (35-45) L 05/20/18 10:57 ABG pO2 123 mmHg (85-104) H 05/20/18 10:57 ABG O2 Saturation 99 % (95-98) H 05/20/18 10:57 PT/INR, D-dimer PT 18.8 Seconds (9.4-12.1) H 05/14/18 06:51 Abnormal lab findings: Abnormal lab results RBC 2.91 M/mcL (3.82-4.97) L 05/20/18 04:00 Hgb 8.3 g/dL (11.5-15.4) L 05/20/18 04:00 Hct 26.4 % (35.3-44.9) L 05/20/18 04:00 MCHC 31.4 g/dL (31.6-35.5) L 05/20/18 04:00 RDW 19.1 % (11.5-14.5) H 05/20/18 04:00 Band Neutrophils % 10.0 % (0-4) H 05/14/18 06:57 Nucleated RBCs/100 WBC 0.1 /100 WBC (0) H 05/18/18 03:15 Toxic Granulation Present (Not Present) A 05/16/18 03:00 Toxic Vacuolation Present (Not Present) A 05/15/18 03:15 Platelet Estimate Decreased (Normal) L 05/17/18 03:15 Polychromasia 1+ (Not Present) A 05/14/18 03:26 Hypochromasia Present (Not Present) A 05/17/18 03:15 Poikilocytosis 1+ (Not Present) A 05/16/18 03:00 Anisocytosis 1+ (Not Present) A 05/17/18 03:15 Macrocytosis Present (Not Present) A 05/17/18 03:15 PT 18.8 Seconds (9.4-12.1) H 05/14/18 06:51 APTT 22.5 Seconds (26.0-36.0) L 05/14/18 06:51 ABG pCO2 31 mmHg (35-45) L 05/20/18 10:57 ABG pO2 123 mmHg (85-104) H 05/20/18 10:57 ABG HCO3 19 mEq/L (21-27) L 05/20/18 10:57 ABG O2 Saturation 99 % (95-98) H 05/20/18 10:57 ABG Base Excess -5 mEq/L (-2 to 3) L 05/20/18 10:57 Chloride 119 mEq/L (98-107) H 05/19/18 03:20 Carbon Dioxide 19 mEq/L (23-29) L 05/19/18 03:20 Est GFR ( Amer) 54 (> 60) L 05/19/18 03:20 Est GFR (Non-Af Amer) 44 (> 60) L 05/19/18 03:20 Glucose 106 mg/dL (70-105) H 05/19/18 03:20 Lactic Acid 3.6 mmol/L (0.5-2.2) H 05/14/18 20:40 Calcium 7.3 mg/dL (8.6-10.3) L 05/19/18 03:20 Venous Ioniz Calcium 1.13 mmol/L (1.15-1.35) L 05/19/18 03:46 Direct Bilirubin 0.3 mg/dL (0.0-0.2) H 05/14/18 02:57 AST 43 Units/L (13-39) H 05/14/18 06:57 Troponin I 0.07 ng/mL (< 0.04) H* 05/14/18 06:57 Serum Total Protein 5.6 g/dL (6.4-8.9) L 05/14/18 06:57 Albumin 2.4 g/dL (3.5-5.7) L 05/14/18 06:57 Albumin/Globulin Ratio 0.8 (1.1-2.2) L 05/14/18 06:57 Urine Clarity Cloudy (Clear) A 05/14/18 02:06 Urine Protein 30 mg/dL (Neg-Trace) H 05/14/18 02:06 Urine Bilirubin Small (Negative) H 05/14/18 02:06 Ur Leukocyte Esterase Large (Negative) H 05/14/18 02:06 Urine Microscopic RBC 3-5 per hpf (0-3) H 05/14/18 02:06 Urine Microscopic WBC 15-30 per hpf (0-3) H 05/14/18 02:06 Ur Squamous Epith Cells Moderate per lpf (None-Few) H 05/14/18 02:06 Urine Bacteria Moderate per hpf (None-Few) H 05/14/18 02:06 Ur Culture Indicated? YES (NO) A 05/14/18 02:06 - Clinical Findings Intake & Output: Intake & Output 05/19/18 05/20/18 05/20/18 23:59 07:59 15:59 Intake Total 100 / 100 Output Total 575 / 575 Balance -475 / -475 - Attending Attestation - Attending Attestation I saw and evaluated this patient and my medical decision-making was reviewed with the Resident Physician. I agree with the documented findings, disposition and treatment plan as described except to the extent set forth below. We independently had [id number] contact with the patient Patient seen and examined at bedside Labs, radiology, chart personally reviewed. Management was reviewed during multidisciplinary critical care rounds. PERSONAL LINES ADVISOR: Patient looks little bit agitated but she is following commands most likely due to toxic/metabolic encephalopathy due to underlying sepsis Pulm: Patient has improving V/Q mismatch needs ventilatory support low tidal volume strategy acceptable oxygenation and ventilation secondary to MRSA pneumonia and Klebsiella patient is on appropriate antibiotics. Cards: She is in septic shock on Levo phed with minimal requirement. To liberate from vasopressor not able to do yesterday will try some midodrine and albumin FEN-GI: Diet as per nutrition. will keep her NPO in anticipation of extubation Renal: Acute kidney injury is getting better we will trend creatinine and urine output. ID: To continue broad-spectrum antibiotics sputum growing MRSA and Klebsiella Heme/Onc: Continue DVT prophylaxis Endo: Glucose Monitored Integ/MSK: Skin Care per routine ICU Nursing Protocol to prevent ulcers. Lines: All lines examined without evidence of infection : Dispo: Critically ill updated her daughter about her current clinical status. CODE: Full code
[2018-05-19] MEDS: Norepinephrine 4 MG in D5% in Water 250 ML IVC SCH (12:54)
[2018-05-19] MEDS: Vasopressin 40 UNIT in D5% in Water 100 ML IV SCH (19:53)
[2018-05-19] MEDS: Phenylephrine 10 MG in D5% in Water 250 ML IVC SCH (19:54)
[2018-05-20 04:31] LABS: Basophils % 0.2 %; Eosinophils # 0.3 K/mcL (0.0-0.6); Hematocrit 26.4 % (35.3-44.9); Hemoglobin 8.3 g/dL (11.5-15.4); Immature Granulocytes % 2.5 % (0-4); Immature Platelets 5.3 % (1.1-6.1); Lymphocytes % 18.9 %; Mean Corpuscular HGB Conc 31.4 g/dL (31.6-35.5); Mean Corpuscular Hemoglobin 28.5 pg (28.0-33.3); Mean Corpuscular Volume 90.7 fL (83.0-100.0); Mean Platelet Volume 11.7 fL (9.4-12.4); Monocytes # 0.8 K/mcL (0.0-1.3); Monocytes % 7.7 %; Platelet Count 147 K/mcL (140-400); Red Blood Count 2.91 M/mcL (3.82-4.97); Red Cell Distribution Width 19.1 % (11.5-14.5); Segmented Neutrophils % 67.7 %
[2018-05-20 05:05] LABS: ABG Base Excess -6 mEq/L (-2 to 3); ABG HCO3 18 mEq/L (21-27); ABG Oxygen Saturation 98 % (95-98); ABG PCO2 30 mmHg (35-45); ABG PO2 96 mmHg (85-104); ABG TCO2 19 mEq/L (20-26); Blood Gas Modality ASSIST CONTROL; Blood Gas PEEP 5 cm H2O; Blood Gas Respiration Rate 18; Blood Gas VT 400 cc
[2018-05-20] MEDS: Ipratropium/Albuterol Neb 3 ML IH SCH ×7 (07:48→23:25)
[2018-05-20 11:04] LABS: ABG Base Excess -5 mEq/L (-2 to 3); ABG HCO3 19 mEq/L (21-27); ABG Oxygen Saturation 99 % (95-98); ABG PCO2 31 mmHg (35-45); ABG PH 7.39 pH Units (7.32-7.45); ABG PO2 123 mmHg (85-104); ABG TCO2 20 mEq/L (20-26)
[2018-05-20] MEDS ORDERED: Vancomycin 750 MG VIAL IVPB ONE (11:37)
[2018-05-20] MEDS ORDERED: D5% in Water 250 ML ONE (11:37)
[2018-05-20] MEDS ORDERED: D10% in Water 500 ML IVC PRN (11:37)
[2018-05-20] MEDS: Chlorhexidine Rinse 15 ML MOUTHWASH MM SCH ×2 (12:21→19:17)
[2018-05-20] MEDS: Pantoprazole 40 MG VIAL IVP SCH (12:21)
[2018-05-20] MEDS: *HR* Heparin 5,000 UNIT/ML VIAL SQ SCH ×2 (12:21→17:38)
[2018-05-20] MEDS: Lacri-Lube 3.5 GM TUBE BOTH EYES SCH (12:21)
[2018-05-20] MEDS: Piperacillin/Tazobactam 3.375 GM in 0.9 % Sodium Chloride Mini Bag 100 ML IVPB SCH ×4 (12:21→23:07)
[2018-05-20] MEDS: Levothyroxine Sodium 100 MCG VIAL IVP SCH (12:22)
--- NOTE | 2018-05-20 13:03 | Pulmonology Progress Note ---
<EnricozulemaDimitrios N - Last Filed: 05/20/18 18:13> Date of Encounter: 05/20/18 Time of Encounter: 13:00 Assessment and Plan (1) Acute respiratory failure with hypoxia Current Visit: Yes Status: Acute Secondary to MRSA pneumonia and Klebsiella Patient is on adequate antibiotic therapy She is extubated She is saturating well on 4 L of oxygen, however she remains somnolent and has a poor cough reflex. She will be monitored continuously to assess if she can protect her airway, family would like to re-intubate if necessary. Unable to wean pressors at this time (2) Healthcare-associated pneumonia Current Visit: Yes Status: Acute White blood cell count is stable at 10.4 Sputum cultures grew MRSA and Klebsiella Currently being treated with vancomycin and Zosyn Continue antibiotic therapy (3) Septic shock Current Visit: Yes Status: Acute Continues to require vasopressors for hemodynamic support. She is currently on 1mcg of levophed and midodrine 10mg TID (4) GEORGI (acute kidney injury) Current Visit: No Status: Acute GEORGI most likely secondary to sepsis and dehydration Continue to monitor (5) DVT prophylaxis Current Visit: No Status: Acute Continue heparin Subjective Principal diagnosis: Dehydration, sepsis, pneumonia Interval history: Patient seen and examined at bedside this morning with the attending present. WBC count remains stable at 10.4. Currently on pressors and Midodrin. She tolerated CPAP throughout the day and night yesterday. She was extubated this morning successfully and is tolerating oxygen mask well. She remains minimally responsive and somnolent with a GCS of approximately 9. Later in the day patient started experiencing some labored breathing, BiPAP was started. Family has voiced that they would like reintubation if the patient needs it. Objective PUL Vital signs: Last Vital Signs Temp 99.6 F 05/20/18 12:00 Pulse 72 05/19/18 23:00 Resp 21 05/19/18 23:20 BP 98/43 05/19/18 23:20 Pulse Ox 97 05/19/18 23:20 General appearance: other (Minimally responsive) Auscultation: bilateral: diminished breath sounds Cardiovascular: regular rate and rhythm Gastrointestinal: normoactive bowel sounds Integumentary: normal Results - Laboratory Findings CBC and BMP: 05/20/18 04:00 05/20/18 04:00 ABG ABG pH 7.39 pH Units (7.32-7.45) 05/20/18 10:57 ABG pCO2 31 mmHg (35-45) L 05/20/18 10:57 ABG pO2 123 mmHg (85-104) H 05/20/18 10:57 ABG O2 Saturation 99 % (95-98) H 05/20/18 10:57 PT/INR, D-dimer PT 18.8 Seconds (9.4-12.1) H 05/14/18 06:51 Abnormal lab findings: Abnormal lab results RBC 2.91 M/mcL (3.82-4.97) L 05/20/18 04:00 Hgb 8.3 g/dL (11.5-15.4) L 05/20/18 04:00 Hct 26.4 % (35.3-44.9) L 05/20/18 04:00 MCHC 31.4 g/dL (31.6-35.5) L 05/20/18 04:00 RDW 19.1 % (11.5-14.5) H 05/20/18 04:00 Band Neutrophils % 10.0 % (0-4) H 05/14/18 06:57 Nucleated RBCs/100 WBC 0.1 /100 WBC (0) H 05/18/18 03:15 Toxic Granulation Present (Not Present) A 05/16/18 03:00 Toxic Vacuolation Present (Not Present) A 05/15/18 03:15 Platelet Estimate Decreased (Normal) L 05/17/18 03:15 Polychromasia 1+ (Not Present) A 05/14/18 03:26 Hypochromasia Present (Not Present) A 05/17/18 03:15 Poikilocytosis 1+ (Not Present) A 05/16/18 03:00 Anisocytosis 1+ (Not Present) A 05/17/18 03:15 Macrocytosis Present (Not Present) A 05/17/18 03:15 PT 18.8 Seconds (9.4-12.1) H 05/14/18 06:51 APTT 22.5 Seconds (26.0-36.0) L 05/14/18 06:51 ABG pCO2 31 mmHg (35-45) L 05/20/18 10:57 ABG pO2 123 mmHg (85-104) H 05/20/18 10:57 ABG HCO3 19 mEq/L (21-27) L 05/20/18 10:57 ABG O2 Saturation 99 % (95-98) H 05/20/18 10:57 ABG Base Excess -5 mEq/L (-2 to 3) L 05/20/18 10:57 Chloride 119 mEq/L (98-107) H 05/19/18 03:20 Carbon Dioxide 19 mEq/L (23-29) L 05/19/18 03:20 Est GFR ( Amer) 54 (> 60) L 05/19/18 03:20 Est GFR (Non-Af Amer) 44 (> 60) L 05/19/18 03:20 Glucose 106 mg/dL (70-105) H 05/19/18 03:20 Lactic Acid 3.6 mmol/L (0.5-2.2) H 05/14/18 20:40 Calcium 7.3 mg/dL (8.6-10.3) L 05/19/18 03:20 Venous Ioniz Calcium 1.13 mmol/L (1.15-1.35) L 05/19/18 03:46 Direct Bilirubin 0.3 mg/dL (0.0-0.2) H 05/14/18 02:57 AST 43 Units/L (13-39) H 05/14/18 06:57 Troponin I 0.07 ng/mL (< 0.04) H* 05/14/18 06:57 Serum Total Protein 5.6 g/dL (6.4-8.9) L 05/14/18 06:57 Albumin 2.4 g/dL (3.5-5.7) L 05/14/18 06:57 Albumin/Globulin Ratio 0.8 (1.1-2.2) L 05/14/18 06:57 Urine Clarity Cloudy (Clear) A 05/14/18 02:06 Urine Protein 30 mg/dL (Neg-Trace) H 05/14/18 02:06 Urine Bilirubin Small (Negative) H 05/14/18 02:06 Ur Leukocyte Esterase Large (Negative) H 05/14/18 02:06 Urine Microscopic RBC 3-5 per hpf (0-3) H 05/14/18 02:06 Urine Microscopic WBC 15-30 per hpf (0-3) H 05/14/18 02:06 Ur Squamous Epith Cells Moderate per lpf (None-Few) H 05/14/18 02:06 Urine Bacteria Moderate per hpf (None-Few) H 05/14/18 02:06 Ur Culture Indicated? YES (NO) A 05/14/18 02:06 - Clinical Findings Intake & Output: Intake & Output 05/19/18 05/20/18 05/20/18 23:59 07:59 15:59 Intake Total 100 / 100 Output Total 575 / 575 425 / 425 Balance -475 / -475 -425 / -425 Consult Discharge Plan - Plan Referrals: Albertina Huerta MD [Primary Care Provider] - <Jovita Ledezma - Last Filed: 05/20/18 23:58> Date of Encounter: 05/20/18 Assessment and Plan (1) Acute respiratory failure with hypoxia Current Visit: Yes Status: Acute (2) Healthcare-associated pneumonia Current Visit: Yes Status: Acute (3) Septic shock Current Visit: Yes Status: Acute (4) GEORGI (acute kidney injury) Current Visit: No Status: Acute (5) DVT prophylaxis Current Visit: Yes Status: Acute Objective PUL Vital signs: Last Vital Signs Temp 98.7 F 05/20/18 23:06 Pulse 83 05/20/18 23:06 Resp 22 05/20/18 23:25 BP 103/45 05/20/18 23:25 Pulse Ox 100 05/20/18 23:25 Results - Laboratory Findings CBC and BMP: 05/20/18 04:00 05/20/18 04:00 ABG ABG pH 7.39 pH Units (7.32-7.45) 05/20/18 10:57 ABG pCO2 31 mmHg (35-45) L 05/20/18 10:57 ABG pO2 123 mmHg (85-104) H 05/20/18 10:57 ABG O2 Saturation 99 % (95-98) H 05/20/18 10:57 PT/INR, D-dimer PT 18.8 Seconds (9.4-12.1) H 05/14/18 06:51 Abnormal lab findings: Abnormal lab results RBC 2.91 M/mcL (3.82-4.97) L 05/20/18 04:00 Hgb 8.3 g/dL (11.5-15.4) L 05/20/18 04:00 Hct 26.4 % (35.3-44.9) L 05/20/18 04:00 MCHC 31.4 g/dL (31.6-35.5) L 05/20/18 04:00 RDW 19.1 % (11.5-14.5) H 05/20/18 04:00 Band Neutrophils % 10.0 % (0-4) H 05/14/18 06:57 Nucleated RBCs/100 WBC 0.1 /100 WBC (0) H 05/18/18 03:15 Toxic Granulation Present (Not Present) A 05/16/18 03:00 Toxic Vacuolation Present (Not Present) A 05/15/18 03:15 Platelet Estimate Decreased (Normal) L 05/17/18 03:15 Polychromasia 1+ (Not Present) A 05/14/18 03:26 Hypochromasia Present (Not Present) A 05/17/18 03:15 Poikilocytosis 1+ (Not Present) A 05/16/18 03:00 Anisocytosis 1+ (Not Present) A 05/17/18 03:15 Macrocytosis Present (Not Present) A 05/17/18 03:15 PT 18.8 Seconds (9.4-12.1) H 05/14/18 06:51 APTT 22.5 Seconds (26.0-36.0) L 05/14/18 06:51 ABG pCO2 31 mmHg (35-45) L 05/20/18 10:57 ABG pO2 123 mmHg (85-104) H 05/20/18 10:57 ABG HCO3 19 mEq/L (21-27) L 05/20/18 10:57 ABG O2 Saturation 99 % (95-98) H 05/20/18 10:57 ABG Base Excess -5 mEq/L (-2 to 3) L 05/20/18 10:57 Chloride 117 mEq/L (98-107) H 05/20/18 04:00 Carbon Dioxide 17 mEq/L (23-29) L 05/20/18 04:00 Est GFR ( Amer) 56 (> 60) L 05/20/18 04:00 Est GFR (Non-Af Amer) 46 (> 60) L 05/20/18 04:00 Lactic Acid 3.6 mmol/L (0.5-2.2) H 05/14/18 20:40 Calcium 7.4 mg/dL (8.6-10.3) L 05/20/18 04:00 Venous Ioniz Calcium 1.13 mmol/L (1.15-1.35) L 05/19/18 03:46 Direct Bilirubin 0.3 mg/dL (0.0-0.2) H 05/14/18 02:57 AST 43 Units/L (13-39) H 05/14/18 06:57 Troponin I 0.07 ng/mL (< 0.04) H* 05/14/18 06:57 Serum Total Protein 5.6 g/dL (6.4-8.9) L 05/14/18 06:57 Albumin 2.4 g/dL (3.5-5.7) L 05/14/18 06:57 Albumin/Globulin Ratio 0.8 (1.1-2.2) L 05/14/18 06:57 Urine Clarity Cloudy (Clear) A 05/14/18 02:06 Urine Protein 30 mg/dL (Neg-Trace) H 05/14/18 02:06 Urine Bilirubin Small (Negative) H 05/14/18 02:06 Ur Leukocyte Esterase Large (Negative) H 05/14/18 02:06 Urine Microscopic RBC 3-5 per hpf (0-3) H 05/14/18 02:06 Urine Microscopic WBC 15-30 per hpf (0-3) H 05/14/18 02:06 Ur Squamous Epith Cells Moderate per lpf (None-Few) H 05/14/18 02:06 Urine Bacteria Moderate per hpf (None-Few) H 05/14/18 02:06 Ur Culture Indicated? YES (NO) A 05/14/18 02:06 - Clinical Findings Intake & Output: Intake & Output 05/20/18 05/20/18 05/20/18 07:59 15:59 23:59 Intake Total 204 / 204 100 / 100 Output Total 425 / 425 630 / 630 Balance -221 / -221 -530 / -530 - Attending Attestation I spent 32 MINUTES of Critical Care time with this patient. It involved decision making of high complexity to assess, manipulate, and support vital organ system failure and/or to prevent further life threatening deterioration of the patient's condition. The time involved in the performance of separately reportable procedures was not counted toward critical care time. Attending Attestation I saw and evaluated this patient and my medical decision-making was reviewed with the Resident Physician. I agree with the documented findings, disposition and treatment plan as described except to the extent set forth below. We independently had [id number] contact with the patient Patient seen and examined at bedside Labs, radiology, chart personally reviewed. Management was reviewed during multidisciplinary critical care rounds. BALLPOINT PEN CARTRIDGE TESTER: Patient looks little bit agitated but she is following commands most likely due to toxic/metabolic encephalopathy due to underlying sepsis 05/20 Patient is off sedation on donepzil and seroquel patient calm drowsy on and off follow commands . Pulm: Patient has improving V/Q mismatch needs ventilatory support low tidal volume strategy acceptable oxygenation and ventilation secondary to MRSA pneumonia and Klebsiella patient is on appropriate antibiotics. 05/20 Patient has acceptable oxygenation and ventilation patient passed SBT extubated her she is drowsy will stop seroquel patient has decent cough if her work of breathing increases start her on BIPAP . Cards: She is in septic shock on Levo phed with minimal requirement. To liberate from vasopressor not able to do yesterday will try some midodrine and albumin 05/20 To liberate from vasopressor today FEN-GI: Diet as per nutrition. will keep her NPO in anticipation of extubation Renal: Acute kidney injury is getting better we will trend creatinine and urine output. ID: To continue broad-spectrum antibiotics sputum growing MRSA and Klebsiella Heme/Onc: Continue DVT prophylaxis Endo: Glucose Monitored Integ/MSK: Skin Care per routine ICU Nursing Protocol to prevent ulcers. Lines: All lines examined without evidence of infection : Dispo: Critically ill updated her daughter about her current clinical status. CODE: Full code
[2018-05-20 14:21] LABS: Calcium 7.4 mg/dL (8.6-10.3); Potassium 4.2 mEq/L (3.5-5.1)
[2018-05-20] MEDS: Vasopressin 40 UNIT in D5% in Water 100 ML IV SCH (15:30)
[2018-05-20] MEDS ORDERED: Clinimix E 5%-15% SOLUTION 2,000 ML with MVI, adult with vitamin K 10 ML IVC SCH (17:00)
[2018-05-20] MEDS: Norepinephrine 4 MG in D5% in Water 250 ML IVC SCH (19:17)
[2018-05-20] MEDS: Phenylephrine 10 MG in D5% in Water 250 ML IVC SCH (19:17)
[2018-05-21 03:12] LABS: Basophils % 0.2 %; Eosinophils # 0.4 K/mcL (0.0-0.6); Eosinophils % 3.9 %; Hematocrit 25.4 % (35.3-44.9); Hemoglobin 7.9 g/dL (11.5-15.4); Immature Granulocytes % 2.1 % (0-4); Lymphocytes # 1.4 K/mcL (0.6-4.6); Lymphocytes % 14.4 %; Mean Corpuscular HGB Conc 31.1 g/dL (31.6-35.5); Mean Corpuscular Hemoglobin 28.3 pg (28.0-33.3); Mean Platelet Volume 11.1 fL (9.4-12.4); Monocytes # 0.5 K/mcL (0.0-1.3); Monocytes % 5.4 %; Neutrophils # 7.1 K/mcL (1.6-8.9); Platelet Count 171 K/mcL (140-400); Red Blood Count 2.79 M/mcL (3.82-4.97); Red Cell Distribution Width 18.6 % (11.5-14.5)
[2018-05-21 03:31] LABS: Calcium 7.8 mg/dL (8.6-10.3); Magnesium 1.6 mg/dL (1.6-2.6); Phosphorous 2.7 mg/dL (2.7-4.5); Potassium 3.8 mEq/L (3.5-5.1)
[2018-05-21] MEDS: Ipratropium/Albuterol Neb 3 ML IH SCH ×6 (03:54→23:19)
[2018-05-21] MEDS: Potassium Phosphate 44 MEQ in 0.9 % Sodium Chloride 250 ML IVPB PRN (04:04)
[2018-05-21] MEDS: *HR* Heparin 5,000 UNIT/ML VIAL SQ SCH ×2 (05:04→17:47)
[2018-05-21] MEDS: Piperacillin/Tazobactam 3.375 GM in 0.9 % Sodium Chloride Mini Bag 100 ML IVPB SCH ×3 (08:58→23:09)
[2018-05-21] MEDS: Chlorhexidine Rinse 15 ML MOUTHWASH MM SCH ×2 (08:58→19:03)
[2018-05-21] MEDS: Pantoprazole 40 MG VIAL IVP SCH (08:58)
[2018-05-21] MEDS: Levothyroxine Sodium 100 MCG VIAL IVP SCH ×2 (08:59→11:26)
[2018-05-21] MEDS: Dexmedetomidine HCl 400 MCG/100 ML MLS IVC SCH ×2 (08:59→19:33)
[2018-05-21] MEDS: Vasopressin 40 UNIT in D5% in Water 100 ML IV SCH (11:26)
--- NOTE | 2018-05-21 12:32 | Pulmonology Progress Note ---
<Dimitrios Fleming N - Last Filed: 05/21/18 15:22> Date of Encounter: 05/21/18 Time of Encounter: 12:29 Assessment and Plan (1) Acute respiratory failure with hypoxia Current Visit: Yes Status: Acute Secondary to MRSA pneumonia and Klebsiella Patient is on adequate antibiotic therapy She is extubated She will be monitored continuously to assess if she can protect her airway, family would like to re-intubate if necessary. Patient is currently awake, she appears to understand and follow commands. But she has not returned to her baseline mental status per family. The patient appears to try to speak however she cannot form words, CT head was performed on the was negative for any bleeds or prior strokes. Currently off pressors. (2) Healthcare-associated pneumonia Current Visit: Yes Status: Acute White blood cell count is stable Sputum cultures grew MRSA and Klebsiella Currently being treated with vancomycin and Zosyn Continue antibiotic therapy (3) Septic shock Current Visit: Yes Status: Acute Not on pressors at this time, continue to monitor (4) GEORGI (acute kidney injury) Current Visit: No Status: Acute GEORGI most likely secondary to sepsis and dehydration Continue to monitor (5) DVT prophylaxis Current Visit: No Status: Acute Continue heparin Subjective Principal diagnosis: Dehydration, sepsis, pneumonia Interval history: Patient seen and examined at bedside this morning with the attending present. She was extubated yesterday, last evening the patient started developing some increased work for breathing and had rhonchorous breath sounds. The nurse was able to suction out plenty of mucus. Patient was started on BiPAP and she tolerated the BiPAP well overnight. She is currently on submental oxygen and saturating well. This Morning the patient is alert, it is unknown if she is oriented. She follows commands and tries to talk, but she cannot form words. It appears as though she is complaining of pain all point the right upper quadrant region or abdomen. Objective PUL Vital signs: Last Vital Signs Temp 98.8 F 05/21/18 12:16 Pulse 108 05/21/18 12:00 Resp 19 05/21/18 12:00 BP 85/47 05/21/18 12:00 Pulse Ox 97 05/21/18 12:00 General appearance: other (She appears uncomfortable and complaining of some pain pointing to her right upper quadrant region.) Auscultation: bilateral: diminished breath sounds Cardiovascular: regular rate and rhythm Gastrointestinal: other (Positive bowel sounds, colostomy in place. Generally soft with some mild guarding when palpating epigastric and right upper quadrant region.) Extremities: no cyanosis, edema Results - Laboratory Findings CBC and BMP: 05/21/18 03:00 05/21/18 03:00 ABG ABG pH 7.39 pH Units (7.32-7.45) 05/20/18 10:57 ABG pCO2 31 mmHg (35-45) L 05/20/18 10:57 ABG pO2 123 mmHg (85-104) H 05/20/18 10:57 ABG O2 Saturation 99 % (95-98) H 05/20/18 10:57 PT/INR, D-dimer PT 18.8 Seconds (9.4-12.1) H 05/14/18 06:51 Abnormal lab findings: Abnormal lab results RBC 2.79 M/mcL (3.82-4.97) L 05/21/18 03:00 Hgb 7.9 g/dL (11.5-15.4) L 05/21/18 03:00 Hct 25.4 % (35.3-44.9) L 05/21/18 03:00 MCHC 31.1 g/dL (31.6-35.5) L 05/21/18 03:00 RDW 18.6 % (11.5-14.5) H 05/21/18 03:00 Band Neutrophils % 10.0 % (0-4) H 05/14/18 06:57 Nucleated RBCs/100 WBC 0.1 /100 WBC (0) H 05/18/18 03:15 Toxic Granulation Present (Not Present) A 05/16/18 03:00 Toxic Vacuolation Present (Not Present) A 05/15/18 03:15 Platelet Estimate Decreased (Normal) L 05/17/18 03:15 Polychromasia 1+ (Not Present) A 05/14/18 03:26 Hypochromasia Present (Not Present) A 05/17/18 03:15 Poikilocytosis 1+ (Not Present) A 05/16/18 03:00 Anisocytosis 1+ (Not Present) A 05/17/18 03:15 Macrocytosis Present (Not Present) A 05/17/18 03:15 PT 18.8 Seconds (9.4-12.1) H 05/14/18 06:51 APTT 22.5 Seconds (26.0-36.0) L 05/14/18 06:51 ABG pCO2 31 mmHg (35-45) L 05/20/18 10:57 ABG pO2 123 mmHg (85-104) H 05/20/18 10:57 ABG HCO3 19 mEq/L (21-27) L 05/20/18 10:57 ABG O2 Saturation 99 % (95-98) H 05/20/18 10:57 ABG Base Excess -5 mEq/L (-2 to 3) L 05/20/18 10:57 Chloride 117 mEq/L (98-107) H 05/21/18 03:00 Carbon Dioxide 21 mEq/L (23-29) L 05/21/18 03:00 Est GFR ( Amer) 59 (> 60) L 05/21/18 03:00 Est GFR (Non-Af Amer) 48 (> 60) L 05/21/18 03:00 Glucose 133 mg/dL (70-105) H 05/21/18 03:00 POC Glucose 134 mg/dL (70-99) H 05/21/18 11:34 Lactic Acid 3.6 mmol/L (0.5-2.2) H 05/14/18 20:40 Calcium 7.8 mg/dL (8.6-10.3) L 05/21/18 03:00 Venous Ioniz Calcium 1.13 mmol/L (1.15-1.35) L 05/19/18 03:46 Direct Bilirubin 0.3 mg/dL (0.0-0.2) H 05/14/18 02:57 AST 43 Units/L (13-39) H 05/14/18 06:57 Troponin I 0.07 ng/mL (< 0.04) H* 05/14/18 06:57 Serum Total Protein 5.6 g/dL (6.4-8.9) L 05/14/18 06:57 Albumin 2.4 g/dL (3.5-5.7) L 05/14/18 06:57 Albumin/Globulin Ratio 0.8 (1.1-2.2) L 05/14/18 06:57 Urine Clarity Cloudy (Clear) A 05/14/18 02:06 Urine Protein 30 mg/dL (Neg-Trace) H 05/14/18 02:06 Urine Bilirubin Small (Negative) H 05/14/18 02:06 Ur Leukocyte Esterase Large (Negative) H 05/14/18 02:06 Urine Microscopic RBC 3-5 per hpf (0-3) H 05/14/18 02:06 Urine Microscopic WBC 15-30 per hpf (0-3) H 05/14/18 02:06 Ur Squamous Epith Cells Moderate per lpf (None-Few) H 05/14/18 02:06 Urine Bacteria Moderate per hpf (None-Few) H 05/14/18 02:06 Ur Culture Indicated? YES (NO) A 05/14/18 02:06 - Clinical Findings Intake & Output: Intake & Output 05/20/18 05/21/18 05/21/18 23:59 07:59 15:59 Intake Total 100 / 100 454 / 454 Output Total 630 / 630 150 / 150 300 / 300 Balance -530 / -530 304 / 304 -300 / -300 Consult Discharge Plan - Plan Referrals: Albertina Huerta MD [Primary Care Provider] - <Jovita Ledezma S - Last Filed: 05/22/18 00:16> Date of Encounter: 05/22/18 Assessment and Plan (1) Acute respiratory failure with hypoxia Current Visit: Yes Status: Acute (2) Healthcare-associated pneumonia Current Visit: Yes Status: Acute (3) Septic shock Current Visit: Yes Status: Acute (4) GEORGI (acute kidney injury) Current Visit: No Status: Acute (5) DVT prophylaxis Current Visit: Yes Status: Acute Objective PUL Vital signs: Last Vital Signs Temp 99.2 F 05/21/18 23:00 Pulse 92 05/22/18 00:00 Resp 23 05/22/18 00:00 BP 112/86 05/22/18 00:00 Pulse Ox 97 05/22/18 00:00 Results - Laboratory Findings CBC and BMP: 05/21/18 03:00 05/21/18 16:12 ABG ABG pH 7.39 pH Units (7.32-7.45) 05/20/18 10:57 ABG pCO2 31 mmHg (35-45) L 05/20/18 10:57 ABG pO2 123 mmHg (85-104) H 05/20/18 10:57 ABG O2 Saturation 99 % (95-98) H 05/20/18 10:57 PT/INR, D-dimer PT 18.8 Seconds (9.4-12.1) H 05/14/18 06:51 Abnormal lab findings: Abnormal lab results RBC 2.79 M/mcL (3.82-4.97) L 05/21/18 03:00 Hgb 7.9 g/dL (11.5-15.4) L 05/21/18 03:00 Hct 25.4 % (35.3-44.9) L 05/21/18 03:00 MCHC 31.1 g/dL (31.6-35.5) L 05/21/18 03:00 RDW 18.6 % (11.5-14.5) H 05/21/18 03:00 Band Neutrophils % 10.0 % (0-4) H 05/14/18 06:57 Nucleated RBCs/100 WBC 0.1 /100 WBC (0) H 05/18/18 03:15 Toxic Granulation Present (Not Present) A 05/16/18 03:00 Toxic Vacuolation Present (Not Present) A 05/15/18 03:15 Platelet Estimate Decreased (Normal) L 05/17/18 03:15 Polychromasia 1+ (Not Present) A 05/14/18 03:26 Hypochromasia Present (Not Present) A 05/17/18 03:15 Poikilocytosis 1+ (Not Present) A 05/16/18 03:00 Anisocytosis 1+ (Not Present) A 05/17/18 03:15 Macrocytosis Present (Not Present) A 05/17/18 03:15 PT 18.8 Seconds (9.4-12.1) H 05/14/18 06:51 APTT 22.5 Seconds (26.0-36.0) L 05/14/18 06:51 ABG pCO2 31 mmHg (35-45) L 05/20/18 10:57 ABG pO2 123 mmHg (85-104) H 05/20/18 10:57 ABG HCO3 19 mEq/L (21-27) L 05/20/18 10:57 ABG O2 Saturation 99 % (95-98) H 05/20/18 10:57 ABG Base Excess -5 mEq/L (-2 to 3) L 05/20/18 10:57 Chloride 117 mEq/L (98-107) H 05/21/18 03:00 Carbon Dioxide 21 mEq/L (23-29) L 05/21/18 03:00 Est GFR ( Amer) 59 (> 60) L 05/21/18 03:00 Est GFR (Non-Af Amer) 48 (> 60) L 05/21/18 03:00 Glucose 133 mg/dL (70-105) H 05/21/18 03:00 POC Glucose 117 mg/dL (70-99) H 05/21/18 18:35 Lactic Acid 3.6 mmol/L (0.5-2.2) H 05/14/18 20:40 Calcium 7.8 mg/dL (8.6-10.3) L 05/21/18 03:00 Venous Ioniz Calcium 1.13 mmol/L (1.15-1.35) L 05/19/18 03:46 Direct Bilirubin 0.3 mg/dL (0.0-0.2) H 05/14/18 02:57 AST 43 Units/L (13-39) H 05/14/18 06:57 Troponin I 0.07 ng/mL (< 0.04) H* 05/14/18 06:57 Serum Total Protein 5.6 g/dL (6.4-8.9) L 05/14/18 06:57 Albumin 2.4 g/dL (3.5-5.7) L 05/14/18 06:57 Albumin/Globulin Ratio 0.8 (1.1-2.2) L 05/14/18 06:57 Urine Clarity Cloudy (Clear) A 05/14/18 02:06 Urine Protein 30 mg/dL (Neg-Trace) H 05/14/18 02:06 Urine Bilirubin Small (Negative) H 05/14/18 02:06 Ur Leukocyte Esterase Large (Negative) H 05/14/18 02:06 Urine Microscopic RBC 3-5 per hpf (0-3) H 05/14/18 02:06 Urine Microscopic WBC 15-30 per hpf (0-3) H 05/14/18 02:06 Ur Squamous Epith Cells Moderate per lpf (None-Few) H 05/14/18 02:06 Urine Bacteria Moderate per hpf (None-Few) H 05/14/18 02:06 Ur Culture Indicated? YES (NO) A 05/14/18 02:06 - Clinical Findings Intake & Output: Intake & Output 05/21/18 05/21/18 05/22/18 15:59 23:59 07:59 Intake Total 610 / 610 1289 / 1289 Output Total 300 / 300 820 / 820 Balance 310 / 310 469 / 469 Weight 81 kg - Attending Attestation Attending Attestation I saw and evaluated this patient and my medical decision-making was reviewed with the Resident Physician. I agree with the documented findings, disposition and treatment plan as described except to the extent set forth below. We independently had [id number] contact with the patient Patient seen and examined at bedside Labs, radiology, chart personally reviewed. Management was reviewed during multidisciplinary critical care rounds. FISHER TROT LINE: Patient looks little bit agitated but she is following commands most likely due to toxic/metabolic encephalopathy due to underlying sepsis 05/20 Patient is off sedation on donepzil and seroquel patient calm drowsy on and off follow commands . 05/21 Patient is more relaxed is following simple commands . Pulm: Patient has improving V/Q mismatch needs ventilatory support low tidal volume strategy acceptable oxygenation and ventilation secondary to MRSA pneumonia and Klebsiella patient is on appropriate antibiotics. 05/20 Patient has acceptable oxygenation and ventilation patient passed SBT extubated her she is drowsy will stop seroquel patient has decent cough if her work of breathing increases start her on BIPAP . 05/21 Patient is on NC acceptable oxygenation and stable to continue BIPAP overnight Cards: She is in septic shock on Levo phed with minimal requirement. To liberate from vasopressor not able to do yesterday will try some midodrine and albumin 05/20 To liberate from vasopressor today 05/21 Patient is off Vasopressor to continue diuresis as tolerated FEN-GI: Diet as per nutrition. advance diet as tolerated Renal: Acute kidney injury is getting better we will trend creatinine and urine output. ID: To continue broad-spectrum antibiotics sputum growing MRSA and Klebsiella Heme/Onc: Continue DVT prophylaxis Endo: Glucose Monitored Integ/MSK: Skin Care per routine ICU Nursing Protocol to prevent ulcers. Lines: All lines examined without evidence of infection : Dispo: will monitor in ICU 1 more day CODE: Full code
[2018-05-21 16:44] LABS: Magnesium 1.8 mg/dL (1.6-2.6); Phosphorous 3.5 mg/dL (2.7-4.5); Potassium 3.9 mEq/L (3.5-5.1)
[2018-05-21] MEDS ORDERED: Clinimix E 5%-15% SOLUTION 2,000 ML with MVI, adult with vitamin K 10 ML IVC SCH (17:00)
[2018-05-21] MEDS: Norepinephrine 4 MG in D5% in Water 250 ML IVC SCH (19:02)
[2018-05-21] MEDS: Phenylephrine 10 MG in D5% in Water 250 ML IVC SCH (19:03)
[2018-05-22] MEDS: Dexmedetomidine HCl 400 MCG/100 ML MLS IVC SCH ×3 (01:38→23:01)
[2018-05-22 03:09] LABS: Basophils % 0.2 %; Eosinophils # 0.3 K/mcL (0.0-0.6); Hematocrit 23.1 % (35.3-44.9); Hemoglobin 7.2 g/dL (11.5-15.4); Immature Granulocytes % 2.5 % (0-4); Lymphocytes # 1.6 K/mcL (0.6-4.6); Lymphocytes % 14.9 %; Mean Corpuscular HGB Conc 31.2 g/dL (31.6-35.5); Mean Corpuscular Volume 89.9 fL (83.0-100.0); Mean Platelet Volume 10.9 fL (9.4-12.4); Monocytes # 0.5 K/mcL (0.0-1.3); Monocytes % 4.3 %; Neutrophils # 8.2 K/mcL (1.6-8.9); Platelet Count 212 K/mcL (140-400); Red Blood Count 2.57 M/mcL (3.82-4.97); Red Cell Distribution Width 18.4 % (11.5-14.5); Segmented Neutrophils % 75.1 %
[2018-05-22] MEDS: Ipratropium/Albuterol Neb 3 ML IH SCH ×6 (03:29→23:55)
[2018-05-22 03:34] LABS: BUN/Creatinine Ratio 19 (6-26); Blood Urea Nitrogen 18 mg/dL (8-23); Calcium 7.5 mg/dL (8.6-10.3); Carbon Dioxide 21 mEq/L (23-29); Chloride 119 mEq/L (98-107); Glucose 157 mg/dL (70-105); Magnesium 1.7 mg/dL (1.6-2.6); Osmolality,Calculated 305 (280-300); Phosphorous 3.1 mg/dL (2.7-4.5); Potassium 3.9 mEq/L (3.5-5.1); Sodium 145 mEq/L (136-145); eGFR For Non-African Americans 55 (> 60)
[2018-05-22] MEDS: Potassium Chloride 40 MEQ/200 ML BAG IVPB PRN (03:49)
[2018-05-22] MEDS: *HR* Heparin 5,000 UNIT/ML VIAL SQ SCH ×2 (05:11→18:02)
[2018-05-22] MEDS: Pantoprazole 40 MG VIAL IVP SCH (07:50)
[2018-05-22] MEDS: Piperacillin/Tazobactam 3.375 GM in 0.9 % Sodium Chloride Mini Bag 100 ML IVPB SCH ×3 (07:50→23:02)
[2018-05-22] MEDS: Levothyroxine Sodium 100 MCG VIAL IVP SCH (07:50)
[2018-05-22] MEDS: Chlorhexidine Rinse 15 ML MOUTHWASH MM SCH ×2 (07:50→19:16)
--- NOTE | 2018-05-22 12:03 | Pulmonology Progress Note ---
<Dimitrios Fleming N - Last Filed: 05/22/18 12:00> Date of Encounter: 05/22/18 Time of Encounter: 12:00 Assessment and Plan (1) Acute respiratory failure with hypoxia Current Visit: Yes Status: Acute Secondary to MRSA pneumonia and Klebsiella Patient is on adequate antibiotic therapy She is extubated and tolerating nasal cannula well She will be monitored continuously to assess if she can protect her airway, family would like to re-intubate if necessary. Patient is currently awake, but she has not returned to her baseline mental status per family. The patient appears to try to speak however she cannot form words, CT head was performed on the was negative for any bleeds or prior strokes. Currently off pressors. (2) Healthcare-associated pneumonia Current Visit: Yes Status: Acute White blood cell count is stable Sputum cultures grew MRSA and Klebsiella Currently being treated with vancomycin and Zosyn Continue antibiotic therapy (3) Septic shock Current Visit: Yes Status: Acute Not on pressors at this time, continue to monitor (4) GEORGI (acute kidney injury) Current Visit: No Status: Resolved GEORGI most likely secondary to sepsis and dehydration resolved Continue to monitor (5) DVT prophylaxis Current Visit: No Status: Acute Continue heparin Subjective Principal diagnosis: Dehydration, sepsis, pneumonia Interval history: Patient seen and examined at bedside this morning with the attending present. She tolerated BiPAP well overnight. She is currently on nasal cannula. Patient does wake up, but does not respond very well. She answers yes and no questions. She appears highly agitated and is somewhat tearful as well. She is unable to vocalize or engage in any sort of conversation at this time. Will obtain a speech therapy consult for swallow evaluation in order to restart some of patient's home psychiatry medications. Objective PUL Vital signs: Last Vital Signs Temp 98.7 F 05/22/18 07:00 Pulse 106 05/22/18 10:00 Resp 22 05/22/18 10:00 BP 118/90 05/22/18 10:00 Pulse Ox 100 05/22/18 10:00 General appearance: agitated, appears uncomfortable Auscultation: bilateral: wheezes Cardiovascular: regular rate and rhythm Gastrointestinal: normoactive bowel sounds, soft, other (Colostomy in place) Integumentary: normal Extremities: edema anxious, tearful Results - Laboratory Findings CBC and BMP: 05/22/18 02:56 05/22/18 02:56 ABG ABG pH 7.39 pH Units (7.32-7.45) 05/20/18 10:57 ABG pCO2 31 mmHg (35-45) L 05/20/18 10:57 ABG pO2 123 mmHg (85-104) H 05/20/18 10:57 ABG O2 Saturation 99 % (95-98) H 05/20/18 10:57 PT/INR, D-dimer PT 18.8 Seconds (9.4-12.1) H 05/14/18 06:51 Abnormal lab findings: Abnormal lab results RBC 2.57 M/mcL (3.82-4.97) L 05/22/18 02:56 Hgb 7.2 g/dL (11.5-15.4) L 05/22/18 02:56 Hct 23.1 % (35.3-44.9) L 05/22/18 02:56 MCHC 31.2 g/dL (31.6-35.5) L 05/22/18 02:56 RDW 18.4 % (11.5-14.5) H 05/22/18 02:56 Band Neutrophils % 10.0 % (0-4) H 05/14/18 06:57 Nucleated RBCs/100 WBC 0.1 /100 WBC (0) H 05/18/18 03:15 Toxic Granulation Present (Not Present) A 05/16/18 03:00 Toxic Vacuolation Present (Not Present) A 05/15/18 03:15 Platelet Estimate Decreased (Normal) L 05/17/18 03:15 Polychromasia 1+ (Not Present) A 05/14/18 03:26 Hypochromasia Present (Not Present) A 05/17/18 03:15 Poikilocytosis 1+ (Not Present) A 05/16/18 03:00 Anisocytosis 1+ (Not Present) A 05/17/18 03:15 Macrocytosis Present (Not Present) A 05/17/18 03:15 PT 18.8 Seconds (9.4-12.1) H 05/14/18 06:51 APTT 22.5 Seconds (26.0-36.0) L 05/14/18 06:51 ABG pCO2 31 mmHg (35-45) L 05/20/18 10:57 ABG pO2 123 mmHg (85-104) H 05/20/18 10:57 ABG HCO3 19 mEq/L (21-27) L 05/20/18 10:57 ABG O2 Saturation 99 % (95-98) H 05/20/18 10:57 ABG Base Excess -5 mEq/L (-2 to 3) L 05/20/18 10:57 Chloride 119 mEq/L (98-107) H 05/22/18 02:56 Carbon Dioxide 21 mEq/L (23-29) L 05/22/18 02:56 Est GFR (Non-Af Amer) 55 (> 60) L 05/22/18 02:56 Glucose 157 mg/dL (70-105) H 05/22/18 02:56 POC Glucose 108 mg/dL (70-99) H 05/22/18 11:45 Calculated Osmolality 305 (280-300) H 05/22/18 02:56 Lactic Acid 3.6 mmol/L (0.5-2.2) H 05/14/18 20:40 Calcium 7.5 mg/dL (8.6-10.3) L 05/22/18 02:56 Venous Ioniz Calcium 1.13 mmol/L (1.15-1.35) L 05/19/18 03:46 Direct Bilirubin 0.3 mg/dL (0.0-0.2) H 05/14/18 02:57 AST 43 Units/L (13-39) H 05/14/18 06:57 Troponin I 0.07 ng/mL (< 0.04) H* 05/14/18 06:57 Serum Total Protein 5.6 g/dL (6.4-8.9) L 05/14/18 06:57 Albumin 2.4 g/dL (3.5-5.7) L 05/14/18 06:57 Albumin/Globulin Ratio 0.8 (1.1-2.2) L 05/14/18 06:57 Urine Clarity Cloudy (Clear) A 05/14/18 02:06 Urine Protein 30 mg/dL (Neg-Trace) H 05/14/18 02:06 Urine Bilirubin Small (Negative) H 05/14/18 02:06 Ur Leukocyte Esterase Large (Negative) H 05/14/18 02:06 Urine Microscopic RBC 3-5 per hpf (0-3) H 05/14/18 02:06 Urine Microscopic WBC 15-30 per hpf (0-3) H 05/14/18 02:06 Ur Squamous Epith Cells Moderate per lpf (None-Few) H 05/14/18 02:06 Urine Bacteria Moderate per hpf (None-Few) H 05/14/18 02:06 Ur Culture Indicated? YES (NO) A 05/14/18 02:06 - Clinical Findings Intake & Output: Intake & Output 05/21/18 05/22/18 05/22/18 23:59 07:59 15:59 Intake Total 1289 / 1289 779 / 779 Output Total 820 / 820 400 / 400 Balance 469 / 469 379 / 379 Weight 81 kg Consult Discharge Plan - Plan Referrals: Albertina Huerta MD [Primary Care Provider] - <Jovita Ledezma - Last Filed: 05/22/18 22:48> Date of Encounter: 05/22/18 Assessment and Plan (1) Acute respiratory failure with hypoxia Current Visit: Yes Status: Acute (2) Healthcare-associated pneumonia Current Visit: Yes Status: Acute (3) Septic shock Current Visit: Yes Status: Acute (4) GEORGI (acute kidney injury) Current Visit: No Status: Resolved (5) DVT prophylaxis Current Visit: Yes Status: Acute Objective PUL Vital signs: Last Vital Signs Temp 99.4 F 05/22/18 19:00 Pulse 93 05/22/18 22:00 Resp 22 05/22/18 22:00 BP 124/66 05/22/18 21:15 Pulse Ox 100 05/22/18 22:00 Results - Laboratory Findings CBC and BMP: 05/22/18 02:56 05/22/18 02:56 ABG ABG pH 7.39 pH Units (7.32-7.45) 05/20/18 10:57 ABG pCO2 31 mmHg (35-45) L 05/20/18 10:57 ABG pO2 123 mmHg (85-104) H 05/20/18 10:57 ABG O2 Saturation 99 % (95-98) H 05/20/18 10:57 PT/INR, D-dimer PT 18.8 Seconds (9.4-12.1) H 05/14/18 06:51 Abnormal lab findings: Abnormal lab results RBC 2.57 M/mcL (3.82-4.97) L 05/22/18 02:56 Hgb 7.2 g/dL (11.5-15.4) L 05/22/18 02:56 Hct 23.1 % (35.3-44.9) L 05/22/18 02:56 MCHC 31.2 g/dL (31.6-35.5) L 05/22/18 02:56 RDW 18.4 % (11.5-14.5) H 05/22/18 02:56 Band Neutrophils % 10.0 % (0-4) H 05/14/18 06:57 Nucleated RBCs/100 WBC 0.1 /100 WBC (0) H 05/18/18 03:15 Toxic Granulation Present (Not Present) A 05/16/18 03:00 Toxic Vacuolation Present (Not Present) A 05/15/18 03:15 Platelet Estimate Decreased (Normal) L 05/17/18 03:15 Polychromasia 1+ (Not Present) A 05/14/18 03:26 Hypochromasia Present (Not Present) A 05/17/18 03:15 Poikilocytosis 1+ (Not Present) A 05/16/18 03:00 Anisocytosis 1+ (Not Present) A 05/17/18 03:15 Macrocytosis Present (Not Present) A 05/17/18 03:15 PT 18.8 Seconds (9.4-12.1) H 05/14/18 06:51 APTT 22.5 Seconds (26.0-36.0) L 05/14/18 06:51 ABG pCO2 31 mmHg (35-45) L 05/20/18 10:57 ABG pO2 123 mmHg (85-104) H 05/20/18 10:57 ABG HCO3 19 mEq/L (21-27) L 05/20/18 10:57 ABG O2 Saturation 99 % (95-98) H 05/20/18 10:57 ABG Base Excess -5 mEq/L (-2 to 3) L 05/20/18 10:57 Chloride 119 mEq/L (98-107) H 05/22/18 02:56 Carbon Dioxide 21 mEq/L (23-29) L 05/22/18 02:56 Est GFR (Non-Af Amer) 55 (> 60) L 05/22/18 02:56 Glucose 157 mg/dL (70-105) H 05/22/18 02:56 POC Glucose 109 mg/dL (70-99) H 05/22/18 18:32 Calculated Osmolality 305 (280-300) H 05/22/18 02:56 Lactic Acid 3.6 mmol/L (0.5-2.2) H 05/14/18 20:40 Calcium 7.5 mg/dL (8.6-10.3) L 05/22/18 02:56 Venous Ioniz Calcium 1.13 mmol/L (1.15-1.35) L 05/19/18 03:46 Direct Bilirubin 0.3 mg/dL (0.0-0.2) H 05/14/18 02:57 AST 43 Units/L (13-39) H 05/14/18 06:57 Troponin I 0.07 ng/mL (< 0.04) H* 05/14/18 06:57 Serum Total Protein 5.6 g/dL (6.4-8.9) L 05/14/18 06:57 Albumin 2.4 g/dL (3.5-5.7) L 05/14/18 06:57 Albumin/Globulin Ratio 0.8 (1.1-2.2) L 05/14/18 06:57 Urine Clarity Cloudy (Clear) A 05/14/18 02:06 Urine Protein 30 mg/dL (Neg-Trace) H 05/14/18 02:06 Urine Bilirubin Small (Negative) H 05/14/18 02:06 Ur Leukocyte Esterase Large (Negative) H 05/14/18 02:06 Urine Microscopic RBC 3-5 per hpf (0-3) H 05/14/18 02:06 Urine Microscopic WBC 15-30 per hpf (0-3) H 05/14/18 02:06 Ur Squamous Epith Cells Moderate per lpf (None-Few) H 05/14/18 02:06 Urine Bacteria Moderate per hpf (None-Few) H 05/14/18 02:06 Ur Culture Indicated? YES (NO) A 05/14/18 02:06 - Clinical Findings Intake & Output: Intake & Output 05/22/18 05/22/18 05/22/18 07:59 15:59 23:59 Intake Total 779 / 779 100 / 100 175 / 175 Output Total 400 / 400 300 / 300 360 / 360 Balance 379 / 379 -200 / -200 -185 / -185 - Attending Attestation Attending Attestation I saw and evaluated this patient and my medical decision-making was reviewed with the Resident Physician. I agree with the documented findings, disposition and treatment plan as described except to the extent set forth below. We independently had [id number] contact with the patient Patient seen and examined at bedside Labs, radiology, chart personally reviewed. Management was reviewed during multidisciplinary critical care rounds. RECONSIGNMENT CLERK: Patient looks little bit agitated but she is following commands most likely due to toxic/metabolic encephalopathy due to underlying sepsis 05/20 Patient is off sedation on donepzil and seroquel patient calm drowsy on and off follow commands . 05/21 Patient is more relaxed is following simple commands . 05/22 Patient cries on and off can follow commands with no issues . To start on home RECONSIGNMENT CLERK medications Pulm: Patient has improving V/Q mismatch needs ventilatory support low tidal volume strategy acceptable oxygenation and ventilation secondary to MRSA pneumonia and Klebsiella patient is on appropriate antibiotics. 05/20 Patient has acceptable oxygenation and ventilation patient passed SBT extubated her she is drowsy will stop seroquel patient has decent cough if her work of breathing increases start her on BIPAP . 05/21 Patient is on NC acceptable oxygenation and stable to continue BIPAP overnight . 05/22 Patient has acceptable oxygenation and ventilation to continue current management for MRSA pneumonia and Klebsiella pneumonia . Will sign off transfer care to hospitalist . Patient can shifted to [facility] Cards: She is in septic shock on Levo phed with minimal requirement. To liberate from vasopressor not able to do yesterday will try some midodrine and albumin 05/20 To liberate from vasopressor today 05/21 Patient is off Vasopressor to continue diuresis as tolerated . 05/22 Patient is hemodynamically stable FEN-GI: Diet as per nutrition. advance diet as tolerated Renal: Acute kidney injury is getting better we will trend creatinine and urine output. ID: To continue broad-spectrum antibiotics sputum growing MRSA and Klebsiella. Heme/Onc: Continue DVT prophylaxis Endo: Glucose Monitored Integ/MSK: Skin Care per routine ICU Nursing Protocol to prevent ulcers. Lines: All lines examined without evidence of infection : Dispo: Patient can be transferred to 2 under hospitalist service CODE: Full code
[2018-05-22] MEDS: Vasopressin 40 UNIT in D5% in Water 100 ML IV SCH (18:00)
[2018-05-22] MEDS: FentaNYL (PF) 1,000 MCG in 0.9 % Sodium Chloride 80 ML IVC SCH (18:00)
[2018-05-22] MEDS: Clinimix E 5%-15% SOLUTION 2,000 ML with MVI, adult with vitamin K 10 ML IVC SCH (18:03)
[2018-05-22] MEDS: Norepinephrine 4 MG in D5% in Water 250 ML IVC SCH (19:16)
[2018-05-22] MEDS: Phenylephrine 10 MG in D5% in Water 250 ML IVC SCH (19:17)
[2018-05-23 03:16] LABS: Basophils % 0.2 %; Eosinophils # 0.4 K/mcL (0.0-0.6); Eosinophils % 2.9 %; Hematocrit 25.4 % (35.3-44.9); Hemoglobin 8.1 g/dL (11.5-15.4); Immature Granulocytes % 3.1 % (0-4); Lymphocytes # 1.5 K/mcL (0.6-4.6); Mean Corpuscular HGB Conc 31.9 g/dL (31.6-35.5); Mean Corpuscular Hemoglobin 28.6 pg (28.0-33.3); Mean Corpuscular Volume 89.8 fL (83.0-100.0); Mean Platelet Volume 10.7 fL (9.4-12.4); Monocytes # 0.6 K/mcL (0.0-1.3); Monocytes % 4.5 %; Neutrophils # 9.8 K/mcL (1.6-8.9); Platelet Count 258 K/mcL (140-400); Red Blood Count 2.83 M/mcL (3.82-4.97); Red Cell Distribution Width 18.1 % (11.5-14.5); Segmented Neutrophils % 77.3 %
[2018-05-23 03:40] LABS: BUN/Creatinine Ratio 24 (6-26); Blood Urea Nitrogen 21 mg/dL (8-23); Calcium 7.8 mg/dL (8.6-10.3); Carbon Dioxide 22 mEq/L (23-29); Chloride 115 mEq/L (98-107); Glucose 138 mg/dL (70-105); Magnesium 1.8 mg/dL (1.6-2.6); Osmolality,Calculated 295 (280-300); Potassium 4.2 mEq/L (3.5-5.1); Sodium 140 mEq/L (136-145); eGFR For Non-African Americans > 60 (> 60)
[2018-05-23] MEDS: Ipratropium/Albuterol Neb 3 ML IH SCH ×6 (03:57→23:44)
[2018-05-23] MEDS: Dexmedetomidine HCl 400 MCG/100 ML MLS IVC SCH ×4 (04:11→23:01)
[2018-05-23] MEDS ORDERED: *HR* LORazepam 2 MG/ML VIAL IVP ONE (04:59)
[2018-05-23] MEDS ORDERED: *HR* LORazepam 2 MG/ML VIAL ONE (05:03)
[2018-05-23] MEDS: *HR* Heparin 5,000 UNIT/ML VIAL SQ SCH ×2 (05:09→17:35)
--- NOTE | 2018-05-23 07:04 | Pulmonology Progress Note ---
Date of Encounter: 05/23/18 Time of Encounter: 07:04 Assessment and Plan (1) Acute respiratory failure with hypoxia Current Visit: Yes Status: Acute Patient seen and examined at bedside Labs, radiology, chart personally reviewed. Management was reviewed during multidisciplinary critical care rounds. 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 I also suspect has a component of ICU delirium. She appears oversedated today and will we will plan on decreasing psychotropic medications my stopping Seroquel would continue the rest of her regimen and current decrease Precedex continue to avoid sensory deprivation and we will attempt to reestablish sleep-wake cycle. Pulm: Acute hypoxic respiratory failure requiring mechanical ventilation she is been liberated from the vent but remains on BiPAP with increased respiratory rate which I suspect is a component of hydrostatic pulmonary edema will repeat chest x-ray today from standpoint of pneumonia this appears to be improving. The patient has a high risk of further decline resulting in reintubation. Cards: Septic shock has resolved blood pressure has been at times actually hypertensive she remains on Midrin post capillary leak from sepsis which can be held today. Will start diuresis for suspected hydrostatic pulmonary edema GI: Continue ppi while on continuous noninvasive ventilation Nutrition: Currently nothing by mouth because of need for BiPAP. She will need formal speech and swallow evaluation prior to initiation of oral diet. Cont TPN per Dietary recs Renal: UOP Monitored, Cont to Trend sCr and monitor Electrolytes. ID: Continue treatment of MRSA and Klebsiella pneumonia de-escalate based upon culture and sensitivities which are pending Heme/Onc: DVT prophylaxis given Endo: Glucose Monitored Integ/MSK: Skin Care per routine ICU Nursing Protocol to prevent ulcers. Lines: All lines examined without evidence of infection : Dispo: Remain in ICU because of high risk of clinical deterioration CODE: Full code (2) Delirium Current Visit: No Status: Acute (3) Healthcare-associated pneumonia Current Visit: Yes Status: Acute (4) Septic shock Current Visit: Yes Status: Acute (5) Dementia Current Visit: No Status: Chronic Qualifiers: Dementia type: unspecified type Dementia behavioral disturbance: with behavioral disturbance Qualified Code(s): F03.91 - Unspecified dementia with behavioral disturbance (6) DVT prophylaxis Current Visit: No Status: Acute Subjective Principal diagnosis: Dehydration, sepsis, pneumonia Interval history: Overnight per nursing staff the patient has remained hemodynamically stable she is clearly encephalopathic and cannot consistently follow commands. She has been maintained on BiPAP for support throughout the night with increased respiratory rate. Urine output has been stable. She remains afebrile Objective PUL Vital signs: Last Vital Signs Temp 98.6 F 05/23/18 03:13 Pulse 108 05/23/18 06:03 Resp 27 05/23/18 06:03 BP 133/90 05/23/18 06:03 Pulse Ox 97 05/23/18 06:03 General appearance: other (The patient is alert but unable to follow commands. She appears generally uncomfortable) Eyes: nonicteric Effort: mildly labored Auscultation: bilateral: rales Cardiovascular: regular rate and rhythm Gastrointestinal: normoactive bowel sounds, soft, non-tender Extremities: edema (She has spontaneous movement of all extremities without clear focal deficit although she was unable to follow commands to perform comprehensive neurological examination. Her pupils are equal round and reactive to light.) anxious Results - Laboratory Findings CBC and BMP: 05/23/18 03:00 05/23/18 03:00 ABG ABG pH 7.39 pH Units (7.32-7.45) 05/20/18 10:57 ABG pCO2 31 mmHg (35-45) L 05/20/18 10:57 ABG pO2 123 mmHg (85-104) H 05/20/18 10:57 ABG O2 Saturation 99 % (95-98) H 05/20/18 10:57 PT/INR, D-dimer PT 18.8 Seconds (9.4-12.1) H 05/14/18 06:51 Abnormal lab findings: Abnormal lab results WBC 12.6 K/mcL (4.3-11.1) H 05/23/18 03:00 RBC 2.83 M/mcL (3.82-4.97) L 05/23/18 03:00 Hgb 8.1 g/dL (11.5-15.4) L 05/23/18 03:00 Hct 25.4 % (35.3-44.9) L 05/23/18 03:00 RDW 18.1 % (11.5-14.5) H 05/23/18 03:00 Band Neutrophils % 10.0 % (0-4) H 05/14/18 06:57 Neutrophils # 9.8 K/mcL (1.6-8.9) H 05/23/18 03:00 Nucleated RBCs/100 WBC 0.1 /100 WBC (0) H 05/18/18 03:15 Toxic Granulation Present (Not Present) A 05/16/18 03:00 Toxic Vacuolation Present (Not Present) A 05/15/18 03:15 Platelet Estimate Decreased (Normal) L 05/17/18 03:15 Polychromasia 1+ (Not Present) A 05/14/18 03:26 Hypochromasia Present (Not Present) A 05/17/18 03:15 Poikilocytosis 1+ (Not Present) A 05/16/18 03:00 Anisocytosis 1+ (Not Present) A 05/17/18 03:15 Macrocytosis Present (Not Present) A 05/17/18 03:15 PT 18.8 Seconds (9.4-12.1) H 05/14/18 06:51 APTT 22.5 Seconds (26.0-36.0) L 05/14/18 06:51 ABG pCO2 31 mmHg (35-45) L 05/20/18 10:57 ABG pO2 123 mmHg (85-104) H 05/20/18 10:57 ABG HCO3 19 mEq/L (21-27) L 05/20/18 10:57 ABG O2 Saturation 99 % (95-98) H 05/20/18 10:57 ABG Base Excess -5 mEq/L (-2 to 3) L 05/20/18 10:57 Chloride 115 mEq/L (98-107) H 05/23/18 03:00 Carbon Dioxide 22 mEq/L (23-29) L 05/23/18 03:00 Glucose 138 mg/dL (70-105) H 05/23/18 03:00 POC Glucose 129 mg/dL (70-99) H 05/22/18 22:57 Lactic Acid 3.6 mmol/L (0.5-2.2) H 05/14/18 20:40 Calcium 7.8 mg/dL (8.6-10.3) L 05/23/18 03:00 Venous Ioniz Calcium 1.13 mmol/L (1.15-1.35) L 05/19/18 03:46 Direct Bilirubin 0.3 mg/dL (0.0-0.2) H 05/14/18 02:57 AST 43 Units/L (13-39) H 05/14/18 06:57 Troponin I 0.07 ng/mL (< 0.04) H* 05/14/18 06:57 Serum Total Protein 5.6 g/dL (6.4-8.9) L 05/14/18 06:57 Albumin 2.4 g/dL (3.5-5.7) L 05/14/18 06:57 Albumin/Globulin Ratio 0.8 (1.1-2.2) L 05/14/18 06:57 Urine Clarity Cloudy (Clear) A 05/14/18 02:06 Urine Protein 30 mg/dL (Neg-Trace) H 05/14/18 02:06 Urine Bilirubin Small (Negative) H 05/14/18 02:06 Ur Leukocyte Esterase Large (Negative) H 05/14/18 02:06 Urine Microscopic RBC 3-5 per hpf (0-3) H 05/14/18 02:06 Urine Microscopic WBC 15-30 per hpf (0-3) H 05/14/18 02:06 Ur Squamous Epith Cells Moderate per lpf (None-Few) H 05/14/18 02:06 Urine Bacteria Moderate per hpf (None-Few) H 05/14/18 02:06 Ur Culture Indicated? YES (NO) A 05/14/18 02:06 - Diagnostic Findings Chest x-ray: report reviewed, image reviewed - Clinical Findings Intake & Output: Intake & Output 05/22/18 05/22/18 05/23/18 15:59 23:59 07:59 Intake Total 100 / 100 275 / 275 450 / 450 Output Total 300 / 300 360 / 360 350 / 350 Balance -200 / -200 -85 / -85 100 / 100 Weight 82 kg Consult Discharge Plan - Plan Referrals: Albertina Huerta MD [Primary Care Provider] -
[2018-05-23] MEDS: Chlorhexidine Rinse 15 ML MOUTHWASH MM SCH ×2 (07:56→19:45)
[2018-05-23] MEDS: Levothyroxine Sodium 100 MCG VIAL IVP SCH (07:56)
[2018-05-23] MEDS: Pantoprazole 40 MG VIAL IVP SCH (07:57)
[2018-05-23] MEDS: Piperacillin/Tazobactam 3.375 GM in 0.9 % Sodium Chloride Mini Bag 100 ML IVPB SCH ×2 (07:57→16:03)
[2018-05-23] MEDS ORDERED: Furosemide 20 MG/2 ML VIAL IVP ONE (08:28)
[2018-05-23] MEDS: FentaNYL (PF) 1,000 MCG in 0.9 % Sodium Chloride 80 ML IVC SCH ×2 (10:50→20:09)
--- NOTE | 2018-05-23 10:59 | Procedure Note ---
Date of procedure: 05/23/18 Pre-op diagnosis: Acute Resp Failure Post-op diagnosis: same Procedure: Endotracheal intubation: Patient was noted to have persistent hypoxia that was unresponsive to noninvasive positive pressure ventilation. Given the failure of noninvasive positive pressure ventilation the decision was made to proceed with endotracheal intubation and mechanical ventilation. This was discussed with the family via telephone prior to the procedure and verbal consent was obtained. Patient was placed in supine position, oral airway was introduced, and patient was preoxygenated using the bag valve mask to an oxygen saturation in the high 90s. Etomidate 20 mg was then given for sedation. A size 4 CMAC video laryngoscope was inserted and a copious secretions is noted within the larynx. This was aggressively suctioned. An initial attempt at endotracheal intubation was then undertook with a 7.5 endotracheal tube. Significant resistance was met just inferior to the vocal cords. At this point the 7.5 ET tube was withdrawn and the patient was again oxygenated using the bag valve mask. The laryngoscope was again inserted and again showed a grade 1 view of the vocal cords. Patient was again suctioned both superior and inferior to the vocal cords and in a copious amount of secretions was suctioned. At this point a second attempt at endotracheal intubation was performed with a size 7 ET tube which then passed through the vocal cords without resistance. The stylette was withdrawn and the patient was noted to have colorimetric change on the CO2 detector and bilateral breath sounds. Patient was noted to have some postprocedure hypoxia and bradycardia and was found to have significant secretions within the ET tube. Bradycardia resolved spontaneously after approximately 30 seconds and hypoxia resolved with suctioning of the ET tube. Patient tolerated the procedure well, there are no immediate complications. The tube was initially inserted to 25 cm at the lips, this was withdrawn to 23 cm. Chest x-ray to confirm ET tube placement is pending. The attending physician, Dr. Pope, was present for the entire procedure. Anesthesia: IV sedation (Etomidate 20mg) Surgeon: Jules King Was there an teaching assistant present: No Estimated blood loss (cc): 0 Specimen: None Condition: critical Disposition: ICU
[2018-05-23] MEDS ORDERED: Lacri-Lube 3.5 GM TUBE BOTH EYES PRN (11:11)
[2018-05-23] MEDS: Lacri-Lube 3.5 GM TUBE BOTH EYES SCH ×4 (12:01→23:55)
[2018-05-23] MEDS: Vasopressin 40 UNIT in D5% in Water 100 ML IV SCH (12:01)
[2018-05-23 12:02] LABS: ABG Base Excess -3 mEq/L (-2 to 3); ABG HCO3 22 mEq/L (21-27); ABG Oxygen Saturation 99 % (95-98); ABG PCO2 39 mmHg (35-45); ABG PH 7.36 pH Units (7.32-7.45); ABG PO2 139 mmHg (85-104); ABG TCO2 23 mEq/L (20-26); Blood Gas Modality ASSIST CONTROL; Blood Gas PEEP 8 cm H2O; Blood Gas Respiration Rate 18; Blood Gas VT 450 cc
[2018-05-23] MEDS ORDERED: *HR* Norepinephrine 4 MG/4 ML VIAL IVC ONE (13:23)
[2018-05-23] MEDS ORDERED: *HR* Atropine Sulfate 1 MG/ML VIAL IVP ONE (13:23)
--- NOTE | 2018-05-23 16:42 | Palliative - Consult Note ---
Date of Encounter: 05/23/18 Time of Encounter: 14:30 - Assessment and Plan (1) Dementia Current Visit: No Status: Chronic Qualifiers: Dementia type: unspecified type Dementia behavioral disturbance: with behavioral disturbance Qualified Code(s): F03.91 - Unspecified dementia with behavioral disturbance (2) Status post Sunny's procedure Current Visit: No Status: Acute (3) Acute respiratory failure with hypoxia Current Visit: Yes Status: Acute Assessment and plan: Patient currently ventilator dependent. Continue ventilator managment per ICU team. (4) Septic shock Current Visit: Yes Status: Acute Assessment and plan: WBC increased to 11.6. Patient remains hypotensive. Continue management with fluids and IV antibiotics. (5) Goals of care, counseling/discussion Current Visit: Yes Status: Acute Assessment and plan: Conducted family meeting with daughter Leanna. Plan for repeat meeting tomorrow 2 pm. Daughter reports as long as patient is fighting for her life, she will continue to keep patient FULL CODE. Reports patient did not want Colostomy either but she "dealt with it." Spoke regarding patient's wishes, with response of she has dementia, she doesn't know what she wants anymore. Verbalized ok with correction inbutation and tracheostomy if needed. Reported goals of care to RUSTY Hou. Palliative care will continue to follow. Palliative-CN HPI - Data of Consult Patient: new to practice Consult date: 05/23/18 Requesting Physician: Flynn Avla MD Primary Care Provider: Albertina Huerta MD - Consult Narrative Palliative Care/Comfort Measures: Palliative care Reason for consult: Goals of care. Poor prognosis. History of present illness: Ms. Stinson is a 78 year old female Arrived to [facility] on 05/14/2018 for AMS and diagnosed with Acute respiratory failure with hypoxia, lactic acidosis, HAP, Hypernatremia, Encephalopathy, Elevated Troponin, and Septic Shock. Initial Chest Xray showing: Mild bibasilar airspace disease; this may represent pneumonia and/or atelectasis. ECG showing Sinus tachycardia with short AK Interval, Nonspecific ST & T wave abnormality. CT scan showing Progressive atrophy and microvascular ischemic changes and No acute intracranial hemorrhage or global mass effect with No evidence of an intracranial abscess. Patient admitted and intubated with placement confirmed. Repeat CT scan: Interval improvement of bilateral pleural effusions which are now trace; Bilateral lower lobe bronchial opacification with lower lobe consolidation and multifocal upper lobe bronchiolitis; Postsurgical change with adhesions and no evidence of bowel obstruction, perforation, or abscess; Interval resolution of ascites; and Redemonstration of cholelithiasis with no evidence of acute cholecystitis or biliary obstruction. Patients admission diagnosis included: Dehydration, Acute Respiratory failure with hypoxia, acute renal failure, Lactic acidosis, Hypernatremia, HAP, and S/P Hartmans procedure. Family adamant they cannot make decisions even though grave prognosis with multiorgan failure. Atrial line inserted. 05/16/18 new diagnosis of MRSA. Remains on ventilator support and diagnosed with Septic shock. KUB completed No evidence of an ileus and Nasogastric tube in place. Unable to wean from pressor support on 05/19/18. RUQ ultrasound Cholelithiasis and No other evidence of acute cholecystitis. 05/21/18 patient successfully extubated; however, did not return to mentation. 05/23/18-Patient became nonresponsive, hypoxemic and bradycardic; patient reintubated per families wishes. Palliative care consulted for goals of care discussion. Patient is resting with eyes closed while on ventilator. Patient easily responds to touch. No s/s of nonverbal pain or discomforted noted during assessment. Conducted meeting with patients daughter Leanna . CC: Flynn Alva MD Past Med Surg Social Fam HX - Past Medical History Medical history: hyperlipidemia, hypertension, thyroid disease, venous stasis, other Psychiatric history: other - Past Surgical History Surgical History: no surgical history - Social History Smoking Status: Never smoker Smokeless Tobacco Status: No Alcohol use: none Drug use: none Medications and Allergies Aspirin [Lo-Dose Aspirin EC] 81 mg PO DAILY 04/18/18 [History] Citalopram [CeleXA] 30 mg PO DAILY 04/18/18 [History] Donepezil HCl [Aricept] 10 mg PO HS 04/18/18 [History] Levothyroxine [Synthroid] 100 mcg PO DAILY 04/18/18 [History] Simvastatin [Zocor] 20 mg PO DAILY 04/18/18 [History] Cholecalciferol (D-3) [Vitamin D] 1,000 unit PO DAILY tablet 05/10/18 [Rx] Multivit/Ca/Min/Fe/FA [Thera M Plus] 1 tab PO DAILY tablet 05/10/18 [Rx] Tamsulosin [Flomax] 0.4 mg PO DAILY capsule 05/10/18 [Rx] traZODone [TraZODone] 50 mg PO HS tablet 05/10/18 [Rx] Amlodipine Besylate 10 mg PO DAILY 05/14/18 [History] Hydrocodone/Acetaminophen [Hydrocodon-Acetamin 7.5-325/15] 15 ml PO Q8H PRN [History] LORazepam Oral Conc [Ativan Oral Conc] 1 mg SL Q8H PRN 05/14/18 [History] 3 Allergy/AdvReac Type Severity Reaction Status Date / Time No Known Allergies Allergy Verified 04/20/17 08:49 ROS unobtainable: due to endotracheal tube Palliative Care-Exam - Constitutional Vitals: Temp Pulse Resp BP Pulse Ox 97.0 F L 97 27 121/60 100 05/23/18 16:00 05/23/18 16:00 05/23/18 16:00 05/23/18 16:00 05/23/18 16:00 General appearance: Present: no acute distress - Head Head Exam: Present: normal inspection - Eye Eye exam: Present: normal appearance, PERRL. Absent: periorbital swelling, periorbital tenderness - ENT ENT exam: Present: mucous membranes dry, normal external ear exam, normal oropharynx - Expanded ENT Exam Mouth Exam: Absent: drooling - Neck Neck exam: Present: full ROM, normal inspection - Respiratory Respiratory exam: Present: CTAB. Absent: accessory muscle use, respiratory distress - Cardiovascular Cardiovascular exam: Present: +S1, +S2 - Expanded Cardiovascular Exam Peripheral pulses: 1+: Radial (L), Radial (R), Posterior Tibialis (L), Posterior Tibialis (R), Dorsalis Pedis (L) PM, Dorsalis Pedis (R) PM - GI/Abdominal Exam GI/Abdominal exam: Present: diminished bowel sounds, soft. Absent: tenderness - Expanded GI/Abdominal Exam GI/Abdominal exam: Absent: ascites - Rectal Rectal exam: Present: deferred - Catheter Type: Urethral (Norton) - Extremities Exam Extremities exam: Present: pedal edema. Absent: calf tenderness - Neurological Exam Neurological exam: Present: altered - Expanded Neurological Exam Coma Scale Eye Opening: To Pain Coma Scale Motor Response: Localizes to Pain Coma Scale Verbal Response: None Coma Scale Total: 8 - Psychiatric Psychiatric exam: Present: flat affect - Skin Skin exam: Present: dry, intact, warm Internal Medicine - CN: Reslt - Labs CBC & Chem 7: 05/23/18 03:00 05/23/18 03:00 Labs: Short CBC 05/23/18 Range/Units 03:00 WBC 12.6 H (4.3-11.1) K/mcL Hgb 8.1 L (11.5-15.4) g/dL Hct 25.4 L (35.3-44.9) % Plt Count 258 (140-400) K/mcL Neutrophils # 9.8 H (1.6-8.9) K/mcL BMP 05/23/18 03:00 Sodium 140 Potassium 4.2 Chloride 115 H Carbon Dioxide 22 L BUN 21 Creatinine 0.87 Glucose 138 H Calcium 7.8 L - ABG Interpretation ABG results: ABG ABG pH 7.36 pH Units (7.32-7.45) 05/23/18 11:57 ABG pCO2 39 mmHg (35-45) 05/23/18 11:57 ABG pO2 139 mmHg (85-104) H 05/23/18 11:57 ABG O2 Saturation 99 % (95-98) H 05/23/18 11:57 PT/INR, D-dimer PT 18.8 Seconds (9.4-12.1) H 05/14/18 06:51 - Impressions Impressions Gallbladder Ultrasound 05/21/18 10:22 IMPRESSION: Cholelithiasis. No other evidence of acute cholecystitis. D/ / 05/21/2018 12:24:46 Diego Hernandez MD / bcadorian Interpreting Provider: Diego Hernandez MD Chest X-Ray 05/23/18 08:28 IMPRESSION: Persistent airspace and interstitial opacities bilaterally with likely some improvement to the consolidations previously noted to bilateral lower lobes. Findings may be on the basis of multifocal pneumonia. Continued follow-up recommended. D/ / 05/23/2018 09:25:45 Cuauhtemoc Navas MD / lorenzo Interpreting Provider: Cuauhtemoc Navas MD Chest X-Ray 05/23/18 10:46 IMPRESSION: Placement of endotracheal tube with tip low lying approximately 9 mm from the anu. Suggest retraction by 1.7 cm. [address]acement of enteric tube which is seen to extend into the stomach, distal extent not included in field of view. Improved aeration and lung volumes to the lungs bilaterally with still persistent airspace and interstitial opacities along with bilateral pleural effusions. D/ / 05/23/2018 11:29:50 Cuauhtemoc Navas MD / ozzy Interpreting Provider: Cuauhtemoc Navas MD X-Ray 05/23/18 10:46 IMPRESSION: Enteric tube present with both tip and side-port in the body of the stomach. D/ / Cuauhtemoc Navas MD / Cuauhtemoc Navas MD Interpreting Provider: Cuauhtemoc Navas MD Consult Discharge Plan - Plan Referrals: Albertina Huerta MD [Primary Care Provider] - Palliative Quality Palliative Quality: Screen for Code Status: Yes, Screen for Goals of Care: Yes, Screen for Pain: NA, If Pain Regimen Started, Initiate Bowel Regimen: NA, Screen for Nausea/Vomitting: NA Code Status: 05/14/18 06:50 Resuscitation Status: Active [RES] Routine Comment: Resuscitation Status: Full Code
[2018-05-23] MEDS ORDERED: Clinimix E 5%-15% SOLUTION 2,000 ML with MVI, adult with vitamin K 10 ML IVC SCH (17:00)
[2018-05-23] MEDS: Clinimix E 5%-15% SOLUTION 2,000 ML with MVI, adult with vitamin K 10 ML IVC SCH (17:37)
[2018-05-23] MEDS: Norepinephrine 4 MG in D5% in Water 250 ML IVC SCH ×2 (19:44→20:13)
[2018-05-23] MEDS: Phenylephrine 10 MG in D5% in Water 250 ML IVC SCH (23:00)
[2018-05-23] MEDS ORDERED: LORazepam 20 MG in 0.9 % Sodium Chloride Excel Bg 240 ML IVC SCH (23:00)
[2018-05-24] MEDS: Piperacillin/Tazobactam 3.375 GM in 0.9 % Sodium Chloride Mini Bag 100 ML IVPB SCH ×4 (00:01→23:38)
[2018-05-24] MEDS: FentaNYL (PF) 1,000 MCG in 0.9 % Sodium Chloride 80 ML IVC SCH ×4 (00:20→20:04)
[2018-05-24] MEDS: Ipratropium/Albuterol Neb 3 ML IH SCH ×5 (03:33→19:43)
[2018-05-24 04:19] LABS: BUN/Creatinine Ratio 36 (6-26); Blood Urea Nitrogen 27 mg/dL (8-23); Calcium 7.6 mg/dL (8.6-10.3); Carbon Dioxide 22 mEq/L (23-29); Chloride 110 mEq/L (98-107); Glucose 107 mg/dL (70-105); Magnesium 1.7 mg/dL (1.6-2.6); Osmolality,Calculated 292 (280-300); Phosphorous 3.1 mg/dL (2.7-4.5); Potassium 3.9 mEq/L (3.5-5.1); Sodium 138 mEq/L (136-145); eGFR For Non-African Americans > 60 (> 60)
[2018-05-24] MEDS: Lacri-Lube 3.5 GM TUBE BOTH EYES SCH ×6 (04:45→23:38)
[2018-05-24 05:11] LABS: ABG Base Excess -3 mEq/L (-2 to 3); ABG HCO3 21 mEq/L (21-27); ABG Oxygen Saturation 97 % (95-98); ABG PCO2 33 mmHg (35-45); ABG PH 7.41 pH Units (7.32-7.45); ABG PO2 86 mmHg (85-104); ABG TCO2 22 mEq/L (20-26); Blood Gas Modality PRVC; Blood Gas PEEP 8 cm H2O; Blood Gas Respiration Rate 18; Blood Gas VT 450 cc
[2018-05-24 05:20] LABS: VBG Ionized Calcium 1.17 mmol/L (1.15-1.35)
[2018-05-24] MEDS: *HR* Heparin 5,000 UNIT/ML VIAL SQ SCH ×2 (05:27→16:24)
[2018-05-24] MEDS: Potassium Chloride 40 MEQ/200 ML BAG IVPB PRN (05:28)
--- NOTE | 2018-05-24 07:30 | Pulmonology Progress Note ---
Date of Encounter: 05/24/18 Time of Encounter: 07:30 Assessment and Plan (1) Acute respiratory failure with hypoxia Current Visit: Yes Status: Acute Patient seen and examined at bedside Labs, radiology, chart personally reviewed. Management was reviewed during multidisciplinary critical care rounds. 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 There is no clear indication of a focal neurological deficit suggestive of stroke nor stereotypic behavior or obtundation that can be seen with clinical or subclinical seizures. I have opted to stop benzodiazepine as I suspect this will continue to worsen her clinical state and increase overall mortality. Continue fentanyl and Precedex will add a atopic antipsychotic after checking QTc which was within normal limits. May need follow infusion of propofol for agitation that that puts the patient at harm. 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 Acceptable gas exchange today on minimal vent requirements using of low tidal volume ventilatory strategy not a candidate for Spontaneous Breathing trial because of her encephalopathy minimal vent settings today with excellent oxygenation. Continue treatment for pneumonia and bronchodilators along with ventilator bundled prevent VAP Cards: Septic shock has resolved blood pressure has generally been stable but on the lower side today which is likely related to sedation GI: Stress ulcer prophylaxis given Nutrition: TPN per Dietary recs Renal: UOP Monitored, Cont to Trend sCr and monitor Electrolytes. ID: Continue treatment of MRSA and Klebsiella pneumonia de-escalate based upon culture and sensitivities which are pending; patient was recultured yesterday because of the amount of sputum that was suctioned from her airway. She remains afebrile. CBC pending from today to evaluate any worsening leukocytosis Heme/Onc: DVT prophylaxis given Endo: Glucose Monitored Integ/MSK: Skin Care per routine ICU Nursing Protocol to prevent ulcers. Lines: All lines examined without evidence of infection : Dispo: Remain in ICU because of high risk of clinical deterioration CODE: Full code Prognosis guarded. Palliative Care has Consulted. (2) Delirium Current Visit: No Status: Acute (3) Healthcare-associated pneumonia Current Visit: Yes Status: Acute (4) Septic shock Current Visit: Yes Status: Acute (5) Dementia Current Visit: No Status: Chronic Qualifiers: Dementia type: unspecified type Dementia behavioral disturbance: with behavioral disturbance Qualified Code(s): F03.91 - Unspecified dementia with behavioral disturbance (6) DVT prophylaxis Current Visit: No Status: Acute Subjective Principal diagnosis: Dehydration, sepsis, pneumonia Interval history: Patient had to be reintubated within the last 24 hours because of worsening respiratory failure complicated by encephalopathy. She had not transient hypoxemia which precipitated bradycardia after intubation this was likely related to significant mucus plugging that resolved with suctioning she has been off vasopressors over the course of the evening and heart rate has been stable and generally mildly tachycardic. Per nursing report she has had significant agitation despite the use of fentanyl and Precedex she continues to be unable to follow commands and because of ventilator dyssynchrony related to agitation the decision to start benzodiazepine was made overnight by the covering team. She is unable to answer questions today nor follow any commands Objective PUL Vital signs: Last Vital Signs Temp 98.4 F 05/24/18 04:49 Pulse 102 05/24/18 06:00 Resp 26 05/24/18 06:00 BP 126/75 05/24/18 06:00 Pulse Ox 99 05/24/18 06:00 General appearance: agitated, other (The patient is noted to intermittently thrash in bed moving all extremities and attempting to lift herself from the bed. Her eyes are clamped shut and she attempts to block attempts to open them. She does not follow any commands and there is no spontaneous opening of eyes to voice command) Eyes: nonicteric ENT: other (ET tube noted in satisfactory position) Effort: normal Auscultation: bilateral: rhonchi Cardiovascular: regular rate and rhythm Gastrointestinal: soft, non-tender, other (Ostomy site is pink and well perfused and there is stool in the ostomy bag) Integumentary: other (No evidence of new rash or petechiae/purpura) other (The patient is unable to cooperate fully with neurological examination to assess however she is noted to have spontaneous movement of all extremities without clear evidence of focal weakness her pupils are equal round and reactive to light there is no roving eye movements or nystagmus noted) Ventilator Settings Ventilator Settings: Ventilator Settings, Last 8 Hours Ventilator Tidal Volume 450 Setting Ventilator Tidal Volume 450 Setting Ventilator Tidal Volume 450 Setting Ventilator Tidal Volume 450 Setting Ventilator Tidal Volume 450 Setting Ventilator Tidal Volume 450 Setting Ventilator Tidal Volume 450 Setting Ventilator Tidal Volume 450 Setting Ventilator Tidal Volume 450 Setting Ventilator Tidal Volume 450 Setting Ventilator Tidal Volume 450 Setting Ventilator Tidal Volume 450 Setting Ventilator Respiratory Rate 18 Setting Ventilator Respiratory Rate 18 Setting Ventilator Respiratory Rate 18 Setting Ventilator Respiratory Rate 18 Setting Ventilator Respiratory Rate 18 Setting Ventilator Respiratory Rate 18 Setting Ventilator Respiratory Rate 18 Setting Ventilator Respiratory Rate 18 Setting Ventilator Respiratory Rate 18 Setting Ventilator Respiratory Rate 18 Setting Ventilator Respiratory Rate 18 Setting Ventilator Respiratory Rate 18 Setting Actual Respiratory Rate 26 Actual Respiratory Rate 22 Actual Respiratory Rate 28 Actual Respiratory Rate 21 Actual Respiratory Rate 21 Actual Respiratory Rate 24 Actual Respiratory Rate 23 Actual Respiratory Rate 18 Actual Respiratory Rate 18 Actual Respiratory Rate 20 Actual Respiratory Rate 22 Positive End Expiratory 8 Pressure Positive End Expiratory 8 Pressure Positive End Expiratory 8 Pressure Positive End Expiratory 8 Pressure Positive End Expiratory 8 Pressure Positive End Expiratory 8 Pressure Positive End Expiratory 8 Pressure Positive End Expiratory 8 Pressure Positive End Expiratory 8 Pressure Positive End Expiratory 8 Pressure Positive End Expiratory 8 Pressure Positive End Expiratory 8 Pressure Peak Inspiratory Airway 11 Pressure Peak Inspiratory Airway 12 Pressure Peak Inspiratory Airway 13 Pressure Peak Inspiratory Airway 11 Pressure Peak Inspiratory Airway 8.2 Pressure Peak Inspiratory Airway 24 Pressure Peak Inspiratory Airway 13 Pressure Peak Inspiratory Airway 23 Pressure Peak Inspiratory Airway 19 Pressure Peak Inspiratory Airway 11 Pressure Peak Inspiratory Airway 8.2 Pressure Results - Laboratory Findings CBC and BMP: 05/24/18 10:36 05/24/18 03:40 ABG ABG pH 7.41 pH Units (7.32-7.45) 05/24/18 05:07 ABG pCO2 33 mmHg (35-45) L 05/24/18 05:07 ABG pO2 86 mmHg (85-104) 05/24/18 05:07 ABG O2 Saturation 97 % (95-98) 05/24/18 05:07 PT/INR, D-dimer PT 18.8 Seconds (9.4-12.1) H 05/14/18 06:51 Abnormal lab findings: Abnormal lab results WBC 12.6 K/mcL (4.3-11.1) H 05/23/18 03:00 RBC 2.83 M/mcL (3.82-4.97) L 05/23/18 03:00 Hgb 8.1 g/dL (11.5-15.4) L 05/23/18 03:00 Hct 25.4 % (35.3-44.9) L 05/23/18 03:00 RDW 18.1 % (11.5-14.5) H 05/23/18 03:00 Band Neutrophils % 10.0 % (0-4) H 05/14/18 06:57 Neutrophils # 9.8 K/mcL (1.6-8.9) H 05/23/18 03:00 Nucleated RBCs/100 WBC 0.1 /100 WBC (0) H 05/18/18 03:15 Toxic Granulation Present (Not Present) A 05/16/18 03:00 Toxic Vacuolation Present (Not Present) A 05/15/18 03:15 Platelet Estimate Decreased (Normal) L 05/17/18 03:15 Polychromasia 1+ (Not Present) A 05/14/18 03:26 Hypochromasia Present (Not Present) A 05/17/18 03:15 Poikilocytosis 1+ (Not Present) A 05/16/18 03:00 Anisocytosis 1+ (Not Present) A 05/17/18 03:15 Macrocytosis Present (Not Present) A 05/17/18 03:15 PT 18.8 Seconds (9.4-12.1) H 05/14/18 06:51 APTT 22.5 Seconds (26.0-36.0) L 05/14/18 06:51 ABG pCO2 33 mmHg (35-45) L 05/24/18 05:07 ABG Base Excess -3 mEq/L (-2 to 3) L 05/24/18 05:07 Chloride 110 mEq/L (98-107) H 05/24/18 03:40 Carbon Dioxide 22 mEq/L (23-29) L 05/24/18 03:40 BUN 27 mg/dL (8-23) H 05/24/18 03:40 BUN/Creatinine Ratio 36 (6-26) H 05/24/18 03:40 Glucose 107 mg/dL (70-105) H 05/24/18 03:40 POC Glucose 130 mg/dL (70-99) H 05/23/18 23:49 Lactic Acid 3.6 mmol/L (0.5-2.2) H 05/14/18 20:40 Calcium 7.6 mg/dL (8.6-10.3) L 05/24/18 03:40 Direct Bilirubin 0.3 mg/dL (0.0-0.2) H 05/14/18 02:57 AST 43 Units/L (13-39) H 05/14/18 06:57 Troponin I 0.07 ng/mL (< 0.04) H* 05/14/18 06:57 Serum Total Protein 5.6 g/dL (6.4-8.9) L 05/14/18 06:57 Albumin 2.4 g/dL (3.5-5.7) L 05/14/18 06:57 Albumin/Globulin Ratio 0.8 (1.1-2.2) L 05/14/18 06:57 Urine Clarity Cloudy (Clear) A 05/14/18 02:06 Urine Protein 30 mg/dL (Neg-Trace) H 05/14/18 02:06 Urine Bilirubin Small (Negative) H 05/14/18 02:06 Ur Leukocyte Esterase Large (Negative) H 05/14/18 02:06 Urine Microscopic RBC 3-5 per hpf (0-3) H 05/14/18 02:06 Urine Microscopic WBC 15-30 per hpf (0-3) H 05/14/18 02:06 Ur Squamous Epith Cells Moderate per lpf (None-Few) H 05/14/18 02:06 Urine Bacteria Moderate per hpf (None-Few) H 05/14/18 02:06 Ur Culture Indicated? YES (NO) A 05/14/18 02:06 - Clinical Findings Intake & Output: Intake & Output 05/23/18 05/23/18 05/24/18 15:59 23:59 07:59 Intake Total 450 / 450 2179.7 / 2179.7 403.8 / 403.8 Output Total 1600 / 1600 250 / 250 1000 / 1000 Balance -1150 / -1150 1929.7 / 1929.7 -596.2 / -596.2 Weight 84.4 kg Consult Discharge Plan - Plan Referrals: Albertina Huerta MD [Primary Care Provider] -
[2018-05-24] MEDS: Pantoprazole 40 MG VIAL IVP SCH (07:58)
[2018-05-24] MEDS: Levothyroxine Sodium 100 MCG VIAL IVP SCH (07:58)
[2018-05-24] MEDS: Chlorhexidine Rinse 15 ML MOUTHWASH MM SCH ×2 (08:00→20:00)
[2018-05-24] MEDS: Vasopressin 40 UNIT in D5% in Water 100 ML IV SCH (08:29)
[2018-05-24] MEDS: Norepinephrine 4 MG in D5% in Water 250 ML IVC SCH ×3 (10:06→23:39)
[2018-05-24 10:54] LABS: Basophils % 0.2 %; Eosinophils # 0.4 K/mcL (0.0-0.6); Eosinophils % 2.3 %; Hematocrit 24.4 % (35.3-44.9); Hemoglobin 7.7 g/dL (11.5-15.4); Immature Granulocytes % 2.2 % (0-4); Lymphocytes # 1.7 K/mcL (0.6-4.6); Lymphocytes % 9.8 %; Mean Corpuscular HGB Conc 31.6 g/dL (31.6-35.5); Mean Corpuscular Hemoglobin 28.2 pg (28.0-33.3); Mean Corpuscular Volume 89.4 fL (83.0-100.0); Mean Platelet Volume 10.6 fL (9.4-12.4); Monocytes # 0.8 K/mcL (0.0-1.3); Monocytes % 4.6 %; Neutrophils # 14.4 K/mcL (1.6-8.9); Platelet Count 320 K/mcL (140-400); Red Blood Count 2.73 M/mcL (3.82-4.97); Red Cell Distribution Width 17.7 % (11.5-14.5); Segmented Neutrophils % 80.9 %
[2018-05-24] MEDS: Dexmedetomidine HCl 400 MCG/100 ML MLS IVC SCH ×3 (11:01→21:58)
--- NOTE | 2018-05-24 15:05 | Palliative Progress Note ---
Date of Encounter: 05/24/18 Time of Encounter: 14:00 - Assessment and plan (1) Dementia Current Visit: No Status: Chronic Assessment and plan: Patient has baseline dementia. Worsening delirium noted in ICU. Managed by ICU team. Qualifiers: Dementia type: unspecified type Dementia behavioral disturbance: with behavioral disturbance Qualified Code(s): F03.91 - Unspecified dementia with behavioral disturbance (2) Status post Sunny's procedure Current Visit: No Status: Acute (3) Acute respiratory failure with hypoxia Current Visit: Yes Status: Acute Assessment and plan: Patient remains intubated. Failed CPAP trial this am. Continue ventilator support at this time. (4) Septic shock Current Visit: Yes Status: Acute Assessment and plan: WBC worsening to 17.8. T 99F. Per documentation, worsening clinical picture. Continue aggressive treatment per ICU at this time. (5) Goals of care, counseling/discussion Current Visit: Yes Status: Acute Assessment and plan: Conducted meeting with patient's daughter Leanna. Updated on current treatment plan and review of current clinical status. Patient's daughter would like to stay the course for treatment at this time. Patient's daughter requested this procedure writer to leave contact information for patient's granddaughter to call for clinical update; given. Patient's daughter presents desire to give "a few more days with current treatment" and is considering whether to proceed with tracheostomy versus comfort care. Patient's daughter reports will make decision after this clinician gives update to patient's daughter. Palliative will continue to follow. CODE STATUS to remain FULL CODE at present time. - Time Spent With Patient Total time spent is greater than 50% in coordination of care (as documented) at patient's floor/unit and/or counseling patient: Discussed goals of care, code status, clinical status, and clinical prognosis. Greater than 35 minutes - Subjective Interval history: Patient easily aroused by verbal stimulation upon arrival for assessment. Patient has Fentanyl and Precedex infusing for comfort. Patient remains intubated; failed weaning trial this am. Patient's daughter Leanna present at bedside. Norton catheter intact with continued urine output. Patient remains on pressure support; BP 100/60 during assessment. Patient's temperature elevated at 99F axillary. Patient's WBC increased to 17.9 today. Conducted family update per arrangement with daughter, per arrangement. Primary RN at bedside during conversation. Reviewed clinical update with review of medication patient receiving. - Constitutional Vitals: Abnormal lab results WBC 17.8 K/mcL (4.3-11.1) H 05/24/18 10:36 RBC 2.73 M/mcL (3.82-4.97) L 05/24/18 10:36 Hgb 7.7 g/dL (11.5-15.4) L 05/24/18 10:36 Hct 24.4 % (35.3-44.9) L 05/24/18 10:36 RDW 17.7 % (11.5-14.5) H 05/24/18 10:36 Band Neutrophils % 10.0 % (0-4) H 05/14/18 06:57 Neutrophils # 14.4 K/mcL (1.6-8.9) H 05/24/18 10:36 Nucleated RBCs/100 WBC 0.1 /100 WBC (0) H 05/18/18 03:15 Toxic Granulation Present (Not Present) A 05/16/18 03:00 Toxic Vacuolation Present (Not Present) A 05/15/18 03:15 Platelet Estimate Decreased (Normal) L 05/17/18 03:15 Polychromasia 1+ (Not Present) A 05/14/18 03:26 Hypochromasia Present (Not Present) A 05/17/18 03:15 Poikilocytosis 1+ (Not Present) A 05/16/18 03:00 Anisocytosis 1+ (Not Present) A 05/17/18 03:15 Macrocytosis Present (Not Present) A 05/17/18 03:15 PT 18.8 Seconds (9.4-12.1) H 05/14/18 06:51 APTT 22.5 Seconds (26.0-36.0) L 05/14/18 06:51 ABG pCO2 33 mmHg (35-45) L 05/24/18 05:07 ABG Base Excess -3 mEq/L (-2 to 3) L 05/24/18 05:07 Chloride 110 mEq/L (98-107) H 05/24/18 03:40 Carbon Dioxide 22 mEq/L (23-29) L 05/24/18 03:40 BUN 27 mg/dL (8-23) H 05/24/18 03:40 BUN/Creatinine Ratio 36 (6-26) H 05/24/18 03:40 Glucose 107 mg/dL (70-105) H 05/24/18 03:40 Lactic Acid 3.6 mmol/L (0.5-2.2) H 05/14/18 20:40 Calcium 7.6 mg/dL (8.6-10.3) L 05/24/18 03:40 Direct Bilirubin 0.3 mg/dL (0.0-0.2) H 05/14/18 02:57 AST 43 Units/L (13-39) H 05/14/18 06:57 Troponin I 0.07 ng/mL (< 0.04) H* 05/14/18 06:57 Serum Total Protein 5.6 g/dL (6.4-8.9) L 05/14/18 06:57 Albumin 2.4 g/dL (3.5-5.7) L 05/14/18 06:57 Albumin/Globulin Ratio 0.8 (1.1-2.2) L 05/14/18 06:57 Urine Clarity Cloudy (Clear) A 05/14/18 02:06 Urine Protein 30 mg/dL (Neg-Trace) H 05/14/18 02:06 Urine Bilirubin Small (Negative) H 05/14/18 02:06 Ur Leukocyte Esterase Large (Negative) H 05/14/18 02:06 Urine Microscopic RBC 3-5 per hpf (0-3) H 05/14/18 02:06 Urine Microscopic WBC 15-30 per hpf (0-3) H 05/14/18 02:06 Ur Squamous Epith Cells Moderate per lpf (None-Few) H 05/14/18 02:06 Urine Bacteria Moderate per hpf (None-Few) H 05/14/18 02:06 Ur Culture Indicated? YES (NO) A 05/14/18 02:06 General appearance: Present: cooperative, mild distress - Head Head exam: Present: atraumatic, normal inspection - Eye Eye exam: Present: normal appearance. Absent: periorbital swelling, periorbital tenderness - ENT ENT exam: Present: mucous membranes dry, normal external ear exam - Neck Neck exam: Present: full ROM, normal inspection - Respiratory Respiratory exam: Present: rhonchi, wheezes - Cardiovascular Cardiovascular exam: Present: irregular rhythm - GI/Abdominal GI/Abdominal exam: Present: hyperactive bowel sounds, soft. Absent: tenderness - Rectal Rectal exam: Present: deferred - Extremities Exam Extremities exam: Present: pedal edema. Absent: normal inspection (BUE and BLE edema) - Neurological Exam Neurological exam: Present: altered - Psychiatric Psychiatric exam: Present: agitated, anxious - Skin Skin exam: Present: pallor, warm Palliative Quality Palliative Quality: Screen for Code Status: Yes, Screen for Goals of Care: Yes, Screen for Pain: NA, If Pain Regimen Started, Initiate Bowel Regimen: NA, Screen for Nausea/Vomitting: NA Code Status: 05/14/18 06:50 Resuscitation Status: Active [RES] Routine Comment: Resuscitation Status: Full Code - Labs CBC & Chem 7: 05/24/18 10:36 05/24/18 03:40 Labs: Laboratory Results - last 24 hr 05/23/18 05/23/18 05/23/18 15:26 19:45 23:49 WBC RBC Hgb Hct MCV MCH MCHC RDW Plt Count MPV Immature Gran % Seg Neutrophils % Lymphocytes % Monocytes % Eosinophils % Basophils % Neutrophils # Lymphocytes # Monocytes # Eosinophils # Basophils # Sample Site ABG pH ABG pCO2 ABG pO2 ABG HCO3 ABG Total CO2 ABG O2 Saturation ABG Base Excess Chad Test Respiration Rate O2 Delivery Device Blood Gas Modality Inspired O2 Tidal Volume PEEP Sodium Potassium Chloride Carbon Dioxide BUN Creatinine Est GFR ( Amer) Est GFR (Non-Af Amer) BUN/Creatinine Ratio Glucose POC Glucose 145 H 128 H 130 H Calculated Osmolality Calcium Venous Ioniz Calcium Phosphorus Magnesium 05/24/18 05/24/18 05/24/18 03:40 05:07 05:15 WBC RBC Hgb Hct MCV MCH MCHC RDW Plt Count MPV Immature Gran % Seg Neutrophils % Lymphocytes % Monocytes % Eosinophils % Basophils % Neutrophils # Lymphocytes # Monocytes # Eosinophils # Basophils # Sample Site R Radial ABG pH 7.41 ABG pCO2 33 L ABG pO2 86 ABG HCO3 21 ABG Total CO2 22 ABG O2 Saturation 97 ABG Base Excess -3 L Chad Test N/A Respiration Rate 18 O2 Delivery Device Adult Vent Blood Gas Modality PRVC Inspired O2 30.0 Tidal Volume 450 PEEP 8 Sodium 138 Potassium 3.9 Chloride 110 H Carbon Dioxide 22 L BUN 27 H Creatinine 0.76 Est GFR ( Amer) > 60 Est GFR (Non-Af Amer) > 60 BUN/Creatinine Ratio 36 H Glucose 107 H POC Glucose Calculated Osmolality 292 Calcium 7.6 L Venous Ioniz Calcium 1.17 Phosphorus 3.1 Magnesium 1.7 05/24/18 05/24/18 05/24/18 07:35 10:36 10:56 WBC 17.8 H RBC 2.73 L Hgb 7.7 L Hct 24.4 L MCV 89.4 MCH 28.2 MCHC 31.6 RDW 17.7 H Plt Count 320 MPV 10.6 Immature Gran % 2.2 Seg Neutrophils % 80.9 Lymphocytes % 9.8 Monocytes % 4.6 Eosinophils % 2.3 Basophils % 0.2 Neutrophils # 14.4 H Lymphocytes # 1.7 Monocytes # 0.8 Eosinophils # 0.4 Basophils # 0.0 Sample Site ABG pH ABG pCO2 ABG pO2 ABG HCO3 ABG Total CO2 ABG O2 Saturation ABG Base Excess Chad Test Respiration Rate O2 Delivery Device Blood Gas Modality Inspired O2 Tidal Volume PEEP Sodium Potassium Chloride Carbon Dioxide BUN Creatinine Est GFR ( Amer) Est GFR (Non-Af Amer) BUN/Creatinine Ratio Glucose POC Glucose 97 95 Calculated Osmolality Calcium Venous Ioniz Calcium Phosphorus Magnesium - ABG Interpretation ABG results: ABG ABG pH 7.41 pH Units (7.32-7.45) 05/24/18 05:07 ABG pCO2 33 mmHg (35-45) L 05/24/18 05:07 ABG pO2 86 mmHg (85-104) 05/24/18 05:07 ABG O2 Saturation 97 % (95-98) 05/24/18 05:07 PT/INR, D-dimer PT 18.8 Seconds (9.4-12.1) H 05/14/18 06:51 Consult Discharge Plan - Plan Referrals: Albertina Huerta MD [Primary Care Provider] -
[2018-05-24] MEDS ORDERED: Clinimix E 5%-20% SOLUTION 2,000 ML with MVI, adult with vitamin K 10 ML IVC SCH (17:00)
[2018-05-24] MEDS: Phenylephrine 10 MG in D5% in Water 250 ML IVC SCH (23:30)
[2018-05-25] MEDS: Ipratropium/Albuterol Neb 3 ML IH SCH ×7 (00:32→23:27)
[2018-05-25] MEDS: FentaNYL (PF) 1,000 MCG in 0.9 % Sodium Chloride 80 ML IVC SCH ×3 (03:55→21:47)
[2018-05-25] MEDS: Lacri-Lube 3.5 GM TUBE BOTH EYES SCH ×5 (03:57→20:25)
[2018-05-25 04:22] LABS: Basophils # 0.1 K/mcL (0.0-0.2); Basophils % 0.5 %; Eosinophils # 0.4 K/mcL (0.0-0.6); Eosinophils % 3.5 %; Hematocrit 22.9 % (35.3-44.9); Hemoglobin 7.2 g/dL (11.5-15.4); Immature Granulocytes % 2.4 % (0-4); Lymphocytes # 1.4 K/mcL (0.6-4.6); Lymphocytes % 11.7 %; Mean Corpuscular HGB Conc 31.4 g/dL (31.6-35.5); Mean Corpuscular Hemoglobin 28.2 pg (28.0-33.3); Mean Corpuscular Volume 89.8 fL (83.0-100.0); Mean Platelet Volume 10.6 fL (9.4-12.4); Monocytes # 0.6 K/mcL (0.0-1.3); Monocytes % 4.6 %; Neutrophils # 9.2 K/mcL (1.6-8.9); Platelet Count 303 K/mcL (140-400); Red Blood Count 2.55 M/mcL (3.82-4.97); Segmented Neutrophils % 77.3 %
[2018-05-25 04:25] LABS: BUN/Creatinine Ratio 29 (6-26); Blood Urea Nitrogen 27 mg/dL (8-23); Calcium 7.6 mg/dL (8.6-10.3); Carbon Dioxide 21 mEq/L (23-29); Chloride 109 mEq/L (98-107); Glucose 134 mg/dL (70-105); Magnesium 1.8 mg/dL (1.6-2.6); Osmolality,Calculated 285 (280-300); Phosphorous 3.1 mg/dL (2.7-4.5); Potassium 4.2 mEq/L (3.5-5.1); Sodium 134 mEq/L (136-145); eGFR For Non-African Americans 59 (> 60)
[2018-05-25] MEDS: Vasopressin 40 UNIT in D5% in Water 100 ML IV SCH (04:54)
[2018-05-25] MEDS: *HR* Heparin 5,000 UNIT/ML VIAL SQ SCH ×2 (05:04→18:22)
[2018-05-25 05:53] LABS: ABG Base Excess -3 mEq/L (-2 to 3); ABG HCO3 21 mEq/L (21-27); ABG Oxygen Saturation 98 % (95-98); ABG PCO2 33 mmHg (35-45); ABG PH 7.41 pH Units (7.32-7.45); ABG PO2 95 mmHg (85-104); ABG TCO2 22 mEq/L (20-26); Blood Gas PEEP 8 cm H2O; Blood Gas Respiration Rate 18; Blood Gas VT 450 cc
[2018-05-25] MEDS: Dexmedetomidine HCl 400 MCG/100 ML MLS IVC SCH ×3 (06:23→20:24)
--- NOTE | 2018-05-25 07:07 | Pulmonology Progress Note ---
Date of Encounter: 05/25/18 Time of Encounter: 07:07 Assessment and Plan (1) Acute respiratory failure with hypoxia Current Visit: Yes Status: Acute Patient seen and examined at bedside Labs, radiology, chart personally reviewed. Management was reviewed during multidisciplinary critical care rounds. 77-year-old woman with underlying dementia and maintain on multiple psychotropic medications who presented with respiratory failure and septic shock secondary to multi-pathogen pneumonia including Klebsiella and MRSA requiring intubation mechanical ventilation she was liberated from the ventilator but had to be reintubated on 05/23 she continues to demonstrate marked hyperactive delirium SANITARY AIDE: Remains delirious which is likely multifactorial including toxins related to sepsis as well as psychotropic medication imbalance along with ICU delirium. There is no clear indication of a focal neurological deficit suggestive of stroke nor stereotypic behavior or obtundation that can be seen with clinical or subclinical seizures. Stop propfol today Continue fentanyl and Precedex increase dose of seroquel. Avoidance of sensory deprivation. Pulm: Acute hypoxic respiratory failure requiring mechanical ventilation. Acceptable gas exchange today on minimal vent requirements using of low tidal volume ventilatory strategy not a candidate for Spontaneous Breathing trial because of her encephalopathy minimal vent settings today with excellent oxygenation. Continue treatment for pneumonia and bronchodilators along with ventilator bundled prevent VAP Cards: Septic shock has resolved blood pressure has remained hypotensive related to sedation use I suspect with decreasing her sedation this will improve as well urine output remained stable GI: Stress ulcer prophylaxis given Nutrition: TPN per Dietary recs Renal: UOP Monitored, Cont to Trend sCr and monitor Electrolytes. ID: Continue treatment of MRSA and Klebsiella pneumonia repeat sputum was without bacteria white count has trended down I would continue current treatment Heme/Onc: DVT prophylaxis given Endo: Glucose Monitored Integ/MSK: Skin Care per routine ICU Nursing Protocol to prevent ulcers. Lines: All lines examined without evidence of infection : Dispo: Remain in ICU for ventilator management CODE: Full code Prognosis guarded. Palliative Care following closely and appreciate their assessment and plan (2) Delirium Current Visit: No Status: Acute (3) Healthcare-associated pneumonia Current Visit: Yes Status: Acute (4) Septic shock Current Visit: Yes Status: Acute (5) Dementia Current Visit: No Status: Chronic Qualifiers: Dementia type: unspecified type Dementia behavioral disturbance: with behavioral disturbance Qualified Code(s): F03.91 - Unspecified dementia with behavioral disturbance (6) DVT prophylaxis Current Visit: No Status: Acute Subjective Principal diagnosis: Dehydration, sepsis, pneumonia Interval history: Over last 24 hours patient has demonstrated hyperactive delirium requiring increase in sedation she is now on 3 infusions of sedative including fentanyl Precedex and propofol this is caused hypotension and thus low-dose infusion of vasopressor was started. She has no other signs of worsening sepsis that would be complicating this picture I was able to go in the room today and actually stopped the propofol and cut the rest of the sedation and half she is agitated but does have more response for example she is able to raise her eyebrows to my voice command and I can get her to spontaneously move all extremities occasionally to my voice command. She remains afebrile white count trending down Objective PUL Vital signs: Last Vital Signs Temp 99.0 F 05/25/18 04:38 Pulse 78 05/25/18 06:00 Resp 18 05/25/18 06:32 BP 95/44 05/25/18 06:32 Pulse Ox 97 05/25/18 06:32 General appearance: other (Office station she continues to raise her head up off the bed and move all extremities and attempt for yourself from the restraints 7 placed for her safety. During name she raises her eyebrows and occasionally has opened her eyes but the movements and generally made nonpurposeful) Eyes: nonicteric ENT: other (Endotracheal tube noticed in satisfactory position) Effort: normal Auscultation: bilateral: rhonchi Cardiovascular: regular rate and rhythm Gastrointestinal: normoactive bowel sounds, soft, non-tender, other (Ostomy site noted which is pink well perfused and there is a small amount of stool in the collection bag) Extremities: no cyanosis, no edema other (She has less symmetric movement of all extremities does not appear to have a gross focal deficit her pupils are equal round and reactive to light) anxious Ventilator Settings Ventilator Settings: Ventilator Settings, Last 8 Hours Ventilator Tidal Volume 450 Setting Ventilator Tidal Volume 450 Setting Ventilator Tidal Volume 450 Setting Ventilator Tidal Volume 450 Setting Ventilator Tidal Volume 450 Setting Ventilator Tidal Volume 450 Setting Ventilator Tidal Volume 450 Setting Ventilator Tidal Volume 450 Setting Ventilator Tidal Volume 450 Setting Ventilator Tidal Volume 450 Setting Ventilator Tidal Volume 450 Setting Ventilator Tidal Volume 450 Setting Ventilator Respiratory Rate 18 Setting Ventilator Respiratory Rate 18 Setting Ventilator Respiratory Rate 18 Setting Ventilator Respiratory Rate 18 Setting Ventilator Respiratory Rate 18 Setting Ventilator Respiratory Rate 18 Setting Ventilator Respiratory Rate 18 Setting Ventilator Respiratory Rate 18 Setting Ventilator Respiratory Rate 18 Setting Ventilator Respiratory Rate 18 Setting Ventilator Respiratory Rate 18 Setting Ventilator Respiratory Rate 18 Setting Actual Respiratory Rate 19 Actual Respiratory Rate 22 Actual Respiratory Rate 22 Actual Respiratory Rate 20 Actual Respiratory Rate 26 Actual Respiratory Rate 23 Actual Respiratory Rate 22 Actual Respiratory Rate 22 Actual Respiratory Rate 22 Actual Respiratory Rate 19 Actual Respiratory Rate 18 Positive End Expiratory 8 Pressure Positive End Expiratory 8 Pressure Positive End Expiratory 8 Pressure Positive End Expiratory 8 Pressure Positive End Expiratory 8 Pressure Positive End Expiratory 8 Pressure Positive End Expiratory 8 Pressure Positive End Expiratory 8 Pressure Positive End Expiratory 8 Pressure Positive End Expiratory 8 Pressure Positive End Expiratory 8 Pressure Positive End Expiratory 8 Pressure Peak Inspiratory Airway 13 Pressure Peak Inspiratory Airway 11 Pressure Peak Inspiratory Airway 10 Pressure Peak Inspiratory Airway 11 Pressure Peak Inspiratory Airway 13 Pressure Peak Inspiratory Airway 12 Pressure Peak Inspiratory Airway 17 Pressure Peak Inspiratory Airway 11 Pressure Peak Inspiratory Airway 14 Pressure Peak Inspiratory Airway 26 Pressure Peak Inspiratory Airway 14 Pressure Results - Laboratory Findings CBC and BMP: 05/25/18 03:50 05/25/18 03:50 ABG ABG pH 7.41 pH Units (7.32-7.45) 05/25/18 05:49 ABG pCO2 33 mmHg (35-45) L 05/25/18 05:49 ABG pO2 95 mmHg (85-104) 05/25/18 05:49 ABG O2 Saturation 98 % (95-98) 05/25/18 05:49 PT/INR, D-dimer PT 18.8 Seconds (9.4-12.1) H 05/14/18 06:51 Abnormal lab findings: Abnormal lab results WBC 11.9 K/mcL (4.3-11.1) H 05/25/18 03:50 RBC 2.55 M/mcL (3.82-4.97) L 05/25/18 03:50 Hgb 7.2 g/dL (11.5-15.4) L 05/25/18 03:50 Hct 22.9 % (35.3-44.9) L 05/25/18 03:50 MCHC 31.4 g/dL (31.6-35.5) L 05/25/18 03:50 RDW 18.0 % (11.5-14.5) H 05/25/18 03:50 Band Neutrophils % 10.0 % (0-4) H 05/14/18 06:57 Neutrophils # 9.2 K/mcL (1.6-8.9) H 05/25/18 03:50 Nucleated RBCs/100 WBC 0.1 /100 WBC (0) H 05/18/18 03:15 Toxic Granulation Present (Not Present) A 05/16/18 03:00 Toxic Vacuolation Present (Not Present) A 05/15/18 03:15 Platelet Estimate Decreased (Normal) L 05/17/18 03:15 Polychromasia 1+ (Not Present) A 05/14/18 03:26 Hypochromasia Present (Not Present) A 05/17/18 03:15 Poikilocytosis 1+ (Not Present) A 05/16/18 03:00 Anisocytosis 1+ (Not Present) A 05/17/18 03:15 Macrocytosis Present (Not Present) A 05/17/18 03:15 PT 18.8 Seconds (9.4-12.1) H 05/14/18 06:51 APTT 22.5 Seconds (26.0-36.0) L 05/14/18 06:51 ABG pCO2 33 mmHg (35-45) L 05/25/18 05:49 ABG Base Excess -3 mEq/L (-2 to 3) L 05/25/18 05:49 Sodium 134 mEq/L (136-145) L 05/25/18 03:50 Chloride 109 mEq/L (98-107) H 05/25/18 03:50 Carbon Dioxide 21 mEq/L (23-29) L 05/25/18 03:50 BUN 27 mg/dL (8-23) H 05/25/18 03:50 Est GFR (Non-Af Amer) 59 (> 60) L 05/25/18 03:50 BUN/Creatinine Ratio 29 (6-26) H 05/25/18 03:50 Glucose 134 mg/dL (70-105) H 05/25/18 03:50 POC Glucose 129 mg/dL (70-99) H 05/25/18 04:06 Lactic Acid 3.6 mmol/L (0.5-2.2) H 05/14/18 20:40 Calcium 7.6 mg/dL (8.6-10.3) L 05/25/18 03:50 Direct Bilirubin 0.3 mg/dL (0.0-0.2) H 05/14/18 02:57 AST 43 Units/L (13-39) H 05/14/18 06:57 Troponin I 0.07 ng/mL (< 0.04) H* 05/14/18 06:57 Serum Total Protein 5.6 g/dL (6.4-8.9) L 05/14/18 06:57 Albumin 2.4 g/dL (3.5-5.7) L 05/14/18 06:57 Albumin/Globulin Ratio 0.8 (1.1-2.2) L 05/14/18 06:57 Urine Clarity Cloudy (Clear) A 05/14/18 02:06 Urine Protein 30 mg/dL (Neg-Trace) H 05/14/18 02:06 Urine Bilirubin Small (Negative) H 05/14/18 02:06 Ur Leukocyte Esterase Large (Negative) H 05/14/18 02:06 Urine Microscopic RBC 3-5 per hpf (0-3) H 05/14/18 02:06 Urine Microscopic WBC 15-30 per hpf (0-3) H 05/14/18 02:06 Ur Squamous Epith Cells Moderate per lpf (None-Few) H 05/14/18 02:06 Urine Bacteria Moderate per hpf (None-Few) H 05/14/18 02:06 Ur Culture Indicated? YES (NO) A 05/14/18 02:06 - Microbiology Findings Microbiology Findings: Microbiology, Last 48 Hours 05/24/18 14:10 Sputum Culture - Preliminary Sputum 05/24/18 12:51 Blood Culture - Preliminary Peripheral Venipuncture Culture is incubating and being continuously monitored for growth. Final report to follow. 05/24/18 12:51 Blood Culture - Preliminary Peripheral Venipuncture Culture is incubating and being continuously monitored for growth. Final report to follow. - Clinical Findings Intake & Output: Intake & Output 05/24/18 05/24/18 05/25/18 15:59 23:59 07:59 Intake Total 771.2 / 771.2 2642 / 2642 610 / 610 Output Total 525 / 525 650 / 650 900 / 900 Balance 246.2 / 246.2 1991 / 1991 -290 / -290 Weight 85.4 kg - VTE Documentation of Mechanical Device: Intermittent pneumatic compression device Consult Discharge Plan - Plan Referrals: Albertina Huerta MD [Primary Care Provider] -
[2018-05-25] MEDS: Chlorhexidine Rinse 15 ML MOUTHWASH MM SCH ×2 (07:42→20:56)
[2018-05-25] MEDS: Pantoprazole 40 MG VIAL IVP SCH (07:43)
[2018-05-25] MEDS: Levothyroxine Sodium 100 MCG VIAL IVP SCH (07:43)
[2018-05-25] MEDS: Piperacillin/Tazobactam 3.375 GM in 0.9 % Sodium Chloride Mini Bag 100 ML IVPB SCH (07:43)
[2018-05-25] MEDS: Norepinephrine 4 MG in D5% in Water 250 ML IVC SCH ×2 (11:59→20:53)
[2018-05-25] MEDS ORDERED: Aminoglycoside Consult 1 EACH MC ONE (12:05)
[2018-05-25] MEDS ORDERED: *HR* Etomidate 20 MG/10 ML AMPUL IVP ONE (12:36)
--- NOTE | 2018-05-25 13:30 | Event Note ---
Date of Encounter: 05/25/18 Time of Encounter: 12:30 Conducted family meeting with patient's daughter Leanna. Reports family has discussed goals of care with each other and desires to continue aggressive treatment with FULL CODE at this time. Daughter reports even though she wants her mom comfortable, does not want to change any goals of care or CODE STATUS until other daughter able to come visit. Family reports they will not make any changes until faced with Tracheostomy/PEG/Ventilator permanently. Spoke with Rama OJEDA to update on plan. Palliative care will continue to follow at a distance.
[2018-05-25] MEDS ORDERED: Clinimix E 5%-20% SOLUTION 2,000 ML with MVI, adult with vitamin K 10 ML IVC SCH (17:00)
--- NOTE | 2018-05-25 19:57 | Electrocardiograph Report ---
[place] [id number] Test Date: 2018-05-24 Pat Name: Preeti Stinson Department: 109 Room: [facility] Gender: F [employer]: : 1940 Requested By: Carmelo Pope Order Number: [id number] Reading MD: Viji Simons Measurements Intervals [place] Rate: 112 P: 57 NC: 106 QRS: 43 QRSD: 84 T: 24 QT: 319 QTc: 385 Interpretive Statements SINUS TACHYCARDIA WITH SHORT NC INTERVAL NONSPECIFIC T-WAVE ABNORMALITY ABNORMAL RHYTHM ECG Electronically Signed On 05-25-2018 19:56:18 EDT by Viji Simons
[2018-05-26] MEDS: Dexmedetomidine HCl 400 MCG/100 ML MLS IVC SCH ×4 (03:14→23:53)
[2018-05-26] MEDS: Lacri-Lube 3.5 GM TUBE BOTH EYES SCH ×6 (04:00→21:52)
[2018-05-26] MEDS: Ipratropium/Albuterol Neb 3 ML IH SCH ×6 (04:05→23:50)
[2018-05-26 04:38] LABS: Basophils # 0.1 K/mcL (0.0-0.2); Basophils % 0.5 %; Eosinophils # 0.3 K/mcL (0.0-0.6); Eosinophils % 2.6 %; Hematocrit 22.3 % (35.3-44.9); Hemoglobin 6.9 g/dL (11.5-15.4); Immature Granulocytes % 2.1 % (0-4); Lymphocytes # 1.7 K/mcL (0.6-4.6); Lymphocytes % 15.1 %; Mean Corpuscular HGB Conc 30.9 g/dL (31.6-35.5); Mean Corpuscular Hemoglobin 27.6 pg (28.0-33.3); Mean Corpuscular Volume 89.2 fL (83.0-100.0); Mean Platelet Volume 10.4 fL (9.4-12.4); Monocytes # 0.7 K/mcL (0.0-1.3); Monocytes % 5.8 %; Neutrophils # 8.3 K/mcL (1.6-8.9); Platelet Count 315 K/mcL (140-400); Red Cell Distribution Width 17.9 % (11.5-14.5); Segmented Neutrophils % 73.9 %
[2018-05-26 04:59] LABS: BUN/Creatinine Ratio 26 (6-26); Blood Urea Nitrogen 23 mg/dL (8-23); Calcium 7.6 mg/dL (8.6-10.3); Carbon Dioxide 19 mEq/L (23-29); Chloride 108 mEq/L (98-107); Glucose 148 mg/dL (70-105); Magnesium 1.7 mg/dL (1.6-2.6); Osmolality,Calculated 288 (280-300); Phosphorous 3.2 mg/dL (2.7-4.5); Potassium 4.2 mEq/L (3.5-5.1); Sodium 136 mEq/L (136-145); eGFR For Non-African Americans > 60 (> 60)
[2018-05-26] MEDS: *HR* Heparin 5,000 UNIT/ML VIAL SQ SCH ×2 (05:13→17:24)
[2018-05-26] MEDS: Norepinephrine 4 MG in D5% in Water 250 ML IVC SCH ×2 (05:15→21:40)
[2018-05-26 05:16] LABS: Anisocytosis 1+ (Not Present); Large Platelets Present (Not Present); Platelet Estimate Normal (Normal)
[2018-05-26 05:26] LABS: ABG Base Excess -3 mEq/L (-2 to 3); ABG HCO3 22 mEq/L (21-27); ABG Oxygen Saturation 98 % (95-98); ABG PCO2 38 mmHg (35-45); ABG PH 7.37 pH Units (7.32-7.45); ABG PO2 107 mmHg (85-104); ABG TCO2 23 mEq/L (20-26); Blood Gas Modality PRVC; Blood Gas PEEP 5 cm H2O; Blood Gas Respiration Rate 18; Blood Gas VT 450 cc
--- NOTE | 2018-05-26 07:40 | Pulmonology Progress Note ---
<Carmelo Pope W - Last Filed: 05/26/18 12:28> Date of Encounter: 05/26/18 Assessment and Plan (1) Acute respiratory failure with hypoxia Current Visit: Yes Status: Acute (2) Delirium Current Visit: No Status: Acute (3) Healthcare-associated pneumonia Current Visit: Yes Status: Acute (4) Septic shock Current Visit: Yes Status: Acute (5) Dementia Current Visit: No Status: Chronic Qualifiers: Dementia type: unspecified type Dementia behavioral disturbance: with behavioral disturbance Qualified Code(s): F03.91 - Unspecified dementia with behavioral disturbance (6) DVT prophylaxis Current Visit: No Status: Acute Objective PUL Vital signs: Last Vital Signs Temp 99.7 F H 05/26/18 07:15 Pulse 91 05/26/18 07:30 Resp 24 05/26/18 07:50 BP 107/68 05/26/18 07:30 Pulse Ox 92 05/26/18 07:50 Ventilator Settings Ventilator Settings: Ventilator Settings, Last 8 Hours Ventilator Tidal Volume 450 Setting Ventilator Tidal Volume 450 Setting Ventilator Tidal Volume 450 Setting Ventilator Tidal Volume 450 Setting Ventilator Tidal Volume 450 Setting Ventilator Tidal Volume 450 Setting Ventilator Tidal Volume 450 Setting Ventilator Respiratory Rate 18 Setting Ventilator Respiratory Rate 18 Setting Ventilator Respiratory Rate 18 Setting Ventilator Respiratory Rate 18 Setting Ventilator Respiratory Rate 18 Setting Ventilator Respiratory Rate 18 Setting Ventilator Respiratory Rate 18 Setting Actual Respiratory Rate 23 Actual Respiratory Rate 22 Actual Respiratory Rate 21 Actual Respiratory Rate 24 Actual Respiratory Rate 22 Actual Respiratory Rate 20 Positive End Expiratory 5 Pressure Positive End Expiratory 5 Pressure Positive End Expiratory 5 Pressure Positive End Expiratory 5 Pressure Positive End Expiratory 5 Pressure Positive End Expiratory 5 Pressure Positive End Expiratory 5 Pressure Peak Inspiratory Airway 11 Pressure Peak Inspiratory Airway 9 Pressure Peak Inspiratory Airway 8.7 Pressure Peak Inspiratory Airway 8 Pressure Peak Inspiratory Airway 12 Pressure Peak Inspiratory Airway 9.4 Pressure Results - Laboratory Findings CBC and BMP: 05/26/18 04:20 05/26/18 04:20 ABG ABG pH 7.37 pH Units (7.32-7.45) 05/26/18 05:23 ABG pCO2 38 mmHg (35-45) 05/26/18 05:23 ABG pO2 107 mmHg (85-104) H 05/26/18 05:23 ABG O2 Saturation 98 % (95-98) 05/26/18 05:23 PT/INR, D-dimer PT 18.8 Seconds (9.4-12.1) H 05/14/18 06:51 Abnormal lab findings: Abnormal lab results WBC 11.2 K/mcL (4.3-11.1) H 05/26/18 04:20 RBC 2.50 M/mcL (3.82-4.97) L 05/26/18 04:20 Hgb 6.9 g/dL (11.5-15.4) L 05/26/18 04:20 Hct 22.3 % (35.3-44.9) L 05/26/18 04:20 MCH 27.6 pg (28.0-33.3) L 05/26/18 04:20 MCHC 30.9 g/dL (31.6-35.5) L 05/26/18 04:20 RDW 17.9 % (11.5-14.5) H 05/26/18 04:20 Band Neutrophils % 10.0 % (0-4) H 05/14/18 06:57 Nucleated RBCs/100 WBC 0.1 /100 WBC (0) H 05/18/18 03:15 Toxic Granulation Present (Not Present) A 05/16/18 03:00 Toxic Vacuolation Present (Not Present) A 05/15/18 03:15 Large Platelets Present (Not Present) A 05/26/18 04:20 Polychromasia 1+ (Not Present) A 05/14/18 03:26 Hypochromasia Present (Not Present) A 05/17/18 03:15 Poikilocytosis 1+ (Not Present) A 05/16/18 03:00 Anisocytosis 1+ (Not Present) A 05/26/18 04:20 Macrocytosis Present (Not Present) A 05/17/18 03:15 PT 18.8 Seconds (9.4-12.1) H 05/14/18 06:51 APTT 22.5 Seconds (26.0-36.0) L 05/14/18 06:51 ABG pO2 107 mmHg (85-104) H 05/26/18 05:23 ABG Base Excess -3 mEq/L (-2 to 3) L 05/26/18 05:23 Chloride 108 mEq/L (98-107) H 05/26/18 04:20 Carbon Dioxide 19 mEq/L (23-29) L 05/26/18 04:20 Glucose 148 mg/dL (70-105) H 05/26/18 04:20 POC Glucose 121 mg/dL (70-99) H 05/26/18 07:07 Lactic Acid 3.6 mmol/L (0.5-2.2) H 05/14/18 20:40 Calcium 7.6 mg/dL (8.6-10.3) L 05/26/18 04:20 Direct Bilirubin 0.3 mg/dL (0.0-0.2) H 05/14/18 02:57 AST 43 Units/L (13-39) H 05/14/18 06:57 Troponin I 0.07 ng/mL (< 0.04) H* 05/14/18 06:57 Serum Total Protein 5.6 g/dL (6.4-8.9) L 05/14/18 06:57 Albumin 2.4 g/dL (3.5-5.7) L 05/14/18 06:57 Albumin/Globulin Ratio 0.8 (1.1-2.2) L 05/14/18 06:57 Urine Clarity Cloudy (Clear) A 05/14/18 02:06 Urine Protein 30 mg/dL (Neg-Trace) H 05/14/18 02:06 Urine Bilirubin Small (Negative) H 05/14/18 02:06 Ur Leukocyte Esterase Large (Negative) H 05/14/18 02:06 Urine Microscopic RBC 3-5 per hpf (0-3) H 05/14/18 02:06 Urine Microscopic WBC 15-30 per hpf (0-3) H 05/14/18 02:06 Ur Squamous Epith Cells Moderate per lpf (None-Few) H 05/14/18 02:06 Urine Bacteria Moderate per hpf (None-Few) H 05/14/18 02:06 Ur Culture Indicated? YES (NO) A 05/14/18 02:06 Vancomycin Trough 16 mcg/mL (5-10) H 05/25/18 07:40 - Microbiology Findings Microbiology Findings: Microbiology, Last 48 Hours 05/24/18 14:10 Sputum Culture - Preliminary Sputum 05/24/18 14:10 Urine Culture - Preliminary Urine,[place] Yeast Species 05/24/18 12:51 Blood Culture - Preliminary Peripheral Venipuncture Culture is incubating and being continuously monitored for growth. Final report to follow. 05/24/18 12:51 Blood Culture - Preliminary Peripheral Venipuncture Culture is incubating and being continuously monitored for growth. Final report to follow. - Clinical Findings Intake & Output: Intake & Output 05/25/18 05/26/18 05/26/18 23:59 07:59 15:59 Intake Total 2016 427 / 427 Output Total 875 / 875 2350 / 2350 Balance 1142 / 1142 -1923 / -1923 Consult Discharge Plan - Plan Referrals: Albertina Huerta MD [Primary Care Provider] - - Attending Attestation I examined this patient and my medical decision-making was reviewed with the Resident Physician. I agree with the documented findings, disposition and treatment plan as described except to the extent set forth below. We independently had [id number] contact with the patient Patient seen and examined at bedside Labs, radiology, chart personally reviewed. Management was reviewed during multidisciplinary critical care rounds. ALIGNMENT SPECIALIST: Remains delirious requiring infusions of sedatives CT had repeated yesterday was without focal process I suspect this represents terminal delirium spontaneous awake trial today demonstrated the patient is able to squeeze her eyelids to avoid opening her eyes she does not have any consistent following of commands she is still exhibiting hyperactive delirium. Continues daily spontaneous awake trial and decreased sedation as much as possible to keep goal Isreal 2-3 also we have increased dose of atypical at this exotic effort to mitigate the features of hyperactive delirium. Pulm: Hypoxic respiratory failure on vent no spontaneous breathing trial today because of failure spontaneous awake trial we will reassess tomorrow. In general she has minimal vent settings and acceptable gas exchange rate limiting step to successful liberation will be her mental status. Cards: She is on low dose of vasopressor because of the hypotension associated with sedative this is being weaned down there is no other evidence of shock physiology GI: She is status post Torrez's procedure ostomy is functioning Nutrition: She is receiving TPN while intubated we will discuss with nutrition about the possibility of switching to enteral nutrition as opposed to TPN Renal: UOP Monitored, Cont to Trend sCr and monitor Electrolytes. ID: She is being treated for MRSA and Klebsiella pneumonia we will treat for MRSA pneumonia for 14 days with stop treatment for Klebsiella white count is stable Heme/Onc: Continue DVT prophylaxis hemoglobin today less than 7 which is been a very slow trend downward since ICU status is likely related to critical illness and frequent blood draws no overt evidence of hemorrhage transfuse 2 units today and packed red blood cells for goal hemoglobin greater than 7 Endo: Glucose Monitored Integ/MSK: Skin Care per routine ICU Nursing Protocol to prevent ulcers. Lines: All lines examined without evidence of infection : Dispo: Remain in ICU for ventilator management CODE: Patient remains full code extensive conversations between myself and the palliative care team with the patient's healthcare proxy her daughter Leanna has undergone plan is for her sister to come in and out of town on Wednesday for additional discussions at this time they want to continue to pursue aggressive treatment. Patient's overall prognosis remains at best guarded and likely poor. <Dimitrios Fleming N - Last Filed: 05/26/18 16:46> Date of Encounter: 05/26/18 Time of Encounter: 07:39 Assessment and Plan (1) Acute respiratory failure with hypoxia Current Visit: Yes Status: Acute Patient remains on mechanical ventilation. She is having adequate oxygen saturation, but at this time is not a candidate for CPAP trial due to prior need for reintubation and severely altered mental status. Acute respiratory failure is likely secondary to possible HCAP. She is no longer in septic shock, but has required vasopressors due to hypertension from sedation. (2) Healthcare-associated pneumonia Current Visit: Yes Status: Acute White blood cell count is stable Sputum cultures grew MRSA and Klebsiella Currently being treated with vancomycin and Zosyn Continue antibiotic therapy (3) Septic shock Current Visit: Yes Status: Acute Patient is normotensive when not on sedation. However she has required vasopressors over the past few days because of sedation needs. (4) Delirium Current Visit: No Status: Acute Patient has a history of dementia, but she appears highly agitated and confused. Therefore there may be superimposed delirium as well. Restarted patient's Seroquel and she is also on her Aricept at this time. (5) DVT prophylaxis Current Visit: No Status: Acute Continue heparin She has had a decline in her hemoglobin and will be transfused today as she is at a hemoglobin of 6.9. Consider SCDs. (6) Anemia Current Visit: No Status: Acute Patient has had a slow decline in her hemoglobin, this morning it was below 7. She will be transfused 2 units packed red blood cells No micro-cytosis Qualifiers: Anemia type: unspecified type Qualified Code(s): D64.9 - Anemia, unspecified Subjective Principal diagnosis: Dehydration, sepsis, pneumonia Interval history: Patient seen and examined at bedside this morning with the attending present. She remains ventilator dependent and continues to be highly agitated even with the increase of seroquel yesterday. She appears to have nonpurposeful movements of all 4 extremities. She has had a slow gradual decrease of her hemoglobin over the past week. Her hemoglobin dropped below 7 today, she will receive 2 units packed red blood cells. Palliative is now following and discussing with family regarding goals of care, patient at this time remains full code. Objective PUL Vital signs: Last Vital Signs Temp 99.9 F H 05/26/18 04:00 Pulse 91 05/26/18 06:00 Resp 22 05/26/18 06:00 BP 132/73 05/26/18 06:00 Pulse Ox 100 05/26/18 06:00 General appearance: agitated Auscultation: bilateral: rhonchi Cardiovascular: regular rate and rhythm Gastrointestinal: normoactive bowel sounds, soft, non-tender, other (Colostomy in place) Extremities: no cyanosis, edema Ventilator Settings Ventilator Settings: Ventilator Settings, Last 8 Hours Ventilator Tidal Volume 450 Setting Ventilator Tidal Volume 450 Setting Ventilator Tidal Volume 450 Setting Ventilator Tidal Volume 450 Setting Ventilator Tidal Volume 450 Setting Ventilator Tidal Volume 450 Setting Ventilator Respiratory Rate 18 Setting Ventilator Respiratory Rate 18 Setting Ventilator Respiratory Rate 18 Setting Ventilator Respiratory Rate 18 Setting Ventilator Respiratory Rate 18 Setting Ventilator Respiratory Rate 18 Setting Actual Respiratory Rate 21 Actual Respiratory Rate 24 Actual Respiratory Rate 22 Actual Respiratory Rate 20 Actual Respiratory Rate 21 Positive End Expiratory 5 Pressure Positive End Expiratory 5 Pressure Positive End Expiratory 5 Pressure Positive End Expiratory 5 Pressure Positive End Expiratory 5 Pressure Positive End Expiratory 5 Pressure Peak Inspiratory Airway 8.7 Pressure Peak Inspiratory Airway 8 Pressure Peak Inspiratory Airway 12 Pressure Peak Inspiratory Airway 9.4 Pressure Peak Inspiratory Airway 10 Pressure Results - Laboratory Findings CBC and BMP: 05/26/18 04:20 05/26/18 04:20 ABG ABG pH 7.37 pH Units (7.32-7.45) 05/26/18 05:23 ABG pCO2 38 mmHg (35-45) 05/26/18 05:23 ABG pO2 107 mmHg (85-104) H 05/26/18 05:23 ABG O2 Saturation 98 % (95-98) 05/26/18 05:23 PT/INR, D-dimer PT 18.8 Seconds (9.4-12.1) H 05/14/18 06:51 Abnormal lab findings: Abnormal lab results WBC 11.2 K/mcL (4.3-11.1) H 05/26/18 04:20 RBC 2.50 M/mcL (3.82-4.97) L 05/26/18 04:20 Hgb 6.9 g/dL (11.5-15.4) L 05/26/18 04:20 Hct 22.3 % (35.3-44.9) L 05/26/18 04:20 MCH 27.6 pg (28.0-33.3) L 05/26/18 04:20 MCHC 30.9 g/dL (31.6-35.5) L 05/26/18 04:20 RDW 17.9 % (11.5-14.5) H 05/26/18 04:20 Band Neutrophils % 10.0 % (0-4) H 05/14/18 06:57 Nucleated RBCs/100 WBC 0.1 /100 WBC (0) H 05/18/18 03:15 Toxic Granulation Present (Not Present) A 05/16/18 03:00 Toxic Vacuolation Present (Not Present) A 05/15/18 03:15 Large Platelets Present (Not Present) A 05/26/18 04:20 Polychromasia 1+ (Not Present) A 05/14/18 03:26 Hypochromasia Present (Not Present) A 05/17/18 03:15 Poikilocytosis 1+ (Not Present) A 05/16/18 03:00 Anisocytosis 1+ (Not Present) A 05/26/18 04:20 Macrocytosis Present (Not Present) A 05/17/18 03:15 PT 18.8 Seconds (9.4-12.1) H 05/14/18 06:51 APTT 22.5 Seconds (26.0-36.0) L 05/14/18 06:51 ABG pO2 107 mmHg (85-104) H 05/26/18 05:23 ABG Base Excess -3 mEq/L (-2 to 3) L 05/26/18 05:23 Chloride 108 mEq/L (98-107) H 05/26/18 04:20 Carbon Dioxide 19 mEq/L (23-29) L 05/26/18 04:20 Glucose 148 mg/dL (70-105) H 05/26/18 04:20 POC Glucose 121 mg/dL (70-99) H 05/26/18 07:07 Lactic Acid 3.6 mmol/L (0.5-2.2) H 05/14/18 20:40 Calcium 7.6 mg/dL (8.6-10.3) L 05/26/18 04:20 Direct Bilirubin 0.3 mg/dL (0.0-0.2) H 05/14/18 02:57 AST 43 Units/L (13-39) H 05/14/18 06:57 Troponin I 0.07 ng/mL (< 0.04) H* 05/14/18 06:57 Serum Total Protein 5.6 g/dL (6.4-8.9) L 05/14/18 06:57 Albumin 2.4 g/dL (3.5-5.7) L 05/14/18 06:57 Albumin/Globulin Ratio 0.8 (1.1-2.2) L 05/14/18 06:57 Urine Clarity Cloudy (Clear) A 05/14/18 02:06 Urine Protein 30 mg/dL (Neg-Trace) H 05/14/18 02:06 Urine Bilirubin Small (Negative) H 05/14/18 02:06 Ur Leukocyte Esterase Large (Negative) H 05/14/18 02:06 Urine Microscopic RBC 3-5 per hpf (0-3) H 05/14/18 02:06 Urine Microscopic WBC 15-30 per hpf (0-3) H 05/14/18 02:06 Ur Squamous Epith Cells Moderate per lpf (None-Few) H 05/14/18 02:06 Urine Bacteria Moderate per hpf (None-Few) H 05/14/18 02:06 Ur Culture Indicated? YES (NO) A 05/14/18 02:06 Vancomycin Trough 16 mcg/mL (5-10) H 05/25/18 07:40 - Microbiology Findings Microbiology Findings: Microbiology, Last 48 Hours 05/24/18 14:10 Sputum Culture - Preliminary Sputum 05/24/18 14:10 Urine Culture - Preliminary Urine,[place] Yeast Species 05/24/18 12:51 Blood Culture - Preliminary Peripheral Venipuncture Culture is incubating and being continuously monitored for growth. Final report to follow. 05/24/18 12:51 Blood Culture - Preliminary Peripheral Venipuncture Culture is incubating and being continuously monitored for growth. Final report to follow. - Clinical Findings Intake & Output: Intake & Output 05/25/18 05/25/18 05/26/18 15:59 23:59 07:59 Intake Total 920 / 920 2016 / 2016 427 / 427 Output Total 600 / 600 875 / 875 1450 / 1450 Balance 320 / 320 1142 / 1142 -1023 / -1023 - VTE Documentation of Mechanical Device: Intermittent pneumatic compression device
[2018-05-26] MEDS: FentaNYL (PF) 1,000 MCG in 0.9 % Sodium Chloride 80 ML IVC SCH ×2 (08:30→21:42)
[2018-05-26] MEDS: Chlorhexidine Rinse 15 ML MOUTHWASH MM SCH ×2 (08:53→21:40)
[2018-05-26] MEDS: Levothyroxine Sodium 100 MCG VIAL IVP SCH (08:54)
[2018-05-26] MEDS: Pantoprazole 40 MG VIAL IVP SCH (08:55)
[2018-05-26] MEDS ORDERED: 0.9 % Sodium Chloride 250 ML ONE (13:58)
[2018-05-26] MEDS ORDERED: Furosemide 40 MG/4 ML VIAL ONE (17:01)
[2018-05-26] MEDS ORDERED: Furosemide 40 MG/4 ML VIAL IVP ONE (17:09)
[2018-05-26] MEDS: Vasopressin 40 UNIT in D5% in Water 100 ML IV SCH (21:29)
[2018-05-26] MEDS: Phenylephrine 10 MG in D5% in Water 250 ML IVC SCH ×2 (21:29→21:58)
[2018-05-27] MEDS: Lacri-Lube 3.5 GM TUBE BOTH EYES SCH ×7 (00:08→23:52)
[2018-05-27] MEDS: Vasopressin 40 UNIT in D5% in Water 100 ML IV SCH ×2 (00:09→21:44)
[2018-05-27] MEDS: Ipratropium/Albuterol Neb 3 ML IH SCH ×5 (04:10→19:50)
[2018-05-27 05:16] LABS: Basophils # 0.1 K/mcL (0.0-0.2); Basophils % 0.7 %; Eosinophils # 0.3 K/mcL (0.0-0.6); Eosinophils % 3.1 %; Hematocrit 27.9 % (35.3-44.9); Immature Granulocytes % 1.8 % (0-4); Lymphocytes % 20.3 %; Mean Corpuscular HGB Conc 32.6 g/dL (31.6-35.5); Mean Corpuscular Hemoglobin 28.7 pg (28.0-33.3); Mean Platelet Volume 10.8 fL (9.4-12.4); Monocytes # 0.7 K/mcL (0.0-1.3); Monocytes % 7.4 %; Neutrophils # 6.7 K/mcL (1.6-8.9); Platelet Count 291 K/mcL (140-400); Red Blood Count 3.17 M/mcL (3.82-4.97); Segmented Neutrophils % 66.7 %
[2018-05-27] MEDS: Dexmedetomidine HCl 400 MCG/100 ML MLS IVC SCH ×3 (05:21→19:36)
[2018-05-27] MEDS: *HR* Heparin 5,000 UNIT/ML VIAL SQ SCH (05:22)
[2018-05-27 05:27] LABS: Hemoglobin 9.1 g/dL (11.5-15.4)
[2018-05-27 05:32] LABS: Magnesium 1.6 mg/dL (1.6-2.6); Phosphorous 3.4 mg/dL (2.7-4.5)
[2018-05-27 05:33] LABS: BUN/Creatinine Ratio 22 (6-26); Blood Urea Nitrogen 19 mg/dL (8-23); Carbon Dioxide 23 mEq/L (23-29); Chloride 107 mEq/L (98-107); Glucose 134 mg/dL (70-105); Osmolality,Calculated 284 (280-300); Potassium 3.9 mEq/L (3.5-5.1); Sodium 135 mEq/L (136-145); eGFR For Non-African Americans > 60 (> 60)
[2018-05-27 05:52] LABS: VBG Ionized Calcium 1.07 mmol/L (1.15-1.35)
[2018-05-27] MEDS: Potassium Chloride 40 MEQ/200 ML BAG IVPB PRN (06:05)
[2018-05-27] MEDS: FentaNYL (PF) 1,000 MCG in 0.9 % Sodium Chloride 80 ML IVC SCH (06:12)
[2018-05-27] MEDS ORDERED: Furosemide 40 MG/4 ML VIAL IVP ONE (08:04)
--- NOTE | 2018-05-27 08:19 | Pulmonology Progress Note ---
Date of Encounter: 05/27/18 Time of Encounter: 08:18 Assessment and Plan (1) Acute respiratory failure with hypoxia Current Visit: Yes Status: Acute Patient seen and examined at bedside Labs, radiology, chart personally reviewed. Management was reviewed during multidisciplinary critical care rounds. 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 There is no clear indication of a focal neurological deficit suggestive of stroke nor stereotypic behavior or obtundation that can be seen with clinical or subclinical seizures. Head CT x 2 w/o acute process. Continue Propfol fentanyl and Precedex stop seroquel as has not proved to be beneficial in this situation. Goal [place] 2-3 we will decrease sedation incrementally as much as possible Avoidance of sensory deprivation. Pulm: Acute hypoxic respiratory failure requiring mechanical ventilation. Spontaneous Breathing trial planned today which may be significantly complicated by her delirium minimal vent settings today with excellent oxygenation. Continue treatment for pneumonia and bronchodilators along with ventilator bundled prevent VAP Cards: Septic shock has resolved blood pressure has remained hypotensive related to sedation use I suspect with decreasing her sedation this will improve as well urine output remained stable GI: Stress ulcer prophylaxis given Nutrition: TPN per Dietary recs Renal: UOP Monitored, Cont to Trend sCr and monitor Electrolytes. ID: Continue treatment of MRSA and Klebsiella pneumonia WBC has normalized. ABx to stop today. Heme/Onc: DVT prophylaxis given Endo: Glucose Monitored Integ/MSK: Skin Care per routine ICU Nursing Protocol to prevent ulcers. Lines: All lines examined without evidence of infection : Dispo: Remain in ICU for ventilator management CODE: Full code Prognosis guarded. Palliative Care following closely and appreciate their assessment and plan. Family has been updated daily at bedside (2) Delirium Current Visit: No Status: Acute (3) Healthcare-associated pneumonia Current Visit: Yes Status: Acute (4) Septic shock Current Visit: Yes Status: Acute (5) Dementia Current Visit: No Status: Chronic Qualifiers: Dementia type: unspecified type Dementia behavioral disturbance: with behavioral disturbance Qualified Code(s): F03.91 - Unspecified dementia with behavioral disturbance (6) DVT prophylaxis Current Visit: No Status: Acute Subjective Principal diagnosis: Dehydration, sepsis, pneumonia Interval history: Remains exhibiting hyperactive delirium once off sedation. Spontaneous breathing trial after spontaneous awake trial attempted 2 yesterday both complicated by severe agitation requiring re-sedation.. Extensive conversation with the patient's daughter and granddaughter at bedside yesterday with overview his current situation of respiratory failure which is complicated by delirium Objective PUL Vital signs: Last Vital Signs Temp 98.5 F 05/27/18 04:00 Pulse 77 05/27/18 06:00 Resp 18 05/27/18 07:16 BP 109/62 05/27/18 06:00 Pulse Ox 100 05/27/18 07:16 General appearance: other (Sedation was lifted the patient still is unable to consistently follow commands to voice she does have spontaneous opening of her eyes and in general forcefully closes her eyes when I try to examine her. She is noted to move all extremities without focal deficit her pupils are equal round reactive to light) Eyes: nonicteric Auscultation: bilateral: rhonchi Cardiovascular: regular rate and rhythm Gastrointestinal: soft, non-tender, other (Ostomy site pink with stool in the collection bag) Integumentary: other (No new rash or areas of ecchymosis) non-focal exam, pupils equal and round anxious Ventilator Settings Ventilator Settings: Ventilator Settings, Last 8 Hours Ventilator Tidal Volume 450 Setting Ventilator Tidal Volume 450 Setting Ventilator Tidal Volume 450 Setting Ventilator Tidal Volume 450 Setting Ventilator Tidal Volume 450 Setting Ventilator Tidal Volume 450 Setting Ventilator Tidal Volume 450 Setting Ventilator Tidal Volume 450 Setting Ventilator Tidal Volume 450 Setting Ventilator Tidal Volume 450 Setting Ventilator Respiratory Rate 18 Setting Ventilator Respiratory Rate 18 Setting Ventilator Respiratory Rate 18 Setting Ventilator Respiratory Rate 18 Setting Ventilator Respiratory Rate 18 Setting Ventilator Respiratory Rate 18 Setting Ventilator Respiratory Rate 18 Setting Ventilator Respiratory Rate 18 Setting Ventilator Respiratory Rate 18 Setting Ventilator Respiratory Rate 18 Setting Actual Respiratory Rate 18 Actual Respiratory Rate 18 Actual Respiratory Rate 18 Actual Respiratory Rate 18 Actual Respiratory Rate 18 Actual Respiratory Rate 18 Actual Respiratory Rate 20 Actual Respiratory Rate 18 Actual Respiratory Rate 19 Actual Respiratory Rate 18 Positive End Expiratory 5 Pressure Positive End Expiratory 5 Pressure Positive End Expiratory 5 Pressure Positive End Expiratory 5 Pressure Positive End Expiratory 5 Pressure Positive End Expiratory 5 Pressure Positive End Expiratory 5 Pressure Positive End Expiratory 5 Pressure Positive End Expiratory 5 Pressure Positive End Expiratory 5 Pressure Peak Inspiratory Airway 23 Pressure Peak Inspiratory Airway 24 Pressure Peak Inspiratory Airway 21 Pressure Peak Inspiratory Airway 21 Pressure Peak Inspiratory Airway 29 Pressure Peak Inspiratory Airway 24 Pressure Peak Inspiratory Airway 24 Pressure Peak Inspiratory Airway 23 Pressure Peak Inspiratory Airway 25 Pressure Peak Inspiratory Airway 23 Pressure Results - Laboratory Findings CBC and BMP: 05/27/18 04:54 05/27/18 04:54 ABG ABG pH 7.37 pH Units (7.32-7.45) 05/26/18 05:23 ABG pCO2 38 mmHg (35-45) 05/26/18 05:23 ABG pO2 107 mmHg (85-104) H 05/26/18 05:23 ABG O2 Saturation 98 % (95-98) 05/26/18 05:23 PT/INR, D-dimer PT 18.8 Seconds (9.4-12.1) H 05/14/18 06:51 Abnormal lab findings: Abnormal lab results RBC 3.17 M/mcL (3.82-4.97) L 05/27/18 04:54 Hgb 9.1 g/dL (11.5-15.4) L D 05/27/18 04:54 Hct 27.9 % (35.3-44.9) L 05/27/18 04:54 RDW 17.0 % (11.5-14.5) H 05/27/18 04:54 Band Neutrophils % 10.0 % (0-4) H 05/14/18 06:57 Nucleated RBCs/100 WBC 0.1 /100 WBC (0) H 05/18/18 03:15 Toxic Granulation Present (Not Present) A 05/16/18 03:00 Toxic Vacuolation Present (Not Present) A 05/15/18 03:15 Large Platelets Present (Not Present) A 05/26/18 04:20 Polychromasia 1+ (Not Present) A 05/14/18 03:26 Hypochromasia Present (Not Present) A 05/17/18 03:15 Poikilocytosis 1+ (Not Present) A 05/16/18 03:00 Anisocytosis 1+ (Not Present) A 05/26/18 04:20 Macrocytosis Present (Not Present) A 05/17/18 03:15 PT 18.8 Seconds (9.4-12.1) H 05/14/18 06:51 APTT 22.5 Seconds (26.0-36.0) L 05/14/18 06:51 ABG pO2 107 mmHg (85-104) H 05/26/18 05:23 ABG Base Excess -3 mEq/L (-2 to 3) L 05/26/18 05:23 Sodium 135 mEq/L (136-145) L 05/27/18 04:54 Glucose 134 mg/dL (70-105) H 05/27/18 04:54 POC Glucose 114 mg/dL (70-99) H 05/27/18 07:13 Lactic Acid 3.6 mmol/L (0.5-2.2) H 05/14/18 20:40 Calcium 8.0 mg/dL (8.6-10.3) L 05/27/18 04:54 Venous Ioniz Calcium 1.07 mmol/L (1.15-1.35) L 05/27/18 05:39 Direct Bilirubin 0.3 mg/dL (0.0-0.2) H 05/14/18 02:57 AST 43 Units/L (13-39) H 05/14/18 06:57 Troponin I 0.07 ng/mL (< 0.04) H* 05/14/18 06:57 Serum Total Protein 5.6 g/dL (6.4-8.9) L 05/14/18 06:57 Albumin 2.4 g/dL (3.5-5.7) L 05/14/18 06:57 Albumin/Globulin Ratio 0.8 (1.1-2.2) L 05/14/18 06:57 Urine Clarity Cloudy (Clear) A 05/14/18 02:06 Urine Protein 30 mg/dL (Neg-Trace) H 05/14/18 02:06 Urine Bilirubin Small (Negative) H 05/14/18 02:06 Ur Leukocyte Esterase Large (Negative) H 05/14/18 02:06 Urine Microscopic RBC 3-5 per hpf (0-3) H 05/14/18 02:06 Urine Microscopic WBC 15-30 per hpf (0-3) H 05/14/18 02:06 Ur Squamous Epith Cells Moderate per lpf (None-Few) H 05/14/18 02:06 Urine Bacteria Moderate per hpf (None-Few) H 05/14/18 02:06 Ur Culture Indicated? YES (NO) A 05/14/18 02:06 Vancomycin Trough 16 mcg/mL (5-10) H 05/25/18 07:40 - Microbiology Findings Microbiology Findings: Microbiology, Last 48 Hours 05/24/18 14:10 Sputum Culture - Preliminary Sputum 05/24/18 14:10 Urine Culture - Preliminary Urine,[place] Yeast Species - Clinical Findings Intake & Output: Intake & Output 05/26/18 05/27/18 05/27/18 23:59 07:59 15:59 Intake Total 3026 / 3026 602 / 602 Output Total 2150 / 2150 1400 / 1400 Balance 876 / 876 -798 / -798 Weight 84.2 kg - VTE Documentation of Mechanical Device: Intermittent pneumatic compression device Consult Discharge Plan - Plan Referrals: Albertina Huerta MD [Primary Care Provider] -
--- NOTE | 2018-05-27 08:41 | Pulmonology Progress Note ---
Date of Encounter: 05/27/18 Time of Encounter: 08:41 Assessment and Plan (1) Acute respiratory failure with hypoxia Current Visit: Yes Status: Acute Patient seen and examined at bedside Labs, radiology, chart personally reviewed. Management was reviewed during multidisciplinary critical care rounds. 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 There is no clear indication of a focal neurological deficit suggestive of stroke nor stereotypic behavior or obtundation that can be seen with clinical or subclinical seizures. Stop propfol today Continue fentanyl and Precedex increase dose of seroquel. Avoidance of sensory deprivation. Pulm: Acute hypoxic respiratory failure requiring mechanical ventilation. Acceptable gas exchange today on minimal vent requirements using of low tidal volume ventilatory strategy not a candidate for Spontaneous Breathing trial because of her encephalopathy minimal vent settings today with excellent oxygenation. Continue treatment for pneumonia and bronchodilators along with ventilator bundled prevent VAP Cards: Septic shock has resolved blood pressure has remained hypotensive related to sedation use I suspect with decreasing her sedation this will improve as well urine output remained stable GI: Stress ulcer prophylaxis given Nutrition: TPN per Dietary recs Renal: UOP Monitored, Cont to Trend sCr and monitor Electrolytes. ID: Continue treatment of MRSA and Klebsiella pneumonia repeat sputum was without bacteria white count has trended down I would continue current treatment Heme/Onc: DVT prophylaxis given Endo: Glucose Monitored Integ/MSK: Skin Care per routine ICU Nursing Protocol to prevent ulcers. Lines: All lines examined without evidence of infection : Dispo: Remain in ICU for ventilator management CODE: Full code Prognosis guarded. Palliative Care following closely and appreciate their assessment and plan (2) Delirium Current Visit: No Status: Acute (3) Healthcare-associated pneumonia Current Visit: Yes Status: Acute (4) Septic shock Current Visit: Yes Status: Acute (5) Dementia Current Visit: No Status: Chronic Qualifiers: Dementia type: unspecified type Dementia behavioral disturbance: with behavioral disturbance Qualified Code(s): F03.91 - Unspecified dementia with behavioral disturbance (6) DVT prophylaxis Current Visit: No Status: Acute Subjective Principal diagnosis: Dehydration, sepsis, pneumonia Interval history: Over last 24 hours patient has demonstrated hyperactive delirium requiring increase in sedation she is now on 3 infusions of sedative including fentanyl Precedex and propofol this is caused hypotension and thus low-dose infusion of vasopressor was started. She has no other signs of worsening sepsis that would be complicating this picture I was able to go in the room today and actually stopped the propofol and cut the rest of the sedation and half she is agitated but does have more response for example she is able to raise her eyebrows to my voice command and I can get her to spontaneously move all extremities occasionally to my voice command. She remains afebrile white count trending down Objective PUL Vital signs: Last Vital Signs Temp 98.5 F 05/27/18 04:00 Pulse 77 05/27/18 06:00 Resp 18 05/27/18 07:16 BP 109/62 05/27/18 06:00 Pulse Ox 100 05/27/18 07:16 Ventilator Settings Ventilator Settings: Ventilator Settings, Last 8 Hours Ventilator Tidal Volume 450 Setting Ventilator Tidal Volume 450 Setting Ventilator Tidal Volume 450 Setting Ventilator Tidal Volume 450 Setting Ventilator Tidal Volume 450 Setting Ventilator Tidal Volume 450 Setting Ventilator Tidal Volume 450 Setting Ventilator Tidal Volume 450 Setting Ventilator Tidal Volume 450 Setting Ventilator Tidal Volume 450 Setting Ventilator Respiratory Rate 18 Setting Ventilator Respiratory Rate 18 Setting Ventilator Respiratory Rate 18 Setting Ventilator Respiratory Rate 18 Setting Ventilator Respiratory Rate 18 Setting Ventilator Respiratory Rate 18 Setting Ventilator Respiratory Rate 18 Setting Ventilator Respiratory Rate 18 Setting Ventilator Respiratory Rate 18 Setting Ventilator Respiratory Rate 18 Setting Actual Respiratory Rate 18 Actual Respiratory Rate 18 Actual Respiratory Rate 18 Actual Respiratory Rate 18 Actual Respiratory Rate 18 Actual Respiratory Rate 18 Actual Respiratory Rate 20 Actual Respiratory Rate 18 Actual Respiratory Rate 19 Actual Respiratory Rate 18 Positive End Expiratory 5 Pressure Positive End Expiratory 5 Pressure Positive End Expiratory 5 Pressure Positive End Expiratory 5 Pressure Positive End Expiratory 5 Pressure Positive End Expiratory 5 Pressure Positive End Expiratory 5 Pressure Positive End Expiratory 5 Pressure Positive End Expiratory 5 Pressure Positive End Expiratory 5 Pressure Peak Inspiratory Airway 23 Pressure Peak Inspiratory Airway 24 Pressure Peak Inspiratory Airway 21 Pressure Peak Inspiratory Airway 21 Pressure Peak Inspiratory Airway 29 Pressure Peak Inspiratory Airway 24 Pressure Peak Inspiratory Airway 24 Pressure Peak Inspiratory Airway 23 Pressure Peak Inspiratory Airway 25 Pressure Peak Inspiratory Airway 23 Pressure Results - Laboratory Findings CBC and BMP: 05/27/18 04:54 05/27/18 04:54 ABG ABG pH 7.37 pH Units (7.32-7.45) 05/26/18 05:23 ABG pCO2 38 mmHg (35-45) 05/26/18 05:23 ABG pO2 107 mmHg (85-104) H 05/26/18 05:23 ABG O2 Saturation 98 % (95-98) 05/26/18 05:23 PT/INR, D-dimer PT 18.8 Seconds (9.4-12.1) H 05/14/18 06:51 Abnormal lab findings: Abnormal lab results RBC 3.17 M/mcL (3.82-4.97) L 05/27/18 04:54 Hgb 9.1 g/dL (11.5-15.4) L D 05/27/18 04:54 Hct 27.9 % (35.3-44.9) L 05/27/18 04:54 RDW 17.0 % (11.5-14.5) H 05/27/18 04:54 Band Neutrophils % 10.0 % (0-4) H 05/14/18 06:57 Nucleated RBCs/100 WBC 0.1 /100 WBC (0) H 05/18/18 03:15 Toxic Granulation Present (Not Present) A 05/16/18 03:00 Toxic Vacuolation Present (Not Present) A 05/15/18 03:15 Large Platelets Present (Not Present) A 05/26/18 04:20 Polychromasia 1+ (Not Present) A 05/14/18 03:26 Hypochromasia Present (Not Present) A 05/17/18 03:15 Poikilocytosis 1+ (Not Present) A 05/16/18 03:00 Anisocytosis 1+ (Not Present) A 05/26/18 04:20 Macrocytosis Present (Not Present) A 05/17/18 03:15 PT 18.8 Seconds (9.4-12.1) H 05/14/18 06:51 APTT 22.5 Seconds (26.0-36.0) L 05/14/18 06:51 ABG pO2 107 mmHg (85-104) H 05/26/18 05:23 ABG Base Excess -3 mEq/L (-2 to 3) L 05/26/18 05:23 Sodium 135 mEq/L (136-145) L 05/27/18 04:54 Glucose 134 mg/dL (70-105) H 05/27/18 04:54 POC Glucose 114 mg/dL (70-99) H 05/27/18 07:13 Lactic Acid 3.6 mmol/L (0.5-2.2) H 05/14/18 20:40 Calcium 8.0 mg/dL (8.6-10.3) L 05/27/18 04:54 Venous Ioniz Calcium 1.07 mmol/L (1.15-1.35) L 05/27/18 05:39 Direct Bilirubin 0.3 mg/dL (0.0-0.2) H 05/14/18 02:57 AST 43 Units/L (13-39) H 05/14/18 06:57 Troponin I 0.07 ng/mL (< 0.04) H* 05/14/18 06:57 Serum Total Protein 5.6 g/dL (6.4-8.9) L 05/14/18 06:57 Albumin 2.4 g/dL (3.5-5.7) L 05/14/18 06:57 Albumin/Globulin Ratio 0.8 (1.1-2.2) L 05/14/18 06:57 Urine Clarity Cloudy (Clear) A 05/14/18 02:06 Urine Protein 30 mg/dL (Neg-Trace) H 05/14/18 02:06 Urine Bilirubin Small (Negative) H 05/14/18 02:06 Ur Leukocyte Esterase Large (Negative) H 05/14/18 02:06 Urine Microscopic RBC 3-5 per hpf (0-3) H 05/14/18 02:06 Urine Microscopic WBC 15-30 per hpf (0-3) H 05/14/18 02:06 Ur Squamous Epith Cells Moderate per lpf (None-Few) H 05/14/18 02:06 Urine Bacteria Moderate per hpf (None-Few) H 05/14/18 02:06 Ur Culture Indicated? YES (NO) A 05/14/18 02:06 Vancomycin Trough 16 mcg/mL (5-10) H 05/25/18 07:40 - Microbiology Findings Microbiology Findings: Microbiology, Last 48 Hours 05/24/18 14:10 Sputum Culture - Preliminary Sputum 05/24/18 14:10 Urine Culture - Preliminary Urine,[place] Yeast Species - Clinical Findings Intake & Output: Intake & Output 05/26/18 05/27/18 05/27/18 23:59 07:59 15:59 Intake Total 3026 / 3026 602 / 602 Output Total 2150 / 2150 1400 / 1400 Balance 876 / 876 -798 / -798 Weight 84.2 kg - VTE Documentation of Mechanical Device: Intermittent pneumatic compression device Consult Discharge Plan - Plan Referrals: Albertina Huerta MD [Primary Care Provider] -
[2018-05-27] MEDS: Levothyroxine Sodium 100 MCG VIAL IVP SCH (09:15)
[2018-05-27] MEDS: Chlorhexidine Rinse 15 ML MOUTHWASH MM SCH ×2 (09:15→19:38)
[2018-05-27] MEDS: Pantoprazole 40 MG VIAL IVP SCH (09:15)
[2018-05-27] MEDS: Norepinephrine 4 MG in D5% in Water 250 ML IVC SCH (09:17)
--- NOTE | 2018-05-27 10:36 | Event Note ---
Date of Encounter: 05/27/18 Time of Encounter: 10:15 Chart review completed. No family present at bedside. ICU team met with family yesterday. Goals of care remain to continue to "wait and see how she does," per Dr. Pope. Palliative care will continue to follow at a distance. No weekend coverage this weekend; follow up on Wednesday.
[2018-05-27] MEDS: *HR* Enoxaparin 80 MG/0.8 ML SYRINGE SQ SCH (18:23)
[2018-05-27] MEDS: Phenylephrine 10 MG in D5% in Water 250 ML IVC SCH (20:20)
[2018-05-28] MEDS: Ipratropium/Albuterol Neb 3 ML IH SCH ×7 (00:09→23:36)
[2018-05-28] MEDS: FentaNYL (PF) 1,000 MCG in 0.9 % Sodium Chloride 80 ML IVC SCH ×2 (00:37→22:16)
[2018-05-28] MEDS ORDERED: Fluconazole 200 MG/100 ML 200 MG/100 ML BAG IVPB ONE (02:50)
[2018-05-28] MEDS: Desitin (Zinc Oxide) 56 GM TUBE TP PRN ×2 (03:11→22:15)
[2018-05-28] MEDS: Lacri-Lube 3.5 GM TUBE BOTH EYES SCH ×5 (03:23→21:22)
[2018-05-28] MEDS: Norepinephrine 4 MG in D5% in Water 250 ML IVC SCH (05:04)
[2018-05-28] MEDS: *HR* Enoxaparin 80 MG/0.8 ML SYRINGE SQ SCH ×2 (05:08→18:50)
[2018-05-28 05:29] LABS: Basophils # 0.1 K/mcL (0.0-0.2); Basophils % 0.6 %; Eosinophils # 0.2 K/mcL (0.0-0.6); Eosinophils % 2.5 %; Hemoglobin 9.9 g/dL (11.5-15.4); Immature Granulocytes % 1.9 % (0-4); Lymphocytes # 1.9 K/mcL (0.6-4.6); Lymphocytes % 22.6 %; Mean Corpuscular HGB Conc 31.9 g/dL (31.6-35.5); Mean Corpuscular Hemoglobin 28.8 pg (28.0-33.3); Mean Corpuscular Volume 90.1 fL (83.0-100.0); Monocytes # 0.7 K/mcL (0.0-1.3); Neutrophils # 5.2 K/mcL (1.6-8.9); Platelet Count 281 K/mcL (140-400); Red Blood Count 3.44 M/mcL (3.82-4.97); Red Cell Distribution Width 17.1 % (11.5-14.5); Segmented Neutrophils % 63.4 %
[2018-05-28 05:31] LABS: VBG Ionized Calcium 1.05 mmol/L (1.15-1.35)
[2018-05-28 05:32] LABS: BUN/Creatinine Ratio 16 (6-26); Blood Urea Nitrogen 16 mg/dL (8-23); Carbon Dioxide 24 mEq/L (23-29); Chloride 103 mEq/L (98-107); Glucose 123 mg/dL (70-105); Osmolality,Calculated 285 (280-300); Potassium 3.7 mEq/L (3.5-5.1); Sodium 136 mEq/L (136-145); eGFR For Non-African Americans 53 (> 60)
[2018-05-28] MEDS: Dexmedetomidine HCl 400 MCG/100 ML MLS IVC SCH ×3 (05:52→23:42)
[2018-05-28] MEDS: Potassium Chloride 40 MEQ/200 ML BAG IVPB PRN (05:53)
[2018-05-28] MEDS ORDERED: Furosemide 40 MG/4 ML VIAL IVP ONE (07:27)
[2018-05-28] MEDS: Pantoprazole 40 MG VIAL IVP SCH (08:13)
[2018-05-28] MEDS: Chlorhexidine Rinse 15 ML MOUTHWASH MM SCH ×2 (08:13→21:22)
[2018-05-28] MEDS: Levothyroxine Sodium 100 MCG VIAL IVP SCH (08:14)
--- NOTE | 2018-05-28 09:52 | Pulmonology Progress Note ---
Date of Encounter: 05/28/18 Time of Encounter: 09:57 Assessment and Plan (1) Acute respiratory failure with hypoxia Current Visit: Yes Status: Acute Patient seen and examined at bedside Labs, radiology, chart personally reviewed. Management was reviewed during multidisciplinary critical care rounds. 77-year-old woman with underlying dementia and maintain on multiple psychotropic medications who presented with respiratory failure and septic shock secondary to multi-pathogen pneumonia including Klebsiella and MRSA requiring intubation mechanical ventilation she was liberated from the ventilator but had to be reintubated on 05/23 she continues to demonstrate marked hyperactive delirium impairing liberation from vent. 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 There is no clear indication of a focal neurological deficit s. Head CT x 2 w/ o acute process. Continue Propfol fentanyl and Precedex stop seroquel as has not proved to be beneficial in this situation. Goal Isreal 2-3 we will decrease sedation incrementally as much as possible Avoidance of sensory deprivation. Liberation from dementia in general terms anticipated to improve her agitation Pulm: Acute hypoxic respiratory failure requiring mechanical ventilation. Spontaneous Breathing trial planned today which may be significantly complicated by her delirium minimal vent settings today with excellent oxygenation. Continue treatment for pneumonia and bronchodilators along with ventilator bundled prevent VAP Cards: Septic shock has resolved blood pressure stable when propfol is D/C'd. Cont Diuresis for Hydrostatic Pulmonary Edema GI: Stress ulcer prophylaxis given Nutrition: Enteral Nutrition per Dietary recs Renal: UOP Monitored, Cont to Trend sCr and monitor Electrolytes. ID: Continue treatment of MRSA and Klebsiella pneumonia WBC has normalized. ABx to stop today. Heme/Onc: DVT prophylaxis given in the form of subcutaneous heparin the patient developed oh lower extremity DVT she is now on therapeutic dose of anoxic. Continue to trend H&H daily no overt evidence of bleeding. Platelet count normal. Endo: Glucose Monitored Integ/MSK: Skin Care per routine ICU Nursing Protocol to prevent ulcers. Lines: All lines examined without evidence of infection : Dispo: Remain in ICU for ventilator management CODE: Full code Prognosis guarded. Palliative Care following closely and appreciate their assessment and plan. Family has been updated daily at bedside on a daily basis with AUTOMOBILE BODY REPAIR SUPERVISOR. Plan for healthcare proxy her daughter Leanna along with granddaughter Shu (RN) and her other adult daughter from [place] for family meeting today I anticipate liberation from the ventilator the question of reintubation will have to be addressed. (2) Delirium Current Visit: No Status: Acute (3) Healthcare-associated pneumonia Current Visit: Yes Status: Acute (4) Septic shock Current Visit: Yes Status: Acute (5) Dementia Current Visit: No Status: Chronic Qualifiers: Dementia type: unspecified type Dementia behavioral disturbance: with behavioral disturbance Qualified Code(s): F03.91 - Unspecified dementia with behavioral disturbance (6) DVT prophylaxis Current Visit: No Status: Acute (7) Acute DVT (deep venous thrombosis) Current Visit: Yes Status: Acute Qualifiers: Laterality: right Qualified Code(s): I82.401 - Acute embolism and thrombosis of unspecified deep veins of right lower extremity Subjective Principal diagnosis: Dehydration, sepsis, pneumonia Interval history: In the last 24 hours patient has been more purposeful but still exhibiting agitated delirium. Developed right lower thrombus and was started on therapeutic enoxaparin. Hemodynamically stable off of propofol Objective PUL Vital signs: Last Vital Signs Temp 99.1 F 05/28/18 07:40 Pulse 110 05/28/18 09:00 Resp 25 05/28/18 09:42 BP 107/71 05/28/18 09:42 Pulse Ox 93 05/28/18 09:42 General appearance: no acute distress Eyes: nonicteric Neck: supple Effort: normal Auscultation: bilateral: diminished breath sounds Cardiovascular: regular rate and rhythm Gastrointestinal: normoactive bowel sounds, soft, non-tender, other (Ostomy pink there is stool in the collection bag) Integumentary: other (The x-rays are bilaterally symmetric there is trace edema there is resolution of the erythema that was noted after initial physical examination of the patient yesterday) Extremities: pink and warm Musculoskeletal: no deformities other (She is able to squeeze my hand bilaterally to command today she still is is exhibiting periods where she attends to get out of bed and reach for the endotracheal tube her pupils are equally round and reactive to light she moves all extremities spontaneously there is no focal weakness) Ventilator Settings Ventilator Settings: Ventilator Settings, Last 8 Hours Ventilator Tidal Volume 450 Setting Ventilator Tidal Volume 450 Setting Ventilator Tidal Volume 450 Setting Ventilator Tidal Volume 450 Setting Ventilator Tidal Volume 450 Setting Ventilator Tidal Volume 450 Setting Ventilator Tidal Volume 450 Setting Ventilator Tidal Volume 450 Setting Ventilator Tidal Volume 450 Setting Ventilator Respiratory Rate 18 Setting Ventilator Respiratory Rate 18 Setting Ventilator Respiratory Rate 18 Setting Ventilator Respiratory Rate 18 Setting Ventilator Respiratory Rate 18 Setting Ventilator Respiratory Rate 18 Setting Ventilator Respiratory Rate 18 Setting Ventilator Respiratory Rate 18 Setting Ventilator Respiratory Rate 18 Setting Actual Respiratory Rate 25 Actual Respiratory Rate 18 Actual Respiratory Rate 18 Actual Respiratory Rate 18 Actual Respiratory Rate 18 Actual Respiratory Rate 18 Actual Respiratory Rate 18 Actual Respiratory Rate 18 Actual Respiratory Rate 18 Actual Respiratory Rate 18 Positive End Expiratory 5 Pressure Positive End Expiratory 5 Pressure Positive End Expiratory 5 Pressure Positive End Expiratory 5 Pressure Positive End Expiratory 5 Pressure Positive End Expiratory 5 Pressure Positive End Expiratory 5 Pressure Positive End Expiratory 5 Pressure Positive End Expiratory 5 Pressure Positive End Expiratory 5 Pressure Peak Inspiratory Airway 11 Pressure Peak Inspiratory Airway 21 Pressure Peak Inspiratory Airway 19 Pressure Peak Inspiratory Airway 22 Pressure Peak Inspiratory Airway 23 Pressure Peak Inspiratory Airway 24 Pressure Peak Inspiratory Airway 27 Pressure Peak Inspiratory Airway 22 Pressure Peak Inspiratory Airway 23 Pressure Peak Inspiratory Airway 27 Pressure Results - Laboratory Findings CBC and BMP: 05/28/18 04:48 05/28/18 04:48 ABG ABG pH 7.37 pH Units (7.32-7.45) 05/26/18 05:23 ABG pCO2 38 mmHg (35-45) 05/26/18 05:23 ABG pO2 107 mmHg (85-104) H 05/26/18 05:23 ABG O2 Saturation 98 % (95-98) 05/26/18 05:23 PT/INR, D-dimer PT 18.8 Seconds (9.4-12.1) H 05/14/18 06:51 Abnormal lab findings: Abnormal lab results RBC 3.44 M/mcL (3.82-4.97) L 05/28/18 04:48 Hgb 9.9 g/dL (11.5-15.4) L 05/28/18 04:48 Hct 31.0 % (35.3-44.9) L 05/28/18 04:48 RDW 17.1 % (11.5-14.5) H 05/28/18 04:48 Band Neutrophils % 10.0 % (0-4) H 05/14/18 06:57 Nucleated RBCs/100 WBC 0.1 /100 WBC (0) H 05/18/18 03:15 Toxic Granulation Present (Not Present) A 05/16/18 03:00 Toxic Vacuolation Present (Not Present) A 05/15/18 03:15 Large Platelets Present (Not Present) A 05/26/18 04:20 Polychromasia 1+ (Not Present) A 05/14/18 03:26 Hypochromasia Present (Not Present) A 05/17/18 03:15 Poikilocytosis 1+ (Not Present) A 05/16/18 03:00 Anisocytosis 1+ (Not Present) A 05/26/18 04:20 Macrocytosis Present (Not Present) A 05/17/18 03:15 PT 18.8 Seconds (9.4-12.1) H 05/14/18 06:51 APTT 22.5 Seconds (26.0-36.0) L 05/14/18 06:51 ABG pO2 107 mmHg (85-104) H 05/26/18 05:23 ABG Base Excess -3 mEq/L (-2 to 3) L 05/26/18 05:23 Est GFR (Non-Af Amer) 53 (> 60) L 05/28/18 04:48 Glucose 123 mg/dL (70-105) H 05/28/18 04:48 POC Glucose 121 mg/dL (70-99) H 05/28/18 07:22 Lactic Acid 3.6 mmol/L (0.5-2.2) H 05/14/18 20:40 Calcium 8.0 mg/dL (8.6-10.3) L 05/28/18 04:48 Venous Ioniz Calcium 1.05 mmol/L (1.15-1.35) L 05/28/18 05:13 Direct Bilirubin 0.3 mg/dL (0.0-0.2) H 05/14/18 02:57 AST 43 Units/L (13-39) H 05/14/18 06:57 Troponin I 0.07 ng/mL (< 0.04) H* 05/14/18 06:57 Serum Total Protein 5.6 g/dL (6.4-8.9) L 05/14/18 06:57 Albumin 2.4 g/dL (3.5-5.7) L 05/14/18 06:57 Albumin/Globulin Ratio 0.8 (1.1-2.2) L 05/14/18 06:57 Urine Clarity Cloudy (Clear) A 05/14/18 02:06 Urine Protein 30 mg/dL (Neg-Trace) H 05/14/18 02:06 Urine Bilirubin Small (Negative) H 05/14/18 02:06 Ur Leukocyte Esterase Large (Negative) H 05/14/18 02:06 Urine Microscopic RBC 3-5 per hpf (0-3) H 05/14/18 02:06 Urine Microscopic WBC 15-30 per hpf (0-3) H 05/14/18 02:06 Ur Squamous Epith Cells Moderate per lpf (None-Few) H 05/14/18 02:06 Urine Bacteria Moderate per hpf (None-Few) H 05/14/18 02:06 Ur Culture Indicated? YES (NO) A 05/14/18 02:06 Vancomycin Trough 16 mcg/mL (5-10) H 05/25/18 07:40 - Microbiology Findings Microbiology Findings: Microbiology, Last 48 Hours 05/24/18 14:10 Sputum Culture - Final Sputum 05/24/18 14:10 Urine Culture - Final Urine,[place] albicans - Clinical Findings Intake & Output: Intake & Output 05/27/18 05/28/18 05/28/18 23:59 07:59 15:59 Intake Total 662 / 662 415 / 415 Output Total 1999 300 / 300 Balance -1338 / -1338 115 / 115 Weight 82.9 kg - VTE Documentation of Mechanical Device: Intermittent pneumatic compression device Consult Discharge Plan - Plan Referrals: Albertina Huerta MD [Primary Care Provider] -
[2018-05-28] MEDS: Phenylephrine 10 MG in D5% in Water 250 ML IVC SCH (23:14)
[2018-05-28] MEDS: Vasopressin 40 UNIT in D5% in Water 100 ML IV SCH (23:15)
[2018-05-28] MEDS: Nystatin POWDER 30 GM BOTTLE TP SCH (23:45)
[2018-05-29] MEDS: Lacri-Lube 3.5 GM TUBE BOTH EYES SCH ×6 (02:58→19:33)
[2018-05-29] MEDS: Ipratropium/Albuterol Neb 3 ML IH SCH ×6 (03:22→23:51)
[2018-05-29 04:52] LABS: Basophils # 0.1 K/mcL (0.0-0.2); Basophils % 0.6 %; Eosinophils # 0.2 K/mcL (0.0-0.6); Eosinophils % 2.1 %; Hematocrit 29.5 % (35.3-44.9); Hemoglobin 9.5 g/dL (11.5-15.4); Immature Granulocytes % 1.4 % (0-4); Lymphocytes # 2.6 K/mcL (0.6-4.6); Lymphocytes % 26.4 %; Mean Corpuscular HGB Conc 32.2 g/dL (31.6-35.5); Mean Corpuscular Hemoglobin 28.9 pg (28.0-33.3); Mean Corpuscular Volume 89.7 fL (83.0-100.0); Mean Platelet Volume 10.6 fL (9.4-12.4); Monocytes # 0.9 K/mcL (0.0-1.3); Monocytes % 9.2 %; Platelet Count 351 K/mcL (140-400); Red Blood Count 3.29 M/mcL (3.82-4.97); Red Cell Distribution Width 17.1 % (11.5-14.5); Segmented Neutrophils % 60.3 %
[2018-05-29 05:12] LABS: BUN/Creatinine Ratio 15 (6-26); Blood Urea Nitrogen 15 mg/dL (8-23); Carbon Dioxide 24 mEq/L (23-29); Chloride 103 mEq/L (98-107); Glucose 137 mg/dL (70-105); Osmolality,Calculated 283 (280-300); Potassium 3.6 mEq/L (3.5-5.1); Sodium 135 mEq/L (136-145); eGFR For Non-African Americans 54 (> 60)
[2018-05-29] MEDS: *HR* Enoxaparin 80 MG/0.8 ML SYRINGE SQ SCH ×2 (06:07→17:22)
--- NOTE | 2018-05-29 06:45 | Pulmonology Progress Note ---
Date of Encounter: 05/29/18 Time of Encounter: 06:45 Assessment and Plan (1) Acute respiratory failure with hypoxia Current Visit: Yes Status: Acute Patient seen and examined at bedside Labs, radiology, chart personally reviewed. Management was reviewed during multidisciplinary critical care rounds. 77-year-old woman with underlying dementia and maintain on multiple psychotropic medications who presented with respiratory failure and septic shock secondary to multi-pathogen pneumonia including Klebsiella and MRSA requiring intubation mechanical ventilation she was liberated from the ventilator but had to be reintubated on 05/23 she continues to demonstrate marked hyperactive delirium impairing liberation from vent. 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 There is no clear indication of a focal neurological deficit s. Head CT x 2 w/ o acute process. Cont Precedex as needed. Goal Daniel 2. Liberation from dementia in general terms anticipated to improve her agitation Pulm: Acute hypoxic respiratory failure requiring mechanical ventilation. Spontaneous Breathing trial planned today which may be significantly complicated by her delirium minimal vent settings today with excellent oxygenation. Continue treatment for pneumonia and bronchodilators along with ventilator bundle to prevent VAP liberation from vent anticipated today after discussion with family Cards: Appears Euvolemic on Exam. Currently no Vasopressor requirement. GI: Stress ulcer prophylaxis given Nutrition: Enteral Nutrition per Dietary recs Renal: UOP Monitored, Cont to Trend sCr and monitor Electrolytes. ID: Treated for MRSA/Klebsiella PNA WBC wnl. Cont to monitor Heme/Onc: DVT prophylaxis given in the form of subcutaneous heparin the patient developed lower extremity DVT she is now on therapeutic dose of Enoxaparin. Stable H/H and Plts. No overt evidence of bleeding. Continue to trend H&H daily no overt evidence of bleeding. Endo: Glucose Monitored Integ/MSK: Skin Care per routine ICU Nursing Protocol to prevent ulcers. Lines: All lines examined without evidence of infection : Dispo: Remain in ICU for ventilator management CODE: Full code Prognosis guarded. Palliative Care following closely and appreciate their assessment and plan. Family has been updated daily at bedside on a daily basis with COAT FITTER. (2) Delirium Current Visit: No Status: Acute (3) Healthcare-associated pneumonia Current Visit: Yes Status: Acute (4) Septic shock Current Visit: Yes Status: Acute (5) Dementia Current Visit: No Status: Chronic Qualifiers: Dementia type: unspecified type Dementia behavioral disturbance: with behavioral disturbance Qualified Code(s): F03.91 - Unspecified dementia with behavioral disturbance (6) DVT prophylaxis Current Visit: No Status: Acute (7) Acute DVT (deep venous thrombosis) Current Visit: Yes Status: Acute Qualifiers: Laterality: right Qualified Code(s): I82.401 - Acute embolism and thrombosis of unspecified deep veins of right lower extremity Subjective Principal diagnosis: Dehydration, sepsis, pneumonia Interval history: Hyperactive delirium continues to improve slowly again she is more purposeful today she is been weaned down to only requiring Precedex. She continues to have occasional thick secretions minimal vent settings at this time. Remains afebrile during periods of agitation she is noted to have increased heart rate and she becomes hypotensive during those times she is intermittently required low-dose infusion of norepinephrine which is currently off Objective PUL Vital signs: Last Vital Signs Temp 97.8 F 05/29/18 04:00 Pulse 74 05/29/18 06:00 Resp 18 05/29/18 06:00 BP 130/74 05/29/18 06:00 Pulse Ox 94 05/29/18 06:00 General appearance: no acute distress, alert Eyes: nonicteric ENT: other (Endotracheal tube noticed in satisfactory position) Neck: supple Effort: normal Auscultation: bilateral: rhonchi Cardiovascular: regular rate and rhythm Gastrointestinal: normoactive bowel sounds, soft, non-tender, other (Ostomy site pink with stool and gas noted in the collection bag) Integumentary: other (No new evidence of rash erythema and purpura or petechiae) non-focal exam, pupils equal and round anxious Ventilator Settings Ventilator Settings: Ventilator Settings, Last 8 Hours Ventilator Tidal Volume 450 Setting Ventilator Tidal Volume 450 Setting Ventilator Tidal Volume 450 Setting Ventilator Tidal Volume 450 Setting Ventilator Tidal Volume 450 Setting Ventilator Tidal Volume 450 Setting Ventilator Tidal Volume 450 Setting Ventilator Tidal Volume 450 Setting Ventilator Respiratory Rate 18 Setting Ventilator Respiratory Rate 18 Setting Ventilator Respiratory Rate 18 Setting Ventilator Respiratory Rate 18 Setting Ventilator Respiratory Rate 18 Setting Ventilator Respiratory Rate 18 Setting Ventilator Respiratory Rate 18 Setting Ventilator Respiratory Rate 18 Setting Actual Respiratory Rate 18 Actual Respiratory Rate 18 Actual Respiratory Rate 18 Actual Respiratory Rate 18 Actual Respiratory Rate 18 Actual Respiratory Rate 18 Actual Respiratory Rate 20 Actual Respiratory Rate 23 Positive End Expiratory 5 Pressure Positive End Expiratory 5 Pressure Positive End Expiratory 5 Pressure Positive End Expiratory 5 Pressure Positive End Expiratory 5 Pressure Positive End Expiratory 5 Pressure Positive End Expiratory 5 Pressure Positive End Expiratory 5 Pressure Peak Inspiratory Airway 22 Pressure Peak Inspiratory Airway 22 Pressure Peak Inspiratory Airway 21 Pressure Peak Inspiratory Airway 20 Pressure Peak Inspiratory Airway 19 Pressure Peak Inspiratory Airway 22 Pressure Peak Inspiratory Airway 26 Pressure Peak Inspiratory Airway 22 Pressure Results - Laboratory Findings CBC and BMP: 05/29/18 04:42 05/29/18 04:42 ABG ABG pH 7.37 pH Units (7.32-7.45) 05/26/18 05:23 ABG pCO2 38 mmHg (35-45) 05/26/18 05:23 ABG pO2 107 mmHg (85-104) H 05/26/18 05:23 ABG O2 Saturation 98 % (95-98) 05/26/18 05:23 PT/INR, D-dimer PT 18.8 Seconds (9.4-12.1) H 05/14/18 06:51 Abnormal lab findings: Abnormal lab results RBC 3.29 M/mcL (3.82-4.97) L 05/29/18 04:42 Hgb 9.5 g/dL (11.5-15.4) L 05/29/18 04:42 Hct 29.5 % (35.3-44.9) L 05/29/18 04:42 RDW 17.1 % (11.5-14.5) H 05/29/18 04:42 Band Neutrophils % 10.0 % (0-4) H 05/14/18 06:57 Nucleated RBCs/100 WBC 0.1 /100 WBC (0) H 05/18/18 03:15 Toxic Granulation Present (Not Present) A 05/16/18 03:00 Toxic Vacuolation Present (Not Present) A 05/15/18 03:15 Large Platelets Present (Not Present) A 05/26/18 04:20 Polychromasia 1+ (Not Present) A 05/14/18 03:26 Hypochromasia Present (Not Present) A 05/17/18 03:15 Poikilocytosis 1+ (Not Present) A 05/16/18 03:00 Anisocytosis 1+ (Not Present) A 05/26/18 04:20 Macrocytosis Present (Not Present) A 05/17/18 03:15 PT 18.8 Seconds (9.4-12.1) H 05/14/18 06:51 APTT 22.5 Seconds (26.0-36.0) L 05/14/18 06:51 ABG pO2 107 mmHg (85-104) H 05/26/18 05:23 ABG Base Excess -3 mEq/L (-2 to 3) L 05/26/18 05:23 Sodium 135 mEq/L (136-145) L 05/29/18 04:42 Est GFR (Non-Af Amer) 54 (> 60) L 05/29/18 04:42 Glucose 137 mg/dL (70-105) H 05/29/18 04:42 POC Glucose 108 mg/dL (70-99) H 05/29/18 00:19 Lactic Acid 3.6 mmol/L (0.5-2.2) H 05/14/18 20:40 Calcium 8.0 mg/dL (8.6-10.3) L 05/29/18 04:42 Venous Ioniz Calcium 1.05 mmol/L (1.15-1.35) L 05/28/18 05:13 Direct Bilirubin 0.3 mg/dL (0.0-0.2) H 05/14/18 02:57 AST 43 Units/L (13-39) H 05/14/18 06:57 Troponin I 0.07 ng/mL (< 0.04) H* 05/14/18 06:57 Serum Total Protein 5.6 g/dL (6.4-8.9) L 05/14/18 06:57 Albumin 2.4 g/dL (3.5-5.7) L 05/14/18 06:57 Albumin/Globulin Ratio 0.8 (1.1-2.2) L 05/14/18 06:57 Urine Clarity Cloudy (Clear) A 05/14/18 02:06 Urine Protein 30 mg/dL (Neg-Trace) H 05/14/18 02:06 Urine Bilirubin Small (Negative) H 05/14/18 02:06 Ur Leukocyte Esterase Large (Negative) H 05/14/18 02:06 Urine Microscopic RBC 3-5 per hpf (0-3) H 05/14/18 02:06 Urine Microscopic WBC 15-30 per hpf (0-3) H 05/14/18 02:06 Ur Squamous Epith Cells Moderate per lpf (None-Few) H 05/14/18 02:06 Urine Bacteria Moderate per hpf (None-Few) H 05/14/18 02:06 Ur Culture Indicated? YES (NO) A 05/14/18 02:06 Vancomycin Trough 16 mcg/mL (5-10) H 05/25/18 07:40 - Microbiology Findings Microbiology Findings: Microbiology, Last 48 Hours 05/24/18 14:10 Sputum Culture - Final Sputum 05/24/18 14:10 Urine Culture - Final Urine,[place] albicans - Clinical Findings Intake & Output: Intake & Output 05/28/18 05/28/18 05/29/18 15:59 23:59 07:59 Intake Total 133 / 133 681 / 681 292 / 292 Output Total 2400 / 2400 375 / 375 125 / 125 Balance -2267 / -2267 306 / 306 167 / 167 - VTE Documentation of Mechanical Device: Intermittent pneumatic compression device Consult Discharge Plan - Plan Referrals: Albertina Huerta MD [Primary Care Provider] -
[2018-05-29] MEDS: Chlorhexidine Rinse 15 ML MOUTHWASH MM SCH ×2 (09:51→19:33)
[2018-05-29] MEDS: Pantoprazole 40 MG VIAL IVP SCH (09:52)
[2018-05-29] MEDS: Levothyroxine Sodium 100 MCG VIAL IVP SCH (09:52)
[2018-05-29] MEDS: Nystatin POWDER 30 GM BOTTLE TP SCH ×3 (09:52→19:34)
[2018-05-29] MEDS: Fluconazole 100 MG/50 ML 100 MG/50 ML BAG IVPB SCH (09:56)
[2018-05-29] MEDS: Dexmedetomidine HCl 400 MCG/100 ML MLS IVC SCH ×2 (11:06→23:00)
[2018-05-29 13:12] LABS: Basophils % 0.4 %; Eosinophils # 0.1 K/mcL (0.0-0.6); Eosinophils % 0.9 %; Hematocrit 29.8 % (35.3-44.9); Hemoglobin 9.7 g/dL (11.5-15.4); Immature Granulocytes % 1.2 % (0-4); Lymphocytes # 1.7 K/mcL (0.6-4.6); Lymphocytes % 18.7 %; Mean Corpuscular HGB Conc 32.6 g/dL (31.6-35.5); Mean Corpuscular Hemoglobin 28.8 pg (28.0-33.3); Mean Corpuscular Volume 88.4 fL (83.0-100.0); Mean Platelet Volume 10.1 fL (9.4-12.4); Monocytes # 0.9 K/mcL (0.0-1.3); Monocytes % 9.6 %; Neutrophils # 6.4 K/mcL (1.6-8.9); Platelet Count 342 K/mcL (140-400); Red Blood Count 3.37 M/mcL (3.82-4.97); Red Cell Distribution Width 16.8 % (11.5-14.5); Segmented Neutrophils % 69.2 %
[2018-05-29] MEDS: Vasopressin 40 UNIT in D5% in Water 100 ML IV SCH (19:34)
[2018-05-29] MEDS: Phenylephrine 10 MG in D5% in Water 250 ML IVC SCH (19:34)
[2018-05-29] MEDS: FentaNYL (PF) 1,000 MCG in 0.9 % Sodium Chloride 80 ML IVC SCH (20:21)
[2018-05-30 03:29] LABS: Basophils # 0.1 K/mcL (0.0-0.2); Basophils % 0.6 %; Eosinophils # 0.2 K/mcL (0.0-0.6); Eosinophils % 1.6 %; Hematocrit 29.6 % (35.3-44.9); Hemoglobin 9.2 g/dL (11.5-15.4); Immature Granulocytes % 1.3 % (0-4); Lymphocytes # 1.9 K/mcL (0.6-4.6); Lymphocytes % 19.4 %; Mean Corpuscular HGB Conc 31.1 g/dL (31.6-35.5); Mean Corpuscular Hemoglobin 27.8 pg (28.0-33.3); Mean Corpuscular Volume 89.4 fL (83.0-100.0); Mean Platelet Volume 10.3 fL (9.4-12.4); Neutrophils # 6.7 K/mcL (1.6-8.9); Platelet Count 365 K/mcL (140-400); Red Blood Count 3.31 M/mcL (3.82-4.97); Red Cell Distribution Width 16.7 % (11.5-14.5); Segmented Neutrophils % 67.1 %
[2018-05-30] MEDS: Ipratropium/Albuterol Neb 3 ML IH SCH ×6 (03:29→23:37)
[2018-05-30 03:48] LABS: Alanine Aminotransferase 30 Units/L (7-52); Albumin 2.4 g/dL (3.5-5.7); Albumin/Globulin Ratio 0.6 (1.1-2.2); Alkaline Phosphatase 76 Units/L (34-104); Aspartate Amino Transferase 30 Units/L (13-39); BUN/Creatinine Ratio 12 (6-26); Bilirubin,Total 0.6 mg/dL (0.3-1.0); Blood Urea Nitrogen 10 mg/dL (8-23); Calcium 8.3 mg/dL (8.6-10.3); Carbon Dioxide 27 mEq/L (23-29); Chloride 103 mEq/L (98-107); Glucose 93 mg/dL (70-105); Osmolality,Calculated 281 (280-300); Potassium 3.6 mEq/L (3.5-5.1); Sodium 136 mEq/L (136-145); Total Protein 6.4 g/dL (6.4-8.9); eGFR For Non-African Americans > 60 (> 60)
[2018-05-30] MEDS: Potassium Chloride 40 MEQ/200 ML BAG IVPB PRN (04:10)
[2018-05-30] MEDS: *HR* Enoxaparin 80 MG/0.8 ML SYRINGE SQ SCH ×2 (05:02→17:20)
[2018-05-30] MEDS: Lacri-Lube 3.5 GM TUBE BOTH EYES SCH (07:43)
--- NOTE | 2018-05-30 07:43 | Pulmonology Progress Note ---
<Troy Jarquin - Last Filed: 05/30/18 18:33> Date of Encounter: 05/30/18 Time of Encounter: 07:42 Assessment and Plan (1) Acute respiratory failure with hypoxia Current Visit: Yes Status: Acute - Currently resolved : she was in acute respiratory failure with hypoxia secondary to her pneumonia and was intubated for the second time. - patient recently completed her course of Abx : Vanc/Zosyn, - patient underwent CPAP trial, was extubated yesterday -montoring hemodynamic status (2) Delirium Current Visit: No Status: Acute - patient has a Hx of hyperactive delirium - PRN haldol if she gets delirious again (3) Healthcare-associated pneumonia Current Visit: Yes Status: Acute - Patient's sputum was positive for MRSA and Klebsiella on 05/14 - She underwent 2 weeks of Abx therapy (Vanc and Zosyn) - her Physical exam looks unremarkable: no decreased breath sounds, or wheezing appreciated - her new sputum culture was positive for MRSA - ID has been consulted, patient is curently on Vanc for the night (4) Septic shock Current Visit: Yes Status: Resolved -resolved -patient is currently not on pressors, she is not hypotensive, completed 2 weeks of Abx, does not meet the SIRS criteria currently. - keep monitoring patient's hemodynamic status. (5) Dementia Current Visit: Yes Status: Chronic - patient has a Hx of dementia - continue on her home medications Qualifiers: Dementia type: unspecified type Dementia behavioral disturbance: with behavioral disturbance Qualified Code(s): F03.91 - Unspecified dementia with behavioral disturbance (6) DVT prophylaxis Current Visit: No Status: Acute - SQ Lovenox 80mg q12h Subjective Principal diagnosis: Dehydration, sepsis, pneumonia Interval history: Patient was extubated yesterday. Patient sputum was again positive for MRSA : ID has been consulted . She failed her speech therapy and is currently NPO. It could due to the fact that her gag reflex must have got compromised secondary to her being on multiple medications when she was intubated and sedated. Patient also has a Hx of hyperactive delirium and agitation, therefore at this point it would be difficult to put a PEG tube because she could pull it out . Family really wants to know why is she not on a PEG tube. Dr. Hernandez laid down the pros and cons of having a PEG tube and ask the family to let him know about their decision tomorrow morning. She'll be reassessed by the speech therapy tomorrow Objective PUL Vital signs: Last Vital Signs Temp 97.7 F 05/30/18 03:00 Pulse 106 05/30/18 07:00 Resp 24 05/30/18 07:00 BP 148/82 05/30/18 07:00 Pulse Ox 95 05/30/18 07:00 General appearance: no acute distress (afebrile , somnolent), asleep Effort: normal (no wheezing, ronchi or rales) Auscultation: bilateral: clear Percussion: bilateral: not dull Cardiovascular: regular rate and rhythm (no gallops, murmurs or rubs) Gastrointestinal: normoactive bowel sounds, soft, non-tender Extremities: no edema, pulses normal, other (deep vein thrombosis) Results - Laboratory Findings CBC and BMP: 05/30/18 03:00 05/30/18 03:00 ABG ABG pH 7.37 pH Units (7.32-7.45) 05/26/18 05:23 ABG pCO2 38 mmHg (35-45) 05/26/18 05:23 ABG pO2 107 mmHg (85-104) H 05/26/18 05:23 ABG O2 Saturation 98 % (95-98) 05/26/18 05:23 PT/INR, D-dimer PT 18.8 Seconds (9.4-12.1) H 05/14/18 06:51 Abnormal lab findings: Abnormal lab results RBC 3.31 M/mcL (3.82-4.97) L 05/30/18 03:00 Hgb 9.2 g/dL (11.5-15.4) L 05/30/18 03:00 Hct 29.6 % (35.3-44.9) L 05/30/18 03:00 MCH 27.8 pg (28.0-33.3) L 05/30/18 03:00 MCHC 31.1 g/dL (31.6-35.5) L 05/30/18 03:00 RDW 16.7 % (11.5-14.5) H 05/30/18 03:00 Band Neutrophils % 10.0 % (0-4) H 05/14/18 06:57 Nucleated RBCs/100 WBC 0.1 /100 WBC (0) H 05/18/18 03:15 Toxic Granulation Present (Not Present) A 05/16/18 03:00 Toxic Vacuolation Present (Not Present) A 05/15/18 03:15 Large Platelets Present (Not Present) A 05/26/18 04:20 Polychromasia 1+ (Not Present) A 05/14/18 03:26 Hypochromasia Present (Not Present) A 05/17/18 03:15 Poikilocytosis 1+ (Not Present) A 05/16/18 03:00 Anisocytosis 1+ (Not Present) A 05/26/18 04:20 Macrocytosis Present (Not Present) A 05/17/18 03:15 PT 18.8 Seconds (9.4-12.1) H 05/14/18 06:51 APTT 22.5 Seconds (26.0-36.0) L 05/14/18 06:51 ABG pO2 107 mmHg (85-104) H 05/26/18 05:23 ABG Base Excess -3 mEq/L (-2 to 3) L 05/26/18 05:23 Calcium 8.3 mg/dL (8.6-10.3) L 05/30/18 03:00 Venous Ioniz Calcium 1.05 mmol/L (1.15-1.35) L 05/28/18 05:13 Direct Bilirubin 0.3 mg/dL (0.0-0.2) H 05/14/18 02:57 Troponin I 0.07 ng/mL (< 0.04) H* 05/14/18 06:57 Albumin 2.4 g/dL (3.5-5.7) L 05/30/18 03:00 Globulin 4.0 g/dL (2.4-3.5) H 05/30/18 03:00 Albumin/Globulin Ratio 0.6 (1.1-2.2) L 05/30/18 03:00 Urine Clarity Cloudy (Clear) A 05/14/18 02:06 Urine Protein 30 mg/dL (Neg-Trace) H 05/14/18 02:06 Urine Bilirubin Small (Negative) H 05/14/18 02:06 Ur Leukocyte Esterase Large (Negative) H 05/14/18 02:06 Urine Microscopic RBC 3-5 per hpf (0-3) H 05/14/18 02:06 Urine Microscopic WBC 15-30 per hpf (0-3) H 05/14/18 02:06 Ur Squamous Epith Cells Moderate per lpf (None-Few) H 05/14/18 02:06 Urine Bacteria Moderate per hpf (None-Few) H 05/14/18 02:06 Ur Culture Indicated? YES (NO) A 05/14/18 02:06 Vancomycin Trough 16 mcg/mL (5-10) H 05/25/18 07:40 - Microbiology Findings Microbiology Findings: Microbiology, Last 48 Hours 05/29/18 13:00 Sputum Culture - Preliminary Sputum 05/29/18 13:02 Blood Culture - Preliminary Central Venous Catheter Culture is incubating and being continuously monitored for growth. Final report to follow. 05/29/18 13:03 Blood Culture - Preliminary Peripheral Venipuncture Culture is incubating and being continuously monitored for growth. Final report to follow. 05/24/18 12:51 Blood Culture - Final Peripheral Venipuncture No growth. Final report. 05/24/18 12:51 Blood Culture - Final Peripheral Venipuncture No growth. Final report. - Clinical Findings Intake & Output: Intake & Output 05/29/18 05/29/18 05/30/18 15:59 23:59 07:59 Intake Total 180 / 180 100 / 100 200 / 200 Output Total 425 / 425 300 / 300 200 / 200 Balance -245 / -245 -200 / -200 0 / 0 Weight 80 kg - VTE Documentation of Mechanical Device: Intermittent pneumatic compression device Consult Discharge Plan - Plan Referrals: Albertina Huerta MD [Primary Care Provider] - <Anurag Brown - Last Filed: 05/31/18 09:10> Date of Encounter: 05/31/18 Objective PUL Vital signs: Last Vital Signs Temp 99.3 F 05/30/18 07:45 Pulse 105 05/30/18 10:00 Resp 19 05/30/18 10:00 BP 127/77 05/30/18 10:00 Pulse Ox 94 05/30/18 10:00 Results - Laboratory Findings CBC and BMP: 05/31/18 04:15 05/31/18 04:15 ABG ABG pH 7.37 pH Units (7.32-7.45) 05/26/18 05:23 ABG pCO2 38 mmHg (35-45) 05/26/18 05:23 ABG pO2 107 mmHg (85-104) H 05/26/18 05:23 ABG O2 Saturation 98 % (95-98) 05/26/18 05:23 PT/INR, D-dimer PT 18.8 Seconds (9.4-12.1) H 05/14/18 06:51 Abnormal lab findings: Abnormal lab results RBC 3.31 M/mcL (3.82-4.97) L 05/30/18 03:00 Hgb 9.2 g/dL (11.5-15.4) L 05/30/18 03:00 Hct 29.6 % (35.3-44.9) L 05/30/18 03:00 MCH 27.8 pg (28.0-33.3) L 05/30/18 03:00 MCHC 31.1 g/dL (31.6-35.5) L 05/30/18 03:00 RDW 16.7 % (11.5-14.5) H 05/30/18 03:00 Band Neutrophils % 10.0 % (0-4) H 05/14/18 06:57 Nucleated RBCs/100 WBC 0.1 /100 WBC (0) H 05/18/18 03:15 Toxic Granulation Present (Not Present) A 05/16/18 03:00 Toxic Vacuolation Present (Not Present) A 05/15/18 03:15 Large Platelets Present (Not Present) A 05/26/18 04:20 Polychromasia 1+ (Not Present) A 05/14/18 03:26 Hypochromasia Present (Not Present) A 05/17/18 03:15 Poikilocytosis 1+ (Not Present) A 05/16/18 03:00 Anisocytosis 1+ (Not Present) A 05/26/18 04:20 Macrocytosis Present (Not Present) A 05/17/18 03:15 PT 18.8 Seconds (9.4-12.1) H 05/14/18 06:51 APTT 22.5 Seconds (26.0-36.0) L 05/14/18 06:51 ABG pO2 107 mmHg (85-104) H 05/26/18 05:23 ABG Base Excess -3 mEq/L (-2 to 3) L 05/26/18 05:23 Calcium 8.3 mg/dL (8.6-10.3) L 05/30/18 03:00 Venous Ioniz Calcium 1.05 mmol/L (1.15-1.35) L 05/28/18 05:13 Direct Bilirubin 0.3 mg/dL (0.0-0.2) H 05/14/18 02:57 Troponin I 0.07 ng/mL (< 0.04) H* 05/14/18 06:57 Albumin 2.4 g/dL (3.5-5.7) L 05/30/18 03:00 Globulin 4.0 g/dL (2.4-3.5) H 05/30/18 03:00 Albumin/Globulin Ratio 0.6 (1.1-2.2) L 05/30/18 03:00 Urine Clarity Cloudy (Clear) A 05/14/18 02:06 Urine Protein 30 mg/dL (Neg-Trace) H 05/14/18 02:06 Urine Bilirubin Small (Negative) H 05/14/18 02:06 Ur Leukocyte Esterase Large (Negative) H 05/14/18 02:06 Urine Microscopic RBC 3-5 per hpf (0-3) H 05/14/18 02:06 Urine Microscopic WBC 15-30 per hpf (0-3) H 05/14/18 02:06 Ur Squamous Epith Cells Moderate per lpf (None-Few) H 05/14/18 02:06 Urine Bacteria Moderate per hpf (None-Few) H 05/14/18 02:06 Ur Culture Indicated? YES (NO) A 05/14/18 02:06 Vancomycin Trough 16 mcg/mL (5-10) H 05/25/18 07:40 - Microbiology Findings Microbiology Findings: Microbiology, Last 48 Hours 05/29/18 13:00 Sputum Culture - Preliminary Sputum 05/29/18 13:02 Blood Culture - Preliminary Central Venous Catheter Culture is incubating and being continuously monitored for growth. Final report to follow. 05/29/18 13:03 Blood Culture - Preliminary Peripheral Venipuncture Culture is incubating and being continuously monitored for growth. Final report to follow. 05/24/18 12:51 Blood Culture - Final Peripheral Venipuncture No growth. Final report. 05/24/18 12:51 Blood Culture - Final Peripheral Venipuncture No growth. Final report. - Clinical Findings Intake & Output: Intake & Output 05/29/18 05/30/18 05/30/18 23:59 07:59 15:59 Intake Total 100 / 100 200 / 200 105 / 105 Output Total 300 / 300 575 / 575 Balance -200 / -200 -375 / -375 105 / 105 Weight 80 kg - Attending Attestation I examined this patient and my medical decision-making was reviewed with the Resident Physician. I agree with the documented findings, disposition and treatment plan as described except to the extent set forth below. Patient seen and examined. Labs, radiology, chart personally reviewed. 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 Cardiovascular: stable GI: Nutrition per dietary and GI prophylaxis per routine. Patient will need nutrition and possible PEG tube a family wished to continue more aggressive care. Heme: DVT prophylaxis per routine ID: Patient completed course of antibiotics Renal; urine out put and renal funtion reviewed Endorcine: blood glucose is monitored Lines: all lines checked and no evidence of infections Skin: skin care to prevent pressure ulcers per nursing routine care Overall poor prognosis and palliative care to continue discussion with the family. I had extensively discussion with patient's family about plan of care and I still feel prognosis is poor. Will call surgery regarding PEG placement and if it will not be placed in [place], then they want patient to be transferred to another facility.
[2018-05-30] MEDS: Levothyroxine Sodium 100 MCG VIAL IVP SCH (07:46)
[2018-05-30] MEDS: Pantoprazole 40 MG VIAL IVP SCH (07:46)
[2018-05-30] MEDS: Chlorhexidine Rinse 15 ML MOUTHWASH MM SCH (07:46)
[2018-05-30] MEDS: Nystatin POWDER 30 GM BOTTLE TP SCH ×3 (07:49→21:01)
[2018-05-30] MEDS: Fluconazole 100 MG/50 ML 100 MG/50 ML BAG IVPB SCH (08:53)
[2018-05-30] MEDS ORDERED: Haloperidol Lactate 5 MG/ML VIAL IVP PRN (10:58)
--- NOTE | 2018-05-30 14:12 | Palliative Progress Note ---
Date of Encounter: 05/30/18 Time of Encounter: 13:30 - Assessment and plan (1) Dementia Current Visit: No Status: Chronic Assessment and plan: Patient has baseline dementia. Patient unable to take home medication for dementia due to NPO status. Managed by ICU team. Qualifiers: Dementia type: unspecified type Dementia behavioral disturbance: with behavioral disturbance Qualified Code(s): F03.91 - Unspecified dementia with behavioral disturbance (2) Status post Sunny's procedure Current Visit: No Status: Acute (3) Acute respiratory failure with hypoxia Current Visit: Yes Status: Acute Assessment and plan: Patient's oxygen saturation 90-100% on 2-3L NC. Tolerating well. Continue oxygen therapy at this time. (4) Septic shock Current Visit: Yes Status: Acute (5) Goals of care, counseling/discussion Current Visit: Yes Status: Acute Assessment and plan: Conducted family meeting with patient's two daughters, Leanna and Belkys. Discussed overall prognosis poor; however, some clinical avenues have improved as able to stay off Ventilator. Discussed potential of patient getting tired and requiring bipap/ventilator support; verbalized understanding and desires to have patient intubated if necessary then will make further decisions regarding usp goals of care including tracheostomy at that time. Discussed complication of no gag reflex and unable to provide nutrition at present time; verbalized understanding and desire for patient to have repeat speech evaluation tomorrow as patient has a history of being unable to eat then after a few days off of medication able to eat. Discussed desires for CPR if medically indicated; verbalized understanding desire to keep patient FULL CODE. Current rodent exterminator goal for improved clinical state then discharge for rehab prior to returning home; verbalized understanding that this may not be possible due to overall poor prognosis, but reports want to give patient every effort to live as long as she can. Updated ICU staff of patient's family's desires regarding goals of care and CODE STATUS. Palliative care will follow at a distance per request of ICU team. - Time Spent With Patient Total time spent is greater than 50% in coordination of care (as documented) at patient's floor/unit and/or counseling patient: - Subjective Interval history: Patient resting quietly upon arrival for assessment. Patient's daughter, Belkys , present at bedside. Unable to evaluate for orientation. Patient was extubated yesterday and tolerated well. VSS. WBC increased to 10. Belkys reports Leanna will be in later and requests return visit at that time to discuss goals of care and code status. Reconvened at 1330 with both daughters present to discuss present clinical status. - Constitutional Vitals: Abnormal lab results RBC 3.31 M/mcL (3.82-4.97) L 05/30/18 03:00 Hgb 9.2 g/dL (11.5-15.4) L 05/30/18 03:00 Hct 29.6 % (35.3-44.9) L 05/30/18 03:00 MCH 27.8 pg (28.0-33.3) L 05/30/18 03:00 MCHC 31.1 g/dL (31.6-35.5) L 05/30/18 03:00 RDW 16.7 % (11.5-14.5) H 05/30/18 03:00 Band Neutrophils % 10.0 % (0-4) H 05/14/18 06:57 Nucleated RBCs/100 WBC 0.1 /100 WBC (0) H 05/18/18 03:15 Toxic Granulation Present (Not Present) A 05/16/18 03:00 Toxic Vacuolation Present (Not Present) A 05/15/18 03:15 Large Platelets Present (Not Present) A 05/26/18 04:20 Polychromasia 1+ (Not Present) A 05/14/18 03:26 Hypochromasia Present (Not Present) A 05/17/18 03:15 Poikilocytosis 1+ (Not Present) A 05/16/18 03:00 Anisocytosis 1+ (Not Present) A 05/26/18 04:20 Macrocytosis Present (Not Present) A 05/17/18 03:15 PT 18.8 Seconds (9.4-12.1) H 05/14/18 06:51 APTT 22.5 Seconds (26.0-36.0) L 05/14/18 06:51 ABG pO2 107 mmHg (85-104) H 05/26/18 05:23 ABG Base Excess -3 mEq/L (-2 to 3) L 05/26/18 05:23 Calcium 8.3 mg/dL (8.6-10.3) L 05/30/18 03:00 Venous Ioniz Calcium 1.05 mmol/L (1.15-1.35) L 05/28/18 05:13 Direct Bilirubin 0.3 mg/dL (0.0-0.2) H 05/14/18 02:57 Troponin I 0.07 ng/mL (< 0.04) H* 05/14/18 06:57 Albumin 2.4 g/dL (3.5-5.7) L 05/30/18 03:00 Globulin 4.0 g/dL (2.4-3.5) H 05/30/18 03:00 Albumin/Globulin Ratio 0.6 (1.1-2.2) L 05/30/18 03:00 Urine Clarity Cloudy (Clear) A 05/14/18 02:06 Urine Protein 30 mg/dL (Neg-Trace) H 05/14/18 02:06 Urine Bilirubin Small (Negative) H 05/14/18 02:06 Ur Leukocyte Esterase Large (Negative) H 05/14/18 02:06 Urine Microscopic RBC 3-5 per hpf (0-3) H 05/14/18 02:06 Urine Microscopic WBC 15-30 per hpf (0-3) H 05/14/18 02:06 Ur Squamous Epith Cells Moderate per lpf (None-Few) H 05/14/18 02:06 Urine Bacteria Moderate per hpf (None-Few) H 05/14/18 02:06 Ur Culture Indicated? YES (NO) A 05/14/18 02:06 Vancomycin Trough 16 mcg/mL (5-10) H 05/25/18 07:40 General appearance: Present: no acute distress - Head Head exam: Present: atraumatic, normal inspection - Eye Eye exam: Present: normal appearance. Absent: periorbital swelling, periorbital tenderness - ENT ENT exam: Present: mucous membranes dry, normal exam - Neck Neck exam: Present: full ROM, normal inspection - Respiratory Respiratory exam: Present: CTAB. Absent: accessory muscle use, respiratory distress - Cardiovascular Cardiovascular exam: Present: RRR, +S1, +S2 - GI/Abdominal GI/Abdominal exam: Present: hyperactive bowel sounds, soft. Absent: tenderness - Rectal Rectal exam: Present: deferred - Extremities Exam Extremities exam: Present: pedal edema (1+). Absent: tenderness - Neurological Exam Neurological exam: Present: altered. Absent: oriented X3 - Psychiatric Psychiatric exam: Present: flat affect - Skin Skin exam: Present: dry, intact, warm Palliative Quality Palliative Quality: Screen for Code Status: Yes, Screen for Goals of Care: Yes, Screen for Pain: NA, If Pain Regimen Started, Initiate Bowel Regimen: NA, Screen for Nausea/Vomitting: NA Code Status: 05/14/18 06:50 Resuscitation Status: Active [RES] Routine Comment: Resuscitation Status: Full Code - Labs CBC & Chem 7: 05/30/18 03:00 05/30/18 03:00 Labs: Laboratory Results - last 24 hr 05/29/18 05/29/18 05/29/18 13:02 15:12 17:40 WBC RBC Hgb Hct MCV MCH MCHC RDW Plt Count MPV Immature Gran % Seg Neutrophils % Lymphocytes % Monocytes % Eosinophils % Basophils % Neutrophils # Lymphocytes # Monocytes # Eosinophils # Basophils # Sodium Potassium 4.1 Chloride Carbon Dioxide BUN Creatinine Est GFR ( Amer) Est GFR (Non-Af Amer) BUN/Creatinine Ratio Glucose POC Glucose 107 H Calculated Osmolality Lactic Acid 0.8 Calcium Total Bilirubin AST ALT Alkaline Phosphatase Serum Total Protein Albumin Globulin Albumin/Globulin Ratio 05/29/18 05/29/18 05/30/18 19:26 23:28 03:00 WBC 10.0 RBC 3.31 L Hgb 9.2 L Hct 29.6 L MCV 89.4 MCH 27.8 L MCHC 31.1 L RDW 16.7 H Plt Count 365 MPV 10.3 Immature Gran % 1.3 Seg Neutrophils % 67.1 Lymphocytes % 19.4 Monocytes % 10.0 Eosinophils % 1.6 Basophils % 0.6 Neutrophils # 6.7 Lymphocytes # 1.9 Monocytes # 1.0 Eosinophils # 0.2 Basophils # 0.1 Sodium Potassium Chloride Carbon Dioxide BUN Creatinine Est GFR ( Amer) Est GFR (Non-Af Amer) BUN/Creatinine Ratio Glucose POC Glucose 92 90 Calculated Osmolality Lactic Acid Calcium Total Bilirubin AST ALT Alkaline Phosphatase Serum Total Protein Albumin Globulin Albumin/Globulin Ratio 05/30/18 05/30/18 05/30/18 03:00 07:14 11:43 WBC RBC Hgb Hct MCV MCH MCHC RDW Plt Count MPV Immature Gran % Seg Neutrophils % Lymphocytes % Monocytes % Eosinophils % Basophils % Neutrophils # Lymphocytes # Monocytes # Eosinophils # Basophils # Sodium 136 Potassium 3.6 Chloride 103 Carbon Dioxide 27 BUN 10 Creatinine 0.81 Est GFR ( Amer) > 60 Est GFR (Non-Af Amer) > 60 BUN/Creatinine Ratio 12 Glucose 93 POC Glucose 92 87 Calculated Osmolality 281 Lactic Acid Calcium 8.3 L Total Bilirubin 0.6 AST 30 ALT 30 Alkaline Phosphatase 76 Serum Total Protein 6.4 Albumin 2.4 L Globulin 4.0 H Albumin/Globulin Ratio 0.6 L - ABG Interpretation ABG results: ABG ABG pH 7.37 pH Units (7.32-7.45) 05/26/18 05:23 ABG pCO2 38 mmHg (35-45) 05/26/18 05:23 ABG pO2 107 mmHg (85-104) H 05/26/18 05:23 ABG O2 Saturation 98 % (95-98) 05/26/18 05:23 PT/INR, D-dimer PT 18.8 Seconds (9.4-12.1) H 05/14/18 06:51 Consult Discharge Plan - Plan Referrals: Albertina Huerta MD [Primary Care Provider] -
[2018-05-30] MEDS: OXYCODONE Oral CONC 10 MG/0.5 ML ORAL.SYG SL PRN (15:29)
[2018-05-30] MEDS: D5% in 0.45% NACL 1,000 ML IVC SCH (16:41)
--- NOTE | 2018-05-30 17:15 | General Surgery Consult Note ---
<Elsa Licona E - Last Filed: 05/30/18 17:11> Date of Encounter: 05/30/18 Time of Encounter: 17:12 Assessment and Plan (1) Dysphagia Current Visit: Yes Status: Acute Talked with family about possibility of placing PEG Tube and the risks involved including the Patient dislodging the PEG Tube due to her Dementia. Will see how she does overnight after being weaned off of the ventilator for a period of time Will discuss with family further tomorrow morning if PEG placement is wanted or if alternative plans will be made Qualifiers: Dysphagia type: unspecified Qualified Code(s): R13.10 - Dysphagia, unspecified (2) Dementia Current Visit: No Status: Chronic Patient has history of dementia that was worsened post-operatively Continuation of home medications as per primary Qualifiers: Dementia type: unspecified type Dementia behavioral disturbance: without behavioral disturbance Qualified Code(s): F03.90 - Unspecified dementia without behavioral disturbance (3) Healthcare-associated pneumonia Current Visit: Yes Status: Acute Continue Vanc and consult with ID as per primary History of Present Illness Consult date: 05/30/18 Reason for consult: other (Request for PEG Tube Placement) History of present illness: Patient had a 4 cm benign mass excised from the rectosigmoid area with further Torrez's procedure on 04/18/18. Has currently been admitted for progressive pneumonia, she was weaned off of the ventilator today Currently unable to swallow foods for swallow study Dementia worse post-operatively Lung problems worse post-operatively Past Med Surg Social Fam HX - Past Medical History Medical history: hyperlipidemia, hypertension, thyroid disease, venous stasis, other Psychiatric history: other - Past Surgical History Surgical History: no surgical history - Social History Smoking Status: Never smoker Smokeless Tobacco Status: No Alcohol use: none Drug use: none Medications and Allergies Aspirin [Lo-Dose Aspirin EC] 81 mg PO DAILY 04/18/18 [History] Citalopram [CeleXA] 30 mg PO DAILY 04/18/18 [History] Donepezil HCl [Aricept] 10 mg PO HS 04/18/18 [History] Levothyroxine [Synthroid] 100 mcg PO DAILY 04/18/18 [History] Simvastatin [Zocor] 20 mg PO DAILY 04/18/18 [History] Cholecalciferol (D-3) [Vitamin D] 1,000 unit PO DAILY tablet 05/10/18 [Rx] Multivit/Ca/Min/Fe/FA [Thera M Plus] 1 tab PO DAILY tablet 05/10/18 [Rx] Tamsulosin [Flomax] 0.4 mg PO DAILY capsule 05/10/18 [Rx] traZODone [TraZODone] 50 mg PO HS tablet 05/10/18 [Rx] Amlodipine Besylate 10 mg PO DAILY 05/14/18 [History] Hydrocodone/Acetaminophen [Hydrocodon-Acetamin 7.5-325/15] 15 ml PO Q8H PRN [History] LORazepam Oral Conc [Ativan Oral Conc] 1 mg SL Q8H PRN 05/14/18 [History] 3 Allergy/AdvReac Type Severity Reaction Status Date / Time No Known Allergies Allergy Verified 04/20/17 08:49 Review of Systems ROS unobtainable: due to mental status All systems PM: The remainder of the systems were reviewed and are negative - Constitutional weakness General Surgery Exam Initial Vital Signs Temp Pulse Resp BP Pulse Ox 98.6 F 107 40 73/51 85 05/14/18 01:20 05/14/18 01:20 05/14/18 01:20 05/14/18 01:20 05/14/18 01:20 - General physical appearance moderate distress, chronically ill - Respiratory normal respiratory effort, clear to auscultation - Cardiovascular Cardiovascular exam: Present: RRR, no murmurs/rubs/gallops - Abdomen Abdomen general surgery: Present: bowel sounds present, soft, non tender Exam Initial Vital Signs Temp Pulse Resp BP Pulse Ox 98.6 F 107 40 73/51 85 05/14/18 01:20 05/14/18 01:20 05/14/18 01:20 05/14/18 01:20 05/14/18 01:20 Results - Labs 05/30/18 03:00 05/30/18 03:00 Abnormal lab results RBC 3.31 M/mcL (3.82-4.97) L 05/30/18 03:00 Hgb 9.2 g/dL (11.5-15.4) L 05/30/18 03:00 Hct 29.6 % (35.3-44.9) L 05/30/18 03:00 MCH 27.8 pg (28.0-33.3) L 05/30/18 03:00 MCHC 31.1 g/dL (31.6-35.5) L 05/30/18 03:00 RDW 16.7 % (11.5-14.5) H 05/30/18 03:00 Band Neutrophils % 10.0 % (0-4) H 05/14/18 06:57 Nucleated RBCs/100 WBC 0.1 /100 WBC (0) H 05/18/18 03:15 Toxic Granulation Present (Not Present) A 05/16/18 03:00 Toxic Vacuolation Present (Not Present) A 05/15/18 03:15 Large Platelets Present (Not Present) A 05/26/18 04:20 Polychromasia 1+ (Not Present) A 05/14/18 03:26 Hypochromasia Present (Not Present) A 05/17/18 03:15 Poikilocytosis 1+ (Not Present) A 05/16/18 03:00 Anisocytosis 1+ (Not Present) A 05/26/18 04:20 Macrocytosis Present (Not Present) A 05/17/18 03:15 PT 18.8 Seconds (9.4-12.1) H 05/14/18 06:51 APTT 22.5 Seconds (26.0-36.0) L 05/14/18 06:51 ABG pO2 107 mmHg (85-104) H 05/26/18 05:23 ABG Base Excess -3 mEq/L (-2 to 3) L 05/26/18 05:23 Calcium 8.3 mg/dL (8.6-10.3) L 05/30/18 03:00 Venous Ioniz Calcium 1.05 mmol/L (1.15-1.35) L 05/28/18 05:13 Direct Bilirubin 0.3 mg/dL (0.0-0.2) H 05/14/18 02:57 Troponin I 0.07 ng/mL (< 0.04) H* 05/14/18 06:57 Albumin 2.4 g/dL (3.5-5.7) L 05/30/18 03:00 Globulin 4.0 g/dL (2.4-3.5) H 05/30/18 03:00 Albumin/Globulin Ratio 0.6 (1.1-2.2) L 05/30/18 03:00 Urine Clarity Cloudy (Clear) A 05/14/18 02:06 Urine Protein 30 mg/dL (Neg-Trace) H 05/14/18 02:06 Urine Bilirubin Small (Negative) H 05/14/18 02:06 Ur Leukocyte Esterase Large (Negative) H 05/14/18 02:06 Urine Microscopic RBC 3-5 per hpf (0-3) H 05/14/18 02:06 Urine Microscopic WBC 15-30 per hpf (0-3) H 05/14/18 02:06 Ur Squamous Epith Cells Moderate per lpf (None-Few) H 05/14/18 02:06 Urine Bacteria Moderate per hpf (None-Few) H 05/14/18 02:06 Ur Culture Indicated? YES (NO) A 05/14/18 02:06 Vancomycin Trough 16 mcg/mL (5-10) H 05/25/18 07:40 Diabetes panel 05/29/18 05/30/18 Range/Units 17:40 03:00 Sodium 136 (136-145) mEq/L Potassium 4.1 3.6 (3.5-5.1) mEq/L Chloride 103 (98-107) mEq/L Carbon Dioxide 27 (23-29) mEq/L BUN 10 (8-23) mg/dL Creatinine 0.81 (0.60-1.20) mg/dL Glucose 93 (70-105) mg/dL Calcium 8.3 L (8.6-10.3) mg/dL AST 30 (13-39) Units/L ALT 30 (7-52) Units/L Alkaline Phosphatase 76 (34-104) Units/L Albumin 2.4 L (3.5-5.7) g/dL Calcium panel 05/30/18 Range/Units 03:00 Calcium 8.3 L (8.6-10.3) mg/dL Albumin 2.4 L (3.5-5.7) g/dL Pituitary panel 05/29/18 05/30/18 Range/Units 17:40 03:00 Sodium 136 (136-145) mEq/L Potassium 4.1 3.6 (3.5-5.1) mEq/L Chloride 103 (98-107) mEq/L Carbon Dioxide 27 (23-29) mEq/L BUN 10 (8-23) mg/dL Creatinine 0.81 (0.60-1.20) mg/dL Glucose 93 (70-105) mg/dL Calcium 8.3 L (8.6-10.3) mg/dL Adrenal panel 05/29/18 05/30/18 Range/Units 17:40 03:00 Sodium 136 (136-145) mEq/L Potassium 4.1 3.6 (3.5-5.1) mEq/L Chloride 103 (98-107) mEq/L Carbon Dioxide 27 (23-29) mEq/L BUN 10 (8-23) mg/dL Creatinine 0.81 (0.60-1.20) mg/dL Glucose 93 (70-105) mg/dL Calcium 8.3 L (8.6-10.3) mg/dL Total Bilirubin 0.6 (0.3-1.0) mg/dL AST 30 (13-39) Units/L ALT 30 (7-52) Units/L Alkaline Phosphatase 76 (34-104) Units/L Albumin 2.4 L (3.5-5.7) g/dL All other labs normal. Consult Discharge Plan - Plan Referrals: Albertina Huerta MD [Primary Care Provider] - <Virgil Hernandez - Last Filed: 05/30/18 18:42> Date of Encounter: 05/30/18 Review of Systems All systems PM: The remainder of the systems were reviewed and are negative General Surgery Exam Initial Vital Signs Temp Pulse Resp BP Pulse Ox 98.6 F 107 40 73/51 85 05/14/18 01:20 05/14/18 01:20 05/14/18 01:20 05/14/18 01:20 05/14/18 01:20 Exam Initial Vital Signs Temp Pulse Resp BP Pulse Ox 98.6 F 107 40 73/51 85 05/14/18 01:20 05/14/18 01:20 05/14/18 01:20 05/14/18 01:20 05/14/18 01:20 Results - Labs 05/30/18 03:00 05/30/18 03:00 Abnormal lab results RBC 3.31 M/mcL (3.82-4.97) L 05/30/18 03:00 Hgb 9.2 g/dL (11.5-15.4) L 05/30/18 03:00 Hct 29.6 % (35.3-44.9) L 05/30/18 03:00 MCH 27.8 pg (28.0-33.3) L 05/30/18 03:00 MCHC 31.1 g/dL (31.6-35.5) L 05/30/18 03:00 RDW 16.7 % (11.5-14.5) H 05/30/18 03:00 Band Neutrophils % 10.0 % (0-4) H 05/14/18 06:57 Nucleated RBCs/100 WBC 0.1 /100 WBC (0) H 05/18/18 03:15 Toxic Granulation Present (Not Present) A 05/16/18 03:00 Toxic Vacuolation Present (Not Present) A 05/15/18 03:15 Large Platelets Present (Not Present) A 05/26/18 04:20 Polychromasia 1+ (Not Present) A 05/14/18 03:26 Hypochromasia Present (Not Present) A 05/17/18 03:15 Poikilocytosis 1+ (Not Present) A 05/16/18 03:00 Anisocytosis 1+ (Not Present) A 05/26/18 04:20 Macrocytosis Present (Not Present) A 05/17/18 03:15 PT 18.8 Seconds (9.4-12.1) H 05/14/18 06:51 APTT 22.5 Seconds (26.0-36.0) L 05/14/18 06:51 ABG pO2 107 mmHg (85-104) H 05/26/18 05:23 ABG Base Excess -3 mEq/L (-2 to 3) L 05/26/18 05:23 Calcium 8.3 mg/dL (8.6-10.3) L 05/30/18 03:00 Venous Ioniz Calcium 1.05 mmol/L (1.15-1.35) L 05/28/18 05:13 Direct Bilirubin 0.3 mg/dL (0.0-0.2) H 05/14/18 02:57 Troponin I 0.07 ng/mL (< 0.04) H* 05/14/18 06:57 Albumin 2.4 g/dL (3.5-5.7) L 05/30/18 03:00 Globulin 4.0 g/dL (2.4-3.5) H 05/30/18 03:00 Albumin/Globulin Ratio 0.6 (1.1-2.2) L 05/30/18 03:00 Urine Clarity Cloudy (Clear) A 05/14/18 02:06 Urine Protein 30 mg/dL (Neg-Trace) H 05/14/18 02:06 Urine Bilirubin Small (Negative) H 05/14/18 02:06 Ur Leukocyte Esterase Large (Negative) H 05/14/18 02:06 Urine Microscopic RBC 3-5 per hpf (0-3) H 05/14/18 02:06 Urine Microscopic WBC 15-30 per hpf (0-3) H 05/14/18 02:06 Ur Squamous Epith Cells Moderate per lpf (None-Few) H 05/14/18 02:06 Urine Bacteria Moderate per hpf (None-Few) H 05/14/18 02:06 Ur Culture Indicated? YES (NO) A 05/14/18 02:06 Vancomycin Trough 16 mcg/mL (5-10) H 05/25/18 07:40 Diabetes panel 05/30/18 Range/Units 03:00 Sodium 136 (136-145) mEq/L Potassium 3.6 (3.5-5.1) mEq/L Chloride 103 (98-107) mEq/L Carbon Dioxide 27 (23-29) mEq/L BUN 10 (8-23) mg/dL Creatinine 0.81 (0.60-1.20) mg/dL Glucose 93 (70-105) mg/dL Calcium 8.3 L (8.6-10.3) mg/dL AST 30 (13-39) Units/L ALT 30 (7-52) Units/L Alkaline Phosphatase 76 (34-104) Units/L Albumin 2.4 L (3.5-5.7) g/dL Calcium panel 05/30/18 Range/Units 03:00 Calcium 8.3 L (8.6-10.3) mg/dL Albumin 2.4 L (3.5-5.7) g/dL Pituitary panel 05/30/18 Range/Units 03:00 Sodium 136 (136-145) mEq/L Potassium 3.6 (3.5-5.1) mEq/L Chloride 103 (98-107) mEq/L Carbon Dioxide 27 (23-29) mEq/L BUN 10 (8-23) mg/dL Creatinine 0.81 (0.60-1.20) mg/dL Glucose 93 (70-105) mg/dL Calcium 8.3 L (8.6-10.3) mg/dL Adrenal panel 05/30/18 Range/Units 03:00 Sodium 136 (136-145) mEq/L Potassium 3.6 (3.5-5.1) mEq/L Chloride 103 (98-107) mEq/L Carbon Dioxide 27 (23-29) mEq/L BUN 10 (8-23) mg/dL Creatinine 0.81 (0.60-1.20) mg/dL Glucose 93 (70-105) mg/dL Calcium 8.3 L (8.6-10.3) mg/dL Total Bilirubin 0.6 (0.3-1.0) mg/dL AST 30 (13-39) Units/L ALT 30 (7-52) Units/L Alkaline Phosphatase 76 (34-104) Units/L Albumin 2.4 L (3.5-5.7) g/dL All other labs normal. - Attending Attestation I examined this patient and my medical decision-making was reviewed with the Resident Physician. I agree with the documented findings, disposition and treatment plan as described except to the extent set forth below. The patient is seen and evaluated with rest and in the intensive care unit. I had long discussion with family concerning PEG tube placement. I am concerned that she has dementia and pulls at her tubing. Dislodging her PEG tube early in the course could be a threat to her. The family will discuss these options and we will have a follow-up family meeting tomorrow. Virgil Hernandez MD FACS
[2018-05-31] MEDS: Ipratropium/Albuterol Neb 3 ML IH SCH ×6 (04:21→23:14)
[2018-05-31 04:43] LABS: Basophils # 0.1 K/mcL (0.0-0.2); Basophils % 0.6 %; Eosinophils # 0.2 K/mcL (0.0-0.6); Eosinophils % 1.3 %; Hematocrit 31.3 % (35.3-44.9); Hemoglobin 9.9 g/dL (11.5-15.4); Immature Granulocytes % 1.6 % (0-4); Lymphocytes # 2.4 K/mcL (0.6-4.6); Lymphocytes % 19.1 %; Mean Corpuscular HGB Conc 31.6 g/dL (31.6-35.5); Mean Corpuscular Hemoglobin 28.4 pg (28.0-33.3); Mean Corpuscular Volume 89.7 fL (83.0-100.0); Mean Platelet Volume 9.7 fL (9.4-12.4); Monocytes # 1.4 K/mcL (0.0-1.3); Neutrophils # 8.5 K/mcL (1.6-8.9); Platelet Count 441 K/mcL (140-400); Red Blood Count 3.49 M/mcL (3.82-4.97); Red Cell Distribution Width 16.7 % (11.5-14.5); Segmented Neutrophils % 66.4 %
[2018-05-31 05:01] LABS: BUN/Creatinine Ratio 9 (6-26); Blood Urea Nitrogen 7 mg/dL (8-23); Calcium 8.5 mg/dL (8.6-10.3); Carbon Dioxide 25 mEq/L (23-29); Chloride 103 mEq/L (98-107); Glucose 109 mg/dL (70-105); Osmolality,Calculated 283 (280-300); Potassium 3.5 mEq/L (3.5-5.1); Sodium 137 mEq/L (136-145); eGFR For Non-African Americans > 60 (> 60)
[2018-05-31] MEDS: D5% in 0.45% NACL 1,000 ML IVC SCH ×2 (05:15→16:25)
[2018-05-31] MEDS: *HR* Enoxaparin 80 MG/0.8 ML SYRINGE SQ SCH ×2 (05:18→16:23)
--- NOTE | 2018-05-31 08:19 | General Surgery Progress Note ---
<LashonBruce sharpeElsa E - Last Filed: 05/31/18 08:16> Date of Encounter: 05/31/18 Time of Encounter: 08:17 - Assessment and Plan (1) Dysphagia Current Visit: Yes Status: Acute Previous discussion with family about placement of peg tube. Dr. Hernandez will see family this afternoon to discuss further. Currently no family in the room with her. Qualifiers: Dysphagia type: unspecified Qualified Code(s): R13.10 - Dysphagia, unspecified (2) Dementia Current Visit: No Status: Chronic Patient has history of dementia that was worsened post-operatively Continuation of home medications as per primary Qualifiers: Dementia type: unspecified type Dementia behavioral disturbance: without behavioral disturbance Qualified Code(s): F03.90 - Unspecified dementia without behavioral disturbance (3) Healthcare-associated pneumonia Current Visit: Yes Status: Acute Continue Vanc and consult with ID as per primary Subjective Narrative: Patient arousable to voice but does not answer questions, sleeps through most of the exam Objective Vital Signs - Last 8 Hours Temp Pulse Resp BP Pulse Ox 05/31/18 07:33 18 95 05/31/18 07:15 98.7 F 05/31/18 06:00 101 16 158/74 95 05/31/18 05:00 108 14 143/76 94 05/31/18 04:21 20 147/85 95 05/31/18 04:00 98.9 F 96 20 147/85 92 05/31/18 03:00 86 16 142/85 92 05/31/18 02:00 97 18 140/86 95 05/31/18 01:00 105 16 149/93 94 Intake and Output 05/30/18 05/31/18 05/31/18 23:59 07:59 15:59 Intake Total 250 / 250 1000 / 1000 Output Total 400 / 400 900 / 900 Balance -150 / -150 100 / 100 Intake: IV Fluids 250 / 250 1000 / 1000 D5% And 0.45% Nacl 1000 Ml Bag 1000 / 1000 1,000 ML @ 75 mls/hr IVC . [id number] [facility] Rx#:[id number] Vancocin 1,250 MG In 0.9 % 250 / 250 Sodium Chloride 250 ML @ 167 mls/hr IVPB Q24H [facility] Rx#: [id number] Output: Stool 50 / 50 0 / 0 Catheter 350 / 350 900 / 900 Other: Stool Consistency loose liquid Stool Color Brown Blood Glucose* 78 104 - General physical appearance moderate distress, chronically ill - Respiratory normal expansion, normal respiratory effort, clear to auscultation - Cardiovascular Cardiovascular exam: Present: RRR, no murmurs/rubs/gallops - Abdomen Abdomen: Present: bowel sounds present, soft, non tender Additional Comments: ostomy pink with liquid stools present - Integumentary no rash, no growths, no abnormal pigmentation - Psychiatric other (Patient wakes to voice but does not respond to questions, doses back off easily) - Labs 05/31/18 04:15 05/31/18 04:15 Diabetes panel 05/31/18 Range/Units 04:15 Sodium 137 (136-145) mEq/L Potassium 3.5 (3.5-5.1) mEq/L Chloride 103 (98-107) mEq/L Carbon Dioxide 25 (23-29) mEq/L BUN 7 L (8-23) mg/dL Creatinine 0.76 (0.60-1.20) mg/dL Glucose 109 H (70-105) mg/dL Calcium 8.5 L (8.6-10.3) mg/dL Calcium panel 05/31/18 Range/Units 04:15 Calcium 8.5 L (8.6-10.3) mg/dL Pituitary panel 05/31/18 Range/Units 04:15 Sodium 137 (136-145) mEq/L Potassium 3.5 (3.5-5.1) mEq/L Chloride 103 (98-107) mEq/L Carbon Dioxide 25 (23-29) mEq/L BUN 7 L (8-23) mg/dL Creatinine 0.76 (0.60-1.20) mg/dL Glucose 109 H (70-105) mg/dL Calcium 8.5 L (8.6-10.3) mg/dL Adrenal panel 05/31/18 Range/Units 04:15 Sodium 137 (136-145) mEq/L Potassium 3.5 (3.5-5.1) mEq/L Chloride 103 (98-107) mEq/L Carbon Dioxide 25 (23-29) mEq/L BUN 7 L (8-23) mg/dL Creatinine 0.76 (0.60-1.20) mg/dL Glucose 109 H (70-105) mg/dL Calcium 8.5 L (8.6-10.3) mg/dL - VTE Documentation of Mechanical Device: Intermittent pneumatic compression device Consult Discharge Plan - Plan Referrals: Albertina Huerta MD [Primary Care Provider] - <Virgil Hernandez - Last Filed: 06/02/18 08:53> Date of Encounter: 05/31/18 Objective Vital Signs - Last 8 Hours Temp Pulse Resp BP Pulse Ox 06/02/18 07:07 98.3 F 104 18 154/87 95 06/02/18 05:19 99.2 F 114 18 155/93 90 06/02/18 03:02 99.9 F H 126 22 06/02/18 01:32 99.9 F H 118 22 06/02/18 01:19 99.6 F 137 17 137/75 91 Intake and Output 06/01/18 06/02/18 06/02/18 23:59 07:59 15:59 Intake Total 250 / 250 Balance 250 / 250 Intake: IV Fluids 250 / 250 Vancocin 1,250 MG In 0.9 % 250 / 250 Sodium Chloride 250 ML @ 166.67 mls/hr IVPB Q24H [facility] Rx#: [id number] Other: # Urine Diapers 1 1 Weight 76.1 kg Blood Glucose* 103 99 Patient Weight 06/02/18 23:59 Weight 76.1 kg - Labs 06/01/18 04:59 06/01/18 04:59 - Attending Attestation I examined this patient and my medical decision-making was reviewed with the Resident Physician. I agree with the documented findings, disposition and treatment plan as described except to the extent set forth below. The patient is seen and evaluated with resident and the clinical nurse practitioner in the intensive care unit. I had a discussion with 3 family members concerning the risks and benefits of percutaneous endoscopic gastrostomy tube feeding placement. The patient's disorientation and dementia makes placement of the PEG tube problematic. There is a risk of dislodgment by the patient. The family has decided to proceed with PEG tube placement. We will schedule this for tomorrow. Virgil Hernandez MD FACS
[2018-05-31] MEDS: Pantoprazole 40 MG VIAL IVP SCH (09:01)
[2018-05-31] MEDS: Levothyroxine Sodium 100 MCG VIAL IVP SCH (09:01)
[2018-05-31] MEDS: Nystatin POWDER 30 GM BOTTLE TP SCH ×2 (09:10→16:18)
--- NOTE | 2018-05-31 13:17 | Pulmonology Progress Note ---
<KevinAnurag M - Last Filed: 05/31/18 16:55> Date of Encounter: 05/31/18 Objective PUL Vital signs: Last Vital Signs Temp 99.0 F 05/31/18 11:18 Pulse 115 05/31/18 12:00 Resp 11 05/31/18 12:00 BP 150/79 05/31/18 12:00 Pulse Ox 96 05/31/18 12:00 Results - Laboratory Findings CBC and BMP: 05/31/18 04:15 05/31/18 04:15 ABG ABG pH 7.37 pH Units (7.32-7.45) 05/26/18 05:23 ABG pCO2 38 mmHg (35-45) 05/26/18 05:23 ABG pO2 107 mmHg (85-104) H 05/26/18 05:23 ABG O2 Saturation 98 % (95-98) 05/26/18 05:23 PT/INR, D-dimer PT 18.8 Seconds (9.4-12.1) H 05/14/18 06:51 Abnormal lab findings: Abnormal lab results WBC 12.7 K/mcL (4.3-11.1) H 05/31/18 04:15 RBC 3.49 M/mcL (3.82-4.97) L 05/31/18 04:15 Hgb 9.9 g/dL (11.5-15.4) L 05/31/18 04:15 Hct 31.3 % (35.3-44.9) L 05/31/18 04:15 RDW 16.7 % (11.5-14.5) H 05/31/18 04:15 Plt Count 441 K/mcL (140-400) H 05/31/18 04:15 Band Neutrophils % 10.0 % (0-4) H 05/14/18 06:57 Monocytes # 1.4 K/mcL (0.0-1.3) H 05/31/18 04:15 Nucleated RBCs/100 WBC 0.1 /100 WBC (0) H 05/18/18 03:15 Toxic Granulation Present (Not Present) A 05/16/18 03:00 Toxic Vacuolation Present (Not Present) A 05/15/18 03:15 Large Platelets Present (Not Present) A 05/26/18 04:20 Polychromasia 1+ (Not Present) A 05/14/18 03:26 Hypochromasia Present (Not Present) A 05/17/18 03:15 Poikilocytosis 1+ (Not Present) A 05/16/18 03:00 Anisocytosis 1+ (Not Present) A 05/26/18 04:20 Macrocytosis Present (Not Present) A 05/17/18 03:15 PT 18.8 Seconds (9.4-12.1) H 05/14/18 06:51 APTT 22.5 Seconds (26.0-36.0) L 05/14/18 06:51 ABG pO2 107 mmHg (85-104) H 05/26/18 05:23 ABG Base Excess -3 mEq/L (-2 to 3) L 05/26/18 05:23 BUN 7 mg/dL (8-23) L 05/31/18 04:15 Glucose 109 mg/dL (70-105) H 05/31/18 04:15 POC Glucose 111 mg/dL (70-99) H 05/31/18 11:08 Calcium 8.5 mg/dL (8.6-10.3) L 05/31/18 04:15 Venous Ioniz Calcium 1.05 mmol/L (1.15-1.35) L 05/28/18 05:13 Direct Bilirubin 0.3 mg/dL (0.0-0.2) H 05/14/18 02:57 Troponin I 0.07 ng/mL (< 0.04) H* 05/14/18 06:57 Albumin 2.4 g/dL (3.5-5.7) L 05/30/18 03:00 Globulin 4.0 g/dL (2.4-3.5) H 05/30/18 03:00 Albumin/Globulin Ratio 0.6 (1.1-2.2) L 05/30/18 03:00 Urine Clarity Cloudy (Clear) A 05/14/18 02:06 Urine Protein 30 mg/dL (Neg-Trace) H 05/14/18 02:06 Urine Bilirubin Small (Negative) H 05/14/18 02:06 Ur Leukocyte Esterase Large (Negative) H 05/14/18 02:06 Urine Microscopic RBC 3-5 per hpf (0-3) H 05/14/18 02:06 Urine Microscopic WBC 15-30 per hpf (0-3) H 05/14/18 02:06 Ur Squamous Epith Cells Moderate per lpf (None-Few) H 05/14/18 02:06 Urine Bacteria Moderate per hpf (None-Few) H 05/14/18 02:06 Ur Culture Indicated? YES (NO) A 05/14/18 02:06 Vancomycin Trough 16 mcg/mL (5-10) H 05/25/18 07:40 - Microbiology Findings Microbiology Findings: Microbiology, Last 48 Hours 05/29/18 13:00 Sputum Culture - Final Sputum Methicillin Resistant S.aureus 05/29/18 15:00 Urine Culture - Preliminary Urine,Catheterized Yeast Species 05/29/18 13:02 Blood Culture - Preliminary Central Venous Catheter Culture is incubating and being continuously monitored for growth. Final report to follow. 05/29/18 13:03 Blood Culture - Preliminary Peripheral Venipuncture Culture is incubating and being continuously monitored for growth. Final report to follow. 05/24/18 12:51 Blood Culture - Final Peripheral Venipuncture No growth. Final report. 05/24/18 12:51 Blood Culture - Final Peripheral Venipuncture No growth. Final report. - Clinical Findings Intake & Output: Intake & Output 05/30/18 05/31/18 05/31/18 23:59 07:59 15:59 Intake Total 250 / 250 1000 / 1000 0 / 0 Output Total 400 / 400 900 / 900 350 / 350 Balance -150 / -150 100 / 100 -350 / -350 Consult Discharge Plan - Plan Referrals: Albertina Huerta MD [Primary Care Provider] - - Attending Attestation I examined this patient and my medical decision-making was reviewed with the Resident Physician. I agree with the documented findings, disposition and treatment plan as described except to the extent set forth below. Patient seen and examined. Labs, radiology, chart personally reviewed. 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 She is risk for aspiration pneumonia and her condition could deteriorate and I have explained this to the family. Continue ICU monitoring for now. Cardiovascular: stable GI: Nutrition per dietary and GI prophylaxis per routine. Nutritional still a major problem and discussed with surgery team and plan to discuss this with the family Heme: DVT prophylaxis per routine ID: Patient completed the course of antibiotics and infectious disease consultation Renal; urine out put and renal funtion reviewed Endorcine: blood glucose is monitored Lines: all lines checked and no evidence of infections Skin: skin care to prevent pressure ulcers per nursing routine care <Troy Jarquin - Last Filed: 05/31/18 17:55> Date of Encounter: 05/31/18 Time of Encounter: 10:00 Assessment and Plan (1) Acute respiratory failure with hypoxia Current Visit: Yes Status: Acute - Currently resolved : s/p extubation (day 2) -she was in acute respiratory failure with hypoxia secondary to her pneumonia and was intubated for the second time. - patient recently completed her course of Abx : Vanc/Zosyn, - her most recent sputum culture (05/29) was positive for MRSA yesterday - she is currently on Vancomycin IV - as per ID continue Vancomycin IV. Goal trough ~ 15. -monitoring hemodynamic status (2) Delirium Current Visit: No Status: Acute - patient has a Hx of hyperactive delirium - PRN haldol if she gets delirious again (3) Healthcare-associated pneumonia Current Visit: Yes Status: Acute - Patient's sputum was positive for MRSA and Klebsiella on 05/14 - She underwent 2 weeks of Abx therapy (Vanc and Zosyn) - her Physical exam looks unremarkable: no decreased breath sounds, or wheezing appreciated - her new sputum culture (05/29) was positive for MRSA, - Patient is currently on day 2 of Vancocon 1250mg- as per ID continue Vancomycin IV. Goal trough ~15. (4) Septic shock Current Visit: Yes Status: Resolved -resolved -patient is currently not on pressors, she is not hypotensive, completed 2 weeks of Abx, does not meet the SIRS criteria currently. - keep monitoring patient's hemodynamic status. (5) Dementia Current Visit: Yes Status: Chronic - patient has a Hx of dementia - continue on her home medications Qualifiers: Dementia type: unspecified type Dementia behavioral disturbance: with behavioral disturbance Qualified Code(s): F03.91 - Unspecified dementia with behavioral disturbance (6) DVT prophylaxis Current Visit: No Status: Acute - SQ Lovenox 80mg q12h Subjective Principal diagnosis: Dehydration, sepsis, pneumonia Interval history: No acute events overnight. Her physical exam this morning was unremarkable. She opened her eyes but answers Yes/No to commands. Patient physical exam was unremarkable for any SOB, chest pain palpitations, Patient's family has decided that they want to go ahead with the PEG tube. The daughter understands the pros and cons laid out by Dr. Hernandez of having her mom on PEG tube and wants to go ahead with the procedure. Patient is on Lovenox for her DVT and will hold her Lovenox after her last dose tonight. Objective PUL Vital signs: Last Vital Signs Temp 99.0 F 05/31/18 11:18 Pulse 115 05/31/18 12:00 Resp 11 05/31/18 12:00 BP 150/79 05/31/18 12:00 Pulse Ox 96 05/31/18 12:00 General appearance: no acute distress, alert (non-agitated) Auscultation: bilateral: wheezes (mild bilateral wheezing) Percussion: bilateral: not dull Cardiovascular: regular rate and rhythm (- no gallops,murmurs ro rubs) Gastrointestinal: soft, non-tender, non-distended Extremities: pulses normal, no ischemia or petechiae, edema (1+ ) other (altered, no focal deficits , does not follow commands, MAHMOOD *4) Results - Laboratory Findings CBC and BMP: 05/31/18 04:15 05/31/18 04:15 ABG ABG pH 7.37 pH Units (7.32-7.45) 05/26/18 05:23 ABG pCO2 38 mmHg (35-45) 05/26/18 05:23 ABG pO2 107 mmHg (85-104) H 05/26/18 05:23 ABG O2 Saturation 98 % (95-98) 05/26/18 05:23 PT/INR, D-dimer PT 18.8 Seconds (9.4-12.1) H 05/14/18 06:51 Abnormal lab findings: Abnormal lab results WBC 12.7 K/mcL (4.3-11.1) H 05/31/18 04:15 RBC 3.49 M/mcL (3.82-4.97) L 05/31/18 04:15 Hgb 9.9 g/dL (11.5-15.4) L 05/31/18 04:15 Hct 31.3 % (35.3-44.9) L 05/31/18 04:15 RDW 16.7 % (11.5-14.5) H 05/31/18 04:15 Plt Count 441 K/mcL (140-400) H 05/31/18 04:15 Band Neutrophils % 10.0 % (0-4) H 05/14/18 06:57 Monocytes # 1.4 K/mcL (0.0-1.3) H 05/31/18 04:15 Nucleated RBCs/100 WBC 0.1 /100 WBC (0) H 05/18/18 03:15 Toxic Granulation Present (Not Present) A 05/16/18 03:00 Toxic Vacuolation Present (Not Present) A 05/15/18 03:15 Large Platelets Present (Not Present) A 05/26/18 04:20 Polychromasia 1+ (Not Present) A 05/14/18 03:26 Hypochromasia Present (Not Present) A 05/17/18 03:15 Poikilocytosis 1+ (Not Present) A 05/16/18 03:00 Anisocytosis 1+ (Not Present) A 05/26/18 04:20 Macrocytosis Present (Not Present) A 05/17/18 03:15 PT 18.8 Seconds (9.4-12.1) H 05/14/18 06:51 APTT 22.5 Seconds (26.0-36.0) L 05/14/18 06:51 ABG pO2 107 mmHg (85-104) H 05/26/18 05:23 ABG Base Excess -3 mEq/L (-2 to 3) L 05/26/18 05:23 BUN 7 mg/dL (8-23) L 05/31/18 04:15 Glucose 109 mg/dL (70-105) H 05/31/18 04:15 POC Glucose 111 mg/dL (70-99) H 05/31/18 11:08 Calcium 8.5 mg/dL (8.6-10.3) L 05/31/18 04:15 Venous Ioniz Calcium 1.05 mmol/L (1.15-1.35) L 05/28/18 05:13 Direct Bilirubin 0.3 mg/dL (0.0-0.2) H 05/14/18 02:57 Troponin I 0.07 ng/mL (< 0.04) H* 05/14/18 06:57 Albumin 2.4 g/dL (3.5-5.7) L 05/30/18 03:00 Globulin 4.0 g/dL (2.4-3.5) H 05/30/18 03:00 Albumin/Globulin Ratio 0.6 (1.1-2.2) L 05/30/18 03:00 Urine Clarity Cloudy (Clear) A 05/14/18 02:06 Urine Protein 30 mg/dL (Neg-Trace) H 05/14/18 02:06 Urine Bilirubin Small (Negative) H 05/14/18 02:06 Ur Leukocyte Esterase Large (Negative) H 05/14/18 02:06 Urine Microscopic RBC 3-5 per hpf (0-3) H 05/14/18 02:06 Urine Microscopic WBC 15-30 per hpf (0-3) H 05/14/18 02:06 Ur Squamous Epith Cells Moderate per lpf (None-Few) H 05/14/18 02:06 Urine Bacteria Moderate per hpf (None-Few) H 05/14/18 02:06 Ur Culture Indicated? YES (NO) A 05/14/18 02:06 Vancomycin Trough 16 mcg/mL (5-10) H 05/25/18 07:40 - Microbiology Findings Microbiology Findings: Microbiology, Last 48 Hours 05/29/18 13:00 Sputum Culture - Final Sputum Methicillin Resistant S.aureus 05/29/18 15:00 Urine Culture - Preliminary Urine,Catheterized Yeast Species 05/29/18 13:02 Blood Culture - Preliminary Central Venous Catheter Culture is incubating and being continuously monitored for growth. Final report to follow. 05/29/18 13:03 Blood Culture - Preliminary Peripheral Venipuncture Culture is incubating and being continuously monitored for growth. Final report to follow. 05/24/18 12:51 Blood Culture - Final Peripheral Venipuncture No growth. Final report. 05/24/18 12:51 Blood Culture - Final Peripheral Venipuncture No growth. Final report. - Clinical Findings Intake & Output: Intake & Output 05/30/18 05/31/18 05/31/18 23:59 07:59 15:59 Intake Total 250 / 250 1000 / 1000 0 / 0 Output Total 400 / 400 900 / 900 350 / 350 Balance -150 / -150 100 / 100 -350 / -350 - VTE Documentation of Mechanical Device: Intermittent pneumatic compression device
--- NOTE | 2018-05-31 13:22 | Event Note ---
Date of Encounter: 05/31/18 Time of Encounter: 13:00 Witnessed family meeting with Dr. Hernandez. Patient to have PEG placed tomorrow. Palliative care is not managing symptoms. Palliative care to sign off of service.
--- NOTE | 2018-05-31 16:06 | Infectious Disease Consult ---
Date of Encounter: 05/31/18 Time of Encounter: 16:06 Assessment and Plan (1) Septic shock Status: Acute Assessment and plan: The patient had three SIRS criteria plus hypotension requiring vasopressors, lactic acidosis, and GEORGI. Likely secondary to PNA. Improved. WBC normalized. Vasopressors off. Tachycardia persists. Lactic acidosis and GEORGI have resolved. Blood culture drawn 05/14/18 x 2 sets are negative. Repeat blood cultures drawn 05/24/18 are negative x 2 sets. Additional blood cultures drawn 05/29/18 are NGTD x 2 sets. (2) Healthcare-associated pneumonia Status: Acute Assessment and plan: Causative organism: MRSA and K. ozaenae. Likely secondary to recent healthcare exposure. CXR showed progressive bilateral asymmetrical pulmonary opacities concerning for developing edema vs. multifocal PNA. CT of the chest showed bilateral pleural effusions that were improved and bilateral lower lobe opacities with lower lobe consolidation and multifocal upper lobe bronchiolitis. Sputum culture 05/14/18 positive for MRSA and K. ozaenae. Treated with 14 days of Vanc and Zosyn and clinically improved. Repeat sputum culture 05/24/18 negative. Additional sputum culture obtained 05/29/18 positive for MRSA. Clinically, the patient appears improved. Not sure if this is a true infection vs. colonization. Will discuss with the pulmonary team. Etiology of recurrence of MRSA unclear since the patient had a negative sputum culture in between two positives. The patient does appear to have a very poor/non-existent cough, so this could be a source control issue. She may benefit from a bronch to ensure adequate sputum clearance. Continue Vancomycin IV. Pharmacy to dose. Goal trough ~15. Duration of treatment depends on the clinical picture, but likely a total of 21- 28 days, depending on whether or not the patient gets a bronch. Based on previous susceptibilities, the patient can likely be transitioned to PO/PEG tube antibiotics when ready for discharge. Monitor renal function and for drug toxicity and dose-adjust antibiotics. (3) Acute renal failure Status: Acute Assessment and plan: Likely secondary to septic shock. Resolved. Qualifiers: Acute renal failure type: unspecified Qualified Code(s): N17.9 - Acute kidney failure, unspecified (4) Acute respiratory failure with hypoxia Status: Acute Assessment and plan: Likely secondary to PNA. Resolved. (5) Lactic acidosis Status: Acute Assessment and plan: Likely secondary to sepsis. Resolved. (6) Anemia Status: Chronic Assessment and plan: Hgb stable around 9. No acute bleeding noted on exam. Further workup and management per the primary team. Qualifiers: Anemia type: unspecified type Qualified Code(s): D64.9 - Anemia, unspecified (7) Hypernatremia Status: Acute Assessment and plan: Likely secondary to dehydration. Resolved. (8) Elevated troponin Status: Acute Assessment and plan: Likely demand ischemia secondary to sepsis. (9) Dehydration Status: Acute Assessment and plan: Likely secondary to little to no PO intake x 48 hours. Improved. (10) Dementia Status: Chronic Assessment and plan: Baseline dementia worsened by hospital delirium and sepsis. CT head negative. Continue to monitor closely. Qualifiers: Dementia type: unspecified type Dementia behavioral disturbance: without behavioral disturbance Qualified Code(s): F03.90 - Unspecified dementia without behavioral disturbance (11) Status post Sunny's procedure Status: Acute Assessment and plan: Status post Sunny's procedure with sigmoid colectomy and colostomy 04/[address] Herrera secondary to colonic obstruction by a mass. Path negative for malignancy. Infectious Disease HPI - Data of Consult Patient: known to practice within the last 3 years Consult date: 05/31/18 Requesting Physician: Flynn Alva MD Primary Care Provider: Albertina Huerta MD - Consult Narrative Reason for consult: MRSA PNA History of present illness: Ms. 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 Herrera. The patient was admitted to the hospital May 14 for acute respiratory failure, septic shock, and pneumonia. We are consulted May 31 for further recommendations for MRSA pneumonia. Briefly, the patient 78-year-old female, well-known to the infectious disease service as we were consulted on her case during her most recent hospitalization. At that time, the patient was noted to have a colonic obstruction secondary to a mass. She went Torrez's procedure with sigmoid colectomy with colostomy. He initially did well postoperatively, but redevelops leukocytosis [address] abdomen and pelvis showed findings consistent with an ileus and some ascites, but no other acute intra- abdominal process. CT of chest showed bilateral upper lobe nodular opacities, concerning for infectious process. She was initially treated with vancomycin and Zosyn, but vancomycin was discontinued due to lack of MRSA on cultures at that time. The patient completed an 11 day course of Zosyn and clinically improved, although her mental status did not return back to baseline prior to discharge. She was discharged to a local extended care facility to complete rehabilitation services. Apparently, the patient's mental status had improved somewhat, but on the day of admission the patient was noted to be in acute respiratory distress with altered mental status. Upon arrival to the ER, she was tachycardic and tachypneic with hypoxia and hypotension. Laboratory studies revealed leukocytosis with bandemia. She had lactic acidosis and acute kidney injury. Her sodium level was markedly elevated at 168. Troponin was mildly elevated at 0.07. LFTs were normal. She had a CT of the head that was negative. Chest x-ray showed progressive bilateral asymmetrical pulmonary opacities concerning for developing edema versus multifocal pneumonia. She had a CT of the chest, abdomen, and pelvis that showed bilateral pleural effusions that were improved and bilateral lower lobe opacities with lower lobe consolidation and a multifocal upper lobe bronchiolitis as well as postsurgical changes in the abdomen and ascites. Her urinalysis was positive for pyuria, but the culture only grew out Beatris albicans. Sputum culture was positive for MRSA and Klebsiella ozaenae. Blood cultures were obtained 2 sets and were negative. Due to the patient's impending respiratory failure, she was intubated. She was paced on Levophed and vasopressin for blood pressure support. Her fluid deficit was corrected with IV fluids. She had a central line placed as well. She was started empirically on Vanco and Zosyn and admitted to the intensive care unit for further evaluation. Since admission, the patient's white blood cell count initially normalized. She was extubated on May 20. She did complain of some right upper quadrant abdominal pains a gallbladder ultrasound was obtained that showed cholelithiasis without cholecystitis. The vasopressors were weaned off. She did well until May 23 when she required reintubation. Her chest x-ray at that time showed persistent air space and residual opacities bilaterally with likely some improvement to the consolidation in the bilateral lower lobes. Repeat sputum culture on 05/24/18 was negative. Repeat blood cultures on 05/24/18 were negative 2 sets. She had a repeat CT of the head on 2517 that was negative. Low-grade temp on 05/25/18 of 100.7. She had a Doppler study of the right lower extremity that showed an acute SVT right SFA and popliteal vein. Her acute kidney injury and lactic acidosis resolved. For an unknown reason, urine , blood, and sputum cultures were obtained again on 05/29/18. There culture again grew out [place] and the patient received 3 days of IV fluconazole. Repeat blood cultures on 05/29/18 are no growth to date. Repeat sputum culture obtained 05/29/18 is positive for MRSA. She was restarted on IV vancomycin. Speech therapy saw the patient and deemed her unable to take anything by mouth. Gen. surgery was then consulted to assist with PEG tube placement per the family 's request. Should repeat chest x-ray today that showed stable cardiopulmonary status including diffuse airspace opacities in bilateral effusions. Today, the patient's white blood cell count is 12.7 thousand with neutrophilic predominance. She will tachycardic with heart rate 100s. Her acute kidney injury has resolved. We have been asked to evaluate and make further recommendations. During my exam today, the patient's vital status precludes her ability to primary with any information regarding the events leading up to her hospitalization or review of systems information. I did discuss the case with the pulmonary team and the primary nurse who endorsed a history as stated above. There is no family at the bedside. CC: Flynn Alva MD Past Med Surg Social Fam HX - Past Medical History Source: old records reviewed, nursing notes reviewed Medical history: hyperlipidemia, hypertension, thyroid disease, venous stasis, other Psychiatric history: other - Past Surgical History Surgical History: colectomy, colostomy Additional surgical history: Sunny's procedure - Social History Smoking Status: Never smoker Smokeless Tobacco Status: No Alcohol use: none Drug use: none Infectious Disease-CN:Meds Aspirin [Lo-Dose Aspirin EC] 81 mg PO DAILY 04/18/18 [History] Citalopram [CeleXA] 30 mg PO DAILY 04/18/18 [History] Donepezil HCl [Aricept] 10 mg PO HS 04/18/18 [History] Levothyroxine [Synthroid] 100 mcg PO DAILY 04/18/18 [History] Simvastatin [Zocor] 20 mg PO DAILY 04/18/18 [History] Cholecalciferol (D-3) [Vitamin D] 1,000 unit PO DAILY tablet 05/10/18 [Rx] Multivit/Ca/Min/Fe/FA [Thera M Plus] 1 tab PO DAILY tablet 05/10/18 [Rx] Tamsulosin [Flomax] 0.4 mg PO DAILY capsule 05/10/18 [Rx] traZODone [TraZODone] 50 mg PO HS tablet 05/10/18 [Rx] Amlodipine Besylate 10 mg PO DAILY 05/14/18 [History] Hydrocodone/Acetaminophen [Hydrocodon-Acetamin 7.5-325/15] 15 ml PO Q8H PRN [History] LORazepam Oral Conc [Ativan Oral Conc] 1 mg SL Q8H PRN 05/14/18 [History] 3 Allergy/AdvReac Type Severity Reaction Status Date / Time No Known Allergies Allergy Verified 04/20/17 08:49 ROS unobtainable: due to mental status Exam - Constitutional Vitals: Temp Pulse Resp BP Pulse Ox 99.4 F 112 18 157/91 97 05/31/18 15:45 05/31/18 14:00 05/31/18 15:35 05/31/18 14:00 05/31/18 15:35 General appearance: cooperative, no acute distress, thin - Head Head exam: Present: atraumatic, normal inspection, normocephalic - Eye Eye exam: Present: EOMI, normal appearance, PERRL Pupils: Present: normal accommodation - ENT ENT exam: Present: mucous membranes dry - Neck Neck exam: Present: normal inspection - Respiratory Respiratory exam: Present: CTAB. Absent: rales, respiratory distress, rhonchi, wheezes - Cardiovascular Cardiovascular exam: Present: +S1, +S2, tachycardia. Absent: irregular rhythm - GI/Abdominal GI/Abdominal exam: Present: normal bowel sounds, soft. Absent: distended, tenderness Additional comments: Midline surgical scar is well-healed. Colostomy noted to the LLQ with small amount of liquid green stool noted in the collection bag. Norton catheter noted to be draining clear yellow urine. - Extremities Exam Extremities exam: Present: normal inspection. Absent: joint swelling, pedal edema, tenderness - Neurological Exam Neurological exam: Present: altered, no focal deficits (MAHMOOD x 4, but does not follow commands.) Additional comments: Non-verbal. - Skin Skin exam: Present: dry, intact, normal color, warm Infectious Disease CN: Results - Labs CBC & Chem 7: 05/31/18 04:15 05/31/18 04:15 Cultures: Cultures 05/29/18 13:00 Sputum Culture - Final Sputum Methicillin Resistant S.aureus 05/29/18 15:00 Urine Culture - Preliminary Urine,Catheterized Yeast Species 05/29/18 13:02 Blood Culture - Preliminary Central Venous Catheter Culture is incubating and being continuously monitored for growth. Final report to follow. 05/29/18 13:03 Blood Culture - Preliminary Peripheral Venipuncture Culture is incubating and being continuously monitored for growth. Final report to follow. 05/24/18 12:51 Blood Culture - Final Peripheral Venipuncture No growth. Final report. 05/24/18 12:51 Blood Culture - Final Peripheral Venipuncture No growth. Final report. 05/24/18 14:10 Sputum Culture - Final Sputum 05/24/18 14:10 Urine Culture - Final Urine,[place] Beat[place] albicans 05/14/18 23:30 Sputum Culture - Final Sputum Methicillin Resistant S.aureus Klebsiella ozaenae - VTE Documentation of Mechanical Device: Intermittent pneumatic compression device Consult Discharge Plan - Plan Referrals: Albertina Huerta MD [Primary Care Provider] -
--- NOTE | 2018-05-31 19:27 | Anesthesia Evaluation PreOp ---
Date of Encounter: 05/31/18 Time of Encounter: 19:30 - Past History Planned Operation: PEG Tube Placement Cardiac History: HTN, Hyperlipidemia, Other (Anemia chronic disease) Pulmonary History: Other (Acute Respiratory Failure Aspiration Pneumonia now extubated) NEONATAL SURGEON History: Other (Dementia, Encepalopathy) Other Medical History: Thyroid Anesthesia History: No Prior Anesthetic Complications, Past Anesthesia (Torrez' s Pouch ) Alcohol Use: none Drug use: none Medications and Allergies Aspirin [Lo-Dose Aspirin EC] 81 mg PO DAILY 04/18/18 [History] Citalopram [CeleXA] 30 mg PO DAILY 04/18/18 [History] Donepezil HCl [Aricept] 10 mg PO HS 04/18/18 [History] Levothyroxine [Synthroid] 100 mcg PO DAILY 04/18/18 [History] Simvastatin [Zocor] 20 mg PO DAILY 04/18/18 [History] Cholecalciferol (D-3) [Vitamin D] 1,000 unit PO DAILY tablet 05/10/18 [Rx] Multivit/Ca/Min/Fe/FA [Thera M Plus] 1 tab PO DAILY tablet 05/10/18 [Rx] Tamsulosin [Flomax] 0.4 mg PO DAILY capsule 05/10/18 [Rx] traZODone [TraZODone] 50 mg PO HS tablet 05/10/18 [Rx] Amlodipine Besylate 10 mg PO DAILY 05/14/18 [History] Hydrocodone/Acetaminophen [Hydrocodon-Acetamin 7.5-325/15] 15 ml PO Q8H PRN [History] LORazepam Oral Conc [Ativan Oral Conc] 1 mg SL Q8H PRN 05/14/18 [History] 3 Allergy/AdvReac Type Severity Reaction Status Date / Time No Known Allergies Allergy Verified 04/20/17 08:49 - Meds/Allergy Pre-op Review Medications Reviewed: Yes Allergies Reviewed: Yes Beta Blockers on Current Med List: No Anesthesia Results - Labs 05/31/18 04:15 05/31/18 04:15 Laboratory Tests 05/14/18 05/31/18 05/31/18 06:51 04:15 04:15 Hgb 9.9 L Hct 31.3 L Plt Count 441 H PT 18.8 H INR 1.7 APTT 22.5 L Sodium 137 Potassium 3.5 BUN 7 L Creatinine 0.76 - Imaging EKG: report reviewed (Sinus Tach) Additional studies: ECHO EF 65%, mod tricuspid regurge, moderate pulmonary htn Anesthesia Exam Vital Signs/O2 Sat/Glucose, Most Current Temp Pulse Resp BP Pulse Ox 05/31/18 18:00 117 9 159/88 96 05/31/18 17:00 117 9 159/88 96 05/31/18 16:00 101 22 144/98 96 05/31/18 15:45 99.4 F 05/31/18 15:35 18 97 Height: 5'1 Weight: 176 lbs NPO (# of Hours): MN Pain Scale: 0 - HEENT Pupil (Motor): Pupils equal, EOMI Mallampati: II Oral Opening: Greater than 3 - NEONATAL SURGEON LOC: Unable to assess NEONATAL SURGEON Motor: Normal RUE, Normal LUE, Normal RLE, Normal LLE, Normal Face NEONATAL SURGEON Sensory: Normal: RUE, LUE, RLE, LLE, Face - Cardiac Rhythm: Regular Murmur: None JVD: No Carotid Bruit: No - Pulmonary Breath Sounds: bilateral Clear Respiratory Effort: Symmetrical Anesthesia Assess/Plan ASA Score: 3 (HTN Dementia Thyroid Disease Extubated after Acute Respiratory Failure from Aspiration/Septic Shock/Acute Renal Failure) Modified Austin Scale for Level of Consciousness: Cooperative, oriented, and tranquil Anesthetic Plan: General, MAC Monitoring Plan: Standard Monitors Recovery Plan: ICU (Discussed MAC, possible GA with POA, risks and benefits, agrees to proceed)
[2018-05-31] MEDS: OXYCODONE Oral CONC 10 MG/0.5 ML ORAL.SYG SL PRN (20:18)
[2018-06-01] MEDS: Ipratropium/Albuterol Neb 3 ML IH SCH ×3 (03:41→11:04)
[2018-06-01 05:19] LABS: Basophils % 0.3 %; Eosinophils # 0.1 K/mcL (0.0-0.6); Eosinophils % 0.8 %; Hematocrit 28.9 % (35.3-44.9); Hemoglobin 9.5 g/dL (11.5-15.4); Immature Granulocytes % 1.6 % (0-4); Lymphocytes # 2.5 K/mcL (0.6-4.6); Lymphocytes % 17.9 %; Mean Corpuscular HGB Conc 32.9 g/dL (31.6-35.5); Mean Corpuscular Hemoglobin 29.2 pg (28.0-33.3); Mean Corpuscular Volume 88.9 fL (83.0-100.0); Mean Platelet Volume 9.7 fL (9.4-12.4); Monocytes # 1.6 K/mcL (0.0-1.3); Monocytes % 11.5 %; Neutrophils # 9.5 K/mcL (1.6-8.9); Platelet Count 434 K/mcL (140-400); Red Blood Count 3.25 M/mcL (3.82-4.97); Red Cell Distribution Width 16.3 % (11.5-14.5); Segmented Neutrophils % 67.9 %
[2018-06-01 05:24] LABS: INR 1.6; Prothrombin Time 17.5 Seconds (9.4-12.1)
[2018-06-01 05:55] LABS: BUN/Creatinine Ratio 6 (6-26); Blood Urea Nitrogen 4 mg/dL (8-23); Calcium 8.1 mg/dL (8.6-10.3); Carbon Dioxide 25 mEq/L (23-29); Chloride 102 mEq/L (98-107); Glucose 123 mg/dL (70-105); Osmolality,Calculated 280 (280-300); Potassium 3.1 mEq/L (3.5-5.1); Sodium 136 mEq/L (136-145); eGFR For Non-African Americans > 60 (> 60)
[2018-06-01] MEDS ORDERED: 0.9 % Sodium Chloride 500 ML ONE (08:32)
[2018-06-01] MEDS: Nystatin POWDER 30 GM BOTTLE TP SCH ×3 (08:37→21:24)
--- NOTE | 2018-06-01 08:49 | Pulmonology Progress Note ---
<KevinAnurag M - Last Filed: 06/01/18 15:57> Date of Encounter: 06/01/18 Objective PUL Vital signs: Last Vital Signs Temp 99.6 F 06/01/18 15:16 Pulse 63 06/01/18 15:16 Resp 15 06/01/18 15:16 BP 144/82 06/01/18 15:16 Pulse Ox 94 06/01/18 15:16 Results - Laboratory Findings CBC and BMP: 06/01/18 04:59 06/01/18 04:59 ABG ABG pH 7.37 pH Units (7.32-7.45) 05/26/18 05:23 ABG pCO2 38 mmHg (35-45) 05/26/18 05:23 ABG pO2 107 mmHg (85-104) H 05/26/18 05:23 ABG O2 Saturation 98 % (95-98) 05/26/18 05:23 PT/INR, D-dimer PT 17.5 Seconds (9.4-12.1) H 06/01/18 04:59 Abnormal lab findings: Abnormal lab results WBC 13.9 K/mcL (4.3-11.1) H 06/01/18 04:59 RBC 3.25 M/mcL (3.82-4.97) L 06/01/18 04:59 Hgb 9.5 g/dL (11.5-15.4) L 06/01/18 04:59 Hct 28.9 % (35.3-44.9) L 06/01/18 04:59 RDW 16.3 % (11.5-14.5) H 06/01/18 04:59 Plt Count 434 K/mcL (140-400) H 06/01/18 04:59 Band Neutrophils % 10.0 % (0-4) H 05/14/18 06:57 Neutrophils # 9.5 K/mcL (1.6-8.9) H 06/01/18 04:59 Monocytes # 1.6 K/mcL (0.0-1.3) H 06/01/18 04:59 Nucleated RBCs/100 WBC 0.1 /100 WBC (0) H 05/18/18 03:15 Toxic Granulation Present (Not Present) A 05/16/18 03:00 Toxic Vacuolation Present (Not Present) A 05/15/18 03:15 Large Platelets Present (Not Present) A 05/26/18 04:20 Polychromasia 1+ (Not Present) A 05/14/18 03:26 Hypochromasia Present (Not Present) A 05/17/18 03:15 Poikilocytosis 1+ (Not Present) A 05/16/18 03:00 Anisocytosis 1+ (Not Present) A 05/26/18 04:20 Macrocytosis Present (Not Present) A 05/17/18 03:15 PT 17.5 Seconds (9.4-12.1) H 06/01/18 04:59 APTT 22.5 Seconds (26.0-36.0) L 05/14/18 06:51 ABG pO2 107 mmHg (85-104) H 05/26/18 05:23 ABG Base Excess -3 mEq/L (-2 to 3) L 05/26/18 05:23 Potassium 3.1 mEq/L (3.5-5.1) L 06/01/18 04:59 BUN 4 mg/dL (8-23) L 06/01/18 04:59 Glucose 123 mg/dL (70-105) H 06/01/18 04:59 POC Glucose 102 mg/dL (70-99) H 06/01/18 11:06 Calcium 8.1 mg/dL (8.6-10.3) L 06/01/18 04:59 Venous Ioniz Calcium 1.05 mmol/L (1.15-1.35) L 05/28/18 05:13 Direct Bilirubin 0.3 mg/dL (0.0-0.2) H 05/14/18 02:57 Troponin I 0.07 ng/mL (< 0.04) H* 05/14/18 06:57 Albumin 2.4 g/dL (3.5-5.7) L 05/30/18 03:00 Globulin 4.0 g/dL (2.4-3.5) H 05/30/18 03:00 Albumin/Globulin Ratio 0.6 (1.1-2.2) L 05/30/18 03:00 Urine Clarity Cloudy (Clear) A 05/14/18 02:06 Urine Protein 30 mg/dL (Neg-Trace) H 05/14/18 02:06 Urine Bilirubin Small (Negative) H 05/14/18 02:06 Ur Leukocyte Esterase Large (Negative) H 05/14/18 02:06 Urine Microscopic RBC 3-5 per hpf (0-3) H 05/14/18 02:06 Urine Microscopic WBC 15-30 per hpf (0-3) H 05/14/18 02:06 Ur Squamous Epith Cells Moderate per lpf (None-Few) H 05/14/18 02:06 Urine Bacteria Moderate per hpf (None-Few) H 05/14/18 02:06 Ur Culture Indicated? YES (NO) A 05/14/18 02:06 Vancomycin Trough 16 mcg/mL (5-10) H 05/25/18 07:40 - Microbiology Findings Microbiology Findings: Microbiology, Last 48 Hours 05/29/18 15:00 Urine Culture - Final Urine,Catheterized Beatris albicans 05/29/18 13:00 Sputum Culture - Final Sputum Methicillin Resistant S.aureus - Clinical Findings Intake & Output: Intake & Output 05/31/18 06/01/18 06/01/18 23:59 07:59 15:59 Intake Total 1250 / 1250 1000 / 1000 100 / 100 Output Total 250 / 250 550 / 550 230 / 230 Balance 1000 / 1000 450 / 450 -130 / -130 Weight 75 kg Consult Discharge Plan - Plan Referrals: Albertina Huerta MD [Primary Care Provider] - - Attending Attestation I examined this patient and my medical decision-making was reviewed with the Resident Physician. I agree with the documented findings, disposition and treatment plan as described except to the extent set forth below. Patient seen and examined. Labs, radiology, chart personally reviewed. Agree with resident's history and physical, assessment, plan with following comments: HOME LIGHTING ADVISER: Patient with confusion Pulmonary: Acceptable oxygenation and ventilation. I still suspect patient could have complications due to her multiple comorbidities. Cardiovascular: stable GI: Nutrition per dietary and GI prophylaxis per routine. Discussed with surgeon status post PEG tube placement. Patient remained hemodynamically stable and transferred to the floor. Discussed with family at the bedside. <Troy Jarquin - Last Filed: 06/01/18 22:06> Date of Encounter: 06/01/18 Time of Encounter: 08:00 Assessment and Plan (1) Acute respiratory failure with hypoxia Current Visit: Yes Status: Acute - Currently resolved : s/p extubation (day 3) - patient recently completed her course of Abx : Vanc/Zosyn, - her most recent sputum culture (05/29) was positive for MRSA yesterday - she is currently on Vancomycin IV - as per ID continue Vancomycin IV. Goal trough ~ 15. -monitoring hemodynamic status (2) Delirium Current Visit: No Status: Acute - patient has a Hx of hyperactive delirium - PRN haldol if she gets delirious again (3) Healthcare-associated pneumonia Current Visit: Yes Status: Acute - Patient's sputum was positive for MRSA and Klebsiella on 05/14 - She underwent 2 weeks of Abx therapy (Vanc and Zosyn) - her Physical exam looks unremarkable: no decreased breath sounds, or wheezing appreciated - her new sputum culture (05/29) was positive for MRSA, - As per ID continue Vancomycin IV. Goal trough ~15. (4) Acute DVT (deep venous thrombosis) Current Visit: Yes Status: Acute - patient's Venous Doppler showed acute thrombosis of the right superficial femoral vein and popliteal vein demonstrates . -on Lovenox 80mg SQ q12h Qualifiers: DVT location: lower extremity Affected thrombotic vein of extremity: popliteal Laterality: right Qualified Code(s): I82.431 - Acute embolism and thrombosis of right popliteal vein (5) Septic shock Current Visit: Yes Status: Resolved -resolved -patient is currently not on pressors, she is not hypotensive, completed 2 weeks of Abx, does not meet the SIRS criteria currently. - keep monitoring patient's hemodynamic status. (6) Dementia Current Visit: Yes Status: Chronic - patient has a Hx of dementia - continue on her home medications Qualifiers: Dementia type: unspecified type Dementia behavioral disturbance: with behavioral disturbance Qualified Code(s): F03.91 - Unspecified dementia with behavioral disturbance (7) DVT prophylaxis Current Visit: No Status: Acute - Lovenox Subjective Principal diagnosis: Dehydration, sepsis, pneumonia Interval history: No acute events overnight. Physical exam was unremarkable this morning. She underwent PEG tube placement today. We held her Lovenox prior to the PEG tube placement, and continued it after the procedure. Patient was hemodynamically stable after the PEG tube placement. She has restrain order for the next 72 hours to prevent any damage to her PEG tube owing to her Hx of dementia. Patient has currently been transferred from the ICU to the floor. Objective PUL Vital signs: Last Vital Signs Temp 99.4 F 06/01/18 07:33 Pulse 108 06/01/18 06:00 Resp 18 06/01/18 07:33 BP 124/79 06/01/18 06:00 Pulse Ox 99 06/01/18 07:33 General appearance: no acute distress, lethargic, asleep (s/p ) Auscultation: bilateral: clear Percussion: bilateral: not dull Cardiovascular: regular rate and rhythm (no gallops, murmrus or rubs) Gastrointestinal: soft, non-tender, non-distended Extremities: no cyanosis, pulses normal, no ischemia or petechiae Results - Laboratory Findings CBC and BMP: 06/01/18 04:59 06/01/18 04:59 ABG ABG pH 7.37 pH Units (7.32-7.45) 05/26/18 05:23 ABG pCO2 38 mmHg (35-45) 05/26/18 05:23 ABG pO2 107 mmHg (85-104) H 05/26/18 05:23 ABG O2 Saturation 98 % (95-98) 05/26/18 05:23 PT/INR, D-dimer PT 17.5 Seconds (9.4-12.1) H 06/01/18 04:59 Abnormal lab findings: Abnormal lab results WBC 13.9 K/mcL (4.3-11.1) H 06/01/18 04:59 RBC 3.25 M/mcL (3.82-4.97) L 06/01/18 04:59 Hgb 9.5 g/dL (11.5-15.4) L 06/01/18 04:59 Hct 28.9 % (35.3-44.9) L 06/01/18 04:59 RDW 16.3 % (11.5-14.5) H 06/01/18 04:59 Plt Count 434 K/mcL (140-400) H 06/01/18 04:59 Band Neutrophils % 10.0 % (0-4) H 05/14/18 06:57 Neutrophils # 9.5 K/mcL (1.6-8.9) H 06/01/18 04:59 Monocytes # 1.6 K/mcL (0.0-1.3) H 06/01/18 04:59 Nucleated RBCs/100 WBC 0.1 /100 WBC (0) H 05/18/18 03:15 Toxic Granulation Present (Not Present) A 05/16/18 03:00 Toxic Vacuolation Present (Not Present) A 05/15/18 03:15 Large Platelets Present (Not Present) A 05/26/18 04:20 Polychromasia 1+ (Not Present) A 05/14/18 03:26 Hypochromasia Present (Not Present) A 05/17/18 03:15 Poikilocytosis 1+ (Not Present) A 05/16/18 03:00 Anisocytosis 1+ (Not Present) A 05/26/18 04:20 Macrocytosis Present (Not Present) A 05/17/18 03:15 PT 17.5 Seconds (9.4-12.1) H 06/01/18 04:59 APTT 22.5 Seconds (26.0-36.0) L 05/14/18 06:51 ABG pO2 107 mmHg (85-104) H 05/26/18 05:23 ABG Base Excess -3 mEq/L (-2 to 3) L 05/26/18 05:23 Potassium 3.1 mEq/L (3.5-5.1) L 06/01/18 04:59 BUN 4 mg/dL (8-23) L 06/01/18 04:59 Glucose 123 mg/dL (70-105) H 06/01/18 04:59 POC Glucose 111 mg/dL (70-99) H 06/01/18 07:16 Calcium 8.1 mg/dL (8.6-10.3) L 06/01/18 04:59 Venous Ioniz Calcium 1.05 mmol/L (1.15-1.35) L 05/28/18 05:13 Direct Bilirubin 0.3 mg/dL (0.0-0.2) H 05/14/18 02:57 Troponin I 0.07 ng/mL (< 0.04) H* 05/14/18 06:57 Albumin 2.4 g/dL (3.5-5.7) L 05/30/18 03:00 Globulin 4.0 g/dL (2.4-3.5) H 05/30/18 03:00 Albumin/Globulin Ratio 0.6 (1.1-2.2) L 05/30/18 03:00 Urine Clarity Cloudy (Clear) A 05/14/18 02:06 Urine Protein 30 mg/dL (Neg-Trace) H 05/14/18 02:06 Urine Bilirubin Small (Negative) H 05/14/18 02:06 Ur Leukocyte Esterase Large (Negative) H 05/14/18 02:06 Urine Microscopic RBC 3-5 per hpf (0-3) H 05/14/18 02:06 Urine Microscopic WBC 15-30 per hpf (0-3) H 05/14/18 02:06 Ur Squamous Epith Cells Moderate per lpf (None-Few) H 05/14/18 02:06 Urine Bacteria Moderate per hpf (None-Few) H 05/14/18 02:06 Ur Culture Indicated? YES (NO) A 05/14/18 02:06 Vancomycin Trough 16 mcg/mL (5-10) H 05/25/18 07:40 - Microbiology Findings Microbiology Findings: Microbiology, Last 48 Hours 05/29/18 15:00 Urine Culture - Final Urine,Catheterized Beatris albicans 05/29/18 13:00 Sputum Culture - Final Sputum Methicillin Resistant S.aureus - Clinical Findings Intake & Output: Intake & Output 05/31/18 06/01/18 06/01/18 23:59 07:59 15:59 Intake Total 1250 / 1250 Output Total 250 / 250 550 / 550 Balance 1000 / 1000 -550 / -550 Weight 75 kg - VTE Documentation of Mechanical Device: Intermittent pneumatic compression device
[2018-06-01] MEDS: D5% in 0.45% NACL 1,000 ML IVC SCH (09:06)
[2018-06-01] MEDS: Pantoprazole 40 MG VIAL IVP SCH (09:07)
[2018-06-01] MEDS: Levothyroxine Sodium 100 MCG VIAL IVP SCH (09:07)
--- NOTE | 2018-06-01 12:05 | Infectious Disease Progress No ---
Date of Encounter: 06/01/18 Time of Encounter: 09:45 - Assessment and Plan (1) Septic shock Current Visit: Yes Status: Acute The patient had three SIRS criteria plus hypotension requiring vasopressors, lactic acidosis, and GEORGI. Likely secondary to PNA initially. Improved. WBC normalized. Vasopressors off. Lactic acidosis and GEORGI have resolved. She has re-developed tachycardia and leukocytosis and had a low-grade fever overnight. Etiology unclear at this point: PNA vs. other. Blood culture drawn 05/14/18 x 2 sets are negative. Repeat blood cultures drawn 05/24/18 are negative x 2 sets. Additional blood cultures drawn 05/29/18 are NGTD x 2 sets. (2) Healthcare-associated pneumonia Current Visit: Yes Status: Acute Causative organism: MRSA and K. ozaenae. Likely secondary to recent healthcare exposure. CXR showed progressive bilateral asymmetrical pulmonary opacities concerning for developing edema vs. multifocal PNA. CT of the chest showed bilateral pleural effusions that were improved and bilateral lower lobe opacities with lower lobe consolidation and multifocal upper lobe bronchiolitis. Sputum culture 05/14/18 positive for MRSA and K. ozaenae. Treated with 14 days of Vanc and Zosyn and clinically improved. Repeat sputum culture 05/24/18 negative. Additional sputum culture obtained 05/29/18 positive for MRSA. Clinically, the patient appears improved. Not sure if this is a true infection vs. colonization. She has developed leukocytosis, low-grade fever, and tachycardia overnight. Will discuss with the pulmonary team. Etiology of recurrence of MRSA unclear since the patient had a negative sputum culture in between two positives. The patient does appear to have a very poor/non-existent cough, so this could be a source control issue. She may benefit from a bronch to ensure adequate sputum clearance. Apparently there was a large amount of mucous noted when the patient had her PEG tube placed this morning as well. Continue Vancomycin IV. Pharmacy to dose. Goal trough ~15. Duration of treatment depends on the clinical picture, but likely a total of 21- 28 days, depending on whether or not the patient gets a bronch. Based on previous susceptibilities, the patient can likely be transitioned to PO/PEG tube antibiotics when ready for discharge. Monitor renal function and for drug toxicity and dose-adjust antibiotics. (3) Acute renal failure Current Visit: Yes Status: Acute Likely secondary to septic shock. Resolved. Qualifiers: Qualified Code(s): N17.9 - Acute kidney failure, unspecified (4) Acute respiratory failure with hypoxia Current Visit: Yes Status: Acute Likely secondary to PNA. Resolved. (5) Lactic acidosis Current Visit: Yes Status: Acute Likely secondary to sepsis. Resolved. (6) Anemia Current Visit: No Status: Chronic Hgb stable around 9. No acute bleeding noted on exam. Further workup and management per the primary team. Qualifiers: Qualified Code(s): D64.9 - Anemia, unspecified (7) Hypernatremia Current Visit: Yes Status: Resolved Likely secondary to dehydration. Resolved. (8) Elevated troponin Current Visit: Yes Status: Resolved Likely demand ischemia secondary to sepsis. (9) Dehydration Current Visit: Yes Status: Resolved Likely secondary to little to no PO intake x 48 hours. Improved. (10) Dementia Current Visit: No Status: Chronic Baseline dementia worsened by hospital delirium and sepsis. CT head negative. Continue to monitor closely. 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 Herrera secondary to colonic obstruction by a mass. Path negative for malignancy. - Subjective Interval history: Patient seen and examined. No acute events noted overnight. Status post PEG tube placement this morning. Per nursing, patient tolerated well, but now very drowsy. Patient does not verbalize or follow commands. Minimal colostomy output per nursing. Infect Dis PN-Objective Data - Labs CBC & Chem 7: 06/02/18 09:02 06/02/18 09:02 Labs: Laboratory Results - last 24 hr 05/31/18 05/31/18 05/31/18 04:20 15:20 19:39 WBC RBC Hgb Hct MCV MCH MCHC RDW Plt Count MPV Immature Gran % Seg Neutrophils % Lymphocytes % Monocytes % Eosinophils % Basophils % Neutrophils # Lymphocytes # Monocytes # Eosinophils # Basophils # PT INR Sodium Potassium Chloride Carbon Dioxide BUN Creatinine Est GFR ( Amer) Est GFR (Non-Af Amer) BUN/Creatinine Ratio Glucose POC Glucose 90 103 H 93 Calculated Osmolality Calcium 06/01/18 06/01/18 06/01/18 00:12 04:59 04:59 WBC 13.9 H RBC 3.25 L Hgb 9.5 L Hct 28.9 L MCV 88.9 MCH 29.2 MCHC 32.9 RDW 16.3 H Plt Count 434 H MPV 9.7 Immature Gran % 1.6 Seg Neutrophils % 67.9 Lymphocytes % 17.9 Monocytes % 11.5 Eosinophils % 0.8 Basophils % 0.3 Neutrophils # 9.5 H Lymphocytes # 2.5 Monocytes # 1.6 H Eosinophils # 0.1 Basophils # 0.0 PT INR Sodium 136 Potassium 3.1 L Chloride 102 Carbon Dioxide 25 BUN 4 L Creatinine 0.63 Est GFR ( Amer) > 60 Est GFR (Non-Af Amer) > 60 BUN/Creatinine Ratio 6 Glucose 123 H POC Glucose 92 Calculated Osmolality 280 Calcium 8.1 L 06/01/18 06/01/18 06/01/18 04:59 07:16 11:06 WBC RBC Hgb Hct MCV MCH MCHC RDW Plt Count MPV Immature Gran % Seg Neutrophils % Lymphocytes % Monocytes % Eosinophils % Basophils % Neutrophils # Lymphocytes # Monocytes # Eosinophils # Basophils # PT 17.5 H INR 1.6 Sodium Potassium Chloride Carbon Dioxide BUN Creatinine Est GFR ( Amer) Est GFR (Non-Af Amer) BUN/Creatinine Ratio Glucose POC Glucose 111 H 102 H Calculated Osmolality Calcium Cultures: Cultures 05/29/18 15:00 Urine Culture - Final Urine,Catheterized Beatris albicans 05/29/18 13:00 Sputum Culture - Final Sputum Methicillin Resistant S.aureus 05/29/18 13:02 Blood Culture - Preliminary Central Venous Catheter Culture is incubating and being continuously monitored for growth. Final report to follow. 05/29/18 13:03 Blood Culture - Preliminary Peripheral Venipuncture Culture is incubating and being continuously monitored for growth. Final report to follow. 05/24/18 12:51 Blood Culture - Final Peripheral Venipuncture No growth. Final report. 05/24/18 12:51 Blood Culture - Final Peripheral Venipuncture No growth. Final report. 05/24/18 14:10 Sputum Culture - Final Sputum 05/24/18 14:10 Urine Culture - Final Urine,[place] Beatris albicans 05/14/18 23:30 Sputum Culture - Final Sputum Methicillin Resistant S.aureus Klebsiella ozaenae - Impressions Impressions Chest X-Ray 05/31/18 05:00 IMPRESSION: 1. Interval removal of all lines and tubes. 2. Stable cardiopulmonary status including diffuse airspace opacities and bilateral effusions. D/ / 05/31/2018 08:11:59 Savi Daniel MD / earnold Interpreting Provider: Savi Daniel MD Exam - Constitutional Vitals: Temp Pulse Resp BP Pulse Ox 98.9 F 112 15 140/93 97 06/01/18 11:21 06/01/18 11:00 06/01/18 11:05 06/01/18 11:00 06/01/18 11:05 General appearance: no acute distress, thin, no cooperative - Head Head exam: Present: atraumatic, normal inspection, normocephalic - Eye Additional comments: Resistant to passive eye opening. - ENT ENT exam: Present: mucous membranes dry - Neck Neck exam: Present: normal inspection Additional comments: Dressing noted to the right neck with transparent/guaze dressing C/D/I. - Respiratory Respiratory exam: Present: decreased breath sounds (Poor respiratory effort.) Additional comments: Moist, weak cough noted. - Cardiovascular Cardiovascular exam: Present: +S1, +S2, tachycardia. Absent: irregular rhythm - GI/Abdominal GI/Abdominal exam: Present: normal bowel sounds, soft, tenderness (Grimmaces with palpation of the LUQ). Absent: distended Additional comments: Scant liquid stool noted in the colostomy bag. PEG tube noted to the epigastric region. - Extremities Exam Extremities exam: Present: normal inspection. Absent: joint swelling, pedal edema, tenderness - Neurological Exam Neurological exam: Present: altered (No-verbal, does not follow commands or participate in exam.) - Skin Skin exam: Present: dry, intact, normal color, warm - VTE Documentation of Mechanical Device: Intermittent pneumatic compression device Consult Discharge Plan - Plan Referrals: Albertina Huerta MD [Primary Care Provider] - - Attending Attestation I examined this patient and my medical decision-making was reviewed with the Resident Physician. I agree with the documented findings, disposition and treatment plan as described except to the extent set forth below.
[2018-06-01] MEDS ORDERED: MethylPREDNISolone 40 MG/ML VIAL ONE (13:22)
[2018-06-01] MEDS ORDERED: *HR* FentaNYL (PF) 100 MCG/2 ML VIAL ONE (13:56)
[2018-06-01] MEDS ORDERED: *HR* FentaNYL (PF) 100 MCG/2 ML VIAL IVP ONE (13:59)
[2018-06-01] MEDS ORDERED: Desitin (Zinc Oxide) 56 GM TUBE TP PRN (15:04)
[2018-06-01] MEDS: OXYCODONE Oral CONC 10 MG/0.5 ML ORAL.SYG SL PRN (17:58)
[2018-06-01] MEDS ORDERED: *HR* Enoxaparin 80 MG/0.8 ML SYRINGE SQ SCH (18:00)
[2018-06-01] MEDS: *HR* Enoxaparin 80 MG/0.8 ML SYRINGE SQ SCH (18:06)
[2018-06-01] MEDS: Ipratropium/Albuterol Neb 3 ML IH PRN (20:54)
[2018-06-01] MEDS ORDERED: *HR* Propofol 200 MG/20 ML VIAL IVP ONE (21:57)
[2018-06-01] MEDS: Haloperidol Lactate 5 MG/ML VIAL IVP PRN (22:04)
[2018-06-02] MEDS: OXYCODONE Oral CONC 10 MG/0.5 ML ORAL.SYG SL PRN ×3 (00:09→22:20)
[2018-06-02] MEDS ORDERED: Ziprasidone injection 20 MG/ML VIAL IM ONE (02:05)
[2018-06-02] MEDS ORDERED: 0.9 % Sodium Chloride 1,000 ML IVC SCH (02:15)
[2018-06-02] MEDS ORDERED: *HR* Metoprolol 5 MG/5 ML VIAL IVP ONE (03:30)
[2018-06-02] MEDS: *HR* Enoxaparin 80 MG/0.8 ML SYRINGE SQ SCH ×2 (05:52→18:06)
[2018-06-02] MEDS ORDERED: Enoxaparin Weight Dosing SQ SCH (06:00)
--- NOTE | 2018-06-02 08:23 | Event Note ---
<Angelica Hunt - Last Filed: 06/02/18 08:20> Date of Encounter: 06/02/18 Time of Encounter: 07:[address] Hernandez. OK to use PEG tube. May begin trickle feeds or slow rate (25ml or less) per dietitian recommendations and management. 200 ML free water flushes Q8 hours and after all medication administration. Apply abdominal binder and keep in place at all times to protect Peg. Surgery will sign off at this time. Thank you for allowing us to participate in Ms. Stinson's care. Please call or reconsult for further questions or needs. No outpatient surgical follow-up is needed <Virgil Hernandez - Last Filed: 06/02/18 09:33> Date of Encounter: 06/02/18 The patient is seen and evaluated on morning rounds with the clinical nurse practitioner. The PEG tube is intact. Dietary consultation for tube feed initiation is recommended. The dietitian is cleared to start the tube feedings and advance as tolerated. The ostomy is functioning normally. The midline is healed. Please reconsult if there are any further questions with her care. Virgil Hernandez MD FACS
[2018-06-02] MEDS: Nystatin POWDER 30 GM BOTTLE TP SCH ×3 (08:28→20:26)
[2018-06-02] MEDS ORDERED: Pantoprazole 40 MG VIAL IVP SCH (09:00)
[2018-06-02 09:13] LABS: Basophils # 0.1 K/mcL (0.0-0.2); Basophils % 0.3 %; Eosinophils % 0.1 %; Hematocrit 32.8 % (35.3-44.9); Hemoglobin 10.6 g/dL (11.5-15.4); Immature Granulocytes % 1.4 % (0-4); Immature Platelets 1.2 % (1.1-6.1); Lymphocytes # 2.8 K/mcL (0.6-4.6); Lymphocytes % 16.3 %; Mean Corpuscular HGB Conc 32.3 g/dL (31.6-35.5); Mean Corpuscular Volume 89.9 fL (83.0-100.0); Mean Platelet Volume 9.6 fL (9.4-12.4); Monocytes # 1.2 K/mcL (0.0-1.3); Monocytes % 6.8 %; Platelet Count 502 K/mcL (140-400); Red Blood Count 3.65 M/mcL (3.82-4.97); Red Cell Distribution Width 16.3 % (11.5-14.5); Segmented Neutrophils % 75.1 %
[2018-06-02 09:33] LABS: BUN/Creatinine Ratio 7 (6-26); Blood Urea Nitrogen 5 mg/dL (8-23); Calcium 8.1 mg/dL (8.6-10.3); Carbon Dioxide 24 mEq/L (23-29); Chloride 105 mEq/L (98-107); Glucose 111 mg/dL (70-105); Magnesium 1.3 mg/dL (1.6-2.6); Osmolality,Calculated 280 (280-300); Potassium 3.6 mEq/L (3.5-5.1); Sodium 136 mEq/L (136-145); eGFR For Non-African Americans > 60 (> 60)
--- NOTE | 2018-06-02 11:58 | Infectious Disease Progress No ---
Date of Encounter: 06/02/18 Time of Encounter: 11:56 - Assessment and Plan (1) Septic shock Current Visit: Yes Status: Acute The patient had three SIRS criteria plus hypotension requiring vasopressors, lactic acidosis, and GEORGI. Likely secondary to PNA initially. Improved. WBC normalized. Vasopressors off. Lactic acidosis and GEORGI have resolved. She has re-developed tachycardia and leukocytosis and had a low-grade fever overnight. WBC continues to worsen this morning. Etiology unclear at this point: PNA vs. other. Blood culture drawn 05/14/18 x 2 sets are negative. Repeat blood cultures drawn 05/24/18 are negative x 2 sets. Additional blood cultures drawn 05/29/18 are NGTD x [address] of the chest, abdomen, and pelvis with IV and PO/PEG contrast. Repeat blood cultures x 2 sets now. Check amylase, lipase, and LFTs. Check procalcitonin. Continue Vancomycin IV. Pharmacy to dose. Goal trough ~15. Start Zosyn 3.375 grams IV Q8H. (2) Healthcare-associated pneumonia Current Visit: Yes Status: Acute Causative organism: MRSA and K. ozaenae. Likely secondary to recent healthcare exposure. CXR showed progressive bilateral asymmetrical pulmonary opacities concerning for developing edema vs. multifocal PNA. CT of the chest showed bilateral pleural effusions that were improved and bilateral lower lobe opacities with lower lobe consolidation and multifocal upper lobe bronchiolitis. Sputum culture 05/14/18 positive for MRSA and K. ozaenae. Treated with 14 days of Vanc and Zosyn and clinically improved. Repeat sputum culture 05/24/18 negative. Additional sputum culture obtained 05/29/18 positive for MRSA. Clinically, the patient's respiratory status appears to have improved. Not sure if this is a true infection vs. colonization. She has developed leukocytosis, low-grade fever, and tachycardia. Get CT chest to evaluate. Etiology of recurrence of MRSA unclear since the patient had a negative sputum culture in between two positives. The patient does appear to have a very poor/non-existent cough, so this could be a source control issue. She may benefit from a bronch to ensure adequate sputum clearance. Apparently there was a large amount of mucous noted when the patient had her PEG tube placed as well. Continue Vancomycin IV. Pharmacy to dose. Goal trough ~15. Duration of treatment depends on the clinical picture, but likely a total of 21- 28 days, depending on whether or not the patient gets a bronch. Based on previous susceptibilities, the patient can likely be transitioned to PO/PEG tube antibiotics when ready for discharge. Monitor renal function and for drug toxicity and dose-adjust antibiotics. (3) Acute renal failure Current Visit: Yes Status: Acute Likely secondary to septic shock. Resolved. Qualifiers: Acute renal failure type: unspecified Qualified Code(s): N17.9 - Acute kidney failure, unspecified (4) Acute respiratory failure with hypoxia Current Visit: Yes Status: Acute Likely secondary to PNA. Resolved. (5) Lactic acidosis Current Visit: Yes Status: Acute Likely secondary to sepsis. Resolved. (6) Anemia Current Visit: Yes Status: Chronic Hgb stable around 10. No acute bleeding noted on exam. Further workup and management per the primary team. Qualifiers: Anemia type: unspecified type Qualified Code(s): D64.9 - Anemia, unspecified (7) Hypernatremia Current Visit: Yes Status: Resolved Likely secondary to dehydration. Resolved. (8) Elevated troponin Current Visit: Yes Status: Resolved Likely demand ischemia secondary to sepsis. (9) Dehydration Current Visit: Yes Status: Resolved Likely secondary to little to no PO intake x 48 hours. Improved. (10) Dementia Current Visit: No Status: Chronic Baseline dementia worsened by hospital delirium and sepsis. CT head negative. Continue to monitor closely. 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 Herrera secondary to colonic obstruction by a mass. Path negative for malignancy. - Subjective Interval history: Patient seen and examined. Patient was agitated overnight, received IV Geodon. AMS this morning. Fever and tachycardia overnight. WBC up to 17 this morning. Minimal colostomy output per nursing. Infect Dis PN-Objective Data - Labs CBC & Chem 7: 06/02/18 09:02 06/02/18 09:02 Labs: Laboratory Results - last 24 hr 06/01/18 06/01/18 06/01/18 15:25 15:54 19:28 WBC RBC Hgb Hct MCV MCH MCHC RDW Plt Count MPV Immature Gran % Seg Neutrophils % Lymphocytes % Monocytes % Eosinophils % Basophils % Neutrophils # Lymphocytes # Monocytes # Eosinophils # Basophils # Immature Plt Fraction Sodium Potassium Chloride Carbon Dioxide BUN Creatinine Est GFR ( Amer) Est GFR (Non-Af Amer) BUN/Creatinine Ratio Glucose POC Glucose 105 H 103 H Calculated Osmolality Calcium Magnesium Vancomycin Trough 12 H 06/02/18 06/02/18 09:02 09:02 WBC 17.3 H RBC 3.65 L Hgb 10.6 L Hct 32.8 L MCV 89.9 MCH 29.0 MCHC 32.3 RDW 16.3 H Plt Count 502 H MPV 9.6 Immature Gran % 1.4 Seg Neutrophils % 75.1 Lymphocytes % 16.3 Monocytes % 6.8 Eosinophils % 0.1 Basophils % 0.3 Neutrophils # 13.0 H Lymphocytes # 2.8 Monocytes # 1.2 Eosinophils # 0.0 Basophils # 0.1 Immature Plt Fraction 1.2 Sodium 136 Potassium 3.6 Chloride 105 Carbon Dioxide 24 BUN 5 L Creatinine 0.71 Est GFR ( Amer) > 60 Est GFR (Non-Af Amer) > 60 BUN/Creatinine Ratio 7 Glucose 111 H POC Glucose Calculated Osmolality 280 Calcium 8.1 L Magnesium 1.3 L Vancomycin Trough Cultures: Cultures 05/29/18 15:00 Urine Culture - Final Urine,Catheterized Beatris albicans 05/29/18 13:00 Sputum Culture - Final Sputum Methicillin Resistant S.aureus 05/29/18 13:02 Blood Culture - Preliminary Central Venous Catheter Culture is incubating and being continuously monitored for growth. Final report to follow. 05/29/18 13:03 Blood Culture - Preliminary Peripheral Venipuncture Culture is incubating and being continuously monitored for growth. Final report to follow. 05/24/18 12:51 Blood Culture - Final Peripheral Venipuncture No growth. Final report. 05/24/18 12:51 Blood Culture - Final Peripheral Venipuncture No growth. Final report. 05/24/18 14:10 Sputum Culture - Final Sputum 05/24/18 14:10 Urine Culture - Final Urine,[place] albicans 05/14/18 23:30 Sputum Culture - Final Sputum Methicillin Resistant S.aureus Klebsiella ozaenae Exam - Constitutional Vitals: Temp Pulse Resp BP Pulse Ox 98.5 F 104 19 149/75 92 06/02/18 10:56 06/02/18 10:56 06/02/18 10:56 06/02/18 10:56 06/02/18 10:56 General appearance: average body habitus, febrile, no acute distress - Head Head exam: Present: atraumatic, normal inspection, normocephalic - Eye Additional comments: Resists passive eye opening, but does not follow commands. - ENT ENT exam: Present: mucous membranes dry - Neck Neck exam: Present: normal inspection - Respiratory Respiratory exam: Present: CTAB. Absent: rales, respiratory distress, rhonchi, wheezes - Cardiovascular Cardiovascular exam: Present: tachycardia. Absent: irregular rhythm - GI/Abdominal GI/Abdominal exam: Present: soft, tenderness (Patient grimmaces with palpation.) Additional comments: Midline abdominal scar well-healed without redness, warmth, or drainage. PEG tube noted to the epigastric region, currently clamped. [place] catheter noted to be draining clear yellow urine. Colostomy noted to the left abdomen with scant brown stool noted. - Extremities Exam Extremities exam: Absent: joint swelling, pedal edema, tenderness - Neurological Exam Neurological exam: Present: altered (Does not open eyes or follow commands. MAHMOOD x 4 spontaneously.), no focal deficits - Skin Skin exam: Present: dry, intact, normal color, warm - VTE Documentation of Mechanical Device: Intermittent pneumatic compression device Consult Discharge Plan - Plan Referrals: Albertina Huerta MD [Primary Care Provider] - - Attending Attestation I examined this patient and my medical decision-making was reviewed with the Resident Physician. I agree with the documented findings, disposition and treatment plan as described except to the extent set forth below. Asked nursing to evaluate the patient because she was wheezing labored breathing. I asked if she has an when necessary nebulizer to be given to the patient. Awaiting imaging. Restart Zosyn until imaging and cultures finalize
[2018-06-02] MEDS: Ipratropium/Albuterol Neb 3 ML IH PRN (13:28)
--- NOTE | 2018-06-02 14:38 | Internal Med Progress Note ---
Hospitalist Progress Note - Encounter Date of Encounter: 06/02/18 Time of Encounter: 12:10 - Subjective Interval History: 78-year-old female transferred from the intensive care unit to floors with the following diagnoses #1septic shock, no longer on pressors #2 MRSA pneumonia #3 acute kidney injury now resolved #4 delirium on top of dementia nonverbal #5 acute hypoxic respiratory failure extubated about 4 days ago. Still on nasal cannula. #6 acute deep vein thrombosis on Lovenox. Patient is seen and examined at the bedside. She is nonverbal, she is tachycardic with heart rates in the 120s, she is on restraints. She is unable to participate in history of evaluation. - Exam Vitals: Temp Pulse Resp BP Pulse Ox 98.5 F 104 19 149/75 92 06/02/18 10:56 06/02/18 10:56 06/02/18 13:28 06/02/18 10:56 06/02/18 13:28 Exam: Vitals: Tachycardic, febrile. MAXIMUM TEMPERATURE in the past 24 hours of 100.8. General: Grunting, in some form of distress, nonverbal, not following commands Skin: Warm and supple. HEENT: Slightly dry mucous membranes. Positive conjunctivae pallor. Neck: Wound dressing on right neck region clean and dry. No JVD. Chest: Normal thoracic expansion. Normal breath sounds. Clear to auscultation anteriorly. Heart: Normal S1 & S2; tachycardic and normal rhythm. No rubs or murmurs. Abdomen: Colostomy bag filled with brown stool, PEG tube in situ Extremities: No clubbing, cyanosis or edema. No calf tenderness. Normal distal pulses. Neurological: Nonverbal, not responding to name call, not following comments. - Assessment and Plan (1) DVT prophylaxis Current Visit: Yes Status: Acute Assessment and Plan: Patient is on Lovenox 80 mg every 12 for DVT. (2) Dementia Current Visit: Yes Status: Chronic Assessment and Plan: Continue current medications. Associated ICU related delirium, continue Haldol. (3) Delirium Current Visit: Yes Status: Acute Assessment and Plan: As above. (4) Acute respiratory failure with hypoxia Current Visit: Yes Status: Acute Assessment and Plan: Patient extubated 4 days ago. Now on oxygen, 3- 4 L continuous. Continue the same. Likely secondary to MRSA pneumonia. (5) Healthcare-associated pneumonia Current Visit: Yes Status: Acute Assessment and Plan: Secondary to MRSA. Continue vancomycin. Monitor Vanco trough. (6) Septic shock Current Visit: Yes Status: Resolved Assessment and Plan: Shock resolved However, patient still stepped sick with fevers, tachycardia and leukocytosis. Continue vancomycin Continue to monitor Gentle IV fluid hydration Infectious disease is following (7) Acute DVT (deep venous thrombosis) Current Visit: Yes Status: Acute Assessment and Plan: Lovenox subcutaneous every 12 Consider changing to by mouth NOACs when PEG tube is being used (8) Acute renal failure Current Visit: Yes Status: Acute (9) Hypernatremia Current Visit: Yes Status: Resolved (10) HLD (hyperlipidemia) Current Visit: No Status: Chronic (11) HTN (hypertension) Current Visit: No Status: Chronic (12) Hypothyroidism Current Visit: Yes Status: Chronic Assessment and Plan: resume synthroid when PEG functions Check TSH with a.m labs (13) Anemia Current Visit: Yes Status: Chronic Assessment and Plan: continue to monitor - Time Spent with Patient Total time spent is greater than 50% in coordination of care (as documented) at patient's floor/unit and/or counseling patient: Plan of Care Discussed with: nurse Internal Medicine: Result - Labs CBC & Chem 7: 06/02/18 09:02 06/02/18 09:02 Labs: Short CBC 06/02/18 Range/Units 09:02 WBC 17.3 H (4.3-11.1) K/mcL Hgb 10.6 L (11.5-15.4) g/dL Hct 32.8 L (35.3-44.9) % Plt Count 502 H (140-400) K/mcL Neutrophils # 13.0 H (1.6-8.9) K/mcL BMP 06/02/18 09:02 Sodium 136 Potassium 3.6 Chloride 105 Carbon Dioxide 24 BUN 5 L Creatinine 0.71 Glucose 111 H Calcium 8.1 L - ABG Interpretation ABG results: ABG ABG pH 7.37 pH Units (7.32-7.45) 05/26/18 05:23 ABG pCO2 38 mmHg (35-45) 05/26/18 05:23 ABG pO2 107 mmHg (85-104) H 05/26/18 05:23 ABG O2 Saturation 98 % (95-98) 05/26/18 05:23 PT/INR, D-dimer PT 17.5 Seconds (9.4-12.1) H 06/01/18 04:59 - VTE Documentation of Mechanical Device: Intermittent pneumatic compression device Consult Discharge Plan - Plan Referrals: Albertina Huerta MD [Primary Care Provider] - (2) Dementia Qualifiers: Dementia type: unspecified type Dementia behavioral disturbance: with behavioral disturbance Qualified Code(s): F03.91 - Unspecified dementia with behavioral disturbance (7) Acute DVT (deep venous thrombosis) Qualifiers: DVT location: lower extremity Affected thrombotic vein of extremity: popliteal Laterality: right Qualified Code(s): I82.431 - Acute embolism and thrombosis of right popliteal vein (8) Acute renal failure Qualifiers: Acute renal failure type: unspecified Qualified Code(s): N17.9 - Acute kidney failure, unspecified (10) HLD (hyperlipidemia) Qualifiers: Hyperlipidemia type: mixed hyperlipidemia Qualified Code(s): E78.2 - Mixed hyperlipidemia (11) HTN (hypertension) Qualifiers: Hypertension type: essential hypertension Qualified Code(s): I10 - Essential (primary) hypertension (12) Hypothyroidism Qualifiers: Hypothyroidism type: acquired Qualified Code(s): E03.9 - Hypothyroidism, unspecified (13) Anemia Qualifiers: Anemia type: unspecified type Qualified Code(s): D64.9 - Anemia, unspecified
[2018-06-02] MEDS ORDERED: D5% in 0.9% NACL 1,000 ML IVC SCH (14:45)
[2018-06-02] MEDS ORDERED: Acetaminophen IV 1,000 MG/100 ML INFUS..BTL IVPB PRN ×2 (14:56→14:59)
[2018-06-02] MEDS ORDERED: Isovue-370 500 ML INFUS..BTL IV ONE ×2 (15:49→23:47)
[2018-06-02 17:03] LABS: Albumin 2.4 g/dL (3.5-5.7); Albumin/Globulin Ratio 0.6 (1.1-2.2); Bilirubin,Direct 0.3 mg/dL (0.0-0.2); Bilirubin,Indirect 0.4 mg/dL (0.0-1.2); Bilirubin,Total 0.7 mg/dL (0.3-1.0); Globulin 4.2 g/dL (2.4-3.5); Total Protein 6.6 g/dL (6.4-8.9)
[2018-06-02] MEDS: Piperacillin/Tazobactam 3.375 GM in 0.9 % Sodium Chloride Mini Bag 100 ML IVPB SCH (18:04)
[2018-06-02 19:05] LABS: ABG Base Excess 2 mEq/L (-2 to 3); ABG HCO3 25 mEq/L (21-27); ABG Oxygen Saturation 98 % (95-98); ABG PCO2 31 mmHg (35-45); ABG PH 7.51 pH Units (7.32-7.45); ABG PO2 85 mmHg (85-104); ABG TCO2 26 mEq/L (20-26)
[2018-06-02] MEDS ORDERED: Furosemide 20 MG/2 ML VIAL IVP ONE ×2 (19:52→20:01)
[2018-06-02] MEDS ORDERED: Acetaminophen 650 MG RECTAL SUPP RC PRN (20:00)
[2018-06-02] MEDS: Haloperidol Lactate 5 MG/ML VIAL IVP PRN (20:07)
[2018-06-02] MEDS: Ipratropium/Albuterol Neb 3 ML IH SCH (22:02)
[2018-06-03] MEDS: Ipratropium/Albuterol Neb 3 ML IH SCH ×6 (00:09→19:35)
--- NOTE | 2018-06-03 00:22 | Event Note ---
Date of Encounter: 06/02/18 Time of Encounter: 23:43 Alerted by pts. nurse RUSTY Miller that patient was restless and short of breath that she had been previously. Went to see patient who was mildly restless and was given Haldol which seemed to help. Daughter reported that the patient had history of DVTs and was not currently anti-coagulated except for 81 mg aspirin daily. Concern was for PE so D-dimer ordered which came back at [id number]. CTA of the chest ordered. Awaiting results. Patient currently receiving Lovenox 80 mg SQ every 12 hours. Will continue to monitor and await CTA results.
[2018-06-03] MEDS: Piperacillin/Tazobactam 3.375 GM in 0.9 % Sodium Chloride Mini Bag 100 ML IVPB SCH ×3 (00:31→16:38)
[2018-06-03] MEDS: OXYCODONE Oral CONC 10 MG/0.5 ML ORAL.SYG SL PRN ×4 (02:31→18:01)
[2018-06-03 05:24] LABS: Basophils % 0.4 %; Immature Granulocytes % 1.2 % (0-4); Mean Platelet Volume 9.6 fL (9.4-12.4); Red Cell Distribution Width 16.6 % (11.5-14.5)
[2018-06-03 05:25] LABS: Basophils # 0.1 K/mcL (0.0-0.2); Eosinophils # 0.2 K/mcL (0.0-0.6); Eosinophils % 0.8 %; Hematocrit 28.3 % (35.3-44.9); Hemoglobin 8.9 g/dL (11.5-15.4); Lymphocytes # 2.6 K/mcL (0.6-4.6); Lymphocytes % 10.3 %; Mean Corpuscular HGB Conc 31.4 g/dL (31.6-35.5); Monocytes # 1.1 K/mcL (0.0-1.3); Monocytes % 4.3 %; Platelet Count 442 K/mcL (140-400); Red Blood Count 3.18 M/mcL (3.82-4.97)
[2018-06-03 05:33] LABS: Neutrophils # 20.8 K/mcL (1.6-8.9)
[2018-06-03 05:37] LABS: BUN/Creatinine Ratio 10 (6-26); Blood Urea Nitrogen 10 mg/dL (8-23); Calcium 7.6 mg/dL (8.6-10.3); Carbon Dioxide 21 mEq/L (23-29); Chloride 105 mEq/L (98-107); Glucose 121 mg/dL (70-105); Magnesium 1.3 mg/dL (1.6-2.6); Osmolality,Calculated 278 (280-300); Sodium 134 mEq/L (136-145); eGFR For Non-African Americans 53 (> 60)
[2018-06-03 05:47] LABS: Hypochromasia Present (Not Present)
[2018-06-03] MEDS: *HR* Enoxaparin 80 MG/0.8 ML SYRINGE SQ SCH (06:08)
[2018-06-03] MEDS ORDERED: Furosemide 20 MG/2 ML VIAL IVP SCH (09:00)
[2018-06-03] MEDS ORDERED: Potassium Chloride Elixir 20 MEQ/15 ML UDC GTUBE SCH (09:00)
--- NOTE | 2018-06-03 09:11 | Internal Med Progress Note ---
Hospitalist Progress Note - Encounter Date of Encounter: 06/03/18 Time of Encounter: 09:10 - Subjective Interval History: 78-year-old female transferred from the intensive care unit to floors with the following diagnoses #1 septic shock, no longer on pressors #2 MRSA pneumonia #3 acute kidney injury now resolved #4 delirium on top of dementia nonverbal #5 acute hypoxic respiratory failure extubated about 4 days ago. Still on nasal cannula. #6 acute deep vein thrombosis on Lovenox. 06/02:Patient is seen and examined at the bedside. She is nonverbal, she is tachycardic with heart rates in the 120s, she is on restraints. She is unable to participate in history of evaluation. 06/03: Patient is able to open eyes to name call and follows simple commands, she moves all her extremities spontaneously but is still non-verbal She continues to have fever, associated tachycardia, leukocytosis worsening Repeat Abd/CT done 06/02 showed cavitary PNA with moderate R pleural effusion. No pulmonary embolism. Also suspected Pulm edema She is now being fed by PEG tube ID is following and restarted Zosyn 06/02 Discussed with IR for diagnostic and therapeutic thoracentensis this a.m , suspect para-pneumonic effusion We will hold tonight's dose of lovenox and start on warfarin 06/04 p.m with the anticipation, she would have had thoracentensis today 06/03 or first thing tmrw 06/04 Patient is still septic and is high risk for decompensation She is FULL CODE - Exam Vitals: Temp Pulse Resp BP Pulse Ox 98.1 F 93 22 119/75 96 06/03/18 06:57 06/03/18 06:57 06/03/18 07:54 06/03/18 06:57 06/03/18 07:54 Exam: Vitals: Tachycardic, febrile. MAXIMUM TEMPERATURE in the past 24 hours of 100.6 General: In mild distress, possibly in pain Skin: Warm and supple. HEENT: Slightly dry mucous membranes. Positive conjunctivae pallor. Neck: Wound dressing on right neck region clean and dry. No JVD. Chest: Normal thoracic expansion. Rhonchi and rales, anterior auscultation only Heart: Normal S1 & S2; tachycardic and normal rhythm. No rubs or murmurs. Abdomen: Colostomy bag filled with brown stool, PEG tube in situ, surrounding dressing clean and dry Extremities: No clubbing, cyanosis or edema. No calf tenderness. Normal distal pulses. Neurological: Opens eyes to name call, follows simple commands, still non-verbal - Assessment and Plan (1) DVT prophylaxis Current Visit: Yes Status: Acute Assessment and Plan: Patient is on Lovenox 80 mg every 12 for DVT. (2) Dementia Current Visit: Yes Status: Chronic Assessment and Plan: Continue current medications. Associated ICU related delirium, continue Haldol. (3) Delirium Current Visit: Yes Status: Acute Assessment and Plan: As above. (4) Acute respiratory failure with hypoxia Current Visit: Yes Status: Acute Assessment and Plan: Multifactorial: PNA, Sepsis, Edema Patient extubated 05/29 She hadbeen intubated twice for same diagnosis during this hospital stay Now on oxygen, 3- 4 L continuous. (5) Septic shock Current Visit: Yes Status: Resolved Assessment and Plan: Shock resolved However, patient still septic with fevers, tachycardia and leukocytosis. Continue vancomycin and zosyn Reepat Abd and chest st with worsening infiltrates, Pleural effusion, cavitary PNA and edema Continue to monitor D/C IVF High risk patient (6) Acute DVT (deep venous thrombosis) Current Visit: Yes Status: Acute Assessment and Plan: Lovenox subcutaneous every 12H Start patient with warfarin 8/4 pm Monitor INR daily (7) Acute renal failure Current Visit: Yes Status: Acute Assessment and Plan: Resolved Continue to monitor Chem (8) Hypernatremia Current Visit: Yes Status: Resolved Assessment and Plan: Resolved (9) HLD (hyperlipidemia) Current Visit: Yes Status: Chronic Assessment and Plan: continue zocor (10) HTN (hypertension) Current Visit: Yes Status: Chronic Assessment and Plan: Continue lasix Patient with shock , now resolved (11) Hypothyroidism Current Visit: Yes Status: Chronic Assessment and Plan: TSH 16 Continue synthroid 100mcg daily (12) Anemia Current Visit: Yes Status: Chronic Assessment and Plan: continue to monitor (13) MRSA pneumonia Current Visit: Yes Status: Acute Assessment and Plan: Sputum culture with MRSA, on vanco CT chest shows worsening PNA, with cavitary lesions and efffusion Continue Vanco and Zosyn Continue O2 supplementation Infectious disease following For diagnostic and therapeutic thoracentensis this a.m by IR (14) Pulmonary edema Current Visit: Yes Status: Acute Assessment and Plan: Anasarca per CT Patient with hypoxia, worsening, also worsening PNA Strict I/Os D/c IVF Start on lasix 20mg IVP daily, monitor Chem-Patient has been exposed to contrast and also had GEORGI on admission, high risk of renal dysfunction (15) Hypomagnesemia Current Visit: Yes Status: Acute Assessment and Plan: Replaced with 4g IV, continue to monitor (16) Hypokalemia Current Visit: Yes Status: Acute Assessment and Plan: Replaced , continue to monitor (17) Pleural effusion Current Visit: Yes Status: Acute Assessment and Plan: Moderate L and small R per CT Worsening PNA on CT Likley parapneumonic IR to tap today Will send work up, including culture - Time Spent with Patient Total time spent is greater than 50% in coordination of care (as documented) at patient's floor/unit and/or counseling patient: Greater than 35 minutes Plan of Care Discussed with: nurse Internal Medicine: Result - Labs CBC & Chem 7: 06/03/18 04:51 06/03/18 04:51 Labs: Short CBC 06/02/18 06/03/18 Range/Units 09:02 04:51 WBC 17.3 H 25.0 H (4.3-11.1) K/mcL Hgb 10.6 L 8.9 L D (11.5-15.4) g/dL Hct 32.8 L 28.3 L (35.3-44.9) % Plt Count 502 H 442 H (140-400) K/mcL Neutrophils # 13.0 H 20.8 H (1.6-8.9) K/mcL BMP 06/02/18 06/03/18 09:02 04:51 Sodium 136 134 L Potassium 3.6 3.0 L Chloride 105 105 Carbon Dioxide 24 21 L BUN 5 L 10 Creatinine 0.71 1.01 Glucose 111 H 121 H Calcium 8.1 L 7.6 L Liver Function 06/02/18 Range/Units 16:32 Total Bilirubin 0.7 (0.3-1.0) mg/dL Direct Bilirubin 0.3 H (0.0-0.2) mg/dL AST 29 (13-39) Units/L ALT 20 (7-52) Units/L Alkaline Phosphatase 72 (34-104) Units/L Albumin 2.4 L (3.5-5.7) g/dL - ABG Interpretation ABG results: ABG ABG pH 7.51 pH Units (7.32-7.45) H 06/02/18 18:58 ABG pCO2 31 mmHg (35-45) L 06/02/18 18:58 ABG pO2 85 mmHg (85-104) 06/02/18 18:58 ABG O2 Saturation 98 % (95-98) 06/02/18 18:58 PT/INR, D-dimer PT 17.5 Seconds (9.4-12.1) H 06/01/18 04:59 D-Dimer 5271 ng/mLFEU (0-500) H 06/02/18 22:10 - Impressions Impressions Abdomen/Pelvis CT 06/02/18 18:30 IMPRESSION: Moderate left and small right pleural effusions, increased when compared to the previous exam, with adjacent airspace consolidation, concerning for pneumonia. Within the areas of consolidated lung, there is heterogeneous attenuation, with likely cavitation, suggesting necrosis, which is also new finding. Within the upper lungs, there are multiple foci of consolidation noted as well, increased when compared to the previous exam, also concerning for infectious bronchopneumonia. Given the evidence of subcutaneous anasarca, correlate with any clinical evidence of superimposed pulmonary edema. Small web-like filling defect identified within the right internal jugular vein, which suggests a chronic thrombus, possibly from a previous indwelling catheter. Re- demonstration of previous partial colectomy, with left lower quadrant colostomy placement. No evidence of bowel obstruction. No focal fluid collections within the abdomen. Re- demonstration of cholelithiasis. Evidence of bilateral sacral insufficiency fractures. D/ / David Romano MD / David Romano MD Interpreting Provider: David Romano MD Chest CT 06/02/18 18:30 IMPRESSION: Moderate left and small right pleural effusions, increased when compared to the previous exam, with adjacent airspace consolidation, concerning for pneumonia. Within the areas of consolidated lung, there is heterogeneous attenuation, with likely cavitation, suggesting necrosis, which is also new finding. Within the upper lungs, there are multiple foci of consolidation noted as well, increased when compared to the previous exam, also concerning for infectious bronchopneumonia. Given the evidence of subcutaneous anasarca, correlate with any clinical evidence of superimposed pulmonary edema. Small web-like filling defect identified within the right internal jugular vein, which suggests a chronic thrombus, possibly from a previous indwelling catheter. Re- demonstration of previous partial colectomy, with left lower quadrant colostomy placement. No evidence of bowel obstruction. No focal fluid collections within the abdomen. Re- demonstration of cholelithiasis. Evidence of bilateral sacral insufficiency fractures. D/ / David Romano MD / David Romano MD Interpreting Provider: David Romano MD Chest CTA 06/03/18 23:47 IMPRESSION: 1. Assessment is slightly limited due to respiratory motion. No evidence of central pulmonary embolism. Assessment of distal branches of smaller caliber pulmonary artery is limited. 2. Moderate bilateral pleural effusion, greater on the left with compressive atelectasis of the lower lobes 3. Bilateral pulmonary opacities suspicious for pulmonary edema or pneumonia 4. Hiatal hernia D/ / Conner Oviedo MD / Conner Oviedo MD Interpreting Provider: Conner Oviedo MD - VTE Documentation of Mechanical Device: Intermittent pneumatic compression device Consult Discharge Plan - Plan Referrals: Albertina Huerta MD [Primary Care Provider] - (2) Dementia Qualifiers: Dementia type: unspecified type Dementia behavioral disturbance: with behavioral disturbance Qualified Code(s): F03.91 - Unspecified dementia with behavioral disturbance (6) Acute DVT (deep venous thrombosis) Qualifiers: DVT location: lower extremity Affected thrombotic vein of extremity: popliteal Laterality: right Qualified Code(s): I82.431 - Acute embolism and thrombosis of right popliteal vein (7) Acute renal failure Qualifiers: Acute renal failure type: unspecified Qualified Code(s): N17.9 - Acute kidney failure, unspecified (9) HLD (hyperlipidemia) Qualifiers: Hyperlipidemia type: mixed hyperlipidemia Qualified Code(s): E78.2 - Mixed hyperlipidemia (10) HTN (hypertension) Qualifiers: Hypertension type: essential hypertension Qualified Code(s): I10 - Essential (primary) hypertension (11) Hypothyroidism Qualifiers: Hypothyroidism type: acquired Qualified Code(s): E03.9 - Hypothyroidism, unspecified (12) Anemia Qualifiers: Anemia type: unspecified type Qualified Code(s): D64.9 - Anemia, unspecified (13) MRSA pneumonia Qualifiers: Laterality: bilateral Lung location: unspecified part of lung Qualified Code (s): J15.212 - Pneumonia due to Methicillin resistant Staphylococcus aureus (14) Pulmonary edema Qualifiers: Chronicity: acute Qualified Code(s): J81.0 - Acute pulmonary edema
[2018-06-03] MEDS: Potassium Chloride Elixir 20 MEQ/15 ML UDC GTUBE SCH ×2 (09:39→16:38)
[2018-06-03] MEDS: Nystatin POWDER 30 GM BOTTLE TP SCH ×2 (09:41→14:21)
--- NOTE | 2018-06-03 10:41 | Infectious Disease Progress No ---
Date of Encounter: 06/03/18 Time of Encounter: 10:39 - Assessment and Plan (1) Septic shock Current Visit: Yes Status: Acute The patient had three SIRS criteria plus hypotension requiring vasopressors, lactic acidosis, and GEORGI. Likely secondary to PNA initially. Improved. WBC normalized. Vasopressors off. Lactic acidosis and GEORGI have resolved. She has re-developed tachycardia and leukocytosis and had a low-grade fever overnight. WBC continues to worsen this morning. Likely secondary to PNA. Blood culture drawn 05/14/18 x 2 sets are negative. Repeat blood cultures drawn 05/24/18 are negative x 2 sets. Additional blood cultures drawn 05/29/18 are NGTD x 2 sets. (2) Healthcare-associated pneumonia Current Visit: Yes Status: Acute Causative organism: MRSA and K. ozaenae. Likely secondary to recent healthcare exposure. CXR showed progressive bilateral asymmetrical pulmonary opacities concerning for developing edema vs. multifocal PNA. CT of the chest showed bilateral pleural effusions that were improved and bilateral lower lobe opacities with lower lobe consolidation and multifocal upper lobe bronchiolitis. Sputum culture 05/14/18 positive for MRSA and K. ozaenae. Treated with 14 days of Vanc and Zosyn and clinically improved. Repeat sputum culture 05/24/18 negative. Additional sputum culture obtained 05/29/[address] chest completed 06/02/18 showed moderate left and small right pleural effusions with adjacent consolidataion consistent with pneumonia and possible cavitation with necrosis as well as findings indicative of infectious bronchopneumonia. The patient does appear to have a very poor/non-existent cough, so this could be a source control issue. She also vomited yesterday when given her tube feed. There is a high likelihood the patient aspirated. She may benefit from a bronch. Apparently there was a large amount of mucous noted when the patient had her PEG tube placed as well. Continue Vancomycin IV. Pharmacy to dose. Goal trough ~15. Continue Zosyn 3.375 grams IV Q8H. Duration of treatment depends on the clinical picture. Monitor renal function and for drug toxicity and dose-adjust antibiotics. (3) Acute renal failure Current Visit: Yes Status: Acute Likely secondary to septic shock. Resolved. Qualifiers: Acute renal failure type: unspecified Qualified Code(s): N17.9 - Acute kidney failure, unspecified (4) Acute respiratory failure with hypoxia Current Visit: Yes Status: Acute Likely secondary to PNA. Resolved. (5) Lactic acidosis Current Visit: Yes Status: Acute Likely secondary to sepsis. Resolved. (6) Anemia Current Visit: Yes Status: Chronic Hgb down to 8 this morning. No acute bleeding noted on exam. Further workup and management per the primary team. Qualifiers: Anemia type: unspecified type Qualified Code(s): D64.9 - Anemia, unspecified (7) Hypernatremia Current Visit: Yes Status: Resolved Likely secondary to dehydration. Resolved. (8) Elevated troponin Current Visit: Yes Status: Resolved Likely demand ischemia secondary to sepsis. (9) Dehydration Current Visit: Yes Status: Resolved Likely secondary to little to no PO intake x 48 hours. She did not tolerate PEG tube feeds. IV fluids per the primary team recommendations. (10) Dementia Current Visit: No Status: Chronic Baseline dementia worsened by hospital delirium and sepsis. CT head negative. Continue to monitor closely. 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 Herrera secondary to colonic obstruction by a mass. Path negative for malignancy. - Subjective Interval history: Patient seen and examined. More alert this morning, opens eyes to verbal stimuli , but still having AMS. Per nursing, attemped to start bolus tube feeds yesterday, patient had immediate vomiting. Fever and tachycardia overnight. WBC continues to trend up this morning. Minimal colostomy output per nursing. Infect Dis PN-Objective Data - Labs CBC & Chem 7: 06/03/18 04:51 06/03/18 04:51 Labs: Laboratory Results - last 24 hr 06/02/18 06/02/18 06/02/18 05:54 09:02 12:05 WBC RBC Hgb Hct MCV MCH MCHC RDW Plt Count MPV Immature Gran % Seg Neutrophils % Lymphocytes % Monocytes % Eosinophils % Basophils % Neutrophils # Lymphocytes # Monocytes # Eosinophils # Basophils # Platelet Estimate Hypochromasia D-Dimer ABG pH ABG pCO2 ABG pO2 ABG HCO3 ABG Total CO2 ABG O2 Saturation ABG Base Excess O2 Delivery Device Sodium Potassium Chloride Carbon Dioxide BUN Creatinine Est GFR ( Amer) Est GFR (Non-Af Amer) BUN/Creatinine Ratio Glucose POC Glucose 99 110 H Calculated Osmolality Lactic Acid Calcium Magnesium Total Bilirubin Direct Bilirubin Indirect Bilirubin AST ALT Alkaline Phosphatase Serum Total Protein Albumin Globulin Albumin/Globulin Ratio Amylase Lipase TSH 16.923 H 06/02/18 06/02/18 06/02/18 16:32 18:58 21:01 WBC RBC Hgb Hct MCV MCH MCHC RDW Plt Count MPV Immature Gran % Seg Neutrophils % Lymphocytes % Monocytes % Eosinophils % Basophils % Neutrophils # Lymphocytes # Monocytes # Eosinophils # Basophils # Platelet Estimate Hypochromasia D-Dimer ABG pH 7.51 H ABG pCO2 31 L ABG pO2 85 ABG HCO3 25 ABG Total CO2 26 ABG O2 Saturation 98 ABG Base Excess 2 O2 Delivery Device Oxy Mask Sodium Potassium Chloride Carbon Dioxide BUN Creatinine Est GFR ( Amer) Est GFR (Non-Af Amer) BUN/Creatinine Ratio Glucose POC Glucose Calculated Osmolality Lactic Acid 1.0 Calcium Magnesium Total Bilirubin 0.7 Direct Bilirubin 0.3 H Indirect Bilirubin 0.4 AST 29 ALT 20 Alkaline Phosphatase 72 Serum Total Protein 6.6 Albumin 2.4 L Globulin 4.2 H Albumin/Globulin Ratio 0.6 L Amylase 27 L Lipase 45 TSH 06/02/18 06/02/18 06/03/18 22:10 23:29 04:51 WBC 25.0 H RBC 3.18 L Hgb 8.9 L D Hct 28.3 L MCV 89.0 MCH 28.0 MCHC 31.4 L RDW 16.6 H Plt Count 442 H MPV 9.6 Immature Gran % 1.2 Seg Neutrophils % 83.0 Lymphocytes % 10.3 Monocytes % 4.3 Eosinophils % 0.8 Basophils % 0.4 Neutrophils # 20.8 H Lymphocytes # 2.6 Monocytes # 1.1 Eosinophils # 0.2 Basophils # 0.1 Platelet Estimate Slight increase H Hypochromasia Present A D-Dimer 5271 H ABG pH ABG pCO2 ABG pO2 ABG HCO3 ABG Total CO2 ABG O2 Saturation ABG Base Excess O2 Delivery Device Sodium Potassium Chloride Carbon Dioxide BUN Creatinine Est GFR ( Amer) Est GFR (Non-Af Amer) BUN/Creatinine Ratio Glucose POC Glucose 134 H Calculated Osmolality Lactic Acid Calcium Magnesium Total Bilirubin Direct Bilirubin Indirect Bilirubin AST ALT Alkaline Phosphatase Serum Total Protein Albumin Globulin Albumin/Globulin Ratio Amylase Lipase TSH 06/03/18 06/03/18 04:51 05:40 WBC RBC Hgb Hct MCV MCH MCHC RDW Plt Count MPV Immature Gran % Seg Neutrophils % Lymphocytes % Monocytes % Eosinophils % Basophils % Neutrophils # Lymphocytes # Monocytes # Eosinophils # Basophils # Platelet Estimate Hypochromasia D-Dimer ABG pH ABG pCO2 ABG pO2 ABG HCO3 ABG Total CO2 ABG O2 Saturation ABG Base Excess O2 Delivery Device Sodium 134 L Potassium 3.0 L Chloride 105 Carbon Dioxide 21 L BUN 10 Creatinine 1.01 Est GFR ( Amer) > 60 Est GFR (Non-Af Amer) 53 L BUN/Creatinine Ratio 10 Glucose 121 H POC Glucose 127 H Calculated Osmolality 278 L Lactic Acid Calcium 7.6 L Magnesium 1.3 L Total Bilirubin Direct Bilirubin Indirect Bilirubin AST ALT Alkaline Phosphatase Serum Total Protein Albumin Globulin Albumin/Globulin Ratio Amylase Lipase TSH Cultures: Cultures 06/02/18 16:34 Blood Culture - Preliminary Peripheral Venipuncture Culture is incubating and being continuously monitored for growth. Final report to follow. 06/02/18 16:32 Blood Culture - Preliminary Peripheral Venipuncture Culture is incubating and being continuously monitored for growth. Final report to follow. 05/29/18 15:00 Urine Culture - Final Urine,Catheterized Beatris albicans 05/29/18 13:00 Sputum Culture - Final Sputum Methicillin Resistant S.aureus 05/29/18 13:02 Blood Culture - Preliminary Central Venous Catheter Culture is incubating and being continuously monitored for growth. Final report to follow. 05/29/18 13:03 Blood Culture - Preliminary Peripheral Venipuncture Culture is incubating and being continuously monitored for growth. Final report to follow. 05/24/18 12:51 Blood Culture - Final Peripheral Venipuncture No growth. Final report. 05/24/18 12:51 Blood Culture - Final Peripheral Venipuncture No growth. Final report. 05/24/18 14:10 Sputum Culture - Final Sputum 05/24/18 14:10 Urine Culture - Final Urine,[place] albicans 05/14/18 23:30 Sputum Culture - Final Sputum Methicillin Resistant S.aureus Klebsiella ozaenae - Impressions Impressions Abdomen/Pelvis CT 06/02/18 18:30 IMPRESSION: Moderate left and small right pleural effusions, increased when compared to the previous exam, with adjacent airspace consolidation, concerning for pneumonia. Within the areas of consolidated lung, there is heterogeneous attenuation, with likely cavitation, suggesting necrosis, which is also new finding. Within the upper lungs, there are multiple foci of consolidation noted as well, increased when compared to the previous exam, also concerning for infectious bronchopneumonia. Given the evidence of subcutaneous anasarca, correlate with any clinical evidence of superimposed pulmonary edema. Small web-like filling defect identified within the right internal jugular vein, which suggests a chronic thrombus, possibly from a previous indwelling catheter. Re- demonstration of previous partial colectomy, with left lower quadrant colostomy placement. No evidence of bowel obstruction. No focal fluid collections within the abdomen. Re- demonstration of cholelithiasis. Evidence of bilateral sacral insufficiency fractures. D/ / David Romano MD / David Romano MD Interpreting Provider: David Romano MD Chest CT 06/02/18 18:30 IMPRESSION: Moderate left and small right pleural effusions, increased when compared to the previous exam, with adjacent airspace consolidation, concerning for pneumonia. Within the areas of consolidated lung, there is heterogeneous attenuation, with likely cavitation, suggesting necrosis, which is also new finding. Within the upper lungs, there are multiple foci of consolidation noted as well, increased when compared to the previous exam, also concerning for infectious bronchopneumonia. Given the evidence of subcutaneous anasarca, correlate with any clinical evidence of superimposed pulmonary edema. Small web-like filling defect identified within the right internal jugular vein, which suggests a chronic thrombus, possibly from a previous indwelling catheter. Re- demonstration of previous partial colectomy, with left lower quadrant colostomy placement. No evidence of bowel obstruction. No focal fluid collections within the abdomen. Re- demonstration of cholelithiasis. Evidence of bilateral sacral insufficiency fractures. D/ / David Romano MD / David Romano MD Interpreting Provider: David Romano MD Chest CTA 06/03/18 23:47 IMPRESSION: 1. Assessment is slightly limited due to respiratory motion. No evidence of central pulmonary embolism. Assessment of distal branches of smaller caliber pulmonary artery is limited. 2. Moderate bilateral pleural effusion, greater on the left with compressive atelectasis of the lower lobes 3. Bilateral pulmonary opacities suspicious for pulmonary edema or pneumonia 4. Hiatal hernia D/ / Conner Oviedo MD / Conner Oviedo MD Interpreting Provider: Conner Oviedo MD Exam - Constitutional Vitals: Temp Pulse Resp BP Pulse Ox 98.1 F 93 22 119/75 96 06/03/18 06:57 06/03/18 06:57 06/03/18 07:54 06/03/18 06:57 06/03/18 07:54 General appearance: no acute distress, thin, no febrile - Head Head exam: Present: atraumatic, normal inspection, normocephalic - Eye Additional comments: Resists passive eye opening, does not follow commands. - ENT ENT exam: Present: mucous membranes dry - Neck Neck exam: Present: normal inspection - Respiratory Respiratory exam: Present: decreased breath sounds (Bilateral bases), rhonchi ( Throughout). Absent: rales, wheezes - Cardiovascular Cardiovascular exam: Present: +S1, +S2, tachycardia. Absent: irregular rhythm - GI/Abdominal GI/Abdominal exam: Present: hypoactive bowel sounds, soft, tenderness ( Generalized. Grimaces with palpation). Absent: distended Additional comments: Colostomy noted to the LLQ with scant amount of liquid brown stool noted. PEG tube noted to the LUQ, currently clamped. [place] catheter noted to be draining clear yellow urine. - Extremities Exam Extremities exam: Present: normal inspection. Absent: joint swelling, pedal edema, tenderness - Neurological Exam Neurological exam: Present: altered (Opens eyes to verbal stimuli. Does not follow commands or answer questions.) - Skin Skin exam: Present: dry, intact, normal color, warm - VTE Documentation of Mechanical Device: Intermittent pneumatic compression device Consult Discharge Plan - Plan Referrals: Albertina Huerta MD [Primary Care Provider] - - Attending Attestation I examined this patient and my medical decision-making was reviewed with the Resident Physician. I agree with the documented findings, disposition and treatment plan as described except to the extent set forth below.
[2018-06-03 10:55] LABS: INR 1.6; Prothrombin Time 17.9 Seconds (9.4-12.1)
[2018-06-03] MEDS: Haloperidol Lactate 5 MG/ML VIAL IVP PRN ×2 (12:14→18:02)
--- NOTE | 2018-06-03 12:48 | Electrocardiograph Report ---
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
[2018-06-03 14:59] LABS: Appearance of Pleural Fl Hazy (Clear)
[2018-06-03 15:01] LABS: RBC,Pleural Fluid < 0.002 M/mcL
--- NOTE | 2018-06-03 15:24 | IR Procedure Note ---
Date of procedure: 06/03/18 Consent Obtained: Verbal consent, Written consent Timeout: Correct patient and procedure verified, Correct site verified, Time out performed, Skin prep completed Local anesthetic: Lidocaine 1% Indications: pleural effusions, shortness of breath Procedure Performed: left thoracentesis Was there an metal moulder's assistant present: No Site/Technique: left pleural space Results/Findings: small pleural effusion Estimated blood loss (cc): 0 Complications: None; Tolerated procedure well Post Procedure Treatment Plan: chest xray Specimen: 350 cc straw colored fluid
[2018-06-03 15:44] LABS: Glucose,Pleural Fluid 128 mg/dL (No Ref Range); LDH,Pleural Fluid 104 Units/L (No Ref Range); Total Protein,Pleural Fluid < 3.0 g/dL (No Ref Range)
--- NOTE | 2018-06-03 16:55 | Event Note ---
Date of Encounter: 06/03/18 Time of Encounter: 16:46 Attention drawn to me by Jocelynn (Nurse manager of security) that patient's family is wanting to transfer to [facility] On 8/2 p.m, I had discussed at length with the patient's POA and daughter Leanna who continued to insist the patient needs to remain in the Intensive Care Upon their request I called [facility] There is currently no medical necessity for this transfer as patient is getting all the necessary medical and nursing care at this facility I went back to the patient's room and met with patient's other daughter Misa who called her sister Leanna on the phone Leanna states that she is also requesting for transfer based on the need for a garage door hanger She was informed of the availability of a garage door hanger here if and when needed and that the transfer centers do not promise a 1: 1 care I have made arrangements to transfer patient to in the meantime Leanna wants to discuss with her siblings and get back to us I also discussed this with Dr. Gandara who endorsed this had been the pattern even when the patient was in the ICU
--- NOTE | 2018-06-03 17:11 | Transfer Summary ---
Date of Encounter: 06/03/18 Time of Encounter: 17:09 Transfer Discharge Sum: Diag - Discharge Diagnosis (1) Acute respiratory failure with hypoxia Status: Acute Problem details: Patient transferred from nursing home facility and emergently intubated in the emergency room upon arrival due to acute hypoxic and hypercapnic respiratory failure, with multiple acid -base disorders secondary to healthcare associated pneumonia secondary to MRSA and Klebsiella PNA. She was extubated 05/20 but reintubated on 05/23 due to multiple factors including mrked hyperactive delirium impairing liberation from vent She was extubated 05/29 to BiPAP initially and subsequently placed on nasal cannula She was transferred to the regular floors on 06/01 At the time of this transfer she is on 3-4 L by oxymask (2) DVT prophylaxis Status: Acute Problem details: Patient is on Lovenox 80 mg every 12 for DVT (3) Dementia Status: Chronic Problem details: Baseline history of dementia Stated by SNF to be oriented to person at baseline, occasionally confused Mental status complictaed by ICU delirium, improving Able to open eyes to name call and follows commands (4) Delirium Status: Acute Problem details: As in dementia (5) Septic shock Status: Resolved Problem details: She presented in septic shock and was placed on pressors, she has since been off pressors since 05/23 Blood pressure currently acceptable (6) Acute DVT (deep venous thrombosis) Status: Acute Problem details: patient's Venous Doppler showed acute thrombosis of the right superficial femoral vein and popliteal vein demonstrates . -on Lovenox 80mg SQ q12h (7) Acute renal failure Status: Resolved Problem details: resolevd Renal function is stable (8) Hypernatremia Status: Resolved Problem details: Presented with Na of 173 Has since resolved (9) HLD (hyperlipidemia) Status: Chronic (10) HTN (hypertension) Status: Chronic (11) Hypothyroidism Status: Chronic Problem details: TSH 16 Likely due to acute illness Received synthroid IV in ICU Now on Synthroid by PEG tube (12) Anemia Status: Chronic (13) MRSA pneumonia Status: Acute Problem details: Sputum culture 05/14/18 positive for MRSA and K. ozaenae. Treated with 14 days of Vanc and Zosyn and clinically improved. Repeat sputum culture 05/24/18 negative. Additional sputum culture obtained 05/29/18 positive for MRSA. She had initially completed 2 weeks of Vancomycin She was restarted on Vancomycin She has associated pleural effusion , s/p diagnostic and therapeutic thoracentensis done today 06/03, culture is pending (14) Pulmonary edema Status: Acute Problem details: CT chest completed 06/02/18 showed moderate left and small right pleural effusions with adjacent consolidataion consistent with pneumonia and possible cavitation with necrosis as well as findings indicative of infectious bronchopneumonia. CTA ruled out PE but showed possible edema Patient was started on lasix 20mg daily IV 06/02 (15) Hypomagnesemia Status: Acute Problem details: Replaced IV (16) Hypokalemia Status: Acute Problem details: Replaced via PEG tube (17) Pleural effusion Status: Acute Problem details: s/p thoracentensis today 06/03. 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 Herrera secondary to colonic obstruction by a mass. Path negative for malignancy. Transfer Discharge Sum: Med - Medications Active and Home Medications: Home Medications Aspirin [Lo-Dose Aspirin EC] 81 mg PO DAILY 04/18/18 [History Confirmed 05/14/18 ] Citalopram [CeleXA] 30 mg PO DAILY 04/18/18 [History Confirmed 05/14/18] Donepezil HCl [Aricept] 10 mg PO HS 04/18/18 [History Confirmed 05/14/18] Levothyroxine [Synthroid] 100 mcg PO DAILY 04/18/18 [History Confirmed 05/14/18] Simvastatin [Zocor] 20 mg PO DAILY 04/18/18 [History Confirmed 05/14/18] Cholecalciferol (D-3) [Vitamin D] 1,000 unit PO DAILY tablet 05/10/18 [Rx Confirmed 05/14/18] Multivit/Ca/Min/Fe/FA [Thera M Plus] 1 tab PO DAILY tablet 05/10/18 [Rx Confirmed 05/14/18] Tamsulosin [Flomax] 0.4 mg PO DAILY capsule 05/10/18 [Rx Confirmed 05/14/18] traZODone [TraZODone] 50 mg PO HS tablet 05/10/18 [Rx Confirmed 05/14/18] Amlodipine Besylate 10 mg PO DAILY 05/14/18 [History Confirmed 05/14/18] Hydrocodone/Acetaminophen [Hydrocodon-Acetamin 7.5-325/15] 15 ml PO Q8H PRN [History Confirmed 05/14/18] LORazepam Oral Conc [Ativan Oral Conc] 1 mg SL Q8H PRN 05/14/18 [History Confirmed 05/14/18] Active Medications Acetaminophen (Tylenol Susp) 650 mg PO Q6HR PRN PRN Reason: Fever/Mild to Moderate Pain Stop: 12/02/18 15:04 Last Admin: 06/02/18 16:45 Dose: 650 mg Acetaminophen (Tylenol 650mg Supp) 650 mg RC Q6HR PRN PRN Reason: Fever Stop: 12/02/18 20:01 Albuterol/Ipratropium (Duoneb) 3 ml IH [id number] REMBERTO Stop: 12/02/18 20:01 Last Admin: 06/03/18 16:05 Dose: 3 ml Citalopram Hydrobromide (Celexa) 30 mg PO DAILY [facility] Stop: 11/18/18 11:46 Last Admin: 06/03/18 09:40 Dose: 30 mg Donepezil HCl (Aricept) 10 mg PO HS REMBERTO Stop: 11/17/18 21:01 Last Admin: 06/02/18 20:26 Dose: 10 mg Enoxaparin Sodium (Lovenox) 80 mg 1 mg/kg (80 mg) SQ Q12HR REMBERTO PRN Reason: Protocol Stop: 12/01/18 18:01 Last Admin: 06/03/18 06:08 Dose: 80 mg Furosemide (Lasix) 20 mg IVP DAILY [facility] Stop: 12/03/18 09:01 Last Admin: 06/03/18 09:40 Dose: 20 mg Haloperidol Lactate (Haldol) 0.5 mg IVP Q6HR PRN PRN Reason: Delerium Stop: 11/29/18 10:59 Last Admin: 06/03/18 12:14 Dose: 0.5 mg Vancomycin HCl 1,500 mg/ (Sodium Chloride) 250 mls @ 166.667 mls/hr IVPB Q24H REMBERTO Stop: 12/02/18 18:01 Last Infusion: 06/03/18 12:29 Dose: Infused Piperacillin Sod/Tazobactam (Sod 3.375 gm/ Sodium Chloride) 100 mls @ 25 mls/ hr IVPB Q8HR [facility] Stop: 12/02/18 16:01 Last Admin: 06/03/18 16:38 Dose: 25 mls/hr Lansoprazole (Prevacid) 30 mg PO QAM REMBERTO PRN Reason: Protocol Stop: 12/03/18 09:01 Last Admin: 06/03/18 09:40 Dose: 30 mg Levothyroxine Sodium (Synthroid) 100 mcg PO 0630 [facility] Stop: 12/02/18 06:31 Last Admin: 06/03/18 06:08 Dose: 100 mcg Nystatin (Nystop) 1 appl TP TID [facility] Stop: 11/27/18 22:31 Last Admin: 06/03/18 14:21 Dose: 1 appl Oxycodone HCl (Oxycodone Oral Conc) 5 mg SL Q4HR PRN; Protocol PRN Reason: Analgesia Stop: 12/02/18 20:01 Last Admin: 06/03/18 13:47 Dose: 5 mg Warfarin Sodium (Coumadin Perpt) 1 each PO DAILY@1800 PRN PRN Reason: SEE COMMENTS Stop: 12/04/18 18:01 Zinc Oxide (Desitin) 1 appl TP TID PRN PRN Reason: rash to perineal area Stop: 11/27/18 09:01 Transfer Discharge Sum: Data Procedures and tests throughout hospitalization: Pending Orders 05/14/18 06:50 Resuscitation Status: Active [RES] Routine 05/14/18 22:01 Admit as Inpatient Routine 05/20/18 17:44 BIPAP [RC] .ONCE Chest percussion therapy [RC] .Q SHIFT Misc. Order2 Routine 05/21/18 12:13 Consult to [place] [CONS] Routine 05/23/18 11:06 Consult to Palliative Care [CONS] Routine 05/26/18 10:40 consult to padding gluer [Consult to Nutrition] [CONS] Routine 05/26/18 10:53 Misc. Orders Stat 05/30/18 16:19 Consult to Surgery [CONS] Routine 05/30/18 16:23 Consult to Infectious Diseases [CONS] Routine 05/30/18 17:10 Bed rest [RC] CONT 06/01/18 15:04 Desitin (Zinc Oxide) [Desitin] 1 appl TP TID PRN Haloperidol Lactate [Haldol] 0.5 mg IVP Q6HR PRN 06/01/18 18:00 Enoxaparin [Lovenox] 80 mg SQ Q12HR 06/01/18 21:00 Donepezil [Aricept] 10 mg PO HS Nystatin POWDER [Nystop] 1 appl TP TID 06/01/18 23:00 Airway suctioning [RC] .PRN Continuous pulse oximetry [RC] CONT RT has an order or consult [RC] NOW 06/01/18 23:01 Communication order [RC] CONT Vital Signs Assessment [RC] Q4H 06/02/18 06:30 Levothyroxine [Synthroid] 100 mcg PO 0630 06/02/18 06:38 Vital Signs Assessment [RC] Q4H 06/02/18 07:00 Accucheck [Glucose, blood poc measurement] [RC] .Q6 06/02/18 08:18 Misc. Orders Routine 06/02/18 08:19 May Use Peg Tube Routine 06/02/18 08:30 Apply Abdominal Binder ONCE 06/02/18 08:34 Enteral tube feeding managemen [RC] Q4H 06/02/18 08:36 Free Water [RC] AD 06/02/18 09:00 Citalopram [CeleXA] 30 mg PO DAILY 06/02/18 15:03 Acetaminophen [Tylenol Susp] 650 mg PO Q6HR PRN 06/02/18 16:00 Piperacillin/Tazobactam [Zosyn] 3.375 gm 0.9 % Sodium Chloride Mini Bag [0.9 % Sodium Chloride (Mini-Bag +)] 100 ml IVPB Q8HR 06/02/18 16:32 Culture,Blood [BC] Stat Procalcitonin Routine 06/02/18 16:34 Culture,Blood,Additional [BC] Stat 06/02/18 18:00 Vancomycin [Vancocin] 1,500 mg 0.9 % Sodium Chloride 250 ml IVPB Q24H 06/02/18 19:53 12 lead ECG assessment [RC] NOW Obtain Old EKG [RC] .ONCE 06/02/18 19:58 OXYCODONE Oral CONC [Oxycodone Oral Conc] 5 mg SL Q4HR PRN 06/02/18 20:00 Acetaminophen [Tylenol 650mg SUPP] 650 mg RC Q6HR PRN Ipratropium/Albuterol Neb [Duoneb] 3 ml IH [id number] 06/02/18 21:12 Restraints [Restraint order/monitor] [RC] once 06/02/18 23:46 Communication order [RC] CONT 06/02/18 23:47 Peripheral IV [RC] .NOW 06/02/18 Breakfast Tube Feeding Diet 06/03/18 04:36 Straight cath [Urinary straight catherization] [RC] .ONCE 06/03/18 08:36 Intake and Output, Strict [RC] DAILY 06/03/18 09:00 Furosemide [Lasix] 20 mg IVP DAILY Lansoprazole [Prevacid] 30 mg PO QAM 06/03/18 10:00 Signed consent on chart [RC] NOW 06/03/18 10:01 Consult to Interventional Radiology [CONS] Routine 06/03/18 14:20 Culture,Body Fluid [RM] Routine 06/03/18 14:50 Cytology [PTH] Routine 06/03/18 17:00 Vancomycin,Random Timed 06/04/18 04:00 Chem 7 [Basic Metabolic Panel] AM 0400 Complete Blood Count [HEME] AM 0400 MG [Magnesium] AM 0400 PT/INR [Prothrombin Time INR] [COAG] AM 0400 06/04/18 18:00 Warfarin perPT [Coumadin perPT] 1 each PO DAILY@1800 PRN 06/05/18 04:00 PT/INR [Prothrombin Time INR] [COAG] AM 0400 06/06/18 04:00 PT/INR [Prothrombin Time INR] [COAG] AM 0400 06/07/18 04:00 PT/INR [Prothrombin Time INR] [COAG] AM 0400 06/08/18 04:00 PT/INR [Prothrombin Time INR] [COAG] AM 0400 - Impressions ITS Impressions KUB X-Ray 05/18/18 14:34 IMPRESSION: 1. No evidence of an ileus. 2. Nasogastric tube in place. D/ / Abdirizak Diamond MD / Abdirizak Diamond MD Interpreting Provider: Abdirizak Diamond MD Gallbladder Ultrasound 05/21/18 10:22 IMPRESSION: Cholelithiasis. No other evidence of acute cholecystitis. D/ / 05/21/2018 12:24:46 Diego Hernandez MD / [facility] Interpreting Provider: Diego Hernandez MD Chest X-Ray 05/23/18 08:28 IMPRESSION: Persistent airspace and interstitial opacities bilaterally with likely some improvement to the consolidations previously noted to bilateral lower lobes. Findings may be on the basis of multifocal pneumonia. Continued follow-up recommended. D/ / 05/23/2018 09:25:45 Cuauhtemoc Navas MD / [facility] Interpreting Provider: Cuauhtemoc Navas MD Chest X-Ray 05/23/18 10:46 IMPRESSION: Placement of endotracheal tube with tip low lying approximately 9 mm from the anu. Suggest retraction by 1.7 cm. Placement of enteric tube which is seen to extend into the stomach, distal extent not included in field of view. Improved aeration and lung volumes to the lungs bilaterally with still persistent airspace and interstitial opacities along with bilateral pleural effusions. D/ / 05/23/2018 11:29:50 Cuauhtemoc Navas MD / ozzy Interpreting Provider: Cuauhtemoc Navas MD X-Ray 05/23/18 10:46 IMPRESSION: Enteric tube present with both tip and side-port in the body of the stomach. D/ / Cuauhtemoc Navas MD / Cuauhtemoc Navas MD Interpreting Provider: Cuauhtemoc Navas MD Head CT 05/25/18 17:06 IMPRESSION: No acute intracranial abnormality. Chronic microvascular ischemic changes. D/ / Randall Simmons / Randall Simmons Interpreting Provider: Randall Simmons Chest X-Ray 05/31/18 05:00 IMPRESSION: 1. Interval removal of all lines and tubes. 2. Stable cardiopulmonary status including diffuse airspace opacities and bilateral effusions. D/ / 05/31/2018 08:11:59 aSvi Daniel MD / [facility]old Interpreting Provider: Savi Daniel MD Abdomen/Pelvis CT 06/02/18 18:30 IMPRESSION: Moderate left and small right pleural effusions, increased when compared to the previous exam, with adjacent airspace consolidation, concerning for pneumonia. Within the areas of consolidated lung, there is heterogeneous attenuation, with likely cavitation, suggesting necrosis, which is also new finding. Within the upper lungs, there are multiple foci of consolidation noted as well, increased when compared to the previous exam, also concerning for infectious bronchopneumonia. Given the evidence of subcutaneous anasarca, correlate with any clinical evidence of superimposed pulmonary edema. Small web-like filling defect identified within the right internal jugular vein, which suggests a chronic thrombus, possibly from a previous indwelling catheter. Re- demonstration of previous partial colectomy, with left lower quadrant colostomy placement. No evidence of bowel obstruction. No focal fluid collections within the abdomen. Re- demonstration of cholelithiasis. Evidence of bilateral sacral insufficiency fractures. D/ / David Romano MD / David Romano MD Interpreting Provider: David Romano MD Chest CT 06/02/18 18:30 IMPRESSION: Moderate left and small right pleural effusions, increased when compared to the previous exam, with adjacent airspace consolidation, concerning for pneumonia. Within the areas of consolidated lung, there is heterogeneous attenuation, with likely cavitation, suggesting necrosis, which is also new finding. Within the upper lungs, there are multiple foci of consolidation noted as well, increased when compared to the previous exam, also concerning for infectious bronchopneumonia. Given the evidence of subcutaneous anasarca, correlate with any clinical evidence of superimposed pulmonary edema. Small web-like filling defect identified within the right internal jugular vein, which suggests a chronic thrombus, possibly from a previous indwelling catheter. Re- demonstration of previous partial colectomy, with left lower quadrant colostomy placement. No evidence of bowel obstruction. No focal fluid collections within the abdomen. Re- demonstration of cholelithiasis. Evidence of bilateral sacral insufficiency fractures. D/ / David Romano MD / David Romano MD Interpreting Provider: David Romano MD Thoracentesis 06/03/18 10:00 IMPRESSION: Successful ultrasound guided left thoracentesis. D/ / Randall Simmons / Randall Simmons Interpreting Provider: Randall Simmons Chest X-Ray 06/03/18 14:52 IMPRESSION: No pneumothorax following left-sided thoracentesis. Stable multifocal bilateral pulmonary infiltrate. D/ / Eric Lopez MD / Eric Lopez MD Interpreting Provider: Eric Lopez MD Chest CTA 06/03/18 23:47 IMPRESSION: 1. Assessment is slightly limited due to respiratory motion. No evidence of central pulmonary embolism. Assessment of distal branches of smaller caliber pulmonary artery is limited. 2. Moderate bilateral pleural effusion, greater on the left with compressive atelectasis of the lower lobes 3. Bilateral pulmonary opacities suspicious for pulmonary edema or pneumonia 4. Hiatal hernia D/ / Conner Oviedo MD / Conner Oviedo MD Interpreting Provider: Conner Oviedo MD Transfer Discharge Sum: Prov Date of admission: 05/14/18 06:05 Primary care physician: Albertina Huerta MD Admitting clinician: Anurag Brown Attending physician on admission: Anurag Brown Consults: 05/21/18 12:13 Consult to [place] [CONS] Routine Reason for SW Consult: discharge planning. previously placed at [facility]. 05/23/18 11:06 Consult to Palliative Care [CONS] Routine Comment: Consulting Provider: Palliative Care Ebony Reason for Consult: resp. failure Intubation x 2. sepsis GEORGI Time Notified: 11:08 Call Completed: Yes 05/26/18 10:40 consult to padding gluer [Consult to Nutrition] [CONS] Routine Comment: Consulting Provider: NUTRITION Reason for Dietary Consult: Tube Feed Start & Manage 05/30/18 16:19 Consult to Surgery [CONS] Routine Consulting Provider: Surgery [facility] Reason for Consult: decsion regarding whether or not to put PEG tube Call Completed: Yes 05/30/18 16:23 Consult to Infectious Diseases [CONS] Routine Consulting Provider: Infectious Disease Ebony Reason for Consult: MRSA pneumonia Call Completed: Yes 06/03/18 10:01 Consult to Interventional Radiology [CONS] Routine Consulting Provider: Radiology Interventional Cols Reason for Consult: Parapneumonic effusion, sepsis Call Completed: Yes Attending physician on discharge: Roberto Gomez Discharging clinician: Roberto Gomez Anticipated date of transfer: 06/03/18 Receiving physician/facility: [facility] Transfer Discharge Sum: A/P - Plan Cognitive capacity at transfer: Delirium and dementia Functional capacity at transfer: bed bound Overall status at transfer: patient is not back to baseline Disposition: Transfer Critical Access Hosp Transfer Discharge Sum: Hosp Hospital course: Ms. 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 Herrera. The patient was admitted to the hospital May 14 for acute respiratory failure, septic shock, and pneumonia. Apparently, the patient's mental status had improved somewhat, but on the day of admission the patient was noted to be in acute respiratory distress with altered mental status. Upon arrival to the ER, she was tachycardic and tachypneic with hypoxia and hypotension. Laboratory studies revealed leukocytosis with bandemia. She had lactic acidosis and acute kidney injury. Her sodium level was markedly elevated at 168. Troponin was mildly elevated at 0.07. LFTs were normal. She had a CT of the head that was negative. Chest x-ray showed progressive bilateral asymmetrical pulmonary opacities concerning for developing edema versus multifocal pneumonia. She had a CT of the chest, abdomen, and pelvis that showed bilateral pleural effusions that were improved and bilateral lower lobe opacities with lower lobe consolidation and a multifocal upper lobe bronchiolitis as well as postsurgical changes in the abdomen and ascites. Her urinalysis was positive for pyuria, but the culture only grew out Beatris albicans. Sputum culture was positive for MRSA and Klebsiella ozaenae. Blood cultures were obtained 2 sets and were negative. Due to the patient's impending respiratory failure, she was intubated. She was paced on Levophed and vasopressin for blood pressure support. Her fluid deficit was corrected with IV fluids. She had a central line placed as well. She was started empirically on Vanco and Zosyn and admitted to the intensive care unit for further evaluation. Since admission, the patient's white blood cell count initially normalized. She was extubated on May 20. She did complain of some right upper quadrant abdominal pains a gallbladder ultrasound was obtained that showed cholelithiasis without cholecystitis. The vasopressors were weaned off. She did well until May 23 when she required reintubation. Her chest x-ray at that time showed persistent air space and residual opacities bilaterally with likely some improvement to the consolidation in the bilateral lower lobes. Repeat sputum culture on 05/24/18 was negative. Repeat blood cultures on were negative 2 sets. She had a repeat CT of the head on 05/25/18 that was negative. She had a Doppler study of the right lower extremity that showed an acute SVT right SFA and popliteal vein. Her acute kidney injury and lactic acidosis resolved. Repeat blood cultures on 05/29/18 are no growth to date. Repeat sputum culture obtained 05/29/18 is positive for MRSA. She was restarted on IV vancomycin. Speech therapy saw the patient and deemed her unable to take anything by mouth. Gen. surgery was then consulted to assist with PEG tube placement per the family 's request. She was transferred to the floors after the procedure She had repeat CT chest completed 06/02/18 showed moderate left and small right pleural effusions with adjacent consolidataion consistent with pneumonia and possible cavitation with necrosis as well as findings indicative of infectious bronchopneumonia. Zosyn was again added to the regimen IR completed a thoracentensis today 06/03, culture is pending Per family request, patient is being transferred to [facility] - Time Spent with Patient Total time spent providing and/or coordinating transfer services: Greater than 30 minutes (60 mins spent with patient, family, RN, on the phone, documentation) Transfer Discharge Sum: Exam - Constitutional Vitals: Vital Signs Temp Pulse Resp BP Pulse Ox 06/03/18 16:05 20 94 06/03/18 15:48 98.4 F 104 19 117/77 95 06/03/18 11:47 98.0 F 118 20 113/69 97 06/03/18 11:26 18 96 06/03/18 07:54 22 96 06/03/18 06:57 98.1 F 93 19 119/75 97 06/03/18 04:29 99.1 F 126 18 130/72 95 06/03/18 04:03 18 99 06/02/18 23:34 100.2 F H 128 32 132/75 96 06/02/18 19:26 100.6 F H 134 34 112/73 97 Intake and Output 06/03/18 06/03/18 06/03/18 07:59 15:59 23:59 Intake Total 400 / 400 2017 / 2017 200 / 200 Output Total 1050 / 1050 150 / 150 Balance -650 / -650 1868 / 1868 200 / 200 Intake: IV Fluids 100 / 100 1558 / 1558 Magnesium Sulfate 2 GM In 0.9 % 208 / 208 Sodium Chloride 100 ML @ 104 mls/hr IVPB ONCE ONE Rx#: [id number] Zosyn 3.375 GM In 0.9 % Sodium 100 / 100 100 / 100 Chloride (Mini-Bag +) 100 ML @ 25 mls/hr IVPB Q8HR REMB[facility]O Rx#: [id number] Vancocin 1,500 MG In 0.9 % 250 / 250 Sodium Chloride 250 ML @ 166. 667 mls/hr IVPB Q24H [facility] Rx#: [id number] Oral 0 / 0 60 / 60 Free Water Intake Amount 300 / 300 400 / 400 200 / 200 Output: Stool 150 / 150 Straight Cath 1050 / 1050 Other: Meal NPO Percent of Meal Consumed 0% Stool Consistency loose Stool Color Brown # Urine Diapers 1 Weight 76.8 kg Blood Glucose* 127 153 Patient Weight 06/03/18 23:59 Weight 76.8 kg Additional comments: Vitals: Tachycardic, febrile. MAXIMUM TEMPERATURE in the past 24 hours of 100.6 General: In mild distress, possibly in pain Skin: Warm and supple. HEENT: Slightly dry mucous membranes. Positive conjunctivae pallor. Neck: Wound dressing on right neck region clean and dry. No JVD. Chest: Normal thoracic expansion. Rhonchi and rales, anterior auscultation only Heart: Normal S1 & S2; tachycardic and normal rhythm. No rubs or murmurs. Abdomen: Colostomy bag filled with brown stool, PEG tube in situ, surrounding dressing clean and dry Extremities: No clubbing, cyanosis or edema. No calf tenderness. Normal distal pulses. Neurological: Opens eyes to name call, follows simple commands, still non-verbal - VTE Documentation of Mechanical Device: Intermittent pneumatic compression device
[2018-06-03 20:46] VITALS: BP 105/67
[2018-06-03] MEDS ORDERED: Aminoglycoside Consult 1 EACH MC ONE (21:57)
[2018-06-04] MEDS ORDERED: Warfarin perPT PO PRN (18:00)
== END 2018-06-03 21:58 | disposition critical access hospital (66) | DRG 870 ==
LOC: EMEROO 01:15 → ICNU 06:05 → SUATTDRO 06:05 → ICNU 06:46 → 3ANU 06-01 14:33 → 2ANU 06-01 17:10
PROVIDERS: ADMIT Family Medicine; ATTEND Internal Medicine